=== PATIENT | female | born 1945 | race Hispanic/Latino ===

== ENCOUNTER 2017-07-15 02:46 | Inpatient (IN) | payer MEDICARE ==
[2017-07-15] MEDS ORDERED: ATROVENT IH ONE (03:30)
[2017-07-15] MEDS ORDERED: DECADRON 20 MG in NACL 0.9% 50 ML IV ONE (03:30)
[2017-07-15] MEDS ORDERED: XOPENEX IH ONE (03:30)
--- NOTE | 2017-07-15 03:35 | XRay Report ---
FINAL REPORT EXAM: XR CHEST ROUTINE 2V HISTORY: Shortness of breath COMPARISON: None available. FINDINGS:: Frontal and lateral views of the chest obtained. Mild cardiac enlargement. Prominence of the interstitium concerning for edema. No gross effusion or pneumothorax. Bony structures are grossly intact. IMPRESSION:: Findings concerning for mild pulmonary edema.
[2017-07-15] MEDS ORDERED: LASIX IV ONE (03:58)
--- NOTE | 2017-07-15 03:58 | Emergency Department Report ---
ED Shortness of Breath HPI - General Chief Complaint: Dyspnea/Respdistress Stated Complaint: PIERO Time Seen by Provider: 07/15/17 03:29 Source: patient, EMS Mode of arrival: Stretcher Limitations: No Limitations - History of Present Illness Initial Comments: 71 YO FEMALE WITH C/O SOB THAT BEGAN SUDDENLY WHILE AT HOME. PT HAS H/O CHF, HTN, AND SMOKER 1/2 PPD FOR MOST OF HER LIFE. EMS WAS CALLED TO [facility] HOME AND FOUND OXYGEN SATURATION OF 87 % ON RA, SHE WAS GIVEN A BREATHING TREATMENT AND SATURATION ELEVATED TO MID NINETIES. PT DENIES H/O COPD/EMPHYSEMA BUT THE ENTIRE ROOM SMELL OF CIGARETTE SMOKE Complaint: shortness of breath -: Sudden Severity: severe Improves With: bronchodilators, upright position Worsens With: nothing Known History Of: congestive heart failure Context: other (CIGARETTE SMOKE) Treatments Prior to Arrival: oxygen, bronchodilator - Related Data Home Oxygen Therapy: No Allergies Allergy/AdvReac Type Severity Reaction Status Date / Time No Known Allergies Allergy Unverified 07/15/17 03:10 ED Review of Systems ROS: Stated complaint: PIERO Other details as noted in HPI Constitutional: denies: chills, fever Eyes: denies: eye pain, eye discharge, vision change ENT: denies: ear pain, throat pain Respiratory: cough, shortness of breath, SOB at rest. denies: wheezing Cardiovascular: denies: chest pain, palpitations Endocrine: no symptoms reported Gastrointestinal: denies: abdominal pain, nausea, diarrhea Genitourinary: denies: urgency, dysuria, discharge Musculoskeletal: denies: back pain, joint swelling, arthralgia Skin: denies: rash, lesions Neurological: denies: headache, weakness, paresthesias Psychiatric: denies: anxiety, depression Hematological/Lymphatic: denies: easy bleeding, easy bruising ED Past Medical Hx - Past Medical History Hx Hypertension: Yes Hx Heart Attack/AMI: Yes Additional medical history: pneumonia - Surgical History Additional Surgical History: breast surgery - Social History Smoking Status: Heavy Tobacco Smoker Substance Use Type: None ED Physical Exam - General Limitations: No Limitations General appearance: alert, in distress - Head Head exam: Present: atraumatic, normocephalic - Eye Eye exam: Present: normal appearance, EOMI - ENT ENT exam: Present: mucous membranes moist - Neck Neck exam: Present: normal inspection, full ROM - Respiratory Respiratory exam: Present: normal lung sounds bilaterally, respiratory distress , decreased breath sounds - Cardiovascular Cardiovascular Exam: Present: normal rhythm, tachycardia (115). Absent: systolic murmur, diastolic murmur, rubs, gallop - GI/Abdominal GI/Abdominal exam: Present: soft, normal bowel sounds - Rectal Rectal exam: Present: deferred - Extremities Exam Extremities exam: Present: normal inspection, full ROM. Absent: pedal edema - Back Exam Back exam: Present: normal inspection, full ROM - Neurological Exam Neurological exam: Present: alert, oriented X3, CN II-XII intact - Psychiatric Psychiatric exam: Present: normal affect, normal mood - Skin Skin exam: Present: warm, dry, intact, normal color. Absent: rash ED Course Vital Signs 07/15/17 03:03 Temperature 97.7 F Pulse Rate 103 H Respiratory 24 Rate Blood Pressure 198/108 O2 Sat by Pulse 96 Oximetry ED Medical Decision Making - Lab Data Result diagrams: 07/15/17 03:40 07/15/17 03:40 - EKG Data -: EKG Interpreted by Ca EKG shows normal: sinus rhythm Rate: tachycardia - EKG Data Interpretation: other (LBBB,) - Radiology Data Radiology results: report reviewed (CXR; PULMONARY EDEMA) Critical Care Time: Yes Critical care time in (mins) excluding proc time.: 60 Critical care attestation.: If time is entered above; I have spent that time in minutes in the direct care of this critically ill patient, excluding procedure time. SERGIO Critical Care Time: 60 MINUTES ED Disposition Clinical Impression: CHF (congestive heart failure) Qualifiers: Congestive heart failure type: unspecified congestive heart failure type Congestive heart failure chronicity: acute Qualified Code(s): I50.9 - Heart failure, unspecified COPD (chronic obstructive pulmonary disease) Qualifiers: COPD type: unspecified COPD Qualified Code(s): J44.9 - Chronic obstructive pulmonary disease, unspecified Disposition: DC-09 OP ADMIT IP TO THIS HOSP Is pt being admited?: Yes Condition: Stable Time of Disposition: 05:18 (CASE REVIEWED WITH DR WHITTAKER WHO WILL ADMIT TH EPT)
[2017-07-15 04:17] LABS: Basophils % (Auto) 0.2 % (0.0-1.8); Eosinophils % (Auto) 0.1 % (0.0-4.3); Hemoglobin 14.6 gm/dl (10.1-14.3); Mean Corpuscular HGB Conc 35 % (30-34); Mean Corpuscular Hemoglobin 32 pg (28-32); Mean Corpuscular Volume 91 fl (79-97); Red Blood Count 4.62 M/mm3 (3.65-5.03); Red Cell Distribution Width 13.4 % (13.2-15.2); White Blood Count 7.5 K/mm3 (4.5-11.0)
[2017-07-15 04:20] LABS: Creatine Kinase MB 5.9 ng/mL (0.0-4.0)
[2017-07-15 04:21] LABS: Alanine Aminotransferase 23 units/L (7-56); Albumin 4.2 g/dL (3.9-5); Alkaline Phosphatase 73 units/L (35-129); Creatine Kinase 107 units/L (30-135)
[2017-07-15 04:26] LABS: Bilirubin,Direct < 0.2 mg/dL (0-0.2)
[2017-07-15 04:36] LABS: Anion Gap 21 mmol/L; BUN/Creatinine Ratio 28; Blood Urea Nitrogen 22 mg/dL (7-17); Carbon Dioxide 26 mmol/L (22-30); Chloride 99.3 mmol/L (98-107); Glucose 144 mg/dL (65-100); Sodium 142 mmol/L (137-145)
[2017-07-15 04:38] LABS: Platelet Count 123 K/mm3 (140-440)
[2017-07-15 04:48] LABS: Albumin/Globulin Ratio 1.6 %; Total Protein 6.9 g/dL (6.3-8.2)
[2017-07-15] MEDS ORDERED: PROAIR IH PRN (09:42)
--- NOTE | 2017-07-15 09:43 | History and Physical Report ---
<PB TEE - Last Filed: 07/15/17 14:18> History of Present Illness Date of examination: 07/15/17 Date of admission: 07/15/17 04:26 Chief complaint: Shortness of breath History of present illness: Patient is a 71 years old female with past medical history of hypertension, COPD and heart attack who presents to emergency department for chief complaint of shortness of breath. Until yesterday patient was at her normal baseline state of health. Patient developed difficulty of breathing yesterday and she has had progressive worsening of shortness of breath. Yesterday while she was at home walking to her bedroom, shortly thereafter, she felt like she could not catch her breath and got worried so called 911 and brought her to the Emergency Department. She is not on oxygen at home. Patient denies she has had no fevers, chills, or night sweats. No hx of recurrent pneumonia. He has no sick contact, TB exposure. Patient currently smoke half a pack a day. Past History Past Medical History: COPD, hypertension Past Surgical History: Other (breast surgery) Social history: smoking. denies: alcohol abuse Family history: hypertension Medications and Allergies Allergies Allergy/AdvReac Type Severity Reaction Status Date / Time No Known Allergies Allergy Unverified 07/15/17 03:10 Home Medications Medication Instructions Recorded Confirmed Last Taken Type Carvedilol [Coreg] 6.25 mg PO QDAY 07/15/17 07/15/17 Unknown History Citalopram [celeXA] 20 mg PO QDAY 07/15/17 07/15/17 Unknown History Digoxin [Lanoxin] 0.25 mg PO DAILY 07/15/17 07/15/17 Unknown History Lovastatin [Altoprev] 20 mg PO DAILY 07/15/17 07/15/17 Unknown History Spironolactone [Aldactone] 25 mg PO QDAY 07/15/17 07/15/17 Unknown History Active Meds: Active Medications Albuterol (Proair) 2 puff IH Q4HRT PRN PRN Reason: Shortness Of Breath Albuterol/Ipratropium (Duoneb *Not For Prn Use*) 1 ampul IH Q6HRT ANG[facility]LICA Furosemide (Lasix) 40 mg IV BID ANGÉLICA Levofloxacin/Dextrose (Levaquin 750mg/150ml) 750 mg in 150 mls @ 100 mls/hr IV Q24HR [facility] PRN Reason: Protocol Methylprednisolone Sodium Succinate (Solu-Medrol) 60 mg IV Q8HR ANGÉLICA Review of Systems Constitutional: no weight gain, no fever, no chills Ears, nose, mouth and throat: nasal congestion, no nose pain, no nasal discharge Breasts: no swelling, no mass Cardiovascular: lightheadedness, shortness of breath, dyspnea on exertion, paroxysmal nocturnal dyspnea, no chest pain, no edema, no syncope Respiratory: cough, shortness of breath, dyspnea on exertion Gastrointestinal: no diarrhea, no constipation, no change in bowel habits Genitourinary Female: no dysmenorrhea, no flank pain Rectal: no incontinence, no bleeding Musculoskeletal: no arm numbness/tingling, no low back pain, no shooting leg pain Integumentary: no sores, no wounds, no jaundice Neurological: no weakness, no parathesias, no numbness Psychiatric: no change in sleep habits, no sleep disturbances, no insomnia, no hypersomnia Endocrine: no heat intolerance, no polyphagia, no excessive thirst Hematologic/Lymphatic: no easy bruising, no easy bleeding Allergic/Immunologic: no urticaria, no allergic rhinitis Exam - Constitutional Vitals: Temp Pulse Resp BP Pulse Ox 98.1 F 99 H 18 179/94 98 07/15/17 06:06 07/15/17 06:06 07/15/17 06:06 07/15/17 06:06 07/15/17 07:41 General appearance: Present: no acute distress - EENT Eyes: Present: PERRL ENT: hearing intact - Neck Neck: Present: supple - Respiratory Respiratory effort: normal Respiratory: bilateral: rales, wheezing - Cardiovascular Rhythm: regular Heart Sounds: Present: S1 & S2 - Abdominal General gastrointestinal: Present: soft, non-tender - Integumentary Integumentary: Present: clear, warm, dry - Musculoskeletal Musculoskeletal: strength equal bilaterally - Psychiatric Psychiatric: appropriate mood/affect - Neurologic Neurologic: CNII-XII intact - Allied Health Allied health notes reviewed: nursing Results - Labs CBC & Chem 7: 07/15/17 03:40 07/15/17 03:40 Labs: Laboratory Last Values WBC 7.5 K/mm3 (4.5-11.0) 07/15/17 03:40 RBC 4.62 M/mm3 (3.65-5.03) 07/15/17 03:40 Hgb 14.6 gm/dl (10.1-14.3) H 07/15/17 03:40 Hct 42.0 % (30.3-42.9) 07/15/17 03:40 MCV 91 fl (79-97) 07/15/17 03:40 MCH 32 pg (28-32) 07/15/17 03:40 MCHC 35 % (30-34) H 07/15/17 03:40 RDW 13.4 % (13.2-15.2) 07/15/17 03:40 Plt Count 123 K/mm3 (140-440) L 07/15/17 03:40 Lymph % (Auto) 18.3 % (13.4-35.0) 07/15/17 03:40 Toombs % (Auto) 4.9 % (0.0-7.3) 07/15/17 03:40 Eos % (Auto) 0.1 % (0.0-4.3) 07/15/17 03:40 Baso % (Auto) 0.2 % (0.0-1.8) 07/15/17 03:40 Lymph # 1.4 K/mm3 (1.2-5.4) 07/15/17 03:40 Toombs # 0.4 K/mm3 (0.0-0.8) 07/15/17 03:40 Eos # 0.0 K/mm3 (0.0-0.4) 07/15/17 03:40 Baso # 0.0 K/mm3 (0.0-0.1) 07/15/17 03:40 Seg Neutrophils % 76.5 % (40.0-70.0) H 07/15/17 03:40 Seg Neutrophils # 5.7 K/mm3 (1.8-7.7) 07/15/17 03:40 D-Dimer 243.73 ng/mlDDU (0-234) H 07/15/17 03:40 Sodium 142 mmol/L (137-145) 07/15/17 03:40 Potassium 4.0 mmol/L (3.6-5.0) 07/15/17 03:40 Chloride 99.3 mmol/L (98-107) 07/15/17 03:40 Carbon Dioxide 26 mmol/L (22-30) 07/15/17 03:40 Anion Gap 21 mmol/L 07/15/17 03:40 BUN 22 mg/dL (7-17) H 07/15/17 03:40 Creatinine 0.8 mg/dL (0.7-1.2) 07/15/17 03:40 Estimated GFR > 60 ml/min 07/15/17 03:40 BUN/Creatinine Ratio 28 % 07/15/17 03:40 Glucose 144 mg/dL (65-100) H 07/15/17 03:40 Calcium 9.0 mg/dL (8.4-10.2) 07/15/17 03:40 Total Bilirubin 0.40 mg/dL (0.1-1.2) 07/15/17 03:40 Direct Bilirubin < 0.2 mg/dL (0-0.2) 07/15/17 03:40 AST 23 units/L (5-40) 07/15/17 03:40 ALT 23 units/L (7-56) 07/15/17 03:40 Alkaline Phosphatase 73 units/L (35-129) 07/15/17 03:40 Total Creatine Kinase 107 units/L (30-135) 07/15/17 03:40 CK-MB (CK-2) 5.9 ng/mL (0.0-4.0) H 07/15/17 03:40 CK-MB (CK-2) Rel Index 5.5 (0-4) H 07/15/17 03:40 Troponin T 0.018 ng/mL (0.00-0.029) 07/15/17 03:40 NT-Pro-B Natriuret Pep 03622 pg/mL (0-900) H 07/15/17 03:40 Total Protein 6.9 g/dL (6.3-8.2) 07/15/17 03:40 Albumin 4.2 g/dL (3.9-5) 07/15/17 03:40 Albumin/Globulin Ratio 1.6 % 07/15/17 03:40 - Imaging and Cardiology Chest x-ray: image reviewed (mild pulmonary edema) Assessment and Plan Assessment and plan: Patient is a 71 years old female with past medical history of hypertension, COPD and heart attack who presents to emergency department for chief complaint of shortness of breath. Acute respiratory failure with hypoxia Patient oxygen saturation improved with 2LNC; currently SPO2 98%. No acute respiratory distress noted. Aggressive Nebulizers/Inhalers ABG when necessary Oxygen supplement Supportive care Acute on chronic Congestive heart failure/pulmonary edema Etiology most likely diastolic Echocardiogram ordered CTA showed right pleural effusion Started on Diuresis, beta blockers and ACEI/ARB Strict I&O's and daily weights Low-sodium/cardiac diet/fluid restriction Closely monitor electrolytes Cardiology evaluation Acute COPD exacerbation Continue on Duoneb every 6 hours Started IV steroid Solumedrol Initiated empiric IV Rocephin and azithromycin Oxygen as necessary Hypertensive urgency Continue home antihypertensive medications Closely monitor blood pressure Tobacco abuse Smoking cessation counseling done. Patient strongly advised to quit. DVT prophylaxis Heparin Advance Directives: Yes VTE prophylaxis?: Chemical Contraindication Mechanical VTE Prophylaxis: Contraindicated Plan of care discussed with patient/family: Yes <SEVERINO PORTILLO - Last Filed: 07/15/17 16:27> History of Present Illness Date of admission: 07/15/17 04:26 Medications and Allergies Active Meds: Active Medications Albuterol (Proventil) 2.5 mg IH Q4HRT PRN PRN Reason: Shortness Of Breath Albuterol/Ipratropium (Duoneb *Not For Prn Use*) 1 ampul IH Q6HRT [facility] Last Admin: 07/15/17 13:42 Dose: 1 ampul Amoxicillin/Clavulanate Potassium (Augmentin 875 Mg) 1 each PO Q12HR [facility] Arformoterol Tartrate (Brovana Nebu) 15 mcg IH Q12HRT [facility] Budesonide (Pulmicort) 0.25 mg IH Q12HRT [facility] Diltiazem HCl (Cardizem) 60 mg PO Q6HR [facility] Last Admin: 07/15/17 14:55 Dose: 60 mg Furosemide (Lasix) 20 mg IV BID [facility] Last Admin: 07/15/17 15:03 Dose: 20 mg Lisinopril (Zestril) 40 mg PO QDAY [facility] Last Admin: 07/15/17 14:56 Dose: 40 mg Methylprednisolone Sodium Succinate (Solu-Medrol) 60 mg IV Q8H [facility] Last Admin: 07/15/17 14:53 Dose: 60 mg Exam - Physical Exam Narrative exam: VITAL SIGNS: Reviewed. GENERAL: The patient appeared chronically ill,. Vital signs as documented. HEAD: No signs of head trauma. Marked temporal wasting, cachexia EYES: Pupils are equal. Extraocular motions intact. EARS: Hearing grossly intact. MOUTH: Oropharynx is normal. NECK: No adenopathy, no JVD. CHEST: Chest with diminished breath sounds bilaterally. No wheezes, rales, or rhonchi. CARDIAC: Regular rate and rhythm. S1 and S2, without murmurs, gallops, or rubs. VASCULAR: No Edema. Peripheral pulses normal and equal in all extremities. ABDOMEN: Soft, without detectable tenderness. No sign of distention. No rebound or guarding, and no masses palpated. Bowel Sounds normal. MUSCULOSKELETAL: Good range of motion of all major joints. Extremities without clubbing, cyanosis or edema. NEUROLOGIC EXAM: Alert and oriented x 3. No focal sensory or strength deficits. Speech normal. Follows commands. PSYCHIATRIC: Mood normal. SKIN: No rash or lesions. - Constitutional Vitals: Temp Pulse Resp BP Pulse Ox 98.0 F 102 H 20 160/94 94 07/15/17 09:44 07/15/17 14:56 07/15/17 14:07 07/15/17 14:56 07/15/17 09:44 Results - Labs CBC & Chem 7: 07/15/17 03:40 07/15/17 03:40 Labs: Laboratory Last Values WBC 7.5 K/mm3 (4.5-11.0) 07/15/17 03:40 RBC 4.62 M/mm3 (3.65-5.03) 07/15/17 03:40 Hgb 14.6 gm/dl (10.1-14.3) H 07/15/17 03:40 Hct 42.0 % (30.3-42.9) 07/15/17 03:40 MCV 91 fl (79-97) 07/15/17 03:40 MCH 32 pg (28-32) 07/15/17 03:40 MCHC 35 % (30-34) H 07/15/17 03:40 RDW 13.4 % (13.2-15.2) 07/15/17 03:40 Plt Count 123 K/mm3 (140-440) L 07/15/17 03:40 Lymph % (Auto) 18.3 % (13.4-35.0) 07/15/17 03:40 Toombs % (Auto) 4.9 % (0.0-7.3) 07/15/17 03:40 Eos % (Auto) 0.1 % (0.0-4.3) 07/15/17 03:40 Baso % (Auto) 0.2 % (0.0-1.8) 07/15/17 03:40 Lymph # 1.4 K/mm3 (1.2-5.4) 07/15/17 03:40 Toombs # 0.4 K/mm3 (0.0-0.8) 07/15/17 03:40 Eos # 0.0 K/mm3 (0.0-0.4) 07/15/17 03:40 Baso # 0.0 K/mm3 (0.0-0.1) 07/15/17 03:40 Seg Neutrophils % 76.5 % (40.0-70.0) H 07/15/17 03:40 Seg Neutrophils # 5.7 K/mm3 (1.8-7.7) 07/15/17 03:40 D-Dimer 243.73 ng/mlDDU (0-234) H 07/15/17 03:40 Sodium 142 mmol/L (137-145) 07/15/17 03:40 Potassium 4.0 mmol/L (3.6-5.0) 07/15/17 03:40 Chloride 99.3 mmol/L (98-107) 07/15/17 03:40 Carbon Dioxide 26 mmol/L (22-30) 07/15/17 03:40 Anion Gap 21 mmol/L 07/15/17 03:40 BUN 22 mg/dL (7-17) H 07/15/17 03:40 Creatinine 0.8 mg/dL (0.7-1.2) 07/15/17 03:40 Estimated GFR > 60 ml/min 07/15/17 03:40 BUN/Creatinine Ratio 28 % 07/15/17 03:40 Glucose 144 mg/dL (65-100) H 07/15/17 03:40 Calcium 9.0 mg/dL (8.4-10.2) 07/15/17 03:40 Total Bilirubin 0.40 mg/dL (0.1-1.2) 07/15/17 03:40 Direct Bilirubin < 0.2 mg/dL (0-0.2) 07/15/17 03:40 AST 23 units/L (5-40) 07/15/17 03:40 ALT 23 units/L (7-56) 07/15/17 03:40 Alkaline Phosphatase 73 units/L (35-129) 07/15/17 03:40 Total Creatine Kinase 107 units/L (30-135) 07/15/17 03:40 CK-MB (CK-2) 5.9 ng/mL (0.0-4.0) H 07/15/17 03:40 CK-MB (CK-2) Rel Index 5.5 (0-4) H 07/15/17 03:40 Troponin T 0.018 ng/mL (0.00-0.029) 07/15/17 03:40 NT-Pro-B Natriuret Pep 08875 pg/mL (0-900) H 07/15/17 03:40 Total Protein 6.9 g/dL (6.3-8.2) 07/15/17 03:40 Albumin 4.2 g/dL (3.9-5) 07/15/17 03:40 Albumin/Globulin Ratio 1.6 % 07/15/17 03:40 - Imaging and Cardiology Chest x-ray: image reviewed Assessment and Plan Assessment and plan: I saw and evaluated the patient. I agree with the findings and the plan of care as documented in the Nurse Practitioner's~note, with the following corrections and additions. Cachexia with anorexia BMI of 19. Sinus tachycardia Discussed with patient extensively patient has 1-1/2 pack day smoking history for almost her entire life. She is at this point considering quitting but has not committed to date. She reports improvement in her orthopnea. She does follow with Dr. joao Salgado. We'll discontinue IV Rocephin and azithromycin on place patient on Augmentin. We'll taper steroids as needed in the a.m. We'll restart home medication considering sinus tachycardia. Anticipate improvement in symptomatology. Cardiology consult appreciated.
[2017-07-15] MEDS ORDERED: LEVAQUIN 750MG/150ML 750 MG/150 ML BAG IV SCH ×2 (10:00→13:00)
[2017-07-15] MEDS ORDERED: APRESOLINE IV PRN (10:49)
[2017-07-15] MEDS ORDERED: APRESOLINE ONE (10:58)
[2017-07-15] MEDS ORDERED: APRESOLINE IV ONE (11:10)
--- NOTE | 2017-07-15 11:21 | Cat Scan Report ---
CTA CHEST: HISTORY: Elevated d-dimer. COMPARISON: none. TECHNIQUE: Helical CT in 1.25mm intervals following IV contrast. Pulmonary embolus protocol. Sagittal and coronal reformatted images. Rotational MIP images. FINDINGS: Contrast bolus is satisfactory. No pulmonary embolus is identified. Thyroid gland: Normal. Tracheobronchial tree: Normal. Esophagus: Normal. Heart: There is mild to moderate cardiomegaly. Pericardium: Normal. Mediastinum: Normal. Aortic calcifications are noted. Lung Fleming: Minor linear scarring is noted in the lateral right lower lobe. The remainder the lungs are clear. Trace right pleural effusion. Pleural Spaces: Normal. Musculoskeletal: Osteopenia and degenerative changes. No evidence for fracture or suspicious bony lesion. IMPRESSION: No evidence for pulmonary embolus. Cardiomegaly and trace right pleural effusion.
[2017-07-15] MEDS ORDERED: PROVENTIL IH PRN (12:15)
--- NOTE | 2017-07-15 12:25 | Consultation ---
History of Present Illness Consult date: 07/15/17 Requesting physician: SEVERINO PORTILLO Consult reason: congestive heart failure History of present illness: The patient is a 71 years old female with past medical history significant for hypertension, COPD and tobacco use. She is previously unknown to our practice. She presented with c/o SOB since yesterday. Until yesterday patient states that she was in her normal baseline state of health. Patient developed difficulty breathing yesterday and she has had progressive worsening of shortness of breath. She states she was also experiencing chest pressure and a smothering sensation when lying flat. She denies any chest pain, palpitations, n/v, diaphoresis, dizziness or syncope. She denies any prior cardiac issues or prior cardiac evaluation. BP on admission was noted to be 198/108. DDimer was noted to be elevated and thus pt underwent chest CTA which was negative for PE, showed trace right pleural effusion. Pro-BNP [id number]. Admisison EKG demonstrates SR with LBBB. Past History Past Medical History: COPD, hypertension Past Surgical History: Other (breast surgery) Social history: smoking. denies: alcohol abuse Family history: hypertension Medications and Allergies Allergies Allergy/AdvReac Type Severity Reaction Status Date / Time No Known Allergies Allergy Unverified 07/15/17 03:10 Active Meds: Active Medications Albuterol (Proventil) 2.5 mg IH Q4HRT PRN PRN Reason: Shortness Of Breath Albuterol/Ipratropium (Duoneb *Not For Prn Use*) 1 ampul IH Q6HRT ANGÉLICA Arformoterol Tartrate (Brovana Nebu) 15 mcg IH Q12HRT ANGÉLICA Budesonide (Pulmicort) 0.25 mg IH Q12HRT ANGÉLICA Furosemide (Lasix) 40 mg IV BID ANGÉLICA Levofloxacin/Dextrose (Levaquin 750mg/150ml) 750 mg in 150 mls @ 100 mls/hr IV Q48H ANGÉLICA PRN Reason: Protocol Methylprednisolone Sodium Succinate (Solu-Medrol) 60 mg IV Q8H ANGÉLICA Review of Systems Constitutional: no weight loss, no weight gain, no fever, no chills, no sweats Ears, nose, mouth and throat: no ear pain, no nose pain, no sinus pressure, no sinus pain Cardiovascular: orthopnea, shortness of breath, dyspnea on exertion, high blood pressure, no chest pain, no palpitations, no rapid/irregular heart beat, no edema, no syncope, no lightheadedness, no leg edema Respiratory: shortness of breath, dyspnea on exertion, no cough, no congestion, no wheezing, no pain on inspiration Gastrointestinal: no abdominal pain, no nausea, no vomiting, no diarrhea, no constipation, no change in bowel habits Genitourinary Female: no pelvic pain, no flank pain, no dysuria, no urinary frequency, no urgency Musculoskeletal: no neck stiffness, no neck pain, no shooting arm pain, no arm numbness/tingling, no low back pain, no shooting leg pain, no leg numbness/ tingling, no redness of joints Integumentary: no rash, no pruritis, no redness, no sores, no wounds Neurological: no head injury, no paralysis, no weakness, no parathesias, no numbness, no tingling, no seizures, no syncope Psychiatric: no anxiety Endocrine: no cold intolerance, no heat intolerance Hematologic/Lymphatic: no easy bruising, no easy bleeding, no lymphadenopathy Allergic/Immunologic: no urticaria, no wheezing, no persistent infections Physical Examination Vital Signs Temp Pulse Resp BP Pulse Ox 97.7 F 103 H 24 198/108 96 07/15/17 03:03 07/15/17 03:03 07/15/17 03:03 07/15/17 03:03 07/15/17 03:03 General appearance: no acute distress HEENT: Positive: PERRL, Normocephaly, Mucus Membranes Moist Neck: Positive: neck supple, trachea midline Cardiac: Positive: Reg Rate and Rhythm, S1/S2, Systolic Murmur Lungs: Positive: clear to auscultation Neuro: Positive: Grossly Intact, Cranial Nerve 2-12 Intact Abdomen: Positive: Soft. Negative: Tender Skin: Positive: Clear. Negative: Rash Musculoskeletal: No Fluid Collection, No Pain, Normal Range of Motion Results 07/15/17 03:40 07/15/17 03:40 Cardiac Enzymes 07/15/17 Range/Units 03:40 AST 23 (5-40) units/L CK-MB (CK-2) 5.9 H (0.0-4.0) ng/mL CBC 07/15/17 Range/Units 03:40 WBC 7.5 (4.5-11.0) K/mm3 RBC 4.62 (3.65-5.03) M/mm3 Hgb 14.6 H (10.1-14.3) gm/dl Hct 42.0 (30.3-42.9) % Plt Count 123 L (140-440) K/mm3 Lymph # 1.4 (1.2-5.4) K/mm3 [place] # 0.4 (0.0-0.8) K/mm3 Eos # 0.0 (0.0-0.4) K/mm3 Baso # 0.0 (0.0-0.1) K/mm3 Comprehensive Metabolic Panel 07/15/17 07/15/17 Range/Units 03:40 03:40 Sodium 142 (137-145) mmol/L Potassium 4.0 (3.6-5.0) mmol/L Chloride 99.3 (98-107) mmol/L Carbon Dioxide 26 (22-30) mmol/L BUN 22 H (7-17) mg/dL Creatinine 0.8 (0.7-1.2) mg/dL Glucose 144 H (65-100) mg/dL Calcium 9.0 (8.4-10.2) mg/dL Direct Bilirubin < 0.2 (0-0.2) mg/dL AST 23 (5-40) units/L ALT 23 (7-56) units/L Alkaline Phosphatase 73 (35-129) units/L Total Protein 6.9 (6.3-8.2) g/dL Albumin 4.2 (3.9-5) g/dL - Imaging and Cardiology Echo: pending EKG: report reviewed, image reviewed EKG interpretations - Telemetry EKG Rhythm: Sinus Rhythm - EKG Sinus rhythms and dysrhythmias: sinus rhythm AV and intraventricular conduction: left bundle branch block Assessment and Plan Pt's accelerated HTN could be contributing to acutely decompensated heart failure. Optimize anti-hypertensive regimen - initiate cardizem and lisinopril. Cont diuresis with IV lasix, 20mg BID. Obtain echo. Plan for pharmacologic stress test in AM. The patient has been seen in conjunction with Dr. Moss who agrees with the assessment and plan of care. - Patient Problems (1) Acute heart failure Current Visit: Yes Status: Acute (2) Accelerated hypertension Current Visit: Yes Status: Acute (3) Left bundle branch block Current Visit: Yes Status: Acute (4) COPD (chronic obstructive pulmonary disease) Current Visit: Yes Status: Chronic Qualifiers: COPD type: unspecified COPD Qualified Code(s): J44.9 - Chronic obstructive pulmonary disease, unspecified
[2017-07-15] MEDS ORDERED: LASIX IV SCH (13:00)
[2017-07-15] MEDS: DUONEB *Not for PRN Use IH SCH ×2 (13:42→19:18)
[2017-07-15] MEDS: CARDIZEM PO SCH ×2 (14:55→21:59)
[2017-07-15] MEDS: ZESTRIL PO SCH (14:56)
[2017-07-15] MEDS: LASIX IV SCH ×2 (15:03→21:58)
[2017-07-15] MEDS: BROVANA NEBU IH SCH (19:17)
[2017-07-15] MEDS: PULMICORT IH SCH (19:17)
[2017-07-15] MEDS: AUGMENTIN 875 MG PO SCH (21:59)
[2017-07-16] MEDS: CARDIZEM PO SCH ×4 (00:50→23:13)
[2017-07-16] MEDS: DUONEB *Not for PRN Use IH SCH ×4 (01:30→20:26)
[2017-07-16 06:16] LABS: Calcium 8.8 mg/dL (8.4-10.2); Potassium 3.9 mmol/L (3.6-5.0)
[2017-07-16] MEDS ORDERED: LEXISCAN IV ONE ×2 (08:11→08:15)
[2017-07-16] MEDS: PULMICORT IH SCH ×2 (09:33→20:26)
[2017-07-16] MEDS: BROVANA NEBU IH SCH ×2 (09:34→20:26)
[2017-07-16] MEDS ORDERED: ALDACTONE PO SCH (10:00)
[2017-07-16] MEDS ORDERED: LANOXIN PO SCH (10:00)
[2017-07-16] MEDS ORDERED: CARDIZEM PO SCH (10:00)
--- NOTE | 2017-07-16 10:23 | Progress Note ---
Assessment and Plan Assessment and plan: Assessment and Plan Assessment and plan: Patient is a 71 years old female with past medical history of hypertension, COPD and heart attack who presents to emergency department for chief complaint of shortness of breath. Acute respiratory failure with hypoxia Patient oxygen saturation improved with 2LNC; currently SPO2 98%. No acute respiratory distress noted. Aggressive Nebulizers/Inhalers ABG when necessary Oxygen supplement Supportive care Acute on chronic Congestive heart failure/pulmonary edema Etiology most likely diastolic Echocardiogram ordered CTA showed right pleural effusion Started on Diuresis, beta blockers and ACEI/ARB Strict I&O's and daily weights Low-sodium/cardiac diet/fluid restriction Closely monitor electrolytes Cardiology evaluation Acute COPD exacerbation Continue on Duoneb every 6 hours On IV steroid Solumedrol Initiated empiric IV Rocephin and azithromycin Oxygen as necessary Hypertensive urgency Continue home antihypertensive medications Closely monitor blood pressure Tobacco abuse Smoking cessation counseling done. Patient strongly advised to quit. DVT prophylaxis Heparin History Interval history: Sob better Hospitalist Physical - Constitutional Vitals: Temp Pulse Resp BP Pulse Ox 98.0 F 97 H 20 85/51 95 07/16/17 04:16 07/16/17 09:45 07/16/17 09:45 07/16/17 04:16 07/16/17 09:34 General appearance: Present: no acute distress - EENT Eyes: Present: PERRL, EOM intact ENT: hearing intact - Neck Neck: Present: supple, normal ROM - Respiratory Respiratory: bilateral: rhonchi, wheezing - Cardiovascular Heart rate: 90 Rhythm: regular - Extremities Extremities: no ischemia, pulses intact Peripheral Pulses: within normal limits - Abdominal General gastrointestinal: soft, non-tender, non-distended - Integumentary Integumentary: Present: clear, warm - Psychiatric Psychiatric: appropriate mood/affect, intact judgment & insight, memory intact, cooperative - Neurologic Neurologic: CNII-XII intact, gait normal - Allied Health Allied health notes reviewed: nursing, case management Results - Labs CBC & Chem 7: 07/15/17 03:40 07/17/17 04:17 Labs: Laboratory Last Values WBC 7.5 K/mm3 (4.5-11.0) 07/15/17 03:40 RBC 4.62 M/mm3 (3.65-5.03) 07/15/17 03:40 Hgb 14.6 gm/dl (10.1-14.3) H 07/15/17 03:40 Hct 42.0 % (30.3-42.9) 07/15/17 03:40 MCV 91 fl (79-97) 07/15/17 03:40 MCH 32 pg (28-32) 07/15/17 03:40 MCHC 35 % (30-34) H 07/15/17 03:40 RDW 13.4 % (13.2-15.2) 07/15/17 03:40 Plt Count 123 K/mm3 (140-440) L 07/15/17 03:40 Lymph % (Auto) 18.3 % (13.4-35.0) 07/15/17 03:40 [place] % (Auto) 4.9 % (0.0-7.3) 07/15/17 03:40 Eos % (Auto) 0.1 % (0.0-4.3) 07/15/17 03:40 Baso % (Auto) 0.2 % (0.0-1.8) 07/15/17 03:40 Lymph # 1.4 K/mm3 (1.2-5.4) 07/15/17 03:40 [place] # 0.4 K/mm3 (0.0-0.8) 07/15/17 03:40 Eos # 0.0 K/mm3 (0.0-0.4) 07/15/17 03:40 Baso # 0.0 K/mm3 (0.0-0.1) 07/15/17 03:40 Seg Neutrophils % 76.5 % (40.0-70.0) H 07/15/17 03:40 Seg Neutrophils # 5.7 K/mm3 (1.8-7.7) 07/15/17 03:40 D-Dimer 243.73 ng/mlDDU (0-234) H 07/15/17 03:40 Sodium 143 mmol/L (137-145) 07/16/17 05:40 Potassium 3.9 mmol/L (3.6-5.0) 07/16/17 05:40 Chloride 96.0 mmol/L (98-107) L 07/16/17 05:40 Carbon Dioxide 27 mmol/L (22-30) 07/16/17 05:40 Anion Gap 24 mmol/L 07/16/17 05:40 BUN 36 mg/dL (7-17) H 07/16/17 05:40 Creatinine 1.3 mg/dL (0.7-1.2) H D 07/16/17 05:40 Estimated GFR 40 ml/min 07/16/17 05:40 BUN/Creatinine Ratio 28 % 07/16/17 05:40 Glucose 148 mg/dL (65-100) H 07/16/17 05:40 Calcium 8.8 mg/dL (8.4-10.2) 07/16/17 05:40 Total Bilirubin 0.40 mg/dL (0.1-1.2) 07/15/17 03:40 Direct Bilirubin < 0.2 mg/dL (0-0.2) 07/15/17 03:40 AST 23 units/L (5-40) 07/15/17 03:40 ALT 23 units/L (7-56) 07/15/17 03:40 Alkaline Phosphatase 73 units/L (35-129) 07/15/17 03:40 Total Creatine Kinase 107 units/L (30-135) 07/15/17 03:40 CK-MB (CK-2) 5.9 ng/mL (0.0-4.0) H 07/15/17 03:40 CK-MB (CK-2) Rel Index 5.5 (0-4) H 07/15/17 03:40 Troponin T 0.018 ng/mL (0.00-0.029) 07/15/17 03:40 NT-Pro-B Natriuret Pep 68198 pg/mL (0-900) H 07/15/17 03:40 Total Protein 6.9 g/dL (6.3-8.2) 07/15/17 03:40 Albumin 4.2 g/dL (3.9-5) 07/15/17 03:40 Albumin/Globulin Ratio 1.6 % 07/15/17 03:40
[2017-07-16] MEDS: COREG PO SCH (12:37)
[2017-07-16] MEDS: ZESTRIL PO SCH (12:38)
[2017-07-16] MEDS: celeXA PO SCH (12:38)
[2017-07-16] MEDS: AUGMENTIN 875 MG PO SCH ×2 (12:38→23:13)
--- NOTE | 2017-07-16 14:32 | Progress Note ---
Assessment and Plan Hold diuretics for now due to increased BUN and creatinine levels. Discontinue digoxin. Await echocardiogram. She will benefit from coronary angiography on Tuesday morning due to abnormal stress test. - Patient Problems (1) Acute heart failure Current Visit: Yes Status: Acute (2) Chest pain Current Visit: Yes Status: Acute (3) Abnormal stress test Current Visit: Yes Status: Acute (4) Accelerated hypertension Current Visit: Yes Status: Acute (5) Left bundle branch block Current Visit: Yes Status: Acute (6) COPD (chronic obstructive pulmonary disease) Current Visit: Yes Status: Chronic Qualifiers: COPD type: unspecified COPD Qualified Code(s): J44.9 - Chronic obstructive pulmonary disease, unspecified Subjective Date of service: 07/16/17 Principal diagnosis: Acute HF, Accelerated HTN, Chest Pain, LBBB, COPD Interval history: She is less short of breath. She underwent pharmacologic stress test with nuclear imaging this morning which was positive for ischemia. Objective Vital Signs Temp Pulse Pulse Resp Resp BP Pulse Ox 07/16/17 12:57 88 07/16/17 10:22 95 07/16/17 09:45 97 H 20 07/16/17 09:34 95 H 20 95 07/16/17 08:42 92 H 140/63 07/16/17 08:41 89 149/61 07/16/17 08:40 97 H 151/76 07/16/17 08:39 92 H 152/69 07/16/17 08:38 105 H 148/67 07/16/17 08:37 101 H 139/71 07/16/17 08:03 67 141/61 07/16/17 04:16 98.0 F 84 18 85/51 99 07/16/17 00:50 52 L 131/60 07/16/17 00:22 98.3 F 85 18 131/60 98 07/15/17 19:55 98.1 F 74 18 111/94 83 L 07/15/17 19:27 74 18 07/15/17 19:17 68 18 98 07/15/17 16:00 98.8 F 85 20 125/80 99 07/15/17 15:54 97.6 F 91 H 18 107/43 93 07/15/17 14:56 102 H 160/94 07/15/17 14:55 102 H 160/94 07/15/17 14:07 98 H 20 - Physical Examination General: No Apparent Distress HEENT: Positive: PERRL, Normocephaly, Mucus Membranes Moist Neck: Positive: neck supple, trachea midline Cardiac: Positive: Reg Rate and Rhythm, S1/S2 Lungs: Positive: Rhonchi Neuro: Positive: Grossly Intact, Cranial Nerve 2-12 Intact Abdomen: Positive: Soft, Active Bowel Sounds. Negative: Tender Skin: Positive: Clear. Negative: Rash Musculoskeletal: Normal Range of Motion Extremities: Absent: edema - Labs and Meds Comprehensive Metabolic Panel 07/16/17 Range/Units 05:40 Sodium 143 (137-145) mmol/L Potassium 3.9 (3.6-5.0) mmol/L Chloride 96.0 L (98-107) mmol/L Carbon Dioxide 27 (22-30) mmol/L BUN 36 H (7-17) mg/dL Creatinine 1.3 H D (0.7-1.2) mg/dL Glucose 148 H (65-100) mg/dL Calcium 8.8 (8.4-10.2) mg/dL - Imaging and Cardiology EKG: report reviewed, image reviewed Echo: pending - EKG Sinus rhythms and dysrhythmias: sinus rhythm AV and intraventricular conduction: left bundle branch block
--- NOTE | 2017-07-16 21:33 | Treadmill Report ---
REASON FOR STUDY: Acute heart failure and left bundle-branch block. STRESS TEST PROTOCOL: The patient received 0.4 mg of Lexiscan intravenously over 10 seconds. Technetium-99m tetrofosmin was subsequently injected. Baseline EKG, normal sinus rhythm with left bundle-branch block, septal myocardial infarction of undetermined age. Lexiscan EKG, no significant change from baseline. No chest pain. No arrhythmias. IMPRESSION: Nondiagnostic due to baseline EKG abnormalities. Nuclear imaging report to follow. JOB# [id number] AGO/NTS
[2017-07-17] MEDS: DUONEB *Not for PRN Use IH SCH ×5 (03:10→20:33)
[2017-07-17] MEDS: CARDIZEM PO SCH ×2 (03:27→13:36)
[2017-07-17 05:57] LABS: Calcium 8.7 mg/dL (8.4-10.2); Chloride 97.7 mmol/L (98-107); Potassium 3.4 mmol/L (3.6-5.0)
--- NOTE | 2017-07-17 07:46 | Treadmill Report ---
THALLIUM REPORT REASON FOR STUDY: Chest pain. IMAGING PROTOCOL: The patient received 10 mCi of technetium-99m Tetrofosmin for rest imaging, and 28 mCi of technetium-99m Tetrofosmin for stress imaging. Imaging for all procedures was completed 30-90 minutes following the initial injection of Technetium 99m Tetrofosmin. SPECT imaging in the 180 degree arc was performed in the right anterior oblique projection. Computerized reconstruction of the images was performed for analysis. NUCLEAR IMAGING RESULTS: Technically limited study due to soft tissue attenuation artifact. Normal left ventricular cavity size with no change from stress to rest. Distribution of radionuclide within the left ventricle revealed a medium size area of photo induction involving the inferior wall. The degree of photo induction is moderate. Rest imaging showed almost complete improvement in this defect. There is also a small area of photo induction involving the inferoapical region. The degree of photo induction is moderate. Rest imaging showed partial improvement in this defect. In addition, there is a small area of photo induction involving the anteroseptal wall. The degree of photo induction is moderate. Rest imaging showed partial improvement in this defect. Gated SPECT imaging revealed moderate global left ventricular systolic dysfunction with severe septal and moderate inferior hypokinesis. The calculated left ventricular ejection fraction is 39%. IMPRESSION: Technically limited study. Medium sized reversible inferior wall defect. Small, partially reversible inferoapical defect. Small, partially reversible anteroseptal defect. Moderate global left ventricular systolic dysfunction with severe septal and moderate inferior hypokinesis. EF 39%. These findings suggest a small area of prior infarction with moderate residual ischemia in the right coronary artery territory. In addition, there is suggestion of a small area of prior infarction with mild residual ischemia in the left anterior descending coronary artery territory. JOB# [id number] [facility]/NTS
[2017-07-17] MEDS: BROVANA NEBU IH SCH ×2 (08:02→20:34)
[2017-07-17] MEDS: PULMICORT IH SCH ×2 (08:03→20:34)
[2017-07-17] MEDS ORDERED: K-DUR PO ONE (09:08)
[2017-07-17] MEDS ORDERED: NACL 0.9% 500 ML 500 ML IV SCH ×2 (10:00→15:00)
[2017-07-17] MEDS: AUGMENTIN 875 MG PO SCH ×2 (10:28→22:00)
[2017-07-17] MEDS: celeXA PO SCH (10:28)
[2017-07-17] MEDS: ZESTRIL PO SCH ×2 (10:40→15:53)
[2017-07-17] MEDS: COREG PO SCH (10:40)
--- NOTE | 2017-07-17 11:00 | Progress Note ---
Assessment and Plan Patient is a 71 years old female with past medical history of hypertension, COPD and heart attack who presents to emergency department for chief complaint of shortness of breath. - Acute respiratory failure with hypoxia Patient oxygen saturation improved with 2LNC; currently SPO2 98%. No acute respiratory distress noted. Aggressive Nebulizers/Inhalers ABG when necessary Oxygen supplement - Acute on chronic systolic heart failure/pulmonary edema Echocardiogram showed sytolic dysfunction with EF of 40-54% Holding diuretic per Cardiology b/c woarsening renal function. cosntinue with, beta blockers and ACEI/ARB Strict I&O's and daily weights Low-sodium/cardiac diet/fluid restriction Cardiology Following. For coronary andgio in am. - Acute COPD exacerbation Continue on Duoneb every 6 hours taper IV steroid Solumedrol Initiated empiric IV Rocephin and azithromycin Oxygen as necessary - Hyperlgycemia: may be steriod induced check A1c. SSI - Hypokalemia Supplement K - Hypertensive urgency Continue home antihypertensive medications Closely monitor blood pressure - Tobacco abuse Smoking cessation counseling done. Patient strongly advised to quit. - DVT prophylaxis Heparin Subjective Date of service: 07/17/17 Principal diagnosis: Acute HF, Accelerated HTN, Chest Pain, LBBB, COPD Interval history: Still having Shortness of breath on slight exertion Objective - Constitutional Vitals: Vital Signs - 12hr 07/17/17 07/17/17 07/17/17 00:00 03:41 08:00 Temperature 97.8 F 98.6 F Pulse Rate 78 66 Pulse Rate [ 70 Anterior Bilateral Throughout] Respiratory 18 15 Rate Respiratory 16 Rate [Anterior Bilateral Throughout] Blood Pressure 89/38 Blood Pressure 73/42 [Left] O2 Sat by Pulse 98 92 Oximetry 07/17/17 07/17/17 07/17/17 08:04 08:10 08:17 Temperature Pulse Rate Pulse Rate [ 72 Anterior Bilateral Throughout] Respiratory Rate Respiratory 16 Rate [Anterior Bilateral Throughout] Blood Pressure Blood Pressure [Left] O2 Sat by Pulse 96 96 Oximetry 07/17/17 10:40 Temperature Pulse Rate 61 Pulse Rate [ Anterior Bilateral Throughout] Respiratory Rate Respiratory Rate [Anterior Bilateral Throughout] Blood Pressure 109/53 Blood Pressure [Left] O2 Sat by Pulse Oximetry General appearance: Present: no acute distress, well-nourished - EENT Eyes: PERRL, EOM intact - Neck Neck: supple, normal ROM - Respiratory Respiratory effort: normal Respiratory: bilateral: CTA - Cardiovascular Rhythm: regular Heart Sounds: Present: S1 & S2. Absent: gallop, rub Extremities: pulses intact, No edema, normal color, Full ROM - Gastrointestinal General gastrointestinal: Present: soft, non-tender, non-distended, normal bowel sounds - Integumentary Integumentary: clear, warm, dry - Musculoskeletal Musculoskeletal: 1, strength equal bilaterally - Neurologic Neurologic: moves all extremities - Psychiatric Psychiatric: memory intact, appropriate mood/affect, intact judgment & insight - Labs CBC & Chem 7: 07/15/17 03:40 07/17/17 04:17 Labs: Abnormal lab results 07/17/17 Range/Units 04:17 Potassium 3.4 L (3.6-5.0) mmol/L Chloride 97.7 L (98-107) mmol/L BUN 45 H (7-17) mg/dL Glucose 145 H (65-100) mg/dL
[2017-07-17] MEDS ORDERED: KCL 20MEQ/100ML 20 MEQ/100 ML BAG IV ONE (11:04)
--- NOTE | 2017-07-17 13:56 | Progress Note ---
Assessment and Plan Administer intravenous normal saline. I have reduced doses of her cardiac medications with hold parameters. Schedule coronary angiography and obtain BMP in a.m. - Patient Problems (1) Acute systolic heart failure Current Visit: Yes Status: Resolved (2) Chest pain Current Visit: Yes Status: Acute (3) Abnormal stress test Current Visit: Yes Status: Acute (4) Accelerated hypertension Current Visit: Yes Status: Acute (5) Left bundle branch block Current Visit: Yes Status: Acute (6) COPD (chronic obstructive pulmonary disease) Current Visit: Yes Status: Chronic Qualifiers: COPD type: unspecified COPD Qualified Code(s): J44.9 - Chronic obstructive pulmonary disease, unspecified Subjective Date of service: 07/17/17 Principal diagnosis: Acute HF, Accelerated HTN, Chest Pain, LBBB, COPD Interval history: She feels better. We have discussed her abnormal stress test and the need for coronary angiography. She has agreed to proceed in the a.m. Meanwhile, her BP appears to have decreased during the night and this morning. Objective Vital Signs Temp Pulse Pulse Resp Resp BP BP 07/17/17 10:40 61 109/53 07/17/17 08:17 07/17/17 08:10 72 16 07/17/17 08:04 07/17/17 08:00 70 16 07/17/17 03:41 98.6 F 66 15 89/38 07/17/17 00:00 97.8 F 78 18 73/42 07/16/17 20:40 61 20 07/16/17 20:29 07/16/17 20:28 56 L 20 07/16/17 19:21 97.9 F 60 18 90/53 07/16/17 18:06 97.4 F L 73 18 92/55 07/16/17 15:31 88 Pulse Ox 07/17/17 10:40 07/17/17 08:17 96 07/17/17 08:10 07/17/17 08:04 96 07/17/17 08:00 07/17/17 03:41 92 07/17/17 00:00 98 07/16/17 20:40 07/16/17 20:29 98 07/16/17 20:28 07/16/17 19:21 94 07/16/17 18:06 96 07/16/17 15:31 - Physical Examination General: No Apparent Distress HEENT: Positive: PERRL, Normocephaly, Mucus Membranes Moist Neck: Positive: neck supple, trachea midline Cardiac: Positive: Reg Rate and Rhythm, S1/S2 Lungs: Positive: clear to auscultation Neuro: Positive: Grossly Intact Abdomen: Positive: Soft, Active Bowel Sounds. Negative: Tender Skin: Positive: Clear. Negative: Rash Musculoskeletal: Normal Range of Motion Extremities: Absent: edema - Labs and Meds Comprehensive Metabolic Panel 07/17/17 Range/Units 04:17 Sodium 143 (137-145) mmol/L Potassium 3.4 L (3.6-5.0) mmol/L Chloride 97.7 L (98-107) mmol/L Carbon Dioxide 27 (22-30) mmol/L BUN 45 H (7-17) mg/dL Creatinine 1.1 (0.7-1.2) mg/dL Glucose 145 H (65-100) mg/dL Calcium 8.7 (8.4-10.2) mg/dL - Imaging and Cardiology EKG: image reviewed Echo: image reviewed - EKG Sinus rhythms and dysrhythmias: sinus rhythm AV and intraventricular conduction: left bundle branch block
[2017-07-17] MEDS ORDERED: ZESTRIL PO SCH (13:58)
[2017-07-18] MEDS ORDERED: NACL 0.9% 500 ML 500 ML IV SCH
[2017-07-18] MEDS: DUONEB *Not for PRN Use IH SCH ×3 (02:30→13:42)
[2017-07-18 06:06] LABS: Hematocrit 40.3 % (30.3-42.9); Hemoglobin 13.4 gm/dl (10.1-14.3); Mean Corpuscular HGB Conc 33 % (30-34); Mean Corpuscular Hemoglobin 31 pg (28-32); Mean Corpuscular Volume 92 fl (79-97); Platelet Count 121 K/mm3 (140-440); Red Blood Count 4.41 M/mm3 (3.65-5.03); White Blood Count 9.3 K/mm3 (4.5-11.0)
[2017-07-18 06:17] LABS: INR 1.05 (0.87-1.13)
[2017-07-18 06:18] LABS: Partial Thromboplastin Time 23.5 Sec. (24.2-36.6)
[2017-07-18 06:26] LABS: Alanine Aminotransferase 17 units/L (7-56); Albumin 3.9 g/dL (3.9-5); Albumin/Globulin Ratio 1.6 %; Alkaline Phosphatase 54 units/L (35-129); Anion Gap 19 mmol/L; BUN/Creatinine Ratio 37; Blood Urea Nitrogen 33 mg/dL (7-17); Calcium 8.7 mg/dL (8.4-10.2); Carbon Dioxide 26 mmol/L (22-30); Chloride 103.2 mmol/L (98-107); Glucose 130 mg/dL (65-100); Sodium 144 mmol/L (137-145); Total Protein 6.3 g/dL (6.3-8.2)
[2017-07-18] MEDS: BROVANA NEBU IH SCH (08:46)
[2017-07-18] MEDS: PULMICORT IH SCH (08:47)
[2017-07-18] MEDS ORDERED: XYLOCAINE 2% INFILTRATI ONE (10:29)
[2017-07-18] MEDS ORDERED: HEPARIN/NS 5000 UNIT/500ML(CATH LAB) 1,000 ML IR ONE (10:29)
[2017-07-18] MEDS ORDERED: HEPARIN 10,000 UNITS/10 ML ONE (10:29)
[2017-07-18] MEDS ORDERED: CALAN ONE (10:29)
[2017-07-18] MEDS ORDERED: ECOTRIN PO ONE (10:30)
[2017-07-18] MEDS ORDERED: NITROGLYCERIN SYRINGE 3 ML ONE (10:30)
[2017-07-18] MEDS: SUBLIMAZE ONE ×3 (11:08→11:13)
[2017-07-18] MEDS: VERSED ONE ×3 (11:08→11:13)
--- NOTE | 2017-07-18 11:51 | Discharge Summary ---
Providers - Providers Date of Admission: 07/15/17 04:26 Date of discharge: 07/18/17 Attending physician: NA LAURENT 07/15/17 10:34 Consult to Physician [CONS] Routine Consulting Provider: JABARI CATES Reason For Exam: chf Place consult to:: [facility] Notified:: y Comment:: added to list Primary care physician: APPLICATIONS SCIENTIST Hospitalization Reason for admission: ACute respiratory failure Condition: Stable Pertinent studies: CXR, ECHO. Stress thallium, Procedures: Cardiac cath Hospital course: Pt is a 71 y/o lady who has a historyof COPD, Mi and current smoke presented wti the Ed on account of worsening shortness of breath. Had no fever. Was hy poxic. CXT showed pulm edema. Was commenced on bronchodilator in anibal Ed and iv antibiotic as well as solumedrol. Admitted to the floor. CTA of the chest showed no PE. Had chest pian for which Stress thallium test was done. Report was inconclusive. Cardiac carth was done. Cardiomyopathy with irregularity fo the caronary arteries identified. EF was 40-45%. Shortness of breath improved as well as chest pain. Counselled again on tobacco cessation. Discharged home on weaning steroid regimen. advised to f/u [facility] PCP in 3-5 days. Disposition: TO HOME OR SELFCARE Core Measure Documentation - Palliative Care Palliative Care/ Comfort Measures: Not Applicable - Core Measures Any of the following diagnoses?: heart failure - Heart Failure Discharge Requirements JUAN/ARB for LVSD if EF <40%: Yes Beta frederick at discharge: Yes Exam - Constitutional Vitals: Temp Pulse Resp BP Pulse Ox 97.8 F 88 16 159/91 96 07/18/17 08:51 07/18/17 08:54 07/18/17 08:54 07/18/17 08:51 07/18/17 08:53 General appearance: Present: no acute distress, well-nourished - EENT Eyes: Present: PERRL ENT: hearing intact, clear oral mucosa - Neck Neck: Present: supple, normal ROM - Respiratory Respiratory effort: normal Respiratory: bilateral: CTA - Cardiovascular Heart Sounds: Present: S1 & S2. Absent: rub, click - Extremities Extremities: pulses symmetrical, No edema Peripheral Pulses: within normal limits - Abdominal General gastrointestinal: Present: soft, non-tender, non-distended, normal bowel sounds Female genitourinary: Present: normal - Integumentary Integumentary: Present: clear, warm, dry - Musculoskeletal Musculoskeletal: gait normal, strength equal bilaterally - Psychiatric Psychiatric: appropriate mood/affect, intact judgment & insight - Neurologic Neurologic: CNII-XII intact, moves all extremities Plan Activity: advance as tolerated Diet: low fat, low cholesterol, low salt Special Instructions: record daily weights, record daily BP diary Follow up with: PRIMARY CARE, [Primary Care Provider] - 3-5 Days Forms: [facility] D/C Instructions Prescriptions: Carvedilol [Coreg] 6.25 mg PO QDAY #60 tablet Citalopram [Celexa] 20 mg PO QDAY #30 tablet Digoxin [Lanoxin] 0.25 mg PO DAILY #30 tablet Ipratropium/Albuterol Sulfate [DUONEB *Not for PRN Use*] 1 ampul IH Q6HRT 30 Days ampul.neb Lisinopril [Zestril TAB] 10 mg PO QDAY #30 tablet Lovastatin [Altoprev] 20 mg PO QPM #30 tab.er.24h Prednisone 10 mg PO BID #40 tablet Spironolactone [Aldactone] 25 mg PO QDAY #30 tablet
--- NOTE | 2017-07-18 11:55 | Progress Note ---
Assessment and Plan s/p [facility] this AM which revealed patent coronaries, EF 40-45%. Currently stable cardiac status. Cont present cardiac regimen. Pt may discharge home this afternoon following completion of post-cath order set. Follow up in our [place] office with Dr. Moss on 07/22/2017 @ 3:30PM. The patient has been seen in conjunction with Dr. Roblse who agrees with the assessment and plan of care. - Patient Problems (1) Acute systolic heart failure Current Visit: Yes Status: Resolved (2) Chest pain Current Visit: Yes Status: Resolved (3) Abnormal stress test Current Visit: Yes Status: Acute (4) Accelerated hypertension Current Visit: Yes Status: Acute (5) Left bundle branch block Current Visit: Yes Status: Acute (6) COPD (chronic obstructive pulmonary disease) Current Visit: Yes Status: Chronic Qualifiers: COPD type: unspecified COPD Qualified Code(s): J44.9 - Chronic obstructive pulmonary disease, unspecified Subjective Date of service: 07/18/17 Principal diagnosis: Acute HF, Accelerated HTN, Chest Pain, LBBB, COPD Interval history: pt for [facility] today, no current complaints. Objective Last Vital Signs Temp 97.8 F 07/18/17 08:51 Pulse 75 07/18/17 11:51 Resp 16 07/18/17 08:54 BP 159/91 07/18/17 08:51 Pulse Ox 96 07/18/17 08:53 - Physical Examination General: No Apparent Distress HEENT: Positive: PERRL, Normocephaly, Mucus Membranes Moist Neck: Positive: neck supple, trachea midline Cardiac: Positive: Reg Rate and Rhythm, S1/S2 Lungs: Positive: Decreased Breath Sounds Neuro: Positive: Grossly Intact Abdomen: Positive: Soft, Active Bowel Sounds. Negative: Tender Skin: Positive: Clear. Negative: Rash Musculoskeletal: Normal Range of Motion Extremities: Absent: edema - Labs and Meds Cardiac Enzymes 07/18/17 Range/Units 04:36 AST 15 (5-40) units/L Coagulation 07/18/17 Range/Units 04:36 PT 14.2 (12.2-14.9) Sec. INR 1.05 (0.87-1.13) APTT 23.5 L (24.2-36.6) Sec. CBC 07/18/17 Range/Units 04:36 WBC 9.3 (4.5-11.0) K/mm3 RBC 4.41 (3.65-5.03) M/mm3 Hgb 13.4 (10.1-14.3) gm/dl Hct 40.3 (30.3-42.9) % Plt Count 121 L (140-440) K/mm3 Comprehensive Metabolic Panel 07/18/17 Range/Units 04:36 Sodium 144 (137-145) mmol/L Potassium 4.0 (3.6-5.0) mmol/L Chloride 103.2 (98-107) mmol/L Carbon Dioxide 26 (22-30) mmol/L BUN 33 H (7-17) mg/dL Creatinine 0.9 (0.7-1.2) mg/dL Glucose 130 H (65-100) mg/dL Calcium 8.7 (8.4-10.2) mg/dL AST 15 (5-40) units/L ALT 17 (7-56) units/L Alkaline Phosphatase 54 (35-129) units/L Total Protein 6.3 (6.3-8.2) g/dL Albumin 3.9 (3.9-5) g/dL - Imaging and Cardiology EKG: image reviewed Echo: image reviewed - EKG Sinus rhythms and dysrhythmias: sinus rhythm AV and intraventricular conduction: left bundle branch block
--- NOTE | 2017-07-18 12:09 | Cardiac Catherization Report ---
CARDIAC CATHETERIZATION REPORT INDICATION FOR PROCEDURE: The patient is a 71-year-old female with history of hypertension, chronic obstructive pulmonary disease, smoking, congestive heart failure presently admitted with shortness of breath. She was noted to have abnormal nuclear imaging. Hence, she was scheduled for cardiac catheterization for definitive diagnosis and treatment. The patient is aware of the procedure, potential complications, and alternatives of therapy available. DESCRIPTION OF PROCEDURE: The patient was brought to the catheterization laboratory in a fasting condition. The right wrist area and forearm were thoroughly cleansed with Betadine solution and sterile drapes were applied. Local anesthesia was achieved using 2% Xylocaine. Right radial artery puncture was made using 21-gauge arterial puncture needle. Subsequently, a 5-Belarusian slender sheath was introduced. The patient received 3000 units of intravenous heparin and 5 mg of intra-arterial verapamil. Using 5-Belarusian multipurpose catheter, angiograms of the left coronary artery were obtained in multiple views followed by angiograms of the right coronary artery and left ventriculogram was done in MYRICK projection using hand injection. At the end of the procedure, catheter and sheath were removed. Good hemostasis was achieved. The following findings were noted: HEMODYNAMICS: 1. Opening aortic pressure 175/64, left ventricular pressure 191/26. No gradient across the aortic valve. Estimated ejection fraction of 40-45%, 2. Left ventriculogram done in MYRICK projection using hand injection showed mildly dilated left ventricle with [id number] diffuse hypokinesis with ejection fraction of 40-45%. 3. Right coronary artery, a nondominant vessel, arises normally from right coronary cusp, angiographically smooth and normal. 4. Left coronary artery arises normally from left coronary cusp. Left main is very short, immediately dividing into LAD, ramus, and circumflex branches. 5. Circumflex artery is dominant vessel and shows very mild smooth irregularities in the mid part. LAD curves around the apex. LAD and its branches are angiographically smooth and normal. Medium sized ramus without significant disease. FINAL IMPRESSION: 1. Mildly dilated left ventricle with diffuse hypokinesis, ejection fraction of 40-45%. Mitral regurgitation could not be evaluated because of limited amount of dye injected. 2. Minimal coronary irregularities noted with left system being dominant. At this time, the patient's problem appears to be dilated cardiomyopathy. We will continue with risk factor modification and medical therapy. Procedure was uncomplicated. Findings were explained to the patient and she understands. JOB# [id number] MICHELLE/NTS
[2017-07-18] MEDS: celeXA PO SCH (12:26)
[2017-07-18] MEDS: ZESTRIL PO SCH (12:26)
[2017-07-18] MEDS: COREG PO SCH (12:26)
[2017-07-18] MEDS: AUGMENTIN 875 MG PO SCH (12:26)
[2017-07-18 16:47] VITALS: BP 84/59
== END 2017-07-18 18:19 | disposition home or self-care (01) | DRG 286 ==
LOC: ED 02:46 → 4A 04:26
PROVIDERS: ADMIT Internal Medicine; ATTEND Family Medicine
PROC: 4A023N7 Measurement of Cardiac Sampling and Pressure, Left Heart, Percutaneous Approach (ICD-10-PCS; principal; 2017-07-15)
PROC: B2111ZZ Fluoroscopy of Multiple Coronary Arteries using Low Osmolar Contrast (ICD-10-PCS; 2017-07-15)
PROC: B2151ZZ Fluoroscopy of Left Heart using Low Osmolar Contrast (ICD-10-PCS; 2017-07-15)
DX: I11.0 Hypertensive heart disease with heart failure (principal); J96.01 Acute respiratory failure with hypoxia; J44.1 Chronic obstructive pulmonary disease with (acute) exacerbation; I50.23 Acute on chronic systolic (congestive) heart failure; I42.0 Dilated cardiomyopathy; R73.9 Hyperglycemia, unspecified; E87.6 Hypokalemia; I16.0 Hypertensive urgency; I44.7 Left bundle-branch block, unspecified; F17.210 Nicotine dependence, cigarettes, uncomplicated; I25.2 Old myocardial infarction; Z82.49 Family history of ischemic heart disease and other diseases of the circulatory system; Z71.6 Tobacco abuse counseling
CPT/HCPCS: 36415; 71020; 71275; 78452; 80048; 80053; 80074; 82550; 82553; 82962; 83036; 83735; 83880; 84484; 85025; 85027; 85379; 85610; 85730; 93005; 93010; 93017; 93306; 93458; 93970; 94640; 94760; 96365; 96375; 99406; A9502; C1894; J0360; J1100; J1644; J1940; J1956; J2250; J2785; J2920; J2930; J3010; J7040; Q9967

== ENCOUNTER 2017-08-06 03:45 | Inpatient (IN) | payer MEDICARE ==
[2017-08-06] MEDS ORDERED: CARDIZEM/D5W 100MG/100ML 100 MG/100 ML BAG IV ONE ×2 (04:06→04:09)
[2017-08-06] MEDS ORDERED: CARDIZEM ONE (04:07)
[2017-08-06] MEDS ORDERED: CARDIZEM IV ONE ×2 (04:08→04:11)
[2017-08-06] MEDS ORDERED: NITRO-BID 2% TP ONE (04:10)
[2017-08-06] MEDS ORDERED: CARDIZEM/D5W 100MG/100ML 100 MG/100 ML BAG IV SCH (05:00)
[2017-08-06 05:21] LABS: Basophils % (Auto) 0.1 % (0.0-1.8); Eosinophils % (Auto) 0.2 % (0.0-4.3); Hematocrit 37.7 % (30.3-42.9); Hemoglobin 12.7 gm/dl (10.1-14.3); Lymphocytes # (Auto) 1.2 K/mm3 (1.2-5.4); Lymphocytes % (Auto) 13.6 % (13.4-35.0); Mean Corpuscular HGB Conc 34 % (30-34); Mean Corpuscular Hemoglobin 31 pg (28-32); Mean Corpuscular Volume 92 fl (79-97); Monocytes # (Auto) 0.8 K/mm3 (0.0-0.8); Monocytes % (Auto) 9.8 % (0.0-7.3); Platelet Count 168 K/mm3 (140-440); Red Blood Count 4.08 M/mm3 (3.65-5.03); Red Cell Distribution Width 13.9 % (13.2-15.2)
[2017-08-06 05:57] LABS: Albumin 3.6 g/dL (3.9-5); Calcium 8.5 mg/dL (8.4-10.2)
--- NOTE | 2017-08-06 05:58 | XRay Report ---
FINAL REPORT EXAM: XR CHEST 1V AP HISTORY: SHORT OF BREATH TECHNIQUE: AP portable view(s) of the chest obtained. PRIORS: 07/15/2017 FINDINGS: No mediastinal shift. Cardiac silhouette is not enlarged. Right middle lobe and lingular opacity silhouettes the right and left heart border, respectively. No definite effusion or pneumothorax. Mild hyperaeration of the lungs and flattening of the hemidiaphragms. No acute skeletal finding. IMPRESSION: Right middle lobe and lingular airspace disease is superimposed on sequela of COPD. No pneumothorax or definite effusion. PA and lateral chest radiographic follow-up to resolution is suggested.
[2017-08-06] MEDS ORDERED: NITRO-BID 2% TP SCH (06:00)
--- NOTE | 2017-08-06 06:22 | Emergency Department Report ---
ED Shortness of Breath HPI - General Chief Complaint: Dyspnea/Respdistress Stated Complaint: PIERO Time Seen by Provider: 08/06/17 04:04 Source: patient Mode of arrival: Ambulatory Limitations: No Limitations - History of Present Illness Initial Comments: 71 YO FEMALE C/O ACUTE DYSPNEA AND IN RESPIRATORY DISTRESS SHE HAS BEEN SHORT OF BREATH FOR ONE WEEK. SHE HAS A H/O CHF, A-FIB,COPD , [place],HTN,PNEUMONIA, BREAST SURGERY, CONTINUES TO SMOKE. BROUGHT IN BY EMS I AFIB WITH RVR HR 124 . MD Complaint: shortness of breath -: Gradual, week(s) (1) Pain Scale: 4 Quality: aching Consistency: constant Improves With: nothing Known History Of: COPD, congestive heart failure Context: other (SEE ABOVE, SMOKER) Associated Symptoms: chest pain Treatments Prior to Arrival: oxygen - Related Data Previous Rx's Medication Instructions Recorded Last Taken Type Carvedilol [Coreg] 6.25 mg PO QDAY #60 tablet 07/18/17 Unknown Rx Citalopram [Celexa] 20 mg PO QDAY #30 tablet 07/18/17 Unknown Rx Digoxin [Lanoxin] 0.25 mg PO DAILY #30 tablet 07/18/17 Unknown Rx Ipratropium/Albuterol Sulfate 1 ampul IH Q6HRT 30 Days ampul.neb 07/18/17 Unknown Rx [DUONEB *Not for PRN Use*] Lisinopril [Zestril TAB] 10 mg PO QDAY #30 tablet 07/18/17 Unknown Rx Lovastatin [Altoprev] 20 mg PO QPM #30 tab.er.24h 07/18/17 Unknown Rx Prednisone 10 mg PO BID #40 tablet 07/18/17 Unknown Rx Spironolactone [Aldactone] 25 mg PO QDAY #30 tablet 07/18/17 Unknown Rx Allergies Allergy/AdvReac Type Severity Reaction Status Date / Time No Known Allergies Allergy Verified 08/06/17 04:08 ED Review of Systems ROS: Stated complaint: PIERO Other details as noted in HPI Constitutional: denies: chills, fever Eyes: denies: eye pain, eye discharge, vision change ENT: denies: ear pain, throat pain Respiratory: denies: cough, shortness of breath, wheezing Cardiovascular: chest pain. denies: palpitations Endocrine: no symptoms reported Gastrointestinal: denies: abdominal pain, nausea, diarrhea Genitourinary: denies: urgency, dysuria, discharge Musculoskeletal: denies: back pain, joint swelling, arthralgia Skin: denies: rash, lesions Neurological: denies: headache, weakness, paresthesias Psychiatric: denies: anxiety, depression Hematological/Lymphatic: denies: easy bleeding, easy bruising ED Past Medical Hx - Past Medical History Hx Hypertension: Yes Hx Heart Attack/AMI: Yes Hx Congestive Heart Failure: Yes Additional medical history: pneumonia - Surgical History Additional Surgical History: breast surgery - Social History Smoking Status: Former Smoker - Medications Home Medications: Home Medications Medication Instructions Recorded Confirmed Last Taken Type Carvedilol [Coreg] 6.25 mg PO QDAY #60 tablet 07/18/17 Unknown Rx Citalopram [Celexa] 20 mg PO QDAY #30 tablet 07/18/17 Unknown Rx Digoxin [Lanoxin] 0.25 mg PO DAILY #30 tablet 07/18/17 Unknown Rx Ipratropium/Albuterol Sulfate 1 ampul IH Q6HRT 30 Days ampul.neb 07/18/17 Unknown Rx [DUONEB *Not for PRN Use*] Lisinopril [Zestril TAB] 10 mg PO QDAY #30 tablet 07/18/17 Unknown Rx Lovastatin [Altoprev] 20 mg PO QPM #30 tab.er.24h 07/18/17 Unknown Rx Prednisone 10 mg PO BID #40 tablet 07/18/17 Unknown Rx Spironolactone [Aldactone] 25 mg PO QDAY #30 tablet 07/18/17 Unknown Rx ED Physical Exam - General Limitations: No Limitations General appearance: alert, in no apparent distress - Head Head exam: Present: atraumatic, normocephalic - Eye Eye exam: Present: normal appearance, EOMI - ENT ENT exam: Present: mucous membranes moist - Neck Neck exam: Present: normal inspection, full ROM - Respiratory Respiratory exam: Present: normal lung sounds bilaterally. Absent: respiratory distress, wheezes, rales - Cardiovascular Cardiovascular Exam: Present: tachycardia, irregular rhythm. Absent: systolic murmur, diastolic murmur, rubs, gallop - GI/Abdominal GI/Abdominal exam: Present: soft, normal bowel sounds. Absent: distended, tenderness, guarding - Rectal Rectal exam: Present: deferred - Extremities Exam Extremities exam: Present: normal inspection, full ROM - Back Exam Back exam: Present: normal inspection, full ROM - Neurological Exam Neurological exam: Present: alert, oriented X3, CN II-XII intact - Psychiatric Psychiatric exam: Present: normal affect, normal mood - Skin Skin exam: Present: warm, dry, intact, normal color. Absent: rash ED Course Vital Signs 08/06/17 08/06/17 08/06/17 01:28 01:30 01:45 Temperature Pulse Rate 95 H 96 H 94 H Respiratory 15 15 15 Rate Blood Pressure 114/78 O2 Sat by Pulse 98 98 100 Oximetry 08/06/17 08/06/17 08/06/17 03:50 04:01 04:04 Temperature 99.0 F Pulse Rate 122 H 124 H Respiratory 27 H 30 H Rate Blood Pressure 114/78 133/88 86/62 O2 Sat by Pulse 91 98 96 Oximetry 08/06/17 08/06/17 08/06/17 04:18 04:25 04:31 Temperature Pulse Rate 91 H 99 H 94 H Respiratory 33 H 24 28 H Rate Blood Pressure 72/49 72/49 O2 Sat by Pulse 97 99 100 Oximetry 08/06/17 08/06/17 08/06/17 04:45 05:01 05:15 Temperature Pulse Rate 95 H 96 H 99 H Respiratory 32 H 25 H 24 Rate Blood Pressure 101/75 123/90 123/90 O2 Sat by Pulse 97 99 97 Oximetry 08/06/17 08/06/17 08/06/17 05:31 05:45 06:00 Temperature Pulse Rate 100 H 103 H Respiratory 25 H 25 H Rate Blood Pressure 123/68 123/68 149/101 O2 Sat by Pulse 98 98 99 Oximetry 08/06/17 08/06/17 08/06/17 06:15 06:30 06:45 Temperature Pulse Rate 101 H 95 H 85 Respiratory 21 13 26 H Rate Blood Pressure 149/101 137/81 137/81 O2 Sat by Pulse 99 98 98 Oximetry 08/06/17 07:02 Temperature Pulse Rate Respiratory 30 H Rate Blood Pressure O2 Sat by Pulse 97 Oximetry - Reevaluation(s) Reevaluation #1: 08/06/17 06:34 PT IS STILL ON CARDIZEM DRIP AND HEART RATE IS 99, SHE IS ALSO STILLON BIPAP AND DOING WELL. SHE IS NO LONGER HYPOTENSIVE ED Medical Decision Making - Lab Data Result diagrams: 08/06/17 Unknown 08/06/17 Unknown - EKG Data -: EKG Interpreted by Me - EKG Data Interpretation: LVH (WITH STRAIN , HR 124, IRREGULAR RHYTHM, A. FIB WITH RVR) - Radiology Data Radiology results: report reviewed, image reviewed (CXR: RIGHT MIDDLE AND LEFT LINGULA OPACIFICATION) Critical Care Time: Yes Critical care time in (mins) excluding proc time.: 60 Critical care attestation.: If time is entered above; I have spent that time in minutes in the direct care of this critically ill patient, excluding procedure time. SARTHAK-ALEX Critical Care Time: 60MIN ED Disposition Clinical Impression: Atrial fibrillation with RVR, Acute dyspnea CHF (congestive heart failure) Qualifiers: Congestive heart failure type: unspecified congestive heart failure type Congestive heart failure chronicity: acute Qualified Code(s): I50.9 - Heart failure, unspecified Pneumonia Qualifiers: Aspiration pneumonia type: unspecified Laterality: bilateral Lung location: unspecified part of lung Disposition: DC-09 OP ADMIT IP TO THIS HOSP Is pt being admited?: Yes Does the pt Need Aspirin: No Condition: Stable Instructions: Bacterial Pneumonia (ED) Referrals: HAILEY BUENROSTRO MD [Primary Care Provider] - 3-5 Days Time of Disposition: 06:26 (DR ROHINI BARNETT AND SHE WILL HAVE THE 7AM HOSPITALIST ADMIT THE PT.)
[2017-08-06] MEDS ORDERED: ZITHROMAX 500 MG in NACL 0.9% 250ML 250 ML IV ONE (06:31)
[2017-08-06] MEDS ORDERED: TYLENOL PO ONE (06:33)
[2017-08-06] MEDS ORDERED: ROCEPHIN 1,000 MG in NACL 0.9% 50 ML IV NR (07:00)
[2017-08-06] MEDS ORDERED: ROCEPHIN 1 GM in NACL 0.9% 20 ML IV ONE (08:00)
--- NOTE | 2017-08-06 09:38 | History and Physical Report ---
History of Present Illness Date of examination: 08/06/17 Date of admission: 08/06/17 Chief complaint: sob History of present illness: This is a 71-year-old female with past medical history of atrial fibrillation, COPD, CHF, [place], hypertension and breast surgery who presents with complaints of progressively worsening dyspnea for 1 week. Upon arrival to the emergency room , patient was noted to have atrial fibrillation with RVR. Patient was recently admitted here earlier this month with diagnosis of acute respiratory failure secondary to acute on chronic CHF and COPD exacerbation. During that hospitalization, patient was noted to have a CTA that showed no PE and a stress thallium that was reportedly inconclusive. Therefore, patient underwent cardiac catheterization which revealed Cardiomyopathy with irregularity to the caronary arteries identified. EF was 40-45%. Patient denies any chest pain. No nausea or vomiting. Patient reports a cough with no sputum production. No headache or visual disturbances. No fever or chills. Patient is currently on BiPAP. Past History Past Medical History: atrial fib, COPD, heart failure, hypertension Past Surgical History: No surgical history Social history: smoking Family history: no significant family history Medications and Allergies Allergies Allergy/AdvReac Type Severity Reaction Status Date / Time No Known Allergies Allergy Verified 08/06/17 04:08 Home Medications Medication Instructions Recorded Confirmed Last Taken Type Carvedilol [Coreg] 6.25 mg PO QDAY #60 tablet 07/18/17 Unknown Rx Citalopram [Celexa] 20 mg PO QDAY #30 tablet 07/18/17 Unknown Rx Digoxin [Lanoxin] 0.25 mg PO DAILY #30 tablet 07/18/17 Unknown Rx Ipratropium/Albuterol Sulfate 1 ampul IH Q6HRT 30 Days ampul.neb 07/18/17 Unknown Rx [DUONEB *Not for PRN Use*] Lisinopril [Zestril TAB] 10 mg PO QDAY #30 tablet 07/18/17 Unknown Rx Lovastatin [Altoprev] 20 mg PO QPM #30 tab.er.24h 07/18/17 Unknown Rx Prednisone 10 mg PO BID #40 tablet 07/18/17 Unknown Rx Spironolactone [Aldactone] 25 mg PO QDAY #30 tablet 07/18/17 Unknown Rx Active Meds: Active Medications Diltiazem HCl (Cardizem/D5w 100mg/100ml) 100 mg in 100 mls @ 5 mls/hr IV TITR ONE; 5 MG/HR PRN Reason: Protocol Stop: 08/07/17 00:08 Last Admin: 08/06/17 04:20 Dose: 5 mg/hr, 5 mls/hr Review of Systems All systems: negative Exam - Constitutional Vitals: Temp Pulse Resp BP Pulse Ox 99.0 F 94 H 27 H 108/70 98 08/06/17 04:04 08/06/17 07:15 08/06/17 07:15 08/06/17 07:15 08/06/17 07:15 General appearance: Present: no acute distress, well-nourished, other (on BiPAP) - EENT Eyes: Present: PERRL ENT: hearing intact, clear oral mucosa - Neck Neck: Present: supple, normal ROM - Respiratory Respiratory effort: normal Respiratory: bilateral: diminished, rales, rhonchi - Cardiovascular Heart Sounds: Present: S1 & S2. Absent: rub, click - Extremities Extremities: pulses symmetrical, No edema Peripheral Pulses: within normal limits - Abdominal General gastrointestinal: Present: soft, non-tender, non-distended, normal bowel sounds Female genitourinary: Present: normal - Integumentary Integumentary: Present: clear, warm, dry - Musculoskeletal Musculoskeletal: gait normal, strength equal bilaterally - Psychiatric Psychiatric: appropriate mood/affect, intact judgment & insight - Neurologic Neurologic: CNII-XII intact, moves all extremities Results - Labs CBC & Chem 7: 08/06/17 Unknown 08/06/17 Unknown Labs: Laboratory Last Values WBC 8.6 K/mm3 (4.5-11.0) 08/06/17 Unknown RBC 4.08 M/mm3 (3.65-5.03) 08/06/17 Unknown Hgb 12.7 gm/dl (10.1-14.3) 08/06/17 Unknown Hct 37.7 % (30.3-42.9) 08/06/17 Unknown MCV 92 fl (79-97) 08/06/17 Unknown MCH 31 pg (28-32) 08/06/17 Unknown MCHC 34 % (30-34) 08/06/17 Unknown RDW 13.9 % (13.2-15.2) 08/06/17 Unknown Plt Count 168 K/mm3 (140-440) 08/06/17 Unknown Lymph % (Auto) 13.6 % (13.4-35.0) 08/06/17 Unknown Cuming % (Auto) 9.8 % (0.0-7.3) H 08/06/17 Unknown Eos % (Auto) 0.2 % (0.0-4.3) 08/06/17 Unknown Baso % (Auto) 0.1 % (0.0-1.8) 08/06/17 Unknown Lymph # 1.2 K/mm3 (1.2-5.4) 08/06/17 Unknown Cuming # 0.8 K/mm3 (0.0-0.8) 08/06/17 Unknown Eos # 0.0 K/mm3 (0.0-0.4) 08/06/17 Unknown Baso # 0.0 K/mm3 (0.0-0.1) 08/06/17 Unknown Seg Neutrophils % 76.3 % (40.0-70.0) H 08/06/17 Unknown Seg Neutrophils # 6.5 K/mm3 (1.8-7.7) 08/06/17 Unknown Sodium 139 mmol/L (137-145) 08/06/17 Unknown Potassium 4.8 mmol/L (3.6-5.0) 08/06/17 Unknown Chloride 99.6 mmol/L (98-107) 08/06/17 Unknown Carbon Dioxide 23 mmol/L (22-30) 08/06/17 Unknown Anion Gap 21 mmol/L 08/06/17 Unknown BUN 22 mg/dL (7-17) H 08/06/17 Unknown Creatinine 1.0 mg/dL (0.7-1.2) 08/06/17 Unknown Estimated GFR 55 ml/min 08/06/17 Unknown BUN/Creatinine Ratio 22 % 08/06/17 Unknown Glucose 146 mg/dL (65-100) H 08/06/17 Unknown Lactic Acid 1.00 mmol/L (0.7-2.0) 08/06/17 06:48 Calcium 8.5 mg/dL (8.4-10.2) 08/06/17 Unknown Total Bilirubin 0.70 mg/dL (0.1-1.2) 08/06/17 Unknown AST 25 units/L (5-40) 08/06/17 Unknown ALT 34 units/L (7-56) 08/06/17 Unknown Alkaline Phosphatase 110 units/L (35-129) 08/06/17 Unknown Total Creatine Kinase 82 units/L (30-135) 08/06/17 Unknown CK-MB (CK-2) 5.0 ng/mL (0.0-4.0) H 08/06/17 Unknown CK-MB (CK-2) Rel Index 6.0 (0-4) H 08/06/17 Unknown Troponin T 0.024 ng/mL (0.00-0.029) 08/06/17 Unknown NT-Pro-B Natriuret Pep 55198 pg/mL (0-900) H 08/06/17 Unknown Total Protein 6.3 g/dL (6.3-8.2) 08/06/17 Unknown Albumin 3.6 g/dL (3.9-5) L 08/06/17 Unknown Albumin/Globulin Ratio 1.3 % 08/06/17 Unknown Plasma/Serum Alcohol < 0.01 gm% (0-0.07) 08/06/17 Unknown Assessment and Plan Assessment and plan: Acute respiratory failure with hypoxia Continue BiPAP for now. Wean as tolerated. Aggressive Nebulizers/Inhalers ABG when necessary Oxygen supplement Supportive care Acute on chronic combined systolic and diastolic heart failure Recent echocardiogram revealed EF of 40-45% with mild hypokinesis. Continue Diuresis, beta blockers and ACEI/ARB Strict I&O's and daily weights Low-sodium/cardiac diet/fluid restriction Closely monitor electrolytes Cardiology consultation Acute COPD exacerbation Continue on Duoneb every 6 hours Started IV steroid Solumedrol Initiated empiric IV Rocephin and azithromycin Oxygen as necessary A. fib with RVR. Continue Cardizem drip. Transition to by mouth Cardizem. Check TSH. Hypertension Continue home antihypertensive medications Closely monitor blood pressure Tobacco abuse Smoking cessation counseling done. Patient strongly advised to quit. DVT prophylaxis Lovenox
[2017-08-06] MEDS ORDERED: ALUM-MAG HYDROX-SIMETH 200-200-20MG/5ML PO PRN (09:45)
[2017-08-06] MEDS ORDERED: MILK OF MAGNESIA PO PRN (09:45)
[2017-08-06] MEDS ORDERED: ALDACTONE PO SCH (10:00)
[2017-08-06] MEDS ORDERED: DULCOLAX PR PRN (10:00)
[2017-08-06] MEDS: ZESTRIL PO SCH (10:51)
[2017-08-06] MEDS: LOVENOX SUB-Q SCH (11:00)
[2017-08-06] MEDS: celeXA PO SCH (11:02)
[2017-08-06] MEDS: COREG PO SCH (11:02)
[2017-08-06] MEDS: LASIX IV SCH (11:03)
[2017-08-06 11:19] LABS: Bacteria,Urine 2+ /HPF (Negative); Bilirubin,Urine NEG (Negative); Blood,Urine LG (Negative); Color,Urine Yellow (Yellow); Hyaline Casts,Urine 1 /LPF; Mucus,Urine FEW /HPF; Nitrite,Urine NEG (Negative)
[2017-08-06 11:21] LABS: Amphetamine Screen,Urine PRESUMPTIVE NEGATIVE; Benzodiazepines Screen,Urine PRESUMPTIVE NEGATIVE; Cocaine Screen,Urine PRESUMPTIVE NEGATIVE; Methadone Screen,Urine PRESUMPTIVE NEGATIVE; Opiate Screen,Urine PRESUMPTIVE NEGATIVE
[2017-08-06 11:36] LABS: Cannabinoid Screen,Urine PRESUMPTIVE POSITIVE
[2017-08-06] MEDS: DUONEB *Not for PRN Use IH SCH ×2 (14:16→20:00)
--- NOTE | 2017-08-06 16:16 | Event Note ---
Date: 08/06/17 Cardiology consult dictated #1 atrial fibrillation with rapid ventricular response on Cardizem intravenously. #2 history of congestive heart failure systolic Patient has been having difficulty in breathing for about a week and currently admitted with atrial fibrillation with rapid ventricular response. Recently she underwent cardiac catheterization which showed normal coronary anatomy with ejection fraction of 40-45%. Patient will need anticoagulation and rate control. Patient will be monitored closely with you. We may need to use digoxin in view of her low blood pressure to control the rate. Thank you for me to participate in the care of this pleasant lad Dr. Benjamin
--- NOTE | 2017-08-06 16:20 | Consultation ---
History of Present Illness Consult date: 08/06/17 Requesting physician: ARLEN VEGA Reason for consult: other (Atrial Fibrillation with RVR; Shortness of Breath) History of present illness: PULMONARY/CCM CONSULT NOTE (Full dictation # [id number]) Please see dictated notes for full details Past History Past Medical History: atrial fib, COPD, heart failure, hypertension Past Surgical History: No surgical history Social history: smoking Family history: no significant family history Medications and Allergies Allergies Allergy/AdvReac Type Severity Reaction Status Date / Time No Known Allergies Allergy Verified 08/06/17 04:08 Home Medications Medication Instructions Recorded Confirmed Last Taken Type Carvedilol [Coreg] 6.25 mg PO QDAY #60 tablet 07/18/17 Unknown Rx Citalopram [Celexa] 20 mg PO QDAY #30 tablet 07/18/17 Unknown Rx Digoxin [Lanoxin] 0.25 mg PO DAILY #30 tablet 07/18/17 Unknown Rx Ipratropium/Albuterol Sulfate 1 ampul IH Q6HRT 30 Days ampul.neb 07/18/17 Unknown Rx [DUONEB *Not for PRN Use*] Lisinopril [Zestril TAB] 10 mg PO QDAY #30 tablet 07/18/17 Unknown Rx Lovastatin [Altoprev] 20 mg PO QPM #30 tab.er.24h 07/18/17 Unknown Rx Prednisone 10 mg PO BID #40 tablet 07/18/17 Unknown Rx Spironolactone [Aldactone] 25 mg PO QDAY #30 tablet 07/18/17 Unknown Rx Active Meds: Active Medications Al Hydrox/Mg Hydrox/Simethicone (Alum-Mag Hydrox-Simeth [id number]/5ml) 30 ml PO Q4H PRN PRN Reason: Indigestion Albuterol/Ipratropium (Duoneb *Not For Prn Use*) 1 ampul IH Q6HRT [facility] Last Admin: 08/06/17 14:16 Dose: 1 ampul Bisacodyl (Dulcolax) 10 mg ND QDAY PRN PRN Reason: constipation unrelieved by MOM Carvedilol (Coreg) 6.25 mg PO QDAY [facility] Last Admin: 08/06/17 11:02 Dose: 6.25 mg Citalopram Hydrobromide (Celexa) 20 mg PO QDAY [facility] Last Admin: 08/06/17 11:02 Dose: 20 mg Enoxaparin Sodium (Lovenox) 40 mg SUB-Q QDAY [facility] Last Admin: 08/06/17 11:00 Dose: 40 mg Furosemide (Lasix) 40 mg IV QDAY [facility] Last Admin: 08/06/17 11:03 Dose: 40 mg Diltiazem HCl (Cardizem/D5w 100mg/100ml) 100 mg in 100 mls @ 5 mls/hr IV TITR ONE; 5 MG/HR PRN Reason: Protocol Stop: 08/07/17 00:08 Last Titration: 08/06/17 11:02 Dose: 3.5 mg/hr, 3.5 mls/hr Azithromycin 500 mg/ Sodium (Chloride) 250 mls @ 250 mls/hr IV Q24HR [facility] Ceftriaxone Sodium 1 gm/ (Sodium Chloride) 20 mls @ 20 mls/10 min IV Q24HR [facility] PRN Reason: Protocol Lisinopril (Zestril) 10 mg PO QDAY [facility] Last Admin: 08/06/17 10:51 Dose: 10 mg Magnesium Hydroxide (Milk Of Magnesia) 30 ml PO Q4H PRN PRN Reason: Constipation Methylprednisolone Sodium Succinate (Solu-Medrol) 40 mg IV Q8H [facility] Last Admin: 08/06/17 10:46 Dose: 40 mg Miscellaneous Medication (Lovastatin [Altoprev]) 20 mg PO QPM [facility] Physical Examination Vital signs: Vital Signs Pulse Resp Pulse Ox 95 H 15 98 08/06/17 01:28 08/06/17 01:28 08/06/17 01:28 Results - Laboratory Findings CBC and BMP: 08/07/17 05:03 08/07/17 05:03 Abnormal lab findings: Abnormal Labs 08/06/17 08/06/17 08/06/17 10:13 Unknown Unknown [place] % (Auto) 9.8 H Seg Neutrophils % 76.3 H BUN 22 H Glucose 146 H CK-MB (CK-2) 5.0 H CK-MB (CK-2) Rel Index 6.0 H NT-Pro-B Natriuret Pep Albumin 3.6 L Urine WBC (Auto) 14.0 H 08/06/17 Unknown [place] % (Auto) Seg Neutrophils % BUN Glucose CK-MB (CK-2) CK-MB (CK-2) Rel Index NT-Pro-B Natriuret Pep 46217 H Albumin Urine WBC (Auto)
[2017-08-06] MEDS ORDERED: NON-FORMULARY (Lovastatin [Altoprev] 20 MG) PO SCH (18:00)
[2017-08-06] MEDS ORDERED: CARDIZEM PO ONE (23:15)
[2017-08-07] MEDS: DUONEB *Not for PRN Use IH SCH ×4 (01:11→20:53)
[2017-08-07 06:15] LABS: Basophils % (Auto) 0.2 % (0.0-1.8); Hematocrit 33.7 % (30.3-42.9); Hemoglobin 11.5 gm/dl (10.1-14.3); Lymphocytes # (Auto) 0.4 K/mm3 (1.2-5.4); Lymphocytes % (Auto) 11.9 % (13.4-35.0); Mean Corpuscular HGB Conc 34 % (30-34); Mean Corpuscular Hemoglobin 31 pg (28-32); Mean Corpuscular Volume 91 fl (79-97); Monocytes # (Auto) 0.1 K/mm3 (0.0-0.8); Monocytes % (Auto) 3.3 % (0.0-7.3); Platelet Count 164 K/mm3 (140-440); Red Blood Count 3.71 M/mm3 (3.65-5.03); Red Cell Distribution Width 14.2 % (13.2-15.2)
[2017-08-07 06:22] LABS: BUN/Creatinine Ratio 24; Blood Urea Nitrogen 22 mg/dL (7-17); Calcium 8.1 mg/dL (8.4-10.2); Hemolysis Index 3
--- NOTE | 2017-08-07 09:56 | Progress Note ---
Assessment and Plan Assessment and plan: Acute respiratory failure with hypoxia Continue BiPAP as needed Aggressive Nebulizers/Inhalers ABG when necessary Oxygen supplement Supportive care Acute on chronic combined systolic and diastolic heart failure Recent echocardiogram revealed EF of 40-45% with mild hypokinesis. Continue Diuresis, beta blockers and ACEI/ARB Strict I&O's and daily weights Low-sodium/cardiac diet/fluid restriction Closely monitor electrolytes Cardiology following Acute COPD exacerbation Continue on Duoneb every 6 hours Started IV steroid Solumedrol Initiated empiric IV Rocephin and azithromycin Oxygen as necessary A. fib with RVR. Continue Cardizem drip. Transition to by mouth Cardizem per Cardiology. Check TSH. Hypertension Continue home antihypertensive medications Closely monitor blood pressure Tobacco abuse Smoking cessation counseling done. Patient strongly advised to quit. DVT prophylaxis Lovenox History Interval history: No new issues overnight. Hospitalist Physical - Constitutional Vitals: Temp Pulse Resp BP Pulse Ox 98.3 F 91 H 18 95/63 98 08/07/17 04:33 08/07/17 04:33 08/07/17 04:33 08/07/17 04:33 08/07/17 04:33 General appearance: Present: no acute distress, well-nourished, other (on BiPAP) - EENT Eyes: Present: PERRL, EOM intact ENT: hearing intact, clear oral mucosa, dentition normal - Neck Neck: Present: supple, normal ROM - Respiratory Respiratory effort: normal Respiratory: bilateral: CTA - Cardiovascular Rhythm: regular Heart Sounds: Present: S1 & S2. Absent: gallop, rub - Extremities Extremities: no ischemia, No edema, Full ROM - Abdominal General gastrointestinal: soft, non-tender, non-distended, normal bowel sounds - Integumentary Integumentary: Present: clear, warm, dry - Neurologic Neurologic: CNII-XII intact, moves all extremities Results - Labs CBC & Chem 7: 08/07/17 05:03 08/07/17 05:03 Labs: Laboratory Last Values WBC 3.7 K/mm3 (4.5-11.0) L 08/07/17 05:03 RBC 3.71 M/mm3 (3.65-5.03) 08/07/17 05:03 Hgb 11.5 gm/dl (10.1-14.3) 08/07/17 05:03 Hct 33.7 % (30.3-42.9) 08/07/17 05:03 MCV 91 fl (79-97) 08/07/17 05:03 MCH 31 pg (28-32) 08/07/17 05:03 MCHC 34 % (30-34) 08/07/17 05:03 RDW 14.2 % (13.2-15.2) 08/07/17 05:03 Plt Count 164 K/mm3 (140-440) 08/07/17 05:03 Lymph % (Auto) 11.9 % (13.4-35.0) L 08/07/17 05:03 [place] % (Auto) 3.3 % (0.0-7.3) 08/07/17 05:03 Eos % (Auto) 0.0 % (0.0-4.3) 08/07/17 05:03 Baso % (Auto) 0.2 % (0.0-1.8) 08/07/17 05:03 Lymph # 0.4 K/mm3 (1.2-5.4) L 08/07/17 05:03 [place] # 0.1 K/mm3 (0.0-0.8) 08/07/17 05:03 Eos # 0.0 K/mm3 (0.0-0.4) 08/07/17 05:03 Baso # 0.0 K/mm3 (0.0-0.1) 08/07/17 05:03 Seg Neutrophils % 84.6 % (40.0-70.0) H 08/07/17 05:03 Seg Neutrophils # 3.1 K/mm3 (1.8-7.7) 08/07/17 05:03 D-Dimer 324.50 ng/mlDDU (0-234) H 08/06/17 16:44 Sodium 140 mmol/L (137-145) 08/07/17 05:03 Potassium 3.5 mmol/L (3.6-5.0) L D 08/07/17 05:03 Chloride 99.4 mmol/L (98-107) 08/07/17 05:03 Carbon Dioxide 27 mmol/L (22-30) 08/07/17 05:03 Anion Gap 17 mmol/L 08/07/17 05:03 BUN 22 mg/dL (7-17) H 08/07/17 05:03 Creatinine 0.9 mg/dL (0.7-1.2) 08/07/17 05:03 Estimated GFR > 60 ml/min 08/07/17 05:03 BUN/Creatinine Ratio 24 % 08/07/17 05:03 Glucose 203 mg/dL (65-100) H 08/07/17 05:03 Lactic Acid 1.00 mmol/L (0.7-2.0) 08/06/17 06:48 Calcium 8.1 mg/dL (8.4-10.2) L 08/07/17 05:03 Total Bilirubin 0.70 mg/dL (0.1-1.2) 08/06/17 Unknown AST 25 units/L (5-40) 08/06/17 Unknown ALT 34 units/L (7-56) 08/06/17 Unknown Alkaline Phosphatase 110 units/L (35-129) 08/06/17 Unknown Total Creatine Kinase 82 units/L (30-135) 08/06/17 Unknown CK-MB (CK-2) 5.0 ng/mL (0.0-4.0) H 08/06/17 Unknown CK-MB (CK-2) Rel Index 6.0 (0-4) H 08/06/17 Unknown Troponin T 0.024 ng/mL (0.00-0.029) 08/06/17 Unknown NT-Pro-B Natriuret Pep 26482 pg/mL (0-900) H 08/06/17 Unknown Total Protein 6.3 g/dL (6.3-8.2) 08/06/17 Unknown Albumin 3.6 g/dL (3.9-5) L 08/06/17 Unknown Albumin/Globulin Ratio 1.3 % 08/06/17 Unknown Urine Color Yellow (Yellow) 08/06/17 10:13 Urine Turbidity Cloudy (Clear) 08/06/17 10:13 Urine pH 5.0 (5.0-7.0) 08/06/17 10:13 Ur Specific [place] 1.020 (1.003-1.030) 08/06/17 10:13 Urine Protein 30 mg/dl mg/dL (Negative) 08/06/17 10:13 Urine Glucose (UA) Neg mg/dL (Negative) 08/06/17 10:13 Urine Ketones Neg mg/dL (Negative) 08/06/17 10:13 Urine Blood Lg (Negative) 08/06/17 10:13 Urine Nitrite Neg (Negative) 08/06/17 10:13 Urine Bilirubin Neg (Negative) 08/06/17 10:13 Urine Urobilinogen 4.0 mg/dL (<2.0) 08/06/17 10:13 Ur Leukocyte Esterase Tr (Negative) 08/06/17 10:13 Urine WBC (Auto) 14.0 /HPF (0.0-6.0) H 08/06/17 10:13 Urine RBC (Auto) 11.0 /HPF (0.0-6.0) 08/06/17 10:13 U Epithel Cells (Auto) 3.0 /HPF (0-13.0) 08/06/17 10:13 Urine Bacteria (Auto) 2+ /HPF (Negative) 08/06/17 10:13 Hyaline Casts 1 /LPF 08/06/17 10:13 Urine Mucus Few /HPF 08/06/17 10:13 Urine Opiates Screen Presumptive negative 08/06/17 10:13 Urine Methadone Screen Presumptive negative 08/06/17 10:13 Ur Barbiturates Screen Presumptive negative 08/06/17 10:13 Ur Phencyclidine Scrn Presumptive negative 08/06/17 10:13 Ur Amphetamines Screen Presumptive negative 08/06/17 10:13 U Benzodiazepines Scrn Presumptive negative 08/06/17 10:13 Urine Cocaine Screen Presumptive negative 08/06/17 10:13 U Marijuana (THC) Screen Presumptive positive 08/06/17 10:13 Drugs of Abuse Note Disclamer 08/06/17 10:13 Plasma/Serum Alcohol < 0.01 gm% (0-0.07) 08/06/17 Unknown
[2017-08-07] MEDS: celeXA PO SCH (10:50)
[2017-08-07] MEDS: ZESTRIL PO SCH (10:51)
[2017-08-07] MEDS: LOVENOX SUB-Q SCH (10:51)
[2017-08-07] MEDS: LASIX IV SCH (10:51)
[2017-08-07] MEDS: COREG PO SCH (10:52)
[2017-08-07] MEDS: ZITHROMAX 500 MG in NACL 0.9% 250ML 250 ML IV SCH (11:00)
[2017-08-07] MEDS: cefTRIAXone 1 GM in NACL 0.9% 20 ML IV SCH (11:01)
--- NOTE | 2017-08-07 14:01 | Progress Note ---
Assessment and Plan Patient is admitted with new onset atrial fibrillation with rapid ventricular response and difficulty in breathing. She had cardiac workup done recently and no significant ischemic heart disease is noted left ventricular dysfunction is present. Today the rate is well controlled. She is alert and in atrial fibrillation. Advised about the need for anticoagulation. Patient is started on elliquis will stop Lovenox tomorrow. Patient continues to improve. - Patient Problems (1) Atrial fibrillation with RVR Current Visit: Yes Status: Acute (2) CHF (congestive heart failure) Current Visit: Yes Status: Acute Qualifiers: Congestive heart failure type: unspecified congestive heart failure type Congestive heart failure chronicity: acute Qualified Code(s): I50.9 - Heart failure, unspecified (3) Left bundle branch block Current Visit: No Status: Acute Subjective Date of service: 08/07/17 Interval history: Patient feels much better today. No significant chest pain. Objective Vital Signs Temp Pulse Pulse Resp Resp BP BP 08/07/17 11:24 08/07/17 11:15 98 H 20 08/07/17 10:52 87 123/48 08/07/17 10:50 96 H 18 08/07/17 07:35 97.9 F 94 H 18 123/48 08/07/17 04:33 98.3 F 91 H 18 95/63 08/06/17 23:03 91 H 161/134 08/06/17 23:00 91 H 08/06/17 22:48 98.2 F 91 H 18 161/134 08/06/17 22:21 95 H 26 H 139/118 08/06/17 22:11 106 H 26 H 139/118 08/06/17 22:01 112 H 27 H 139/118 08/06/17 21:51 105 H 29 H 139/118 08/06/17 21:41 129 H 21 139/118 08/06/17 21:31 102 H 21 139/118 08/06/17 21:21 106 H 27 H 99/69 08/06/17 21:11 132 H 22 99/69 08/06/17 21:01 104 H 24 99/69 08/06/17 21:00 20 08/06/17 20:51 126 H 14 99/69 08/06/17 20:41 107 H 16 99/69 08/06/17 20:31 100 H 14 99/69 08/06/17 20:21 99 H 19 78/52 08/06/17 20:11 93 H 22 78/52 08/06/17 20:07 107 H 19 08/06/17 20:03 89 17 08/06/17 20:01 94 H 19 78/52 08/06/17 19:51 99 H 22 100/70 08/06/17 19:41 91 H 22 100/70 08/06/17 19:31 88 19 100/70 08/06/17 19:21 104 H 19 105/60 08/06/17 19:11 93 H 26 H 105/60 08/06/17 19:01 108 H 22 105/60 08/06/17 18:51 98 H 28 H 105/60 08/06/17 18:41 110 H 17 105/60 08/06/17 18:31 99 H 17 102/52 08/06/17 18:21 107 H 21 102/52 08/06/17 18:11 97 H 28 H 102/52 08/06/17 18:01 105 H 17 102/52 08/06/17 17:45 107 H 22 98/38 08/06/17 17:31 105 H 29 H 98/38 08/06/17 17:15 99 H 23 98/38 08/06/17 17:01 105 H 26 H 98/38 08/06/17 16:45 106 H 29 H 118/80 08/06/17 16:30 98 H 27 H 118/80 08/06/17 16:15 98 H 17 113/78 08/06/17 16:00 92 H 18 113/78 08/06/17 15:45 106 H 20 112/65 08/06/17 15:30 94 H 19 112/65 08/06/17 15:15 94 H 20 110/82 08/06/17 15:01 91 H 19 110/82 08/06/17 14:45 88 21 59/37 08/06/17 14:40 95 H 18 08/06/17 14:30 101 H 28 H 59/37 08/06/17 14:18 94 H 18 08/06/17 14:15 91 H 28 H 76/39 08/06/17 14:01 93 H 19 91/62 Pulse Ox 08/07/17 11:24 96 08/07/17 11:15 08/07/17 10:52 08/07/17 10:50 08/07/17 07:35 96 08/07/17 04:33 98 08/06/17 23:03 08/06/17 23:00 08/06/17 22:48 96 08/06/17 22:21 96 08/06/17 22:11 96 08/06/17 22:01 89 08/06/17 21:51 98 08/06/17 21:41 97 08/06/17 21:31 84 08/06/17 21:21 96 08/06/17 21:11 96 08/06/17 21:01 96 08/06/17 21:00 08/06/17 20:51 96 08/06/17 20:41 95 08/06/17 20:31 95 08/06/17 20:21 95 08/06/17 20:11 97 08/06/17 20:07 08/06/17 20:03 95 08/06/17 20:01 95 08/06/17 19:51 97 08/06/17 19:41 97 08/06/17 19:31 95 08/06/17 19:21 96 08/06/17 19:11 96 08/06/17 19:01 97 08/06/17 18:51 95 08/06/17 18:41 95 08/06/17 18:31 86 08/06/17 18:21 97 08/06/17 18:11 95 08/06/17 18:01 93 08/06/17 17:45 95 08/06/17 17:31 96 08/06/17 17:15 93 08/06/17 17:01 94 08/06/17 16:45 93 08/06/17 16:30 97 08/06/17 16:15 95 08/06/17 16:00 97 08/06/17 15:45 97 08/06/17 15:30 97 08/06/17 15:15 97 08/06/17 15:01 100 08/06/17 14:45 97 08/06/17 14:40 08/06/17 14:30 98 08/06/17 14:18 08/06/17 14:15 97 08/06/17 14:01 96 - Physical Examination General: Appears Well HEENT: Positive: PERRL Neck: Positive: neck supple Cardiac: Positive: irregularly irregular Lungs: Positive: clear to auscultation Abdomen: Positive: Soft Skin: Positive: Clear Extremities: Present: normal - Labs and Meds CBC 08/07/17 Range/Units 05:03 WBC 3.7 L (4.5-11.0) K/mm3 RBC 3.71 (3.65-5.03) M/mm3 Hgb 11.5 (10.1-14.3) gm/dl Hct 33.7 (30.3-42.9) % Plt Count 164 (140-440) K/mm3 Lymph # 0.4 L (1.2-5.4) K/mm3 [place] # 0.1 (0.0-0.8) K/mm3 Eos # 0.0 (0.0-0.4) K/mm3 Baso # 0.0 (0.0-0.1) K/mm3 Comprehensive Metabolic Panel 08/07/17 Range/Units 05:03 Sodium 140 (137-145) mmol/L Potassium 3.5 L D (3.6-5.0) mmol/L Chloride 99.4 (98-107) mmol/L Carbon Dioxide 27 (22-30) mmol/L BUN 22 H (7-17) mg/dL Creatinine 0.9 (0.7-1.2) mg/dL Glucose 203 H (65-100) mg/dL Calcium 8.1 L (8.4-10.2) mg/dL
[2017-08-07] MEDS: ELIQUIS PO SCH (21:50)
[2017-08-07] MEDS ORDERED: CARDIZEM PO ONE (22:00)
[2017-08-08] MEDS: DUONEB *Not for PRN Use IH SCH ×3 (02:06→13:26)
[2017-08-08] MEDS: celeXA PO SCH (09:51)
[2017-08-08] MEDS: LASIX IV SCH (09:51)
[2017-08-08] MEDS: ZESTRIL PO SCH (09:51)
[2017-08-08] MEDS: ELIQUIS PO SCH (09:51)
[2017-08-08] MEDS: COREG PO SCH (09:51)
[2017-08-08] MEDS: cefTRIAXone 1 GM in NACL 0.9% 20 ML IV SCH (10:30)
--- NOTE | 2017-08-08 10:57 | Discharge Summary ---
Providers - Providers Date of Admission: 08/06/17 09:45 Date of discharge: 08/08/17 Attending physician: HAILEY WHITTAKER 08/06/17 09:45 Consult to Physician [CONS] Routine Consulting Provider: STAN HUTCHISON Reason For Exam: chf Place consult to:: CARDIOLOGY Notified:: Y If yes, spoke with:: Rory/Monie REDDY Time called:: 09:50 08/06/17 09:49 Consult to Physician [CONS] Routine Consulting Provider: DAKOTAH PAVON Reason For Exam: critical care Place consult to:: CC [employer] Notified:: Y If yes, spoke with:: A/Monie MARTI Time called:: 09:55 Primary care physician: HAILEY BUENROSTRO Hospitalization Condition: Stable Disposition: DC-30 STILL A PATIENT Exam - Constitutional Vitals: Temp Pulse Resp BP Pulse Ox 97.8 F 87 20 125/86 95 08/08/17 08:01 08/08/17 08:16 08/08/17 08:16 08/08/17 08:01 08/08/17 10:00 Plan Activity: advance as tolerated Diet: low fat, low cholesterol, low salt Additional Instructions: 1.Follow up with PCP in 1 week. 2.Follow up with [facility] in 1 week Follow up with: HAILEY BUENROSTRO MD [Primary Care Provider] - 3-5 Days Prescriptions: Apixaban [Eliquis] 5 mg PO Q12HR #60 tablet Furosemide [Lasix] 20 mg PO QDAY #10 tablet Prednisone [predniSONE 5 mg (6-Day Pack, 21 Tabs)] 5 mg PO .TAPER #1 tab.ds.pk
[2017-08-08] MEDS: ZITHROMAX 500 MG in NACL 0.9% 250ML 250 ML IV SCH (11:00)
--- NOTE | 2017-08-08 11:29 | Progress Note ---
Assessment and Plan Patient is admitted with new onset atrial fibrillation with rapid ventricular response and difficulty in breathing. She had cardiac workup done recently and no significant ischemic heart disease is noted left ventricular dysfunction is present. Today the rate is well controlled. She is alert and in atrial fibrillation. Currently the rate is controlled except immediately after the respiratory treatments. She is on anticoagulates. Discussed with Dr. Rogers. and agree with discharge plans. Patient will be followed in the office in one week. - Patient Problems (1) Atrial fibrillation with RVR Current Visit: Yes Status: Acute (2) CHF (congestive heart failure) Current Visit: Yes Status: Acute Qualifiers: Congestive heart failure type: unspecified congestive heart failure type Congestive heart failure chronicity: acute Qualified Code(s): I50.9 - Heart failure, unspecified (3) Left bundle branch block Current Visit: No Status: Acute Subjective Date of service: 08/08/17 Interval history: Patient is doing well today. Rhythm is atrial fibrillation rate is well controlled. She is on anticoagulations. Objective Vital Signs Temp Pulse Pulse Resp Resp BP Pulse Ox 08/08/17 10:00 95 08/08/17 08:16 87 20 08/08/17 08:06 105 H 20 08/08/17 08:01 97.8 F 112 H 18 125/86 96 08/08/17 04:36 98.0 F 105 H 18 97/58 98 08/07/17 23:36 98.3 F 87 18 94/62 98 08/07/17 21:59 96 08/07/17 20:58 98 H 20 08/07/17 20:48 103 H 20 08/07/17 20:00 99 H 08/07/17 19:43 97.9 F 73 18 90/63 97 08/07/17 17:28 66 18 08/07/17 17:16 51 L 18 08/07/17 17:01 107 H 115/80 98 - Physical Examination General: Appears Well HEENT: Positive: PERRL Neck: Positive: neck supple Cardiac: Positive: irregularly irregular Lungs: Positive: clear to auscultation Abdomen: Positive: Soft Skin: Positive: Clear Extremities: Present: normal
--- NOTE | 2017-08-08 12:43 | Consultation ---
CARDIOLOGY EVALUATION HISTORY OF PRESENT ILLNESS: The patient is a 71-year-old female seen for cardiac evaluation because of increasing difficulty in breathing and atrial fibrillation with rapid ventricular response. The patient's has been bothered by difficulty in breathing, which has been progressively getting worse within the last 1 week. The patient denies any chest pain. She also has noticed palpitation. When the patient came to the Emergency Room, she was noted to be in atrial fibrillation with rapid ventricular response. The patient is started on intravenous Cardizem drip, with that the rate has improved and the patient is feeling some better. The patient is known to have congestive heart failure diagnosed about 15 years ago. She is known to have had chest pain and previously abnormal stress test. She is also known to have chronic obstructive pulmonary disease as she used to be a chronic smoker. Until recently, she has been smoking about half a pack daily. She is also known to have had significant hypertension. The patient was admitted earlier in July. The patient underwent cardiac catheterization done on 07/18/2017. which showed an ejection fraction of 40% to 45% and no significant obstructive coronary disease was noted. During that evaluation, the patient appeared to be in sinus rhythm and I do not see any documentation of prior atrial fibrillation. The patient did have left bundle branch block in the past also. REVIEW OF SYSTEMS: HEAD, EYES, EARS, NOSE AND THROAT: No symptoms. ENDOCRINE: No diabetes. No history of thyroid problems. GASTROINTESTINAL: No abdominal pain, nausea, vomiting. Bowel habits have been regular. GENITOURINARY: No symptoms. CENTRAL NERVOUS SYSTEM: No history of cerebrovascular accident or convulsive disorder. PERSONAL HISTORY: The patient is nonalcoholic, but does smoke half pack a day and she apparently stopped very recently. PHYSICAL EXAMINATION: GENERAL: Elderly female, well built and nourished, in no acute distress. VITAL SIGNS: Blood pressure 100/60. NECK: Supple. No thyromegaly. Both carotids are palpable and equal. No bruits are noted. CHEST: Symmetrical. LUNGS: Essentially clear. Few scattered rhonchi present. HEART: S1 and S2 are heard well. Rhythm is noted to be irregular. ABDOMEN: Soft, nontender. No hepatosplenomegaly. EXTREMITIES: No calf tenderness. LABORATORY DATA: EKG showed atrial fibrillation with rapid ventricular response, left bundle branch block with associated ST-T changes was noted. Currently, rhythm strips show improved heart rate, close to 100 beats per minute. LABORATORY DATA: Routine labs are pending. IMPRESSION: 1. Atrial fibrillation with rapid ventricular response, new onset. 2. History of hypertension. 3. History of congestive heart failure. Recent cardiac catheterization on 07/18/2017 showed normal coronary anatomy with ejection fraction of 40% to 45%. The patient is seen for cardiac evaluation. At present, she is on intravenous Cardizem drip. Blood pressure is somewhat low, she is tolerating the same for now and her heart rate is stable. If need be, we may have to use intravenous digoxin to improve the cardiac rate. The patient will probably need an anticoagulant for stroke protection. The patient will be followed closely along with you. The patient is strongly advised against smoking any further. Thank you for allowing me to participate in the care of this pleasant lady. JOB# [id number] M/[id number]
[2017-08-08 12:52] VITALS: BP 106/62
--- NOTE | 2017-08-08 14:44 | Consultation ---
PULMONARY CRITICAL CARE EVALUATION CONSULTING PHYSICIAN: Dr. Alfred Munoz. REASON FOR CONSULTATION: Need for ICU admission, atrial fibrillation with a rapid ventricular response, hypoxemic respiratory failure. CHIEF COMPLAINT AND HISTORY OF PRESENT ILLNESS: The patient is a 71-year-old female with past medical history indeed significant for a diagnosis of atrial fibrillation, but also chronic obstructive lung disease, who came into the Emergency Room complaining of worsening dyspnea and dyspnea on exertion. She denied any palpitations. She denied any chest pain. She denied any cough or expectoration. She had been recently discharged from the hospital for COPD exacerbation and told me that she really was not using her inhalers because she did not think the nebulizers work as much as the inhaler, so she was using her liquid medications she states. In the ER, she was found to be in significant atrial fibrillation with a rapid ventricular response and also to be hypoxemic. We are asked to assist in her management. When I stopped by to see her, she was resting in the bed, feeling a little bit better. Her pulse was still occasionally going into the 100s. However, she was coming down on her Cardizem drip. The drip was down to 5 mg per hour. With regards to tobacco use or abuse, she has a 20+ packed year tobacco smoking history and continues to smoke and is not interested in quitting at this time. She denied any new onset leg pain or swelling either unilaterally or bilaterally, any gross or streaky hemoptysis or any suggestion of venous thromboembolic disease and denied any rhinorrhea, sore throat, any suggestion of upper respiratory tract infection. No fevers, no chills. PAST MEDICAL HISTORY: Atrial fibrillation, COPD, congestive heart failure, ejection of fraction 40-45%, hypertension, adult failure to thrive, tobacco use disorder. PAST SURGICAL HISTORY: Denied. MEDICATIONS: She was on at that time were reviewed. Pertinent medications included the following: She was on DuoNeb treatments nebulized q.6 hours. She was on Coreg 6.25 mg p.o. daily. She was on Celexa 20 mg p.o. daily, Lovenox 40 mg subQ daily, lisinopril 10 mg p.o. daily, and Solu-Medrol 40 mg IV q.8 hours. ALLERGIES: No known drug allergies. DIET: Thin lady, denied any acute weight loss or gain in the preceding few weeks to months. FAMILY AND SOCIAL HISTORY: Lives in the community. I believe her grandchild is in the room. She has a 20+ packed year tobacco smoking history. Denies alcohol or illicit drug use or abuse. Family history otherwise noncontributory. REVIEW OF SYSTEMS: She denied any loss of consciousness. She denied any new onset of seizures. She denied any new onset focal weakness. No gross hemoptysis, no gross hematochezia, no melena, no hematemesis. Complete 13 systems review of systems is obtained. Pertinent positives and/or negatives as in body of the history above. Otherwise, they are noncontributory. PHYSICAL EXAMINATION: VITAL SIGNS: At presentation in the Emergency Room, review of the vital signs shows that she was with a low-grade fever at 99.0 Fahrenheit with a pulse of 124, respiratory rate of 30, blood pressure 86/62, oxygen sats were 96%, inspired oxygen concentration was not recorded. At the time I saw her, she was on 3 liters nasal cannula. GENERAL: She is a thin looking elderly lady, who looks her stated age, talking to me in slightly interrupted sentences, in [id number] respiratory distress. HEAD, EYES, EARS, NOSE, AND THROAT: She is normocephalic and atraumatic. She is anicteric. No conjunctival erythema. Oropharynx is a Mallampati 2 oropharynx. Oropharynx is moist grossly. NECK: No jugular venous distention, no thyromegaly. Grossly no palpable lymph nodes in the supraclavicular or submandibular lymph node chains. LUNGS: Auscultation on both lung jimenez significant for diminished bilateral breath sounds, bilateral basilar predominant rhonchi, no wheezing. CARDIOVASCULAR: Heart sounds 1 and 2 are heard. Irregular rate and rhythm at the time of my evaluation without any significant rubs or murmurs. ABDOMEN: Soft, flat. Bowel sounds are positive, nontender, no palpable hepatosplenomegaly. EXTREMITIES: Without overt digital clubbing, cyanosis, no pedal edema. Dorsalis pedis pulses are palpable bilaterally. NEUROLOGIC: The pupils were equal, round, and reactive to light. Extraocular muscle movements were intact. She moved all 4 extremities spontaneously. No fasciculations. No spasticity. The skin was of poor turgor without overt tenting. No rash. No cellulitis. Some bruising at the points of blood draws. PSYCHIATRIC: Her mood was normal, affect was appropriate. LABORATORY DATA: From my review are as follows: Admission white cell count 8600, hemoglobin 12.7, hematocrit 37.7, platelet count 168. D-dimer was slightly elevated at 324. Serum sodium 139, potassium 4.8, chloride 100, bicarbonate 23, BUN 22, creatinine 1.0, glucose 146. Cardiac enzymes essentially within normal limits. BNP was elevated at 35,000. Urinalysis: Trace leukocyte esterase, 14 white cells per high powered field. Urine drug screen was presumptively positive for marijuana. Alcohol level was nondetectable. Rapid influenza screen for types A and B were negative. Blood cultures: No growth to date at the time I saw her. Radiographic studies have been reviewed. A chest x-ray was done. I have reviewed the chest x-ray, which essentially shows gross cardiomegaly, possible small pleural effusion on the left with blunting of the costophrenic angle, increased interstitial markings have both the chronic as well as an acute pulmonary edema parts in. No gross pneumothorax. No gross bony fracture. There is evidence of hyperinflation with flattening of both hemidiaphragms. I cannot rule out a right middle lobe and/or lingular infiltrate. DISCUSSION AND ASSESSMENT: I should first of all say that the chest x-ray was bothersome. I did take a look at the CT scan, however, from a recent admission on 07/15/2017 and there does not appear to be any significant occult lesions or adenopathy. Perhaps the rotation of the x-ray obscured the imaging and made it look more odious. ASSESSMENT: 1. Acute hypoxemic respiratory failure, questionably on chronic. 2. Acute chronic obstructive pulmonary disease exacerbation. 3. Atrial fibrillation with a rapid ventricular response. 4. Hypertension. 5. Tobacco use disorder. 6. Possible urinary tract infection. PLAN: Continue Cardizem drip and wean off as ordered per the registered nurse cardiac. Other rate control medications including metoprolol can be included. I do note that the plan by the registered nurse cardiac is to consider digoxin for rate control in light of her low blood pressures. Bronchodilators should continue as ordered. Aspiration precaution should continue. Oxygen will be titrated to keep sats greater than or equal to about 90%. We will continue systemic steroids, but taper quickly. In light of the tachycardia, I will go ahead and begin long-acting bronchodilators, Brovana and make the DuoNeb p.r.n. I will begin inhaled steroids while tapering the systemic steroids. Tobacco cessation has been strongly counseled. She will be placed on GI prophylaxis, especially with the plan for full anticoagulation. She is on DVT prophylaxis. Flu and pneumonia vaccination will be per protocol. Thank you very much for the consult. We will follow along. If we cannot get her off the Cardizem drip in the Emergency Room, she will be welcome for admission to the Intensive Care Unit. We will follow along and make further recommendations as picture progresses/becomes clearer. JOB# [id number] LYNDA/NANNETTE
--- NOTE | 2017-08-08 15:12 | Progress Note ---
Assessment and Plan Patient alert, awake. Resting on nasal canula. O2 saturation 95% on 3 litres O2. Patient has elevated D dimer, Obtaining Angio CT of chest. - Patient Problems (1) Pneumonia Current Visit: Yes Status: Acute Qualifiers: Aspiration pneumonia type: unspecified Laterality: bilateral Lung location: unspecified part of lung Plan to address problem: Continue Ceftrioxone and Zithromax. (2) COPD (chronic obstructive pulmonary disease) Current Visit: No Status: Chronic Qualifiers: COPD type: unspecified COPD Qualified Code(s): J44.9 - Chronic obstructive pulmonary disease, unspecified Plan to address problem: O2 2 litres via nasal canula. Albuterol/atrovent aerosol treatments q 6 hours Continue I/V solumedral (3) Atrial fibrillation with RVR Current Visit: Yes Status: Acute Plan to address problem: Patient is on Apixaban. (4) CHF (congestive heart failure) Current Visit: Yes Status: Acute Qualifiers: Congestive heart failure type: unspecified congestive heart failure type Congestive heart failure chronicity: acute Qualified Code(s): I50.9 - Heart failure, unspecified Plan to address problem: Management as per cardiology. (5) Accelerated hypertension Current Visit: No Status: Acute Plan to address problem: Management as per primary care. Subjective Date of service: 08/08/17 Interval history: Patient alert, awake. Resting on nasal canula. O2 saturation 95% on 3 litres O2. Patient has elevated D dimer, Obtaining Angio CT of chest. Objective Vital Signs - 12hr 08/08/17 08/08/17 08/08/17 04:36 08:01 08:06 Temperature 98.0 F 97.8 F Pulse Rate 105 H 112 H Pulse Rate [ 105 H Posterior Bilateral Throughout] Respiratory 18 18 Rate Respiratory 20 Rate [Posterior Bilateral Throughout] Blood Pressure 97/58 125/86 O2 Sat by Pulse 98 96 Oximetry 08/08/17 08/08/17 08/08/17 08:16 10:00 11:58 Temperature 97.6 F Pulse Rate 74 Pulse Rate [ 87 Posterior Bilateral Throughout] Respiratory 20 Rate Respiratory 20 Rate [Posterior Bilateral Throughout] Blood Pressure 106/62 O2 Sat by Pulse 95 93 Oximetry 08/08/17 08/08/17 13:26 13:36 Temperature Pulse Rate Pulse Rate [ 95 H 98 H Posterior Bilateral Throughout] Respiratory Rate Respiratory 20 20 Rate [Posterior Bilateral Throughout] Blood Pressure O2 Sat by Pulse Oximetry Constitutional: no acute distress, alert ENT: oropharynx moist Neck: supple, no lymphadenopathy Ascultation: Bilateral: diminished breath sounds (Prolonged expiratory phase.) Cardiovascular: regular rate and rhythm Gastrointestinal: normoactive bowel sounds Integumentary: normal, rash Extremities: no cyanosis, no edema Neurologic: normal mental status, non-focal exam, pupils equal and round, CN II- XII normal Psychiatric: mood appropriate CBC and BMP: 08/07/17 05:03 08/07/17 05:03 ABG, PT/INR, D-dimer: PT/INR, D-dimer D-Dimer 324.50 ng/mlDDU (0-234) H 08/06/17 16:44 Abnormal lab findings: Abnormal Labs 08/06/17 08/06/17 08/06/17 10:13 16:44 Unknown WBC Lymph % (Auto) [place] % (Auto) 9.8 H Lymph # Seg Neutrophils % 76.3 H D-Dimer 324.50 H Potassium BUN Glucose Calcium CK-MB (CK-2) CK-MB (CK-2) Rel Index NT-Pro-B Natriuret Pep Albumin Urine WBC (Auto) 14.0 H 08/06/17 08/06/17 08/07/17 Unknown Unknown 05:03 WBC 3.7 L Lymph % (Auto) 11.9 L [place] % (Auto) Lymph # 0.4 L Seg Neutrophils % 84.6 H D-Dimer Potassium BUN 22 H Glucose 146 H Calcium CK-MB (CK-2) 5.0 H CK-MB (CK-2) Rel Index 6.0 H NT-Pro-B Natriuret Pep 23623 H Albumin 3.6 L Urine WBC (Auto) 08/07/17 05:03 WBC Lymph % (Auto) [place] % (Auto) Lymph # Seg Neutrophils % D-Dimer Potassium 3.5 L D BUN 22 H Glucose 203 H Calcium 8.1 L CK-MB (CK-2) CK-MB (CK-2) Rel Index NT-Pro-B Natriuret Pep Albumin Urine WBC (Auto) Chest x-ray: report reviewed (Right middle lobe and lingular infiltrates.), image reviewed
== END 2017-08-08 16:28 | disposition home or self-care (01) | DRG 177 ==
LOC: ED 03:45 → CC1 09:45 → 4A 20:59
PROVIDERS: ADMIT Hospitalist; ATTEND Internal Medicine
PROC: 5A09357 Assistance with Respiratory Ventilation, Less than 24 Consecutive Hours, Continuous Positive Airway Pressure (ICD-10-PCS; principal; 2017-08-06)
DX: J69.0 Pneumonitis due to inhalation of food and vomit (principal); J96.01 Acute respiratory failure with hypoxia; I50.43 Acute on chronic combined systolic (congestive) and diastolic (congestive) heart failure; J44.1 Chronic obstructive pulmonary disease with (acute) exacerbation; I11.0 Hypertensive heart disease with heart failure; I48.91 Unspecified atrial fibrillation; I44.7 Left bundle-branch block, unspecified; F17.210 Nicotine dependence, cigarettes, uncomplicated; I25.2 Old myocardial infarction; Z71.6 Tobacco abuse counseling; Z79.899 Other long term (current) drug therapy
CPT/HCPCS: 36415; 71010; 80048; 80053; 80307; 80320; 81001; 82140; 82550; 82553; 83880; 84484; 85025; 85379; 87040; 87400; 93005; 93010; 94640; 94760; 96374; G0480; J0456; J0696; J1650; J1940; J2920; J7050

== ENCOUNTER 2017-12-25 18:17 | Inpatient (IN) | payer MEDICARE ==
[2017-12-25] MEDS ORDERED: DUONEB *Not for PRN Use IH ONE (19:11)
[2017-12-25] MEDS ORDERED: LASIX IV ONE (19:11)
[2017-12-25] MEDS ORDERED: BABY ASPIRIN PO ONE (19:12)
--- NOTE | 2017-12-25 19:13 | Emergency Department Report ---
HPI - General Chief Complaint: Dyspnea/Respdistress Time Seen by Provider: 12/25/17 18:45 - HPI HPI: The patient is a 72-year-old female with a history of congestive heart failure, COPD, and atrial-fibrillation, and whom presents for evaluation of dyspnea. The patient reports worsening dyspnea since awakening this morning, greater than 4 hours prior to my evaluation, constant since onset, severe, exacerbated with activity. The patient denies trauma to the chest, syncope, hemoptysis, unilateral leg swelling, recent immobilization. ED Past Medical Hx - Past Medical History Previous Medical History?: Yes Hx Hypertension: Yes Hx Heart Attack/AMI: Yes Hx Congestive Heart Failure: Yes (card cath ef 40-45%, minimal coronary irregularities) Hx COPD: Yes Additional medical history: pneumonia. Atrial fibrillation. Dilated cardiomyopathy - Surgical History Past Surgical History?: Yes Hx Breast Surgery: Yes Additional Surgical History: breast surgery - Social History Smoking Status: Current Every Day Smoker Substance Use Type: None - Medications Home Medications: Home Medications Medication Instructions Recorded Confirmed Last Taken Type ALBUTEROL NEB's [Proventil 0.083% 2.5 mg IH Q4HRT PRN #60 nebu 10/09/17 Unknown Rx NEBS] Apixaban [Eliquis] 5 mg PO Q12HR #60 tablet 10/09/17 Unknown Rx Azithromycin [Zithromax Z-CIRO] 250 mg PO DAILY #6 tablet 10/09/17 Unknown Rx Citalopram [Celexa] 20 mg PO QDAY #30 tablet 10/09/17 Unknown Rx Furosemide [Lasix TAB] 20 mg PO QDAY #10 tablet 10/09/17 Unknown Rx Ipratropium/Albuterol Sulfate 1 ampul IH Q6HR #60 ampul.neb 10/09/17 Unknown Rx [DUONEB *Not for PRN Use*] Lovastatin [Altoprev] 20 mg PO QPM #30 tab.er.24h 10/09/17 Unknown Rx Metoprolol [Lopressor TAB] 25 mg PO TID #90 tablet 10/09/17 Unknown Rx Nebulizer and Compressor [Portable 1 each MC QID #1 each 10/09/17 Unknown Rx Nebulizer System] Prednisone [predniSONE 5 mg (6-Day 5 mg PO .TAPER #1 tab.ds.pk 10/09/17 Unknown Rx Pack, 21 Tabs)] Spironolactone [Aldactone] 25 mg PO QDAY #30 tablet 10/09/17 Unknown Rx guaiFENesin [Cough Syrup] 100 mg PO Q4H PRN #1 bottle 10/09/17 Unknown Rx ED Review of Systems ROS: Stated complaint: PIERO Other details as noted in HPI Constitutional: denies: fever ENT: denies: throat or neck pain Respiratory: reports cough, shortness of breath Cardiovascular: denies: chest pain Endocrine: denies unexplained weight loss or gain Gastrointestinal: denies: abdominal pain, nausea Genitourinary: denies: dysuria Musculoskeletal: denies: leg swelling Skin: denies: rash Neurological: denies: headache Hematological/Lymphatic: denies: easy bleeding or easy bruising Psych: denies sadness or hopelessness Physical Exam - Physical Exam Vital Signs: Vital Signs 12/25/17 18:27 Temperature 98.1 F Pulse Rate 96 H Respiratory 34 H Rate O2 Sat by Pulse 94 Oximetry Physical Exam: General: well-nourished, well-developed, no acute distress Head: Normocephalic, atraumatic Eyes: normal sclera ENT: Mucous membranes are pale and dry Neck: trachea midline, neck supple, No neck stiffness, no cervical adenopathy Respiratory: Diminished breath sounds and wheezing present to bilateral lung jimenez, crackles present bibasilar lung jimenez Cardio: S1 and S2 present, no murmurs, rubs, gallops, capillary refill is delayed Abdomen: Normoactive bowel sounds, soft abdomen, no rigidity, no guarding or rebound tenderness Musc: No pitting edema Skin: No rash Neuro: no facial drooping, normal speech Psych: Normal affect ED Course Vital Signs 12/25/17 18:27 Temperature 98.1 F Pulse Rate 96 H Respiratory 34 H Rate O2 Sat by Pulse 94 Oximetry ED Medical Decision Making - Lab Data Result diagrams: 12/25/17 18:41 12/25/17 18:41 - Medical Decision Making The patient was seen and examined by myself. The patient is placed on a monitoring engineer and continuous pulse ox. On initial evaluation, the patient was found to be in mild respiratory distress. Evaluation orders were placed. The patient is given a breathing treatment for treatment of her COPD exacerbation and lashes for treatment of her CHF exacerbation. Lab results revealed elevated BNP of 30,000, and hypoxemia on ABG, pO2 57. Chest x-ray revealed cardiomegaly and bilateral prominent interstitial markings vs. pulmonary vascular congestion/acute chf. The on-call hospitalist service was contacted. They agreed to admit the patient for further treatment and close monitoring. The ED admit order was placed. The patient was admitted in guarded condition. Critical care attestation.: If time is entered above; I have spent that time in minutes in the direct care of this critically ill patient, excluding procedure time. ED Disposition Clinical Impression: Acute on chronic combined systolic (congestive) and diastolic (congestive) heart failure, Atrial fibrillation with RVR, COPD exacerbation Acute respiratory failure Qualifiers: Respiratory failure complication: hypoxia Qualified Code(s): J96.01 - Acute respiratory failure with hypoxia Disposition: DC-09 OP ADMIT IP TO THIS HOSP Is pt being admited?: Yes Does the pt Need Aspirin: Yes Condition: Serious Instructions: Chronic Obstructive Pulmonary Disease (ED) Referrals: PRIMARY CARE, [Primary Care Provider] - 3-5 Days Time of Disposition: 19:12
[2017-12-25 19:16] LABS: Basophils % (Auto) 0.1 % (0.0-1.8); Eosinophils % (Auto) 0.1 % (0.0-4.3); Hematocrit 40.6 % (30.3-42.9); Hemoglobin 13.5 gm/dl (10.1-14.3); Lymphocytes # (Auto) 1.7 K/mm3 (1.2-5.4); Mean Corpuscular HGB Conc 33 % (30-34); Mean Corpuscular Hemoglobin 29 pg (28-32); Mean Corpuscular Volume 88 fl (79-97); Monocytes # (Auto) 0.4 K/mm3 (0.0-0.8); Monocytes % (Auto) 5.5 % (0.0-7.3); Red Blood Count 4.62 M/mm3 (3.65-5.03)
[2017-12-25 19:19] LABS: Platelet Count 96 K/mm3 (140-440)
[2017-12-25 19:26] LABS: BUN/Creatinine Ratio 18; Blood Urea Nitrogen 16 mg/dL (7-17); Calcium 8.9 mg/dL (8.4-10.2); Hemolysis Index 5
[2017-12-25 19:28] LABS: INR 1.22 (0.87-1.13)
--- NOTE | 2017-12-25 19:51 | XRay Report ---
FINAL REPORT PROCEDURE: XR CHEST 1V AP TECHNIQUE: Chest radiograph anteroposterior view. CPT 48788 HISTORY: dyspnea COMPARISON: Prior chest x-ray 08/06/2017 FINDINGS: The heart remains enlarged. The pulmonary vasculature is mildly distended and slightly ill-defined. Interstitial markings mildly coarsened. Interstitial markings project of the periphery of the right lower lobe. This may represent fibrosis. I cannot exclude mild pulmonary edema. No focal infiltrates or masses are seen. No effusions are seen. No evidence of pneumothorax. IMPRESSION: Cardiomegaly. Prominent interstitial markings as described may represent fibrosis although I cannot exclude mild pulmonary edema/CHF. No focal infiltrates are seen..
[2017-12-25] MEDS ORDERED: TYLENOL PO PRN (22:30)
[2017-12-25] MEDS ORDERED: ZOFRAN IV PRN (22:30)
--- NOTE | 2017-12-25 22:32 | History and Physical Report ---
History of Present Illness Date of examination: 12/25/17 History of present illness: 72-year-old woman history of coronary artery disease, A. fib, COPD, hypertension comes emergency room with complaints of shortness of breath that started yesterday. Not really greater nebulized treatments at home. Also complaining of a nonproductive cough, admits to wheezing RReview of systems Constitutional: no weight loss, chills Ears, eyes, nose, mouth and throat: no nasal congestion, no nasal discharge, no sinus pressure, no vision change, no red eye. Neck: No neck pain or rigidity. Cardiovascular: no chest pain, palpitations Respiratory: + cough, shortness of breath Gastrointestinal: no abdominal pain, hematochezia Genitourinary : no dysuria, frequency , no hematuria Musculoskeletal: no joint swelling or muscle ache Integumentary: no rash, no pruritis Neurological: no parathesias, no numbness, no focal weakness Endocrine: no cold or heat intolerance, no polyuria or polydipsia Hematologic/Lymphatic: no easy bruising, no easy bleeding, no gland swelling Allergic/Immunologic: no urticaria, no angioedema. PAST MEDICAL HISTORY:coronary artery disease, A. fib, COPD, hypertension PAST SURGICAL HISTORY: None SOCIAL HISTORY: Denies alcohol, drugs, smoke 8 cigarettes a day FAMILY HISTORY: Hypertension Medications and Allergies Allergies Allergy/AdvReac Type Severity Reaction Status Date / Time No Known Allergies Allergy Verified 08/06/17 04:08 Home Medications Medication Instructions Recorded Confirmed Last Taken Type ALBUTEROL NEB's [Proventil 0.083% 2.5 mg IH Q4HRT PRN #60 nebu 10/09/17 Unknown Rx NEBS] Apixaban [Eliquis] 5 mg PO Q12HR #60 tablet 10/09/17 Unknown Rx Azithromycin [Zithromax Z-CIRO] 250 mg PO DAILY #6 tablet 10/09/17 Unknown Rx Citalopram [Celexa] 20 mg PO QDAY #30 tablet 10/09/17 Unknown Rx Furosemide [Lasix TAB] 20 mg PO QDAY #10 tablet 10/09/17 Unknown Rx Ipratropium/Albuterol Sulfate 1 ampul IH Q6HR #60 ampul.neb 10/09/17 Unknown Rx [DUONEB *Not for PRN Use*] Lovastatin [Altoprev] 20 mg PO QPM #30 tab.er.24h 10/09/17 Unknown Rx Metoprolol [Lopressor TAB] 25 mg PO TID #90 tablet 10/09/17 Unknown Rx Nebulizer and Compressor [Portable 1 each MC QID #1 each 10/09/17 Unknown Rx Nebulizer System] Prednisone [predniSONE 5 mg (6-Day 5 mg PO .TAPER #1 tab.ds.pk 10/09/17 Unknown Rx Pack, 21 Tabs)] Spironolactone [Aldactone] 25 mg PO QDAY #30 tablet 10/09/17 Unknown Rx guaiFENesin [Cough Syrup] 100 mg PO Q4H PRN #1 bottle 10/09/17 Unknown Rx Exam - Physical Exam Narrative exam: Gen. appearance: Patient lying in bed, no apparent distress HEENT: Normocephalic, atraumatic, pupils equally round and reactive to light, extraocular movement intact, and no sclericterus,. No JVD or thyromegaly or nodule,neck supple, no carotid bruit ,mucous membranes moist, no exudate or erythema Heart: S1, S2, regular rate and rhythm Lungs: Clear to auscultation bilaterally, breathing comfortable Abdomen: Positive bowel sounds, nontender, nondistended, no organomegaly Extremity: No edema, cyanosis, clubbing Skin: No rash, nodules, warm, dry Neuro: Oriented 3, cranial nerves II-12 intact, speech is fluent, motor and sensory intact - Constitutional Vitals: Temp Pulse Resp BP Pulse Ox 98.5 F 101 H 28 H 164/102 94 12/25/17 19:35 12/25/17 19:35 12/25/17 19:35 12/25/17 19:35 12/25/17 19:35 Results - Labs CBC & Chem 7: 12/25/17 18:41 12/25/17 18:41 Labs: Abnormal lab results 12/25/17 12/25/17 12/25/17 Range/Units 18:41 18:41 18:54 RDW 16.0 H (13.2-15.2) % Plt Count 96 L (140-440) K/mm3 Seg Neutrophils % 72.3 H (40.0-70.0) % PT (12.2-14.9) Sec. INR (0.87-1.13) POC ABG pH (7.35-7.45) POC ABG pCO2 (35-45) POC ABG pO2 (80-105) Sodium 135 L (137-145) mmol/L Potassium 3.5 L (3.6-5.0) mmol/L Glucose 111 H (65-100) mg/dL NT-Pro-B Natriuret Pep 49527 H (0-900) pg/mL 12/25/17 12/25/17 Range/Units 18:54 19:09 RDW (13.2-15.2) % Plt Count (140-440) K/mm3 Seg Neutrophils % (40.0-70.0) % PT 16.1 H (12.2-14.9) Sec. INR 1.22 H (0.87-1.13) POC ABG pH 7.485 H (7.35-7.45) POC ABG pCO2 30.7 L (35-45) POC ABG pO2 57 L (80-105) Sodium (137-145) mmol/L Potassium (3.6-5.0) mmol/L Glucose (65-100) mg/dL NT-Pro-B Natriuret Pep (0-900) pg/mL - Imaging and Cardiology EKG: image reviewed Chest x-ray: image reviewed Assessment and Plan Assessment COPD exacerbation A. fib Coronary artery disease Hypertension Thrombocytopenia Plan Admit medicine Start high-dose steroids, nebulizer treatments Check cardiac enzymes, continue appropriate outpatient medications DVT prophylaxis
[2017-12-26 02:09] LABS: Creatine Kinase MB 2.8 ng/mL (0.0-4.0)
[2017-12-26 05:30] LABS: Basophils % (Auto) 0.5 % (0.0-1.8); Eosinophils % (Auto) 0.1 % (0.0-4.3); Hematocrit 43.9 % (30.3-42.9); Hemoglobin 14.5 gm/dl (10.1-14.3); Lymphocytes # (Auto) 0.8 K/mm3 (1.2-5.4); Lymphocytes % (Auto) 23.4 % (13.4-35.0); Mean Corpuscular HGB Conc 33 % (30-34); Mean Corpuscular Hemoglobin 29 pg (28-32); Mean Corpuscular Volume 87 fl (79-97); Monocytes # (Auto) 0.1 K/mm3 (0.0-0.8); Monocytes % (Auto) 2.1 % (0.0-7.3); Red Blood Count 5.04 M/mm3 (3.65-5.03); Red Cell Distribution Width 15.7 % (13.2-15.2)
[2017-12-26 05:37] LABS: Platelet Count 93 K/mm3 (140-440)
[2017-12-26 05:54] LABS: Calcium 8.6 mg/dL (8.4-10.2)
[2017-12-26] MEDS: LOPRESSOR PO SCH ×3 (08:13→22:00)
[2017-12-26 08:27] LABS: Creatine Kinase MB 3.2 ng/mL (0.0-4.0)
[2017-12-26] MEDS: celeXA PO SCH (09:37)
[2017-12-26] MEDS: LASIX PO SCH (09:37)
[2017-12-26] MEDS: ELIQUIS PO SCH ×2 (09:37→21:59)
[2017-12-26] MEDS: SODIUM CHLORIDE FLUSH SYRINGE 10 ML IV SCH ×2 (09:37→22:00)
[2017-12-26] MEDS ORDERED: LOVENOX SUB-Q SCH (10:00)
[2017-12-26] MEDS: SODIUM CHLORIDE FLUSH SYRINGE 10 ML IV PRN ×2 (12:17→17:31)
--- NOTE | 2017-12-26 13:13 | Progress Note ---
<GUILHERME DALLAS - Last Filed: 12/26/17 15:36> Assessment and Plan Assessment and plan: 72-year-old woman history of coronary artery disease, A. fib, COPD, hypertension comes emergency room with complaints of shortness of breath that started one day prior to admission COPD exacerbation Improving, patient will continue high-dose steroids, nebulizer treatments Combined systolic and diastolic CHF Cont diuresis, beta blockers A. fib Rate controlled, on Eliquis Coronary artery disease Continue Statin therapy Hypertension BP controlled, continue current regimen Thrombocytopenia Chronic DVT prophylaxis Pt on Eliquis History Interval history: Patient seen and examined. Feeling better today. Labs and nursing notes reviewed. Hospitalist Physical - Physical exam Narrative exam: General appearance: Present: no acute distress, well-nourished - EENT Eyes: Present: PERRL, EOM intact ENT: hearing intact, clear oral mucosa - Neck Present: supple, normal ROM - Respiratory Respiratory effort: normal Respiratory: bilateral: CTA - Cardiovascular Rhythm: regular Heart Sounds: Present: S1 & S2 - Extremities Extremities: no ischemia, No edema - Abdominal General gastrointestinal: soft, non-tender, non-distended - Integumentary Integumentary: Present: clear, warm, dry - Psychiatric Psychiatric: appropriate mood/affect, intact judgment & insight, cooperative - Neurologic Neurologic: CNII-XII intact, moves all extremities - Constitutional Vitals: Temp Pulse Resp BP Pulse Ox 98.0 F 67 20 121/88 98 12/26/17 07:21 12/26/17 08:13 12/26/17 10:00 12/26/17 08:13 12/26/17 10:03 Results - Labs CBC & Chem 7: 12/26/17 05:09 12/26/17 05:09 Labs: Laboratory Last Values WBC 3.5 K/mm3 (4.5-11.0) L 12/26/17 05:09 RBC 5.04 M/mm3 (3.65-5.03) H 12/26/17 05:09 Hgb 14.5 gm/dl (10.1-14.3) H 12/26/17 05:09 Hct 43.9 % (30.3-42.9) H 12/26/17 05:09 MCV 87 fl (79-97) 12/26/17 05:09 MCH 29 pg (28-32) 12/26/17 05:09 MCHC 33 % (30-34) 12/26/17 05:09 RDW 15.7 % (13.2-15.2) H 12/26/17 05:09 Plt Count 93 K/mm3 (140-440) L 12/26/17 05:09 Lymph % (Auto) 23.4 % (13.4-35.0) 12/26/17 05:09 [place] % (Auto) 2.1 % (0.0-7.3) 12/26/17 05:09 Eos % (Auto) 0.1 % (0.0-4.3) 12/26/17 05:09 Baso % (Auto) 0.5 % (0.0-1.8) 12/26/17 05:09 Lymph # 0.8 K/mm3 (1.2-5.4) L 12/26/17 05:09 [place] # 0.1 K/mm3 (0.0-0.8) 12/26/17 05:09 Eos # 0.0 K/mm3 (0.0-0.4) 12/26/17 05:09 Baso # 0.0 K/mm3 (0.0-0.1) 12/26/17 05:09 Seg Neutrophils % 73.9 % (40.0-70.0) H 12/26/17 05:09 Seg Neutrophils # 2.6 K/mm3 (1.8-7.7) 12/26/17 05:09 PT 16.1 Sec. (12.2-14.9) H 12/25/17 18:54 INR 1.22 (0.87-1.13) H 12/25/17 18:54 APTT 30.0 Sec. (24.2-36.6) 12/25/17 18:54 POC ABG pH 7.485 (7.35-7.45) H 12/25/17 19:09 POC ABG pCO2 30.7 (35-45) L 12/25/17 19:09 POC ABG pO2 57 (80-105) L 12/25/17 19:09 POC ABG HCO3 23.1 12/25/17 19:09 POC ABG Total CO2 24 12/25/17 19:09 POC ABG O2 Sat 92 12/25/17 19:09 POC ABG Base Excess 0 12/25/17 19:09 FiO2 36 % 12/25/17 19:09 Sodium 140 mmol/L (137-145) 12/26/17 05:09 Potassium 3.6 mmol/L (3.6-5.0) 12/26/17 05:09 Chloride 99.2 mmol/L (98-107) 12/26/17 05:09 Carbon Dioxide 22 mmol/L (22-30) 12/26/17 05:09 Anion Gap 22 mmol/L 12/26/17 05:09 BUN 22 mg/dL (7-17) H 12/26/17 05:09 Creatinine 1.1 mg/dL (0.7-1.2) 12/26/17 05:09 Estimated GFR 49 ml/min 12/26/17 05:09 BUN/Creatinine Ratio 20 % 12/26/17 05:09 Glucose 190 mg/dL (65-100) H 12/26/17 05:09 Lactic Acid 1.10 mmol/L (0.7-2.0) 12/25/17 19:04 Calcium 8.6 mg/dL (8.4-10.2) 12/26/17 05:09 Total Creatine Kinase 63 units/L (30-135) 12/26/17 05:09 CK-MB (CK-2) 3.2 ng/mL (0.0-4.0) 12/26/17 05:09 CK-MB (CK-2) Rel Index 5.0 (0-4) H 12/26/17 05:09 Troponin T < 0.010 ng/mL (0.00-0.029) 12/26/17 05:09 NT-Pro-B Natriuret Pep 49277 pg/mL (0-900) H 12/25/17 18:54 <AMANDO ARNDT - Last Filed: 12/26/17 18:46> History Interval history: I saw and evaluated the patient. I agree with the findings and the plan of care as documented in the Nurse Practitioner's~note, with the following corrections and additions. Hospitalist Physical - Constitutional Vitals: Temp Pulse Resp BP Pulse Ox 97.8 F 74 20 99/51 97 12/26/17 13:38 12/26/17 13:57 12/26/17 13:38 12/26/17 13:57 12/26/17 13:38 Results - Labs CBC & Chem 7: 12/26/17 05:09 12/26/17 05:09 Labs: Laboratory Last Values WBC 3.5 K/mm3 (4.5-11.0) L 12/26/17 05:09 RBC 5.04 M/mm3 (3.65-5.03) H 12/26/17 05:09 Hgb 14.5 gm/dl (10.1-14.3) H 12/26/17 05:09 Hct 43.9 % (30.3-42.9) H 12/26/17 05:09 MCV 87 fl (79-97) 12/26/17 05:09 MCH 29 pg (28-32) 12/26/17 05:09 MCHC 33 % (30-34) 12/26/17 05:09 RDW 15.7 % (13.2-15.2) H 12/26/17 05:09 Plt Count 93 K/mm3 (140-440) L 12/26/17 05:09 Lymph % (Auto) 23.4 % (13.4-35.0) 12/26/17 05:09 [place] % (Auto) 2.1 % (0.0-7.3) 12/26/17 05:09 Eos % (Auto) 0.1 % (0.0-4.3) 12/26/17 05:09 Baso % (Auto) 0.5 % (0.0-1.8) 12/26/17 05:09 Lymph # 0.8 K/mm3 (1.2-5.4) L 12/26/17 05:09 [place] # 0.1 K/mm3 (0.0-0.8) 12/26/17 05:09 Eos # 0.0 K/mm3 (0.0-0.4) 12/26/17 05:09 Baso # 0.0 K/mm3 (0.0-0.1) 12/26/17 05:09 Seg Neutrophils % 73.9 % (40.0-70.0) H 12/26/17 05:09 Seg Neutrophils # 2.6 K/mm3 (1.8-7.7) 12/26/17 05:09 PT 16.1 Sec. (12.2-14.9) H 12/25/17 18:54 INR 1.22 (0.87-1.13) H 12/25/17 18:54 APTT 30.0 Sec. (24.2-36.6) 12/25/17 18:54 POC ABG pH 7.485 (7.35-7.45) H 12/25/17 19:09 POC ABG pCO2 30.7 (35-45) L 12/25/17 19:09 POC ABG pO2 57 (80-105) L 12/25/17 19:09 POC ABG HCO3 23.1 12/25/17 19:09 POC ABG Total CO2 24 12/25/17 19:09 POC ABG O2 Sat 92 12/25/17 19:09 POC ABG Base Excess 0 12/25/17 19:09 FiO2 36 % 12/25/17 19:09 Sodium 140 mmol/L (137-145) 12/26/17 05:09 Potassium 3.6 mmol/L (3.6-5.0) 12/26/17 05:09 Chloride 99.2 mmol/L (98-107) 12/26/17 05:09 Carbon Dioxide 22 mmol/L (22-30) 12/26/17 05:09 Anion Gap 22 mmol/L 12/26/17 05:09 BUN 22 mg/dL (7-17) H 12/26/17 05:09 Creatinine 1.1 mg/dL (0.7-1.2) 12/26/17 05:09 Estimated GFR 49 ml/min 12/26/17 05:09 BUN/Creatinine Ratio 20 % 12/26/17 05:09 Glucose 190 mg/dL (65-100) H 12/26/17 05:09 Lactic Acid 1.10 mmol/L (0.7-2.0) 12/25/17 19:04 Calcium 8.6 mg/dL (8.4-10.2) 12/26/17 05:09 Total Creatine Kinase 63 units/L (30-135) 12/26/17 05:09 CK-MB (CK-2) 3.2 ng/mL (0.0-4.0) 12/26/17 05:09 CK-MB (CK-2) Rel Index 5.0 (0-4) H 12/26/17 05:09 Troponin T < 0.010 ng/mL (0.00-0.029) 12/26/17 05:09 NT-Pro-B Natriuret Pep 64175 pg/mL (0-900) H 12/25/17 18:54
[2017-12-26] MEDS ORDERED: PRAVACHOL PO SCH (22:00)
--- NOTE | 2017-12-27 08:48 | Progress Note ---
Hospitalist Physical - Constitutional Vitals: Temp Pulse Resp BP Pulse Ox 97.6 F 65 18 101/67 97 12/26/17 20:50 12/26/17 22:00 12/26/17 22:00 12/26/17 22:00 12/26/17 22:00 Results - Labs CBC & Chem 7: 12/26/17 05:09 12/26/17 05:09 Labs: Laboratory Last Values WBC 3.5 K/mm3 (4.5-11.0) L 12/26/17 05:09 RBC 5.04 M/mm3 (3.65-5.03) H 12/26/17 05:09 Hgb 14.5 gm/dl (10.1-14.3) H 12/26/17 05:09 Hct 43.9 % (30.3-42.9) H 12/26/17 05:09 MCV 87 fl (79-97) 12/26/17 05:09 MCH 29 pg (28-32) 12/26/17 05:09 MCHC 33 % (30-34) 12/26/17 05:09 RDW 15.7 % (13.2-15.2) H 12/26/17 05:09 Plt Count 93 K/mm3 (140-440) L 12/26/17 05:09 Lymph % (Auto) 23.4 % (13.4-35.0) 12/26/17 05:09 [place] % (Auto) 2.1 % (0.0-7.3) 12/26/17 05:09 Eos % (Auto) 0.1 % (0.0-4.3) 12/26/17 05:09 Baso % (Auto) 0.5 % (0.0-1.8) 12/26/17 05:09 Lymph # 0.8 K/mm3 (1.2-5.4) L 12/26/17 05:09 [place] # 0.1 K/mm3 (0.0-0.8) 12/26/17 05:09 Eos # 0.0 K/mm3 (0.0-0.4) 12/26/17 05:09 Baso # 0.0 K/mm3 (0.0-0.1) 12/26/17 05:09 Seg Neutrophils % 73.9 % (40.0-70.0) H 12/26/17 05:09 Seg Neutrophils # 2.6 K/mm3 (1.8-7.7) 12/26/17 05:09 PT 16.1 Sec. (12.2-14.9) H 12/25/17 18:54 INR 1.22 (0.87-1.13) H 12/25/17 18:54 APTT 30.0 Sec. (24.2-36.6) 12/25/17 18:54 POC ABG pH 7.485 (7.35-7.45) H 12/25/17 19:09 POC ABG pCO2 30.7 (35-45) L 12/25/17 19:09 POC ABG pO2 57 (80-105) L 12/25/17 19:09 POC ABG HCO3 23.1 12/25/17 19:09 POC ABG Total CO2 24 12/25/17 19:09 POC ABG O2 Sat 92 12/25/17 19:09 POC ABG Base Excess 0 12/25/17 19:09 FiO2 36 % 12/25/17 19:09 Sodium 140 mmol/L (137-145) 12/26/17 05:09 Potassium 3.6 mmol/L (3.6-5.0) 12/26/17 05:09 Chloride 99.2 mmol/L (98-107) 12/26/17 05:09 Carbon Dioxide 22 mmol/L (22-30) 12/26/17 05:09 Anion Gap 22 mmol/L 12/26/17 05:09 BUN 22 mg/dL (7-17) H 12/26/17 05:09 Creatinine 1.1 mg/dL (0.7-1.2) 12/26/17 05:09 Estimated GFR 49 ml/min 12/26/17 05:09 BUN/Creatinine Ratio 20 % 12/26/17 05:09 Glucose 190 mg/dL (65-100) H 12/26/17 05:09 Lactic Acid 1.10 mmol/L (0.7-2.0) 12/25/17 19:04 Calcium 8.6 mg/dL (8.4-10.2) 12/26/17 05:09 Total Creatine Kinase 63 units/L (30-135) 12/26/17 05:09 CK-MB (CK-2) 3.2 ng/mL (0.0-4.0) 12/26/17 05:09 CK-MB (CK-2) Rel Index 5.0 (0-4) H 12/26/17 05:09 Troponin T < 0.010 ng/mL (0.00-0.029) 12/26/17 05:09 NT-Pro-B Natriuret Pep 89628 pg/mL (0-900) H 12/25/17 18:54
[2017-12-27] MEDS: LOPRESSOR PO SCH (09:03)
[2017-12-27] MEDS: SODIUM CHLORIDE FLUSH SYRINGE 10 ML IV SCH (09:52)
[2017-12-27] MEDS: celeXA PO SCH (09:52)
[2017-12-27] MEDS: LASIX PO SCH (09:52)
[2017-12-27] MEDS: ELIQUIS PO SCH (09:52)
[2017-12-27 13:47] VITALS: BP 97/68
--- NOTE | 2017-12-27 14:05 | Discharge Summary ---
Providers - Providers Date of Admission: 12/25/17 22:30 Date of discharge: 12/27/17 Attending physician: AMANDO ARNDT Primary care physician: PRODUCT DELIVERY SPECIALIST Hospitalization Condition: Serious Disposition: DC-01 TO HOME OR SELFCARE Time spent for discharge: 31 min Core Measure Documentation - Palliative Care Palliative Care/ Comfort Measures: Not Applicable - Core Measures Any of the following diagnoses?: none Exam - Constitutional Vitals: Temp Pulse Resp BP Pulse Ox 98.0 F 75 20 97/68 96 12/27/17 13:13 12/27/17 13:14 12/27/17 13:13 12/27/17 13:14 12/27/17 13:22 General appearance: Present: no acute distress, well-nourished, cachectic - EENT Eyes: Present: PERRL, EOM intact - Neck Neck: Present: supple, normal ROM - Respiratory Respiratory effort: normal Respiratory: bilateral: diminished, negative: rales, rhonchi, wheezing - Cardiovascular Rhythm: regular Heart Sounds: Present: S1 & S2 - Extremities Extremities: no ischemia, No edema - Abdominal General gastrointestinal: Present: soft, non-tender, non-distended, normal bowel sounds - Integumentary Integumentary: Present: clear, warm - Musculoskeletal Musculoskeletal: strength equal bilaterally, generalized weakness - Psychiatric Psychiatric: appropriate mood/affect, cooperative - Neurologic Neurologic: CNII-XII intact, moves all extremities Plan Activity: advance as tolerated, fall precautions Diet: low salt Additional Instructions: Fall precautions. If you have chest pain or shortness of breath, contact M.D. or go to emergency room Follow up with: PRIMARY CARE, [Primary Care Provider] - 3-5 Days Prescriptions: guaiFENesin [Cough Syrup] 100 mg PO Q4H PRN #1 bottle PRN Reason: Cough Levofloxacin [Levaquin] 250 mg PO QDAY #5 tablet Prednisone [predniSONE 5 mg (6-Day Pack, 21 Tabs)] 5 mg PO .TAPER #1 tab.ds.pk
== END 2017-12-27 17:19 | disposition home or self-care (01) | DRG 291 ==
LOC: ED 18:17 → 2B-ACE 22:30
PROVIDERS: ADMIT Internal Medicine; ATTEND Internal Medicine
PROC: 4A033R1 Measurement of Arterial Saturation, Peripheral, Percutaneous Approach (ICD-10-PCS; principal; 2017-12-25)
DX: I11.0 Hypertensive heart disease with heart failure (principal); J96.01 Acute respiratory failure with hypoxia; J44.1 Chronic obstructive pulmonary disease with (acute) exacerbation; I50.43 Acute on chronic combined systolic (congestive) and diastolic (congestive) heart failure; F17.210 Nicotine dependence, cigarettes, uncomplicated; D69.6 Thrombocytopenia, unspecified; I25.10 Atherosclerotic heart disease of native coronary artery without angina pectoris; I48.91 Unspecified atrial fibrillation; I25.2 Old myocardial infarction; Z82.49 Family history of ischemic heart disease and other diseases of the circulatory system
CPT/HCPCS: 36415; 71045; 80048; 82140; 82550; 82553; 82803; 83880; 84484; 85025; 85610; 85730; 87040; 93005; 93010; 94760; 96374; 96375; A9270-GY; J1940; J2930

== ENCOUNTER 2018-01-28 13:28 | Inpatient (IN) | payer MEDICARE ==
--- NOTE | 2018-01-28 14:27 | XRay Report ---
FINAL REPORT PROCEDURE: XR CHEST 1V AP TECHNIQUE: Chest radiograph anteroposterior view. CPT 23330 HISTORY: SOB COMPARISON: 12/26/2017 FINDINGS: Heart: Prominent cardiac silhouette Mediastinum/Vessels: Normal. Lungs/Pleural space: No infiltrate, effusion, or pneumothorax. Bony thorax: No acute osseous abnormality. Life support devices: None. IMPRESSION: Stable prominent cardiac silhouette.
[2018-01-28 14:33] LABS: Basophils % (Auto) 0.3 % (0.0-1.8); Eosinophils % (Auto) 0.2 % (0.0-4.3); Hematocrit 40.3 % (30.3-42.9); Hemoglobin 13.4 gm/dl (10.1-14.3); Lymphocytes # (Auto) 1.6 K/mm3 (1.2-5.4); Lymphocytes % (Auto) 28.8 % (13.4-35.0); Mean Corpuscular HGB Conc 33 % (30-34); Mean Corpuscular Hemoglobin 30 pg (28-32); Mean Corpuscular Volume 91 fl (79-97); Monocytes # (Auto) 0.3 K/mm3 (0.0-0.8); Platelet Count 147 K/mm3 (140-440); Red Blood Count 4.45 M/mm3 (3.65-5.03); Red Cell Distribution Width 16.8 % (13.2-15.2)
[2018-01-28] MEDS ORDERED: DUONEB *Not for PRN Use IH ONE (14:39)
[2018-01-28] MEDS ORDERED: CARDIZEM IV ONE (14:41)
--- NOTE | 2018-01-28 14:46 | Emergency Department Report ---
HPI - General Chief Complaint: Dyspnea/Respdistress Time Seen by Provider: 01/28/18 13:49 - HPI HPI: The patient is 72-year-old female with a significant history of atrial fibrillation, CHF, COPD, who presents for evaluation of dyspnea. The patient reports constant and severe dyspnea since last night, greater than 12 hours prior to my evaluation, progressive, severe since this morning, exacerbated with physical activity or exertion. She admits to a nonproductive cough and some mild bilateral lower leg swelling. The patient denies fever, trauma to the chest, chest pain, syncope, hemoptysis, unilateral leg swelling, recent immobilization. ED Past Medical Hx - Past Medical History Previous Medical History?: Yes Hx Hypertension: Yes Hx Heart Attack/AMI: Yes Hx Congestive Heart Failure: Yes (card cath ef 40-45%, minimal coronary irregularities) Hx COPD: Yes Additional medical history: pneumonia. Atrial fibrillation. Dilated cardiomyopathy - Surgical History Past Surgical History?: Yes Hx Breast Surgery: Yes Additional Surgical History: breast surgery - Social History Smoking Status: Current Every Day Smoker Substance Use Type: None - Medications Home Medications: Home Medications Medication Instructions Recorded Confirmed Last Taken Type ALBUTEROL NEB's [Proventil 0.083% 2.5 mg IH Q4HRT PRN #60 nebu 10/09/17 Unknown Rx NEBS] Apixaban [Eliquis] 5 mg PO Q12HR #60 tablet 10/09/17 12/27/17 Unknown Rx Citalopram [Celexa] 20 mg PO QDAY #30 tablet 10/09/17 12/27/17 Unknown Rx Furosemide [Lasix TAB] 20 mg PO QDAY #10 tablet 10/09/17 12/27/17 Unknown Rx Ipratropium/Albuterol Sulfate 1 ampul IH Q6HR #60 ampul.neb 10/09/17 12/27/17 Unknown Rx [DUONEB *Not for PRN Use*] Lovastatin [Altoprev] 20 mg PO QPM #30 tab.er.24h 10/09/17 12/27/17 Unknown Rx Metoprolol [Lopressor TAB] 25 mg PO TID #90 tablet 10/09/17 12/27/17 Unknown Rx Nebulizer and Compressor [Portable 1 each MC QID #1 each 10/09/17 12/27/17 Unknown Rx Nebulizer System] Spironolactone [Aldactone] 25 mg PO QDAY #30 tablet 10/09/17 12/27/17 Unknown Rx Levofloxacin [Levaquin] 250 mg PO QDAY #5 tablet 12/27/17 Unknown Rx Prednisone [predniSONE 5 mg (6-Day 5 mg PO .TAPER #1 tab.ds.pk 12/27/17 Unknown Rx Pack, 21 Tabs)] guaiFENesin [Cough Syrup] 100 mg PO Q4H PRN #1 bottle 12/27/17 Unknown Rx ED Review of Systems ROS: Stated complaint: DIFFICULTY BREATHING Other details as noted in HPI Constitutional: denies: fever ENT: denies: throat or neck pain Respiratory: reports: cough, shortness of breath Cardiovascular: denies: chest pain Endocrine: denies unexplained weight loss or gain Gastrointestinal: denies: abdominal pain, nausea Genitourinary: denies: dysuria Musculoskeletal: denies: leg swelling Skin: denies: rash Neurological: denies: headache Hematological/Lymphatic: denies: easy bleeding or easy bruising Psych: denies sadness or hopelessness Physical Exam - Physical Exam Vital Signs: Vital Signs 01/28/18 13:36 Temperature 97.7 F Pulse Rate 110 H Respiratory 30 H Rate Blood Pressure 182/102 O2 Sat by Pulse 96 Oximetry Physical Exam: General: well-nourished, well-developed, no acute distress Head: Normocephalic, atraumatic Eyes: normal sclera ENT: Mucous membranes are pink and moist Neck: trachea midline, neck supple, No neck stiffness, no cervical adenopathy Respiratory: Diminished breath sounds in wheezing present throughout lung jimenez bilaterally, rales present to bi-basilar lung jimenez Cardio: S1 and S2 present, no murmurs, rubs, gallops, capillary refill is brisk Abdomen: Normoactive bowel sounds, soft abdomen, no rigidity, no guarding or rebound tenderness Chest WALL/Back: No tenderness to palpation of the chest wall, no CVA tenderness with percussion Musc: No pitting edema Skin: No rash Neuro: no facial drooping, normal speech Psych: Normal affect ED Course Vital Signs 01/28/18 13:36 Temperature 97.7 F Pulse Rate 110 H Respiratory 30 H Rate Blood Pressure 182/102 O2 Sat by Pulse 96 Oximetry ED Medical Decision Making - Lab Data Result diagrams: 01/28/18 14:05 - Medical Decision Making The patient was seen and examined by myself. The patient is placed on a monitor worker and continuous pulse ox. On initial evaluation, the patient was found to be in no distress, although with significant tachycardia and tachypnea. EKG was obtained and revealed irregularly irregular narrow QRS complex tachycardia, consistent with acutea-fib with RVR. The patient is given IV Cardizem and started on IV Cardizem infusion. The patient is given a DuoNeb breathing treatment and I decided Medrol for treatment of her COPD exacerbation. She is also given IV Lasix. Multiple bedside reassessments performed to assess patient responsiveness to infusion antiarrhythmic. Labs and imaging are obtained. Chest x-ray is negative for emergency disease process. Lab results revealed elevated BNP, and otherwise are grossly unrevealing. The on -call hospitalist service was contacted. They agreed to admit the patient for further treatment and close monitoring. The ED admit order was placed. The patient was admitted in guarded condition. Critical Care Time: Yes Critical care time in (mins) excluding proc time.: 35 Critical care attestation.: Due to the critical nature of this patients presentation, which necessitated multiple bedside assessments, manipulation and supportive measures to prevent further life threatening deterioration, I would like to bill for a total of 35 minutes of critical care time. This was exclusive of any separately billable procedures. Critical Care Time: 35 minutes ED Disposition Clinical Impression: Atrial fibrillation with RVR, Acute exacerbation of chronic obstructive pulmonary disease (COPD), Hypertensive urgency Disposition: DC-09 OP ADMIT IP TO THIS HOSP Is pt being admited?: Yes Does the pt Need Aspirin: Yes Condition: Critical Instructions: Chronic Obstructive Pulmonary Disease (ED) Time of Disposition: 14:42
[2018-01-28] MEDS ORDERED: BABY ASPIRIN PO ONE (14:51)
[2018-01-28 14:56] LABS: Calcium 9.3 mg/dL (8.4-10.2)
[2018-01-28] MEDS ORDERED: CARDIZEM/D5W 100MG/100ML 100 MG/100 ML BAG IV SCH (15:00)
[2018-01-28 15:24] LABS: INR 1.02 (0.87-1.13)
[2018-01-28 15:25] LABS: Partial Thromboplastin Time 27.8 Sec. (24.2-36.6)
[2018-01-28] MEDS ORDERED: MORPHINE IV PRN (19:34)
[2018-01-28] MEDS ORDERED: AMBIEN PO PRN (19:34)
[2018-01-28] MEDS ORDERED: SODIUM CHLORIDE FLUSH SYRINGE 10 ML IV PRN (19:34)
[2018-01-28] MEDS ORDERED: ZOFRAN IV PRN (19:34)
[2018-01-28] MEDS ORDERED: PERCOCET 5/325 PO PRN (19:34)
[2018-01-28] MEDS ORDERED: TYLENOL PO PRN (19:34)
--- NOTE | 2018-01-28 19:34 | History and Physical Report ---
History of Present Illness Date of examination: 01/28/18 Date of admission: 01/28/18 17:24 Chief complaint: SoB and Palpitations for one day History of present illness: LOWER BRULE The patient is 72-year-old female with a significant history of atrial fibrillation, CHF, COPD, who presents for evaluation of dyspnea. The patient reports constant and severe dyspnea since last night, greater than 12 hours prior to my evaluation, progressive, severe since this morning, exacerbated with physical activity or exertion. She admits to a nonproductive cough and some mild bilateral lower leg swelling. The patient denies fever, trauma to the chest, chest pain, syncope, hemoptysis, unilateral leg swelling, recent immobilization. Also orthopnea present. Past Medical History Previous Medical History?: Yes Hx Hypertension: Yes Hx Heart Attack/AMI: Yes Hx Congestive Heart Failure: Yes (card cath ef 40-45%, minimal coronary irregularities) Hx COPD: Yes Additional medical history: pneumonia. Atrial fibrillation. Dilated cardiomyopathy Surgical History Past Surgical History?: Yes Hx Breast Surgery: Yes Additional Surgical History: breast surgery Social History Smoking Status: Current Every Day Smoker Substance Use Type: None Medications Home Medications: Home Medications Medication Instructions Recorded Confirmed Last Taken Type ALBUTEROL NEB's [Proventil 0.083% 2.5 mg IH Q4HRT PRN #60 nebu 10/09/17 Unknown Rx NEBS] Apixaban [Eliquis] 5 mg PO Q12HR #60 tablet 10/09/17 12/27/17 Unknown Rx Citalopram [Celexa] 20 mg PO QDAY #30 tablet 10/09/17 12/27/17 Unknown Rx Furosemide [Lasix TAB] 20 mg PO QDAY #10 tablet 10/09/17 12/27/17 Unknown Rx Ipratropium/Albuterol Sulfate 1 ampul IH Q6HR #60 ampul.neb 10/09/17 12/27/17 Unknown Rx [DUONEB *Not for PRN Use*] Lovastatin [Altoprev] 20 mg PO QPM #30 tab.er.24h 10/09/17 12/27/17 Unknown Rx Metoprolol [Lopressor TAB] 25 mg PO TID #90 tablet 10/09/17 12/27/17 Unknown Rx Nebulizer and Compressor [Portable 1 each MC QID #1 each 10/09/17 12/27/17 Unknown Rx Nebulizer System] Spironolactone [Aldactone] 25 mg PO QDAY #30 tablet 10/09/17 12/27/17 Unknown Rx Levofloxacin [Levaquin] 250 mg PO QDAY #5 tablet 12/27/17 Unknown Rx Prednisone [predniSONE 5 mg (6-Day 5 mg PO .TAPER #1 tab.ds.pk 12/27/17 Unknown Rx Pack, 21 Tabs)] guaiFENesin [Cough Syrup] 100 mg PO Q4H PRN #1 bottle 12/27/17 Unknown Rx Review of Systems ROS: Stated complaint: DIFFICULTY BREATHING Other details as noted in HPI Constitutional: denies: fever ENT: denies: throat or neck pain Respiratory: reports: cough, shortness of breath Cardiovascular: denies: chest pain Endocrine: denies unexplained weight loss or gain Gastrointestinal: denies: abdominal pain, nausea Genitourinary: denies: dysuria Musculoskeletal: denies: leg swelling Skin: denies: rash Neurological: denies: headache Hematological/Lymphatic: denies: easy bleeding or easy bruising Psych: denies sadness or hopelessness 14 point ROS done-Otherwise negative Medications and Allergies Allergies Allergy/AdvReac Type Severity Reaction Status Date / Time No Known Allergies Allergy Verified 08/06/17 04:08 Home Medications Medication Instructions Recorded Confirmed Last Taken Type ALBUTEROL NEB's [Proventil 0.083% 2.5 mg IH Q4HRT PRN #60 nebu 10/09/17 Unknown Rx NEBS] Apixaban [Eliquis] 5 mg PO Q12HR #60 tablet 10/09/17 01/28/18 Unknown Rx Citalopram [Celexa] 20 mg PO QDAY #30 tablet 10/09/17 01/28/18 Unknown Rx Furosemide [Lasix TAB] 20 mg PO QDAY #10 tablet 10/09/17 01/28/18 Unknown Rx Ipratropium/Albuterol Sulfate 1 ampul IH Q6HR #60 ampul.neb 10/09/17 01/28/18 Unknown Rx [DUONEB *Not for PRN Use*] Lovastatin [Altoprev] 20 mg PO QPM #30 tab.er.24h 10/09/17 01/28/18 Unknown Rx Metoprolol [Lopressor TAB] 25 mg PO TID #90 tablet 10/09/17 01/28/18 Unknown Rx Nebulizer and Compressor [Portable 1 each MC QID #1 each 10/09/17 01/28/18 Unknown Rx Nebulizer System] Digoxin [Lanoxin] 0.25 mg PO DAILY 01/28/18 01/28/18 Unknown History Exam - Constitutional Vitals: Temp Pulse Resp BP Pulse Ox 97.7 F 88 31 H 151/94 97 01/28/18 13:36 01/28/18 19:15 01/28/18 19:15 01/28/18 19:15 01/28/18 19:15 General appearance: Present: no acute distress, well-nourished - EENT Eyes: Present: PERRL ENT: hearing intact, clear oral mucosa - Neck Neck: Present: supple, normal ROM - Respiratory Respiratory effort: normal Respiratory: bilateral: CTA - Cardiovascular Heart rate: 110 Rhythm: irregularly irregular Heart Sounds: Present: S1 & S2. Absent: rub, click - Extremities Extremities: no ischemia, pulses intact, pulses symmetrical, No edema Extremity abnormal: other (Pedal edema present) Peripheral Pulses: within normal limits - Abdominal General gastrointestinal: Present: soft, non-tender, non-distended, normal bowel sounds Female genitourinary: Present: normal - Rectal Rectal Exam: deferred - Integumentary Integumentary: Present: clear, warm, dry - Musculoskeletal Musculoskeletal: gait normal, strength equal bilaterally - Psychiatric Psychiatric: appropriate mood/affect, intact judgment & insight - Neurologic Neurologic: CNII-XII intact, moves all extremities - Allied Health Allied health notes reviewed: nursing, case management Results - Labs CBC & Chem 7: 01/29/18 04:58 01/29/18 04:58 Labs: Laboratory Last Values WBC 5.5 K/mm3 (4.5-11.0) 01/28/18 14:05 RBC 4.45 M/mm3 (3.65-5.03) 01/28/18 14:05 Hgb 13.4 gm/dl (10.1-14.3) 01/28/18 14:05 Hct 40.3 % (30.3-42.9) 01/28/18 14:05 MCV 91 fl (79-97) 01/28/18 14:05 MCH 30 pg (28-32) 01/28/18 14:05 MCHC 33 % (30-34) 01/28/18 14:05 RDW 16.8 % (13.2-15.2) H 01/28/18 14:05 Plt Count 147 K/mm3 (140-440) 01/28/18 14:05 Lymph % (Auto) 28.8 % (13.4-35.0) 01/28/18 14:05 Delta % (Auto) 6.0 % (0.0-7.3) 01/28/18 14:05 Eos % (Auto) 0.2 % (0.0-4.3) 01/28/18 14:05 Baso % (Auto) 0.3 % (0.0-1.8) 01/28/18 14:05 Lymph # 1.6 K/mm3 (1.2-5.4) 01/28/18 14:05 Delta # 0.3 K/mm3 (0.0-0.8) 01/28/18 14:05 Eos # 0.0 K/mm3 (0.0-0.4) 01/28/18 14:05 Baso # 0.0 K/mm3 (0.0-0.1) 01/28/18 14:05 Seg Neutrophils % 64.7 % (40.0-70.0) 01/28/18 14:05 Seg Neutrophils # 3.6 K/mm3 (1.8-7.7) 01/28/18 14:05 PT 13.9 Sec. (12.2-14.9) 01/28/18 15:06 INR 1.02 (0.87-1.13) 01/28/18 15:06 APTT 27.8 Sec. (24.2-36.6) 01/28/18 15:06 POC ABG pH 7.483 (7.35-7.45) H 01/28/18 15:43 POC ABG pCO2 30.5 (35-45) L 01/28/18 15:43 POC ABG pO2 50 (80-105) L 01/28/18 15:43 POC ABG HCO3 22.8 01/28/18 15:43 POC ABG Total CO2 24 01/28/18 15:43 POC ABG O2 Sat 88 01/28/18 15:43 POC ABG Base Excess -1 01/28/18 15:43 FiO2 28 % 01/28/18 15:43 Sodium 142 mmol/L (137-145) 01/28/18 14:05 Potassium 4.7 mmol/L (3.6-5.0) 01/28/18 14:05 Chloride 102.9 mmol/L (98-107) 01/28/18 14:05 Carbon Dioxide 25 mmol/L (22-30) 01/28/18 14:05 Anion Gap 19 mmol/L 01/28/18 14:05 BUN 18 mg/dL (7-17) H 01/28/18 14:05 Creatinine 1.0 mg/dL (0.7-1.2) 01/28/18 14:05 Estimated GFR 55 ml/min 01/28/18 14:05 BUN/Creatinine Ratio 18 % 01/28/18 14:05 Glucose 112 mg/dL (65-100) H 01/28/18 14:05 Calcium 9.3 mg/dL (8.4-10.2) 01/28/18 14:05 Troponin T < 0.010 ng/mL (0.00-0.029) 01/28/18 15:06 NT-Pro-B Natriuret Pep 08071 pg/mL (0-900) H 01/28/18 15:06 - Imaging and Cardiology EKG: report reviewed (A fib with rvr) Chest x-ray: report reviewed Imaging and Cardiology: EKG --- irregularly irregular narrow QRS complex tachycardia, consistent with acute a-fib with RVR. CXR-- NAF Assessment and Plan Advance Directives: Yes (Full code) VTE prophylaxis?: Chemical Plan of care discussed with patient/family: Yes - Patient Problems (1) Acute respiratory failure Current Visit: Yes Status: Acute Qualifiers: Respiratory failure complication: hypoxia Qualified Code(s): J96.01 - Acute respiratory failure with hypoxia Plan to address problem: ABG consistent with Hypoxia sec to Chf and COPD Treat CHF and COpd (2) Atrial fibrillation with RVR Current Visit: Yes Status: Acute Plan to address problem: Patient on Cardizem drip To be transitioned to PO Cardizem. Patient on Digoxin and Metoprool Patient on Eliquis (3) Acute on chronic systolic CHF (congestive heart failure) Current Visit: No Status: Acute Plan to address problem: IV Lasix for now Check ECHO for EF and Valve function ON Digoxin (4) COPD (chronic obstructive pulmonary disease) Current Visit: No Status: Chronic Qualifiers: COPD type: unspecified COPD Qualified Code(s): J44.9 - Chronic obstructive pulmonary disease, unspecified Plan to address problem: Cont Duonebs (5) HTN (hypertension) Current Visit: Yes Status: Chronic Qualifiers: Hypertension type: essential hypertension Qualified Code(s): I10 - Essential (primary) hypertension Plan to address problem: Cont antihypertensives (6) DVT prophylaxis Current Visit: Yes Status: Acute Plan to address problem: On Eliquis
[2018-01-28] MEDS ORDERED: PROVENTIL IH PRN (19:36)
[2018-01-28] MEDS: LOPRESSOR PO SCH (21:45)
[2018-01-28] MEDS: LASIX PO SCH (21:45)
[2018-01-28] MEDS: celeXA PO SCH (21:45)
[2018-01-28] MEDS: LANOXIN PO SCH (21:45)
[2018-01-28] MEDS ORDERED: [UNRECOGNIZED DRUG - OTHER] MC SCH (22:00)
[2018-01-28] MEDS: DUONEB *Not for PRN Use IH SCH (22:04)
[2018-01-28] MEDS: SODIUM CHLORIDE FLUSH SYRINGE 10 ML IV SCH (22:28)
[2018-01-28] MEDS: PEPCID PO SCH (22:28)
[2018-01-28] MEDS: ELIQUIS PO SCH (22:28)
[2018-01-29] MEDS: DUONEB *Not for PRN Use IH SCH ×6 (03:55→21:53)
[2018-01-29 05:16] LABS: Basophils % (Auto) 0.5 % (0.0-1.8); Eosinophils % (Auto) 0.1 % (0.0-4.3); Hematocrit 36.7 % (30.3-42.9); Hemoglobin 12.3 gm/dl (10.1-14.3); Lymphocytes # (Auto) 0.6 K/mm3 (1.2-5.4); Lymphocytes % (Auto) 24.7 % (13.4-35.0); Mean Corpuscular HGB Conc 34 % (30-34); Mean Corpuscular Hemoglobin 30 pg (28-32); Mean Corpuscular Volume 90 fl (79-97); Monocytes # (Auto) 0.1 K/mm3 (0.0-0.8); Monocytes % (Auto) 3.5 % (0.0-7.3); Platelet Count 114 K/mm3 (140-440); Red Blood Count 4.08 M/mm3 (3.65-5.03); Red Cell Distribution Width 16.1 % (13.2-15.2)
[2018-01-29 05:26] LABS: Albumin 3.8 g/dL (3.9-5); Calcium 8.4 mg/dL (8.4-10.2)
[2018-01-29] MEDS ORDERED: LASIX IV SCH (07:49)
--- NOTE | 2018-01-29 09:32 | Event Note ---
Date: 01/29/18 This patient's a regular patient of Dr. Robles [facility], please refer to his service for further cardiac consultation and continued care.
[2018-01-29] MEDS: LASIX PO SCH (09:36)
[2018-01-29] MEDS: celeXA PO SCH (09:36)
[2018-01-29] MEDS: PEPCID PO SCH ×2 (09:36→22:34)
[2018-01-29] MEDS: ELIQUIS PO SCH ×2 (09:37→22:34)
[2018-01-29] MEDS: LANOXIN PO SCH (09:37)
[2018-01-29] MEDS: K-DUR PO SCH ×2 (09:37→22:35)
[2018-01-29] MEDS: CARDIZEM PO SCH ×3 (09:38→17:55)
[2018-01-29] MEDS: LOPRESSOR PO SCH (09:39)
[2018-01-29] MEDS: SODIUM CHLORIDE FLUSH SYRINGE 10 ML IV SCH ×2 (09:41→22:34)
--- NOTE | 2018-01-29 11:00 | Consultation ---
History of Present Illness Consult date: 01/29/18 Requesting physician: VU ZARAGOZA Consult reason: shortness of breath History of present illness: The patient is a 71 years old female with past medical history significant for atrial fibrillation (diagnosed 07/2017), NICMP, heart failure, LBBB, hypertension, COPD and tobacco use. pt has sob with exertion and has afib. She has been seen by our practice on prior admissions but has not been compliant with OP follow up. She presented with c/o progressively worsening palpitations, SOB past 4 weeks.pt is poor historian, pt elevated bnp and dig. pt states not feeling well , no fever but cough, and is being treated for copd exaberation and chf. and possible gram negative pna. She denies chest pain, n/v, diaphoresis, dizziness or syncope. She reports compliance with her home medications, including digoxin and Eliquis. [facility] 07/18/2017 showed minimal coronary irregularities, mildly dilated LV with diffuse hypokinesis, EF 40-45%. Echo done 07/15/2017 showed EF 40-45%, trace MR, trace TR, pseudonormalization. Past History Past Medical History: CAD, COPD, hypertension, hyperlipidemia, stroke Past Surgical History: denies: No surgical history Social history: smoking. denies: alcohol abuse Family history: denies: no significant family history Medications and Allergies Allergies Allergy/AdvReac Type Severity Reaction Status Date / Time No Known Allergies Allergy Verified 08/06/17 04:08 Home Medications Medication Instructions Recorded Confirmed Last Taken Type ALBUTEROL NEB's [Proventil 0.083% 2.5 mg IH Q4HRT PRN #60 nebu 10/09/17 Unknown Rx NEBS] Apixaban [Eliquis] 5 mg PO Q12HR #60 tablet 10/09/17 01/28/18 Unknown Rx Citalopram [Celexa] 20 mg PO QDAY #30 tablet 10/09/17 01/28/18 Unknown Rx Furosemide [Lasix TAB] 20 mg PO QDAY #10 tablet 10/09/17 01/28/18 Unknown Rx Ipratropium/Albuterol Sulfate 1 ampul IH Q6HR #60 ampul.neb 10/09/17 01/28/18 Unknown Rx [DUONEB *Not for PRN Use*] Lovastatin [Altoprev] 20 mg PO QPM #30 tab.er.24h 10/09/17 01/28/18 Unknown Rx Metoprolol [Lopressor TAB] 25 mg PO TID #90 tablet 10/09/17 01/28/18 Unknown Rx Nebulizer and Compressor [Portable 1 each MC QID #1 each 10/09/17 01/28/18 Unknown Rx Nebulizer System] Digoxin [Lanoxin] 0.25 mg PO DAILY 01/28/18 01/28/18 Unknown History Active Meds: Active Medications Acetaminophen (Tylenol) 650 mg PO Q4H PRN PRN Reason: Pain MILD(1-3)/Fever >100.5/VAZQUEZ Albuterol (Proventil) 2.5 mg IH Q4HRT PRN PRN Reason: Shortness Of Breath Albuterol/Ipratropium (Duoneb *Not For Prn Use*) 1 ampul IH Q6HR [facility] Last Admin: 01/29/18 07:51 Dose: 1 ampul Apixaban (Eliquis) 5 mg PO Q12HR [facility]; Protocol Last Admin: 01/29/18 09:37 Dose: 5 mg Citalopram Hydrobromide (Celexa) 20 mg PO QDAY [facility] Last Admin: 01/29/18 09:36 Dose: 20 mg Digoxin (Lanoxin) 0.25 mg PO DAILY [facility] Last Admin: 01/29/18 09:37 Dose: 0.25 mg Diltiazem HCl (Cardizem) 30 mg PO Q6HR [facility] Last Admin: 01/29/18 09:38 Dose: Not Given Famotidine (Pepcid) 20 mg PO BID [facility] Last Admin: 01/29/18 09:36 Dose: 20 mg Furosemide (Lasix) 20 mg PO QDAY [facility] Last Admin: 01/29/18 09:36 Dose: 20 mg Morphine Sulfate (Morphine) 2 mg IV Q4H PRN PRN Reason: Pain, Moderate (4-6) Ondansetron HCl (Zofran) 4 mg IV Q8H PRN PRN Reason: Nausea And Vomiting Oxycodone/Acetaminophen (Percocet 5/325) 1 tab PO Q6H PRN PRN Reason: Pain, Moderate (4-6) Potassium Chloride (K-Dur) 20 meq PO Q12H [facility] Last Admin: 01/29/18 09:37 Dose: 20 meq Pravastatin Sodium (Pravachol) 20 mg PO QPM [facility] Sodium Chloride (Sodium Chloride Flush Syringe 10 Ml) 10 ml IV BID [facility] Last Admin: 01/29/18 09:41 Dose: 10 ml Sodium Chloride (Sodium Chloride Flush Syringe 10 Ml) 10 ml IV PRN PRN PRN Reason: LINE FLUSH Zolpidem Tartrate (Ambien) 5 mg PO QHS PRN PRN Reason: Insomnia Review of Systems All systems: negative (hpi) Physical Examination Vital Signs Temp Pulse Resp BP Pulse Ox 97.7 F 110 H 30 H 182/102 96 01/28/18 13:36 01/28/18 13:36 01/28/18 13:36 01/28/18 13:36 01/28/18 13:36 General appearance: no acute distress, cachectic HEENT: Positive: PERRL, EOMI Neck: Positive: neck supple, trachea midline Cardiac: Positive: Reg Rate and Rhythm Lungs: Positive: clear to auscultation Neuro: Positive: Grossly Intact Abdomen: Positive: Soft Female genitourinary: normal Extremities: Present: normal. Absent: edema Results 01/29/18 04:58 01/29/18 04:58 Cardiac Enzymes 01/29/18 Range/Units 04:58 AST 21 (5-40) units/L Coagulation 01/28/18 Range/Units 15:06 PT 13.9 (12.2-14.9) Sec. INR 1.02 (0.87-1.13) APTT 27.8 (24.2-36.6) Sec. CBC 01/28/18 01/29/18 Range/Units 14:05 04:58 WBC 5.5 2.6 L (4.5-11.0) K/mm3 RBC 4.45 4.08 (3.65-5.03) M/mm3 Hgb 13.4 12.3 (10.1-14.3) gm/dl Hct 40.3 36.7 (30.3-42.9) % Plt Count 147 114 L (140-440) K/mm3 Lymph # 1.6 0.6 L (1.2-5.4) K/mm3 [place] # 0.3 0.1 (0.0-0.8) K/mm3 Eos # 0.0 0.0 (0.0-0.4) K/mm3 Baso # 0.0 0.0 (0.0-0.1) K/mm3 Comprehensive Metabolic Panel 01/28/18 01/29/18 Range/Units 14:05 04:58 Sodium 142 140 (137-145) mmol/L Potassium 4.7 3.9 (3.6-5.0) mmol/L Chloride 102.9 101.4 (98-107) mmol/L Carbon Dioxide 25 25 (22-30) mmol/L BUN 18 H 23 H (7-17) mg/dL Creatinine 1.0 1.0 (0.7-1.2) mg/dL Glucose 112 H 192 H (65-100) mg/dL Calcium 9.3 8.4 (8.4-10.2) mg/dL AST 21 (5-40) units/L ALT 27 (7-56) units/L Alkaline Phosphatase 72 (35-129) units/L Total Protein 5.9 L (6.3-8.2) g/dL Albumin 3.8 L (3.9-5) g/dL - Imaging and Cardiology Echo: report reviewed (Echo done 07/15/2017 showed EF 40-45%, trace MR, trace TR , pseudonormalization. ) Cardiac cath: other ([facility] 07/18/2017 showed minimal coronary irregularities, mildly dilated LV with diffuse hypokinesis, EF 40-45%. ) EKG interpretations - Telemetry EKG Rhythm: Atrial Fibrillation (afib lbbb) Assessment and Plan acute respiratory failure acute copd exacerbation afib lbbb malnutrition hypocouguable acute on chronic systolic heart failure rec: cont elquis and cont cardizem 30mg q6 and dig and check echo
--- NOTE | 2018-01-29 11:44 | Progress Note ---
Assessment and Plan (1) Acute respiratory failure Current Visit: Yes Status: Acute Qualifiers: Respiratory failure complication: hypoxia Qualified Code(s): J96.01 - Acute respiratory failure with hypoxia Plan to address problem: ABG consistent with Hypoxia sec to Chf and COPD Treat CHF and COpd (2) Atrial fibrillation with RVR Current Visit: Yes Status: Acute Plan to address problem: Patient on Cardizem drip To be transitioned to PO Cardizem. Patient on Digoxin and Metoprool Patient on Eliquis (3) Acute on chronic systolic CHF (congestive heart failure) Current Visit: No Status: Acute Plan to address problem: IV Lasix for now Check ECHO for EF and Valve function ON Digoxin (4) COPD (chronic obstructive pulmonary disease) Current Visit: No Status: Chronic Qualifiers: COPD type: unspecified COPD Qualified Code(s): J44.9 - Chronic obstructive pulmonary disease, unspecified Plan to address problem: Cont Duonebs (5) HTN (hypertension) Current Visit: Yes Status: Chronic Qualifiers: Hypertension type: essential hypertension Qualified Code(s): I10 - Essential (primary) hypertension Plan to address problem: Cont antihypertensives (6) DVT prophylaxis Current Visit: Yes Status: Acute Plan to address problem: On Eliquis Subjective Date of service: 01/29/18 Principal diagnosis: Acute on chronic systolic heart failure, COPD, Acute respiratory failure Interval history: still having shortness of breath Objective - Exam Narrative Exam: Constitutional: Well-nourished well-developed. In no distress Head: Normocephalic atraumatic Eyes: Pupils are equal round and reactive to light Nose: No enlarged turbinates, no septal deviation. Mouth: Moist mucous membranes. Neck: Supple no thyromegaly. No bruit. No JVD Heart: Regular rate and rhythm, S1-S2 abnormal. No rubs murmurs or gallop Lungs: Decreased auscultation bilaterally no rales or rhonchi Abdomen: Soft, nontender. Bowel sound are present. Extremities: No edema no cyanosis and no clubbing. Neuro: Alert oriented Oriented x3. No focal sensory or motor deficit. Skin: No rashes no hyperemic spots Psychiatry: Euthymic. Calm. - Constitutional Vitals: Vital Signs - 12hr 01/28/18 01/29/18 01/29/18 23:56 00:43 03:50 Temperature 97.4 F L Pulse Rate 64 78 Pulse Rate [ 67 Anterior Bilateral Throughout] Respiratory 18 Rate Respiratory 14 Rate [Anterior Bilateral Throughout] Blood Pressure 140/68 Blood Pressure 140/68 [Left] O2 Sat by Pulse 98 96 Oximetry 01/29/18 01/29/18 01/29/18 03:58 05:41 07:52 Temperature 98.2 F Pulse Rate 61 Pulse Rate [ 70 82 Anterior Bilateral Throughout] Respiratory 18 Rate Respiratory 16 18 Rate [Anterior Bilateral Throughout] Blood Pressure Blood Pressure 117/66 [Left] O2 Sat by Pulse 99 98 Oximetry 01/29/18 01/29/18 01/29/18 08:38 09:00 09:37 Temperature 98.0 F Pulse Rate 72 74 75 Pulse Rate [ Anterior Bilateral Throughout] Respiratory 18 18 Rate Respiratory Rate [Anterior Bilateral Throughout] Blood Pressure 102/73 102/73 Blood Pressure 102/73 [Left] O2 Sat by Pulse 96 97 Oximetry 01/29/18 01/29/18 09:38 09:39 Temperature Pulse Rate 75 75 Pulse Rate [ Anterior Bilateral Throughout] Respiratory Rate Respiratory Rate [Anterior Bilateral Throughout] Blood Pressure 102/73 102/73 Blood Pressure [Left] O2 Sat by Pulse Oximetry - Labs CBC & Chem 7: 01/29/18 04:58 01/29/18 04:58 Labs: Abnormal lab results 01/28/18 01/28/18 01/28/18 Range/Units 14:05 14:05 15:06 WBC (4.5-11.0) K/mm3 RDW 16.8 H (13.2-15.2) % Plt Count (140-440) K/mm3 Lymph # (1.2-5.4) K/mm3 Seg Neutrophils % (40.0-70.0) % POC ABG pH (7.35-7.45) POC ABG pCO2 (35-45) POC ABG pO2 (80-105) BUN 18 H (7-17) mg/dL Glucose 112 H (65-100) mg/dL NT-Pro-B Natriuret Pep 18854 H (0-900) pg/mL Total Protein (6.3-8.2) g/dL Albumin (3.9-5) g/dL 01/28/18 01/29/18 01/29/18 Range/Units 15:43 04:58 04:58 WBC 2.6 L (4.5-11.0) K/mm3 RDW 16.1 H (13.2-15.2) % Plt Count 114 L (140-440) K/mm3 Lymph # 0.6 L (1.2-5.4) K/mm3 Seg Neutrophils % 71.2 H (40.0-70.0) % POC ABG pH 7.483 H (7.35-7.45) POC ABG pCO2 30.5 L (35-45) POC ABG pO2 50 L (80-105) BUN 23 H (7-17) mg/dL Glucose 192 H (65-100) mg/dL NT-Pro-B Natriuret Pep (0-900) pg/mL Total Protein 5.9 L (6.3-8.2) g/dL Albumin 3.8 L (3.9-5) g/dL
[2018-01-29] MEDS ORDERED: NON-FORMULARY (Lovastatin [Altoprev] 20 MG) PO SCH (18:00)
[2018-01-29] MEDS: PRAVACHOL PO SCH (18:01)
[2018-01-30] MEDS: CARDIZEM PO SCH ×2 (01:27→06:32)
[2018-01-30] MEDS: DUONEB *Not for PRN Use IH SCH ×4 (03:14→19:23)
[2018-01-30 05:43] LABS: Basophils % (Auto) 0.2 % (0.0-1.8); Eosinophils % (Auto) 0.1 % (0.0-4.3); Hematocrit 35.5 % (30.3-42.9); Hemoglobin 12.1 gm/dl (10.1-14.3); Lymphocytes # (Auto) 1.7 K/mm3 (1.2-5.4); Lymphocytes % (Auto) 24.1 % (13.4-35.0); Mean Corpuscular HGB Conc 34 % (30-34); Mean Corpuscular Hemoglobin 30 pg (28-32); Mean Corpuscular Volume 89 fl (79-97); Monocytes # (Auto) 0.6 K/mm3 (0.0-0.8); Monocytes % (Auto) 8.9 % (0.0-7.3); Platelet Count 114 K/mm3 (140-440); Red Blood Count 4.01 M/mm3 (3.65-5.03); Red Cell Distribution Width 16.3 % (13.2-15.2)
[2018-01-30 06:51] LABS: Albumin 3.5 g/dL (3.9-5); Calcium 8.8 mg/dL (8.4-10.2)
[2018-01-30] MEDS: PEPCID PO SCH ×2 (09:48→21:02)
[2018-01-30] MEDS: ELIQUIS PO SCH ×2 (09:48→21:02)
[2018-01-30] MEDS: LASIX PO SCH (09:48)
[2018-01-30] MEDS: celeXA PO SCH (09:48)
[2018-01-30] MEDS: K-DUR PO SCH (09:49)
[2018-01-30] MEDS: SODIUM CHLORIDE FLUSH SYRINGE 10 ML IV SCH ×2 (09:49→21:02)
[2018-01-30] MEDS: LANOXIN PO SCH (09:49)
--- NOTE | 2018-01-30 10:16 | Progress Note ---
Assessment and Plan Assessment: Acute respiratory failure Acute copd exacerbation Chronic atrial fibrillation Left bundle branch block Malnutrition Acute on chronic systolic heart failure H/o CVA Plan: Change cardizem to cardizem CD 120mg daily. Check bilateral LE arterial Dopplers. Will f/u echo results. The patient has been seen in conjunction with Dr. Campos who agrees with the assessment and plan of care. Subjective Date of service: 01/30/18 Principal diagnosis: Acute on chronic systolic heart failure, COPD, Acute respiratory failure Interval history: The patient is resting in bed. No new complaints. Feels better today. Atrial fibrillation with HR 70s on the monitor. Objective Last Vital Signs Temp 98.0 F 01/30/18 07:38 Pulse 74 01/30/18 09:49 Resp 20 01/30/18 09:35 BP 120/71 01/30/18 09:49 Pulse Ox 96 01/30/18 09:31 - Physical Examination General: No Apparent Distress HEENT: Positive: PERRL, EOMI Neck: Positive: neck supple, trachea midline Cardiac: Positive: irregularly irregular, S1/S2 Lungs: Positive: clear to auscultation Neuro: Positive: Grossly Intact Abdomen: Positive: Soft Skin: Positive: Clear. Negative: Rash Extremities: Present: normal, Other (bilateral femoral bruits). Absent: edema - Labs and Meds Cardiac Enzymes 01/30/18 Range/Units 05:25 AST 30 (5-40) units/L CBC 01/30/18 Range/Units 05:25 WBC 7.2 (4.5-11.0) K/mm3 RBC 4.01 (3.65-5.03) M/mm3 Hgb 12.1 (10.1-14.3) gm/dl Hct 35.5 (30.3-42.9) % Plt Count 114 L (140-440) K/mm3 Lymph # 1.7 (1.2-5.4) K/mm3 [place] # 0.6 (0.0-0.8) K/mm3 Eos # 0.0 (0.0-0.4) K/mm3 Baso # 0.0 (0.0-0.1) K/mm3 Comprehensive Metabolic Panel 01/30/18 Range/Units 05:25 Sodium 146 H (137-145) mmol/L Potassium 4.9 D (3.6-5.0) mmol/L Chloride 105.1 (98-107) mmol/L Carbon Dioxide 23 (22-30) mmol/L BUN 27 H (7-17) mg/dL Creatinine 1.1 (0.7-1.2) mg/dL Glucose 89 (65-100) mg/dL Calcium 8.8 (8.4-10.2) mg/dL AST 30 (5-40) units/L ALT 26 (7-56) units/L Alkaline Phosphatase 73 (35-129) units/L Total Protein 6.1 L (6.3-8.2) g/dL Albumin 3.5 L (3.9-5) g/dL - Imaging and Cardiology EKG: report reviewed (A fib with rvr) Echo: report reviewed (Echo done 07/15/2017 showed EF 40-45%, trace MR, trace TR , pseudonormalization. ) Cardiac cath: other ([facility] 07/18/2017 showed minimal coronary irregularities, mildly dilated LV with diffuse hypokinesis, EF 40-45%. ) - Telemetry EKG Rhythm: Atrial Fibrillation
[2018-01-30] MEDS ORDERED: CARDIZEM CD PO SCH (12:00)
--- NOTE | 2018-01-30 16:50 | Progress Note ---
Assessment and Plan Assessment and plan: (1) Acute respiratory failure Current Visit: Yes Status: Acute Qualifiers: Respiratory failure complication: hypoxia Qualified Code(s): J96.01 - Acute respiratory failure with hypoxia Plan to address problem: ABG consistent with Hypoxia sec to Chf and COPD Treat CHF and COpd Discussed with cardiology, await Echo (2) Atrial fibrillation with RVR Current Visit: Yes Status: Acute Plan to address problem: Patient on Cardizem drip To be transitioned to PO Cardizem. Patient on Digoxin and Metoprool Patient on Eliquis (3) Acute on chronic systolic CHF (congestive heart failure) Current Visit: No Status: Acute Plan to address problem: IV Lasix for now Check ECHO for EF and Valve function ON Digoxin (4) COPD (chronic obstructive pulmonary disease) Cont Duonebs (5) HTN (hypertension) * Cont antihypertensives (6) TOBACCO DEPENDANCE * 15 mins discussion about tobacco cessation. still not inclined o quit but will think about it. (7)DVT prophylaxis Current Visit: Yes Status: Acute Plan to address problem: On Eliquis Plan discussed with patient anticipate discharge in am History Interval history: Patient seen and examined in no acute distress. Hospitalist Physical - Physical exam Narrative exam: VITAL SIGNS: Reviewed. GENERAL: The patient appeared well nourished and normally developed. Vital signs as documented. HEAD: No signs of head trauma. EYES: Pupils are equal. Extraocular motions intact. EARS: Hearing grossly intact. MOUTH: Oropharynx is normal. NECK: No adenopathy, no JVD. CHEST: Chest with crackles breath sounds bilaterally. No wheezes, rales, or rhonchi. CARDIAC: Regular rate and rhythm. S1 and S2, without murmurs, gallops, or rubs. VASCULAR: No Edema. Peripheral pulses normal and equal in all extremities. ABDOMEN: Soft, without detectable tenderness. No sign of distention. No rebound or guarding, and no masses palpated. Bowel Sounds normal. MUSCULOSKELETAL: Good range of motion of all major joints. Extremities without clubbing, cyanosis or edema. NEUROLOGIC EXAM: Alert and oriented x 3. No focal sensory or strength deficits. Speech normal. Follows commands. PSYCHIATRIC: Mood normal. SKIN: No rash or lesions. - Constitutional Vitals: Temp Pulse Resp BP Pulse Ox 97.9 F 74 18 108/59 94 01/30/18 15:49 01/30/18 15:49 01/30/18 15:49 01/30/18 15:49 01/30/18 15:49 General appearance: Present: no acute distress, cachectic Results - Labs CBC & Chem 7: 01/30/18 05:25 01/30/18 05:25 Labs: Laboratory Last Values WBC 7.2 K/mm3 (4.5-11.0) 01/30/18 05:25 RBC 4.01 M/mm3 (3.65-5.03) 01/30/18 05:25 Hgb 12.1 gm/dl (10.1-14.3) 01/30/18 05:25 Hct 35.5 % (30.3-42.9) 01/30/18 05:25 MCV 89 fl (79-97) 01/30/18 05:25 MCH 30 pg (28-32) 01/30/18 05:25 MCHC 34 % (30-34) 01/30/18 05:25 RDW 16.3 % (13.2-15.2) H 01/30/18 05:25 Plt Count 114 K/mm3 (140-440) L 01/30/18 05:25 Lymph % (Auto) 24.1 % (13.4-35.0) 01/30/18 05:25 [place] % (Auto) 8.9 % (0.0-7.3) H 01/30/18 05:25 Eos % (Auto) 0.1 % (0.0-4.3) 01/30/18 05:25 Baso % (Auto) 0.2 % (0.0-1.8) 01/30/18 05:25 Lymph # 1.7 K/mm3 (1.2-5.4) 01/30/18 05:25 [place] # 0.6 K/mm3 (0.0-0.8) 01/30/18 05:25 Eos # 0.0 K/mm3 (0.0-0.4) 01/30/18 05:25 Baso # 0.0 K/mm3 (0.0-0.1) 01/30/18 05:25 Seg Neutrophils % 66.7 % (40.0-70.0) 01/30/18 05:25 Seg Neutrophils # 4.8 K/mm3 (1.8-7.7) 01/30/18 05:25 PT 13.9 Sec. (12.2-14.9) 01/28/18 15:06 INR 1.02 (0.87-1.13) 01/28/18 15:06 APTT 27.8 Sec. (24.2-36.6) 01/28/18 15:06 POC ABG pH 7.483 (7.35-7.45) H 01/28/18 15:43 POC ABG pCO2 30.5 (35-45) L 01/28/18 15:43 POC ABG pO2 50 (80-105) L 01/28/18 15:43 POC ABG HCO3 22.8 01/28/18 15:43 POC ABG Total CO2 24 01/28/18 15:43 POC ABG O2 Sat 88 01/28/18 15:43 POC ABG Base Excess -1 01/28/18 15:43 FiO2 28 % 01/28/18 15:43 Sodium 146 mmol/L (137-145) H 01/30/18 05:25 Potassium 4.9 mmol/L (3.6-5.0) D 01/30/18 05:25 Chloride 105.1 mmol/L (98-107) 01/30/18 05:25 Carbon Dioxide 23 mmol/L (22-30) 01/30/18 05:25 Anion Gap 23 mmol/L 01/30/18 05:25 BUN 27 mg/dL (7-17) H 01/30/18 05:25 Creatinine 1.1 mg/dL (0.7-1.2) 01/30/18 05:25 Estimated GFR 49 ml/min 01/30/18 05:25 BUN/Creatinine Ratio 25 % 01/30/18 05:25 Glucose 89 mg/dL (65-100) 01/30/18 05:25 Hemoglobin A1c 6.0 % (4-6) 01/28/18 19:46 Calcium 8.8 mg/dL (8.4-10.2) 01/30/18 05:25 Total Bilirubin 0.40 mg/dL (0.1-1.2) 01/30/18 05:25 AST 30 units/L (5-40) 01/30/18 05:25 ALT 26 units/L (7-56) 01/30/18 05:25 Alkaline Phosphatase 73 units/L (35-129) 01/30/18 05:25 Troponin T < 0.010 ng/mL (0.00-0.029) 01/28/18 15:06 NT-Pro-B Natriuret Pep 60097 pg/mL (0-900) H 01/28/18 15:06 Total Protein 6.1 g/dL (6.3-8.2) L 01/30/18 05:25 Albumin 3.5 g/dL (3.9-5) L 01/30/18 05:25 Albumin/Globulin Ratio 1.3 % 01/30/18 05:25
[2018-01-30] MEDS: PRAVACHOL PO SCH (17:50)
[2018-01-31] MEDS: DUONEB *Not for PRN Use IH SCH ×3 (02:23→13:40)
[2018-01-31 05:53] LABS: Basophils % (Auto) 0.2 % (0.0-1.8); Eosinophils % (Auto) 0.2 % (0.0-4.3); Lymphocytes % (Auto) 35.6 % (13.4-35.0); Mean Corpuscular HGB Conc 34 % (30-34); Mean Corpuscular Hemoglobin 31 pg (28-32); Mean Corpuscular Volume 90 fl (79-97); Monocytes # (Auto) 0.5 K/mm3 (0.0-0.8); Monocytes % (Auto) 9.6 % (0.0-7.3); Platelet Count 128 K/mm3 (140-440); Red Cell Distribution Width 16.3 % (13.2-15.2)
[2018-01-31 06:34] LABS: Calcium 9.4 mg/dL (8.4-10.2)
[2018-01-31 06:41] LABS: Hematocrit 39.9 % (30.3-42.9)
--- NOTE | 2018-01-31 10:11 | Progress Note ---
Assessment and Plan Assessment: Acute respiratory failure Acute copd exacerbation Chronic atrial fibrillation Left bundle branch block Malnutrition Acute on chronic systolic heart failure H/o CVA Plan: Echo showed moderate LVH, EF 20-25%, mild-moderate MR, mild-moderate TR. Given these findings, will d/c diltiazem and initiate metoprolol succinate 25mg daily and losartan 25mg daily. If HR and BP remain stable this afternoon, patient may be discharged from a cardiac standpoint. Follow up appointment with Dr. Cruz in the [place] office on Tuesday, at 1:00pm. The patient has been seen in conjunction with Dr. Campos who agrees with the assessment and plan of care. Subjective Date of service: 01/31/18 Principal diagnosis: Acute on chronic systolic heart failure, COPD, Acute respiratory failure Interval history: The patient is resting comfortably in bed. No new complaints. Atrial fibrillation with HR 70s-80s on the monitor. Objective Last Vital Signs Temp 98.4 F 01/31/18 08:09 Pulse 84 01/31/18 08:36 Resp 17 01/31/18 08:49 BP 120/85 01/31/18 08:09 Pulse Ox 95 01/31/18 08:30 - Physical Examination General: No Apparent Distress HEENT: Positive: PERRL, EOMI Neck: Positive: neck supple, trachea midline Cardiac: Positive: irregularly irregular, S1/S2 Lungs: Positive: clear to auscultation Neuro: Positive: Grossly Intact Abdomen: Positive: Soft Skin: Positive: Clear. Negative: Rash Extremities: Present: normal, Other (bilateral femoral bruits). Absent: edema - Labs and Meds Cardiac Enzymes 01/31/18 Range/Units 05:03 AST 14 (5-40) units/L CBC 01/31/18 Range/Units 05:03 WBC 5.5 (4.5-11.0) K/mm3 RBC 4.60 (3.65-5.03) M/mm3 Hgb 14.0 (10.1-14.3) gm/dl Hct 39.9 (30.3-42.9) % Plt Count 128 L (140-440) K/mm3 Lymph # 2.0 (1.2-5.4) K/mm3 [place] # 0.5 (0.0-0.8) K/mm3 Eos # 0.0 (0.0-0.4) K/mm3 Baso # 0.0 (0.0-0.1) K/mm3 Comprehensive Metabolic Panel 01/31/18 Range/Units 05:03 Sodium 146 H (137-145) mmol/L Potassium 4.0 (3.6-5.0) mmol/L Chloride 98.4 (98-107) mmol/L Carbon Dioxide 32 H D (22-30) mmol/L BUN 27 H (7-17) mg/dL Creatinine 1.2 (0.7-1.2) mg/dL Glucose 84 (65-100) mg/dL Calcium 9.4 (8.4-10.2) mg/dL AST 14 (5-40) units/L ALT 22 (7-56) units/L Alkaline Phosphatase 77 (35-129) units/L Total Protein 7.0 (6.3-8.2) g/dL Albumin 4.0 (3.9-5) g/dL - Imaging and Cardiology EKG: report reviewed (A fib with rvr) Echo: report reviewed (01/2018: moderate LVH, EF 20-25%, mild-moderate MR, mild- moderate TR) Cardiac cath: other ([facility] 07/18/2017 showed minimal coronary irregularities, mildly dilated LV with diffuse hypokinesis, EF 40-45%. ) - Telemetry EKG Rhythm: Atrial Fibrillation
[2018-01-31] MEDS: ELIQUIS PO SCH (10:18)
[2018-01-31] MEDS: LASIX PO SCH (10:18)
[2018-01-31] MEDS: LANOXIN PO SCH (10:18)
[2018-01-31] MEDS: celeXA PO SCH (10:18)
[2018-01-31] MEDS: PEPCID PO SCH (10:18)
[2018-01-31] MEDS: SODIUM CHLORIDE FLUSH SYRINGE 10 ML IV SCH (10:20)
[2018-01-31] MEDS ORDERED: TOPROL XL PO SCH (11:00)
[2018-01-31] MEDS ORDERED: COZAAR PO SCH (11:00)
[2018-01-31] MEDS ORDERED: ROBITUSSIN AC PO PRN (11:49)
--- NOTE | 2018-01-31 12:52 | Discharge Summary ---
Providers - Providers Date of Admission: 01/28/18 17:24 Attending physician: SEVERINO PORTILLO MD 01/29/18 09:41 Consult to Cardiology [CONS] Routine Consulting Provider: RIDDHI JIMENEZ Reason For Exam: A Fib with RVR Primary care physician: [employer] Hospitalization Condition: Stable Hospital course: (1) Acute respiratory failure Current Visit: Yes Status: Acute Qualifiers: Respiratory failure complication: hypoxia Qualified Code(s): J96.01 - Acute respiratory failure with hypoxia Plan to address problem: ABG consistent with Hypoxia sec to Chf and COPD Treat CHF and COpd Discussed with cardiology, await Echo (2) Atrial fibrillation with RVR Current Visit: Yes Status: Acute Plan to address problem: Patient on Cardizem drip To be transitioned to PO Cardizem. Patient on Digoxin and Metoprool Patient on Eliquis (3) Acute on chronic systolic CHF (congestive heart failure) Current Visit: No Status: Acute Plan to address problem: IV Lasix for now Check ECHO for EF and Valve function ON Digoxin (4) COPD (chronic obstructive pulmonary disease) Cont Duonebs (5) HTN (hypertension) * Cont antihypertensives (6) TOBACCO DEPENDANCE * 15 mins discussion about tobacco cessation. still not inclined o quit but will think about it. (7)DVT prophylaxis Current Visit: Yes Status: Acute Plan to address problem: On Eliquis Disposition: DC/[place]-06 HOME UNDER HOME HLTH Time spent for discharge: 35 mins Exam - Physical Exam Narrative exam: VITAL SIGNS: Reviewed. GENERAL: The patient appeared well nourished and normally developed. Vital signs as documented. HEAD: No signs of head trauma. EYES: Pupils are equal. Extraocular motions intact. EARS: Hearing grossly intact. MOUTH: Oropharynx is normal. NECK: No adenopathy, no JVD. CHEST: Chest with crackles breath sounds bilaterally. No wheezes, rales, or rhonchi. CARDIAC: Regular rate and rhythm. S1 and S2, without murmurs, gallops, or rubs. VASCULAR: No Edema. Peripheral pulses normal and equal in all extremities. ABDOMEN: Soft, without detectable tenderness. No sign of distention. No rebound or guarding, and no masses palpated. Bowel Sounds normal. MUSCULOSKELETAL: Good range of motion of all major joints. Extremities without clubbing, cyanosis or edema. NEUROLOGIC EXAM: Alert and oriented x 3. No focal sensory or strength deficits. Speech normal. Follows commands. PSYCHIATRIC: Mood normal. SKIN: No rash or lesions. - Constitutional Vitals: Temp Pulse Resp BP Pulse Ox 97.9 F 77 18 107/72 96 01/31/18 11:55 01/31/18 11:55 01/31/18 11:55 01/31/18 11:55 01/31/18 11:55 Plan Activity: advance as tolerated, fall precautions Diet: low cholesterol, low salt Special Instructions: record daily BP diary Follow up with: VALE MCCLENDON MD [Primary Care Provider] - 7 Days JOHAN ALVAREZ MD [Staff Physician] - 7 Days Prescriptions: Famotidine [Pepcid] 20 mg PO BID #30 tablet Losartan [Cozaar] 25 mg PO QDAY #30 tablet Metoprolol Xl [Metoprolol SUCCINATE ER TAB] 50 mg PO QDAY #30 tablet
[2018-01-31 13:09] VITALS: BP 101/68
--- NOTE | 2018-02-01 13:59 | Vascular Lab Report ---
LOWER EXTREMITY ARTERIAL DUPLEX: REASON FOR EXAM: Peripheral arterial disease. COMMENTS ON THE RIGHT: Monophasic waveforms are seen proximally. Monophasic waveforms are seen distally. A large amount of eccentric plaque is seen particularly in the proximal arteries. Flow velocities are markedly elevated consistent with distal iliac and common femoral artery occlusive disease. Findings are consistent with abnormal perfusion. Findings are not consistent with the ability to heal distal wounds. COMMENTS ON THE LEFT: Biphasic waveforms are seen proximally. Monophasic waveforms are seen distally. Findings are consistent with severe common femoral artery stenosis. A significant amount of scattered plaque is seen throughout. Findings are consistent with abnormal perfusion. Findings are not consistent with the ability to heal distal wounds. IMPRESSION: Heavily calcified plaque in the distal external iliac and common femoral arteries bilaterally causing significant arterial occlusive disease. Recommend further evaluation including angiography as clinically appropriate.
== END 2018-01-31 16:50 | disposition home or self-care (01) | DRG 291 ==
LOC: ED 13:28 → 4A 17:24
PROVIDERS: ADMIT Internal Medicine; ATTEND Internal Medicine
PROC: 4A033R1 Measurement of Arterial Saturation, Peripheral, Percutaneous Approach (ICD-10-PCS; principal; 2018-01-28)
DX: I11.0 Hypertensive heart disease with heart failure (principal); J96.01 Acute respiratory failure with hypoxia; J44.1 Chronic obstructive pulmonary disease with (acute) exacerbation; Z68.1 Body mass index [BMI] 19.9 or less, adult; E46 Unspecified protein-calorie malnutrition; D68.59 Other primary thrombophilia; I50.23 Acute on chronic systolic (congestive) heart failure; I42.8 Other cardiomyopathies; I48.2 Chronic atrial fibrillation; I44.7 Left bundle-branch block, unspecified; I25.10 Atherosclerotic heart disease of native coronary artery without angina pectoris; F17.200 Nicotine dependence, unspecified, uncomplicated; Z71.6 Tobacco abuse counseling; Z86.73 Personal history of transient ischemic attack (TIA), and cerebral infarction without residual deficits; Z79.899 Other long term (current) drug therapy; I25.2 Old myocardial infarction; Z87.01 Personal history of pneumonia (recurrent)
CPT/HCPCS: 36415; 71045; 80048; 80053; 80162; 82803; 83036; 83735; 83880; 84484; 85025; 85610; 85730; 93005; 93010; 93306; 93925; 94640; 94760; 96365; 96366; 99406; A9270-GY; J2930

== ENCOUNTER 2018-04-09 15:16 | Inpatient (IN) | payer MEDICARE ==
[2018-04-09 16:00] LABS: Hematocrit 42.4 % (30.3-42.9); Hemoglobin 14.5 gm/dl (10.1-14.3); Mean Corpuscular HGB Conc 34 % (30-34); Mean Corpuscular Hemoglobin 31 pg (28-32); Mean Corpuscular Volume 90 fl (79-97); Platelet Count 109 K/mm3 (140-440); Red Blood Count 4.69 M/mm3 (3.65-5.03); Red Cell Distribution Width 14.8 % (13.2-15.2)
[2018-04-09 16:04] LABS: INR 1.36 (0.87-1.13); Partial Thromboplastin Time 28.9 Sec. (24.2-36.6)
[2018-04-09 16:10] LABS: Albumin 4.7 g/dL (3.9-5); Bilirubin,Direct 0.3 mg/dL (0-0.2); Calcium 9.6 mg/dL (8.4-10.2)
--- NOTE | 2018-04-09 16:42 | Cat Scan Report ---
FINAL REPORT PROCEDURE: CT HEAD/BRAIN WO CON TECHNIQUE: Computerized tomography of the head was performed without contrast material. HISTORY: head pain/HTN COMPARISON: No prior studies are available for comparison. FINDINGS: There is chronic appearing infarct in the left basal ganglia. No CT evidence of intracranial mass, hemorrhage, acute territorial infarction, or hydrocephalus. There are mild involutional changes. There is bilateral white matter low attenuation, compatible with chronic microvascular ischemic changes. No acute fracture is seen. Visualized paranasal sinuses and mastoids are aerated. IMPRESSION: Chronic ischemic changes
[2018-04-09 16:54] LABS: Total Cells Counted 100
[2018-04-09] MEDS ORDERED: CORDARONE IV ONE (16:57)
[2018-04-09 16:59] LABS: Anisocytosis 1+; Band Neutrophils # (Manual) 0.1 K/mm3; Basophils % (Manual) 0 % (0.0-1.8); Eosinophils % (Manual) 0 % (0.0-4.3); Platelet Estimate Consistent w Auto
[2018-04-09] MEDS ORDERED: TYLENOL #3 PO ONE (16:59)
[2018-04-09] MEDS ORDERED: CORDARONE 900 MG in D5W 482 ML IV SCH (17:00)
[2018-04-09] MEDS ORDERED: BABY ASPIRIN PO ONE (17:02)
--- NOTE | 2018-04-09 17:02 | Emergency Department Report ---
HPI - General Chief Complaint: Nausea/Vomiting/Diarrhea Time Seen by Provider: 04/09/18 16:24 - HPI HPI: The patient is a 72-year-old female with a history of atrial fibrillation, COPD , CHF, who presents for evaluation of headache, dyspnea, chest pain, nausea or vomiting. The patient states that since awakening this morning, approx 6-8 hours ago, she has experienced a moderate severity aching frontal headache, nausea, one episode of vomiting, worsened dyspnea from her baseline, and a pounding in quality chest discomfort, moderate severity. ED Past Medical Hx - Past Medical History Previous Medical History?: Yes Hx Hypertension: Yes Hx Heart Attack/AMI: Yes Hx Congestive Heart Failure: Yes (card cath ef 40-45%, minimal coronary irregularities) Hx COPD: Yes Additional medical history: pneumonia. Atrial fibrillation. Dilated cardiomyopathy - Surgical History Past Surgical History?: Yes Hx Breast Surgery: Yes Additional Surgical History: breast surgery - Social History Smoking Status: Current Every Day Smoker Substance Use Type: None - Medications Home Medications: Home Medications Medication Instructions Recorded Confirmed Last Taken Type ALBUTEROL NEB's [Proventil 0.083% 2.5 mg IH Q4HRT PRN #60 nebu 10/09/17 Unknown Rx NEBS] Apixaban [Eliquis] 5 mg PO Q12HR #60 tablet 10/09/17 01/28/18 Unknown Rx Citalopram [Celexa] 20 mg PO QDAY #30 tablet 10/09/17 01/28/18 Unknown Rx Furosemide [Lasix TAB] 20 mg PO QDAY #10 tablet 10/09/17 01/28/18 Unknown Rx Ipratropium/Albuterol Sulfate 1 ampul IH Q6HR #60 ampul.neb 10/09/17 01/28/18 Unknown Rx [DUONEB *Not for PRN Use*] Lovastatin [Altoprev] 20 mg PO QPM #30 tab.er.24h 10/09/17 01/28/18 Unknown Rx Nebulizer and Compressor [Portable 1 each MC QID #1 each 10/09/17 01/28/18 Unknown Rx Nebulizer System] Digoxin [Lanoxin] 0.25 mg PO DAILY 01/28/18 01/28/18 Unknown History Famotidine [Pepcid] 20 mg PO BID #30 tablet 01/31/18 Unknown Rx Losartan [Cozaar] 25 mg PO QDAY #30 tablet 01/31/18 Unknown Rx Metoprolol Xl [Metoprolol 50 mg PO QDAY #30 tablet 01/31/18 Unknown Rx SUCCINATE ER TAB] ED Review of Systems ROS: Stated complaint: VOMITTING Other details as noted in HPI Constitutional: denies: fever ENT: denies: throat or neck pain Respiratory: denies: cough reports shortness of breath Cardiovascular: reportys: chest pain Endocrine: denies unexplained weight loss or gain Gastrointestinal: denies: abdominal pain reports nausea and vomiting Genitourinary: denies: dysuria Musculoskeletal: denies: leg swelling Skin: denies: rash Neurological: reports: headache Hematological/Lymphatic: denies: easy bleeding or easy bruising Psych: denies sadness or hopelessness Physical Exam - Physical Exam Vital Signs: Vital Signs 04/09/18 04/09/18 04/09/18 15:51 16:50 16:52 Temperature 98.3 F Pulse Rate 90 110 H Respiratory 24 31 H 31 H Rate Blood Pressure 122/79 134/90 [Left] O2 Sat by Pulse 100 95 Oximetry Physical Exam: General: well-nourished, well-developed, no acute distress Head: Normocephalic, atraumatic Eyes: normal sclera ENT: Mucous membranes are pink and moist Neck: trachea midline, neck supple, No neck stiffness, no cervical adenopathy Respiratory: Diminished breath sounds and crackles present to bilateral basilar lung jimenez mild costal retractions present Cardio: S1 and S2 present, no murmurs, rubs, gallops, capillary refill is brisk Abdomen: Normoactive bowel sounds, soft abdomen, no tenderness Chest WALL/Back: No tenderness to palpation of the chest wall, no CVA tenderness with percussion Musc: No pitting edema Skin: No rash Neuro: no facial drooping, normal speech Psych: Normal affect ED Course Vital Signs 04/09/18 04/09/18 04/09/18 15:51 16:50 16:52 Temperature 98.3 F Pulse Rate 90 110 H Respiratory 24 31 H 31 H Rate Blood Pressure 122/79 134/90 [Left] O2 Sat by Pulse 100 95 Oximetry ED Medical Decision Making - Lab Data Result diagrams: 04/09/18 15:44 04/09/18 15:44 - Medical Decision Making The patient was seen and examined by myself. The patient is placed on a equipment monitor phototypesetting and continuous pulse ox. On initial evaluation, the patient was found to be in no distress. Evaluation orders were placed. EKG is obtained exhibits irregularly irregular without p waves, consistent withafib with rvr. The patient is given an amiodarone bolus and started on an amiodarone drip. Labs reveal severely elevated BNP. CT scan of the head was negative. Labs reveal severely elevated BNP. PAtient admitted to the hospitalist service via Dr. Goss. Critical Care Time: Yes Critical care time in (mins) excluding proc time.: 35 Critical care attestation.: If time is entered above; I have spent that time in minutes in the direct care of this critically ill patient, excluding procedure time. Critical Care Time: 35 min ED Disposition Clinical Impression: Atrial fibrillation with RVR, Acute on chronic combined systolic (congestive) and diastolic (congestive) heart failure, Acute chest pain Acute headache Qualifiers: Headache type: tension-type Intractability: not intractable Qualified Code(s): G44.209 - Tension-type headache, unspecified, not intractable Disposition: DC-09 OP ADMIT IP TO THIS HOSP Is pt being admited?: Yes Does the pt Need Aspirin: Yes Condition: Critical Time of Disposition: 17:02
--- NOTE | 2018-04-09 17:17 | XRay Report ---
FINAL REPORT PROCEDURE: XR CHEST 1V AP TECHNIQUE: Chest radiograph anteroposterior view. CPT 65234 HISTORY: chest pain COMPARISON: 01/28/2018 FINDINGS: Heart: Prominent cardiac silhouette Mediastinum/Vessels: Normal. Lungs/Pleural space: No infiltrate, effusion, or pneumothorax. Bony thorax: No acute osseous abnormality. Life support devices: None. IMPRESSION: Prominent but stable cardiac silhouette.
[2018-04-09] MEDS ORDERED: LASIX IV ONE (17:32)
[2018-04-09] MEDS ORDERED: LASIX ONE (18:29)
[2018-04-09 19:57] LABS: Bilirubin,Urine NEG (Negative); Blood,Urine MOD (Negative); Color,Urine Yellow (Yellow); Mucus,Urine FEW /HPF; Urobilinogen,Urine < 2.0 mg/dL (<2.0)
[2018-04-09] MEDS: DUONEB *Not for PRN Use IH SCH (21:10)
--- NOTE | 2018-04-09 21:44 | History and Physical Report ---
History of Present Illness Date of examination: 04/09/18 Date of admission: 04/09/18 17:33 Chief complaint: CC Increasing SOBsince AM Vomiting 1 episode History of present illness: KWIG[place]ING[place]: The patient is a 72-year-old female with a history of atrial fibrillation, COPD , CHF, who presents for evaluation of headache, dyspnea, chest pain, nausea and vomiting. The patient states that since awakening this morning, approx 6-8 hours ago, she has experienced a moderate severity aching frontal headache, nausea, one episode of vomiting, worsened dyspnea from her baseline, and a pounding in quality chest discomfort, moderate severity. Also severe Orthopnea and wheezing present.No fever or chills Past Medical History Previous Medical History?: Yes Hx Hypertension: Yes Hx Heart Attack/AMI: Yes Hx Congestive Heart Failure: Yes (card cath ef 40-45%, minimal coronary irregularities) Hx COPD: Yes Additional medical history: pneumonia. Atrial fibrillation. Dilated cardiomyopathy Surgical History Past Surgical History?: Yes Hx Breast Surgery: Yes Additional Surgical History: breast surgery Social History Smoking Status: Current Every Day Smoker Substance Use Type: None Medications Home Medications: Home Medications Medication Instructions Recorded Confirmed Last Taken Type ALBUTEROL NEB's [Proventil 0.083% 2.5 mg IH Q4HRT PRN #60 nebu 10/09/17 Unknown Rx NEBS] Apixaban [Eliquis] 5 mg PO Q12HR #60 tablet 10/09/17 01/28/18 Unknown Rx Citalopram [Celexa] 20 mg PO QDAY #30 tablet 10/09/17 01/28/18 Unknown Rx Furosemide [Lasix TAB] 20 mg PO QDAY #10 tablet 10/09/17 01/28/18 Unknown Rx Ipratropium/Albuterol Sulfate 1 ampul IH Q6HR #60 ampul.neb 10/09/17 01/28/18 Unknown Rx [DUONEB *Not for PRN Use*] Lovastatin [Altoprev] 20 mg PO QPM #30 tab.er.24h 10/09/17 01/28/18 Unknown Rx Nebulizer and Compressor [Portable 1 each MC QID #1 each 10/09/17 01/28/18 Unknown Rx Nebulizer System] Digoxin [Lanoxin] 0.25 mg PO DAILY 01/28/18 01/28/18 Unknown History Famotidine [Pepcid] 20 mg PO BID #30 tablet 01/31/18 Unknown Rx Losartan [Cozaar] 25 mg PO QDAY #30 tablet 01/31/18 Unknown Rx Metoprolol Xl [Metoprolol 50 mg PO QDAY #30 tablet 01/31/18 Unknown Rx SUCCINATE ER TAB] Review of Systems ROS: Stated complaint: VOMITTING Other details as noted in HPI Constitutional: denies: fever ENT: denies: throat or neck pain Respiratory: denies: cough reports shortness of breath Cardiovascular: reportys: chest pain Endocrine: denies unexplained weight loss or gain Gastrointestinal: denies: abdominal pain reports nausea and vomiting Genitourinary: denies: dysuria Musculoskeletal: denies: leg swelling Skin: denies: rash Neurological: reports: headache Hematological/Lymphatic: denies: easy bleeding or easy bruising Psych: denies sadness or hopelessness Medications and Allergies Allergies Allergy/AdvReac Type Severity Reaction Status Date / Time No Known Allergies Allergy Verified 08/06/17 04:08 Home Medications Medication Instructions Recorded Confirmed Last Taken Type ALBUTEROL NEB's [Proventil 0.083% 2.5 mg IH Q4HRT PRN #60 nebu 10/09/17 Unknown Rx NEBS] Apixaban [Eliquis] 5 mg PO Q12HR #60 tablet 10/09/17 01/28/18 Unknown Rx Citalopram [Celexa] 20 mg PO QDAY #30 tablet 10/09/17 01/28/18 Unknown Rx Furosemide [Lasix TAB] 20 mg PO QDAY #10 tablet 10/09/17 01/28/18 Unknown Rx Ipratropium/Albuterol Sulfate 1 ampul IH Q6HR #60 ampul.neb 10/09/17 01/28/18 Unknown Rx [DUONEB *Not for PRN Use*] Lovastatin [Altoprev] 20 mg PO QPM #30 tab.er.24h 10/09/17 01/28/18 Unknown Rx Nebulizer and Compressor [Portable 1 each MC QID #1 each 10/09/17 01/28/18 Unknown Rx Nebulizer System] Digoxin [Lanoxin] 0.25 mg PO DAILY 01/28/18 01/28/18 Unknown History Famotidine [Pepcid] 20 mg PO BID #30 tablet 01/31/18 Unknown Rx Losartan [Cozaar] 25 mg PO QDAY #30 tablet 01/31/18 Unknown Rx Metoprolol Xl [Metoprolol 50 mg PO QDAY #30 tablet 01/31/18 Unknown Rx SUCCINATE ER TAB] Active Meds: Active Medications Albuterol/Ipratropium (Duoneb *Not For Prn Use*) 1 ampul IH QIDRT ANGÉLICA Furosemide (Lasix) 40 mg IV 0600,1800 ANGÉLICA Amiodarone HCl 900 mg/ (Dextrose) 500 mls @ 33.33 mls/hr IV DIRECT ANGÉLICA; Protocol Last Admin: 04/09/18 17:37 Dose: 1 mg/min, 33.33 mls/hr Potassium Chloride (K-Dur) 20 meq PO Q12H ANGÉLICA Exam - Constitutional Vitals: Temp Pulse Resp BP Pulse Ox 98.3 F 79 37 H 133/81 96 04/09/18 15:51 04/09/18 19:31 04/09/18 19:31 04/09/18 19:31 04/09/18 19:31 General appearance: Present: severe distress, well-nourished - EENT Eyes: Present: PERRL ENT: hearing intact, clear oral mucosa - Neck Neck: Present: supple, normal ROM - Respiratory Respiratory effort: normal Respiratory: bilateral: diminished, rales, rhonchi - Cardiovascular Heart rate: 90 Rhythm: irregularly irregular Heart Sounds: Present: S1 & S2. Absent: rub, click - Extremities Extremities: no ischemia, pulses intact, pulses symmetrical, No edema Peripheral Pulses: within normal limits - Abdominal General gastrointestinal: Present: soft, non-tender, non-distended, normal bowel sounds Female genitourinary: Present: normal - Integumentary Integumentary: Present: clear, warm, dry - Musculoskeletal Musculoskeletal: gait normal, strength equal bilaterally - Psychiatric Psychiatric: appropriate mood/affect, intact judgment & insight - Neurologic Neurologic: CNII-XII intact, moves all extremities - Allied Health Allied health notes reviewed: nursing, case management Results - Labs CBC & Chem 7: 04/09/18 15:44 04/09/18 15:44 Labs: Laboratory Last Values WBC 8.4 K/mm3 (4.5-11.0) 04/09/18 15:44 RBC 4.69 M/mm3 (3.65-5.03) 04/09/18 15:44 Hgb 14.5 gm/dl (10.1-14.3) H 04/09/18 15:44 Hct 42.4 % (30.3-42.9) 04/09/18 15:44 MCV 90 fl (79-97) 04/09/18 15:44 MCH 31 pg (28-32) 04/09/18 15:44 MCHC 34 % (30-34) 04/09/18 15:44 RDW 14.8 % (13.2-15.2) 04/09/18 15:44 Plt Count 109 K/mm3 (140-440) L 04/09/18 15:44 Baso % (Auto) Hardware Designer 04/09/18 15:44 Add Manual Diff Complete 04/09/18 15:44 Total Counted 100 04/09/18 15:44 Seg Neuts % (Manual) 85.0 % (40.0-70.0) H 04/09/18 15:44 Band Neutrophils % 1.0 % 04/09/18 15:44 Lymphocytes % (Manual) 11.0 % (13.4-35.0) L 04/09/18 15:44 Reactive Lymphs % (Man) 0 % 04/09/18 15:44 Monocytes % (Manual) 3.0 % (0.0-7.3) 04/09/18 15:44 Eosinophils % (Manual) 0 % (0.0-4.3) 04/09/18 15:44 Basophils % (Manual) 0 % (0.0-1.8) 04/09/18 15:44 Metamyelocytes % 0 % 04/09/18 15:44 Myelocytes % 0 % 04/09/18 15:44 Promyelocytes % 0 % 04/09/18 15:44 Blast Cells % 0 % 04/09/18 15:44 Nucleated RBC % Not Reportable 04/09/18 15:44 Seg Neutrophils # Man 7.1 K/mm3 (1.8-7.7) 04/09/18 15:44 Band Neutrophils # 0.1 K/mm3 04/09/18 15:44 Lymphocytes # (Manual) 0.9 K/mm3 (1.2-5.4) L 04/09/18 15:44 Abs React Lymphs (Man) 0.0 K/mm3 04/09/18 15:44 Monocytes # (Manual) 0.3 K/mm3 (0.0-0.8) 04/09/18 15:44 Eosinophils # (Manual) 0.0 K/mm3 (0.0-0.4) 04/09/18 15:44 Basophils # (Manual) 0.0 K/mm3 (0.0-0.1) 04/09/18 15:44 Metamyelocytes # 0.0 K/mm3 04/09/18 15:44 Myelocytes # 0.0 K/mm3 04/09/18 15:44 Promyelocytes # 0.0 K/mm3 04/09/18 15:44 Blast Cells # 0.0 K/mm3 04/09/18 15:44 WBC Morphology Not Reportable 04/09/18 15:44 Hypersegmented Neuts Not Reportable 04/09/18 15:44 Hyposegmented Neuts Not Reportable 04/09/18 15:44 Hypogranular Neuts Not Reportable 04/09/18 15:44 Smudge Cells Not Reportable 04/09/18 15:44 Toxic Granulation Not Reportable 04/09/18 15:44 Toxic Vacuolation Not Reportable 04/09/18 15:44 Dohle Bodies Not Reportable 04/09/18 15:44 Pelger-Huet Anomaly Not Reportable 04/09/18 15:44 Dori Rods Not Reportable 04/09/18 15:44 Platelet Estimate Consistent w auto 04/09/18 15:44 Clumped Platelets Not Reportable 04/09/18 15:44 Plt Clumps, EDTA Not Reportable 04/09/18 15:44 Large Platelets Not Reportable 04/09/18 15:44 Giant Platelets Not Reportable 04/09/18 15:44 Platelet Satelliting Not Reportable 04/09/18 15:44 Plt Morphology Comment Not Reportable 04/09/18 15:44 RBC Morphology Not Reportable 04/09/18 15:44 Dimorphic RBCs Not Reportable 04/09/18 15:44 Polychromasia Not Reportable 04/09/18 15:44 Hypochromasia Not Reportable 04/09/18 15:44 Poikilocytosis Not Reportable 04/09/18 15:44 Anisocytosis 1+ 04/09/18 15:44 Microcytosis Not Reportable 04/09/18 15:44 Macrocytosis Not Reportable 04/09/18 15:44 Spherocytes Not Reportable 04/09/18 15:44 Pappenheimer Bodies Not Reportable 04/09/18 15:44 Sickle Cells Not Reportable 04/09/18 15:44 Target Cells Not Reportable 04/09/18 15:44 Tear Drop Cells Not Reportable 04/09/18 15:44 Ovalocytes Not Reportable 04/09/18 15:44 Helmet Cells Not Reportable 04/09/18 15:44 [place] Bodies Not Reportable 04/09/18 15:44 [place] Rings Not Reportable 04/09/18 15:44 [place] Cells Not Reportable 04/09/18 15:44 Bite Cells Not Reportable 04/09/18 15:44 Crenated Cell Not Reportable 04/09/18 15:44 Elliptocytes Not Reportable 04/09/18 15:44 Acanthocytes (Spur) Not Reportable 04/09/18 15:44 Rouleaux Not Reportable 04/09/18 15:44 Hemoglobin C Crystals Not Reportable 04/09/18 15:44 Schistocytes Not Reportable 04/09/18 15:44 Malaria parasites Not Reportable 04/09/18 15:44 Sh[place]om Bodies Not Reportable 04/09/18 15:44 Hem Pathologist Commnt No 04/09/18 15:44 PT 17.3 Sec. (12.2-14.9) H 04/09/18 15:44 INR 1.36 (0.87-1.13) H 04/09/18 15:44 APTT 28.9 Sec. (24.2-36.6) 04/09/18 15:44 Sodium 140 mmol/L (137-145) 04/09/18 15:44 Potassium 3.7 mmol/L (3.6-5.0) 04/09/18 15:44 Chloride 103.3 mmol/L (98-107) 04/09/18 15:44 Carbon Dioxide 21 mmol/L (22-30) L 04/09/18 15:44 Anion Gap 19 mmol/L 04/09/18 15:44 BUN 21 mg/dL (7-17) H 04/09/18 15:44 Creatinine 1.0 mg/dL (0.7-1.2) 04/09/18 15:44 Estimated GFR 55 ml/min 04/09/18 15:44 BUN/Creatinine Ratio 21 % 04/09/18 15:44 Glucose 122 mg/dL (65-100) H 04/09/18 15:44 Calcium 9.6 mg/dL (8.4-10.2) 04/09/18 15:44 Total Bilirubin 1.10 mg/dL (0.1-1.2) 04/09/18 15:44 Direct Bilirubin 0.3 mg/dL (0-0.2) H 04/09/18 15:44 Indirect Bilirubin 0.8 mg/dL 04/09/18 15:44 AST 29 units/L (5-40) 04/09/18 15:44 ALT 35 units/L (7-56) 04/09/18 15:44 Alkaline Phosphatase 108 units/L (35-129) 04/09/18 15:44 NT-Pro-B Natriuret Pep 78859 pg/mL (0-900) H 04/09/18 15:44 Total Protein 7.0 g/dL (6.3-8.2) 04/09/18 15:44 Albumin 4.7 g/dL (3.9-5) 04/09/18 15:44 Albumin/Globulin Ratio 2.0 % 04/09/18 15:44 Urine Color Yellow (Yellow) 04/09/18 19:24 Urine Turbidity Clear (Clear) 04/09/18 19:24 Urine pH 5.0 (5.0-7.0) 04/09/18 19:24 Ur Specific [place] 1.012 (1.003-1.030) 04/09/18 19:24 Urine Protein 100 mg/dl mg/dL (Negative) 04/09/18 19:24 Urine Glucose (UA) Neg mg/dL (Negative) 04/09/18 19:24 Urine Ketones Neg mg/dL (Negative) 04/09/18 19:24 Urine Blood Mod (Negative) 04/09/18 19:24 Urine Nitrite Neg (Negative) 04/09/18 19:24 Urine Bilirubin Neg (Negative) 04/09/18 19:24 Urine Urobilinogen < 2.0 mg/dL (<2.0) 04/09/18 19:24 Ur Leukocyte Esterase Neg (Negative) 04/09/18 19:24 Urine WBC (Auto) 2.0 /HPF (0.0-6.0) 04/09/18 19:24 Urine RBC (Auto) 7.0 /HPF (0.0-6.0) 04/09/18 19:24 U Epithel Cells (Auto) 1.0 /HPF (0-13.0) 04/09/18 19:24 Urine Mucus Few /HPF 04/09/18 19:24 - Imaging and Cardiology CT scan - chest: report reviewed (Emphysematous changes.No infiltrate or vascular congestion) Assessment and Plan Advance Directives: Yes (Full code) - Patient Problems (1) Acute on chronic combined systolic (congestive) and diastolic (congestive) heart failure Current Visit: Yes Status: Acute Plan to address problem: IV Lasix initiated q12h ECHO ordered Cardiology consult ordered (2) Acute respiratory failure with hypoxia Current Visit: Yes Status: Acute Plan to address problem: Treat CHF and COPD Hypoxia should be better (3) COPD exacerbation Current Visit: Yes Status: Acute Plan to address problem: Duonebs Solumedrol and IV Levaquin (4) HTN (hypertension) Current Visit: Yes Status: Chronic Qualifiers: Hypertension type: essential hypertension Qualified Code(s): I10 - Essential (primary) hypertension Plan to address problem: Cont anti hypertensives (5) Atrial fibrillation with RVR Current Visit: Yes Status: Acute Plan to address problem: Diltiazem at low dose initiated (6) Anticoagulation adequate with anticoagulant therapy Current Visit: Yes Status: Chronic Plan to address problem: On Eliquis (7) GERD (gastroesophageal reflux disease) Current Visit: Yes Status: Chronic Qualifiers: Esophagitis presence: without esophagitis Qualified Code(s): K21.9 - Gastro -esophageal reflux disease without esophagitis Plan to address problem: Cont PPI's (8) HLD (hyperlipidemia) Current Visit: Yes Status: Chronic Qualifiers: Hyperlipidemia type: mixed hyperlipidemia Qualified Code(s): E78.2 - Mixed hyperlipidemia Plan to address problem: Cont Lovastatin (9) Depression Current Visit: Yes Status: Chronic Qualifiers: Depression Type: unspecified Qualified Code(s): F32.9 - Major depressive disorder, single episode, unspecified Plan to address problem: Cont Celexa (10) DVT prophylaxis Current Visit: Yes Status: Acute Plan to address problem: On ELiqujax No Levrickuin
[2018-04-09] MEDS ORDERED: ZOFRAN IV PRN (21:45)
[2018-04-09] MEDS ORDERED: AMBIEN PO PRN (21:45)
[2018-04-09] MEDS ORDERED: SODIUM CHLORIDE FLUSH SYRINGE 10 ML IV PRN (21:45)
[2018-04-09] MEDS ORDERED: PERCOCET 5/325 PO PRN (21:45)
[2018-04-09] MEDS ORDERED: MORPHINE IV PRN (21:45)
[2018-04-09] MEDS ORDERED: TYLENOL PO PRN (21:45)
[2018-04-09] MEDS ORDERED: PROVENTIL IH PRN (21:47)
[2018-04-09] MEDS ORDERED: LEVAQUIN 750MG/150ML 750 MG/150 ML BAG IV SCH (22:00)
[2018-04-09] MEDS ORDERED: PEPCID PO SCH ×2 (22:00)
[2018-04-09] MEDS: celeXA PO SCH (23:05)
[2018-04-09] MEDS: SODIUM CHLORIDE FLUSH SYRINGE 10 ML IV SCH (23:05)
[2018-04-09] MEDS: SOLU-Medrol IV SCH (23:05)
[2018-04-09] MEDS: COZAAR PO SCH (23:05)
[2018-04-09] MEDS: K-DUR PO SCH (23:05)
[2018-04-09] MEDS: ELIQUIS PO SCH (23:05)
[2018-04-09] MEDS: PEPCID PO SCH (23:05)
[2018-04-09] MEDS: LEVAQUIN 750MG/150ML 750 MG/150 ML BAG IV SCH (23:30)
[2018-04-10] MEDS ORDERED: DUONEB *Not for PRN Use IH SCH
[2018-04-10] MEDS: TOPROL XL PO SCH ×2 (00:26→11:50)
[2018-04-10] MEDS: LASIX IV SCH ×2 (05:46→20:32)
[2018-04-10] MEDS: SOLU-Medrol IV SCH ×2 (05:46→20:33)
[2018-04-10 06:10] LABS: Basophils % (Auto) 0.1 % (0.0-1.8); Hematocrit 43.2 % (30.3-42.9); Hemoglobin 14.3 gm/dl (10.1-14.3); Lymphocytes # (Auto) 0.6 K/mm3 (1.2-5.4); Lymphocytes % (Auto) 10.3 % (13.4-35.0); Mean Corpuscular HGB Conc 33 % (30-34); Mean Corpuscular Hemoglobin 30 pg (28-32); Mean Corpuscular Volume 91 fl (79-97); Monocytes # (Auto) 0.2 K/mm3 (0.0-0.8); Monocytes % (Auto) 3.5 % (0.0-7.3); Red Blood Count 4.74 M/mm3 (3.65-5.03); Red Cell Distribution Width 15.1 % (13.2-15.2)
[2018-04-10 06:12] LABS: Platelet Count 98 K/mm3 (140-440)
[2018-04-10 06:31] LABS: Albumin 4.2 g/dL (3.9-5); Calcium 8.9 mg/dL (8.4-10.2)
[2018-04-10] MEDS: DUONEB *Not for PRN Use IH SCH ×4 (07:11→19:43)
--- NOTE | 2018-04-10 10:24 | Consultation ---
History of Present Illness Consult date: 04/10/18 Requesting physician: VU ZARAGOZA Reason for consult: COPD History of present illness: PULMONARY / CCM CONSULT NOTE (Full dictation # [id number]) Please see dictated notes for full details Medications and Allergies Allergies Allergy/AdvReac Type Severity Reaction Status Date / Time No Known Allergies Allergy Verified 08/06/17 04:08 Home Medications Medication Instructions Recorded Confirmed Last Taken Type ALBUTEROL NEB's [Proventil 0.083% 2.5 mg IH Q4HRT PRN #60 nebu 10/09/17 Unknown Rx NEBS] Apixaban [Eliquis] 5 mg PO Q12HR #60 tablet 10/09/17 01/28/18 Unknown Rx Citalopram [Celexa] 20 mg PO QDAY #30 tablet 10/09/17 01/28/18 Unknown Rx Furosemide [Lasix TAB] 20 mg PO QDAY #10 tablet 10/09/17 01/28/18 Unknown Rx Ipratropium/Albuterol Sulfate 1 ampul IH Q6HR #60 ampul.neb 10/09/17 01/28/18 Unknown Rx [DUONEB *Not for PRN Use*] Lovastatin [Altoprev] 20 mg PO QPM #30 tab.er.24h 10/09/17 01/28/18 Unknown Rx Nebulizer and Compressor [Portable 1 each MC QID #1 each 10/09/17 01/28/18 Unknown Rx Nebulizer System] Digoxin [Lanoxin] 0.25 mg PO DAILY 01/28/18 01/28/18 Unknown History Famotidine [Pepcid] 20 mg PO BID #30 tablet 01/31/18 Unknown Rx Losartan [Cozaar] 25 mg PO QDAY #30 tablet 01/31/18 Unknown Rx Metoprolol Xl [Metoprolol 50 mg PO QDAY #30 tablet 01/31/18 Unknown Rx SUCCINATE ER TAB] Active Meds: Active Medications Acetaminophen (Tylenol) 650 mg PO Q4H PRN PRN Reason: Pain MILD(1-3)/Fever >100.5/VAZQUEZ Albuterol (Proventil) 2.5 mg IH Q4HRT PRN PRN Reason: Shortness Of Breath Albuterol/Ipratropium (Duoneb *Not For Prn Use*) 1 ampul IH QIDRT [facility] Last Admin: 04/10/18 07:11 Dose: 1 ampul Apixaban (Eliquis) 5 mg PO Q12HR [facility]; Protocol Last Admin: 04/09/18 23:05 Dose: 5 mg Citalopram Hydrobromide (Celexa) 20 mg PO QDAY [facility] Last Admin: 04/09/18 23:05 Dose: 20 mg Digoxin (Lanoxin) 0.25 mg PO DAILY@1700 ANGÉLICA Famotidine (Pepcid) 10 mg PO BID [facility] Last Admin: 04/09/18 23:05 Dose: 10 mg Furosemide (Lasix) 40 mg IV 0600,1800 [facility] Last Admin: 04/10/18 05:46 Dose: 40 mg Amiodarone HCl 900 mg/ (Dextrose) 500 mls @ 33.33 mls/hr IV DIRECT [facility]; Protocol Last Admin: 04/09/18 17:37 Dose: 1 mg/min, 33.33 mls/hr Levofloxacin/Dextrose (Levaquin 750mg/150ml) 750 mg in 150 mls @ 100 mls/hr IV Q48H [facility]; Protocol Last Admin: 04/09/18 23:30 Dose: 100 mls/hr Losartan Potassium (Cozaar) 25 mg PO QDAY [facility] Last Admin: 04/09/18 23:05 Dose: Not Given Methylprednisolone Sodium Succinate (Solu-Medrol) 60 mg IV Q8HR [facility] Last Admin: 04/10/18 05:46 Dose: 60 mg Metoprolol Succinate (Toprol Xl) 50 mg PO QDAY [facility] Last Admin: 04/10/18 00:26 Dose: Not Given Morphine Sulfate (Morphine) 2 mg IV Q4H PRN PRN Reason: Pain, Moderate (4-6) Nicotine (Habitrol) 21 mg TD QDAY [facility] Ondansetron HCl (Zofran) 4 mg IV Q8H PRN PRN Reason: Nausea And Vomiting Last Admin: 04/10/18 01:17 Dose: 4 mg Oxycodone/Acetaminophen (Percocet 5/325) 1 tab PO Q6H PRN PRN Reason: Pain, Moderate (4-6) Potassium Chloride (K-Dur) 20 meq PO Q12H [facility] Last Admin: 04/09/18 23:05 Dose: 20 meq Pravastatin Sodium (Pravachol) 20 mg PO QHS [facility] Sodium Chloride (Sodium Chloride Flush Syringe 10 Ml) 10 ml IV BID [facility] Last Admin: 04/09/18 23:05 Dose: 10 ml Sodium Chloride (Sodium Chloride Flush Syringe 10 Ml) 10 ml IV PRN PRN PRN Reason: LINE FLUSH Zolpidem Tartrate (Ambien) 5 mg PO QHS PRN PRN Reason: Insomnia Physical Examination Vital signs: Vital Signs Temp Pulse Resp BP Pulse Ox 98.3 F 90 24 122/79 100 04/09/18 15:51 04/09/18 15:51 04/09/18 15:51 04/09/18 15:51 04/09/18 15:51 Results - Laboratory Findings CBC and BMP: 04/10/18 05:13 04/10/18 05:13 PT/INR, D-dimer PT 17.3 Sec. (12.2-14.9) H 04/09/18 15:44 INR 1.36 (0.87-1.13) H 04/09/18 15:44 Abnormal lab findings: Abnormal Labs 04/09/18 04/09/18 04/09/18 15:44 15:44 15:44 Hgb 14.5 H Hct Plt Count 109 L Lymph % (Auto) Lymph # Seg Neutrophils % Seg Neuts % (Manual) 85.0 H Lymphocytes % (Manual) 11.0 L Lymphocytes # (Manual) 0.9 L PT 17.3 H INR 1.36 H Carbon Dioxide 21 L BUN 21 H Glucose 122 H Direct Bilirubin 0.3 H NT-Pro-B Natriuret Pep 18244 H 04/10/18 04/10/18 05:13 05:13 Hgb Hct 43.2 H Plt Count 98 L Lymph % (Auto) 10.3 L Lymph # 0.6 L Seg Neutrophils % 86.1 H Seg Neuts % (Manual) Lymphocytes % (Manual) Lymphocytes # (Manual) PT INR Carbon Dioxide BUN 22 H Glucose 153 H Direct Bilirubin NT-Pro-B Natriuret Pep
--- NOTE | 2018-04-10 11:44 | Progress Note ---
Subjective Date of service: 04/10/18 Interval history: CONSULT DICTATED Objective Vital Signs Temp Pulse Pulse Resp Resp BP BP 04/10/18 07:46 98.0 F 71 18 117/75 04/10/18 07:18 82 18 04/10/18 07:13 80 18 04/10/18 05:00 72 04/10/18 00:26 77 104/69 04/09/18 23:05 77 104/69 04/09/18 22:00 04/09/18 21:45 74 04/09/18 21:39 97.9 F 65 18 104/69 04/09/18 21:20 77 18 04/09/18 21:10 74 16 04/09/18 21:01 124 H 23 166/142 04/09/18 20:53 04/09/18 19:31 79 37 H 133/81 04/09/18 19:00 84 24 132/92 04/09/18 18:31 93 H 34 H 126/66 04/09/18 18:00 85 33 H 144/87 04/09/18 17:31 116 H 35 H 152/132 04/09/18 17:15 95 H 30 H 152/132 04/09/18 17:01 107 H 31 H 134/90 04/09/18 16:52 31 H 134/90 04/09/18 16:50 110 H 31 H 04/09/18 15:51 98.3 F 90 24 122/79 Pulse Ox 04/10/18 07:46 97 04/10/18 07:18 04/10/18 07:13 04/10/18 05:00 98 04/10/18 00:26 04/09/18 23:05 04/09/18 22:00 100 04/09/18 21:45 04/09/18 21:39 95 04/09/18 21:20 04/09/18 21:10 04/09/18 21:01 04/09/18 20:53 100 04/09/18 19:31 96 04/09/18 19:00 97 04/09/18 18:31 91 04/09/18 18:00 90 04/09/18 17:31 94 04/09/18 17:15 94 04/09/18 17:01 95 04/09/18 16:52 04/09/18 16:50 95 04/09/18 15:51 100 - Labs and Meds Cardiac Enzymes 04/09/18 04/10/18 Range/Units 15:44 05:13 AST 29 23 (5-40) units/L Coagulation 04/09/18 Range/Units 15:44 PT 17.3 H (12.2-14.9) Sec. INR 1.36 H (0.87-1.13) APTT 28.9 (24.2-36.6) Sec. CBC 04/09/18 04/10/18 Range/Units 15:44 05:13 WBC 8.4 6.0 (4.5-11.0) K/mm3 RBC 4.69 4.74 (3.65-5.03) M/mm3 Hgb 14.5 H 14.3 (10.1-14.3) gm/dl Hct 42.4 43.2 H (30.3-42.9) % Plt Count 109 L 98 L (140-440) K/mm3 Lymph # 0.6 L (1.2-5.4) K/mm3 [place] # 0.2 (0.0-0.8) K/mm3 Eos # 0.0 (0.0-0.4) K/mm3 Baso # 0.0 (0.0-0.1) K/mm3 Comprehensive Metabolic Panel 04/09/18 04/10/18 Range/Units 15:44 05:13 Sodium 140 141 (137-145) mmol/L Potassium 3.7 3.9 (3.6-5.0) mmol/L Chloride 103.3 99.5 (98-107) mmol/L Carbon Dioxide 21 L 22 (22-30) mmol/L BUN 21 H 22 H (7-17) mg/dL Creatinine 1.0 1.1 (0.7-1.2) mg/dL Glucose 122 H 153 H (65-100) mg/dL Calcium 9.6 8.9 (8.4-10.2) mg/dL Direct Bilirubin 0.3 H (0-0.2) mg/dL Indirect Bilirubin 0.8 mg/dL AST 29 23 (5-40) units/L ALT 35 29 (7-56) units/L Alkaline Phosphatase 108 99 (35-129) units/L Total Protein 7.0 7.1 (6.3-8.2) g/dL Albumin 4.7 4.2 (3.9-5) g/dL
[2018-04-10] MEDS: HABITROL TD SCH (11:51)
[2018-04-10] MEDS: ELIQUIS PO SCH ×2 (11:52→21:54)
[2018-04-10] MEDS: PEPCID PO SCH ×2 (11:52→21:54)
[2018-04-10] MEDS: celeXA PO SCH (11:52)
[2018-04-10] MEDS: COZAAR PO SCH (11:52)
[2018-04-10] MEDS: SODIUM CHLORIDE FLUSH SYRINGE 10 ML IV SCH ×2 (11:54→21:56)
[2018-04-10] MEDS: K-DUR PO SCH ×2 (11:58→21:55)
--- NOTE | 2018-04-10 12:11 | Progress Note ---
Assessment and Plan Assessment and plan: 72-year-old female patient with significant history of A. fib COPD congestive heart failure was admitted through emergency room with worsening shortness of breath nausea vomiting, Evaluated by cardiology medications were optimized, patient was also seen by pulmonary for acute exacerbation of COPD --Acute on chronic respiratory failure with hypoxia; Secondary to exacerbation of CHF as well as COPD exacerbation Continue oxygen titrate O2 sats to more than 90%. Pulmonary following --Acute exacerbation of COPD; oxygen nebulizers and IV steroids Antibiotics, pulmonary consulted --Acute on chronic systolic congestive heart failure; EF 40-45% Continue anti-failure medications, diuretics and beta blockers and monica inhibitors nitrates Input and output monitoring, low sodium diet --A. fib with rapid ventricular rate Continue Cardizem, closely monitor --Chronic anticoagulation with Eliquis --Dyslipidemia; stable on statin --Full CODE STATUS --DVT prophylaxis; patient on Eliquis Closely monitor the patient and adjust management as needed Disposition; follow cardiology and pulmonary recommendations Possible discharge in 1-2 days if stable History Interval history: Patient was admitted with worsening shortness of breath nausea vomiting and abdominal pain Feels slightly better today Denies nausea or vomiting, slight abdominal pain No new events reported Vital signs noted Hospitalist Physical - Constitutional Vitals: Temp Pulse Resp BP Pulse Ox 97.9 F 83 18 96/64 93 04/10/18 11:26 04/10/18 11:52 04/10/18 11:26 04/10/18 11:26 04/10/18 11:26 General appearance: Present: no acute distress, well-nourished - EENT Eyes: Present: PERRL, EOM intact - Neck Neck: Present: supple, normal ROM - Respiratory Respiratory effort: normal Respiratory: bilateral: diminished, negative: rales, rhonchi, wheezing - Cardiovascular Rhythm: regular Heart Sounds: Present: S1 & S2 - Extremities Extremities: no ischemia, No edema - Abdominal General gastrointestinal: soft, non-tender, non-distended, normal bowel sounds - Integumentary Integumentary: Present: clear, warm - Psychiatric Psychiatric: appropriate mood/affect, cooperative - Neurologic Neurologic: CNII-XII intact, moves all extremities Results - Labs CBC & Chem 7: 04/10/18 05:13 04/10/18 05:13 Labs: Laboratory Last Values WBC 6.0 K/mm3 (4.5-11.0) 04/10/18 05:13 RBC 4.74 M/mm3 (3.65-5.03) 04/10/18 05:13 Hgb 14.3 gm/dl (10.1-14.3) 04/10/18 05:13 Hct 43.2 % (30.3-42.9) H 04/10/18 05:13 MCV 91 fl (79-97) 04/10/18 05:13 MCH 30 pg (28-32) 04/10/18 05:13 MCHC 33 % (30-34) 04/10/18 05:13 RDW 15.1 % (13.2-15.2) 04/10/18 05:13 Plt Count 98 K/mm3 (140-440) L 04/10/18 05:13 Lymph % (Auto) 10.3 % (13.4-35.0) L 04/10/18 05:13 [place] % (Auto) 3.5 % (0.0-7.3) 04/10/18 05:13 Eos % (Auto) 0.0 % (0.0-4.3) 04/10/18 05:13 Baso % (Auto) 0.1 % (0.0-1.8) 04/10/18 05:13 Lymph # 0.6 K/mm3 (1.2-5.4) L 04/10/18 05:13 [place] # 0.2 K/mm3 (0.0-0.8) 04/10/18 05:13 Eos # 0.0 K/mm3 (0.0-0.4) 04/10/18 05:13 Baso # 0.0 K/mm3 (0.0-0.1) 04/10/18 05:13 Add Manual Diff Complete 04/09/18 15:44 Total Counted 100 04/09/18 15:44 Seg Neutrophils % 86.1 % (40.0-70.0) H 04/10/18 05:13 Seg Neuts % (Manual) 85.0 % (40.0-70.0) H 04/09/18 15:44 Band Neutrophils % 1.0 % 04/09/18 15:44 Lymphocytes % (Manual) 11.0 % (13.4-35.0) L 04/09/18 15:44 Reactive Lymphs % (Man) 0 % 04/09/18 15:44 Monocytes % (Manual) 3.0 % (0.0-7.3) 04/09/18 15:44 Eosinophils % (Manual) 0 % (0.0-4.3) 04/09/18 15:44 Basophils % (Manual) 0 % (0.0-1.8) 04/09/18 15:44 Metamyelocytes % 0 % 04/09/18 15:44 Myelocytes % 0 % 04/09/18 15:44 Promyelocytes % 0 % 04/09/18 15:44 Blast Cells % 0 % 04/09/18 15:44 Nucleated RBC % Not Reportable 04/09/18 15:44 Seg Neutrophils # 5.2 K/mm3 (1.8-7.7) 04/10/18 05:13 Seg Neutrophils # Man 7.1 K/mm3 (1.8-7.7) 04/09/18 15:44 Band Neutrophils # 0.1 K/mm3 04/09/18 15:44 Lymphocytes # (Manual) 0.9 K/mm3 (1.2-5.4) L 04/09/18 15:44 Abs React Lymphs (Man) 0.0 K/mm3 04/09/18 15:44 Monocytes # (Manual) 0.3 K/mm3 (0.0-0.8) 04/09/18 15:44 Eosinophils # (Manual) 0.0 K/mm3 (0.0-0.4) 04/09/18 15:44 Basophils # (Manual) 0.0 K/mm3 (0.0-0.1) 04/09/18 15:44 Metamyelocytes # 0.0 K/mm3 04/09/18 15:44 Myelocytes # 0.0 K/mm3 04/09/18 15:44 Promyelocytes # 0.0 K/mm3 04/09/18 15:44 Blast Cells # 0.0 K/mm3 04/09/18 15:44 WBC Morphology Not Reportable 04/09/18 15:44 Hypersegmented Neuts Not Reportable 04/09/18 15:44 Hyposegmented Neuts Not Reportable 04/09/18 15:44 Hypogranular Neuts Not Reportable 04/09/18 15:44 Smudge Cells Not Reportable 04/09/18 15:44 Toxic Granulation Not Reportable 04/09/18 15:44 Toxic Vacuolation Not Reportable 04/09/18 15:44 Dohle Bodies Not Reportable 04/09/18 15:44 Pelger-Huet Anomaly Not Reportable 04/09/18 15:44 Dori Rods Not Reportable 04/09/18 15:44 Platelet Estimate Consistent w auto 04/09/18 15:44 Clumped Platelets Not Reportable 04/09/18 15:44 Plt Clumps, EDTA Not Reportable 04/09/18 15:44 Large Platelets Not Reportable 04/09/18 15:44 Giant Platelets Not Reportable 04/09/18 15:44 Platelet Satelliting Not Reportable 04/09/18 15:44 Plt Morphology Comment Not Reportable 04/09/18 15:44 RBC Morphology Not Reportable 04/09/18 15:44 Dimorphic RBCs Not Reportable 04/09/18 15:44 Polychromasia Not Reportable 04/09/18 15:44 Hypochromasia Not Reportable 04/09/18 15:44 Poikilocytosis Not Reportable 04/09/18 15:44 Anisocytosis 1+ 04/09/18 15:44 Microcytosis Not Reportable 04/09/18 15:44 Macrocytosis Not Reportable 04/09/18 15:44 Spherocytes Not Reportable 04/09/18 15:44 Pappenheimer Bodies Not Reportable 04/09/18 15:44 Sickle Cells Not Reportable 04/09/18 15:44 Target Cells Not Reportable 04/09/18 15:44 Tear Drop Cells Not Reportable 04/09/18 15:44 Ovalocytes Not Reportable 04/09/18 15:44 Helmet Cells Not Reportable 04/09/18 15:44 [place] Bodies Not Reportable 04/09/18 15:44 [place] Rings Not Reportable 04/09/18 15:44 [place] Cells Not Reportable 04/09/18 15:44 Bite Cells Not Reportable 04/09/18 15:44 Crenated Cell Not Reportable 04/09/18 15:44 Elliptocytes Not Reportable 04/09/18 15:44 Acanthocytes (Spur) Not Reportable 04/09/18 15:44 Rouleaux Not Reportable 04/09/18 15:44 Hemoglobin C Crystals Not Reportable 04/09/18 15:44 Schistocytes Not Reportable 04/09/18 15:44 Malaria parasites Not Reportable 04/09/18 15:44 [place] Bodies Not Reportable 04/09/18 15:44 Hem Pathologist Commnt No 04/09/18 15:44 PT 17.3 Sec. (12.2-14.9) H 04/09/18 15:44 INR 1.36 (0.87-1.13) H 04/09/18 15:44 APTT 28.9 Sec. (24.2-36.6) 04/09/18 15:44 Sodium 141 mmol/L (137-145) 04/10/18 05:13 Potassium 3.9 mmol/L (3.6-5.0) 04/10/18 05:13 Chloride 99.5 mmol/L (98-107) 04/10/18 05:13 Carbon Dioxide 22 mmol/L (22-30) 04/10/18 05:13 Anion Gap 23 mmol/L 04/10/18 05:13 BUN 22 mg/dL (7-17) H 04/10/18 05:13 Creatinine 1.1 mg/dL (0.7-1.2) 04/10/18 05:13 Estimated GFR 49 ml/min 04/10/18 05:13 BUN/Creatinine Ratio 20 % 04/10/18 05:13 Glucose 153 mg/dL (65-100) H 04/10/18 05:13 Hemoglobin A1c 5.8 % (4-6) 04/09/18 21:49 Calcium 8.9 mg/dL (8.4-10.2) 04/10/18 05:13 Total Bilirubin 1.10 mg/dL (0.1-1.2) 04/10/18 05:13 Direct Bilirubin 0.3 mg/dL (0-0.2) H 04/09/18 15:44 Indirect Bilirubin 0.8 mg/dL 04/09/18 15:44 AST 23 units/L (5-40) 04/10/18 05:13 ALT 29 units/L (7-56) 04/10/18 05:13 Alkaline Phosphatase 99 units/L (35-129) 04/10/18 05:13 NT-Pro-B Natriuret Pep 19015 pg/mL (0-900) H 04/09/18 15:44 Total Protein 7.1 g/dL (6.3-8.2) 04/10/18 05:13 Albumin 4.2 g/dL (3.9-5) 04/10/18 05:13 Albumin/Globulin Ratio 1.4 % 04/10/18 05:13 Urine Color Yellow (Yellow) 04/09/18 19:24 Urine Turbidity Clear (Clear) 04/09/18 19:24 Urine pH 5.0 (5.0-7.0) 04/09/18 19:24 Ur Specific [place] 1.012 (1.003-1.030) 04/09/18 19:24 Urine Protein 100 mg/dl mg/dL (Negative) 04/09/18 19:24 Urine Glucose (UA) Neg mg/dL (Negative) 04/09/18 19:24 Urine Ketones Neg mg/dL (Negative) 04/09/18 19:24 Urine Blood Mod (Negative) 04/09/18 19:24 Urine Nitrite Neg (Negative) 04/09/18 19:24 Urine Bilirubin Neg (Negative) 04/09/18 19:24 Urine Urobilinogen < 2.0 mg/dL (<2.0) 04/09/18 19:24 Ur Leukocyte Esterase Neg (Negative) 04/09/18 19:24 Urine WBC (Auto) 2.0 /HPF (0.0-6.0) 04/09/18 19:24 Urine RBC (Auto) 7.0 /HPF (0.0-6.0) 04/09/18 19:24 U Epithel Cells (Auto) 1.0 /HPF (0-13.0) 04/09/18 19:24 Urine Mucus Few /HPF 04/09/18 19:24
--- NOTE | 2018-04-10 14:05 | Consultation ---
HISTORY OF PRESENT ILLNESS: The patient is a 72-year-old female who was admitted with shortness of breath, severe headache, and chest pain. The patient is a poor historian and does not see a multimedia engineer regularly, although the chart describes LV dysfunction and a previous catheterization showing minimal coronary artery disease and she also has atrial fibrillation. She is a smoker and she has COPD. She presented with a severe headache that has resolved, shortness of breath, chest pain, nausea and vomiting. She is minimally active and does not describe any angina or ankle edema. She does have leg pain. She states that the inhalers at home did not resolve her symptoms. She did not describe any infectious symptoms or sputum production. She did not describe any focal neurologic symptoms. She does not follow a diet. She does not check her own blood pressure. She has had no palpitations or dizziness. Although the ER record describes chest pain, she denies any chest pain at this time, but she is disoriented. SOCIAL HISTORY: Smoking: One half pack per day. Alcohol: No heavy use. OPERATIONS: Breast surgery. MEDICATIONS: See the nurse's list. ALLERGIES: None listed. FAMILY HISTORY: Noncontributory. REVIEW OF SYSTEMS: The chart describes heart catheterization with an EF of 40-45% and minimal coronary artery disease, the date of the catheterization is not listed. She has hypertension, hyperlipidemia, and reflux. She is known to Dr. Salgado in [place]. The headache is a new issue. She does not describe any other complaints or medical problems at this time. PHYSICAL EXAMINATION: GENERAL: Well-developed, slender, in no acute distress. Alert, cooperative, but disoriented. HEENT: Unremarkable. NECK: Reveals JVD. There are no bruits. Neck is supple, no masses. LUNGS: Diffuse decrease in breath sounds with a few scattered crackles. No rhonchi. HEART: Irregular rhythm. No rubs, murmurs, or gallops appreciable. ABDOMEN: Soft, nontender, no masses. EXTREMITIES: No cyanosis, clubbing, or edema. Peripheral pulses are intact, but diminished. NEUROLOGIC: Symmetrical. SKIN: Clear. DIAGNOSTIC DATA: EKG, pending. IMPRESSION: 1. Shortness of breath with jugular venous distension and elevated BNP suggesting acute heart failure, which is probably diastolic, improved. 2. Chronic obstructive pulmonary disease. 3. History of chest pain, minimal coronary artery disease was noted at a previous catheterization, chest pain has resolved. 4. Mild thrombocytopenia. 5. Nicotine dependence. 6. Hyperlipidemia. 7. Chronic atrial fibrillation, on appropriate therapy. 8. Symptoms suggestive of dementia. 9. History of reflux. 10. History of stroke 5 months ago. 11. Hyperlipidemia, controlled. 12. New onset of headaches, resolved since admission. 13. Symptoms suggestive of claudication. PLAN: Treat for congestive heart failure. Check previous cardiac workup. Discourage smoking. Conservative therapy given the patient's age and probable dementia. JOB# [id number] JDS/NTS
[2018-04-10] MEDS ORDERED: NON-FORMULARY (Lovastatin [Altoprev] 20 MG) PO SCH (18:00)
[2018-04-10] MEDS: BROVANA NEBU IH SCH (19:42)
[2018-04-10] MEDS: PULMICORT IH SCH (19:42)
--- NOTE | 2018-04-10 20:15 | Consultation ---
PULMONARY CRITICAL CARE CONSULT NOTE CONSULTING PHYSICIAN: Dr. Goss. This is in coverage for Dr. Vasquez. REASON FOR CONSULTATION: COPD exacerbation. CHIEF COMPLAINT AND HISTORY OF PRESENT ILLNESS: The patient is a 72-year-old female with past medical history significant amongst other things for a diagnosis of COPD as well as congestive heart failure who states she is only on what she describes as albuterol treatments in inhaler and nebulizer form and also has a 20+ pack year tobacco smoking history who came in complaining about 2 days of increasing shortness of breath, cough without significant expectoration. Denied hemoptysis. Complained of mild pleuritic component to the cough with right-sided chest pain. Denied fevers or chills. Denied any night sweats. Denied sick contacts. Denied any noncompliance with her medications. She came into the Emergency Room to be evaluated for these symptoms and was admitted with a diagnosis of COPD exacerbation. We are asked to assist with management. When I stopped by to see her, she was resting in bed, feels a little bit better. She was on supplemental oxygen. She denied being on any home oxygen. She denied any new lumps, bumps, or swellings on her body, in particular denied any new leg pain or swelling either unilaterally or bilaterally. Denied any recent long distance travel. She does not have a product delivery specialist that she sees in town. She continues to smoke about half a pack of cigarettes per day. She did admit to one episode of vomiting yesterday without overt aspiration. Again, she mentions she is compliant with her medications. That really is as much of the history of presentation as I have. She does admit to intermittent hospitalizations, but again states she does not have a product delivery specialist. The dyspnea on exertion is above her baseline and the chest pain was about 3-4/10. PAST MEDICAL HISTORY: Hypertension, history of coronary artery disease, history of congestive heart failure, ejection fraction 40-45%, history of COPD, history of atrial fibrillation, history of pneumonia in the past. PAST SURGICAL HISTORY: She has had breast surgery in the past. MEDICATIONS: She was on at the time I stopped by to see were reviewed. Pertinent medications included the following: DuoNeb treatments nebulized q.i.d. She was on IV amiodarone drip. She was on Eliquis 5 mg p.o. q.12h. scheduled, Celexa 20 mg p.o. daily, digoxin 0.25 mg p.o. daily, Pepcid 10 mg p.o. b.i.d., Lasix 40 mg IV b.i.d., Levaquin 750 mg IV q. 48 hours, Cozaar 25 mg p.o. daily, Solu-Medrol 60 mg IV every 8 hours, metoprolol 50 mg p.o. daily p.r.n., morphine 2 mg IV q.4 hours p.r.n. moderate pain. She is on 21 mg per day nicotine patch. She is on Zofran 4 mg IV q 8 hours p.r.n. nausea and vomiting, Pravachol 20 mg p.o. at bedtime, and p.r.n. Ambien. ALLERGIES: No known drug allergies. DIET: Thin lady. She has lost about 5 pounds at most in the past 3 months. Denies any loss of appetite. FAMILY AND SOCIAL HISTORY: Lives in the community, 20+ pack year tobacco smoking history. Denies alcohol or illicit drug use or abuse. Family history, otherwise noncontributory. REVIEW OF SYSTEMS: No loss of consciousness. No new onset seizures. No new onset focal weakness. No gross hematochezia or melena. No gross hematuria, no hematemesis, no hemoptysis. No polyuria or polydipsia, no heat or cold intolerance. Complete 13-system review of systems obtained. Pertinent positives and/or negatives as in body of history above, otherwise they are noncontributory. PHYSICAL EXAMINATION: VITAL SIGNS: On examination and since, she has been afebrile, admission temperature 98.3 degrees Fahrenheit with a pulse of 90, respiratory rate was as high as 31, blood pressure 122/79, oxygen sats were 95%, inspired oxygen concentration at that time was not recorded. At the time I saw her, she was on about 3 liters nasal cannula with 93% O2 sats. GENERAL: She is elderly looking female, thin, bordering on cachectic. Normocephalic, atraumatic, talking to me in mostly full sentences with mildly increased respiratory effort. HEAD, EYES, EARS, NOSE AND THROAT: She is anicteric. No conjunctival erythema. Oropharynx is moist, is a Mallampati #2. No thyromegaly, no jugular venous distention. Grossly, there are no palpable lymph nodes in the supraclavicular or submandibular lymph node chains. LUNGS: Auscultation of both lung jimenez significant mostly for diminished bilateral breath sounds, prolonged expiratory phase. Occasional rhonchi at the bases. No active wheezing. HEART: Heart sounds 1 and 2 are heard at the time of my evaluation, irregular in rate and rhythm. No rubs or murmurs. ABDOMEN: Soft, full, bowel sounds are positive, nontender. EXTREMITIES: Without overt digital clubbing or cyanosis. No pedal edema. Dorsalis pedis pulses are palpable bilaterally. NEUROLOGIC: Pupils are equal, round about 3-4 mm, reactive to light. Extraocular muscle movements were intact. She moved all 4 extremities spontaneously. SKIN: Poor turgor. It was dry without cellulitis or rash. LABORATORY AND DIAGNOSTIC DATA: On admission, white count 8400, hemoglobin 14.5, hematocrit 42.4, platelet count was 109. No band forms. INR was 1.36. Serum sodium was 140, potassium 3.7, chloride 103, bicarb 21, BUN 21, creatinine 1.0, glucose 122. Liver function tests essentially within normal limits. BNP was elevated at 1,128. Urinalysis was negative for nitrites and leukocyte esterase. She did have moderate blood. Bicarb is now within normal limits. No microbiology studies. Chest x-ray has been reviewed. I have also reviewed the radiologist's interpretation on the CT scan of the head. The CT of the head is read as chronic ischemic changes. The chest x-ray shows evidence of hyperinflation, however, no focal infiltrates. Borderline cardiomegaly, no gross pneumothorax. ASSESSMENT: 1. Acute hypoxemic respiratory failure. 2. Acute chronic obstructive pulmonary disease exacerbation. 3. Tobacco use disorder. 4. Acute congestive heart failure exacerbation. 5. History of coronary artery disease. 6. Hypertension. 7. Atrial fibrillation with rapid ventricular response at presentation. 8. Adult failure to thrive. PLAN: I have strongly counseled her against tobacco smoking. Encouraged abstinence, explained the benefits she will get from quitting tobacco even at this point. I spent about 10 minutes counseling her. In the meantime, we will continue current medications. We need to renally adjust her Levaquin by which I mean. She probably might be able to tolerate Levaquin at daily dosing. Sputum will be sent for Gram stain, cultures and sensitivities. We will continue systemic steroids, but taper to 40 mg IV q. 12 hours. I will in the meantime add inhaled long acting bronchodilators as well as corticosteroids. Continue anticoagulation for her atrial fibrillation. I will not pursue a venous thromboembolic disorder workup, especially with her being on chronic anticoagulation. She is appropriately on GI prophylaxis. Flu and pneumonia vaccinations seem to be up to date by her history and will be addressed per protocol. I will defer to Cardiology in terms of rate control. Thank you very much for the consult. We will follow along and make further recommendations as the picture progresses/becomes clearer. JOB# [id number] LYNDA/NANNETTE
[2018-04-10] MEDS: LANOXIN PO SCH (21:54)
[2018-04-10] MEDS: PRAVACHOL PO SCH (21:54)
[2018-04-11] MEDS: SOLU-Medrol IV SCH ×2 (04:45→21:53)
[2018-04-11 06:16] LABS: Basophils % (Auto) 0.1 % (0.0-1.8); Hematocrit 41.4 % (30.3-42.9); Lymphocytes # (Auto) 0.6 K/mm3 (1.2-5.4); Lymphocytes % (Auto) 5.3 % (13.4-35.0); Mean Corpuscular HGB Conc 34 % (30-34); Mean Corpuscular Hemoglobin 31 pg (28-32); Mean Corpuscular Volume 91 fl (79-97); Monocytes # (Auto) 0.8 K/mm3 (0.0-0.8); Monocytes % (Auto) 6.2 % (0.0-7.3); Red Blood Count 4.57 M/mm3 (3.65-5.03); Red Cell Distribution Width 15.2 % (13.2-15.2)
[2018-04-11] MEDS: LASIX IV SCH ×3 (06:16→09:33)
[2018-04-11 06:26] LABS: Platelet Count 95 K/mm3 (140-440)
[2018-04-11] MEDS: K-DUR PO SCH ×2 (09:09→21:52)
[2018-04-11] MEDS: celeXA PO SCH (09:11)
[2018-04-11] MEDS: DUONEB *Not for PRN Use IH SCH ×3 (09:12→16:14)
[2018-04-11] MEDS: COZAAR PO SCH (09:12)
[2018-04-11] MEDS: BROVANA NEBU IH SCH ×2 (09:13→21:21)
[2018-04-11] MEDS: ELIQUIS PO SCH ×2 (09:13→21:51)
[2018-04-11] MEDS: PULMICORT IH SCH ×2 (09:13→21:21)
--- NOTE | 2018-04-11 09:14 | Progress Note ---
Assessment and Plan Assessment and plan: 72-year-old female patient with significant history of A. fib COPD congestive heart failure was admitted through emergency room with worsening shortness of breath nausea vomiting, Evaluated by cardiology medications were optimized, patient was also seen by pulmonary for acute exacerbation of COPD --Acute on chronic respiratory failure with hypoxia; mild improvement of symptoms Secondary to exacerbation of CHF as well as COPD exacerbation Continue oxygen titrate O2 sats to more than 90%. Evaluate for home oxygen --Acute exacerbation of COPD; oxygen nebulizers and IV steroids Antibiotics, pulmonary consulted --Acute on chronic systolic congestive heart failure; EF 40-45% Continue anti-failure medications, diuretics and beta blockers and monica inhibitors nitrates Input and output monitoring, low sodium diet --A. fib with rapid ventricular rate Continue Cardizem, closely monitor --Chronic anticoagulation with Eliquis --Dyslipidemia; stable on statin --Ongoing tobacco use; counseling, nicotine patch as needed --Full CODE STATUS --DVT prophylaxis; patient on Eliquis Closely monitor the patient and adjust management as needed Evaluation for home oxygen Smoking cessation counseling Disposition; follow cardiology and pulmonary recommendations Possible discharge in 1-2 days if stable History Interval history: Patient seen and examined medical records reviewed Patient feels better shortness of breath significantly improved Denies chest pain, no new complaints Alert awake oriented 3, vital signs reviewed Hospitalist Physical - Constitutional Vitals: Temp Pulse Resp BP Pulse Ox 98.2 F 66 20 100/72 100 04/11/18 09:09 04/11/18 09:09 04/11/18 09:09 04/11/18 09:09 04/11/18 09:09 General appearance: Present: no acute distress, well-nourished - EENT Eyes: Present: PERRL, EOM intact - Neck Neck: Present: supple, normal ROM - Respiratory Respiratory effort: normal Respiratory: bilateral: diminished, rhonchi, negative: rales - Cardiovascular Rhythm: regular Heart Sounds: Present: S1 & S2 - Extremities Extremities: no ischemia, No edema - Abdominal General gastrointestinal: soft, non-tender, non-distended, normal bowel sounds - Integumentary Integumentary: Present: clear, warm - Psychiatric Psychiatric: appropriate mood/affect, cooperative - Neurologic Neurologic: CNII-XII intact, moves all extremities Results - Labs CBC & Chem 7: 04/11/18 04:55 04/11/18 04:55 Labs: Laboratory Last Values WBC 12.2 K/mm3 (4.5-11.0) H 04/11/18 04:55 RBC 4.57 M/mm3 (3.65-5.03) 04/11/18 04:55 Hgb 14.0 gm/dl (10.1-14.3) 04/11/18 04:55 Hct 41.4 % (30.3-42.9) 04/11/18 04:55 MCV 91 fl (79-97) 04/11/18 04:55 MCH 31 pg (28-32) 04/11/18 04:55 MCHC 34 % (30-34) 04/11/18 04:55 RDW 15.2 % (13.2-15.2) 04/11/18 04:55 Plt Count 95 K/mm3 (140-440) L 04/11/18 04:55 Lymph % (Auto) 5.3 % (13.4-35.0) L 04/11/18 04:55 [place] % (Auto) 6.2 % (0.0-7.3) 04/11/18 04:55 Eos % (Auto) 0.0 % (0.0-4.3) 04/11/18 04:55 Baso % (Auto) 0.1 % (0.0-1.8) 04/11/18 04:55 Lymph # 0.6 K/mm3 (1.2-5.4) L 04/11/18 04:55 [place] # 0.8 K/mm3 (0.0-0.8) 04/11/18 04:55 Eos # 0.0 K/mm3 (0.0-0.4) 04/11/18 04:55 Baso # 0.0 K/mm3 (0.0-0.1) 04/11/18 04:55 Add Manual Diff Complete 04/09/18 15:44 Total Counted 100 04/09/18 15:44 Seg Neutrophils % 88.4 % (40.0-70.0) H 04/11/18 04:55 Seg Neuts % (Manual) 85.0 % (40.0-70.0) H 04/09/18 15:44 Band Neutrophils % 1.0 % 04/09/18 15:44 Lymphocytes % (Manual) 11.0 % (13.4-35.0) L 04/09/18 15:44 Reactive Lymphs % (Man) 0 % 04/09/18 15:44 Monocytes % (Manual) 3.0 % (0.0-7.3) 04/09/18 15:44 Eosinophils % (Manual) 0 % (0.0-4.3) 04/09/18 15:44 Basophils % (Manual) 0 % (0.0-1.8) 04/09/18 15:44 Metamyelocytes % 0 % 04/09/18 15:44 Myelocytes % 0 % 04/09/18 15:44 Promyelocytes % 0 % 04/09/18 15:44 Blast Cells % 0 % 04/09/18 15:44 Nucleated RBC % Not Reportable 04/09/18 15:44 Seg Neutrophils # 10.8 K/mm3 (1.8-7.7) H 04/11/18 04:55 Seg Neutrophils # Man 7.1 K/mm3 (1.8-7.7) 04/09/18 15:44 Band Neutrophils # 0.1 K/mm3 04/09/18 15:44 Lymphocytes # (Manual) 0.9 K/mm3 (1.2-5.4) L 04/09/18 15:44 Abs React Lymphs (Man) 0.0 K/mm3 04/09/18 15:44 Monocytes # (Manual) 0.3 K/mm3 (0.0-0.8) 04/09/18 15:44 Eosinophils # (Manual) 0.0 K/mm3 (0.0-0.4) 04/09/18 15:44 Basophils # (Manual) 0.0 K/mm3 (0.0-0.1) 04/09/18 15:44 Metamyelocytes # 0.0 K/mm3 04/09/18 15:44 Myelocytes # 0.0 K/mm3 04/09/18 15:44 Promyelocytes # 0.0 K/mm3 04/09/18 15:44 Blast Cells # 0.0 K/mm3 04/09/18 15:44 WBC Morphology Not Reportable 04/09/18 15:44 Hypersegmented Neuts Not Reportable 04/09/18 15:44 Hyposegmented Neuts Not Reportable 04/09/18 15:44 Hypogranular Neuts Not Reportable 04/09/18 15:44 Smudge Cells Not Reportable 04/09/18 15:44 Toxic Granulation Not Reportable 04/09/18 15:44 Toxic Vacuolation Not Reportable 04/09/18 15:44 Dohle Bodies Not Reportable 04/09/18 15:44 Pelger-Huet Anomaly Not Reportable 04/09/18 15:44 Dori Rods Not Reportable 04/09/18 15:44 Platelet Estimate Consistent w auto 04/09/18 15:44 Clumped Platelets Not Reportable 04/09/18 15:44 Plt Clumps, EDTA Not Reportable 04/09/18 15:44 Large Platelets Not Reportable 04/09/18 15:44 Giant Platelets Not Reportable 04/09/18 15:44 Platelet Satelliting Not Reportable 04/09/18 15:44 Plt Morphology Comment Not Reportable 04/09/18 15:44 RBC Morphology Not Reportable 04/09/18 15:44 Dimorphic RBCs Not Reportable 04/09/18 15:44 Polychromasia Not Reportable 04/09/18 15:44 Hypochromasia Not Reportable 04/09/18 15:44 Poikilocytosis Not Reportable 04/09/18 15:44 Anisocytosis 1+ 04/09/18 15:44 Microcytosis Not Reportable 04/09/18 15:44 Macrocytosis Not Reportable 04/09/18 15:44 Spherocytes Not Reportable 04/09/18 15:44 Pappenheimer Bodies Not Reportable 04/09/18 15:44 Sickle Cells Not Reportable 04/09/18 15:44 Target Cells Not Reportable 04/09/18 15:44 Tear Drop Cells Not Reportable 04/09/18 15:44 Ovalocytes Not Reportable 04/09/18 15:44 Helmet Cells Not Reportable 04/09/18 15:44 [place] Bodies Not Reportable 04/09/18 15:44 [place] Rings Not Reportable 04/09/18 15:44 [place] Cells Not Reportable 04/09/18 15:44 Bite Cells Not Reportable 04/09/18 15:44 Crenated Cell Not Reportable 04/09/18 15:44 Elliptocytes Not Reportable 04/09/18 15:44 Acanthocytes (Spur) Not Reportable 04/09/18 15:44 Rouleaux Not Reportable 04/09/18 15:44 Hemoglobin C Crystals Not Reportable 04/09/18 15:44 Schistocytes Not Reportable 04/09/18 15:44 Malaria parasites Not Reportable 04/09/18 15:44 [place] Bodies Not Reportable 04/09/18 15:44 Hem Pathologist Commnt No 04/09/18 15:44 PT 17.3 Sec. (12.2-14.9) H 04/09/18 15:44 INR 1.36 (0.87-1.13) H 04/09/18 15:44 APTT 28.9 Sec. (24.2-36.6) 04/09/18 15:44 Sodium 142 mmol/L (137-145) 04/11/18 04:55 Potassium 4.7 mmol/L (3.6-5.0) D 04/11/18 04:55 Chloride 102.1 mmol/L (98-107) 04/11/18 04:55 Carbon Dioxide 26 mmol/L (22-30) 04/11/18 04:55 Anion Gap 19 mmol/L 04/11/18 04:55 BUN 46 mg/dL (7-17) H 04/11/18 04:55 Creatinine 1.4 mg/dL (0.7-1.2) H 04/11/18 04:55 Estimated GFR 37 ml/min 04/11/18 04:55 BUN/Creatinine Ratio 33 % 04/11/18 04:55 Glucose 117 mg/dL (65-100) H 04/11/18 04:55 Hemoglobin A1c 5.8 % (4-6) 04/09/18 21:49 Calcium 9.0 mg/dL (8.4-10.2) 04/11/18 04:55 Total Bilirubin 1.10 mg/dL (0.1-1.2) 04/10/18 05:13 Direct Bilirubin 0.3 mg/dL (0-0.2) H 04/09/18 15:44 Indirect Bilirubin 0.8 mg/dL 04/09/18 15:44 AST 23 units/L (5-40) 04/10/18 05:13 ALT 29 units/L (7-56) 04/10/18 05:13 Alkaline Phosphatase 99 units/L (35-129) 04/10/18 05:13 NT-Pro-B Natriuret Pep 50890 pg/mL (0-900) H 04/09/18 15:44 Total Protein 7.1 g/dL (6.3-8.2) 04/10/18 05:13 Albumin 4.2 g/dL (3.9-5) 04/10/18 05:13 Albumin/Globulin Ratio 1.4 % 04/10/18 05:13 Urine Color Yellow (Yellow) 04/09/18 19:24 Urine Turbidity Clear (Clear) 04/09/18 19:24 Urine pH 5.0 (5.0-7.0) 04/09/18 19:24 Ur Specific [place] 1.012 (1.003-1.030) 04/09/18 19:24 Urine Protein 100 mg/dl mg/dL (Negative) 04/09/18 19:24 Urine Glucose (UA) Neg mg/dL (Negative) 04/09/18 19:24 Urine Ketones Neg mg/dL (Negative) 04/09/18 19:24 Urine Blood Mod (Negative) 04/09/18 19:24 Urine Nitrite Neg (Negative) 04/09/18 19:24 Urine Bilirubin Neg (Negative) 04/09/18 19:24 Urine Urobilinogen < 2.0 mg/dL (<2.0) 04/09/18 19:24 Ur Leukocyte Esterase Neg (Negative) 04/09/18 19:24 Urine WBC (Auto) 2.0 /HPF (0.0-6.0) 04/09/18 19:24 Urine RBC (Auto) 7.0 /HPF (0.0-6.0) 04/09/18 19:24 U Epithel Cells (Auto) 1.0 /HPF (0-13.0) 04/09/18 19:24 Urine Mucus Few /HPF 04/09/18 19:24
[2018-04-11] MEDS: HABITROL TD SCH (09:20)
[2018-04-11] MEDS: SODIUM CHLORIDE FLUSH SYRINGE 10 ML IV SCH ×2 (09:21→21:55)
[2018-04-11] MEDS: PEPCID PO SCH ×2 (09:21→21:54)
[2018-04-11] MEDS: TOPROL XL PO SCH (09:21)
--- NOTE | 2018-04-11 13:20 | Progress Note ---
Assessment and Plan - Patient Problems (1) Nonischemic dilated cardiomyopathy Current Visit: Yes Status: Acute Plan to address problem: Patient is comfortable in no acute distress. She has a history of a nonischemic cardiomyopathy, cardiac catheterization 8 months ago demonstrated the absence of coronary disease. An echocardiogram 2 months ago reported left ventricular ejection fraction 20-25%. She is on oral anticoagulation for paroxysmal atrial fibrillation. She was admitted at this time with complaints of headache, single episode of vomiting, and elevated blood pressure with a systolic of 185. There were no symptoms suggestive of heart failure or fluid overload. The chest x-ray showed a massive cardiomegaly, but otherwise clear lungs. Continue medical therapy for nonischemic cardiomyopathy, and oral anticoagulation for paroxysmal atrial fibrillation. Subjective Date of service: 04/11/18 Interval history: Patient is comfortable in no acute distress. She has a history of a nonischemic cardiomyopathy, cardiac catheterization 8 months ago demonstrated the absence of coronary disease. An echocardiogram 2 months ago reported left ventricular ejection fraction 20-25%. She is on oral anticoagulation for paroxysmal atrial fibrillation. She was admitted at this time with complaints of headache, single episode of vomiting, and elevated blood pressure with a systolic of 185. There were no symptoms suggestive of heart failure or fluid overload. The chest x-ray showed a massive cardiomegaly, but otherwise clear lungs. Objective Vital Signs Temp Pulse Pulse Pulse Pulse Resp Resp 04/11/18 11:45 97.9 F 82 04/11/18 10:00 04/11/18 09:24 04/11/18 09:21 04/11/18 09:18 04/11/18 09:14 73 75 04/11/18 09:12 04/11/18 09:09 98.2 F 66 04/11/18 07:56 98.2 F 64 04/11/18 05:00 77 04/11/18 04:33 98.3 F 20 04/10/18 23:50 98.3 F 46 L 04/10/18 21:54 89 04/10/18 21:18 04/10/18 21:00 88 04/10/18 19:57 66 04/10/18 19:44 04/10/18 19:42 64 04/10/18 19:28 98.1 F 79 04/10/18 15:35 98.3 F 86 18 04/10/18 13:26 88 18 04/10/18 13:18 85 18 Resp BP BP Pulse Ox 04/11/18 11:45 97/71 97 04/11/18 10:00 04/11/18 09:24 04/11/18 09:21 100/72 04/11/18 09:18 96 04/11/18 09:14 18 04/11/18 09:12 100/72 04/11/18 09:09 100/72 100 04/11/18 07:56 100/72 100 04/11/18 05:00 04/11/18 04:33 97/56 04/10/18 23:50 90/54 96 04/10/18 21:54 94/59 04/10/18 21:18 100 04/10/18 21:00 04/10/18 19:57 04/10/18 19:44 98 04/10/18 19:42 04/10/18 19:28 88/51 97 04/10/18 15:35 98/68 98 04/10/18 13:26 04/10/18 13:18 - Physical Examination General: Appears Well, No Apparent Distress HEENT: Positive: PERRL Cardiac: Positive: Reg Rate and Rhythm Lungs: Positive: Decreased Breath Sounds Neuro: Positive: Grossly Intact Abdomen: Positive: Soft Skin: Positive: Clear Extremities: Absent: edema - Labs and Meds CBC 04/11/18 Range/Units 04:55 WBC 12.2 H (4.5-11.0) K/mm3 RBC 4.57 (3.65-5.03) M/mm3 Hgb 14.0 (10.1-14.3) gm/dl Hct 41.4 (30.3-42.9) % Plt Count 95 L (140-440) K/mm3 Lymph # 0.6 L (1.2-5.4) K/mm3 [place] # 0.8 (0.0-0.8) K/mm3 Eos # 0.0 (0.0-0.4) K/mm3 Baso # 0.0 (0.0-0.1) K/mm3 Comprehensive Metabolic Panel 04/11/18 Range/Units 04:55 Sodium 142 (137-145) mmol/L Potassium 4.7 D (3.6-5.0) mmol/L Chloride 102.1 (98-107) mmol/L Carbon Dioxide 26 (22-30) mmol/L BUN 46 H (7-17) mg/dL Creatinine 1.4 H (0.7-1.2) mg/dL Glucose 117 H (65-100) mg/dL Calcium 9.0 (8.4-10.2) mg/dL
--- NOTE | 2018-04-11 17:29 | Progress Note ---
Assessment and Plan -Acute on chronic respiratory failure with hypoxia; -AE-COPD -Acute on chronic systolic congestive heart failure; EF 40-45% -A. fib with rapid ventricular rate -Chronic anticoagulation with Eliquis -Dyslipidemia Protein calorie malnutrition -Bronchodilators -Supplemental oxygen to keep O2 sats>88% -Antibiotics -VTE prophylaxis--anticoagulation on Eliquis -Nicotine withdrawal precautions -Smoking cessation counselling -Steroids -Accucheck with glycemic control -Home oxygen evaluation prior to discharge -Nutritional support and supportive care CODE STATUS Subjective Date of service: 04/11/18 Interval history: Patient is seen today for: Acute hypoxic respiratory failure, AE-COPD, Tobacco abuse disorder/nicotine dependence Seen and examined at bedside; 24hour events reviewed; nursing and respiratory care staff consulted; no adverse overnight events reported to me Much improved. Denies any chest pain, no shortness of breath, No nausea, no vomiting, no fevers. Objective - Exam Narrative Exam: General appearance: Present: no acute distress, chronically ill looking - EENT Eyes: Present: PERRL, EOM intact - Neck Neck: Present: supple, normal ROM - Respiratory Respiratory effort: normal Respiratory: bilateral: diminished, long expiratory phase - Cardiovascular Rhythm: regular Heart Sounds: Present: S1 & S2, no murmurs, no gallops - Extremities Extremities: no ischemia, No edema - Abdominal General gastrointestinal: soft, non-tender, non-distended, normal bowel sounds No hepatosplenomegaly - Integumentary Integumentary: Present: clear, warm - Psychiatric Psychiatric: appropriate mood/affect, cooperative - Neurologic Neurologic: CNII-XII intact, moves all extremities Vital Signs - 12hr 04/11/18 04/11/18 04/11/18 07:56 09:09 09:12 Temperature 98.2 F 98.2 F Pulse Rate 64 66 88 Pulse Rate [ Anterior Bilateral Throughout] Pulse Rate [ Bilateral] Pulse Rate [ Right Radial] Respiratory 18 20 Rate Respiratory Rate [Anterior Bilateral Throughout] Respiratory Rate [Bilateral ] Blood Pressure 100/72 100/72 Blood Pressure 100/72 [Left] O2 Sat by Pulse 100 100 Oximetry 04/11/18 04/11/18 04/11/18 09:14 09:18 09:21 Temperature Pulse Rate 88 Pulse Rate [ 73 Anterior Bilateral Throughout] Pulse Rate [ 75 Bilateral] Pulse Rate [ Right Radial] Respiratory Rate Respiratory 18 Rate [Anterior Bilateral Throughout] Respiratory 18 Rate [Bilateral ] Blood Pressure 100/72 Blood Pressure [Left] O2 Sat by Pulse 96 Oximetry 04/11/18 04/11/18 04/11/18 09:24 10:00 11:45 Temperature 97.9 F Pulse Rate 88 82 Pulse Rate [ Anterior Bilateral Throughout] Pulse Rate [ Bilateral] Pulse Rate [ 88 Right Radial] Respiratory 18 Rate Respiratory Rate [Anterior Bilateral Throughout] Respiratory Rate [Bilateral ] Blood Pressure 97/71 Blood Pressure [Left] O2 Sat by Pulse 97 Oximetry 04/11/18 04/11/18 14:42 16:47 Temperature 97.9 F Pulse Rate 78 Pulse Rate [ 80 Anterior Bilateral Throughout] Pulse Rate [ 80 Bilateral] Pulse Rate [ Right Radial] Respiratory 18 Rate Respiratory 18 Rate [Anterior Bilateral Throughout] Respiratory 18 Rate [Bilateral ] Blood Pressure 110/65 Blood Pressure [Left] O2 Sat by Pulse 97 Oximetry CBC and BMP: 04/12/18 04:46 04/12/18 04:46 ABG, PT/INR, D-dimer: PT/INR, D-dimer PT 17.3 Sec. (12.2-14.9) H 04/09/18 15:44 INR 1.36 (0.87-1.13) H 04/09/18 15:44 Abnormal lab findings: Abnormal Labs 04/09/18 04/09/18 04/09/18 15:44 15:44 15:44 WBC Hgb 14.5 H Hct Plt Count 109 L Lymph % (Auto) Lymph # Seg Neutrophils % Seg Neuts % (Manual) 85.0 H Lymphocytes % (Manual) 11.0 L Seg Neutrophils # Lymphocytes # (Manual) 0.9 L PT 17.3 H INR 1.36 H Carbon Dioxide 21 L BUN 21 H Creatinine Glucose 122 H Direct Bilirubin 0.3 H NT-Pro-B Natriuret Pep 13511 H 04/10/18 04/10/18 04/11/18 05:13 05:13 04:55 WBC 12.2 H Hgb Hct 43.2 H Plt Count 98 L 95 L Lymph % (Auto) 10.3 L 5.3 L Lymph # 0.6 L 0.6 L Seg Neutrophils % 86.1 H 88.4 H Seg Neuts % (Manual) Lymphocytes % (Manual) Seg Neutrophils # 10.8 H Lymphocytes # (Manual) PT INR Carbon Dioxide BUN 22 H Creatinine Glucose 153 H Direct Bilirubin NT-Pro-B Natriuret Pep 04/11/18 04:55 WBC Hgb Hct Plt Count Lymph % (Auto) Lymph # Seg Neutrophils % Seg Neuts % (Manual) Lymphocytes % (Manual) Seg Neutrophils # Lymphocytes # (Manual) PT INR Carbon Dioxide BUN 46 H Creatinine 1.4 H Glucose 117 H Direct Bilirubin NT-Pro-B Natriuret Pep
[2018-04-11] MEDS: PRAVACHOL PO SCH (21:51)
[2018-04-11] MEDS: LANOXIN PO SCH (21:52)
[2018-04-11] MEDS: LEVAQUIN 750MG/150ML 750 MG/150 ML BAG IV SCH (21:54)
[2018-04-12 06:06] LABS: Calcium 8.9 mg/dL (8.4-10.2)
[2018-04-12 06:07] LABS: Hematocrit 41.4 % (30.3-42.9); Hemoglobin 13.8 gm/dl (10.1-14.3); Mean Corpuscular HGB Conc 33 % (30-34); Mean Corpuscular Hemoglobin 31 pg (28-32); Mean Corpuscular Volume 92 fl (79-97); Platelet Count 118 K/mm3 (140-440); Red Cell Distribution Width 15.3 % (13.2-15.2)
[2018-04-12] MEDS: SOLU-Medrol IV SCH ×2 (06:33→16:32)
[2018-04-12 08:14] LABS: Basophils % (Manual) 0 % (0.0-1.8); Eosinophils % (Manual) 0 % (0.0-4.3); Total Cells Counted 100
[2018-04-12 08:15] LABS: Anisocytosis Few; Ovalocytes Rare; Platelet Estimate Consistent w Auto
[2018-04-12] MEDS: BROVANA NEBU IH SCH (08:52)
[2018-04-12] MEDS: PULMICORT IH SCH (08:52)
[2018-04-12] MEDS: COZAAR PO SCH (10:45)
[2018-04-12] MEDS: celeXA PO SCH (10:45)
[2018-04-12] MEDS: TOPROL XL PO SCH (10:47)
[2018-04-12] MEDS: HABITROL TD SCH (10:47)
[2018-04-12] MEDS: ELIQUIS PO SCH (10:47)
[2018-04-12] MEDS: LASIX IV SCH (10:48)
[2018-04-12] MEDS: SODIUM CHLORIDE FLUSH SYRINGE 10 ML IV SCH (10:49)
[2018-04-12] MEDS: K-DUR PO SCH (10:52)
--- NOTE | 2018-04-12 11:06 | Progress Note ---
Assessment and Plan Assessment: Acute respiratory failure - improving Acute copd exacerbation - improving Chronic systolic heart failure NICMP Accelerated HTN - improving Chronic atrial fibrillation - anticoagulated with Eliquis Left bundle branch block Malnutrition Tobacco use - cessation encouraged H/o CVA Plan: Currently stable cardiac status. Pt may discharge home from cardiology standpoint. Cont home cardiac regimen. Recommend follow up in our office with Dr. Cruz within 1-2 weeks of hospital discharge ([phone]). The patient has been seen in conjunction with Dr. EMERALD Benjamin who agrees with the assessment and plan of care. Subjective Date of service: 04/12/18 Principal diagnosis: COPD exacerbation Interval history: Pt lying flat comfortably in bed, no current complaints. tele reviewed - pt in AFib with CVR. Objective Last Vital Signs Temp 97.9 F 04/12/18 07:31 Pulse 88 04/12/18 10:47 Resp 18 04/12/18 09:07 BP 102/70 04/12/18 10:47 Pulse Ox 97 04/12/18 08:55 - Physical Examination General: Appears Well, No Apparent Distress HEENT: Positive: PERRL Cardiac: Positive: irregularly irregular, S1/S2 Lungs: Positive: Decreased Breath Sounds Neuro: Positive: Grossly Intact Abdomen: Positive: Soft Skin: Positive: Clear Extremities: Absent: edema - Labs and Meds CBC 04/12/18 Range/Units 04:46 WBC 11.4 H (4.5-11.0) K/mm3 RBC 4.50 (3.65-5.03) M/mm3 Hgb 13.8 (10.1-14.3) gm/dl Hct 41.4 (30.3-42.9) % Plt Count 118 L (140-440) K/mm3 Comprehensive Metabolic Panel 04/12/18 Range/Units 04:46 Sodium 140 (137-145) mmol/L Potassium 4.8 (3.6-5.0) mmol/L Chloride 100.4 (98-107) mmol/L Carbon Dioxide 23 (22-30) mmol/L BUN 49 H (7-17) mg/dL Creatinine 1.3 H (0.7-1.2) mg/dL Glucose 113 H (65-100) mg/dL Calcium 8.9 (8.4-10.2) mg/dL - Imaging and Cardiology Echo: report reviewed (01/2018: LVH, EF 20-25%, mild-moderate MR, mild-moderate TR.) Cardiac cath: report reviewed (07/18/2017 showed minimal coronary irregularities , mildly dilated LV with diffuse hypokinesis, EF 40-45%. ) - Telemetry EKG Rhythm: Atrial Fibrillation
--- NOTE | 2018-04-12 13:43 | Discharge Summary ---
Providers - Providers Date of Admission: 04/09/18 17:33 Date of discharge: 04/12/18 Attending physician: AMANDO ARNDT 04/09/18 21:45 Consult to Physician [CONS] Routine Comment: Consulting Provider: VICKIE RODARTE Physician Instructions: Reason For Exam: COPD exacerbation Primary care physician: [employer] Hospitalization Reason for admission: worsening shortness of breath/acute on chronic respiratory failure Condition: Stable Pertinent studies: CT head; no acute abnormality CXR: Prominant cardiac silhouette Hospital course: 72-year-old female patient with significant history of A. fib COPD congestive heart failure was admitted through emergency room with worsening shortness of breath nausea vomiting, Evaluated by cardiology medications were optimized, patient was also seen by pulmonary for acute exacerbation of COPD --Acute on chronic respiratory failure with hypoxia; significant improvement not a candidate for home oxygen, room air O2 sat 95% --Acute exacerbation of COPD; improved on nebulizers and steroids antibiotics --Acute on chronic systolic congestive heart failure; EF 40-45% Received anti-failure medications, stable --A. fib with rapid ventricular rate; rate controlled --Chronic anticoagulation with Eliquis --Dyslipidemia; stable on statin --Ongoing tobacco use; counseling, nicotine patch as needed Hemodynamically and clinically stable for discharge Disposition: DC-01 TO HOME OR SELFCARE Time spent for discharge: 32min Core Measure Documentation - Palliative Care Palliative Care/ Comfort Measures: Not Applicable - Core Measures Any of the following diagnoses?: none Exam - Constitutional Vitals: Temp Pulse Resp BP Pulse Ox 97.9 F 83 18 121/74 97 04/12/18 11:29 04/12/18 11:29 04/12/18 11:29 04/12/18 11:29 04/12/18 11:29 General appearance: Present: no acute distress, well-nourished - EENT Eyes: Present: PERRL, EOM intact - Neck Neck: Present: supple, normal ROM - Respiratory Respiratory effort: normal Respiratory: negative: rales, rhonchi, wheezing - Cardiovascular Rhythm: regular Heart Sounds: Present: S1 & S2 - Extremities Extremities: no ischemia, No edema - Abdominal General gastrointestinal: Present: soft, non-tender, non-distended, normal bowel sounds - Integumentary Integumentary: Present: clear, warm - Musculoskeletal Musculoskeletal: strength equal bilaterally - Psychiatric Psychiatric: appropriate mood/affect, cooperative - Neurologic Neurologic: CNII-XII intact, moves all extremities Plan Activity: no restrictions, fall precautions Diet: other (cardiac diet) Follow up with: PRIMARY CARE, [Primary Care Provider] - 3-5 Days VICKIE RODARTE MD [Staff Physician] - 7 Days Prescriptions: levoFLOXacin [Levaquin TAB] 750 mg PO Q48H #4 tablet Nicotine [Habitrol] 21 mg TD QDAY #30 patch Prednisone [predniSONE 10 mg (6-Day Pack, 21 Tabs)] 10 mg PO .TAPER #1 tab.ds.pk
--- NOTE | 2018-04-12 15:00 | Progress Note ---
Assessment and Plan -Acute on chronic respiratory failure with hypoxia -AE-COPD -Acute on chronic systolic congestive heart failure; EF 40-45% -A. fib with rapid ventricular rate -Chronic anticoagulation with Eliquis -Dyslipidemia -Protein calorie malnutrition Continue supplemental oxygen, wean for O2 sats>88% -Bronchodilators -Convert IV steroids to oral -VTE prophylaxis -Complete 5 day course of antibiotics for AE-COPD -Smoking cessation counselling done at the bedside -Nicotine withdrawal precautions -Outpatient pulmonary follow up on discharge-needs PFTs to further characterize chronic lung disease -LABA/LAMA on discharge CODE STATUS:FULL CODE Subjective Date of service: 04/12/18 Principal diagnosis: COPD exacerbation Interval history: Patient is seen today for: acute hypoxic respiratroy failure, AE-COPD, tobacco abuse disorder, protein calorie malnutrition Seen and examined at bedside; 24hour events reviewed; nursing and respiratory care staff consulted; no adverse overnight events reported to me Shortness of breath improved, no chest pain. No hemoptysis, no nausea or vomiting, no diarrhea Objective - Exam Narrative Exam: General appearance: Present: no acute distress, chronically ill looking - EENT Eyes: Present: PERRL, EOM intact - Neck Neck: Present: supple, normal ROM - Respiratory Respiratory effort: normal Respiratory: bilateral: diminished, long expiratory phase - Cardiovascular Rhythm: regular Heart Sounds: Present: S1 & S2, no murmurs, no gallops - Extremities Extremities: no ischemia, No edema - Abdominal General gastrointestinal: soft, non-tender, non-distended, normal bowel sounds No hepatosplenomegaly - Integumentary Integumentary: Present: clear, warm - Psychiatric Psychiatric: appropriate mood/affect, cooperative - Neurologic Neurologic: CNII-XII intact, moves all extremities Vital Signs - 12hr 04/12/18 04/12/18 04/12/18 05:55 07:31 08:55 Temperature 98.6 F 97.9 F Pulse Rate 86 58 L Pulse Rate [ 82 Bilateral] Respiratory 20 18 Rate Respiratory 18 Rate [Bilateral ] Blood Pressure 118/73 102/70 O2 Sat by Pulse 96 98 97 Oximetry 04/12/18 04/12/18 04/12/18 09:07 10:45 10:47 Temperature Pulse Rate 88 88 Pulse Rate [ 71 Bilateral] Respiratory Rate Respiratory 18 Rate [Bilateral ] Blood Pressure 102/70 102/70 O2 Sat by Pulse Oximetry 04/12/18 11:29 Temperature 97.9 F Pulse Rate 83 Pulse Rate [ Bilateral] Respiratory 18 Rate Respiratory Rate [Bilateral ] Blood Pressure 121/74 O2 Sat by Pulse 97 Oximetry CBC and BMP: 04/12/18 04:46 04/12/18 04:46 ABG, PT/INR, D-dimer: PT/INR, D-dimer PT 17.3 Sec. (12.2-14.9) H 04/09/18 15:44 INR 1.36 (0.87-1.13) H 04/09/18 15:44 Abnormal lab findings: Abnormal Labs 04/09/18 04/09/18 04/09/18 15:44 15:44 15:44 WBC Hgb 14.5 H Hct RDW Plt Count 109 L Lymph % (Auto) Lymph # Seg Neutrophils % Seg Neuts % (Manual) 85.0 H Lymphocytes % (Manual) 11.0 L Seg Neutrophils # Seg Neutrophils # Man Lymphocytes # (Manual) 0.9 L PT 17.3 H INR 1.36 H Carbon Dioxide 21 L BUN 21 H Creatinine Glucose 122 H Direct Bilirubin 0.3 H NT-Pro-B Natriuret Pep 59734 H 04/10/18 04/10/18 04/11/18 05:13 05:13 04:55 WBC 12.2 H Hgb Hct 43.2 H RDW Plt Count 98 L 95 L Lymph % (Auto) 10.3 L 5.3 L Lymph # 0.6 L 0.6 L Seg Neutrophils % 86.1 H 88.4 H Seg Neuts % (Manual) Lymphocytes % (Manual) Seg Neutrophils # 10.8 H Seg Neutrophils # Man Lymphocytes # (Manual) PT INR Carbon Dioxide BUN 22 H Creatinine Glucose 153 H Direct Bilirubin NT-Pro-B Natriuret Pep 04/11/18 04/12/18 04/12/18 04:55 04:46 04:46 WBC 11.4 H Hgb Hct RDW 15.3 H Plt Count 118 L Lymph % (Auto) Lymph # Seg Neutrophils % Seg Neuts % (Manual) 95.0 H Lymphocytes % (Manual) 4.0 L Seg Neutrophils # Seg Neutrophils # Man 10.8 H Lymphocytes # (Manual) 0.5 L PT INR Carbon Dioxide BUN 46 H 49 H Creatinine 1.4 H 1.3 H Glucose 117 H 113 H Direct Bilirubin NT-Pro-B Natriuret Pep
[2018-04-12] MEDS: PEPCID PO SCH (16:32)
[2018-04-12] MEDS: LANOXIN PO SCH (16:38)
[2018-04-12 16:44] VITALS: BP 109/79
[2018-04-13] MEDS ORDERED: LEVAQUIN PO SCH (22:00)
== END 2018-04-12 17:56 | disposition home or self-care (01) | DRG 291 ==
LOC: ED 15:16 → 4A 17:33
PROVIDERS: ADMIT Internal Medicine; ATTEND Internal Medicine
DX: I11.0 Hypertensive heart disease with heart failure (principal); J96.21 Acute and chronic respiratory failure with hypoxia; J44.1 Chronic obstructive pulmonary disease with (acute) exacerbation; E46 Unspecified protein-calorie malnutrition; Z68.1 Body mass index [BMI] 19.9 or less, adult; E78.2 Mixed hyperlipidemia; K21.9 Gastro-esophageal reflux disease without esophagitis; F32.9 Major depressive disorder, single episode, unspecified; D69.6 Thrombocytopenia, unspecified; I25.10 Atherosclerotic heart disease of native coronary artery without angina pectoris; I48.2 Chronic atrial fibrillation; R62.7 Adult failure to thrive; G44.209 Tension-type headache, unspecified, not intractable; I44.7 Left bundle-branch block, unspecified; I50.23 Acute on chronic systolic (congestive) heart failure; I42.0 Dilated cardiomyopathy; F17.210 Nicotine dependence, cigarettes, uncomplicated; Z71.6 Tobacco abuse counseling; I25.2 Old myocardial infarction; Z87.01 Personal history of pneumonia (recurrent); Z79.01 Long term (current) use of anticoagulants; Z79.51 Long term (current) use of inhaled steroids; Z79.899 Other long term (current) drug therapy; Z86.73 Personal history of transient ischemic attack (TIA), and cerebral infarction without residual deficits
CPT/HCPCS: 36415; 70450; 71045; 80048; 80053; 80074; 81001; 83036; 83735; 83880; 85007; 85025; 85610; 85730; 94640; 94760; 99406; A9270-GY; J0282; J1940; J1956; J2405; J2930; J7060

== ENCOUNTER 2018-10-19 14:09 | Inpatient (IN) | payer MEDICARE ==
--- NOTE | 2018-10-19 14:35 | Emergency Department Report ---
Chief Complaint: Dyspnea/Respdistress Stated Complaint: LOW BP/WEAKNESS Time Seen by Provider: 10/19/18 14:30 - HPI History of Present Illness: pt c/o generalized weakness no appetite chronic cough no dizziness, no CP, no VAZQUEZ Pt was at her PCP, BP 78/56 at her PCP sent to ED hx IA, Afib, EF 15-20%, COPD, smoker - Exam Vital Signs: Vital Signs 10/19/18 14:26 Temperature 97.7 F Pulse Rate 90 Respiratory 20 Rate Blood Pressure 86/50 [Left] O2 Sat by Pulse 97 Oximetry MSE screening note: Focused history and physical exam performed. Due to findings the following was ordered: labs, UA, CXR ED Disposition for MSE Condition: Stable Referrals: JAMAL KELLER MD [Primary Care Provider] - 3-5 Days
[2018-10-19 15:38] LABS: INR 1.07 (0.87-1.13)
[2018-10-19] MEDS ORDERED: NACL 0.9% 500 ML 500 ML ONE (15:38)
[2018-10-19 15:39] LABS: Partial Thromboplastin Time 20.4 Sec. (24.2-36.6)
[2018-10-19 15:42] LABS: Basophils % (Auto) 0.3 % (0.0-1.8); Eosinophils % (Auto) 0.2 % (0.0-4.3); Hematocrit 44.9 % (30.3-42.9); Hemoglobin 15.3 gm/dl (10.1-14.3); Lymphocytes # (Auto) 1.6 K/mm3 (1.2-5.4); Lymphocytes % (Auto) 37.9 % (13.4-35.0); Mean Corpuscular HGB Conc 34 % (30-34); Mean Corpuscular Volume 90 fl (79-97); Monocytes # (Auto) 0.3 K/mm3 (0.0-0.8); Monocytes % (Auto) 8.1 % (0.0-7.3); Platelet Count 107 K/mm3 (140-440); Red Blood Count 4.99 M/mm3 (3.65-5.03); Red Cell Distribution Width 14.5 % (13.2-15.2)
[2018-10-19 15:47] LABS: Alanine Aminotransferase 14 units/L (7-56); Albumin 4.2 g/dL (3.9-5); BUN/Creatinine Ratio 35; Blood Urea Nitrogen 45 mg/dL (7-17); Hemolysis Index 22
[2018-10-19] MEDS ORDERED: NACL 0.9% 500 ML 500 ML IV ONE (15:47)
[2018-10-19] MEDS ORDERED: NACL 0.9% 1000 ML IV ONE (16:31)
--- NOTE | 2018-10-19 16:31 | Emergency Department Report ---
ED General Adult HPI - General Chief complaint: Dyspnea/Respdistress Stated complaint: LOW BP/WEAKNESS Time Seen by Provider: 10/19/18 14:30 Source: patient Mode of arrival: Wheelchair Limitations: No Limitations - History of Present Illness Initial comments: Mrs. Jacobo is a 72 yo female with hx of COPD, systolic CHF EF 20-30%, HTN, PR, CVA, tobacco abuse, atrial fibrillation who presents with hypotension, poor appetite, generalized weakness and diarrhea. She presents from Dr. Elaina Salgado office with hypotension via EMS. In PCP's office, BY /56. Patient stated that digoxin medication was stopped 3 months ago. She denies chest, head or abdominal pain. Has had chronic cough. Is not oxygen dependent. According to EMR, several hospitalizaions for shortness of breath. Patient lives with daughter and grandchildren. Smokes 4-5 cigarettes per day. Originally from [place]. -: Gradual, week(s) (3) Severity scale (0 -10): 5 Improves with: none Worsens with: none Associated Symptoms: cough, malaise, weakness, other (diarrhea) - Related Data Home Medications Medication Instructions Recorded Confirmed Last Taken Rosuvastatin Calcium [Crestor] 20 mg PO DAILY 10/20/18 10/20/18 Unknown Previous Rx's Medication Instructions Recorded Last Taken Type ALBUTEROL NEB's [Proventil 0.083% 2.5 mg IH Q4HRT PRN #60 nebu 10/09/17 Unknown Rx NEBS] Apixaban [Eliquis] 5 mg PO Q12HR #60 tablet 10/09/17 Unknown Rx Citalopram [Celexa] 20 mg PO QDAY #30 tablet 10/09/17 Unknown Rx Furosemide [Lasix TAB] 20 mg PO QDAY #10 tablet 10/09/17 Unknown Rx Ipratropium/Albuterol Sulfate 1 ampul IH Q6HR #60 ampul.neb 10/09/17 Unknown Rx [DUONEB *Not for PRN Use*] Nebulizer and Compressor [Portable 1 each MC QID #1 each 10/09/17 Unknown Rx Nebulizer System] Nicotine [Habitrol] 21 mg TD QDAY #30 patch 04/12/18 Unknown Rx Allergies Allergy/AdvReac Type Severity Reaction Status Date / Time No Known Allergies Allergy Verified 10/19/18 14:21 ED Review of Systems ROS: Stated complaint: LOW BP/WEAKNESS Other details as noted in HPI Comment: All other systems reviewed and negative Constitutional: malaise Cardiovascular: denies: chest pain Gastrointestinal: denies: abdominal pain ED Past Medical Hx - Past Medical History Previous Medical History?: Yes Hx Hypertension: Yes Hx Heart Attack/AMI: Yes Hx Congestive Heart Failure: Yes (card cath ef 40-45%, minimal coronary irregularities) Hx Diabetes: No Hx COPD: Yes Additional medical history: pneumonia. Atrial fibrillation. Dilated cardiomyopathy - Surgical History Past Surgical History?: Yes Hx Breast Surgery: Yes Additional Surgical History: breast surgery - Social History Smoking Status: Current Every Day Smoker Substance Use Type: None - Medications Home Medications: Home Medications Medication Instructions Recorded Confirmed Last Taken Type ALBUTEROL NEB's [Proventil 0.083% 2.5 mg IH Q4HRT PRN #60 nebu 10/09/17 10/20/18 Unknown Rx NEBS] Apixaban [Eliquis] 5 mg PO Q12HR #60 tablet 10/09/17 10/20/18 Unknown Rx Citalopram [Celexa] 20 mg PO QDAY #30 tablet 10/09/17 10/20/18 Unknown Rx Furosemide [Lasix TAB] 20 mg PO QDAY #10 tablet 10/09/17 10/20/18 Unknown Rx Ipratropium/Albuterol Sulfate 1 ampul IH Q6HR #60 ampul.neb 10/09/17 10/20/18 Unknown Rx [DUONEB *Not for PRN Use*] Nebulizer and Compressor [Portable 1 each QID #1 each 10/09/17 10/20/18 Unknown Rx Nebulizer System] Nicotine [Habitrol] 21 mg TD QDAY #30 patch 04/12/18 10/20/18 Unknown Rx Rosuvastatin Calcium [Crestor] 20 mg PO DAILY 10/20/18 10/20/18 Unknown History ED Physical Exam - General Limitations: No Limitations General appearance: alert, in no apparent distress, other (frail, elderly, alert, answers questions) - Head Head exam: Present: atraumatic, normocephalic - Eye Eye exam: Present: normal appearance - ENT ENT exam: Present: mucous membranes dry - Neck Neck exam: Present: normal inspection, full ROM - Respiratory Respiratory exam: Present: wheezes, rales. Absent: respiratory distress, rhonchi, chest wall tenderness, accessory muscle use - Cardiovascular Cardiovascular Exam: Present: regular rate, normal rhythm, irregular rhythm, normal heart sounds. Absent: systolic murmur, diastolic murmur, rubs, gallop - GI/Abdominal GI/Abdominal exam: Present: soft, normal bowel sounds. Absent: distended, tenderness, guarding, rebound - Extremities Exam Extremities exam: Present: normal inspection - Back Exam Back exam: Present: normal inspection - Neurological Exam Neurological exam: Present: alert, oriented X3 - Psychiatric Psychiatric exam: Present: normal affect, normal mood - Skin Skin exam: Present: warm, dry, intact, normal color. Absent: rash ED Course Vital Signs 10/19/18 10/19/18 10/19/18 14:26 15:31 15:45 Temperature 97.7 F Pulse Rate 90 91 H 81 Respiratory 20 22 21 Rate Blood Pressure 84/57 Blood Pressure 86/50 [Left] O2 Sat by Pulse 97 Oximetry 10/19/18 10/19/18 10/19/18 16:00 16:15 17:00 Temperature Pulse Rate 87 80 80 Respiratory 21 18 18 Rate Blood Pressure 87/63 82/63 98/57 Blood Pressure [Left] O2 Sat by Pulse 98 92 91 Oximetry 10/19/18 10/19/18 10/19/18 17:30 17:45 18:00 Temperature Pulse Rate 72 98 H 81 Respiratory 14 21 18 Rate Blood Pressure 76/58 97/60 119/66 Blood Pressure [Left] O2 Sat by Pulse 99 Oximetry 10/19/18 10/19/18 10/19/18 18:15 18:30 18:45 Temperature Pulse Rate 76 81 81 Respiratory 20 18 25 H Rate Blood Pressure 118/58 122/59 118/58 Blood Pressure [Left] O2 Sat by Pulse 94 Oximetry 10/19/18 10/19/18 10/19/18 19:17 19:41 19:45 Temperature Pulse Rate Respiratory Rate Blood Pressure 87/65 76/33 76/33 Blood Pressure [Left] O2 Sat by Pulse 84 96 96 Oximetry 10/19/18 10/19/18 10/19/18 20:00 20:15 20:31 Temperature Pulse Rate Respiratory Rate Blood Pressure 85/63 85/63 85/63 Blood Pressure [Left] O2 Sat by Pulse 95 98 94 Oximetry 10/19/18 10/19/18 10/19/18 20:45 21:00 21:15 Temperature Pulse Rate Respiratory Rate Blood Pressure 85/63 97/61 97/61 Blood Pressure [Left] O2 Sat by Pulse 96 96 96 Oximetry 10/19/18 10/19/18 10/19/18 21:31 21:45 22:00 Temperature Pulse Rate Respiratory Rate Blood Pressure 97/61 97/61 101/72 Blood Pressure [Left] O2 Sat by Pulse 96 96 97 Oximetry 10/19/18 10/19/18 10/19/18 22:15 22:31 22:45 Temperature Pulse Rate Respiratory Rate Blood Pressure 101/72 101/72 101/72 Blood Pressure [Left] O2 Sat by Pulse 96 97 95 Oximetry 10/19/18 10/19/18 10/19/18 23:00 23:15 23:21 Temperature Pulse Rate Respiratory Rate Blood Pressure 93/68 93/68 93/68 Blood Pressure [Left] O2 Sat by Pulse 97 97 97 Oximetry 10/19/18 23:30 Temperature Pulse Rate Respiratory Rate Blood Pressure 93/68 Blood Pressure [Left] O2 Sat by Pulse 94 Oximetry ED Medical Decision Making - Lab Data Result diagrams: 10/19/18 15:07 10/21/18 15:07 Laboratory Tests 10/19/18 10/19/18 10/19/18 15:02 15:02 15:02 WBC RBC Hgb Hct MCV MCH MCHC RDW Plt Count Lymph % (Auto) Sac % (Auto) Eos % (Auto) Baso % (Auto) Lymph # Sac # Eos # Baso # Seg Neutrophils % Seg Neutrophils # PT 14.6 INR 1.07 APTT 20.4 L Sodium 137 Potassium 3.9 Chloride 104.8 Carbon Dioxide 18 L Anion Gap 18 BUN 45 H Creatinine 1.3 H Estimated GFR 40 BUN/Creatinine Ratio 35 Glucose 85 Calcium 9.0 Phosphorus 4.30 Magnesium 2.10 Total Bilirubin 0.40 AST 22 ALT 14 Alkaline Phosphatase 63 Troponin T < 0.010 Total Protein 7.3 Albumin 4.2 Albumin/Globulin Ratio 1.4 10/19/18 15:07 WBC 4.2 L RBC 4.99 Hgb 15.3 H Hct 44.9 H MCV 90 MCH 31 MCHC 34 RDW 14.5 Plt Count 107 L Lymph % (Auto) 37.9 H Sac % (Auto) 8.1 H Eos % (Auto) 0.2 Baso % (Auto) 0.3 Lymph # 1.6 Sac # 0.3 Eos # 0.0 Baso # 0.0 Seg Neutrophils % 53.5 Seg Neutrophils # 2.3 PT INR APTT Sodium Potassium Chloride Carbon Dioxide Anion Gap BUN Creatinine Estimated GFR BUN/Creatinine Ratio Glucose Calcium Phosphorus Magnesium Total Bilirubin AST ALT Alkaline Phosphatase Troponin T Total Protein Albumin Albumin/Globulin Ratio - EKG Data 10/19/18 17:42 EKG 1731 atrial fibrillation ventricular reat 75 bpm normal axis no significant ST elevation +LBBB nonspecific T wave pattern - Radiology Data Radiology results: report reviewed, image reviewed interpreted by me: CXR PA/lateral: hyperinflated lungs, no infiltrate, no pulmonary edema - Medical Decision Making Mrs. Jacobo presents with generalized weakness, diarrhea, poor appetite for 3 weeks. Persistent hypotension attributed to hypovolemia, dehydration with antihypertensive use. Will need continued hydration. Did receive antibiotics and full sepsis protocol. However with normal white blood cell count and normal lactic acid level, I do not suspect bacteremia. CT chest abdomen pelvis did not reveal signs of infectious or inflammatory process. Critical Care Time: Yes Critical care attestation.: If time is entered above; I have spent that time in minutes in the direct care of this critically ill patient, excluding procedure time. 40 minutes of critical care time excluding procedures were used in the care of the patient. Patient required multiple assessments and interventions. I reviewed the electronic medical record. I spoke with consultants involved in the care of the patient. I was concerned for septic shock. Also concern for hypovolemia. ED Disposition Clinical Impression: Acute on chronic systolic CHF (congestive heart failure), COPD exacerbation Disposition: OP ADMIT IP TO THIS HOSP Is pt being admited?: Yes Does the pt Need Aspirin: No Condition: Stable
[2018-10-19] MEDS ORDERED: ZITHROMAX 500 MG in NACL 0.9% 250ML 250 ML IV SCH (17:00)
[2018-10-19] MEDS: ROCEPHIN/NS 2 GM/100 ML 2 GM/100 ML BAG IV SCH (17:46)
[2018-10-19] MEDS ORDERED: NACL 0.9% 1000 ML 1,000 ML IV ONE (19:59)
--- NOTE | 2018-10-19 20:14 | XRay Report ---
PROCEDURE: XR CHEST ROUTINE 2V HISTORY: hx copd, cough FINDINGS: Frontal and lateral views the chest were acquired and compared to the prior examination of April 09, 2018. There is cardiomegaly. There is no evidence of congestive heart failure. The lungs are hyperinflated, similar to the prior exam, but appear clear. IMPRESSION: Cardiomegaly Stable COPD This document is electronically signed by Usman Reardon MD., October 19 2018 08:12:32 PM ET
--- NOTE | 2018-10-19 21:15 | Cat Scan Report ---
PROCEDURE: CT ABDOMEN PELVIS W CON TECHNIQUE: Computerized axial tomography of the abdomen and pelvis was performed after the IV inject ion of iodinated nonionic contrast. CT DOSE LENGTH PRODUCT: mGycm HISTORY: diarrhea COMPARISONS: None . FINDINGS: Moderate degree cardiomegaly is noted. Liver and spleen, pancreas and right adrenal glands are within normal limits. Left adrenal demonstrates isoenhancing nodules involving the medial and lateral limbs measuring 0.6 and 0.9 cm respectively. Bilateral kidneys demonstrate cortical thinning without hydro nephrosis. Left kidney is contracted measuring 7.3 cm x 3.5 cm. Right kidney measures 9 x 3.7 cm. Uri nary bladder is well-distended with normal outlines. Aorta is of normal caliber. There is no free flu id or free air. Gallbladder is unremarkable. Small bowel loops are within normal limits. Appendix is normal. Multiple fluid-filled nondistended loops of small bowel and colon are identified. A hypoenhan cing mass lesion is noted involving the uterus measuring 5.5 x 4.3 cm. Mild degree spondylolisthesis is noted at L5-S1. Vertebral height is normal. IMPRESSION: Multiple fluid filled nondistended loops of small and large bowel are consistent with ent erocolitis. A mass lesion is noted in the uterus measuring 5.5 x 4.3 cm with irregular outlines. This most likely represents a fibroid. Ultrasound evaluation is recommended to differentiate it from other etiologies . Moderate degree cardiomegaly Left adrenal nodules. These can be further evaluated using pre and postcontrast MRI. Small left kidney most likely representing atrophy secondary to renal arterial stenosis. This document is electronically signed by Adrian Reddy MD., October 19 2018 09:13:30 PM ET
--- NOTE | 2018-10-19 21:46 | Cat Scan Report ---
PROCEDURE: CT CHEST W CON TECHNIQUE: Computerized axial tomography of the chest was performed during the IV injection of iodin ated nonionic contrast. CT DOSE LENGTH PRODUCT: mGycm HISTORY: diarrhea COMPARISONS: None . FINDINGS: A cluster Nodular infiltrates are noted in the medial aspect of left upper lobe. Additional 3 to 4 mm subpleura l nodules are noted in the right upper and middle lobes. Bilateral pleural spaces are clear. There ar e no hilar mass lesions. No lymphadenopathy is noted. Thyroid is unremarkable. Aorta is of normal sanford iber without evidence of dissection or aneurysm formation. High-grade stenosis versus occlusion is no gordy involving the origin of left subclavian artery. There is moderate cardiomegaly. Mild degree wedge compression deformity is noted involving T6 vertebral body. IMPRESSION: Nodular infiltrates left upper lobe suspicious for early pneumonia. Nonspecific subpleural nodules of 3 to 4 mm size in the right upper and middle lobes. A 3-6 month fol low-up study is recommended. Mild degree wedge compression deformity of T6 vertebral body. The age of this fracture is not known. 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
[2018-10-19] MEDS ORDERED: ZOFRAN IV PRN (21:50)
[2018-10-19] MEDS ORDERED: TYLENOL PO PRN (21:52)
[2018-10-19] MEDS ORDERED: NACL 0.9% 1000 ML 1,000 ML ONE (23:27)
[2018-10-19] MEDS ORDERED: FLAGYL 500 MG/100 ML 500 MG/100 ML BAG IV ONE (23:27)
[2018-10-19] MEDS: FLAGYL 500 MG/100 ML 500 MG/100 ML BAG IV SCH (23:45)
[2018-10-20] MEDS: NACL 0.9% 1000 ML 1,000 ML IV SCH ×2 (00:18→22:38)
[2018-10-20] MEDS: HEPARIN SUB-Q SCH ×2 (00:19→11:34)
[2018-10-20] MEDS: FLAGYL 500 MG/100 ML 500 MG/100 ML BAG IV SCH ×3 (05:09→22:12)
[2018-10-20] MEDS ORDERED: K-DUR PO ONE (05:17)
[2018-10-20] MEDS ORDERED: KCL 10MEQ/100ML 10 MEQ/100 ML BAG IV SCH (06:00)
[2018-10-20] MEDS: LANOXIN IV SCH ×3 (06:45→18:02)
--- NOTE | 2018-10-20 08:07 | History and Physical Report ---
CHIEF COMPLAINT: Generalized weakness. Other complaint includes low blood pressure. HISTORY OF PRESENT ILLNESS: The patient is a 72-year-old female, who was brought in because of generalized weakness and also diarrhea. The patient also complained of poor appetite and was found to have low blood pressure. There was no history of chest pain, no history of fever or chills. No history of nausea or vomiting. Also, the patient denies history of cough but has shortness of breath. PAST MEDICAL HISTORY: Pertinent for hypertension, coronary artery disease, status post myocardial infarction, congestive heart failure with ejection fraction of 40%-45%. The patient also has past medical history of COPD, pneumonia, atrial fibrillation, and dilated cardiomyopathy. PAST SURGICAL HISTORY: Pertinent for breast surgery. FAMILY HISTORY: Noncontributory. SOCIAL HISTORY: The patient is everyday cigarette smoker, does not drink alcohol, and does not use illicit drugs. MEDICATIONS: The patient's home medications include albuterol nebulizer 2.5 mg every 4 hours as needed for shortness of breath, apixaban 5 mg by mouth every 12 hours, citalopram 20 mg by mouth daily, furosemide 20 mg by mouth daily, lovastatin 20 mg by mouth every evening, digoxin 0.25 mg by mouth daily, Cozaar or losartan 20 mg by mouth daily, metoprolol succinate extended release 50 mg by mouth daily, nicotine patch 21 mg transdermally daily. The patient is also on Levaquin, which was already finished and prednisone Dosepak, which is already finished. ALLERGIES: There are no known drug allergies. REVIEW OF SYSTEMS: CONSTITUTIONAL: There is no fever, no chills, no diaphoresis. HEENT: There is no headache or sore throat. CARDIOVASCULAR SYSTEM: There is no chest pain or orthopnea. RESPIRATORY SYSTEM: There is shortness of breath but no cough. GASTROINTESTINAL SYSTEM: There is no nausea, no vomiting, no abdominal pain but the patient has diarrhea and poor appetite. NEUROLOGICAL SYSTEM: There is generalized weakness but no numbness and no altered mental status. MUSCULOSKELETAL SYSTEM: There is no joint pain or swelling. DERMATOLOGICAL SYSTEM: There is no skin rash or itching. GENITOURINARY SYSTEM: There is no dysuria, hematuria or flank pain. Rest of the system review is normal. PHYSICAL EXAMINATION: GENERAL: At the time of exam, the patient was found to alert, oriented x 3, weak looking but not in acute distress. VITAL SIGNS: At the initial time of presentation show temperature of 97.7 degrees Fahrenheit, pulse of 90, respirations 20, blood pressure 86/50, and O2 sat of 97% on room air. HEENT: Showed pupils to be equal, round, and reactive to light and accommodating. Extraocular muscles are intact. NECK: Supple with no JVD or carotid bruit. CARDIOVASCULAR SYSTEM: Showed normal first and second heart sounds with no gallops or murmurs. RESPIRATORY SYSTEM: Showed good air entry on both sides of the lung with no abnormal breath sounds. GASTROINTESTINAL SYSTEM: Showed abdomen to be full, soft, nontender with no organomegaly or rigidity. NEUROLOGICAL SYSTEM: Showed no focal deficits. MUSCULOSKELETAL SYSTEM: Showed no joint swelling or tenderness. DERMATOLOGICAL SYSTEM: Showed no skin rash. GENITOURINARY SYSTEM: Showing no costovertebral angle tenderness. PERTINENT LABORATORY AND IMAGING STUDIES: The patient had chest was done and chest x-ray shows cardiomegaly with stable COPD findings. The patient had a CT of the abdomen and pelvis done that shows multiple fluid filled, nondistended loops of small and large bowel, which the radiologist say is consistent with enterocolitis. There is finding of mass lesion in the uterus measuring about 5.5 x 4.3 with irregular outline, which Radiology says most likely represents a fibroid and said that the ultrasound evaluation is recommended to differentiate if some other etiology. There is finding of moderate degree of cardiomegaly and also finding of left adrenal nodules. The radiologist said that further evaluation using pre and post contrast MRI will probably be needed for diagnosis. There is finding of a small left kidney, most likely representing atrophy secondary to renal artery stenosis. LABORATORY RESULTS: The patient has CBC done with low white count of 4.2, elevated hemoglobin of 15.3 and elevated hematocrit of 44.9 with normal MCV. Coagulation studies were unremarkable. Chemistry shows low CO2 of 18, high BUN of 45 with slightly elevated creatinine of 1.3. The patient's brain natriuretic peptide level is high with a value of 2552, and the patient's digoxin level is low with a value of 0.3. DIAGNOSES: 1. Enterocolitis. 2. Hypotension. 3. Dehydration. PLAN OF CARE: 1. The patient will be admitted to telemetry. 2. The patient will be on IV ceftriaxone 1 gram daily for treatment of enterocolitis and also IV Flagyl 500 mg every 8 hours. 3. The patient will be on IV normal saline running at 75 mL an hour since the blood pressure has normalized. 4. The patient will be on p.r.n. medications like Tylenol 650 mg by mouth every 4 hours for fever and headache and IV Zofran 4 mg every 8 hours for nausea and vomiting. 5. The patient will be on heparin 5000 units subcutaneously q.12 hours for DVT prophylaxis and will have potassium replacement by mouth at the dose of 40 mEq x 1 dose and also the patient will have IV potassium chloride , 20 mEq in 200 mL of normal saline given over 2 hours. 6. The patient's home medications will be started after reconciliation. JOB# [id number] [facility]NANNETTE PE[facility]
[2018-10-20] MEDS: ROCEPHIN/NS 2 GM/100 ML 2 GM/100 ML BAG IV SCH (11:34)
--- NOTE | 2018-10-20 18:16 | Progress Note ---
Assessment and Plan Assessment and plan: Diarrhea secondary to enterocolitis - Patient is on IV antibiotics -CT showed enterocolitis Hypotension - Due to the above - Hold antihypertensives - IV fluids Generalized weakness - We'll get better with IV resuscitation Malnutrition - Nutrition consult A. fib - Recommend controlled, will continue eliquis Depression - Continue sertraline COPD - Stable - Continue on albuterol Disposition - Continue inpatient care History Interval history: Patient was seen and evaluated this morning, patient is complaining generalized weakness, had an episode of diarrhea this morning. Hospitalist Physical - Physical exam Narrative exam: Not in cardiopulmonary distress. The patient is emaciated. Vital signs as documented. Head exam is unremarkable. No scleral icterus . Neck is without jugular venous distension, thyromegaly, or carotid bruits. Lungs are clear to auscultation. Cardiac exam reveals regular rate and Rhythm. Abdominal exam reveals normal bowel sounds. Extremities are nonedematous and both femoral and pedal pulses are normal. 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 No focal weakness. - Constitutional Vitals: Temp Pulse Resp BP Pulse Ox 97.9 F 74 18 91/62 97 10/20/18 15:53 10/20/18 15:53 10/20/18 15:53 10/20/18 15:53 10/20/18 15:53 Results - Labs CBC & Chem 7: 10/19/18 15:07 10/19/18 15:02 Labs: Laboratory Last Values WBC 4.2 K/mm3 (4.5-11.0) L 10/19/18 15:07 RBC 4.99 M/mm3 (3.65-5.03) 10/19/18 15:07 Hgb 15.3 gm/dl (10.1-14.3) H 10/19/18 15:07 Hct 44.9 % (30.3-42.9) H 10/19/18 15:07 MCV 90 fl (79-97) 10/19/18 15:07 MCH 31 pg (28-32) 10/19/18 15:07 MCHC 34 % (30-34) 10/19/18 15:07 RDW 14.5 % (13.2-15.2) 10/19/18 15:07 Plt Count 107 K/mm3 (140-440) L 10/19/18 15:07 Lymph % (Auto) 37.9 % (13.4-35.0) H 10/19/18 15:07 [place] % (Auto) 8.1 % (0.0-7.3) H 10/19/18 15:07 Eos % (Auto) 0.2 % (0.0-4.3) 10/19/18 15:07 Baso % (Auto) 0.3 % (0.0-1.8) 10/19/18 15:07 Lymph # 1.6 K/mm3 (1.2-5.4) 10/19/18 15:07 [place] # 0.3 K/mm3 (0.0-0.8) 10/19/18 15:07 Eos # 0.0 K/mm3 (0.0-0.4) 10/19/18 15:07 Baso # 0.0 K/mm3 (0.0-0.1) 10/19/18 15:07 Seg Neutrophils % 53.5 % (40.0-70.0) 10/19/18 15:07 Seg Neutrophils # 2.3 K/mm3 (1.8-7.7) 10/19/18 15:07 PT 14.6 Sec. (12.2-14.9) 10/19/18 15:02 INR 1.07 (0.87-1.13) 10/19/18 15:02 APTT 20.4 Sec. (24.2-36.6) L 10/19/18 15:02 Sodium 137 mmol/L (137-145) 10/19/18 15:02 Potassium 3.9 mmol/L (3.6-5.0) 10/19/18 15:02 Chloride 104.8 mmol/L (98-107) 10/19/18 15:02 Carbon Dioxide 18 mmol/L (22-30) L 10/19/18 15:02 Anion Gap 18 mmol/L 10/19/18 15:02 BUN 45 mg/dL (7-17) H 10/19/18 15:02 Creatinine 1.3 mg/dL (0.7-1.2) H 10/19/18 15:02 Estimated GFR 40 ml/min 10/19/18 15:02 BUN/Creatinine Ratio 35 % 10/19/18 15:02 Glucose 85 mg/dL (65-100) 10/19/18 15:02 Lactic Acid 0.70 mmol/L (0.7-2.0) 10/19/18 16:49 Calcium 9.0 mg/dL (8.4-10.2) 10/19/18 15:02 Phosphorus 4.30 mg/dL (2.5-4.5) 10/19/18 15:02 Magnesium 2.10 mg/dL (1.7-2.3) 10/19/18 15:02 Total Bilirubin 0.40 mg/dL (0.1-1.2) 10/19/18 15:02 AST 22 units/L (5-40) 10/19/18 15:02 ALT 14 units/L (7-56) 10/19/18 15:02 Alkaline Phosphatase 63 units/L (35-129) 10/19/18 15:02 Troponin T < 0.010 ng/mL (0.00-0.029) 10/19/18 15:02 NT-Pro-B Natriuret Pep 2552 pg/mL (0-900) H 10/19/18 20:15 Total Protein 7.3 g/dL (6.3-8.2) 10/19/18 15:02 Albumin 4.2 g/dL (3.9-5) 10/19/18 15:02 Albumin/Globulin Ratio 1.4 % 10/19/18 15:02 Digoxin 0.3 ng/mL (0.9-2.0) L 10/19/18 20:15 Nutrition/Malnutrition Assess - Dietary Evaluation Nutrition/Malnutrition Findings: Nutrition Notes Start: 10/20/18 11:03 Freq: Status: Active Protocol: Document 10/20/18 11:03 TW (Rec: 10/20/18 11:13 TW [email or web address]) Co-Sign 10/20/18 11:03 LP Nutrition Notes Need for Assessment generated from: official court interpreter Initial or Follow up Assessment Current Diagnosis COPD,Hypertension,Heart Failure,Hyperlipidemia Other Pertinent Diagnosis GERD, depression, DVT, pneumonia Current Diet Low Sodium Diet Labs/Tests BUN: 45 Cr: 1.3 Pertinent Medications Reviewed. Height 5 ft 3 in Weight 45.8 kg [place] Body Weight (kg) 52.27 BMI 17.9 Intake Prior to Admission Poor Weight Status Underweight Subjective/Other Information RN screen for MST score. 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 Pt denied wt loss, N/V/D and chewing/ swallowing difficulty. Pt would like to try a supplement . Burn Absent Trauma Absent #1 Nutrition Diagnosis Inadequate oral intake Etiology Depression As Evidenced by Signs and Symptoms Eating less than half of meals and meeting less than 75% of kcal and protein needs Is patient on ventilator? No Is Patient Ambulatory and/or Out of Bed Yes REE-([facility]-ambulatory/OOB) [ 1218.269 NUTR.MSJOOB] Kcal/Kg value to use for calculation 32 Approximate Energy Requirements Using 1466 kcal/Kg Calculation Used for Recommendations Kcal/kg Additional Notes Protein needs: (1.0- 1.2 g/kg) (46-55 g/day) Fluid needs: 1ml/kcal Nutrition Intervention Change Diet Order: Continue current Add Supplement/Snack (indicate name/kcal Ensure Enlive daily /protein ) Provides kCal: 350 Provides Protein (gm) 20 Goal #1 Meet at least 75% of kcal and protein needs by PO and ONS intakes Goal #2 ONS tolerance Anticipated Discharge Needs: Low Sodium Diet Follow-Up By: 10/24/18 Additional Comments F/U for PO and ONS intakes
[2018-10-20] MEDS ORDERED: PROVENTIL IH PRN (19:19)
[2018-10-20] MEDS: celeXA PO SCH (22:11)
[2018-10-20] MEDS: ELIQUIS PO SCH (22:12)
[2018-10-21] MEDS: LANOXIN IV SCH (01:01)
[2018-10-21] MEDS: FLAGYL 500 MG/100 ML 500 MG/100 ML BAG IV SCH ×3 (05:47→22:25)
[2018-10-21] MEDS: celeXA PO SCH (11:15)
[2018-10-21] MEDS: HABITROL TD SCH (11:15)
[2018-10-21] MEDS: ELIQUIS PO SCH ×2 (11:15→22:21)
[2018-10-21] MEDS: ROCEPHIN/NS 2 GM/100 ML 2 GM/100 ML BAG IV SCH (11:15)
--- NOTE | 2018-10-21 14:43 | Progress Note ---
Assessment and Plan Assessment and plan: Diarrhea secondary to enterocolitis - Patient is on IV antibiotics -CT showed enterocolitis Hypotension - Due to the above - Hold antihypertensives - IV fluids Generalized weakness - We'll get better with IV resuscitation Malnutrition - Nutrition consult A. fib - Recommend controlled, will continue eliquis Depression - Continue sertraline COPD - Stable - Continue on albuterol Disposition - Continue inpatient care, patient is still c/o generalized weakness and continue to have diarrhea. History Interval history: Patient was seen and evaluated this morning, patient was complaining generalized weakness, had an episode of diarrhea this morning. Hospitalist Physical - Physical exam Narrative exam: Not in cardiopulmonary distress. The patient is emaciated. Vital signs as documented. Head exam is unremarkable. No scleral icterus . Neck is without jugular venous distension, thyromegaly, or carotid bruits. Lungs are clear to auscultation. Cardiac exam reveals regular rate and Rhythm. Abdominal exam reveals normal bowel sounds. Extremities are nonedematous and both femoral and pedal pulses are normal. 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 No focal weakness. - Constitutional Vitals: Temp Pulse Resp BP Pulse Ox 97.6 F 78 16 123/76 96 10/21/18 08:58 10/21/18 08:58 10/21/18 08:58 10/21/18 08:58 10/21/18 08:58 Results - Labs CBC & Chem 7: 10/19/18 15:07 10/19/18 15:02 Labs: Laboratory Last Values WBC 4.2 K/mm3 (4.5-11.0) L 10/19/18 15:07 RBC 4.99 M/mm3 (3.65-5.03) 10/19/18 15:07 Hgb 15.3 gm/dl (10.1-14.3) H 10/19/18 15:07 Hct 44.9 % (30.3-42.9) H 10/19/18 15:07 MCV 90 fl (79-97) 10/19/18 15:07 MCH 31 pg (28-32) 10/19/18 15:07 MCHC 34 % (30-34) 10/19/18 15:07 RDW 14.5 % (13.2-15.2) 10/19/18 15:07 Plt Count 107 K/mm3 (140-440) L 10/19/18 15:07 Lymph % (Auto) 37.9 % (13.4-35.0) H 10/19/18 15:07 [place] % (Auto) 8.1 % (0.0-7.3) H 10/19/18 15:07 Eos % (Auto) 0.2 % (0.0-4.3) 10/19/18 15:07 Baso % (Auto) 0.3 % (0.0-1.8) 10/19/18 15:07 Lymph # 1.6 K/mm3 (1.2-5.4) 10/19/18 15:07 [place] # 0.3 K/mm3 (0.0-0.8) 10/19/18 15:07 Eos # 0.0 K/mm3 (0.0-0.4) 10/19/18 15:07 Baso # 0.0 K/mm3 (0.0-0.1) 10/19/18 15:07 Seg Neutrophils % 53.5 % (40.0-70.0) 10/19/18 15:07 Seg Neutrophils # 2.3 K/mm3 (1.8-7.7) 10/19/18 15:07 PT 14.6 Sec. (12.2-14.9) 10/19/18 15:02 INR 1.07 (0.87-1.13) 10/19/18 15:02 APTT 20.4 Sec. (24.2-36.6) L 10/19/18 15:02 Sodium 137 mmol/L (137-145) 10/19/18 15:02 Potassium 3.9 mmol/L (3.6-5.0) 10/19/18 15:02 Chloride 104.8 mmol/L (98-107) 10/19/18 15:02 Carbon Dioxide 18 mmol/L (22-30) L 10/19/18 15:02 Anion Gap 18 mmol/L 10/19/18 15:02 BUN 45 mg/dL (7-17) H 10/19/18 15:02 Creatinine 1.3 mg/dL (0.7-1.2) H 10/19/18 15:02 Estimated GFR 40 ml/min 10/19/18 15:02 BUN/Creatinine Ratio 35 % 10/19/18 15:02 Glucose 85 mg/dL (65-100) 10/19/18 15:02 Lactic Acid 0.70 mmol/L (0.7-2.0) 10/19/18 16:49 Calcium 9.0 mg/dL (8.4-10.2) 10/19/18 15:02 Phosphorus 4.30 mg/dL (2.5-4.5) 10/19/18 15:02 Magnesium 2.10 mg/dL (1.7-2.3) 10/19/18 15:02 Total Bilirubin 0.40 mg/dL (0.1-1.2) 10/19/18 15:02 AST 22 units/L (5-40) 10/19/18 15:02 ALT 14 units/L (7-56) 10/19/18 15:02 Alkaline Phosphatase 63 units/L (35-129) 10/19/18 15:02 Troponin T < 0.010 ng/mL (0.00-0.029) 10/19/18 15:02 NT-Pro-B Natriuret Pep 2552 pg/mL (0-900) H 10/19/18 20:15 Total Protein 7.3 g/dL (6.3-8.2) 10/19/18 15:02 Albumin 4.2 g/dL (3.9-5) 10/19/18 15:02 Albumin/Globulin Ratio 1.4 % 10/19/18 15:02 Digoxin 0.3 ng/mL (0.9-2.0) L 10/19/18 20:15 Nutrition/Malnutrition Assess - Dietary Evaluation Nutrition/Malnutrition Findings: Nutrition Notes Start: 10/20/18 11:03 Freq: Status: Active Protocol: Document 10/20/18 11:03 TW (Rec: 10/20/18 11:13 TW [email or web address]) Co-Sign 10/20/18 11:03 LP Nutrition Notes Need for Assessment generated from: clam sorter Initial or Follow up Assessment Current Diagnosis COPD,Hypertension,Heart Failure,Hyperlipidemia Other Pertinent Diagnosis GERD, depression, DVT, pneumonia Current Diet Low Sodium Diet Labs/Tests BUN: 45 Cr: 1.3 Pertinent Medications Reviewed. Height 5 ft 3 in Weight 45.8 kg [place] Body Weight (kg) 52.27 BMI 17.9 Intake Prior to Admission Poor Weight Status Underweight Subjective/Other Information RN screen for MST score. 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 Pt denied wt loss, N/V/D and chewing/ swallowing difficulty. Pt would like to try a supplement . Burn Absent Trauma Absent #1 Nutrition Diagnosis Inadequate oral intake Etiology Depression As Evidenced by Signs and Symptoms Eating less than half of meals and meeting less than 75% of kcal and protein needs Is patient on ventilator? No Is Patient Ambulatory and/or Out of Bed Yes REE-([facility]-ambulatory/OOB) [ 1218.269 NUTR.MSJOOB] Kcal/Kg value to use for calculation 32 Approximate Energy Requirements Using 1466 kcal/Kg Calculation Used for Recommendations Kcal/kg Additional Notes Protein needs: (1.0- 1.2 g/kg) (46-55 g/day) Fluid needs: 1ml/kcal Nutrition Intervention Change Diet Order: Continue current Add Supplement/Snack (indicate name/kcal Ensure Enlive daily /protein ) Provides kCal: 350 Provides Protein (gm) 20 Goal #1 Meet at least 75% of kcal and protein needs by PO and ONS intakes Goal #2 ONS tolerance Anticipated Discharge Needs: Low Sodium Diet Follow-Up By: 10/24/18 Additional Comments F/U for PO and ONS intakes
[2018-10-21] MEDS ORDERED: IMODIUM A-D PO PRN (14:44)
[2018-10-21 16:13] LABS: Calcium 7.8 mg/dL (8.4-10.2)
[2018-10-22] MEDS: FLAGYL 500 MG/100 ML 500 MG/100 ML BAG IV SCH ×3 (05:22→21:40)
[2018-10-22 08:31] LABS: Basophils % (Auto) 0.4 % (0.0-1.8); Eosinophils % (Auto) 0.4 % (0.0-4.3); Hematocrit 40.4 % (30.3-42.9); Hemoglobin 13.9 gm/dl (10.1-14.3); Lymphocytes # (Auto) 1.3 K/mm3 (1.2-5.4); Lymphocytes % (Auto) 35.5 % (13.4-35.0); Mean Corpuscular HGB Conc 34 % (30-34); Mean Corpuscular Volume 91 fl (79-97); Monocytes # (Auto) 0.4 K/mm3 (0.0-0.8); Monocytes % (Auto) 11.4 % (0.0-7.3); Red Blood Count 4.46 M/mm3 (3.65-5.03); Red Cell Distribution Width 14.5 % (13.2-15.2)
[2018-10-22 08:40] LABS: Platelet Count 94 K/mm3 (140-440)
[2018-10-22 08:48] LABS: BUN/Creatinine Ratio 16; Blood Urea Nitrogen 14 mg/dL (7-17); Calcium 8.1 mg/dL (8.4-10.2); Hemolysis Index 67
[2018-10-22] MEDS: HABITROL TD SCH (09:54)
[2018-10-22] MEDS: ROCEPHIN/NS 2 GM/100 ML 2 GM/100 ML BAG IV SCH (09:54)
[2018-10-22] MEDS: ELIQUIS PO SCH (09:55)
[2018-10-22] MEDS: celeXA PO SCH (09:55)
--- NOTE | 2018-10-22 09:55 | Progress Note ---
Assessment and Plan Assessment and plan: Diarrhea secondary to enterocolitis -Improving -Patient is on IV antibiotics -CT showed enterocolitis Hypotension - Due to volume depletion - Resolved Hypokalemia -On repletion, will monitor level Generalized weakness - Improved - PT consulted. Malnutrition - Filterer consulted BUTCH, likely prerenal azotemia -resolved Metabolic acidosis -Resolved elevated BNP -Echo ordered Uterine mass -Probably fibroid -Ultrasound recommended for further evaluation Chronic A. fib - HR controlled, - We will hold her home eliquis due to thrombocytopenia Depression, stable - Continue sertraline COPD - Stable - Continue PRN albuterol Tobacco abuse -On nicotine patch -Cessation recommended Thrombocytopenia -No evidence of active bleeding, will monitor level -home eliquis on hold Disposition: For possible discharge in 1-2 days if clinically stable History Interval history: Patient reports feeling better. She denies nausea, vomiting or diarrhea. Hospitalist Physical - Constitutional Vitals: Temp Pulse Resp BP Pulse Ox 98.1 F 73 18 114/66 99 10/22/18 03:53 10/22/18 03:53 10/22/18 03:53 10/22/18 03:53 10/22/18 03:53 General appearance: Present: no acute distress - EENT Eyes: Present: PERRL, EOM intact ENT: hearing intact, clear oral mucosa - Neck Neck: Present: supple - Respiratory Respiratory effort: normal Respiratory: bilateral: CTA - Cardiovascular Rhythm: irregularly irregular Heart Sounds: Present: S1 & S2 - Extremities Extremities: No edema - Abdominal General gastrointestinal: soft, non-tender, non-distended, normal bowel sounds - Neurologic Neurologic: CNII-XII intact Results - Labs CBC & Chem 7: 10/22/18 07:47 10/22/18 07:47 Labs: Laboratory Last Values WBC 3.5 K/mm3 (4.5-11.0) L 10/22/18 07:47 RBC 4.46 M/mm3 (3.65-5.03) 10/22/18 07:47 Hgb 13.9 gm/dl (10.1-14.3) 10/22/18 07:47 Hct 40.4 % (30.3-42.9) 10/22/18 07:47 MCV 91 fl (79-97) 10/22/18 07:47 MCH 31 pg (28-32) 10/22/18 07:47 MCHC 34 % (30-34) 10/22/18 07:47 RDW 14.5 % (13.2-15.2) 10/22/18 07:47 Plt Count 94 K/mm3 (140-440) L 10/22/18 07:47 Lymph % (Auto) 35.5 % (13.4-35.0) H 10/22/18 07:47 [place] % (Auto) 11.4 % (0.0-7.3) H 10/22/18 07:47 Eos % (Auto) 0.4 % (0.0-4.3) 10/22/18 07:47 Baso % (Auto) 0.4 % (0.0-1.8) 10/22/18 07:47 Lymph # 1.3 K/mm3 (1.2-5.4) 10/22/18 07:47 [place] # 0.4 K/mm3 (0.0-0.8) 10/22/18 07:47 Eos # 0.0 K/mm3 (0.0-0.4) 10/22/18 07:47 Baso # 0.0 K/mm3 (0.0-0.1) 10/22/18 07:47 Seg Neutrophils % 52.3 % (40.0-70.0) 10/22/18 07:47 Seg Neutrophils # 1.9 K/mm3 (1.8-7.7) 10/22/18 07:47 PT 14.6 Sec. (12.2-14.9) 10/19/18 15:02 INR 1.07 (0.87-1.13) 10/19/18 15:02 APTT 20.4 Sec. (24.2-36.6) L 10/19/18 15:02 Sodium 141 mmol/L (137-145) 10/22/18 07:47 Potassium 3.4 mmol/L (3.6-5.0) L 10/22/18 07:47 Chloride 106.3 mmol/L (98-107) 10/22/18 07:47 Carbon Dioxide 22 mmol/L (22-30) 10/22/18 07:47 Anion Gap 16 mmol/L 10/22/18 07:47 BUN 14 mg/dL (7-17) 10/22/18 07:47 Creatinine 0.9 mg/dL (0.7-1.2) 10/22/18 07:47 Estimated GFR > 60 ml/min 10/22/18 07:47 BUN/Creatinine Ratio 16 % 10/22/18 07:47 Glucose 81 mg/dL (65-100) 10/22/18 07:47 Lactic Acid 0.70 mmol/L (0.7-2.0) 10/19/18 16:49 Calcium 8.1 mg/dL (8.4-10.2) L 10/22/18 07:47 Phosphorus 4.30 mg/dL (2.5-4.5) 10/19/18 15:02 Magnesium 2.10 mg/dL (1.7-2.3) 10/19/18 15:02 Total Bilirubin 0.40 mg/dL (0.1-1.2) 10/19/18 15:02 AST 22 units/L (5-40) 10/19/18 15:02 ALT 14 units/L (7-56) 10/19/18 15:02 Alkaline Phosphatase 63 units/L (35-129) 10/19/18 15:02 Troponin T < 0.010 ng/mL (0.00-0.029) 10/19/18 15:02 NT-Pro-B Natriuret Pep 2552 pg/mL (0-900) H 10/19/18 20:15 Total Protein 7.3 g/dL (6.3-8.2) 10/19/18 15:02 Albumin 4.2 g/dL (3.9-5) 10/19/18 15:02 Albumin/Globulin Ratio 1.4 % 10/19/18 15:02 Digoxin 0.3 ng/mL (0.9-2.0) L 10/19/18 20:15 Nutrition/Malnutrition Assess - Dietary Evaluation Nutrition/Malnutrition Findings: Nutrition Notes Start: 10/20/18 11:0 3 Freq: Status: Active Protocol: Document 10/21/18 14:50 RM (Rec: 10/21/18 14:58 RM [email or web address]) Nutrition Notes Initial or Follow up Reassessment Current Diagnosis COPD,Hypertension,Heart Failure,Hyperlipidemia Other Pertinent Diagnosis GERD, depression, DVT, pneumonia Current Diet Regular Labs/Tests Reviewed Pertinent Medications Reviewed. Height 5 ft 3 in Weight 44.1 kg Usual Body Weight 45.45 kg [place] Body Weight (kg) 52.27 BMI 17.2 Subjective/Other Information Consulted for malnutrition. 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 Stated her appetite continues to be poor and that she eats half of her meals here. Admitted to diarrhea after she eats. Stated UBW was 100 lbs 2-3 months ago. No temporal or oribital wasting. Percent of energy/protein needs met: 83%/95% Burn Absent Trauma Absent #1 Nutrition Diagnosis Inadequate oral intake Diagnosis Progress(for reassessment Continues documentation) Is patient on ventilator? No Is Patient Ambulatory and/or Out of Bed Yes REE-([facility]-ambulatory/OOB) [ 1196.169 NUTR.MSJOOB] Kcal/Kg value to use for calculation 32 Approximate Energy Requirements Using 1411 kcal/Kg Calculation Used for Recommendations Kcal/kg Additional Notes Protein needs: (1.0- 1.2 g/kg) (46-55 g/day) Fluid needs: 1ml/kcal Nutrition Intervention Change Diet Order: Cardiac Add Supplement/Snack (indicate name/kcal Was not added previously. Add /protein ) Ensure Enlive daily Provides kCal: 350 Provides Protein (gm) 20 Goal #1 Continue to meet at least 75% of kcal and protein needs by PO and ONS intakes Anticipated Discharge Needs: Cardiac diet Follow-Up By: 10/24/18 Additional Comments Follow for PO and ONS intakes
[2018-10-22] MEDS: K-DUR PO SCH (16:16)
[2018-10-23] MEDS: FLAGYL 500 MG/100 ML 500 MG/100 ML BAG IV SCH ×2 (06:05→14:15)
[2018-10-23 08:50] LABS: Hematocrit 41.4 % (30.3-42.9); Hemoglobin 14.3 gm/dl (10.1-14.3); Mean Corpuscular HGB Conc 35 % (30-34); Mean Corpuscular Volume 90 fl (79-97); Red Blood Count 4.62 M/mm3 (3.65-5.03); Red Cell Distribution Width 14.3 % (13.2-15.2)
[2018-10-23 08:54] LABS: Platelet Count 84 K/mm3 (140-440)
[2018-10-23 09:08] LABS: Calcium 8.3 mg/dL (8.4-10.2)
[2018-10-23] MEDS: DUONEB *Not for PRN Use IH SCH ×3 (10:27→20:33)
[2018-10-23] MEDS: HABITROL TD SCH (10:46)
[2018-10-23] MEDS: celeXA PO SCH (10:46)
[2018-10-23] MEDS: K-DUR PO SCH (10:46)
[2018-10-23] MEDS: ROCEPHIN/NS 2 GM/100 ML 2 GM/100 ML BAG IV SCH (10:47)
--- NOTE | 2018-10-23 14:28 | Progress Note ---
Assessment and Plan Assessment and plan: Diarrhea secondary to enterocolitis -Improving, patient is tolerating her oral diet -will change IV antibiotics to oral Hypotension - Due to volume depletion, resolved Hypokalemia -resolved Generalized weakness - Improved - PT consulted. 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 fib -HR controlled -her home eliquis on hold due to thrombocytopenia Depression, stable - Continue sertraline COPD - Stable - Continue neb tx Tobacco abuse -On nicotine patch -Cessation recommended Thrombocytopenia -No evidence of active bleeding, will monitor level -home eliquis on hold Disposition: For possible discharge in 1-2 days if clinically stable History Interval history: She reports nausea without vomiting today. Her diarrhea has resolved. Hospitalist Physical - Constitutional Vitals: Temp Pulse Resp BP Pulse Ox 97.9 F 78 20 125/89 96 10/23/18 07:42 10/23/18 10:37 10/23/18 10:37 10/23/18 07:42 10/23/18 07:42 General appearance: Present: no acute distress - EENT Eyes: Present: PERRL, EOM intact ENT: hearing intact, clear oral mucosa - Neck Neck: Present: supple - Respiratory Respiratory effort: normal Respiratory: bilateral: wheezing - Cardiovascular Rhythm: regular Heart Sounds: Present: S1 & S2 - Extremities Extremities: No edema - Abdominal General gastrointestinal: soft, non-tender, non-distended, normal bowel sounds - Neurologic Neurologic: CNII-XII intact Results - Labs CBC & Chem 7: 10/23/18 08:24 10/23/18 08:24 Labs: Laboratory Last Values WBC 3.6 K/mm3 (4.5-11.0) L 10/23/18 08:24 RBC 4.62 M/mm3 (3.65-5.03) 10/23/18 08:24 Hgb 14.3 gm/dl (10.1-14.3) 10/23/18 08:24 Hct 41.4 % (30.3-42.9) 10/23/18 08:24 MCV 90 fl (79-97) 10/23/18 08:24 MCH 31 pg (28-32) 10/23/18 08:24 MCHC 35 % (30-34) H 10/23/18 08:24 RDW 14.3 % (13.2-15.2) 10/23/18 08:24 Plt Count 84 K/mm3 (140-440) L 10/23/18 08:24 Lymph % (Auto) 35.5 % (13.4-35.0) H 10/22/18 07:47 [place] % (Auto) 11.4 % (0.0-7.3) H 10/22/18 07:47 Eos % (Auto) 0.4 % (0.0-4.3) 10/22/18 07:47 Baso % (Auto) 0.4 % (0.0-1.8) 10/22/18 07:47 Lymph # 1.3 K/mm3 (1.2-5.4) 10/22/18 07:47 [place] # 0.4 K/mm3 (0.0-0.8) 10/22/18 07:47 Eos # 0.0 K/mm3 (0.0-0.4) 10/22/18 07:47 Baso # 0.0 K/mm3 (0.0-0.1) 10/22/18 07:47 Seg Neutrophils % 52.3 % (40.0-70.0) 10/22/18 07:47 Seg Neutrophils # 1.9 K/mm3 (1.8-7.7) 10/22/18 07:47 PT 14.6 Sec. (12.2-14.9) 10/19/18 15:02 INR 1.07 (0.87-1.13) 10/19/18 15:02 APTT 20.4 Sec. (24.2-36.6) L 10/19/18 15:02 Sodium 143 mmol/L (137-145) 10/23/18 08:24 Potassium 4.1 mmol/L (3.6-5.0) D 10/23/18 08:24 Chloride 109.2 mmol/L (98-107) H 10/23/18 08:24 Carbon Dioxide 23 mmol/L (22-30) 10/23/18 08:24 Anion Gap 15 mmol/L 10/23/18 08:24 BUN 17 mg/dL (7-17) 10/23/18 08:24 Creatinine 1.0 mg/dL (0.7-1.2) 10/23/18 08:24 Estimated GFR 55 ml/min 10/23/18 08:24 BUN/Creatinine Ratio 17 % 10/23/18 08:24 Glucose 89 mg/dL (65-100) 10/23/18 08:24 Lactic Acid 0.70 mmol/L (0.7-2.0) 10/19/18 16:49 Calcium 8.3 mg/dL (8.4-10.2) L 10/23/18 08:24 Phosphorus 4.30 mg/dL (2.5-4.5) 10/19/18 15:02 Magnesium 1.70 mg/dL (1.7-2.3) 10/23/18 08:24 Total Bilirubin 0.40 mg/dL (0.1-1.2) 10/19/18 15:02 AST 22 units/L (5-40) 10/19/18 15:02 ALT 14 units/L (7-56) 10/19/18 15:02 Alkaline Phosphatase 63 units/L (35-129) 10/19/18 15:02 Troponin T < 0.010 ng/mL (0.00-0.029) 10/19/18 15:02 NT-Pro-B Natriuret Pep 2552 pg/mL (0-900) H 10/19/18 20:15 Total Protein 7.3 g/dL (6.3-8.2) 10/19/18 15:02 Albumin 4.2 g/dL (3.9-5) 10/19/18 15:02 Albumin/Globulin Ratio 1.4 % 10/19/18 15:02 Digoxin 0.3 ng/mL (0.9-2.0) L 10/19/18 20:15 Active Medications - Current Medications Current Medications: Generic Name Dose Route Start Last Admin Trade Name Freq PRN Reason Stop Dose Admin Acetaminophen 650 mg 10/19/18 21:52 10/20/18 22:37 Tylenol PO 650 mg Q4H PRN Administration Fever >101 Albuterol/Ipratropium 1 ampul 10/23/18 10:00 10/23/18 10:27 Duoneb *Not For Prn Use* IH 1 ampul Q6HRT ANGÉLICA Administration Citalopram Hydrobromide 20 mg 10/20/18 20:00 10/23/18 10:46 Celexa PO 20 mg QDAY ANGÉLICA Administration Levofloxacin 500 mg 10/24/18 10:00 Levaquin PO Q24HR ANGÉLICA Loperamide HCl 2 mg 10/21/18 14:44 10/21/18 22:21 Imodium A-D PO 2 mg Q2H PRN Administration Diarrhea Metronidazole 500 mg 10/23/18 22:00 Flagyl PO Q8HR ANGÉLICA Protocol Nicotine 21 mg 10/21/18 10:00 10/23/18 10:46 Habitrol TD 21 mg QDAY ANGÉLICA Administration Ondansetron HCl 4 mg 10/19/18 21:50 Zofran IV Q8H PRN Nausea And Vomiting Potassium Chloride 40 meq 10/22/18 10:00 10/23/18 10:46 K-Dur PO 10/24/18 09:59 40 meq QDAY ANGÉLICA Administration Nutrition/Malnutrition Assess - Dietary Evaluation Nutrition/Malnutrition Findings: Nutrition Notes Start: 10/20/18 11:03 Freq: Status: Active Protocol: Document 10/21/18 14:50 RM (Rec: 10/21/18 14:58 RM [email or web address]) Nutrition Notes Initial or Follow up Reassessment Current Diagnosis COPD,Hypertension,Heart Failure,Hyperlipidemia Other Pertinent Diagnosis GERD, depression, DVT, pneumonia Current Diet Regular Labs/Tests Reviewed Pertinent Medications Reviewed. Height 5 ft 3 in Weight 44.1 kg Usual Body Weight 45.45 kg [place] Body Weight (kg) 52.27 BMI 17.2 Subjective/Other Information Consulted for malnutrition. 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 Stated her appetite continues to be poor and that she eats half of her meals here. Admitted to diarrhea after she eats. Stated UBW was 100 lbs 2-3 months ago. No temporal or oribital wasting. Percent of energy/protein needs met: 83%/95% Burn Absent Trauma Absent #1 Nutrition Diagnosis Inadequate oral intake Diagnosis Progress(for reassessment Continues documentation) Is patient on ventilator? No Is Patient Ambulatory and/or Out of Bed Yes REE-([facility]-ambulatory/OOB) [ 5786.169 NUTR.[id number]] Kcal/Kg value to use for calculation 32 Approximate Energy Requirements Using 1411 kcal/Kg Calculation Used for Recommendations Kcal/kg Additional Notes Protein needs: (1.0- 1.2 g/kg) (46-55 g/day) Fluid needs: 1ml/kcal Nutrition Intervention Change Diet Order: Cardiac Add Supplement/Snack (indicate name/kcal Was not added previously. Add /protein ) Ensure Enlive daily Provides kCal: 350 Provides Protein (gm) 20 Goal #1 Continue to meet at least 75% of kcal and protein needs by PO and ONS intakes Anticipated Discharge Needs: Cardiac diet Follow-Up By: 10/24/18 Additional Comments Follow for PO and ONS intakes
--- NOTE | 2018-10-23 15:16 | Ultrasound Report ---
ULTRASOUND TRANSVAGINAL History: Uterine mass. Transvaginal ultrasound imaging. Comparison: CT abdomen and pelvis with contrast dated 10/19/18. Findings: The uterus is anteverted. The uterus measures 8.4 x 4.9 x 6.7 cm. There are appear to be 2 solid masses within the uterus. The largest mass measures 6.7 x 2.5 x 6.2 cm within the right lateral wall of the uterus. A second mass measuring 2.1 x 1.5 cm is identified in the left lateral wall. The ultrasound appearance of these masses are nonspecific. They most likely represent uterine fibroids. The endometrial stripe is not clearly identified. No necrotic endometrial mass is identified. The left ovary is within normal limits measuring 1.1 x 0.5 x 1.6 cm. The right ovary is not identified. There is minimal free fluid in the cul-de-sac. Impression: Abnormal uterus. At least 2 uterine masses are identified as outlined above. I suspect these represent uterine fibroids, however, I do not clearly see the endometrial stripe. The endometrium may be atrophic. This does not have the appearance of a necrotic endometrial mass. Consider short term followup or further evaluation with MR pelvis with contrast if needed.
[2018-10-23] MEDS: LEVAQUIN PO SCH (16:07)
[2018-10-23] MEDS: ZESTRIL PO SCH (16:07)
[2018-10-23] MEDS: COREG PO SCH (21:46)
[2018-10-23] MEDS: FLAGYL PO SCH (21:46)
[2018-10-24] MEDS: DUONEB *Not for PRN Use IH SCH ×4 (02:42→22:25)
[2018-10-24] MEDS: FLAGYL PO SCH ×3 (06:33→21:15)
[2018-10-24] MEDS: celeXA PO SCH (09:58)
[2018-10-24] MEDS: LEVAQUIN PO SCH (09:58)
[2018-10-24] MEDS: COREG PO SCH ×2 (09:58→21:15)
[2018-10-24] MEDS: ZESTRIL PO SCH (09:58)
[2018-10-24] MEDS: HABITROL TD SCH (09:58)
[2018-10-24 10:08] LABS: Hematocrit 35.3 % (30.3-42.9); Hemoglobin 12.1 gm/dl (10.1-14.3); Mean Corpuscular HGB Conc 34 % (30-34); Mean Corpuscular Volume 91 fl (79-97); Red Blood Count 3.88 M/mm3 (3.65-5.03); Red Cell Distribution Width 15.1 % (13.2-15.2)
[2018-10-24 10:14] LABS: Platelet Count 83 K/mm3 (140-440)
--- NOTE | 2018-10-24 11:51 | Progress Note ---
Assessment and Plan Assessment and plan: Diarrhea secondary to enterocolitis -Improving, patient is tolerating her oral diet -will change IV antibiotics to oral Hypotension - Due to volume depletion, resolved Hypokalemia -resolved Generalized weakness - Improved - PT consulted. Malnutrition - Apiarist consulted [facility], likely prerenal azotemia -resolved Metabolic acidosis -Resolved H/O combined systolic and diastolic HF -repeat echo showed EF of 20-25% with diastolic dysfunction -will start low dose Coreg and lisinopril Uterine mass -Probably fibroid -Transvaginal Ultrasound report pending Chronic A. fib -HR controlled -her home eliquis on hold due to thrombocytopenia Depression, stable - Continue sertraline COPD - Stable - Continue neb tx Tobacco abuse -On nicotine patch -Cessation recommended Thrombocytopenia -No evidence of active bleeding, will monitor level -home eliquis on hold Disposition: For possible discharge in 1-2 days if clinically stable Await PT evaluation for discharge destination. Patient may need SNF History Interval history: No new issues overnight. Hospitalist Physical - Constitutional Vitals: Temp Pulse Resp BP Pulse Ox 97.5 F L 114 H 18 100/61 93 10/24/18 11:38 10/24/18 11:38 10/24/18 11:38 10/24/18 11:38 10/24/18 11:38 General appearance: Present: no acute distress - EENT Eyes: Present: PERRL, EOM intact ENT: hearing intact, clear oral mucosa, dentition normal - Neck Neck: Present: supple, normal ROM - Respiratory Respiratory effort: normal Respiratory: bilateral: CTA - Cardiovascular Rhythm: regular Heart Sounds: Present: S1 & S2. Absent: gallop, rub - Extremities Extremities: no ischemia, No edema, Full ROM - Abdominal General gastrointestinal: soft, non-tender, non-distended, normal bowel sounds - Integumentary Integumentary: Present: clear, warm, dry - Neurologic Neurologic: CNII-XII intact, moves all extremities Results - Labs CBC & Chem 7: 10/24/18 09:48 10/23/18 08:24 Labs: Laboratory Last Values WBC 3.4 K/mm3 (4.5-11.0) L 10/24/18 09:48 RBC 3.88 M/mm3 (3.65-5.03) 10/24/18 09:48 Hgb 12.1 gm/dl (10.1-14.3) 10/24/18 09:48 Hct 35.3 % (30.3-42.9) D 10/24/18 09:48 MCV 91 fl (79-97) 10/24/18 09:48 MCH 31 pg (28-32) 10/24/18 09:48 MCHC 34 % (30-34) 10/24/18 09:48 RDW 15.1 % (13.2-15.2) 10/24/18 09:48 Plt Count 83 K/mm3 (140-440) L 10/24/18 09:48 Lymph % (Auto) 35.5 % (13.4-35.0) H 10/22/18 07:47 Cannon % (Auto) 11.4 % (0.0-7.3) H 10/22/18 07:47 Eos % (Auto) 0.4 % (0.0-4.3) 10/22/18 07:47 Baso % (Auto) 0.4 % (0.0-1.8) 10/22/18 07:47 Lymph # 1.3 K/mm3 (1.2-5.4) 10/22/18 07:47 Cannon # 0.4 K/mm3 (0.0-0.8) 10/22/18 07:47 Eos # 0.0 K/mm3 (0.0-0.4) 10/22/18 07:47 Baso # 0.0 K/mm3 (0.0-0.1) 10/22/18 07:47 Seg Neutrophils % 52.3 % (40.0-70.0) 10/22/18 07:47 Seg Neutrophils # 1.9 K/mm3 (1.8-7.7) 10/22/18 07:47 PT 14.6 Sec. (12.2-14.9) 10/19/18 15:02 INR 1.07 (0.87-1.13) 10/19/18 15:02 APTT 20.4 Sec. (24.2-36.6) L 10/19/18 15:02 Sodium 143 mmol/L (137-145) 10/23/18 08:24 Potassium 4.1 mmol/L (3.6-5.0) D 10/23/18 08:24 Chloride 109.2 mmol/L (98-107) H 10/23/18 08:24 Carbon Dioxide 23 mmol/L (22-30) 10/23/18 08:24 Anion Gap 15 mmol/L 10/23/18 08:24 BUN 17 mg/dL (7-17) 10/23/18 08:24 Creatinine 1.0 mg/dL (0.7-1.2) 10/23/18 08:24 Estimated GFR 55 ml/min 10/23/18 08:24 BUN/Creatinine Ratio 17 % 10/23/18 08:24 Glucose 89 mg/dL (65-100) 10/23/18 08:24 Lactic Acid 0.70 mmol/L (0.7-2.0) 10/19/18 16:49 Calcium 8.3 mg/dL (8.4-10.2) L 10/23/18 08:24 Phosphorus 4.30 mg/dL (2.5-4.5) 10/19/18 15:02 Magnesium 1.70 mg/dL (1.7-2.3) 10/23/18 08:24 Total Bilirubin 0.40 mg/dL (0.1-1.2) 10/19/18 15:02 AST 22 units/L (5-40) 10/19/18 15:02 ALT 14 units/L (7-56) 10/19/18 15:02 Alkaline Phosphatase 63 units/L (35-129) 10/19/18 15:02 Troponin T < 0.010 ng/mL (0.00-0.029) 10/19/18 15:02 NT-Pro-B Natriuret Pep 2552 pg/mL (0-900) H 10/19/18 20:15 Total Protein 7.3 g/dL (6.3-8.2) 10/19/18 15:02 Albumin 4.2 g/dL (3.9-5) 10/19/18 15:02 Albumin/Globulin Ratio 1.4 % 10/19/18 15:02 Digoxin 0.3 ng/mL (0.9-2.0) L 10/19/18 20:15 Active Medications - Current Medications Current Medications: Generic Name Dose Route Start Last Admin Trade Name Freq PRN Reason Stop Dose Admin Acetaminophen 650 mg 10/19/18 21:52 10/20/18 22:37 Tylenol PO 650 mg Q4H PRN Administration Fever >101 Albuterol/Ipratropium 1 ampul 10/23/18 10:00 10/24/18 10:00 Duoneb *Not For Prn Use* IH 1 ampul Q6HRT ANGÉLICA Administration Carvedilol 3.125 mg 10/23/18 22:00 10/24/18 09:58 Coreg PO 3.125 mg BID ANGÉLICA Administration Citalopram Hydrobromide 20 mg 10/20/18 20:00 10/24/18 09:58 Celexa PO 20 mg QDAY ANGÉLICA Administration Levofloxacin 500 mg 10/23/18 15:00 10/24/18 09:58 Levaquin PO 500 mg Q24HR ANGÉLICA Administration Lisinopril 5 mg 10/23/18 15:00 10/24/18 09:58 Zestril PO 5 mg QDAY ANGÉLICA Administration Loperamide HCl 2 mg 10/21/18 14:44 10/21/18 22:21 Imodium A-D PO 2 mg Q2H PRN Administration Diarrhea Metronidazole 500 mg 10/23/18 22:00 10/24/18 06:33 Flagyl PO 500 mg Q8HR ANGÉLICA Administration Protocol Nicotine 21 mg 10/21/18 10:00 10/24/18 09:58 Habitrol TD 21 mg QDAY ANGÉLICA Administration Ondansetron HCl 4 mg 10/19/18 21:50 Zofran IV Q8H PRN Nausea And Vomiting Nutrition/Malnutrition Assess - Dietary Evaluation Nutrition/Malnutrition Findings: Nutrition Notes Start: 10/20/18 11:03 Freq: Status: Active Protocol: Document 10/21/18 14:50 RM (Rec: 10/21/18 14:58 [id number]) Nutrition Notes Initial or Follow up Reassessment Current Diagnosis COPD,Hypertension,Heart Failure,Hyperlipidemia Other Pertinent Diagnosis GERD, depression, DVT, pneumonia Current Diet Regular Labs/Tests Reviewed Pertinent Medications Reviewed. Height 5 ft 3 in Weight 44.1 kg Usual Body Weight 45.45 kg [place] Body Weight (kg) 52.27 BMI 17.2 Subjective/Other Information Consulted for malnutrition. Pt stated that [employer] he appetite was poor and that she did not eat anything for 1-2 weeks. Stated her appetite continues to be poor and that she eats half of her meals here. Admitted to diarrhea after she eats. Stated UBW was 100 lbs 2-3 months ago. No temporal or oribital wasting. Percent of energy/protein needs met: 83%/95% Burn Absent Trauma Absent #1 Nutrition Diagnosis Inadequate oral intake Diagnosis Progress(for reassessment Continues documentation) Is patient on ventilator? No Is Patient Ambulatory and/or Out of Bed Yes REE-([place]-St. Jeor-ambulatory/OOB) [ 1196.169 NUTR.[id number]] Kcal/Kg value to use for calculation 32 Approximate Energy Requirements Using 1411 kcal/Kg Calculation Used for Recommendations Kcal/kg Additional Notes Protein needs: (1.0- 1.2 g/kg) (46-55 g/day) Fluid needs: 1ml/kcal Nutrition Intervention Change Diet Order: Cardiac Add Supplement/Snack (indicate name/kcal Was not added previously. Add /protein ) Ensure Enlive daily Provides kCal: 350 Provides Protein (gm) 20 Goal #1 Continue to meet at least 75% of kcal and protein needs by PO and ONS intakes Anticipated Discharge Needs: Cardiac diet Follow-Up By: 10/24/18 Additional Comments Follow for PO and ONS intakes
[2018-10-25] MEDS: DUONEB *Not for PRN Use IH SCH ×3 (03:04→13:29)
[2018-10-25] MEDS: FLAGYL PO SCH (06:14)
--- NOTE | 2018-10-25 07:35 | Discharge Summary ---
Providers - Providers Date of Admission: 10/20/18 13:57 Date of discharge: 10/25/18 Attending physician: ARLEN VEGA 10/20/18 19:28 Consult to Dietitian/Nutrition [CONS] Routine Physician Instructions: Reason For Exam: Reason for Consult: Malnutrition 10/22/18 17:00 Physical Therapy Evaluation and Treat [CONS] Routine Comment: Reason For Exam: generalized weakness 10/24/18 11:43 Physical Therapy Evaluation and Treat [CONS] Routine Comment: Reason For Exam: eval, reorder [facility] Reason for admission: diarrhea and weakness Condition: Stable Hospital course: Mrs. Jacobo is a 72 yo female with hx of COPD, chronic systolic CHF EF 20-30%, HTN, UT, CVA, tobacco abuse and atrial fibrillation who presented with hypotension, poor appetite, generalized weakness and diarrhea. She presented from Dr. Elaina Salgado office with hypotension via EMS. In PCP's office, Bp noted to be 78/56. She denied chest, head or abdominal pain. The patient underwent CT scan of the abdomen and pelvis which revealed enterocolitis. Patient received IV antibiotics with significant improvement. Diarrhea resolved. The hypotension was felt to be secondary to dehydration/vasomotor nephropathy from volume depletion due to diarrhea. Antihypertensives were held initially. Patient have further follow-up of her combined systolic and diastolic heart failure with repeat echocardiogram revealing EF of 20-25% with diastolic dysfunction. Low-dose Coreg and lisinopril were initiated. Blood pressure tolerated. Patient was evaluated by PT who recommended no rehabilitation or home needs. Therefore, patient was felt to have received maximal hospital benefit and will discharge home. Dedicated discharge time 32 minutes. Disposition: - TO HOME OR SELFCARE Time spent for discharge: 32 - Discharge Diagnoses (1) Enterocolitis Status: Acute (2) Diarrhea Status: Acute (3) Hypotension Status: Acute (4) Volume depletion Status: Acute (5) Vasomotor nephropathy Status: Acute (6) Chronic a-fib Status: Chronic (7) GERD (gastroesophageal reflux disease) Status: Chronic Qualifiers: Esophagitis presence: without esophagitis Qualified Code(s): K21.9 - Gastro-esophageal reflux disease without esophagitis (8) HLD (hyperlipidemia) Status: Chronic Qualifiers: Hyperlipidemia type: mixed hyperlipidemia Qualified Code(s): E78.2 - Mixed hyperlipidemia (9) HTN (hypertension) Status: Chronic Qualifiers: Hypertension type: essential hypertension Qualified Code(s): I10 - Essential (primary) hypertension Core Measure Documentation - Palliative Care Palliative Care/ Comfort Measures: Not Applicable - Core Measures Any of the following diagnoses?: none Exam - Constitutional Vitals: Temp Pulse Resp BP Pulse Ox 98.3 F 111 H 16 107/75 89 10/25/18 05:45 10/25/18 05:45 10/25/18 05:45 10/25/18 05:45 10/25/18 05:45 General appearance: Present: no acute distress, well-nourished - EENT Eyes: Present: PERRL ENT: hearing intact, clear oral mucosa - Neck Neck: Present: supple, normal ROM - Respiratory Respiratory effort: normal Respiratory: bilateral: CTA - Cardiovascular Heart Sounds: Present: S1 & S2. Absent: rub, click - Extremities Extremities: pulses symmetrical, No edema Peripheral Pulses: within normal limits - Abdominal General gastrointestinal: Present: soft, non-tender, non-distended, normal bowel sounds Female genitourinary: Present: normal - Integumentary Integumentary: Present: clear, warm, dry - Musculoskeletal Musculoskeletal: gait normal, strength equal bilaterally - Psychiatric Psychiatric: appropriate mood/affect, intact judgment & insight - Neurologic Neurologic: CNII-XII intact, moves all extremities Plan Activity: no restrictions Weight Bearing Status: Weight Bear as Tolerated Diet: regular Follow up with: MACARENA MOSSWILBRAHAM MD KENNY [Primary Care Provider] - 3-5 Days Prescriptions: Citalopram [Celexa] 20 mg PO QDAY #30 tablet Carvedilol [Coreg] 3.125 mg PO BID #60 tablet Rosuvastatin Calcium [Crestor] 20 mg PO DAILY #30 tablet Apixaban [Eliquis] 5 mg PO Q12HR #60 tablet metroNIDAZOLE [Flagyl TAB] 500 mg PO Q8HR #21 tablet Loperamide [Imodium A-D] 2 mg PO Q2H PRN #10 udc PRN Reason: Diarrhea Furosemide [Lasix TAB] 20 mg PO QDAY #10 tablet levoFLOXacin [Levaquin TAB] 500 mg PO Q24HR #7 tablet
[2018-10-25] MEDS: COREG PO SCH (10:01)
[2018-10-25] MEDS: HABITROL TD SCH (10:01)
[2018-10-25] MEDS: celeXA PO SCH (10:01)
[2018-10-25] MEDS: LEVAQUIN PO SCH (10:01)
[2018-10-25] MEDS: ZESTRIL PO SCH (10:01)
[2018-10-25 12:16] VITALS: BP 94/71
== END 2018-10-25 17:43 | disposition home or self-care (01) | DRG 682 ==
LOC: ED 14:09 → 4A 21:46 → OBSVTOIN 10-20 13:57
PROVIDERS: ADMIT Internal Medicine; ATTEND Hospitalist
DX: N17.0 Acute kidney failure with tubular necrosis (principal); I50.43 Acute on chronic combined systolic (congestive) and diastolic (congestive) heart failure; J44.1 Chronic obstructive pulmonary disease with (acute) exacerbation; I42.0 Dilated cardiomyopathy; E46 Unspecified protein-calorie malnutrition; Z68.1 Body mass index [BMI] 19.9 or less, adult; K52.9 Noninfective gastroenteritis and colitis, unspecified; I11.0 Hypertensive heart disease with heart failure; F32.9 Major depressive disorder, single episode, unspecified; I48.2 Chronic atrial fibrillation; D69.6 Thrombocytopenia, unspecified; E78.2 Mixed hyperlipidemia; E86.9 Volume depletion, unspecified; F17.210 Nicotine dependence, cigarettes, uncomplicated; E86.0 Dehydration; I95.9 Hypotension, unspecified; Z82.49 Family history of ischemic heart disease and other diseases of the circulatory system; I25.2 Old myocardial infarction; Z86.73 Personal history of transient ischemic attack (TIA), and cerebral infarction without residual deficits; Z79.51 Long term (current) use of inhaled steroids; Z79.899 Other long term (current) drug therapy; Z71.6 Tobacco abuse counseling
CPT/HCPCS: 36415; 71046; 71260; 74177; 76830; 80048; 80053; 80162; 82140; 83735; 83880; 84100; 84484; 85025; 85027; 85610; 85730; 87040; 93005; 93010; 93306; 94640; 96365; 96366; 99406; G0378; J0456; J0696; J1160; J1644; J3480; J7030; J7040; J7050; Q9967

== ENCOUNTER 2019-01-18 16:11 | Inpatient (IN) | payer MEDICARE ==
[2019-01-18] MEDS ORDERED: CARDIZEM IV ONE ×2 (16:44→17:09)
--- NOTE | 2019-01-18 16:55 | Emergency Department Report ---
ED Shortness of Breath HPI - General Chief Complaint: Dyspnea/Respdistress Stated Complaint: PIERO Time Seen by Provider: 01/18/19 16:39 Source: patient, EMS Mode of arrival: Wheelchair Limitations: No Limitations - History of Present Illness Initial Comments: CC: "I don't know. I just don't feel right." HPI: Mrs. Jacobo is a 73 yo female with hx of CHF, COPD, Atrial Fibrillation, Pneumonia, dyslipidemia, GERD, depression who presents with generalized malaise and dyspnea. Symptoms began this morning. She denies pain. She arrived per EMS. Her PCP is Dr. Elaina Salgado. She stated that her PCP took her off all her medications. Her last visit with her PCP was last week. I spoke with her daughter Marjan Ahn who does not believe that her PCP would take her off her medications. Patient lives with her grandson. MD Complaint: shortness of breath -: Gradual, This morning Severity: mild, moderate Consistency: constant Improves With: nothing Worsens With: nothing Known History Of: COPD, congestive heart failure, recurrent pnemonia, other (atrial fibrillation) Context: medication noncompliance Associated Symptoms: denies other symptoms - Related Data Previous Rx's Medication Instructions Recorded Last Taken Type ALBUTEROL NEB's [Proventil 0.083% 2.5 mg IH Q4HRT PRN #60 nebu 10/09/17 Unknown Rx NEBS] Ipratropium/Albuterol Sulfate 1 ampul IH Q6HR #60 ampul.neb 10/09/17 Unknown Rx [DUONEB *Not for PRN Use*] Nebulizer and Compressor [Portable 1 each QID #1 each 10/09/17 Unknown Rx Nebulizer System] Nicotine [Habitrol] 21 mg TD QDAY #30 patch 04/12/18 Unknown Rx Apixaban [Eliquis] 5 mg PO Q12HR #60 tablet 10/25/18 Unknown Rx Carvedilol [Coreg] 3.125 mg PO BID #60 tablet 10/25/18 Unknown Rx Citalopram [Celexa] 20 mg PO QDAY #30 tablet 10/25/18 Unknown Rx Furosemide [Lasix TAB] 20 mg PO QDAY #10 tablet 10/25/18 Unknown Rx Loperamide [Imodium A-D] 2 mg PO Q2H PRN #10 udc 10/25/18 Unknown Rx Rosuvastatin Calcium [Crestor] 20 mg PO DAILY #30 tablet 10/25/18 Unknown Rx levoFLOXacin [Levaquin TAB] 500 mg PO Q24HR #7 tablet 10/25/18 Unknown Rx metroNIDAZOLE [Flagyl TAB] 500 mg PO Q8HR #21 tablet 10/25/18 Unknown Rx Allergies Allergy/AdvReac Type Severity Reaction Status Date / Time No Known Allergies Allergy Verified 10/19/18 14:21 ED Review of Systems ROS: Stated complaint: PIERO Other details as noted in HPI Comment: All other systems reviewed and negative Constitutional: malaise Respiratory: shortness of breath Cardiovascular: denies: palpitations ED Past Medical Hx - Past Medical History Previous Medical History?: Yes Hx Hypertension: Yes Hx Heart Attack/AMI: Yes Hx Congestive Heart Failure: Yes (card cath ef 40-45%, minimal coronary irregularities) Hx Diabetes: No Hx COPD: Yes Additional medical history: pneumonia. Atrial fibrillation. Dilated cardiomyopathy - Surgical History Hx Breast Surgery: Yes Additional Surgical History: breast surgery - Social History Smoking Status: Current Every Day Smoker - Medications Home Medications: Home Medications Medication Instructions Recorded Confirmed Last Taken Type ALBUTEROL NEB's [Proventil 0.083% 2.5 mg IH Q4HRT PRN #60 nebu 10/09/17 10/20/18 Unknown Rx NEBS] Ipratropium/Albuterol Sulfate 1 ampul IH Q6HR #60 ampul.neb 10/09/17 10/20/18 Unknown Rx [DUONEB *Not for PRN Use*] Nebulizer and Compressor [Portable 1 each QID #1 each 10/09/17 10/20/18 Unknown Rx Nebulizer System] Nicotine [Habitrol] 21 mg TD QDAY #30 patch 04/12/18 10/20/18 Unknown Rx Apixaban [Eliquis] 5 mg PO Q12HR #60 tablet 10/25/18 Unknown Rx Carvedilol [Coreg] 3.125 mg PO BID #60 tablet 10/25/18 Unknown Rx Citalopram [Celexa] 20 mg PO QDAY #30 tablet 10/25/18 Unknown Rx Furosemide [Lasix TAB] 20 mg PO QDAY #10 tablet 10/25/18 Unknown Rx Loperamide [Imodium A-D] 2 mg PO Q2H PRN #10 udc 10/25/18 Unknown Rx Rosuvastatin Calcium [Crestor] 20 mg PO DAILY #30 tablet 10/25/18 Unknown Rx levoFLOXacin [Levaquin TAB] 500 mg PO Q24HR #7 tablet 10/25/18 Unknown Rx metroNIDAZOLE [Flagyl TAB] 500 mg PO Q8HR #21 tablet 10/25/18 Unknown Rx ED Physical Exam - General Limitations: No Limitations General appearance: alert, in no apparent distress, other (awake talkative slig htly anxious) - Head Head exam: Present: atraumatic, normocephalic - Eye Eye exam: Present: normal appearance - ENT ENT exam: Present: mucous membranes moist - Neck Neck exam: Present: normal inspection, full ROM - Respiratory Respiratory exam: Present: normal lung sounds bilaterally. Absent: respiratory distress, wheezes, rales, rhonchi, chest wall tenderness - Cardiovascular Cardiovascular Exam: Present: tachycardia, irregular rhythm. Absent: systolic murmur, diastolic murmur, rubs, gallop - GI/Abdominal GI/Abdominal exam: Present: soft, normal bowel sounds. Absent: distended, tenderness, guarding, rebound - Extremities Exam Extremities exam: Present: normal inspection - Back Exam Back exam: Present: normal inspection - Neurological Exam Neurological exam: Present: alert, oriented X3 - Psychiatric Psychiatric exam: Present: normal affect, anxious - Skin Skin exam: Present: warm, dry, intact, normal color. Absent: rash ED Course Vital Signs 01/18/19 01/18/19 16:19 17:02 Temperature 97.8 F Pulse Rate 56 L 165 H Respiratory 19 25 H Rate Blood Pressure 146/92 138/82 [Left] O2 Sat by Pulse 97 97 Oximetry ED Medical Decision Making - Lab Data Result diagrams: 01/18/19 Unknown 01/18/19 Unknown - EKG Data 01/18/19 17:23 EKG obtained 1717 Atrial fibrillation RVR rate 120 beats a minute normal axis prolonged QT interval nonspecific ST-T wave pattern - Radiology Data Radiology results: report reviewed According to radiology report, portable chest x-ray revealed stable cardiomegaly without acute process - Medical Decision Making Mrs. Jacobo is a 73 yo female who presents with dyspnea and atrial fibrillation RVR. She admits to medication noncompliance. She stated her PCP took her off her all her medications. Her daughter does not suspect that this is true. She has normal blood pressure. Awaiting diltiazem drip infusion. Diltiazem boluses decreased heart rate from 170s to 120. She will need anticoagulation. Metatarsal service in fair condition. Labs notable for greatly elevated BNP, elevated TSH, normal troponin, slightly elevated AST ALT Critical Care Time: Yes Critical care time in (mins) excluding proc time.: 40 Critical care attestation.: If time is entered above; I have spent that time in minutes in the direct care of this critically ill patient, excluding procedure time. 40 minutes of critical care time excluding procedures were used in the care of the patient. I spoke with family member by phone. Patient required multiple assessments and interventions. I reviewed the electronic medical record. I spoke with consultants involved in the care of the patient. ED Disposition Clinical Impression: Atrial fibrillation with RVR, Acute dyspnea, COPD (chronic obstructive pulmonary disease), CHF (congestive heart failure) Disposition: OP ADMIT IP TO THIS HOSP Is pt being admited?: Yes Does the pt Need Aspirin: No
[2019-01-18 17:14] LABS: Basophils # (Auto) 0.1 K/mm3 (0.0-0.1); Basophils % (Auto) 1.1 % (0.0-1.8); Eosinophils % (Auto) 0.1 % (0.0-4.3); Hematocrit 37.2 % (30.3-42.9); Hemoglobin 13.1 gm/dl (10.1-14.3); Lymphocytes # (Auto) 1.1 K/mm3 (1.2-5.4); Lymphocytes % (Auto) 22.3 % (13.4-35.0); Mean Corpuscular HGB Conc 35 % (30-34); Mean Corpuscular Volume 94 fl (79-97); Monocytes # (Auto) 0.5 K/mm3 (0.0-0.8); Monocytes % (Auto) 9.9 % (0.0-7.3); Platelet Count 107 K/mm3 (140-440); Red Blood Count 3.96 M/mm3 (3.65-5.03); Red Cell Distribution Width 13.9 % (13.2-15.2)
--- NOTE | 2019-01-18 17:20 | XRay Report ---
PROCEDURE: XR CHEST 1V AP TECHNIQUE: Chest radiograph single view. HISTORY: Dysrhythmia COMPARISONS: Chest x-ray October 19, 2018 . FINDINGS: Heart: Cardiomegaly, stable. Mediastinum/Vessels: Trachea midline. Atherosclerotic calcification in aorta. Lungs/Pleural space: No pneumothorax. No sizable effusion. No acute airspace disease. Stable hyperex pansion. Bony thorax: No acute osseous abnormality. Life support devices: None. IMPRESSION: No significant interval change. Stable cardiomegaly. No acute pulmonary disease. This document is electronically signed by Ralf Ascencio MD., January 18 2019 05:19:09 PM ET
[2019-01-18 17:37] LABS: Alanine Aminotransferase 60 units/L (7-56); BUN/Creatinine Ratio 18; Blood Urea Nitrogen 24 mg/dL (7-17); Calcium 9.3 mg/dL (8.4-10.2); Hemolysis Index 67
[2019-01-18] MEDS: CARDIZEM/D5W 100MG/100ML 100 MG/100 ML BAG IV SCH (19:20)
[2019-01-18] MEDS ORDERED: LOPRESSOR IV ONE (20:55)
[2019-01-18] MEDS ORDERED: TYLENOL PO PRN (21:21)
[2019-01-18] MEDS ORDERED: ZOFRAN IV PRN (21:21)
--- NOTE | 2019-01-18 21:24 | History and Physical Report ---
History of Present Illness Date of examination: 01/18/19 History of present illness: 73 -year-old woman with history of CHF, coronary artery disease, A. fib, depression, COPD, hypertension,comes to the emergency room with complaints of palpitations and shortness of breath 1 week, worse over the last few days. She was taken off her Lasix, Aldactone, Coreg and lisinopril 2 weeks ago secondary to hypotension. The emergency room she was found to be in A. fib with RVR, started on a Cardizem drip Review of systems Constitutional: no weight loss, chills, fever Ears, eyes, nose, mouth and throat: no nasal congestion, no nasal discharge, no sinus pressure, no vision change, no red eye. Neck: No neck pain or rigidity. Cardiovascular:+ palpitations, no chest pain Respiratory: no cough Gastrointestinal: no hematochezia, abdominal pain Genitourinary : no frequency , no hematuria Musculoskeletal: no joint swelling or muscle ache Integumentary: no rash, no pruritis Neurological: no parathesias, no focal weakness Endocrine: no cold or heat intolerance, no polyuria or polydipsia Hematologic/Lymphatic: no easy bruising, no easy bleeding, no gland swelling Allergic/Immunologic: no urticaria, no angioedema. PAST MEDICAL HISTORY:coronary artery disease, A. fib, COPD, hypertension, CHF, depression PAST SURGICAL HISTORY: cyst removed from breast SOCIAL HISTORY: Denies alcohol, drugs, smoke 10 cigarettes a day FAMILY HISTORY: Hypertension Medications and Allergies Allergies Allergy/AdvReac Type Severity Reaction Status Date / Time No Known Allergies Allergy Verified 10/19/18 14:21 Home Medications Medication Instructions Recorded Confirmed Last Taken Type Citalopram [Celexa] 20 mg PO QDAY #30 tablet 10/25/18 01/18/19 01/11/19 Rx Furosemide [Lasix TAB] 20 mg PO QDAY #10 tablet 10/25/18 01/18/19 01/11/19 Rx Rosuvastatin Calcium [Crestor] 20 mg PO DAILY #30 tablet 10/25/18 01/18/19 01/11/19 Rx Apixaban [Eliquis] 5 mg PO HS 01/18/19 01/18/19 01/11/19 History Carvedilol [Coreg] 6.25 mg PO DAILY 01/18/19 01/18/19 01/11/19 History Lisinopril [Zestril TAB] 10 mg PO DAILY 01/18/19 01/18/19 01/11/19 History Spironolactone [Aldactone] 25 mg PO DAILY 01/18/19 01/18/19 01/11/19 History Active Meds: Active Medications Acetaminophen (Tylenol) 650 mg PO Q4H PRN PRN Reason: Pain MILD(1-3)/Fever >100.5/VAZQUEZ Diltiazem HCl (Cardizem/D5w 100mg/100ml) 100 mg in 100 mls @ 5 mls/hr IV TITR ANGÉLICA; Protocol Last Titration: 01/18/19 20:30 Dose: 15 mg/hr, 15 mls/hr Documented by: Ondansetron HCl (Zofran) 4 mg IV Q8H PRN PRN Reason: Nausea And Vomiting Sodium Chloride (Sodium Chloride Flush Syringe 10 Ml) 10 ml IV BID ANGÉLICA Sodium Chloride (Sodium Chloride Flush Syringe 10 Ml) 10 ml IV PRN PRN PRN Reason: LINE FLUSH Exam - Physical Exam Narrative exam: General Apperance: The patient lying in bed, breathing comfortable HEENT: Normocephalic, atraumatic. Pupils equally round and reactive to light, EOMI, no sclericterus or JVD or thyromegaly or nodule. , no carotid bruit, mucous membranes moist, no exudate or erythema Heart: S1-S2, irregular rhythm Lungs: Clear to auscultation bilaterally, breathing comfortable Abdomen: Positive bowel sounds, soft, nontender, nondistended, no organomegaly Extremities: No edema cyanosis clubbing Skin: no rash, nodule, warm and dry Neuro: cranial nerves 2-12 intact, speech is fluent, motor/sensory intact - Constitutional Vitals: Temp Pulse Resp BP Pulse Ox 99.2 F 104 H 28 H 98/67 93 01/18/19 19:00 01/18/19 21:00 01/18/19 21:00 01/18/19 21:00 01/18/19 20:45 Results - Labs CBC & Chem 7: 01/18/19 Unknown 01/18/19 Unknown Labs: Abnormal lab results 01/18/19 01/18/19 01/18/19 Range/Units Unknown Unknown Unknown MCH 33 H (28-32) pg MCHC 35 H (30-34) % Plt Count 107 L (140-440) K/mm3 [place] % (Auto) 9.9 H (0.0-7.3) % Lymph # 1.1 L (1.2-5.4) K/mm3 Carbon Dioxide 18 L (22-30) mmol/L BUN 24 H (7-17) mg/dL Creatinine 1.3 H (0.7-1.2) mg/dL Glucose 129 H (65-100) mg/dL AST 83 H (5-40) units/L ALT 60 H (7-56) units/L NT-Pro-B Natriuret Pep (0-900) pg/mL TSH 5.450 H (0.270-4.200) mlU/mL 01/18/19 Range/Units Unknown MCH (28-32) pg MCHC (30-34) % Plt Count (140-440) K/mm3 [place] % (Auto) (0.0-7.3) % Lymph # (1.2-5.4) K/mm3 Carbon Dioxide (22-30) mmol/L BUN (7-17) mg/dL Creatinine (0.7-1.2) mg/dL Glucose (65-100) mg/dL AST (5-40) units/L ALT (7-56) units/L NT-Pro-B Natriuret Pep 37497 H (0-900) pg/mL TSH (0.270-4.200) mlU/mL Assessment and Plan Assessment A. fib with RVR COPD CHF, stable Coronary artery disease Hypertension Chronic renal insufficiency Depression Plan Admit medicine Continue Cardizem drip Check cardiac enzymes, recent echo done in October Elevated TSH, check t4 levels Consult cardiology, critical care continue appropriate outpatient medications DVT prophylaxis with eliquis
[2019-01-18 22:04] LABS: Creatine Kinase MB 2.7 ng/mL (0.0-4.0)
[2019-01-18] MEDS: SODIUM CHLORIDE FLUSH SYRINGE 10 ML IV SCH (22:05)
[2019-01-19] MEDS: CARDIZEM/D5W 100MG/100ML 100 MG/100 ML BAG IV SCH (00:47)
[2019-01-19 04:17] LABS: Basophils % (Auto) 0.3 % (0.0-1.8); Eosinophils % (Auto) 0.1 % (0.0-4.3); Hematocrit 37.2 % (30.3-42.9); Hemoglobin 12.9 gm/dl (10.1-14.3); Lymphocytes # (Auto) 1.5 K/mm3 (1.2-5.4); Lymphocytes % (Auto) 30.9 % (13.4-35.0); Mean Corpuscular HGB Conc 35 % (30-34); Mean Corpuscular Volume 94 fl (79-97); Monocytes # (Auto) 0.6 K/mm3 (0.0-0.8); Monocytes % (Auto) 11.7 % (0.0-7.3); Platelet Count 96 K/mm3 (140-440); Red Blood Count 3.98 M/mm3 (3.65-5.03); Red Cell Distribution Width 13.7 % (13.2-15.2)
[2019-01-19 04:22] LABS: Calcium 8.8 mg/dL (8.4-10.2)
[2019-01-19 04:37] LABS: Creatine Kinase MB 3.2 ng/mL (0.0-4.0)
[2019-01-19] MEDS ORDERED: NACL 0.9% 500 ML 500 ML IV ONE (07:06)
[2019-01-19] MEDS ORDERED: NACL 0.9% 500 ML 500 ML ONE (07:12)
[2019-01-19] MEDS ORDERED: NON-FORMULARY (Rosuvastatin Calcium [Crestor] 20 MG) PO SCH (10:00)
[2019-01-19] MEDS: SODIUM CHLORIDE FLUSH SYRINGE 10 ML IV SCH (10:10)
[2019-01-19] MEDS ORDERED: celeXA ONE (12:11)
[2019-01-19] MEDS ORDERED: LASIX ONE (12:11)
[2019-01-19] MEDS: LASIX PO SCH (12:14)
[2019-01-19] MEDS: celeXA PO SCH (12:14)
--- NOTE | 2019-01-19 14:17 | Consultation ---
History of Present Illness Consult date: 01/19/19 Requesting physician: LUIS RICHARDSON Reason for consult: other (Atrial Fibrillation with RVR) History of present illness: PULMONARY CONSULT NOTE (Full dictation # [id number]) Please see dictated notes for full details Medications and Allergies Allergies Allergy/AdvReac Type Severity Reaction Status Date / Time No Known Allergies Allergy Verified 10/19/18 14:21 Home Medications Medication Instructions Recorded Confirmed Last Taken Type Citalopram [Celexa] 20 mg PO QDAY #30 tablet 10/25/18 01/18/19 01/11/19 Rx Furosemide [Lasix TAB] 20 mg PO QDAY #10 tablet 10/25/18 01/18/19 01/11/19 Rx Rosuvastatin Calcium [Crestor] 20 mg PO DAILY #30 tablet 10/25/18 01/18/19 01/11/19 Rx Apixaban [Eliquis] 5 mg PO HS 01/18/19 01/18/19 01/11/19 History Carvedilol [Coreg] 6.25 mg PO DAILY 01/18/19 01/18/19 01/11/19 History Lisinopril [Zestril TAB] 10 mg PO DAILY 01/18/19 01/18/19 01/11/19 History Spironolactone [Aldactone] 25 mg PO DAILY 01/18/19 01/18/19 01/11/19 History Active Meds: Active Medications Acetaminophen (Tylenol) 650 mg PO Q4H PRN PRN Reason: Pain MILD(1-3)/Fever >100.5/VAZQUEZ Apixaban (Eliquis) 5 mg PO HS [facility]; Protocol Atorvastatin Calcium (Lipitor) 40 mg PO QHS ANGÉLICA Citalopram Hydrobromide (Celexa) 20 mg PO QDAY [facility] Last Admin: 01/19/19 12:14 Dose: 20 mg Documented by: Furosemide (Lasix) 20 mg PO QDAY ANGÉLICA Last Admin: 01/19/19 12:14 Dose: 20 mg Documented by: Ondansetron HCl (Zofran) 4 mg IV Q8H PRN PRN Reason: Nausea And Vomiting Sodium Chloride (Sodium Chloride Flush Syringe 10 Ml) 10 ml IV BID ANGÉLICA Last Admin: 01/19/19 10:10 Dose: 10 ml Documented by: Sodium Chloride (Sodium Chloride Flush Syringe 10 Ml) 10 ml IV PRN PRN PRN Reason: LINE FLUSH Physical Examination Vital signs: Vital Signs Pulse Resp BP Pulse Ox 56 L 19 146/92 97 01/18/19 16:19 01/18/19 16:19 01/18/19 16:19 01/18/19 16:19 Results - Laboratory Findings CBC and BMP: 01/19/19 03:41 01/19/19 03:41 Abnormal lab findings: Abnormal Labs 01/18/19 01/18/19 01/18/19 Unknown Unknown Unknown MCH 33 H MCHC 35 H Plt Count 107 L [place] % (Auto) 9.9 H Lymph # 1.1 L Carbon Dioxide 18 L BUN 24 H Creatinine 1.3 H Glucose 129 H AST 83 H ALT 60 H NT-Pro-B Natriuret Pep TSH 5.450 H 01/18/19 01/19/19 01/19/19 Unknown 03:41 03:41 MCH MCHC 35 H Plt Count 96 L [place] % (Auto) 11.7 H Lymph # Carbon Dioxide 20 L BUN 24 H Creatinine Glucose AST ALT NT-Pro-B Natriuret Pep 95459 H TSH
--- NOTE | 2019-01-19 14:48 | Consultation ---
History of Present Illness Consult date: 01/19/19 Requesting physician: LUIS RICHARDSON Consult reason: atrial fibrillation History of present illness: The pt is a 73 YO female with a past medical history of chronic atrial fibrillation, anticoagulated on Eliquis, HFrEF, NICMP, HTN, LBBB, CVA, COPD, tobacco use. She has been seen by our practice on prior hospitalizations but has admittedly not been compliant with OP follow up. She only regularly sees her PCP, Dr. Salgado. She presented with c/o palpitations and SOB since yesterday morning. She states that she was having some dizziness and low BPs and thus her home medications were discontinued a couple of weeks ago by her PCP. The only medication she has been taking is Eliquis. Following arrival to ED, pt found to be in AFib RVR and was initiated on cardizem gtt. On evaluation, she is in AFib with HR 100s, cardizem gtt weaned off, BPs currently intermittently hypotensive. Pt denies any current complaints. She denies any occurrence of chest pain, n/v, diaphoresis or syncope. LHC done 07/2017 showed mildly dilated LV, EF 40-45%, minimal coronary irregularities. Echo done 01/2018 showed EF 20-25%, mod LVH, LA mod to severely dilated, mild to mod MR, mild to mod TR. Past History Past Medical History: atrial fib, heart failure, hypertension, stroke Social history: smoking Medications and Allergies Allergies Allergy/AdvReac Type Severity Reaction Status Date / Time No Known Allergies Allergy Verified 10/19/18 14:21 Home Medications Medication Instructions Recorded Confirmed Last Taken Type Citalopram [Celexa] 20 mg PO QDAY #30 tablet 10/25/18 01/18/19 01/11/19 Rx Furosemide [Lasix TAB] 20 mg PO QDAY #10 tablet 10/25/18 01/18/19 01/11/19 Rx Rosuvastatin Calcium [Crestor] 20 mg PO DAILY #30 tablet 10/25/18 01/18/19 01/11/19 Rx Apixaban [Eliquis] 5 mg PO HS 01/18/19 01/18/19 01/11/19 History Carvedilol [Coreg] 6.25 mg PO DAILY 01/18/19 01/18/19 01/11/19 History Lisinopril [Zestril TAB] 10 mg PO DAILY 01/18/19 01/18/19 01/11/19 History Spironolactone [Aldactone] 25 mg PO DAILY 01/18/19 01/18/19 01/11/19 History Active Meds: Active Medications Acetaminophen (Tylenol) 650 mg PO Q4H PRN PRN Reason: Pain MILD(1-3)/Fever >100.5/VAZQUEZ Apixaban (Eliquis) 5 mg PO HS [facility]; Protocol Atorvastatin Calcium (Lipitor) 40 mg PO QHS [facility] Citalopram Hydrobromide (Celexa) 20 mg PO QDAY [facility] Last Admin: 01/19/19 12:14 Dose: 20 mg Documented by: Furosemide (Lasix) 20 mg PO QDAY [facility] Last Admin: 01/19/19 12:14 Dose: 20 mg Documented by: Ondansetron HCl (Zofran) 4 mg IV Q8H PRN PRN Reason: Nausea And Vomiting Sodium Chloride (Sodium Chloride Flush Syringe 10 Ml) 10 ml IV BID [facility] Last Admin: 01/19/19 10:10 Dose: 10 ml Documented by: Sodium Chloride (Sodium Chloride Flush Syringe 10 Ml) 10 ml IV PRN PRN PRN Reason: LINE FLUSH Review of Systems Constitutional: no weight loss, no weight gain, no fever, no chills, no sweats Ears, nose, mouth and throat: no ear pain, no nose pain, no sinus pressure, no sinus pain Cardiovascular: palpitations, lightheadedness, shortness of breath, dyspnea on exertion, no chest pain, no orthopnea, no rapid/irregular heart beat, no edema, no syncope, no high blood pressure, no leg edema Respiratory: shortness of breath, dyspnea on exertion, no cough, no congestion, no wheezing, no pain on inspiration Gastrointestinal: no abdominal pain, no nausea, no vomiting, no diarrhea, no constipation, no change in bowel habits Genitourinary Female: no pelvic pain, no flank pain, no dysuria, no urinary frequency, no urgency Musculoskeletal: no neck stiffness, no neck pain, no shooting arm pain, no arm numbness/tingling, no low back pain, no shooting leg pain Integumentary: no rash, no pruritis, no redness, no sores, no wounds Neurological: no head injury, no paralysis, no weakness, no parathesias, no numbness, no tingling, no seizures, no syncope Psychiatric: no anxiety Endocrine: no cold intolerance, no heat intolerance Hematologic/Lymphatic: no easy bruising, no easy bleeding Allergic/Immunologic: no urticaria, no wheezing Physical Examination Vital Signs Pulse Resp BP Pulse Ox 56 L 19 146/92 97 01/18/19 16:19 01/18/19 16:19 01/18/19 16:19 01/18/19 16:19 General appearance: no acute distress HEENT: Positive: PERRL, Normocephaly, Mucus Membranes Moist Neck: Positive: neck supple, trachea midline Cardiac: Positive: irregularly irregular, S1/S2, Tachycardia Lungs: Positive: Decreased Breath Sounds Neuro: Positive: Grossly Intact Abdomen: Negative: Tender Skin: Negative: Rash, Wound Musculoskeletal: No Pain Extremities: Absent: edema Results 01/19/19 03:41 01/19/19 03:41 Cardiac Enzymes 01/18/19 01/18/19 01/19/19 Range/Units 21:32 Unknown 03:41 AST 83 H (5-40) units/L CK-MB (CK-2) 2.7 3.2 (0.0-4.0) ng/mL CBC 01/18/19 01/19/19 Range/Units Unknown 03:41 WBC 5.0 4.9 (4.5-11.0) K/mm3 RBC 3.96 3.98 (3.65-5.03) M/mm3 Hgb 13.1 12.9 (10.1-14.3) gm/dl Hct 37.2 37.2 (30.3-42.9) % Plt Count 107 L 96 L (140-440) K/mm3 Lymph # 1.1 L 1.5 (1.2-5.4) K/mm3 [place] # 0.5 0.6 (0.0-0.8) K/mm3 Eos # 0.0 0.0 (0.0-0.4) K/mm3 Baso # 0.1 0.0 (0.0-0.1) K/mm3 Comprehensive Metabolic Panel 01/18/19 01/19/19 Range/Units Unknown 03:41 Sodium 138 138 (137-145) mmol/L Potassium 4.6 3.8 (3.6-5.0) mmol/L Chloride 102.7 99.5 (98-107) mmol/L Carbon Dioxide 18 L 20 L (22-30) mmol/L BUN 24 H 24 H (7-17) mg/dL Creatinine 1.3 H 1.2 (0.7-1.2) mg/dL Glucose 129 H 100 (65-100) mg/dL Calcium 9.3 8.8 (8.4-10.2) mg/dL AST 83 H (5-40) units/L ALT 60 H (7-56) units/L Alkaline Phosphatase 115 (35-129) units/L Total Protein 6.9 (6.3-8.2) g/dL Albumin 4.0 (3.9-5) g/dL - Imaging and Cardiology Echo: report reviewed (01/2018 showed EF 20-25%, mod LVH, LA mod to severely dilated, mild to mod MR, mild to mod TR. ) Cardiac cath: report reviewed (07/2017 showed mildly dilated LV, EF 40-45%, minimal coronary irregularities. ) EKG: report reviewed, image reviewed EKG interpretations - Telemetry EKG Rhythm: Atrial Fibrillation - EKG Supraventricular dysrhythmia: atrial fibrillation Assessment and Plan Optimize HR - initiate PO amio in setting of hypotension and f/u LFTs in AM. Cont Eliquis. TSH elevated - further [place]/management per primary. F/u echo. Can consider resuming home coreg (6.25mg BID) and/or lisinopril (10mg daily), aldactone (25mg daily) if/when BPs permit. The patient has been seen in conjunction with Dr. Nguyen who agrees with the assessment and plan of care. - Patient Problems (1) Atrial fibrillation with RVR Current Visit: Yes Status: Acute (2) Hypotension Current Visit: Yes Status: Acute (3) Chronic HFrEF (heart failure with reduced ejection fraction) Current Visit: Yes Status: Chronic (4) Nonischemic dilated cardiomyopathy Current Visit: Yes Status: Chronic (5) COPD (chronic obstructive pulmonary disease) Current Visit: Yes Status: Acute (6) History of CVA (cerebrovascular accident) Current Visit: Yes Status: Chronic (7) Tobacco use Current Visit: Yes Status: Chronic
--- NOTE | 2019-01-19 15:51 | Progress Note ---
Assessment and Plan Atrial fibrillation, and acute on chronic Related hypotension CHFrEF 20-25%, compensated History of CVA History of COPD without any exacerbation Tobacco abuse - Downgraded to telemetry - Monitor clinically, follow cardiology recommendation - Continue eliquis, started on amiodarone, monitor vitals, cardiac diet - Continue to monitor overnight, if BP stable possible d/c tomorrow Brief History: The pt is a 73 YO female with a past medical history of chronic atrial fibrillation, anticoagulated on Eliquis, HFrEF, NICMP, HTN, LBBB, CVA, COPD, tobacco use presented with c/o palpitations and SOB since yesterday morning. She states that she was having some dizziness and low BPs and thus her home medications were discontinued a couple of weeks ago by her PCP. The only medication she has been taking is Eliquis. Following arrival to ED, pt found to be in AFib RVR and was initiated on cardizem gtt. On evaluation, she is in AFib with HR 100s, cardizem gtt weaned off, BPs currently intermittently hypotensive. She was downgraded to telemetry. Previous workup LHC done 07/2017 showed mildly dilated LV, EF 40-45%, minimal coronary irregularities. Echo done 01/2018 showed EF 20-25%, mod LVH, LA mod to severely dilated, mild to mod MR, mild to mod TR. Radiological data: Chest x-ray no infiltrates Hospitalist Physical exam: GENERAL: well-developed elderly female lying on bed appeared to be in no discomfort. HEENT: Normocephalic. Atraumatic. No conjunctival congestion or icterus. Patient has moist mucous membranes. NECK: Supple. Trachea midline. CHEST/LUNGS: Clear to auscultated bilaterally, breathing nonlabored. No wheezes crackles or rhonchi. HEART/CARDIOVASCULAR: Irregular in rate and rhythm. S1 and S2 positive. ABDOMEN: Abdomen is soft, nontender. Patient has normal bowel sounds. SKIN: There is no rash. Warm and dry. NEURO: No focal motor deficit. Follows command. MUSCULOSKELETAL: No joint effusion or tenderness. EXTRIMITY: No edema, no cyanosis or clubbing. PSYCH: Cooperative. Subjective Date of service: 01/19/19 Interval history: Patient seen and examined. Medical records and medication list reviewed. No acute event overnight noted by the RN. Patient denies any chest pain or difficulty breathing. Patient is tolerating diet. Discussed plan of care at bedside with patient. Objective - Constitutional Vitals: Vital Signs - 12hr 01/19/19 01/19/19 01/19/19 04:00 04:30 04:45 Temperature Pulse Rate 92 H 93 H 89 Pulse Rate [ Apical] Pulse Rate [ Left Radial] Pulse Rate [ Right Radial] Respiratory 30 H 28 H Rate Blood Pressure 94/61 101/63 Blood Pressure [Left] O2 Sat by Pulse 94 93 94 Oximetry 01/19/19 01/19/19 01/19/19 05:15 05:30 06:00 Temperature Pulse Rate 94 H 89 91 H Pulse Rate [ Apical] Pulse Rate [ Left Radial] Pulse Rate [ Right Radial] Respiratory 26 H 24 23 Rate Blood Pressure 95/51 102/67 Blood Pressure [Left] O2 Sat by Pulse 96 95 94 Oximetry 01/19/19 01/19/19 01/19/19 06:15 06:30 07:31 Temperature Pulse Rate 85 93 H 92 H Pulse Rate [ Apical] Pulse Rate [ Left Radial] Pulse Rate [ Right Radial] Respiratory 24 21 16 Rate Blood Pressure 102/67 97/67 Blood Pressure 94/57 [Left] O2 Sat by Pulse 94 95 96 Oximetry 01/19/19 01/19/19 10:47 13:00 Temperature 98.2 F Pulse Rate 104 H 112 H Pulse Rate [ 112 H Apical] Pulse Rate [ 112 H Left Radial] Pulse Rate [ 112 H Right Radial] Respiratory 16 24 Rate Blood Pressure Blood Pressure 99/87 82/51 [Left] O2 Sat by Pulse 95 97 Oximetry - Labs CBC & Chem 7: 01/19/19 03:41 01/19/19 03:41 Labs: Abnormal lab results 01/18/19 01/18/19 01/18/19 Range/Units Unknown Unknown Unknown MCH 33 H (28-32) pg MCHC 35 H (30-34) % Plt Count 107 L (140-440) K/mm3 [place] % (Auto) 9.9 H (0.0-7.3) % Lymph # 1.1 L (1.2-5.4) K/mm3 Carbon Dioxide 18 L (22-30) mmol/L BUN 24 H (7-17) mg/dL Creatinine 1.3 H (0.7-1.2) mg/dL Glucose 129 H (65-100) mg/dL AST 83 H (5-40) units/L ALT 60 H (7-56) units/L NT-Pro-B Natriuret Pep (0-900) pg/mL TSH 5.450 H (0.270-4.200) mlU/mL 01/18/19 01/19/19 01/19/19 Range/Units Unknown 03:41 03:41 MCH (28-32) pg MCHC 35 H (30-34) % Plt Count 96 L (140-440) K/mm3 [place] % (Auto) 11.7 H (0.0-7.3) % Lymph # (1.2-5.4) K/mm3 Carbon Dioxide 20 L (22-30) mmol/L BUN 24 H (7-17) mg/dL Creatinine (0.7-1.2) mg/dL Glucose (65-100) mg/dL AST (5-40) units/L ALT (7-56) units/L NT-Pro-B Natriuret Pep 53140 H (0-900) pg/mL TSH (0.270-4.200) mlU/mL
[2019-01-19] MEDS: PULMICORT IH SCH (21:37)
[2019-01-19] MEDS: BROVANA NEBU IH SCH (21:41)
[2019-01-19] MEDS ORDERED: CORDARONE PO SCH (22:00)
[2019-01-19] MEDS ORDERED: ELIQUIS PO SCH (22:00)
[2019-01-19] MEDS: PEPCID PO SCH (22:11)
[2019-01-20] MEDS: SODIUM CHLORIDE FLUSH SYRINGE 10 ML IV SCH ×3 (00:36→21:17)
--- NOTE | 2019-01-20 04:44 | Consultation ---
PULMONARY CONSULT NOTE CONSULTING PHYSICIAN: Dr. Thibodeaux. REASON FOR CONSULTATION: Critical care management, atrial fibrillation with rapid ventricular response, need for ICU management. CHIEF COMPLAINT AND HISTORY OF PRESENT ILLNESS: As follows: The patient is a 73-year-old -[place] female with past medical history significant for diagnosis of CHF and apparently atrial fibrillation, although she says she did not know about it, came into the Emergency Room complaining of just not feeling right. She was complaining of generalized malaise, dyspnea on exertion, symptoms began on the day of presentation. She admitted to some palpitations. She denied nausea, vomiting, or overt aspiration. Denied any sick contacts. She stated that she had been in atrial fibrillation in the past, but that was fixed and that she was taken off her medications at that time. It seems like she was taken off Lasix, Aldactone, Coreg, and lisinopril secondary to a bout of hypotension. Anyway in the Emergency Room, she was found to be in atrial fibrillation with rapid ventricular response. Cardiology was consulted. She was started on a Cardizem drip, ICU admission was requested. When I stopped by to see her, she was doing better. She was off the Cardizem drip. She denied any palpitations. She denied any persistent chest pain. She was on supplemental oxygen at 2 liters nasal cannula, which was new. This really is as much of the history of presentation as I have. When asked about tobacco use/abuse history, she gave me a less than [id number] smoking history of more than 30 years ago. PAST MEDICAL HISTORY: Again, significant for diagnosis of coronary artery disease, atrial fibrillation, chronic obstructive lung disease, hypertension, CHF, depression. PAST SURGICAL HISTORY: She has had a cyst removed from her breast. MEDICATIONS: She was on at the time I stopped by to see were reviewed. Pertinent medications included the following: Tylenol 650 mg p.o. q. 4 hours p.r.n. mild pain or fevers, amiodarone 200 mg p.o. b.i.d., Eliquis 5 mg p.o. at bedtime, baby aspirin 81 mg p.o. daily, Lipitor 40 mg p.o. at bedtime, Celexa 20 mg p.o. daily, Lasix 20 mg p.o. daily, Zofran 4 mg IV q. 8 hours p.r.n. nausea and vomiting. ALLERGIES: No known drug allergies. DIET: Thin lady. Denies acute weight loss or gain in the preceding few weeks to months. FAMILY AND SOCIAL HISTORY: Lives in the community, good family support. Denies alcohol, tobacco, illicit drug use or abuse, but in the ER, she admitted to still smoking up to 10 cigarettes a day. There is a family history of hypertension. REVIEW OF SYSTEMS: No loss of consciousness. No new onset seizures. No new onset focal weakness. Denied gross hematochezia or melena. Denies gross hematuria or dysuria. No bleeding diathesis. Denied any ecchymosis. Denied any new rashes on her body. She denies any nasal congestion, nasal pain. No sinus pressure, no back pain. She denies heat or cold intolerance. No polydipsia, no polyuria. No paresthesias. Complete 13-system review of systems obtained. Pertinent positives and/or negatives are as in body of history above, otherwise they are noncontributory. PHYSICAL EXAMINATION: VITAL SIGNS: At presentation, she was afebrile, temperature 97.8 degrees Fahrenheit, pulse 165, respiratory rate of 25, blood pressure 138/82, O2 sats were 97%, inspired oxygen concentration at that time was not recorded. When I stopped by to see her, O2 sats were 96% that was on 2 liters nasal cannula. GENERAL: She is a thin, elderly looking -[place] female, normocephalic, atraumatic, talking to me in mostly full sentences with mildly increased respiratory effort at rest. HEAD, EYES, EARS, NOSE, AND THROAT: She is anicteric. No conjunctival erythema. Oropharynx is moist. Mallampati #2 oropharynx. No gross jugular venous distention. No thyromegaly. Grossly, there were no palpable lymph nodes in the supraclavicular or submandibular lymph node chains. LUNGS: Auscultation of both lung jimenez revealed slightly diminished bilateral breath sounds with a prolonged expiratory phase. She also had some bilateral bibasilar inspiratory rales. No active wheezing. HEART: Heart sounds 1 and 2 are heard. They were irregular, irregular at the time I evaluated her, but no overt tachycardia. No rubs or murmurs. ABDOMEN: Flat, soft, bowel sounds are positive, nontender. No palpable hepatosplenomegaly. EXTREMITIES: Without overt digital clubbing or cyanosis. No pedal edema. Pedal pulses are strong bilaterally. NEUROLOGIC: Pupils are equal, round, about 4 mm, reactive to light. Extraocular muscle movements are intact. She moves all 4 extremities spontaneously. The skin is of normal turgor without overt cellulitis or rash. Her mood is normal. Her affect is appropriate. LABORATORY DATA: From my review are as follows: Admission white cell count 5000 with a hemoglobin of 13.1, hematocrit of 37.2, platelet count of 107. Serum sodium was 138, potassium 4.6, chloride 103, bicarbonate 18, BUN 24, creatinine 1.3, glucose was 129. AST elevated at 83, ALT 60. Troponin within normal limits. BNP significantly elevated at 51,879. TSH was elevated at 5.45. No microbiology studies for my review. A chest x-ray was done at presentation. I have reviewed the chest x-ray. I have also reviewed the radiologist's interpretation. Essentially, she has gross cardiomegaly, mildly increased interstitial markings, no overt effusions. She has a flattening of the right hemidiaphragm consistent with hyperinflation. No gross bony fractures. ASSESSMENT: 1. Acute hypoxemic respiratory failure. 2. Atrial fibrillation with a rapid ventricular response, paroxysmal. 3. Acute chronic obstructive pulmonary disease exacerbation. 4. Congestive heart failure. 5. Coronary artery disease. 6. Hypertension. 7. History of depression. PLAN: We will continue supplemental oxygen, wean to keep O2 sats greater than or equal to about 90%. I will hold on systemic steroids at this point; however, just based on her x-ray picture and clinically I think she will benefit from inhaled corticosteroids and long acting bronchodilators. I will put her on p.r.n. short-acting bronchodilators. Tobacco abstinence has been counseled strongly. She is fully anticoagulated. I will be putting her on GI prophylaxis, especially with her fully anticoagulated. Flu and pneumonia vaccination will be addressed per protocol. I do feel the CHF is the likely culprit here and I will hold on empiric antibiotics at this time. Thank you very much for the consult. We will follow along. We will make further recommendations as picture progresses/becomes clearer. JOB# [id number] AJM/NTS
[2019-01-20 06:26] LABS: Albumin 3.2 g/dL (3.9-5); Calcium 8.5 mg/dL (8.4-10.2)
--- NOTE | 2019-01-20 07:05 | Progress Note ---
Assessment and Plan Atrial fibrillation, and acute on chronic Related hypotension CHFrEF 20-25%, compensated History of CVA History of COPD without any exacerbation Tobacco use disorder/Nicotine dependence Subjective Date of service: 01/20/19 Interval history: Patient is seen today for: Seen and examined at bedside; 24hour events reviewed; nursing and respiratory care staff consulted; no adverse overnight events reported to me; Objective - Exam Narrative Exam: General Apperance: The patient lying in bed, breathing comfortably HEENT: Normocephalic, atraumatic. Pupils equally round and reactive to light, EOMI, no JVD or thyromegaly or nodule. No carotid bruit, mucous membranes moist, no exudate or erythema Heart: S1-S2, irregular rhythm Lungs: Clear to auscultation bilaterally, breathing comfortable Abdomen: Positive bowel sounds, soft, non tender, non distended, no organomegaly Extremities: No edema cyanosis clubbing Skin: no rash, nodule, warm and dry Neuro: cranial nerves 2-12 intact, speech is fluent, motor/sensory intact Vital Signs - 12hr 01/19/19 01/19/19 01/19/19 20:28 20:30 21:41 Temperature 98.3 F Pulse Rate 89 Pulse Rate [ 80 Anterior Bilateral] Respiratory 20 Rate Respiratory 20 Rate [Anterior Bilateral] Blood Pressure 116/72 O2 Sat by Pulse 97 Oximetry 01/19/19 01/20/19 01/20/19 21:50 00:02 00:03 Temperature 98.1 F Pulse Rate 122 H Pulse Rate [ 82 Anterior Bilateral] Respiratory 20 Rate Respiratory 20 Rate [Anterior Bilateral] Blood Pressure 128/77 O2 Sat by Pulse 96 Oximetry 01/20/19 01/20/19 05:03 05:04 Temperature 98.4 F Pulse Rate 114 H Pulse Rate [ Anterior Bilateral] Respiratory 18 Rate Respiratory Rate [Anterior Bilateral] Blood Pressure 117/69 O2 Sat by Pulse 96 Oximetry CBC and BMP: 01/19/19 03:41 01/20/19 05:32 Abnormal lab findings: Abnormal Labs 01/18/19 01/18/19 01/18/19 Unknown Unknown Unknown MCH 33 H MCHC 35 H Plt Count 107 L [place] % (Auto) 9.9 H Lymph # 1.1 L Potassium Chloride Carbon Dioxide 18 L BUN 24 H Creatinine 1.3 H Glucose 129 H AST 83 H ALT 60 H NT-Pro-B Natriuret Pep Total Protein Albumin TSH 5.450 H 01/18/19 01/19/19 01/19/19 Unknown 03:41 03:41 MCH MCHC 35 H Plt Count 96 L [place] % (Auto) 11.7 H Lymph # Potassium Chloride Carbon Dioxide 20 L BUN 24 H Creatinine Glucose AST ALT NT-Pro-B Natriuret Pep 80438 H Total Protein Albumin TSH 01/20/19 05:32 MCH MCHC Plt Count [place] % (Auto) Lymph # Potassium 3.5 L Chloride 109.0 H Carbon Dioxide BUN 25 H Creatinine Glucose AST ALT NT-Pro-B Natriuret Pep Total Protein 6.0 L Albumin 3.2 L TSH
[2019-01-20] MEDS: BROVANA NEBU IH SCH ×2 (07:52→20:21)
[2019-01-20] MEDS: PULMICORT IH SCH ×2 (07:53→20:21)
--- NOTE | 2019-01-20 09:21 | Progress Note ---
Assessment and Plan in view of gfr less than 60 and weight less than 60 kg will reduce elquis 2.5mg bid and afib is not controlled will start lopressor 25mg q6 and stop amio and start iv dig and cont lasix hold monica/arb secondary to low bp and cont to monitor and pt needs better compliance with meds. - Patient Problems (1) Acute respiratory failure Current Visit: Yes Status: Acute Qualifiers: Respiratory failure complication: hypoxia Qualified Code(s): J96.01 - Acute respiratory failure with hypoxia (2) Acute renal insufficiency Current Visit: Yes Status: Acute (3) Atrial fibrillation with RVR Current Visit: Yes Status: Acute (4) COPD (chronic obstructive pulmonary disease) Current Visit: Yes Status: Chronic (5) Chronic HFrEF (heart failure with reduced ejection fraction) Current Visit: Yes Status: Chronic (6) Dilated cardiomyopathy Current Visit: Yes Status: Chronic (7) History of CVA (cerebrovascular accident) Current Visit: Yes Status: Chronic (8) Nonischemic dilated cardiomyopathy Current Visit: Yes Status: Chronic (9) Tobacco use Current Visit: Yes Status: Chronic (10) Acute systolic CHF (congestive heart failure), NYHA class 4 Current Visit: Yes Status: Acute Subjective Date of service: 01/20/19 Principal diagnosis: chf and afib Interval history: pt sob has improved no palpations Objective Vital Signs Temp Pulse Pulse Pulse Pulse Pulse Resp 01/20/19 05:04 98.4 F 01/20/19 05:03 114 H 18 01/20/19 00:03 98.1 F 01/20/19 00:02 122 H 20 01/19/19 21:50 82 01/19/19 21:41 80 01/19/19 20:30 98.3 F 01/19/19 20:28 89 20 01/19/19 19:00 106 H 22 01/19/19 18:20 98.1 F 126 H 22 01/19/19 18:18 124 H 01/19/19 17:02 97.8 F 120 H 01/19/19 17:00 114 H 01/19/19 13:53 103 H 01/19/19 13:00 98.2 F 112 H 112 H 112 H 112 H 24 01/19/19 12:58 01/19/19 12:41 98 H 21 01/19/19 12:30 96 H 20 01/19/19 12:21 87 22 01/19/19 12:11 98 H 20 01/19/19 12:01 100 H 18 01/19/19 11:51 110 H 30 H 01/19/19 11:41 109 H 25 H 01/19/19 11:31 102 H 22 01/19/19 11:21 102 H 21 01/19/19 11:11 109 H 26 H 01/19/19 11:00 98 H 24 01/19/19 10:51 110 H 29 H 01/19/19 10:47 104 H 16 01/19/19 10:41 101 H 28 H 01/19/19 10:31 106 H 29 H 01/19/19 10:21 105 H 31 H 01/19/19 10:11 112 H 27 H 01/19/19 10:01 106 H 27 H 01/19/19 09:51 100 H 29 H 01/19/19 09:41 104 H 30 H 01/19/19 09:31 106 H 27 H 01/19/19 09:21 107 H 31 H Resp BP BP Pulse Ox 01/20/19 05:04 01/20/19 05:03 117/69 96 01/20/19 00:03 01/20/19 00:02 128/77 96 01/19/19 21:50 20 01/19/19 21:41 20 01/19/19 20:30 01/19/19 20:28 116/72 97 01/19/19 19:00 96 01/19/19 18:20 144/94 01/19/19 18:18 144/94 97 01/19/19 17:02 105/70 98 01/19/19 17:00 01/19/19 13:53 82/51 99 01/19/19 13:00 138/70 82/51 97 01/19/19 12:58 150/63 01/19/19 12:41 89/55 98 01/19/19 12:30 89/55 98 01/19/19 12:21 86/20 99 01/19/19 12:11 86/20 98 01/19/19 12:01 86/20 98 01/19/19 11:51 87/59 97 01/19/19 11:41 87/59 97 01/19/19 11:31 87/59 98 01/19/19 11:21 87/56 98 01/19/19 11:11 87/56 97 01/19/19 11:00 87/56 98 01/19/19 10:51 88/55 98 01/19/19 10:47 99/87 95 01/19/19 10:41 99/77 98 01/19/19 10:31 99/77 97 01/19/19 10:21 99/77 97 01/19/19 10:11 99/77 96 01/19/19 10:01 99/77 97 01/19/19 09:51 99/77 96 01/19/19 09:41 99/77 95 01/19/19 09:31 99/77 95 01/19/19 09:21 105/69 96 - Physical Examination HEENT: Positive: PERRL, Normocephaly, Mucus Membranes Moist Neck: Positive: neck supple, trachea midline Cardiac: Positive: Irregularly Regular, Tachycardia Lungs: Positive: Decreased Breath Sounds Neuro: Positive: Grossly Intact Abdomen: Negative: Tender Skin: Negative: Rash, Wound Musculoskeletal: No Pain Extremities: Absent: edema - Labs and Meds Cardiac Enzymes 01/20/19 Range/Units 05:32 AST 31 (5-40) units/L Comprehensive Metabolic Panel 01/20/19 Range/Units 05:32 Sodium 143 (137-145) mmol/L Potassium 3.5 L (3.6-5.0) mmol/L Chloride 109.0 H (98-107) mmol/L Carbon Dioxide 22 (22-30) mmol/L BUN 25 H (7-17) mg/dL Creatinine 1.1 (0.7-1.2) mg/dL Glucose 100 (65-100) mg/dL Calcium 8.5 (8.4-10.2) mg/dL AST 31 (5-40) units/L ALT 38 (7-56) units/L Alkaline Phosphatase 85 (35-129) units/L Total Protein 6.0 L (6.3-8.2) g/dL Albumin 3.2 L (3.9-5) g/dL - Imaging and Cardiology EKG: report reviewed, image reviewed Echo: report reviewed (01/2018 showed EF 20-25%, mod LVH, LA mod to severely dilated, mild to mod MR, mild to mod TR. ) Cardiac cath: report reviewed (07/2017 showed mildly dilated LV, EF 40-45%, minimal coronary irregularities. ) - Telemetry EKG Rhythm: Atrial Fibrillation (afib 110-130)
[2019-01-20] MEDS ORDERED: COREG PO SCH (10:00)
[2019-01-20] MEDS ORDERED: BABY ASPIRIN PO SCH (10:00)
[2019-01-20] MEDS ORDERED: ELIQUIS PO SCH (10:00)
[2019-01-20] MEDS: ELIQUIS PO SCH ×2 (10:41→21:17)
[2019-01-20] MEDS: celeXA PO SCH (10:42)
[2019-01-20] MEDS: PEPCID PO SCH ×2 (10:42→21:17)
[2019-01-20] MEDS: LASIX PO SCH (10:42)
[2019-01-20] MEDS: LOPRESSOR PO SCH ×3 (10:42→20:40)
[2019-01-20] MEDS: LANOXIN IV SCH ×2 (12:43→18:33)
--- NOTE | 2019-01-20 12:46 | Progress Note ---
Assessment and Plan Atrial fibrillation, and acute on chronic Related hypotension CHFrEF 20-25%, compensated History of CVA History of COPD without any exacerbation Tobacco abuse - monitor at telemetry, follow cardiology recommendation - Continue eliquis, reduced elquis 2.5mg bid and started lopressor 25mg q6 and iv dig and stop amiodarone - cont lasix, hold monica/arb secondary to low bp and cont to monitor - monitor vitals, cardiac diet - Continue to monitor overnight, if BP stable and HR better control then possible d/c tomorrow Brief History: The pt is a 73 YO female with a past medical history of chronic atrial fibrillation, anticoagulated on Eliquis, HFrEF, NICMP, HTN, LBBB, CVA, COPD, tobacco use presented with c/o palpitations and SOB since yesterday morning. She states that she was having some dizziness and low BPs and thus her home medications were discontinued a couple of weeks ago by her PCP. The only medication she has been taking is Eliquis. Following arrival to ED, pt found to be in AFib RVR and was initiated on cardizem gtt. On evaluation, she is in AFib with HR 100s, cardizem gtt weaned off, BPs currently intermittently hypotensive. She was downgraded to telemetry. Previous workup LHC done 07/2017 showed mildly dilated LV, EF 40-45%, minimal coronary irregularities. Echo done 01/2018 showed EF 20-25%, mod LVH, LA mod to severely dilated, mild to mod MR, mild to mod TR. Radiological data: Chest x-ray no infiltrates Hospitalist Physical exam: GENERAL: well-developed elderly female lying on bed appeared to be in no discomfort. HEENT: Normocephalic. Atraumatic. No conjunctival congestion or icterus. [place] ent has moist mucous membranes. NECK: Supple. Trachea midline. CHEST/LUNGS: Clear to auscultated bilaterally, breathing nonlabored. No wheezes crackles or rhonchi. HEART/CARDIOVASCULAR: Irregular in rate and rhythm. S1 and S2 positive. ABDOMEN: Abdomen is soft, nontender. Patient has normal bowel sounds. SKIN: There is no rash. Warm and dry. NEURO: No focal motor deficit. Follows command. MUSCULOSKELETAL: No joint effusion or tenderness. EXTRIMITY: No edema, no cyanosis or clubbing. PSYCH: Cooperative. Subjective Date of service: 01/20/19 Principal diagnosis: chf and afib Interval history: Patient seen and examined. Medical records and medication list reviewed. No acute event overnight noted by the RN. Patient denies any chest pain or difficulty breathing. Patient is tolerating diet. HR at 120s Discussed plan of care at bedside with patient. Objective - Constitutional Vitals: Vital Signs - 12hr 01/20/19 01/20/19 01/20/19 05:03 05:04 07:53 Temperature 98.4 F Pulse Rate 114 H Pulse Rate [ 109 H Anterior Bilateral] Respiratory 18 Rate Respiratory 20 Rate [Anterior Bilateral] Blood Pressure 117/69 Blood Pressure [Left] O2 Sat by Pulse 96 98 Oximetry 01/20/19 01/20/19 01/20/19 08:03 09:22 10:00 Temperature 98.1 F Pulse Rate 132 H 108 H Pulse Rate [ 114 H Anterior Bilateral] Respiratory 16 Rate Respiratory 20 Rate [Anterior Bilateral] Blood Pressure 130/89 Blood Pressure [Left] O2 Sat by Pulse 94 Oximetry 01/20/19 01/20/19 01/20/19 10:42 12:27 12:28 Temperature 98.2 F Pulse Rate 132 H 104 H Pulse Rate [ Anterior Bilateral] Respiratory Rate Respiratory Rate [Anterior Bilateral] Blood Pressure 130/89 127/85 Blood Pressure 127/85 [Left] O2 Sat by Pulse Oximetry 01/20/19 12:43 Temperature Pulse Rate 104 H Pulse Rate [ Anterior Bilateral] Respiratory Rate Respiratory Rate [Anterior Bilateral] Blood Pressure 127/85 Blood Pressure [Left] O2 Sat by Pulse Oximetry - Labs CBC & Chem 7: 01/19/19 03:41 01/20/19 05:32 Labs: Abnormal lab results 01/20/19 Range/Units 05:32 Potassium 3.5 L (3.6-5.0) mmol/L Chloride 109.0 H (98-107) mmol/L BUN 25 H (7-17) mg/dL Total Protein 6.0 L (6.3-8.2) g/dL Albumin 3.2 L (3.9-5) g/dL
[2019-01-21] MEDS: LANOXIN IV SCH ×2 (00:19→06:03)
[2019-01-21] MEDS: SODIUM CHLORIDE FLUSH SYRINGE 10 ML IV PRN ×2 (00:24→06:05)
[2019-01-21] MEDS: LOPRESSOR PO SCH ×2 (01:47→08:07)
[2019-01-21] MEDS: BROVANA NEBU IH SCH (08:23)
[2019-01-21 08:31] VITALS: BP 170/86
[2019-01-21] MEDS: PULMICORT IH SCH (08:41)
[2019-01-21] MEDS: PEPCID PO SCH (10:03)
[2019-01-21] MEDS: ELIQUIS PO SCH (10:03)
[2019-01-21] MEDS: celeXA PO SCH (10:03)
[2019-01-21] MEDS: LASIX PO SCH (10:04)
[2019-01-21] MEDS: SODIUM CHLORIDE FLUSH SYRINGE 10 ML IV SCH (10:04)
[2019-01-21 10:45] LABS: Basophils % (Auto) 0.3 % (0.0-1.8); Eosinophils % (Auto) 1.1 % (0.0-4.3); Hematocrit 39.3 % (30.3-42.9); Hemoglobin 13.1 gm/dl (10.1-14.3); Lymphocytes # (Auto) 0.7 K/mm3 (1.2-5.4); Lymphocytes % (Auto) 22.7 % (13.4-35.0); Mean Corpuscular HGB Conc 33 % (30-34); Mean Corpuscular Volume 96 fl (79-97); Monocytes # (Auto) 0.2 K/mm3 (0.0-0.8); Monocytes % (Auto) 6.8 % (0.0-7.3); Platelet Count 112 K/mm3 (140-440); Red Blood Count 4.09 M/mm3 (3.65-5.03); Red Cell Distribution Width 14.1 % (13.2-15.2)
[2019-01-21 10:50] LABS: Calcium 8.7 mg/dL (8.4-10.2)
--- NOTE | 2019-01-21 12:07 | Progress Note ---
Assessment and Plan Patient's heart rate has improved we'll make metoprolol 50 twice a day patient heart rate in the 60s and 70 patient had one episode of +2.3 second while sleeping will continue with low dose dig for tomorrow as patient has finished dig loading continue Lopressor 50 twice a for BP control low dose Lasix is on [place] was 2.5 mg twice a day in view of mild renal sufficiency will hold Chema and arb patient may be discharged this p.m. if stable - Patient Problems (1) Acute respiratory failure Current Visit: Yes Status: Acute Qualifiers: Respiratory failure complication: hypoxia Qualified Code(s): J96.01 - Acute respiratory failure with hypoxia (2) Acute renal insufficiency Current Visit: Yes Status: Acute (3) Atrial fibrillation with RVR Current Visit: Yes Status: Acute (4) COPD (chronic obstructive pulmonary disease) Current Visit: Yes Status: Chronic (5) Chronic HFrEF (heart failure with reduced ejection fraction) Current Visit: Yes Status: Chronic (6) Dilated cardiomyopathy Current Visit: Yes Status: Chronic (7) History of CVA (cerebrovascular accident) Current Visit: Yes Status: Chronic (8) Nonischemic dilated cardiomyopathy Current Visit: Yes Status: Chronic (9) Tobacco use Current Visit: Yes Status: Chronic (10) Acute systolic CHF (congestive heart failure), NYHA class 4 Current Visit: Yes Status: Acute Subjective Date of service: 01/21/19 Principal diagnosis: chf and afib Interval history: sob has improved and wants to go home Objective Vital Signs Temp Pulse Pulse Pulse Resp Resp BP 01/21/19 09:03 40 L 01/21/19 08:29 98.3 F 82 18 170/86 01/21/19 06:03 69 151/77 01/21/19 05:10 97.5 F L 01/21/19 05:08 72 18 151/77 01/21/19 04:30 66 01/21/19 01:47 79 147/79 01/21/19 01:44 147/79 01/21/19 00:19 87 106/51 01/21/19 00:07 75 01/20/19 23:26 97.6 F 01/20/19 23:25 98 H 18 106/51 01/20/19 20:40 77 147/82 01/20/19 20:33 82 20 01/20/19 20:24 01/20/19 20:22 97.9 F 83 20 01/20/19 20:20 95 H 18 147/82 01/20/19 19:35 82 01/20/19 18:33 88 145/88 01/20/19 17:47 98.2 F 88 18 145/88 01/20/19 12:43 104 H 127/85 01/20/19 12:28 98.2 F 104 H 01/20/19 12:27 127/85 BP Pulse Ox 01/21/19 09:03 01/21/19 08:29 100 01/21/19 06:03 01/21/19 05:10 01/21/19 05:08 97 01/21/19 04:30 01/21/19 01:47 01/21/19 01:44 01/21/19 00:19 01/21/19 00:07 01/20/19 23:26 01/20/19 23:25 95 01/20/19 20:40 01/20/19 20:33 01/20/19 20:24 99 01/20/19 20:22 01/20/19 20:20 98 01/20/19 19:35 01/20/19 18:33 01/20/19 17:47 99 01/20/19 12:43 01/20/19 12:28 127/85 01/20/19 12:27 - Physical Examination General: Appears Well HEENT: Positive: PERRL, Normocephaly, Mucus Membranes Moist Neck: Positive: neck supple, trachea midline Cardiac: Positive: Irregularly Regular Lungs: Positive: Decreased Breath Sounds Neuro: Positive: Grossly Intact Abdomen: Positive: Soft. Negative: Tender Skin: Negative: Rash, Wound Musculoskeletal: No Pain Extremities: Absent: edema - Labs and Meds CBC 01/21/19 Range/Units 09:14 WBC 3.0 L (4.5-11.0) K/mm3 RBC 4.09 (3.65-5.03) M/mm3 Hgb 13.1 (10.1-14.3) gm/dl Hct 39.3 (30.3-42.9) % Plt Count 112 L (140-440) K/mm3 Lymph # 0.7 L (1.2-5.4) K/mm3 [place] # 0.2 (0.0-0.8) K/mm3 Eos # 0.0 (0.0-0.4) K/mm3 Baso # 0.0 (0.0-0.1) K/mm3 Comprehensive Metabolic Panel 01/21/19 Range/Units 09:14 Sodium 143 (137-145) mmol/L Potassium 3.6 (3.6-5.0) mmol/L Chloride 104.8 (98-107) mmol/L Carbon Dioxide 25 (22-30) mmol/L BUN 24 H (7-17) mg/dL Creatinine 1.1 (0.7-1.2) mg/dL Glucose 82 (65-100) mg/dL Calcium 8.7 (8.4-10.2) mg/dL - Imaging and Cardiology EKG: report reviewed, image reviewed Echo: report reviewed (01/2018 showed EF 20-25%, mod LVH, LA mod to severely dilated, mild to mod MR, mild to mod TR. ) Cardiac cath: report reviewed (07/2017 showed mildly dilated LV, EF 40-45%, minimal coronary irregularities. ) - Telemetry EKG Rhythm: Atrial Fibrillation (in 60-70 one pause of 2.3 second while sleeping)
[2019-01-21] MEDS ORDERED: LOPRESSOR PO SCH (13:00)
--- NOTE | 2019-01-21 15:57 | Discharge Summary ---
Providers - Providers Date of Admission: 01/18/19 21:21 Date of discharge: 01/21/19 Attending physician: RALPH MURPHY 01/18/19 21:21 Consult to Physician [CONS] Routine Comment: Consulting Provider: AVA CAZARES Physician Instructions: Reason For Exam: afib/rvr 01/18/19 21:23 Consult to Physician [CONS] Routine Comment: Consulting Provider: DAKOTAH PAVON Physician Instructions: Reason For Exam: cc [facility] Condition: Stable Hospital course: The pt is a 73 YO female with a past medical history of chronic atrial fibrillation, anticoagulated on Eliquis, HFrEF, NICMP, HTN, LBBB, CVA, COPD, tobacco use presented with c/o palpitations and SOB for one day duratioj. She stated that she was having some dizziness and low BPs and thus her home medications were discontinued a couple of weeks ago by her PCP. The only medication she had been taking was Eliquis. Following arrival to ED, pt found to be in AFib RVR and was initiated on cardizem gtt and admitted for further management. Previous workup: LHC done 07/2017 showed mildly dilated LV, EF 40-45%, minimal coronary irregularities. Echo done 01/2018 showed EF 20-25%, mod LVH, LA mod to severely dilated, mild to mod MR, mild to mod TR. She was monitored at telemetry, cardiology was consulted, reduced elquis 2.5mg bid and started lopressor and amiodarone then changed to digoxin. She was continued on lasix, held juan/arb secondary to low bp, monitored vitals/ins/os, placed on cardiac diet.. She improved clinically, BP and HR stabilized. She was then discharged home in stable condition with outpt followup. Radiological data: Chest x-ray no infiltrates Discharge diagnosis: Atrial fibrillation, and acute on chronic Related hypotension, resolved/improved CHFrEF 20-25%, compensated History of CVA History of COPD without any exacerbation Tobacco abuse Hospitalist Physical exam: GENERAL: well-developed elderly female lying on bed appeared to be in no discomfort. HEENT: Normocephalic. Atraumatic. No conjunctival congestion or icterus. Patient has moist mucous membranes. NECK: Supple. Trachea midline. CHEST/LUNGS: Clear to auscultated bilaterally, breathing nonlabored. No wheezes crackles or rhonchi. HEART/CARDIOVASCULAR: Irregular in rate and rhythm. S1 and S2 positive. ABDOMEN: Abdomen is soft, nontender. Patient has normal bowel sounds. SKIN: There is no rash. Warm and dry. NEURO: No focal motor deficit. Follows command. MUSCULOSKELETAL: No joint effusion or tenderness. EXTRIMITY: No edema, no cyanosis or clubbing. PSYCH: Cooperative. Disposition: DC/TX-06 HOME UNDER HOME [facility] Time spent for discharge: 34 minutes Core Measure Documentation - Palliative Care Palliative Care/ Comfort Measures: Not Applicable - Core Measures Any of the following diagnoses?: heart failure - Heart Failure Discharge Requirements JUAN/ARB for LVSD if EF <40%: Not Applicable Reason for no JUAN/ARB: Hypotension Beta frederick at discharge: Yes Exam - Constitutional Vitals: Temp Pulse Resp BP Pulse Ox 98.3 F 44 L 18 170/86 100 01/21/19 08:29 01/21/19 10:00 01/21/19 08:29 01/21/19 08:29 01/21/19 08:29 Plan Activity: fall precautions Weight Bearing Status: Non-Weight Bearing Diet: low fat, low salt Follow up with: JAMAL KELLER MD [Primary Care Provider] - 7 Days RIDDHI JIMENEZ MD [Staff Physician] - 7 Days
--- NOTE | 2019-01-21 17:25 | Progress Note ---
Assessment and Plan - Patient Problems (1) Acute respiratory failure Status: Acute Qualifiers: Respiratory failure complication: hypoxia Qualified Code(s): J96.01 - Acute respiratory failure with hypoxia (2) COPD (chronic obstructive pulmonary disease) Status: Chronic (3) Acute systolic CHF (congestive heart failure), NYHA class 4 Status: Acute (4) HTN (hypertension) Status: Chronic Qualifiers: Hypertension type: essential hypertension Qualified Code(s): I10 - Essential (primary) hypertension (5) History of CVA (cerebrovascular accident) Status: Chronic (6) Tobacco use Status: Chronic Subjective Date of service: 01/21/19 Principal diagnosis: chf and afib Interval history: Patient left before I see the patient. Objective Vital Signs - 12hr 01/21/19 01/21/19 01/21/19 06:03 08:29 09:03 Temperature 98.3 F Pulse Rate 69 82 Pulse Rate [ 40 L From Monitor] Respiratory 18 Rate Blood Pressure 151/77 170/86 O2 Sat by Pulse 100 Oximetry 01/21/19 10:00 Temperature Pulse Rate 44 L Pulse Rate [ From Monitor] Respiratory Rate Blood Pressure O2 Sat by Pulse Oximetry CBC and BMP: 01/21/19 09:14 01/21/19 09:14 Abnormal lab findings: Abnormal Labs 01/18/19 01/18/19 01/18/19 Unknown Unknown Unknown WBC MCH 33 H MCHC 35 H Plt Count 107 L [place] % (Auto) 9.9 H Lymph # 1.1 L Potassium Chloride Carbon Dioxide 18 L BUN 24 H Creatinine 1.3 H Glucose 129 H AST 83 H ALT 60 H NT-Pro-B Natriuret Pep Total Protein Albumin TSH 5.450 H 01/18/19 01/19/19 01/19/19 Unknown 03:41 03:41 WBC MCH MCHC 35 H Plt Count 96 L [place] % (Auto) 11.7 H Lymph # Potassium Chloride Carbon Dioxide 20 L BUN 24 H Creatinine Glucose AST ALT NT-Pro-B Natriuret Pep 63342 H Total Protein Albumin TSH 01/20/19 01/21/19 01/21/19 05:32 09:14 09:14 WBC 3.0 L MCH MCHC Plt Count 112 L [place] % (Auto) Lymph # 0.7 L Potassium 3.5 L Chloride 109.0 H Carbon Dioxide BUN 25 H 24 H Creatinine Glucose AST ALT NT-Pro-B Natriuret Pep Total Protein 6.0 L Albumin 3.2 L TSH Chest x-ray: report reviewed (REPORTED STABLE CARDIOMEGALY, nO ACUTE PULMONARY PROCESS.), image reviewed
[2019-01-22] MEDS ORDERED: LANOXIN PO SCH (17:00)
== END 2019-01-21 18:00 | disposition home health service (06) | DRG 291 ==
LOC: ED 16:11 → CC1 21:21 → 4A 01-19 09:56
PROVIDERS: ADMIT Internal Medicine; ATTEND Internal Medicine
DX: I13.0 Hypertensive heart and chronic kidney disease with heart failure and stage 1 through stage 4 chronic kidney disease, or unspecified chronic kidney disease (principal); J96.01 Acute respiratory failure with hypoxia; I50.23 Acute on chronic systolic (congestive) heart failure; J44.1 Chronic obstructive pulmonary disease with (acute) exacerbation; I48.0 Paroxysmal atrial fibrillation; I42.0 Dilated cardiomyopathy; E78.5 Hyperlipidemia, unspecified; K21.9 Gastro-esophageal reflux disease without esophagitis; F32.9 Major depressive disorder, single episode, unspecified; I25.2 Old myocardial infarction; F17.210 Nicotine dependence, cigarettes, uncomplicated; I25.10 Atherosclerotic heart disease of native coronary artery without angina pectoris; N18.9 Chronic kidney disease, unspecified; Z79.01 Long term (current) use of anticoagulants; Z86.73 Personal history of transient ischemic attack (TIA), and cerebral infarction without residual deficits
CPT/HCPCS: 36415; 71045; 80048; 80053; 82550; 82553; 83735; 83880; 84436; 84443; 84484; 85025; 93005; 93010; 94640; 94760; 96374; 96375; G0378; A9270-GY; J1160; J7040

== ENCOUNTER 2019-01-27 20:27 | Inpatient (IN) | payer MEDICARE ==
--- NOTE | 2019-01-27 21:26 | Emergency Department Report ---
HPI - General Chief Complaint: Weakness Time Seen by Provider: 01/27/19 21:07 - HPI HPI: Room 22 The patient is a 73-year-old female presenting with a chief complaint of shortness of breath. Patient states this morning she developed substernal chest pressure has been intermittent and associated with shortness of breath and diaphoresis. Patient denies nausea or vomiting. Patient denies any other forms of pain. Patient states she has a hard time explaining how she is actually feeling. Location: Chest Duration: [See above] Quality: Pressure Severity: [See above] Modifying factors: [see above] Context: [see above] Mode of transportation: [not driving] ED Past Medical Hx - Past Medical History Hx Hypertension: Yes Hx Heart Attack/AMI: Yes Hx Congestive Heart Failure: Yes (card cath ef 40-45%, minimal coronary irregularities) Hx COPD: Yes Additional medical history: pneumonia. Atrial fibrillation. Dilated cardiomyopathy - Surgical History Hx Breast Surgery: Yes Additional Surgical History: breast surgery - Family History Family history: no significant - Social History Smoking Status: Current Every Day Smoker (1/2 pack per day) Substance Use Type: None (denies illicit drug use) - Medications Home Medications: Home Medications Medication Instructions Recorded Confirmed Last Taken Type Citalopram [Celexa] 20 mg PO QDAY #30 tablet 10/25/18 01/18/19 01/11/19 Rx Rosuvastatin Calcium [Crestor] 20 mg PO DAILY #30 tablet 10/25/18 01/18/19 01/11/19 Rx Apixaban [Eliquis] 2.5 mg PO Q12HR #60 tablet 01/21/19 Unknown Rx AtorvaSTATin [Lipitor] 40 mg PO QHS #30 tablet 01/21/19 Unknown Rx Digoxin [Lanoxin] 0.125 mg PO DAILY@1700 #1 tablet 01/21/19 Unknown Rx Furosemide [Lasix TAB] 20 mg PO QDAY #10 tablet 01/21/19 Unknown Rx Metoprolol [Lopressor TAB] 50 mg PO BID #60 tablet 01/21/19 Unknown Rx ED Review of Systems ROS: Stated complaint: MALAISE Other details as noted in HPI Constitutional: diaphoresis Eyes: denies: eye pain ENT: denies: throat pain Respiratory: shortness of breath Cardiovascular: chest pain Endocrine: no symptoms reported Gastrointestinal: denies: abdominal pain, nausea, vomiting Genitourinary: denies: dysuria Musculoskeletal: denies: back pain Neurological: denies: headache Physical Exam - Physical Exam Vital Signs: Vital Signs 01/27/19 20:52 Temperature 98.3 F Pulse Rate 77 Respiratory 28 H Rate Blood Pressure 127/95 O2 Sat by Pulse 96 Oximetry Physical Exam: GENERAL: The patient is well-developed well-nourished female lying on stretcher not appearing to be in acute distress. [] HEENT: Normocephalic. Atraumatic. Extraocular motions are intact. Patient has moist mucous membranes. NECK: Supple. Trachea midline CHEST/LUNGS: Clear to auscultation. There is no respiratory distress noted. HEART/CARDIOVASCULAR: Irregularly irregular. There is no tachycardia. There is no gallop rub or murmur. ABDOMEN: Abdomen is soft, nontender. Patient has normal bowel sounds. There is no abdominal distention. SKIN: There is no rash. There is no edema. There is no diaphoresis. NEURO: The patient is awake, alert, and oriented. The patient is cooperative. The patient has normal speech MUSCULOSKELETAL: There is no evidence of acute injury. ED Course Vital Signs 01/27/19 20:52 Temperature 98.3 F Pulse Rate 77 Respiratory 28 H Rate Blood Pressure 127/95 O2 Sat by Pulse 96 Oximetry ED Medical Decision Making - Lab Data Result diagrams: 01/27/19 21:21 01/27/19 21:21 Laboratory Tests 01/27/19 01/27/19 01/27/19 21:21 21:21 21:21 WBC 5.1 RBC 3.82 Hgb 12.2 Hct 36.3 MCV 95 MCH 32 MCHC 34 RDW 13.9 Plt Count 148 Lymph % (Auto) 31.0 [place] % (Auto) 10.1 H Eos % (Auto) 0.7 Baso % (Auto) 1.1 Lymph # 1.6 [place] # 0.5 Eos # 0.0 Baso # 0.1 Seg Neutrophils % 57.1 Seg Neutrophils # 2.9 PT INR APTT Sodium 138 Potassium 4.2 Chloride 98.8 Carbon Dioxide 24 Anion Gap 19 BUN 26 H Creatinine 1.2 Estimated GFR 44 BUN/Creatinine Ratio 22 Glucose 104 H Calcium 8.8 Magnesium 2.00 Total Bilirubin 0.60 AST 90 H ALT 102 H Alkaline Phosphatase 168 H Ammonia Total Creatine Kinase 61 CK-MB (CK-2) 2.6 CK-MB (CK-2) Rel Index 4.2 H Troponin T < 0.010 Total Protein 6.9 Albumin 3.8 L Albumin/Globulin Ratio 1.2 TSH Free T4 Digoxin Plasma/Serum Alcohol 01/27/19 01/27/19 01/27/19 21:21 21:21 21:21 WBC RBC Hgb Hct MCV MCH MCHC RDW Plt Count Lymph % (Auto) [place] % (Auto) Eos % (Auto) Baso % (Auto) Lymph # [place] # Eos # Baso # Seg Neutrophils % Seg Neutrophils # PT INR APTT Sodium Potassium Chloride Carbon Dioxide Anion Gap BUN Creatinine Estimated GFR BUN/Creatinine Ratio Glucose Calcium Magnesium Total Bilirubin AST ALT Alkaline Phosphatase Ammonia 37.0 Total Creatine Kinase CK-MB (CK-2) CK-MB (CK-2) Rel Index Troponin T Total Protein Albumin Albumin/Globulin Ratio TSH 6.020 H Free T4 1.16 Digoxin 0.8 L Plasma/Serum Alcohol 01/27/19 01/27/19 21:21 21:21 WBC RBC Hgb Hct MCV MCH MCHC RDW Plt Count Lymph % (Auto) [place] % (Auto) Eos % (Auto) Baso % (Auto) Lymph # [place] # Eos # Baso # Seg Neutrophils % Seg Neutrophils # PT 14.4 INR 1.15 H APTT 24.8 Sodium Potassium Chloride Carbon Dioxide Anion Gap BUN Creatinine Estimated GFR BUN/Creatinine Ratio Glucose Calcium Magnesium Total Bilirubin AST ALT Alkaline Phosphatase Ammonia Total Creatine Kinase CK-MB (CK-2) CK-MB (CK-2) Rel Index Troponin T Total Protein Albumin Albumin/Globulin Ratio TSH Free T4 Digoxin Plasma/Serum Alcohol < 0.01 - EKG Data -: EKG Interpreted by Me EKG shows normal: sinus rhythm Rate: normal - EKG Data When compared to previous EKG there are: changes noted Interpretation: nonspecific ST-T wave gala (ST depression, V5, V6) - Radiology Data Radiology results: image reviewed (chest x-ray) interpreted by me: Chest [id number]. No pneumothorax. - Differential Diagnosis ACS, pericarditis, GERD, CHF Critical care attestation.: If time is entered above; I have spent that time in minutes in the direct care of this critically ill patient, excluding procedure time. ED Disposition Clinical Impression: Chest pain, Fatigue Disposition: OP ADMIT IP TO THIS HOSP Is pt being admited?: Yes Does the pt Need Aspirin: Yes Condition: Stable Instructions: Chest Pain (ED) Time of Disposition: 22:35 (hospitalist paged (Dr Navarrete))
[2019-01-27 21:33] LABS: Basophils # (Auto) 0.1 K/mm3 (0.0-0.1); Basophils % (Auto) 1.1 % (0.0-1.8); Eosinophils % (Auto) 0.7 % (0.0-4.3); Hematocrit 36.3 % (30.3-42.9); Hemoglobin 12.2 gm/dl (10.1-14.3); Lymphocytes # (Auto) 1.6 K/mm3 (1.2-5.4); Mean Corpuscular HGB Conc 34 % (30-34); Mean Corpuscular Volume 95 fl (79-97); Monocytes # (Auto) 0.5 K/mm3 (0.0-0.8); Monocytes % (Auto) 10.1 % (0.0-7.3); Platelet Count 148 K/mm3 (140-440); Red Blood Count 3.82 M/mm3 (3.65-5.03); Red Cell Distribution Width 13.9 % (13.2-15.2)
[2019-01-27 21:44] LABS: INR 1.15 (0.87-1.13); Partial Thromboplastin Time 24.8 Sec. (24.2-36.6)
[2019-01-27 21:53] LABS: Creatine Kinase MB 2.6 ng/mL (0.0-4.0)
[2019-01-27 21:54] LABS: Albumin 3.8 g/dL (3.9-5); Calcium 8.8 mg/dL (8.4-10.2)
[2019-01-27 22:07] LABS: Free T4 (Free Thyroxine) 1.16 ng/dL (0.76-1.46)
[2019-01-27] MEDS ORDERED: ASPIRIN PO ONE (22:35)
--- NOTE | 2019-01-27 22:58 | XRay Report ---
PROCEDURE: XR CHEST 1V AP TECHNIQUE: Chest radiograph single view. HISTORY: chest pain COMPARISONS: CXR 01/18/2019 . FINDINGS: Heart: Enlarged but stable. Mediastinum/Vessels: Calcification of the aorta is again noted. Lungs/Pleural space: Small left pleural effusion is noted laterally.. Bony thorax: No acute osseous abnormality. Life support devices: None. IMPRESSION: Small left pleural effusion. This document is electronically signed by Romy Womack MD., January 27 2019 10:56:35 PM ET
[2019-01-27] MEDS ORDERED: ZOFRAN IV PRN (23:26)
[2019-01-27] MEDS ORDERED: MORPHINE IV PRN (23:26)
[2019-01-27] MEDS ORDERED: TYLENOL PO PRN (23:26)
[2019-01-27] MEDS ORDERED: SODIUM CHLORIDE FLUSH SYRINGE 10 ML IV PRN (23:26)
--- NOTE | 2019-01-27 23:32 | History and Physical Report ---
History of Present Illness Date of examination: 01/27/19 Chief complaint: "I couldn't breathe" History of present illness: Patient is a 73-year-old female with history of CHF and atrial fibrillation who presented to the ED on account of few hours history of shortness of breath at rest and on mild exertion. She has associated chest pressure, chills without fever and leg swelling. She denies palpitation, diaphoresis, cough, orthopnea, PND, headaches, nausea, vomiting, lightheade dness, syncope or loss of consciousness. Past History Past Medical History: atrial fib, CAD, COPD, heart failure, hypertension, hyperlipidemia, renal failure Past Surgical History: Other (breast cyst removal) Social history: smoking (patient has more than 50 years history of cigarette smoking. She currently smokes half pack per day. She denies alcohol or illicit drug use.) Family history: other (2 sisters from unknown cancer.) Medications and Allergies Allergies Allergy/AdvReac Type Severity Reaction Status Date / Time No Known Allergies Allergy Verified 10/19/18 14:21 Home Medications Medication Instructions Recorded Confirmed Last Taken Type Citalopram [Celexa] 20 mg PO QDAY #30 tablet 10/25/18 01/18/19 01/11/19 Rx Rosuvastatin Calcium [Crestor] 20 mg PO DAILY #30 tablet 10/25/18 01/18/19 01/11/19 Rx Apixaban [Eliquis] 2.5 mg PO Q12HR #60 tablet 01/21/19 Unknown Rx AtorvaSTATin [Lipitor] 40 mg PO QHS #30 tablet 01/21/19 Unknown Rx Digoxin [Lanoxin] 0.125 mg PO DAILY@1700 #1 tablet 01/21/19 Unknown Rx Furosemide [Lasix TAB] 20 mg PO QDAY #10 tablet 01/21/19 Unknown Rx Metoprolol [Lopressor TAB] 50 mg PO BID #60 tablet 01/21/19 Unknown Rx Active Meds: Active Medications Acetaminophen (Tylenol) 650 mg PO Q4H PRN PRN Reason: Pain MILD(1-3)/Fever >100.5/VAZQUEZ Aspirin (Halfprin Ec) 81 mg PO QDAY ANGÉLICA Famotidine (Pepcid) 10 mg PO BID ANGÉLICA Morphine Sulfate (Morphine) 2 mg IV Q4H PRN PRN Reason: Pain , Severe (7-10) Ondansetron HCl (Zofran) 4 mg IV Q8H PRN PRN Reason: Nausea And Vomiting Oxycodone/Acetaminophen (Percocet 5/325) 1 tab PO Q6H PRN PRN Reason: Pain, Moderate (4-6) Sodium Chloride (Sodium Chloride Flush Syringe 10 Ml) 10 ml IV BID ANGÉLICA Sodium Chloride (Sodium Chloride Flush Syringe 10 Ml) 10 ml IV PRN PRN PRN Reason: LINE FLUSH Review of Systems All systems: negative (except as documented in the HPI, 14 point system reviewed were negative) Exam - Constitutional Vitals: Temp Pulse Resp BP Pulse Ox 98.3 F 77 28 H 127/95 96 01/27/19 20:52 01/27/19 20:52 01/27/19 20:52 01/27/19 20:52 01/27/19 20:52 General appearance: Present: no acute distress - EENT Eyes: Present: PERRL, EOM intact ENT: hearing intact, clear oral mucosa - Neck Neck: Present: supple, normal ROM - Respiratory Respiratory effort: normal Respiratory: bilateral: diminished - Cardiovascular Rhythm: irregularly irregular Heart Sounds: Present: S1 & S2 - Extremities Extremities: pulses symmetrical, No edema Peripheral Pulses: within normal limits - Abdominal General gastrointestinal: Present: soft, non-tender, non-distended, normal bowel sounds Female genitourinary: Present: deferred - Integumentary Integumentary: Present: clear, warm, dry - Musculoskeletal Musculoskeletal: gait normal, strength equal bilaterally - Psychiatric Psychiatric: cooperative - Neurologic Neurologic: CNII-XII intact, moves all extremities Results - Labs CBC & Chem 7: 01/27/19 21:21 01/27/19 21:21 Labs: Laboratory Last Values WBC 5.1 K/mm3 (4.5-11.0) 01/27/19 21: RBC 3.82 M/mm3 (3.65-5.03) 01/27/19 21:21 Hgb 12.2 gm/dl (10.1-14.3) 01/27/19 21:21 Hct 36.3 % (30.3-42.9) 01/27/19 21:21 MCV 95 fl (79-97) 01/27/19 21: MCH 32 pg (28-32) 01/27/19 21:21 MCHC 34 % (30-34) 01/27/19 21:21 RDW 13.9 % (13.2-15.2) 01/27/19 21:21 Plt Count 148 K/mm3 (140-440) 01/27/19 21:21 Lymph % (Auto) 31.0 % (13.4-35.0) 01/27/19 21:21 [place] % (Auto) 10.1 % (0.0-7.3) H 01/27/19 21:21 Eos % (Auto) 0.7 % (0.0-4.3) 01/27/19 21:21 Baso % (Auto) 1.1 % (0.0-1.8) 01/27/19 21:21 Lymph # 1.6 K/mm3 (1.2-5.4) 01/27/19 21:21 [place] # 0.5 K/mm3 (0.0-0.8) 01/27/19 21:21 Eos # 0.0 K/mm3 (0.0-0.4) 01/27/19 21:21 Baso # 0.1 K/mm3 (0.0-0.1) 01/27/19 21:21 Seg Neutrophils % 57.1 % (40.0-70.0) 01/27/19 21:21 Seg Neutrophils # 2.9 K/mm3 (1.8-7.7) 01/27/19 21:21 PT 14.4 Sec. (12.2-14.9) 01/27/19 21:21 INR 1.15 (0.87-1.13) H 01/27/19 21:21 APTT 24.8 Sec. (24.2-36.6) 01/27/19 21:21 Sodium 138 mmol/L (137-145) 01/27/19 21:21 Potassium 4.2 mmol/L (3.6-5.0) 01/27/19 21:21 Chloride 98.8 mmol/L (98-107) 01/27/19 21:21 Carbon Dioxide 24 mmol/L (22-30) 01/27/19 21:21 19 mmol/L 01/27/19 21:21 BUN 26 mg/dL (7-17) H 01/27/19 21:21 1.2 mg/dL (0.7-1.2) 01/27/19 21:21 Estimated GFR 44 ml/min 01/27/19 21:21 22 % 01/27/19 21:21 Glucose 104 mg/dL (65-100) H 01/27/19 21:21 Calcium 8.8 mg/dL (8.4-10.2) 01/27/19 21:21 Magnesium 2.00 mg/dL (1.7-2.3) 01/27/19 21:21 0.60 mg/dL (0.1-1.2) 01/27/19 21:21 AST 90 units/L (5-40) H 01/27/19 21:21 ALT 102 units/L (7-56) H 01/27/19 21:21 168 units/L (35-129) H 01/27/19 21:21 37.0 umol/L (25-60) 01/27/19 21:21 61 units/L (30-135) 01/27/19 21:21 CK-MB (CK-2) 2.6 ng/mL (0.0-4.0) 01/27/19 21:21 CK-MB (CK-2) Rel Index 4.2 (0-4) H 01/27/19 21:21 < 0.010 ng/mL (0.00-0.029) 01/27/19 21:21 6.9 g/dL (6.3-8.2) 01/27/19 21:21 3.8 g/dL (3.9-5) L 01/27/19 21:21 1.2 % 01/27/19 21:21 TSH 6.020 mlU/mL (0.270-4.200) H 01/27/19 21:21 Free T4 1.16 ng/dL (0.76-1.46) 01/27/19 21:21 Digoxin 0.8 ng/mL (0.9-2.0) L 01/27/19 21:21 Plasma/Serum Alcohol < 0.01 % (0-0.07) 01/27/19 21:21 Assessment and Plan Assessment and plan: Acute on chronic combined systolic and diastolic heart failure -On CHF protocol -Last echocardiogram was in 10/24 which showed EF of 20-25% with diastolic dysfunction Chest pressure -Continue serial troponin level monitoring -Consider stress test before discharge since patient's last evaluation with cardiac catheterization was in 2017 Transaminitis -Probably liver congestion from right heart failure -We'll monitor LFT Chronic atrial fibrillation -Heart rate controlled -Continue home medications including oral anticoagulation with Eliquis Hypertension -Controlled History of COPD -No acute exacerbation -On nebulizer breathing treatments History of CAD -Stable CKD stage III -Renal functional level at baseline HLD -Continue statin History of tobacco abuse -Patient counseled on cessation DVT prophylaxis: patient is on Eliquis Disposition: Patient will be placed in inpatient status with plan for discharge when medically stable Time spent: 40 minutes
[2019-01-28] MEDS: DUONEB *Not for PRN Use IH SCH ×4 (02:00→21:36)
[2019-01-28] MEDS ORDERED: LASIX ONE (04:09)
[2019-01-28] MEDS: LASIX IV SCH ×2 (04:31→10:22)
[2019-01-28 05:00] LABS: Alanine Aminotransferase 93 units/L (7-56); Albumin 3.7 g/dL (3.9-5); BUN/Creatinine Ratio 23; Blood Urea Nitrogen 28 mg/dL (7-17); Calcium 8.6 mg/dL (8.4-10.2); Hemolysis Index 13
[2019-01-28] MEDS: SODIUM CHLORIDE FLUSH SYRINGE 10 ML IV SCH (10:23)
[2019-01-28] MEDS: PEPCID PO SCH (10:23)
[2019-01-28] MEDS: HALFPRIN EC PO SCH (10:23)
--- NOTE | 2019-01-28 14:10 | Progress Note ---
Subjective Date of service: 01/28/19 Principal diagnosis: acute on chronic systolic and diastolic HF, chest pain, chronic afeb, CKD Interval history: Patient seen and examined. Laying quietly in bed. No visual distress. Denies any orthopnea. No chest pain at time. Objective - Exam Narrative Exam: Constitutional: Well-nourished well-developed. In no distress Head: Normocephalic atraumatic Eyes: Pupils are equal round and reactive to light Nose: No enlarged turbinates, no septal deviation. Mouth: Moist mucous membranes. Neck: Supple no thyromegaly. No bruit. No JVD Heart: Regular rate and rhythm, S1-S2 normal. No rubs murmurs or gallop Lungs: Decreased breath sounds to auscultation bilaterally. no rales or rhonchi Abdomen: Soft, nontender. Bowel sound are present. Extremities: No edema, no cyanosis, no clubbing. Neuro: Alert oriented Oriented x3. No focal sensory or motor deficit. Skin: No rashes or hyperpigmented spots Musculoskeletal system: No joint pain or swelling Hematological: No petechia or subcutanous hemorrhages. Immunological: No multiple septic spots on the skin Lymphatic: No generalized lymphadenopathy Psychiatry: Euthymic. Calm. - Constitutional Vitals: Vital Signs - 12hr 01/28/19 01/28/19 01/28/19 02:20 02:30 02:40 Temperature Pulse Rate Pulse Rate [ Anterior Throughout] Respiratory Rate Respiratory Rate [Anterior Throughout] Blood Pressure 153/88 153/88 153/88 Blood Pressure [Left] O2 Sat by Pulse 92 91 95 Oximetry 01/28/19 01/28/19 01/28/19 02:50 03:00 03:10 Temperature Pulse Rate Pulse Rate [ Anterior Throughout] Respiratory Rate Respiratory Rate [Anterior Throughout] Blood Pressure 153/88 153/88 153/88 Blood Pressure [Left] O2 Sat by Pulse 95 93 92 Oximetry 01/28/19 01/28/19 01/28/19 03:20 03:30 03:40 Temperature Pulse Rate Pulse Rate [ Anterior Throughout] Respiratory Rate Respiratory Rate [Anterior Throughout] Blood Pressure 153/88 153/88 153/88 Blood Pressure [Left] O2 Sat by Pulse 92 97 92 Oximetry 01/28/19 01/28/19 01/28/19 03:49 03:50 04:01 Temperature Pulse Rate 84 Pulse Rate [ Anterior Throughout] Respiratory 22 Rate Respiratory Rate [Anterior Throughout] Blood Pressure 124/88 117/90 Blood Pressure 124/98 [Left] O2 Sat by Pulse 96 93 92 Oximetry 01/28/19 01/28/19 01/28/19 04:10 04:20 04:30 Temperature Pulse Rate Pulse Rate [ Anterior Throughout] Respiratory Rate Respiratory Rate [Anterior Throughout] Blood Pressure 117/90 119/78 119/78 Blood Pressure [Left] O2 Sat by Pulse 95 94 92 Oximetry 01/28/19 01/28/19 01/28/19 04:52 04:53 04:56 Temperature 97.5 F L Pulse Rate 90 87 Pulse Rate [ Anterior Throughout] Respiratory 20 16 Rate Respiratory Rate [Anterior Throughout] Blood Pressure 124/82 Blood Pressure [Left] O2 Sat by Pulse 99 Oximetry 01/28/19 01/28/19 01/28/19 08:03 08:11 09:41 Temperature 98.5 F Pulse Rate 89 Pulse Rate [ 92 H 94 H Anterior Throughout] Respiratory 16 Rate Respiratory 18 18 Rate [Anterior Throughout] Blood Pressure 157/78 Blood Pressure [Left] O2 Sat by Pulse 98 Oximetry - Labs CBC & Chem 7: 01/27/19 21:21 01/28/19 03:31 Labs: Abnormal lab results 01/27/19 01/27/19 01/27/19 Range/Units 21:21 21:21 21:21 [place] % (Auto) 10.1 H (0.0-7.3) % INR (0.87-1.13) BUN 26 H (7-17) mg/dL Glucose 104 H (65-100) mg/dL AST 90 H (5-40) units/L ALT 102 H (7-56) units/L Alkaline Phosphatase 168 H (35-129) units/L CK-MB (CK-2) Rel Index 4.2 H (0-4) NT-Pro-B Natriuret Pep (0-900) pg/mL Albumin 3.8 L (3.9-5) g/dL TSH (0.270-4.200) mlU/mL Digoxin (0.9-2.0) ng/mL 01/27/19 01/27/19 01/27/19 Range/Units 21:21 21:21 21:21 [place] % (Auto) (0.0-7.3) % INR 1.15 H (0.87-1.13) BUN (7-17) mg/dL Glucose (65-100) mg/dL AST (5-40) units/L ALT (7-56) units/L Alkaline Phosphatase (35-129) units/L CK-MB (CK-2) Rel Index (0-4) NT-Pro-B Natriuret Pep (0-900) pg/mL Albumin (3.9-5) g/dL TSH 6.020 H (0.270-4.200) mlU/mL Digoxin 0.8 L (0.9-2.0) ng/mL 01/27/19 01/28/19 Range/Units 23:31 03:31 [place] % (Auto) (0.0-7.3) % INR (0.87-1.13) BUN 28 H (7-17) mg/dL Glucose 102 H (65-100) mg/dL AST 71 H (5-40) units/L ALT 93 H (7-56) units/L Alkaline Phosphatase 164 H (35-129) units/L CK-MB (CK-2) Rel Index (0-4) NT-Pro-B Natriuret Pep > 92033 H (0-900) pg/mL Albumin 3.7 L (3.9-5) g/dL TSH (0.270-4.200) mlU/mL Digoxin (0.9-2.0) ng/mL
[2019-01-28 20:18] LABS: Bilirubin,Urine NEG (Negative); Blood,Urine SM (Negative); Color,Urine Straw (Yellow); Protein,Urine <15 mg/dL mg/dL (Negative); Urobilinogen,Urine < 2.0 mg/dL (<2.0); WBC,Urine < 1.0 /HPF (0.0-6.0)
[2019-01-29] MEDS: PEPCID PO SCH ×3 (00:08→22:28)
[2019-01-29] MEDS: LASIX IV SCH ×2 (00:08→10:33)
[2019-01-29] MEDS: SODIUM CHLORIDE FLUSH SYRINGE 10 ML IV SCH ×3 (00:09→22:30)
[2019-01-29] MEDS: DUONEB *Not for PRN Use IH SCH ×4 (03:29→20:59)
--- NOTE | 2019-01-29 08:54 | Progress Note ---
Assessment and Plan Patient is a 73-year-old female with history of CHF and atrial fibrillation who presented to the ED on account of few hours history of shortness of breath at rest and on mild exertion. She has associated chest pressure, chills without fever and leg swelling. She denies palpitation, diaphoresis, cough, orthopnea, PND, headaches, nausea, vomiting, lightheadedness, syncope or loss of consciousness. Acute on chronic combined systolic and diastolic heart failure -On CHF protocol Strict I's and O's, daily weights, diuresis, beta blockers, acei. -Last echocardiogram was in 01/23 which showed EF of 20-25% with dilated cardio myopathy Chest pressure -Continue serial troponin level monitoring -Consider stress test before discharge since patient's last evaluation with cardiac catheterization was in 2017 Transaminitis -Probably liver congestion from right heart failure -We'll monitor LFT Chronic atrial fibrillation - rate controlled -Heart rate controlled -Continue home medications including oral anticoagulation with Eliquis Hypertension -Controlled History of COPD -No acute exacerbation -On nebulizer breathing treatments History of CAD -Stable CKD stage III -Renal functional level at baseline HLD -Continue statin History of tobacco abuse -Patient counseled on cessation DVT prophylaxis: patient is on Eliquis Disposition: Patient will be placed in inpatient status with plan for discharge when medically stable Subjective Date of service: 01/29/19 Principal diagnosis: acute on chronic systolic and diastolic HF, chest pain, chronic afeb, CKD Interval history: Patient seen and examined. Laying quietly in bed. No visual distress. Denies any orthopnea. No chest pain at time. Objective - Exam Narrative Exam: Constitutional: Well-nourished well-developed.In no distress Head: Normocephalic atraumatic Eyes: Pupils are equal round and reactive to light Nose: No enlarged turbinates, no septal deviation. Mouth: Moist mucous membranes. Neck: Supple no thyromegaly. No bruit. No JVD Heart: Regular rate and rhythm, S1-S2 normal. No rubs murmurs or gallop Lungs: Decreased breath sounds to auscultation bilaterally. no rales or rhonchi Abdomen: Soft, nontender. Bowel sound are present. Extremities: No edema, no cyanosis, no clubbing. Neuro: Alert oriented Oriented x3. No focal sensory or motor deficit. Skin: No rashes or hyperpigmented spots Musculoskeletal system: No joint pain or swelling Hematological: No petechia or subcutanous hemorrhages. Immunological: No multiple septic spots on the skin Lymphatic: No generalized lymphadenopathy Psychiatry: Euthymic. Calm. - Constitutional Vitals: Vital Signs - 12hr 01/28/19 01/29/19 01/29/19 21:38 00:16 00:30 Temperature Pulse Rate 84 Pulse Rate [ Anterior Throughout] Respiratory 18 18 Rate Respiratory Rate [Anterior Throughout] Blood Pressure 140/73 Blood Pressure [Left] O2 Sat by Pulse 100 99 Oximetry 01/29/19 01/29/19 01/29/19 00:32 04:00 04:33 Temperature 98.3 F 97.7 F Pulse Rate 77 66 Pulse Rate [ Anterior Throughout] Respiratory 18 Rate Respiratory Rate [Anterior Throughout] Blood Pressure Blood Pressure 117/79 [Left] O2 Sat by Pulse 96 Oximetry 01/29/19 01/29/19 08:07 08:24 Temperature Pulse Rate Pulse Rate [ 85 73 Anterior Throughout] Respiratory Rate Respiratory 18 20 Rate [Anterior Throughout] Blood Pressure Blood Pressure [Left] O2 Sat by Pulse 97 Oximetry - Labs CBC & Chem 7: 01/27/19 21:21 01/28/19 03:31
[2019-01-29 09:55] LABS: Basophils % (Auto) 0.6 % (0.0-1.8); Eosinophils % (Auto) 0.8 % (0.0-4.3); Hematocrit 39.9 % (30.3-42.9); Hemoglobin 13.8 gm/dl (10.1-14.3); Lymphocytes # (Auto) 1.3 K/mm3 (1.2-5.4); Lymphocytes % (Auto) 30.8 % (13.4-35.0); Mean Corpuscular HGB Conc 35 % (30-34); Mean Corpuscular Volume 93 fl (79-97); Monocytes # (Auto) 0.4 K/mm3 (0.0-0.8); Monocytes % (Auto) 8.8 % (0.0-7.3); Platelet Count 131 K/mm3 (140-440); Red Blood Count 4.28 M/mm3 (3.65-5.03); Red Cell Distribution Width 13.7 % (13.2-15.2)
[2019-01-29] MEDS ORDERED: NON-FORMULARY (Rosuvastatin Calcium [Crestor] 20 MG) PO SCH (10:00)
[2019-01-29] MEDS ORDERED: LOPRESSOR PO SCH (10:00)
[2019-01-29 10:18] LABS: Albumin 3.9 g/dL (3.9-5); Calcium 8.4 mg/dL (8.4-10.2)
[2019-01-29] MEDS: HALFPRIN EC PO SCH (10:32)
[2019-01-29] MEDS: celeXA PO SCH (10:33)
[2019-01-29] MEDS: ELIQUIS PO SCH ×2 (10:33→22:28)
--- NOTE | 2019-01-29 12:56 | Consultation ---
History of Present Illness Consult date: 01/29/19 Requesting physician: NA LAURENT Consult reason: atrial fibrillation, congestive heart failure History of present illness: The pt is a 73 YO female with a past medical history of chronic atrial fibrillation, anticoagulated on Eliquis, HFrEF, NICMP, HTN, LBBB, CVA, COPD, tobacco use. She has been seen by our practice on prior hospitalizations but has admittedly not been compliant with OP follow up. She only regularly sees her PCP, Dr. Salgado. She presented with c/o generalized weakness. She is a rather poor historian and does not report any other symptoms. Per the chart, she presented with c/o shortness of breath and substernal chest pressure. No palpitations, n/v, dizziness or syncope.Patient denies nausea or vomiting. Pt found to be in AFib RVR. LHC done 07/2017 showed mildly dilated LV, EF 40-45%, minimal coronary irregularities. Echo done 10/2018 showed EF 20-25%, septal wall hypertrophy, impaired relaxation, LA mildly dilated, RV systolic function mildly reduced, trivial pericardial effusion. Past History Past Medical History: atrial fib, COPD, heart failure, hypertension, hyperlipidemia Past Surgical History: Other (breast cyst removal) Social history: smoking (patient has more than 50 years history of cigarette smoking. She currently smokes half pack per day. She denies alcohol or illicit drug use.) Family history: other (2 sisters from unknown cancer.) Medications and Allergies Allergies Allergy/AdvReac Type Severity Reaction Status Date / Time No Known Allergies Allergy Verified 10/19/18 14:21 Home Medications Medication Instructions Recorded Confirmed Last Taken Type Citalopram [Celexa] 20 mg PO QDAY #30 tablet 10/25/18 01/28/19 01/11/19 Rx Rosuvastatin Calcium [Crestor] 20 mg PO DAILY #30 tablet 10/25/18 01/28/19 01/11/19 Rx Apixaban [Eliquis] 2.5 mg PO Q12HR #60 tablet 01/21/19 01/28/19 01/08/19 08:00 Rx AtorvaSTATin [Lipitor] 40 mg PO QHS #30 tablet 01/21/19 01/28/19 01/08/19 08:00 Rx Digoxin [Lanoxin] 0.125 mg PO DAILY@1700 #1 tablet 01/21/19 01/28/19 01/08/19 08:00 Rx Furosemide [Lasix TAB] 20 mg PO QDAY #10 tablet 01/21/19 01/28/19 01/08/19 08:00 Rx Metoprolol [Lopressor TAB] 50 mg PO BID #60 tablet 01/21/19 01/28/19 01/08/19 08:00 Rx Active Meds: Active Medications Acetaminophen (Tylenol) 650 mg PO Q4H PRN PRN Reason: Pain MILD(1-3)/Fever >100.5/VAZQUEZ Albuterol/Ipratropium (Duoneb *Not For Prn Use*) 1 ampul IH Q6HRT [facility] Last Admin: 01/29/19 08:07 Dose: 1 ampul Documented by: Apixaban (Eliquis) 2.5 mg PO Q12HR [facility]; Protocol Last Admin: 01/29/19 10:33 Dose: 2.5 mg Documented by: Aspirin (Halfprin Ec) 81 mg PO QDAY [facility] Last Admin: 01/29/19 10:32 Dose: 81 mg Documented by: Atorvastatin Calcium (Lipitor) 40 mg PO QHS [facility] Citalopram Hydrobromide (Celexa) 20 mg PO QDAY [facility] Last Admin: 01/29/19 10:33 Dose: 20 mg Documented by: Digoxin (Lanoxin) 0.125 mg PO DAILY@1700 [facility] Famotidine (Pepcid) 10 mg PO BID [facility] Last Admin: 01/29/19 10:33 Dose: 10 mg Documented by: Furosemide (Lasix) 40 mg IV BID [facility] Last Admin: 01/29/19 10:33 Dose: 40 mg Documented by: Metoprolol Tartrate (Lopressor) 50 mg PO BID [facility] Last Admin: 01/29/19 10:32 Dose: 50 mg Documented by: Morphine Sulfate (Morphine) 2 mg IV Q4H PRN PRN Reason: Pain , Severe (7-10) Ondansetron HCl (Zofran) 4 mg IV Q8H PRN PRN Reason: Nausea And Vomiting Oxycodone/Acetaminophen (Percocet 5/325) 1 tab PO Q6H PRN PRN Reason: Pain, Moderate (4-6) Sodium Chloride (Sodium Chloride Flush Syringe 10 Ml) 10 ml IV BID [facility] Last Admin: 01/29/19 10:34 Dose: 10 ml Documented by: Sodium Chloride (Sodium Chloride Flush Syringe 10 Ml) 10 ml IV PRN PRN PRN Reason: LINE FLUSH Review of Systems Constitutional: weakness (generalized), no weight loss, no weight gain, no fev er, no chills, no sweats Ears, nose, mouth and throat: no ear pain, no nose pain, no sinus pressure, no sinus pain Cardiovascular: chest pain (per the chart, pt currently denies), shortness of breath, dyspnea on exertion, no orthopnea, no palpitations, no rapid/irregular heart beat, no edema, no syncope, no lightheadedness, no leg edema Respiratory: shortness of breath, dyspnea on exertion, no cough, no congestion, no wheezing, no pain on inspiration Gastrointestinal: no abdominal pain, no nausea, no vomiting, no diarrhea, no constipation, no change in bowel habits Genitourinary Female: no pelvic pain, no flank pain, no dysuria, no urinary frequency, no urgency Rectal: no pain Musculoskeletal: no neck stiffness, no neck pain Integumentary: no rash, no pruritis, no redness, no sores, no wounds Neurological: weakness (generalized ), no head injury, no paralysis, no parathesias, no numbness, no tingling, no seizures, no syncope Psychiatric: no anxiety Endocrine: no cold intolerance, no heat intolerance Hematologic/Lymphatic: no easy bruising, no easy bleeding Allergic/Immunologic: no urticaria, no wheezing Physical Examination Vital Signs Temp Pulse Resp BP Pulse Ox 98.3 F 77 28 H 127/95 96 01/27/19 20:52 01/27/19 20:52 01/27/19 20:52 01/27/19 20:52 01/27/19 20:52 General appearance: no acute distress HEENT: Positive: PERRL, Normocephaly, Mucus Membranes Moist Neck: Positive: neck supple, trachea midline Cardiac: Positive: irregularly irregular, S1/S2, Tachycardia Lungs: Positive: Decreased Breath Sounds Neuro: Positive: Grossly Intact Abdomen: Positive: Soft. Negative: Tender Skin: Negative: Rash, Wound Musculoskeletal: No Pain Extremities: Absent: edema Results 01/29/19 09:38 01/29/19 09:38 Cardiac Enzymes 06/24/19 Range/Units 09:38 AST 39 (5-40) units/L CBC 01/29/19 Range/Units 09:38 WBC 4.3 L (4.5-11.0) K/mm3 RBC 4.28 (3.65-5.03) M/mm3 Hgb 13.8 (10.1-14.3) gm/dl Hct 39.9 (30.3-42.9) % Plt Count 131 L (140-440) K/mm3 Lymph # 1.3 (1.2-5.4) K/mm3 [place] # 0.4 (0.0-0.8) K/mm3 Eos # 0.0 (0.0-0.4) K/mm3 Baso # 0.0 (0.0-0.1) K/mm3 Comprehensive Metabolic Panel 01/29/19 Range/Units 09:38 Sodium 143 (137-145) mmol/L Potassium 3.3 L D (3.6-5.0) mmol/L Chloride 94.4 L (98-107) mmol/L Carbon Dioxide 33 H D (22-30) mmol/L BUN 28 H (7-17) mg/dL Creatinine 1.5 H (0.7-1.2) mg/dL Glucose 182 H (65-100) mg/dL Calcium 8.4 (8.4-10.2) mg/dL AST 39 (5-40) units/L ALT 68 H (7-56) units/L Alkaline Phosphatase 136 H (35-129) units/L Total Protein 7.1 (6.3-8.2) g/dL Albumin 3.9 (3.9-5) g/dL - Imaging and Cardiology Echo: report reviewed (10/2018 showed EF 20-25%, septal wall hypertrophy, impaired relaxation, LA mildly dilated, RV systolic function mildly reduced, trivial pericardial effusion.) Cardiac cath: report reviewed (07/2017 showed mildly dilated LV, EF 40-45%, minimal coronary irregularities. ) EKG: report reviewed, image reviewed EKG interpretations - Telemetry EKG Rhythm: Atrial Fibrillation - EKG Supraventricular dysrhythmia: atrial fibrillation Assessment and Plan Optimize HR. Cont Eliquis. TSH elevated - further [place]/management per primary. The patient has been seen in conjunction with Dr. Nguyen who agrees with the assessment and plan of care. - Patient Problems (1) Atrial fibrillation with RVR Current Visit: Yes Status: Acute (2) BUTCH Current Visit: Yes Status: Acute (3) Chronic HFrEF (heart failure with reduced ejection fraction) Current Visit: Yes Status: Chronic (4) Nonischemic dilated cardiomyopathy Current Visit: Yes Status: Chronic (5) COPD (chronic obstructive pulmonary disease) Current Visit: Yes Status: Acute (6) History of CVA (cerebrovascular accident) Current Visit: Yes Status: Chronic (7) Tobacco use Current Visit: Yes Status: Chronic
[2019-01-29] MEDS: LOPRESSOR PO SCH ×2 (14:30→21:40)
[2019-01-29] MEDS: LANOXIN PO SCH (17:45)
[2019-01-29] MEDS ORDERED: PROVENTIL IH PRN (21:29)
[2019-01-30] MEDS: PERCOCET 5/325 PO PRN ×3 (08:20→18:20)
[2019-01-30] MEDS: LOPRESSOR PO SCH ×3 (08:43→21:14)
[2019-01-30] MEDS: DUONEB *Not for PRN Use IH SCH ×3 (08:48→20:03)
[2019-01-30] MEDS: PEPCID PO SCH ×2 (09:58→21:14)
[2019-01-30] MEDS: HALFPRIN EC PO SCH (09:58)
[2019-01-30] MEDS: celeXA PO SCH (09:58)
[2019-01-30] MEDS: SODIUM CHLORIDE FLUSH SYRINGE 10 ML IV SCH ×2 (09:59→21:15)
[2019-01-30] MEDS: ELIQUIS PO SCH ×2 (09:59→21:14)
[2019-01-30 10:38] LABS: Basophils % (Auto) 0.5 % (0.0-1.8); Eosinophils # (Auto) 0.1 K/mm3 (0.0-0.4); Eosinophils % (Auto) 2.1 % (0.0-4.3); Hematocrit 41.6 % (30.3-42.9); Lymphocytes # (Auto) 1.2 K/mm3 (1.2-5.4); Lymphocytes % (Auto) 27.1 % (13.4-35.0); Mean Corpuscular HGB Conc 34 % (30-34); Mean Corpuscular Volume 94 fl (79-97); Monocytes # (Auto) 0.4 K/mm3 (0.0-0.8); Monocytes % (Auto) 9.7 % (0.0-7.3); Platelet Count 137 K/mm3 (140-440); Red Blood Count 4.44 M/mm3 (3.65-5.03); Red Cell Distribution Width 13.6 % (13.2-15.2)
[2019-01-30 11:04] LABS: Albumin 3.8 g/dL (3.9-5); Calcium 9.2 mg/dL (8.4-10.2)
--- NOTE | 2019-01-30 11:14 | Progress Note ---
Assessment and Plan Assessment and plan: Hypokalemia: Replace with KCl and monitor levels Acute on chronic combined systolic and diastolic heart failure -On CHF protocol Strict I's and O's, daily weights, diuresis, beta blockers, acei. -Last echocardiogram was in 01/23 which showed EF of 20-25% with dilated cardiomyopathy Chest pressure -Continue serial troponin level monitoring -Consider stress test before discharge since patient's last evaluation with cardiac catheterization was in 2017 Transaminitis -Probably liver congestion from right heart failure -We'll monitor LFT Chronic atrial fibrillation - rate controlled -Heart rate controlled -Continue home medications including oral anticoagulation with Eliquis Hypertension -Controlled History of COPD -No acute exacerbation -On nebulizer breathing treatments History of CAD -Stable CKD stage III -Renal functional level at baseline HLD -Continue statin --Hypothyroidism : synthroid low dose History of tobacco abuse -Patient counseled on cessation DVT prophylaxis: patient is on Eliquis Disposition: Patient will be placed in inpatient status with plan for discharge when medically stable History Interval history: Patient seen and examined medical records reviewed Patient feels slightly better still complaints of shortness of breath Denies chest pain Alert awake oriented 3 Vital signs noted Hospitalist Physical - Constitutional Vitals: Temp Pulse Resp BP Pulse Ox 98.0 F 94 H 16 123/67 97 01/30/19 08:06 01/30/19 08:59 01/30/19 08:59 01/30/19 08:06 01/30/19 08:47 General appearance: Present: no acute distress, well-nourished - EENT Eyes: Present: PERRL, EOM intact - Neck Neck: Present: supple, normal ROM - Respiratory Respiratory effort: normal Respiratory: bilateral: diminished, rales, negative: rhonchi, wheezing - Cardiovascular Rhythm: regular Heart Sounds: Present: S1 & S2 - Extremities Extremities: no ischemia, No edema - Abdominal General gastrointestinal: soft, non-tender, non-distended, normal bowel sounds - Integumentary Integumentary: Present: clear, warm - Psychiatric Psychiatric: appropriate mood/affect - Neurologic Neurologic: CNII-XII intact, moves all extremities Results - Labs CBC & Chem 7: 01/30/19 09:43 01/31/19 05:21 Labs: Laboratory Last Values WBC 4.3 K/mm3 (4.5-11.0) L 01/30/19 09:43 RBC 4.44 M/mm3 (3.65-5.03) 01/30/19 09:43 Hgb 14.0 gm/dl (10.1-14.3) 01/30/19 09:43 Hct 41.6 % (30.3-42.9) 01/30/19 09:43 MCV 94 fl (79-97) 01/30/19 09:43 MCH 32 pg (28-32) 01/30/19 09:43 MCHC 34 % (30-34) 01/30/19 09:43 RDW 13.6 % (13.2-15.2) 01/30/19 09:43 Plt Count 137 K/mm3 (140-440) L 01/30/19 09:43 Lymph % (Auto) 27.1 % (13.4-35.0) 01/30/19 09:43 [place] % (Auto) 9.7 % (0.0-7.3) H 01/30/19 09:43 Eos % (Auto) 2.1 % (0.0-4.3) 01/30/19 09:43 Baso % (Auto) 0.5 % (0.0-1.8) 01/30/19 09:43 Lymph # 1.2 K/mm3 (1.2-5.4) 01/30/19 09:43 [place] # 0.4 K/mm3 (0.0-0.8) 01/30/19 09:43 Eos # 0.1 K/mm3 (0.0-0.4) 01/30/19 09:43 Baso # 0.0 K/mm3 (0.0-0.1) 01/30/19 09:43 Seg Neutrophils % 60.6 % (40.0-70.0) 01/30/19 09:43 Seg Neutrophils # 2.6 K/mm3 (1.8-7.7) 01/30/19 09:43 PT 14.4 Sec. (12.2-14.9) 01/27/19 21:21 INR 1.15 (0.87-1.13) H 01/27/19 21:21 APTT 24.8 Sec. (24.2-36.6) 01/27/19 21:21 Sodium 143 mmol/L (137-145) 01/30/19 09:43 Potassium 3.0 mmol/L (3.6-5.0) L 01/30/19 09:43 Chloride 96.0 mmol/L (98-107) L 01/30/19 09:43 Carbon Dioxide 31 mmol/L (22-30) H 01/30/19 09:43 19 mmol/L 01/30/19 09:43 BUN 29 mg/dL (7-17) H 01/30/19 09:43 1.3 mg/dL (0.7-1.2) H 01/30/19 09:43 Estimated GFR 40 ml/min 01/30/19 09:43 22 % 01/30/19 09:43 Glucose 117 mg/dL (65-100) H 01/30/19 09:43 Calcium 9.2 mg/dL (8.4-10.2) 01/30/19 09:43 Magnesium 2.00 mg/dL (1.7-2.3) 01/28/19 03:31 0.70 mg/dL (0.1-1.2) 01/30/19 09:43 AST 23 units/L (5-40) 01/30/19 09:43 ALT 49 units/L (7-56) 01/30/19 09:43 124 units/L (35-129) 01/30/19 09:43 37.0 umol/L (25-60) 01/27/19 21:21 61 units/L (30-135) 01/27/19 21:21 CK-MB (CK-2) 2.6 ng/mL (0.0-4.0) 01/27/19 21:21 CK-MB (CK-2) Rel Index 4.2 (0-4) H 01/27/19 21:21 < 0.010 ng/mL (0.00-0.029) 01/28/19 03:31 NT-Pro-B Natriuret Pep > 29871 pg/mL (0-900) H 01/27/19 23:31 6.8 g/dL (6.3-8.2) 01/30/19 09:43 3.8 g/dL (3.9-5) L 01/30/19 09:43 1.3 % 01/30/19 09:43 TSH 6.020 mlU/mL (0.270-4.200) H 01/27/19 21:21 Free T4 1.16 ng/dL (0.76-1.46) 01/27/19 21:21 Straw (Yellow) 01/28/19 19:30 Clear (Clear) 01/28/19 19:30 6.0 (5.0-7.0) 01/28/19 19:30 Ur Specific [place] 1.008 (1.003-1.030) 01/28/19 19:30 <15 mg/dl mg/dL (Negative) 01/28/19 19:30 Neg mg/dL (Negative) 01/28/19 19:30 Neg mg/dL (Negative) 01/28/19 19:30 Sm (Negative) 01/28/19 19:30 Neg (Negative) 01/28/19 19:30 Neg (Negative) 01/28/19 19:30 < 2.0 mg/dL (<2.0) 01/28/19 19:30 Ur Leukocyte Esterase Neg (Negative) 01/28/19 19:30 < 1.0 /HPF (0.0-6.0) 01/28/19 19:30 1.0 /HPF (0.0-6.0) 01/28/19 19:30 Digoxin 0.8 ng/mL (0.9-2.0) L 01/27/19 21:21 Plasma/Serum Alcohol < 0.01 % (0-0.07) 01/27/19 21:21 Active Medications - Current Medications Current Medications: Generic Name Dose Route Start Last Admin Trade Name Freq PRN Reason Stop Dose Admin Acetaminophen 650 mg 01/27/19 23:26 Tylenol PO Q4H PRN Pain MILD(1-3)/Fever >100.5/VAZQUEZ Albuterol 2.5 mg 01/29/19 21:29 Proventil IH Q4HRT PRN Shortness Of Breath Albuterol/Ipratropium 1 ampul 01/30/19 08:00 01/30/19 08:48 Duoneb *Not For Prn Use* IH 1 ampul TIDRT ANGÉLICA Administration Apixaban 2.5 mg 01/29/19 10:00 01/30/19 09:59 Eliquis PO 2.5 mg Q12HR ANGÉLICA Administration Protocol Aspirin 81 mg 01/28/19 10:00 01/30/19 09:58 Halfprin Ec PO 81 mg QDAY ANGÉLICA Administration Atorvastatin Calcium 40 mg 01/29/19 22:00 01/29/19 22:28 Lipitor PO 40 mg QHS ANGÉLICA Administration Citalopram Hydrobromide 20 mg 01/29/19 10:00 01/30/19 09:58 Celexa PO 20 mg QDAY ANGÉLICA Administration Digoxin 0.125 mg 01/29/19 17:00 01/29/19 17:45 Lanoxin PO 0.125 mg DAILY@1700 [facility] Administration Famotidine 10 mg 01/28/19 10:00 01/30/19 09:58 Pepcid PO 10 mg BID [facility] Administration Levothyroxine Sodium 50 mcg 01/31/19 06:00 Synthroid PO DAILY@0600 [facility] Metoprolol Tartrate 50 mg 01/29/19 14:00 01/30/19 08:43 Lopressor PO 50 mg TID [facility] Administration Morphine Sulfate 2 mg 01/27/19 23:26 Morphine IV Q4H PRN Pain , Severe (7-10) Ondansetron HCl 4 mg 01/27/19 23:26 Zofran IV Q8H PRN Nausea And Vomiting Oxycodone/Acetaminophen 1 tab 01/27/19 23:26 01/30/19 08:20 Percocet 5/325 PO 1 tab Q6H PRN Administration Pain, Moderate (4-6) Sodium Chloride 10 ml 01/28/19 10:00 01/30/19 09:59 Sodium Chloride Flush Syringe 10 Ml IV 10 ml BID ANGÉLICA Administration Sodium Chloride 10 ml 01/27/19 23:26 Sodium Chloride Flush Syringe 10 Ml IV PRN PRN LINE FLUSH Nutrition/Malnutrition Assess - Dietary Evaluation Nutrition/Malnutrition Findings: Nutrition Notes Start: 01/29/19 14:46 Freq: Status: Active Protocol: Document 01/29/19 14:46 TIERA (Rec: 01/29/19 14:48 TIERA [email or web address]) Nutrition Notes Need for Assessment generated from: Low BMI Initial or Follow up Brief Note Subjective/Other Information Pt screened for low BMI. Consumed 50% lunch yesterday. She reports "pretty good" appetite and denies need for ONS at this time. Nutrition Intervention Follow-Up By: 02/02/19 Additional Comments F/U: intakes
--- NOTE | 2019-01-30 12:44 | Progress Note ---
Assessment and Plan HR improving. Cont present cardiac management. The patient has been seen in conjunction with Dr. Nguyen who agrees with the assessment and plan of care. - Patient Problems (1) Atrial fibrillation with RVR Current Visit: Yes Status: Acute (2) BUTCH Current Visit: Yes Status: Acute (3) Chronic HFrEF (heart failure with reduced ejection fraction) Current Visit: Yes Status: Chronic (4) Nonischemic dilated cardiomyopathy Current Visit: Yes Status: Chronic (5) COPD (chronic obstructive pulmonary disease) Current Visit: Yes Status: Acute (6) History of CVA (cerebrovascular accident) Current Visit: Yes Status: Chronic (7) Tobacco use Current Visit: Yes Status: Chronic Subjective Date of service: 01/30/19 Principal diagnosis: acute on chronic systolic and diastolic HF, chest pain, chronic afeb, CKD Interval history: pt resting in bed, no current complaints. in AFib HR 80s on telemetry. Objective Last Vital Signs Temp 98.0 F 01/30/19 08:06 Pulse 94 H 01/30/19 08:59 Resp 16 01/30/19 08:59 BP 123/67 01/30/19 08:06 Pulse Ox 97 01/30/19 08:47 - Physical Examination General: No Apparent Distress HEENT: Positive: PERRL, Normocephaly, Mucus Membranes Moist Neck: Positive: neck supple, trachea midline Cardiac: Positive: irregularly irregular, S1/S2 Lungs: Positive: Decreased Breath Sounds Neuro: Positive: Grossly Intact Abdomen: Positive: Soft. Negative: Tender Skin: Negative: Rash, Wound Musculoskeletal: No Pain Extremities: Absent: edema - Labs and Meds Cardiac Enzymes 01/30/19 Range/Units 09:43 AST 23 (5-40) units/L CBC 01/30/19 Range/Units 09:43 WBC 4.3 L (4.5-11.0) K/mm3 RBC 4.44 (3.65-5.03) M/mm3 Hgb 14.0 (10.1-14.3) gm/dl Hct 41.6 (30.3-42.9) % Plt Count 137 L (140-440) K/mm3 Lymph # 1.2 (1.2-5.4) K/mm3 [place] # 0.4 (0.0-0.8) K/mm3 Eos # 0.1 (0.0-0.4) K/mm3 Baso # 0.0 (0.0-0.1) K/mm3 Comprehensive Metabolic Panel 01/30/19 Range/Units 09:43 Sodium 143 (137-145) mmol/L Potassium 3.0 L (3.6-5.0) mmol/L Chloride 96.0 L (98-107) mmol/L Carbon Dioxide 31 H (22-30) mmol/L BUN 29 H (7-17) mg/dL Creatinine 1.3 H (0.7-1.2) mg/dL Glucose 117 H (65-100) mg/dL Calcium 9.2 (8.4-10.2) mg/dL AST 23 (5-40) units/L ALT 49 (7-56) units/L Alkaline Phosphatase 124 (35-129) units/L Total Protein 6.8 (6.3-8.2) g/dL Albumin 3.8 L (3.9-5) g/dL - Imaging and Cardiology EKG: report reviewed, image reviewed Echo: report reviewed (10/2018 showed EF 20-25%, septal wall hypertrophy, impaired relaxation, LA mildly dilated, RV systolic function mildly reduced, trivial pericardial effusion.) Cardiac cath: report reviewed (07/2017 showed mildly dilated LV, EF 40-45%, minimal coronary irregularities. )
[2019-01-30] MEDS: K-DUR PO SCH ×2 (17:04→21:15)
[2019-01-30] MEDS: LANOXIN PO SCH (17:04)
[2019-01-31] MEDS: SYNTHROID PO SCH (05:26)
[2019-01-31] MEDS: DUONEB *Not for PRN Use IH SCH ×3 (08:32→20:52)
[2019-01-31] MEDS: LOPRESSOR PO SCH ×3 (08:45→21:17)
[2019-01-31] MEDS: HALFPRIN EC PO SCH (09:02)
[2019-01-31] MEDS: ELIQUIS PO SCH ×2 (09:02→21:17)
[2019-01-31] MEDS: celeXA PO SCH (09:02)
[2019-01-31] MEDS: SODIUM CHLORIDE FLUSH SYRINGE 10 ML IV SCH ×2 (09:03→21:17)
[2019-01-31] MEDS: PEPCID PO SCH ×2 (09:03→21:17)
--- NOTE | 2019-01-31 09:06 | Progress Note ---
Assessment and Plan Assessment and plan: Patient is a 73-year-old female with history of CHF and atrial fibrillation who presented to the ED on account of few hours history of shortness of breath at rest and on mild exertion. She has associated chest pressure, chills without fever and leg swelling. She denies palpitation, diaphoresis, cough, orthopnea, PND, headaches, nausea, vomiting, lightheadedness, syncope or loss of consciousness. --Hypokalemia: Corrected ,Ac monitor electrolytes --A. fib with rapid ventricular rate; normal rate controlled Continue digoxin, metoprolol,Eliquis --Mild hypothyroidism; low-dose Synthroid --Acute on chronic combined systolic and diastolic heart failure Continue anti-failure medications Strict I's and O's, daily weights EF of 20-25% with dilated cardiomyopathy --Chest pressure Serial cardiac enzymes negative Cardiology following, patient had cardiac In 2017 --Transaminitis Probably liver congestion , resolved --Hypertension -Controlled --History of COPD -No acute exacerbation -On nebulizer breathing treatments --History of CAD -Stable --CKD stage III -Renal functional level at baseline HLD -Continue statin History of tobacco abuse -Patient counseled on cessation DVT prophylaxis: patient is on Eliquis Disposition: Patient will be placed in inpatient status with plan for discharge when medically stable History Interval history: Patient seen and examined medical records reviewed No new events reported by nursing staff Pains of mild shortness of breath Vital signs noted Hospitalist Physical - Constitutional Vitals: Temp Pulse Resp BP Pulse Ox 97.7 F 76 20 143/82 98 01/31/19 08:03 01/31/19 08:56 01/31/19 08:56 01/31/19 08:45 01/31/19 08:58 General appearance: Present: no acute distress, well-nourished - EENT Eyes: Present: PERRL, EOM intact - Neck Neck: Present: supple, normal ROM - Respiratory Respiratory effort: normal Respiratory: bilateral: diminished, rales, negative: rhonchi, wheezing - Cardiovascular Rhythm: regular Heart Sounds: Present: S1 & S2 - Extremities Extremities: no ischemia, No edema - Abdominal General gastrointestinal: soft, non-tender, non-distended, normal bowel sounds - Integumentary Integumentary: Present: clear, warm - Psychiatric Psychiatric: appropriate mood/affect, cooperative - Neurologic Neurologic: CNII-XII intact, moves all extremities Results - Labs CBC & Chem 7: 01/30/19 09:43 01/31/19 05:21 Labs: Laboratory Last Values WBC 4.3 K/mm3 (4.5-11.0) L 01/30/19 09:43 RBC 4.44 M/mm3 (3.65-5.03) 01/30/19 09:43 Hgb 14.0 gm/dl (10.1-14.3) 01/30/19 09:43 Hct 41.6 % (30.3-42.9) 01/30/19 09:43 MCV 94 fl (79-97) 01/30/19 09:43 MCH 32 pg (28-32) 01/30/19 09:43 MCHC 34 % (30-34) 01/30/19 09:43 RDW 13.6 % (13.2-15.2) 01/30/19 09:43 Plt Count 137 K/mm3 (140-440) L 01/30/19 09:43 Lymph % (Auto) 27.1 % (13.4-35.0) 01/30/19 09:43 [place] % (Auto) 9.7 % (0.0-7.3) H 01/30/19 09:43 Eos % (Auto) 2.1 % (0.0-4.3) 01/30/19 09:43 Baso % (Auto) 0.5 % (0.0-1.8) 01/30/19 09:43 Lymph # 1.2 K/mm3 (1.2-5.4) 01/30/19 09:43 [place] # 0.4 K/mm3 (0.0-0.8) 01/30/19 09:43 Eos # 0.1 K/mm3 (0.0-0.4) 01/30/19 09:43 Baso # 0.0 K/mm3 (0.0-0.1) 01/30/19 09:43 Seg Neutrophils % 60.6 % (40.0-70.0) 01/30/19 09:43 Seg Neutrophils # 2.6 K/mm3 (1.8-7.7) 01/30/19 09:43 PT 14.4 Sec. (12.2-14.9) 01/27/19 21:21 INR 1.15 (0.87-1.13) H 01/27/19 21:21 APTT 24.8 Sec. (24.2-36.6) 01/27/19 21:21 Sodium 143 mmol/L (137-145) 01/31/19 05:21 Potassium 5.0 mmol/L (3.6-5.0) D 01/31/19 05:21 Chloride 100.9 mmol/L (98-107) 01/31/19 05:21 Carbon Dioxide 32 mmol/L (22-30) H 01/31/19 05:21 15 mmol/L 01/31/19 05:21 BUN 29 mg/dL (7-17) H 01/31/19 05:21 1.3 mg/dL (0.7-1.2) H 01/31/19 05:21 Estimated GFR 40 ml/min 01/31/19 05:21 22 % 01/31/19 05:21 Glucose 85 mg/dL (65-100) 01/31/19 05:21 Calcium 9.0 mg/dL (8.4-10.2) 01/31/19 05:21 Magnesium 2.20 mg/dL (1.7-2.3) 01/31/19 05:21 0.70 mg/dL (0.1-1.2) 01/30/19 09:43 AST 23 units/L (5-40) 01/30/19 09:43 ALT 49 units/L (7-56) 01/30/19 09:43 124 units/L (35-129) 01/30/19 09:43 37.0 umol/L (25-60) 01/27/19 21:21 61 units/L (30-135) 01/27/19 21:21 CK-MB (CK-2) 2.6 ng/mL (0.0-4.0) 01/27/19 21:21 CK-MB (CK-2) Rel Index 4.2 (0-4) H 01/27/19 21:21 < 0.010 ng/mL (0.00-0.029) 01/28/19 03:31 NT-Pro-B Natriuret Pep > 87973 pg/mL (0-900) H 01/27/19 23:31 6.8 g/dL (6.3-8.2) 01/30/19 09:43 3.8 g/dL (3.9-5) L 01/30/19 09:43 1.3 % 01/30/19 09:43 TSH 6.020 mlU/mL (0.270-4.200) H 01/27/19 21:21 Free T4 1.16 ng/dL (0.76-1.46) 01/27/19 21:21 Straw (Yellow) 01/28/19 19:30 Clear (Clear) 01/28/19 19:30 6.0 (5.0-7.0) 01/28/19 19:30 Ur Specific [place] 1.008 (1.003-1.030) 01/28/19 19:30 <15 mg/dl mg/dL (Negative) 01/28/19 19:30 Neg mg/dL (Negative) 01/28/19 19:30 Neg mg/dL (Negative) 01/28/19 19:30 Sm (Negative) 01/28/19 19:30 Neg (Negative) 01/28/19 19:30 Neg (Negative) 01/28/19 19:30 < 2.0 mg/dL (<2.0) 01/28/19 19:30 Ur Leukocyte Esterase Neg (Negative) 01/28/19 19:30 < 1.0 /HPF (0.0-6.0) 01/28/19 19:30 1.0 /HPF (0.0-6.0) 01/28/19 19:30 Digoxin 0.8 ng/mL (0.9-2.0) L 01/27/19 21:21 Plasma/Serum Alcohol < 0.01 % (0-0.07) 01/27/19 21:21 Active Medications - Current Medications Current Medications: Generic Name Dose Route Start Last Admin Trade Name Freq PRN Reason Stop Dose Admin Acetaminophen 650 mg 01/27/19 23:26 Tylenol PO Q4H PRN Pain MILD(1-3)/Fever >100.5/VAZQUEZ Albuterol 2.5 mg 01/29/19 21:29 Proventil IH Q4HRT PRN Shortness Of Breath Albuterol/Ipratropium 1 ampul 01/30/19 08:00 01/31/19 08:32 Duoneb *Not For Prn Use* IH 1 ampul TIDRT ANGÉLICA Administration Apixaban 2.5 mg 01/29/19 10:00 01/31/19 09:02 Eliquis PO 2.5 mg Q12HR ANGÉLICA Administration Protocol Aspirin 81 mg 01/28/19 10:00 01/31/19 09:02 Halfprin Ec PO 81 mg QDAY ANGÉLICA Administration Atorvastatin Calcium 40 mg 01/29/19 22:00 01/30/19 21:14 Lipitor PO 40 mg QHS ANGÉLICA Administration Citalopram Hydrobromide 20 mg 01/29/19 10:00 01/31/19 09:02 Celexa PO 20 mg QDAY ANGÉLICA Administration Digoxin 0.125 mg 01/29/19 17:00 01/30/19 17:04 Lanoxin PO 0.125 mg DAILY@1700 ANGÉLICA Administration Famotidine 10 mg 01/28/19 10:00 01/31/19 09:03 Pepcid PO 10 mg BID ANGÉLICA Administration Levothyroxine Sodium 50 mcg 01/31/19 06:00 01/31/19 05:26 Synthroid PO 50 mcg DAILY@0600 ANGÉLICA Administration Metoprolol Tartrate 50 mg 01/29/19 14:00 01/31/19 08:45 Lopressor PO 50 mg TID ANGÉLICA Administration Morphine Sulfate 2 mg 01/27/19 23:26 Morphine IV Q4H PRN Pain , Severe (7-10) Ondansetron HCl 4 mg 01/27/19 23:26 Zofran IV Q8H PRN Nausea And Vomiting Oxycodone/Acetaminophen 1 tab 01/27/19 23:26 01/30/19 18:20 Percocet 5/325 PO 1 tab Q6H PRN Administration Pain, Moderate (4-6) Sodium Chloride 10 ml 01/28/19 10:00 01/31/19 09:03 Sodium Chloride Flush Syringe 10 Ml IV 10 ml BID ANGÉLICA Administration Sodium Chloride 10 ml 01/27/19 23:26 Sodium Chloride Flush Syringe 10 Ml IV PRN PRN LINE FLUSH Nutrition/Malnutrition Assess - Dietary Evaluation Nutrition/Malnutrition Findings: Nutrition Notes Start: 01/29/19 14:46 Freq: Status: Active Protocol: Document 01/29/19 14:46 NHALL (Rec: 01/29/19 14:48 TIERA CHAVEZ-FNS [email or web address]) Nutrition Notes Need for Assessment generated from: Low BMI Initial or Follow up Brief Note Subjective/Other Information Pt screened for low BMI. Consumed 50% lunch yesterday. She reports "pretty good" appetite and denies need for ONS at this time. Nutrition Intervention Follow-Up By: 02/02/19 Additional Comments F/U: intakes
--- NOTE | 2019-01-31 11:21 | Progress Note ---
Assessment and Plan Currently stable cardiac status. Cont present cardiac management. Pt may discharge from cardiology standpoint. Recommend pt follow up with Dr. Nguyen within 1-2 weeks of hospital discharge ([phone]). The patient has been seen in conjunction with Dr. Gina Benjamin who agrees with the assessment and plan of care. - Patient Problems (1) Atrial fibrillation with RVR Current Visit: Yes Status: Acute (2) BUTCH Current Visit: Yes Status: Acute (3) Chronic HFrEF (heart failure with reduced ejection fraction) Current Visit: Yes Status: Chronic (4) Nonischemic dilated cardiomyopathy Current Visit: Yes Status: Chronic (5) COPD (chronic obstructive pulmonary disease) Current Visit: Yes Status: Acute (6) History of CVA (cerebrovascular accident) Current Visit: Yes Status: Chronic (7) Tobacco use Current Visit: Yes Status: Chronic Subjective Date of service: 01/31/19 Principal diagnosis: acute on chronic systolic and diastolic HF, chest pain, chronic afeb, CKD Interval history: pt resting in bed, no current complaints. in AFib HR 70s- 80s on telemetry. Objective Last Vital Signs Temp 97.7 F 01/31/19 08:03 Pulse 76 01/31/19 08:56 Resp 20 01/31/19 08:56 BP 143/82 01/31/19 08:45 Pulse Ox 98 01/31/19 08:58 - Physical Examination General: No Apparent Distress HEENT: Positive: PERRL, Normocephaly, Mucus Membranes Moist Neck: Positive: neck supple, trachea midline Cardiac: Positive: irregularly irregular, S1/S2 Neuro: Positive: Grossly Intact Abdomen: Positive: Soft. Negative: Tender Skin: Negative: Rash, Wound Musculoskeletal: No Pain Extremities: Absent: edema - Labs and Meds Comprehensive Metabolic Panel 01/31/19 Range/Units 05:21 Sodium 143 (137-145) mmol/L Potassium 5.0 D (3.6-5.0) mmol/L Chloride 100.9 (98-107) mmol/L Carbon Dioxide 32 H (22-30) mmol/L BUN 29 H (7-17) mg/dL Creatinine 1.3 H (0.7-1.2) mg/dL Glucose 85 (65-100) mg/dL Calcium 9.0 (8.4-10.2) mg/dL - Imaging and Cardiology EKG: report reviewed, image reviewed Echo: report reviewed (10/2018 showed EF 20-25%, septal wall hypertrophy, impaired relaxation, LA mildly dilated, RV systolic function mildly reduced, trivial pericardial effusion.) Cardiac cath: report reviewed (07/2017 showed mildly dilated LV, EF 40-45%, minimal coronary irregularities. )
[2019-01-31] MEDS: LANOXIN PO SCH (16:10)
[2019-02-01] MEDS: SYNTHROID PO SCH (05:09)
--- NOTE | 2019-02-01 08:19 | Discharge Summary ---
Providers - Providers Date of Admission: 01/28/19 03:35 Date of discharge: 02/01/19 Attending physician: AMANDO ARNDT 01/29/19 08:54 Consult to Physician [CONS] Routine Comment: Consulting Provider: BOLA MADRID Physician Instructions: Reason For Exam: chf, monik Primary care physician: RADHA ROBLES Hospitalization Reason for admission: Shortness of breath/chest pressure/Afib with RVR Condition: Stable Pertinent studies: CXR : small left pl effusion Hospital course: 73-year-old female with history of CHF and atrial fibrillation who presented to the ED on account of few hours history of shortness of breath at rest and on mild exertion, associated chest pressure, chills without fever and leg swelling. She denies palpitation, diaphoresis, cough, orthopnea, PND, headaches, nausea, vomiting, lightheadedness, syncope or loss of consciousness.Evaluated,noted to be in afib with rapid ventricular rate as well as in acute on chronic systolic CHF. Managed appropriately with betablockers,digoxin and Eliquis as well as antifailure meds. Patient was evaluated by supervisor cd area and medications optimised. Symptoms significantly improved.Today patient comfortable,no new complaints Vital signs stable,Physical exam at discharge is stable. Discharge Diagnosis: --A. fib with rapid ventricular rate; normal rate controlled Continue digoxin, metoprolol,Eliquis --Acute on chronic combined systolic and diastolic heart failure anti-failure medications, Strict I's and O's, daily weights EF of 20-25% with dilated cardiomyopathy --Chest pressure; resolved, Serial cardiac enzymes negative Cardiology evaluated, patient had cardiac In 2017 --Hypokalemia: Corrected --Transaminitis: Probably liver congestion , resolved --Hypertension: Controlled --Mild hypothyroidism; low-dose Synthroid --History of COPD: stable --History of CAD --CKD stage III :Renal function at baseline --HLD: on statin --History of tobacco abuse: Patient counseled on cessation --DVT prophylaxis: patient is on Eliquis Disposition: Stable to discharge home Disposition: TO HOME OR SELFCARE Time spent for discharge: 32 min Core Measure Documentation - Palliative Care Palliative Care/ Comfort Measures: Not Applicable - Core Measures Any of the following diagnoses?: heart failure - Heart Failure Discharge Requirements JUAN/ARB for LVSD if EF <40%: Yes Beta frederick at discharge: Yes Exam - Constitutional Vitals: Temp Pulse Resp BP Pulse Ox 98.1 F 82 18 152/78 99 01/31/19 23:41 02/01/19 04:00 01/31/19 23:41 01/31/19 23:41 01/31/19 23:41 General appearance: Present: no acute distress, cachectic, disheveled - EENT Eyes: Present: PERRL, EOM intact - Neck Neck: Present: supple, normal ROM - Respiratory Respiratory effort: normal Respiratory: bilateral: diminished, negative: rales, rhonchi, wheezing - Cardiovascular Rhythm: regular Heart Sounds: Present: S1 & S2 - Extremities Extremities: no ischemia, No edema - Abdominal General gastrointestinal: Present: soft, non-tender, non-distended, normal bowel sounds - Integumentary Integumentary: Present: clear, warm - Musculoskeletal Musculoskeletal: strength equal bilaterally, generalized weakness - Psychiatric Psychiatric: appropriate mood/affect, cooperative - Neurologic Neurologic: CNII-XII intact, moves all extremities Plan Activity: advance as tolerated, fall precautions Diet: other (cardiac diet) Special Instructions: smoking cessation Additional Instructions: Fall precautions. Smoking cessation. If you have chest pain or shortness of breath contacting MD or go to emergency room Follow up with: RADHA ROBLES MD [Primary Care Provider] - 3-5 Days BOLA MADRID MD [Staff Physician] - 7 Days
[2019-02-01] MEDS: LOPRESSOR PO SCH ×2 (08:34→14:42)
[2019-02-01] MEDS ORDERED: CLARITIN-D 24HR PO SCH (10:00)
[2019-02-01] MEDS ORDERED: LEVAQUIN PO SCH (10:00)
[2019-02-01] MEDS: celeXA PO SCH (10:59)
[2019-02-01] MEDS: ELIQUIS PO SCH (11:01)
[2019-02-01] MEDS: HALFPRIN EC PO SCH (11:01)
[2019-02-01] MEDS: PEPCID PO SCH (11:01)
[2019-02-01] MEDS: SODIUM CHLORIDE FLUSH SYRINGE 10 ML IV SCH (11:02)
[2019-02-01] MEDS ORDERED: TESSALON PERLES PO SCH (14:00)
[2019-02-01 14:43] VITALS: BP 140/65
== END 2019-02-01 16:30 | disposition home or self-care (01) | DRG 291 ==
LOC: ED 20:27 → 4A 01-28 03:35
PROVIDERS: ADMIT Internal Medicine; ATTEND Internal Medicine
DX: I13.0 Hypertensive heart and chronic kidney disease with heart failure and stage 1 through stage 4 chronic kidney disease, or unspecified chronic kidney disease (principal); I50.43 Acute on chronic combined systolic (congestive) and diastolic (congestive) heart failure; N17.9 Acute kidney failure, unspecified; I42.0 Dilated cardiomyopathy; N18.3 Chronic kidney disease, stage 3 (moderate); I48.2 Chronic atrial fibrillation; I25.2 Old myocardial infarction; J44.9 Chronic obstructive pulmonary disease, unspecified; F17.210 Nicotine dependence, cigarettes, uncomplicated; I25.10 Atherosclerotic heart disease of native coronary artery without angina pectoris; E78.5 Hyperlipidemia, unspecified; I44.7 Left bundle-branch block, unspecified; E87.6 Hypokalemia; E03.9 Hypothyroidism, unspecified; Z79.01 Long term (current) use of anticoagulants
CPT/HCPCS: 36415; 71045; 80048; 80053; 80162; 80320; 81001; 82140; 82550; 82553; 83735; 83880; 84439; 84443; 84484; 85025; 85610; 85730; 93005; 93010; 94640; 94760; 99406; G0378; A9270-GY; G0480; J1940

== ENCOUNTER 2019-02-11 17:41 | Inpatient (IN) | payer MEDICARE ==
[2019-02-11] MEDS ORDERED: XOPENEX IH ONE (18:51)
--- NOTE | 2019-02-11 19:00 | Emergency Department Report ---
HPI - General Chief Complaint: Weakness Time Seen by Provider: 02/11/19 18:39 - HPI HPI: Room 6 The patient is a 73-year-old female presenting with chief complaint of shortness of breath. The patient states she's had constant shortness of breath for one week. Patient admits to an occasional cough is occasionally productive. Patient denies chest pain, nausea/vomiting or fever. Location: Lungs Duration: [See above] Quality: [See above] Severity: [See above] Modifying factors: [see above] Context: [see above] Mode of transportation: [not driving] ED Past Medical Hx - Past Medical History Previous Medical History?: Yes Hx Hypertension: Yes Hx Heart Attack/AMI: Yes Hx Congestive Heart Failure: Yes Hx COPD: Yes Additional medical history: pneumonia. Atrial fibrillation. Dilated cardiomyopathy - Surgical History Past Surgical History?: Yes Hx Breast Surgery: Yes Additional Surgical History: breast surgery - Family History Family history: no significant - Social History Smoking Status: Former Smoker (none 1 week) Substance Use Type: None - Medications Home Medications: Home Medications Medication Instructions Recorded Confirmed Last Taken Type Citalopram [Celexa] 20 mg PO QDAY #30 tablet 10/25/18 01/28/19 01/11/19 Rx Rosuvastatin Calcium [Crestor] 20 mg PO DAILY #30 tablet 10/25/18 01/28/19 01/11/19 Rx Apixaban [Eliquis] 2.5 mg PO Q12HR #60 tablet 01/21/19 01/28/19 01/08/19 08:00 Rx AtorvaSTATin [Lipitor] 40 mg PO QHS #30 tablet 01/21/19 01/28/19 01/08/19 08:00 Rx Digoxin [Lanoxin] 0.125 mg PO DAILY@1700 #1 tablet 01/21/19 01/28/19 01/08/19 08:00 Rx Furosemide [Lasix TAB] 20 mg PO QDAY #10 tablet 01/21/19 01/28/19 01/08/19 08:00 Rx Metoprolol [Lopressor TAB] 50 mg PO BID #60 tablet 01/21/19 01/28/19 01/08/19 08:00 Rx Aspirin EC 81 mg PO QDAY #30 tablet 02/01/19 Unknown Rx Benzonatate [Tessalon Perles] 100 mg PO Q8HR #21 capsule 02/01/19 Unknown Rx Levothyroxine [Synthroid] 50 mcg PO DAILY@0600 #30 tablet 02/01/19 Unknown Rx Lisinopril [Zestril TAB] 2.5 mg PO QDAY #30 tab 02/01/19 Unknown Rx Loratadine/Pseudoephedrine 1 each PO Q24HR #10 tablet 02/01/19 Unknown Rx [Claritin-D 24HR] Nicotine [Habitrol] 14 mg TD DAILY #30 patch 02/01/19 Unknown Rx levoFLOXacin [Levaquin TAB] 500 mg PO Q24HR #4 tablet 02/01/19 Unknown Rx ED Review of Systems ROS: Stated complaint: WEAKNESS Other details as noted in HPI Constitutional: denies: fever Eyes: denies: eye pain ENT: denies: throat pain Respiratory: cough, shortness of breath Cardiovascular: denies: chest pain Endocrine: no symptoms reported Gastrointestinal: denies: nausea, vomiting Genitourinary: denies: dysuria Musculoskeletal: denies: back pain Neurological: denies: headache Physical Exam - Physical Exam Vital Signs: Vital Signs 02/11/19 18:13 Temperature 98.3 F Pulse Rate 88 Respiratory 20 Rate Blood Pressure 100/72 O2 Sat by Pulse 98 Oximetry Physical Exam: GENERAL: The patient is well-developed well-nourished female lying on stretcher not appearing to be in acute distress. [] HEENT: Normocephalic. Atraumatic. Extraocular motions are intact. Patient has moist mucous membranes. NECK: Supple. Trachea midline CHEST/LUNGS: Clear to auscultation. There is no respiratory distress noted. HEART/CARDIOVASCULAR: Regular. There is no tachycardia. There is no gallop rub or murmur. ABDOMEN: Abdomen is soft, nontender. Patient has normal bowel sounds. There is no abdominal distention. SKIN: There is no rash. There is no edema. There is no diaphoresis. NEURO: The patient is awake, alert, and oriented. The patient is cooperative. The patient has normal speech MUSCULOSKELETAL: There is no evidence of acute injury. ED Course Vital Signs 02/11/19 18:13 Temperature 98.3 F Pulse Rate 88 Respiratory 20 Rate Blood Pressure 100/72 O2 Sat by Pulse 98 Oximetry ED Medical Decision Making - Lab Data Result diagrams: 02/11/19 19:05 02/11/19 19:05 Laboratory Tests 02/11/19 02/11/19 02/11/19 19:05 19:05 19:05 WBC 4.2 L RBC 4.08 Hgb 13.3 Hct 39.8 MCV 98 H MCH 33 H MCHC 33 RDW 16.1 H Plt Count 138 L Lymph % (Auto) 34.4 [place] % (Auto) 12.6 H Eos % (Auto) 1.1 Baso % (Auto) 0.9 Lymph # 1.5 [place] # 0.5 Eos # 0.0 Baso # 0.0 Seg Neutrophils % 51.0 Seg Neutrophils # 2.2 PT 16.1 H INR 1.33 H APTT 25.2 D-Dimer 356.91 H Sodium 141 Potassium 5.0 Chloride 108.6 H Carbon Dioxide 22 Anion Gap 15 BUN 31 H Creatinine 1.3 H Estimated GFR 40 BUN/Creatinine Ratio 24 Glucose 128 H Calcium 9.0 Total Bilirubin 0.50 AST 52 H ALT 83 H Alkaline Phosphatase 105 Total Creatine Kinase 79 CK-MB (CK-2) 5.0 H CK-MB (CK-2) Rel Index 6.3 H Troponin T Total Protein 6.3 Albumin 3.6 L Albumin/Globulin Ratio 1.3 TSH Free T4 Digoxin 02/11/19 02/11/19 02/11/19 19:05 19:05 19:05 WBC RBC Hgb Hct MCV MCH MCHC RDW Plt Count Lymph % (Auto) [place] % (Auto) Eos % (Auto) Baso % (Auto) Lymph # [place] # Eos # Baso # Seg Neutrophils % Seg Neutrophils # PT INR APTT D-Dimer Sodium Potassium Chloride Carbon Dioxide Anion Gap BUN Creatinine Estimated GFR BUN/Creatinine Ratio Glucose Calcium Total Bilirubin AST ALT Alkaline Phosphatase Total Creatine Kinase CK-MB (CK-2) CK-MB (CK-2) Rel Index Troponin T < 0.010 Total Protein Albumin Albumin/Globulin Ratio TSH 5.530 H Free T4 1.55 H Digoxin 0.3 L - EKG Data -: EKG Interpreted by Me EKG shows normal: sinus rhythm Rate: normal - EKG Data When compared to previous EKG there are: no significant change Interpretation: nonspecific ST-T wave gala - Radiology Data Radiology results: report reviewed (chest x-ray, VQ scan), image reviewed (chest x-ray, VQ scan) [facility] [address] [place] [address] XRay Report Signed Patient: JAYCEE MALDONADO MR#: [id number] 76 : 1945 Acct:[id number] Age/Sex: 73 / F ADM Date: 02/11/19 Loc: ED Attending Dr: Ordering Physician: REED SEVILLA MD Date of Service: 02/11/19 Procedure(s): XR chest 1V ap Accession Number(s): [id number] cc: REED SEVILLA MD Fluoro Time In Minutes: CHEST 1 VIEW 7:24 PM INDICATION / CLINICAL INFORMATION: Shortness of breath for one week. COMPARISON: 01/27/2019. FINDINGS: SUPPORT DEVICES: None. HEART / MEDIASTINUM: Cardiomegaly and pulmonary vascular congestion are again identified. LUNGS / PLEURA: Mild diffuse interstitial edema has not changed. Trace bilateral pleural effusions appear new or are larger. No pneumothorax. ADDITIONAL FINDINGS: No significant additional findings. IMPRESSION: 1. Mild persistent or recurrent congestive heart failure. Signer Name: Yong Hernández MD Signed: 02/11/2019 8:09 PM Workstation Name: [id number] Transcribed By: RT Dictated By: Yong Hernández MD Electronically Authenticated By: Yong Hernández MD Signed Date/Time: 02/11/192008 DD/ 06 TD/TT: [address] [address] Nuclear Medicine Report Signed Patient: JAYCEE MALDONADO MR#: [id number] 76 : 1945 Acct:[id number] Age/Sex: 73 / F ADM Date: 02/11/19 Loc: ED Attending Dr: Ordering Physician: REED SEVILLA MD Date of Service: 02/11/19 Procedure(s): NM lung scan perf/vent Accession Number(s): [id number] cc: REED SEVILLA MD V/Q Scan HISTORY: shortness of breath. TECHNIQUE: Patient was given 10.1 mCi of xenon-133 and 4.5 mCi of technetium MAA. COMPARISON: Chest x-ray from today FINDINGS: Chest x-ray shows cardiomegaly which accounts for relative photopenia in the left lung base. On the VQ scan, there is no significant mismatch between ventilation and perfusion imaging. IMPRESSION: Low probability for PTE. Signer Name: Taqueria Park MD Signed: 02/11/2019 10:17 PM Workstation Name: [id number] Transcribed By: VIKI Dictated By: Taqueria Park MD Electronically Authenticated By: Taqueria Park MD Signed Date/Time: 02/11/192216 DD/ 15 TD/TT: - Differential Diagnosis bronchitis, pneumonia, CHF exacerbation, PE Critical care attestation.: If time is entered above; I have spent that time in minutes in the direct care of this critically ill patient, excluding procedure time. ED Disposition Clinical Impression: Shortness of breath, Atrial fibrillation with RVR, CHF exacerbation Disposition: OP ADMIT IP TO THIS HOSP Is pt being admited?: Yes Does the pt Need Aspirin: Yes Condition: Fair Referrals: [facility] MD KENNY [Primary Care Provider] - 3-5 Days Time of Disposition: 23:28 (hospitalist paged (Dr. Sophie Thibodeaux))
[2019-02-11 19:24] LABS: Basophils % (Auto) 0.9 % (0.0-1.8); Eosinophils % (Auto) 1.1 % (0.0-4.3); Hematocrit 39.8 % (30.3-42.9); Hemoglobin 13.3 gm/dl (10.1-14.3); Lymphocytes # (Auto) 1.5 K/mm3 (1.2-5.4); Lymphocytes % (Auto) 34.4 % (13.4-35.0); Mean Corpuscular HGB Conc 33 % (30-34); Mean Corpuscular Volume 98 fl (79-97); Monocytes # (Auto) 0.5 K/mm3 (0.0-0.8); Monocytes % (Auto) 12.6 % (0.0-7.3); Platelet Count 138 K/mm3 (140-440); Red Blood Count 4.08 M/mm3 (3.65-5.03); Red Cell Distribution Width 16.1 % (13.2-15.2)
[2019-02-11 19:41] LABS: INR 1.33 (0.87-1.13)
[2019-02-11 19:42] LABS: Partial Thromboplastin Time 25.2 Sec. (24.2-36.6)
[2019-02-11 19:51] LABS: Albumin 3.6 g/dL (3.9-5)
[2019-02-11 19:57] LABS: Free T4 (Free Thyroxine) 1.55 ng/dL (0.76-1.46)
--- NOTE | 2019-02-11 20:13 | XRay Report ---
CHEST 1 VIEW 7:24 PM INDICATION / CLINICAL INFORMATION: Shortness of breath for one week. COMPARISON: 01/27/2019. FINDINGS: SUPPORT DEVICES: None. HEART / MEDIASTINUM: Cardiomegaly and pulmonary vascular congestion are again identified. LUNGS / PLEURA: Mild diffuse interstitial edema has not changed. Trace bilateral pleural effusions ap pear new or are larger. No pneumothorax. ADDITIONAL FINDINGS: No significant additional findings. IMPRESSION: 1. Mild persistent or recurrent congestive heart failure. Signer Name: Yong Hernández MD Signed: 02/11/2019 8:09 PM Workstation Name: [id number]
--- NOTE | 2019-02-11 22:22 | Nuclear Medicine Report ---
V/Q Scan HISTORY: shortness of breath. TECHNIQUE: Patient was given 10.1 mCi of xenon-133 and 4.5 mCi of technetium MAA. COMPARISON: Chest x-ray from today FINDINGS: Chest x-ray shows cardiomegaly which accounts for relative photopenia in the left lung bas e. On the VQ scan, there is no significant mismatch between ventilation and perfusion imaging. IMPRESSION: Low probability for PTE. Signer Name: Taqueria Park MD Signed: 02/11/2019 10:17 PM Workstation Name: [id number]
[2019-02-11] MEDS ORDERED: LASIX IV ONE (23:15)
[2019-02-11] MEDS ORDERED: ASPIRIN PO ONE (23:29)
--- NOTE | 2019-02-11 23:53 | History and Physical Report ---
History of Present Illness Date of examination: 02/11/19 History of present illness: 73 -year-old woman with history of CHF, coronary artery disease, A. fib, depression, COPD, hypertension,comes to the emergency room with complaints of shortness of breath 1 week, descending exertion, orthopnea, unable to sleep Review of systems Constitutional: no weight loss, chills, fever Ears, eyes, nose, mouth and throat: no nasal congestion, no nasal discharge, no sinus pressure, no vision change, no red eye. Neck: No neck pain or rigidity. Cardiovascular: no palpitations, no chest pain Respiratory: no cough Gastrointestinal: no hematochezia, abdominal pain Genitourinary : no frequency , no hematuria Musculoskeletal: no joint swelling or muscle ache Integumentary: no rash, no pruritis Neurological: no parathesias, no focal weakness Endocrine: no cold or heat intolerance, no polyuria or polydipsia Hematologic/Lymphatic: no easy bruising, no easy bleeding, no gland swelling Allergic/Immunologic: no urticaria, no angioedema. PAST MEDICAL HISTORY:coronary artery disease, A. fib, COPD, hypertension, CHF, depression PAST SURGICAL HISTORY: cyst removed from breast SOCIAL HISTORY: Denies alcohol, drugs, quit smoking FAMILY HISTORY: Hypertension Medications and Allergies Allergies Allergy/AdvReac Type Severity Reaction Status Date / Time No Known Allergies Allergy Verified 10/19/18 14:21 Home Medications Medication Instructions Recorded Confirmed Last Taken Type Apixaban [Eliquis] 5 mg PO HS 02/11/19 02/11/19 Unknown History AtorvaSTATin [Lipitor] 40 mg PO QHS 02/11/19 02/11/19 Unknown History Benzonatate [Tessalon Perles] 100 mg PO Q8HR 02/11/19 02/11/19 Unknown History Citalopram [celeXA] 20 mg PO QDAY 02/11/19 02/11/19 Unknown History Levothyroxine [Synthroid] 0.5 mg PO DAILY 02/11/19 02/11/19 Unknown History Lisinopril [Zestril TAB] 2.5 mg PO QDAY 02/11/19 02/11/19 Unknown History Metoprolol [Lopressor TAB] 50 mg PO BID 02/11/19 02/11/19 Unknown History levoFLOXacin [Levaquin TAB] 500 mg PO QDAY 02/11/19 02/11/19 Unknown History Exam - Physical Exam Narrative exam: General Apperance: The patient lying in bed, breathing comfortable HEENT: Normocephalic, atraumatic. Pupils equally round and reactive to light, EOMI, no sclericterus or JVD or thyromegaly or nodule. , no carotid bruit, mucous membranes moist, no exudate or erythema Heart: S1-S2, irregular rhythm Lungs: Crackles bilaterally, breathing comfortable Abdomen: Positive bowel sounds, soft, nontender, nondistended, no organomegaly Extremities: + edema cyanosis clubbing Skin: no rash, nodule, warm and dry Neuro: cranial nerves 2-12 intact, speech is fluent, motor/sensory intact - Constitutional Vitals: Temp Pulse Resp BP Pulse Ox 98.1 F 96 H 30 H 125/95 97 02/11/19 19:05 02/11/19 23:00 02/11/19 23:00 02/11/19 23:00 02/11/19 23:00 Results - Labs CBC & Chem 7: 02/11/19 19:05 02/11/19 19:05 Labs: Abnormal lab results 02/11/19 02/11/19 02/11/19 Range/Units 19:05 19:05 19:05 WBC 4.2 L (4.5-11.0) K/mm3 MCV 98 H (79-97) fl MCH 33 H (28-32) pg RDW 16.1 H (13.2-15.2) % Plt Count 138 L (140-440) K/mm3 [place] % (Auto) 12.6 H (0.0-7.3) % PT 16.1 H (12.2-14.9) Sec. INR 1.33 H (0.87-1.13) D-Dimer 356.91 H (0-234) ng/mlDDU Chloride 108.6 H (98-107) mmol/L BUN 31 H (7-17) mg/dL Creatinine 1.3 H (0.7-1.2) mg/dL Glucose 128 H (65-100) mg/dL AST 52 H (5-40) units/L ALT 83 H (7-56) units/L CK-MB (CK-2) 5.0 H (0.0-4.0) ng/mL CK-MB (CK-2) Rel Index 6.3 H (0-4) Albumin 3.6 L (3.9-5) g/dL TSH (0.270-4.200) mlU/mL Free T4 (0.76-1.46) ng/dL Digoxin (0.9-2.0) ng/mL 02/11/19 02/11/19 Range/Units 19:05 19:05 WBC (4.5-11.0) K/mm3 MCV (79-97) fl MCH (28-32) pg RDW (13.2-15.2) % Plt Count (140-440) K/mm3 [place] % (Auto) (0.0-7.3) % PT (12.2-14.9) Sec. INR (0.87-1.13) D-Dimer (0-234) ng/mlDDU Chloride (98-107) mmol/L BUN (7-17) mg/dL Creatinine (0.7-1.2) mg/dL Glucose (65-100) mg/dL AST (5-40) units/L ALT (7-56) units/L CK-MB (CK-2) (0.0-4.0) ng/mL CK-MB (CK-2) Rel Index (0-4) Albumin (3.9-5) g/dL TSH 5.530 H (0.270-4.200) mlU/mL Free T4 1.55 H (0.76-1.46) ng/dL Digoxin 0.3 L (0.9-2.0) ng/mL - Imaging and Cardiology EKG: image reviewed Chest x-ray: report reviewed Assessment and Plan v/q low probability Assessment Acute on chronic combined systolic heart failure A. fib with rvr COPD Coronary artery disease Hypertension Chronic renal insufficiency Depression Thrombocytopenia Plan Admit medicine Diurese with IV Lasix Monitor I's and O's, daily weights Check cardiac enzymes, echo, consult cardiology Start beta frederick, aspirin, JUAN inhibitor give a dose of lopressor now, HR elevated continue appropriate outpatient medications DVT prophylaxis with eliquis
[2019-02-12] MEDS ORDERED: LOPRESSOR PO SCH (01:00)
[2019-02-12] MEDS ORDERED: ZOFRAN IV PRN (02:06)
[2019-02-12] MEDS ORDERED: PROVENTIL IH PRN (02:06)
[2019-02-12] MEDS ORDERED: TYLENOL PO PRN (02:06)
[2019-02-12] MEDS ORDERED: SODIUM CHLORIDE FLUSH SYRINGE 10 ML IV PRN (02:06)
[2019-02-12] MEDS: LASIX IV SCH (06:05)
[2019-02-12] MEDS: SYNTHROID PO SCH (06:05)
[2019-02-12] MEDS ORDERED: LOVENOX SUB-Q SCH (10:00)
[2019-02-12] MEDS ORDERED: NON-FORMULARY (Lisinopril [Zestril Tab] 2.5 MG) PO SCH (10:00)
[2019-02-12] MEDS: celeXA PO SCH (10:21)
[2019-02-12] MEDS: SODIUM CHLORIDE FLUSH SYRINGE 10 ML IV SCH ×2 (10:22→23:20)
[2019-02-12] MEDS: LOPRESSOR PO SCH (10:22)
--- NOTE | 2019-02-12 12:30 | Consultation ---
History of Present Illness Consult date: 02/12/19 Requesting physician: LUIS RICHARDSON Consult reason: congestive heart failure History of present illness: The pt is a 73 YO female with a past medical history of chronic atrial fibrillation, anticoagulated on Eliquis, HFrEF, NICMP, HTN, LBBB, CVA, COPD, tobacco use (says she quit smoking 15 days ago). She has been seen by our practice on prior hospitalizations but has admittedly not been compliant with OP follow up. She only regularly sees her PCP, Dr. Salgado. She presented with c/o SOB and minimal BLE swelling for 3 days prior to arrival. She denies any chest pain, palpitations, n/v, dizziness or syncope. LHC done 07/2017 showed mildly dilated LV, EF 40-45%, minimal coronary irregularities. Echo done 10/2018 showed EF 20-25%, septal wall hypertrophy, impaired relaxation, LA mildly dilated, RV systolic function mildly reduced, trivial pericardial effusion. Past History Past Medical History: other (as per HPI) Medications and Allergies Allergies Allergy/AdvReac Type Severity Reaction Status Date / Time No Known Allergies Allergy Verified 10/19/18 14:21 Home Medications Medication Instructions Recorded Confirmed Last Taken Type Apixaban [Eliquis] 5 mg PO HS 02/11/19 02/11/19 Unknown History AtorvaSTATin [Lipitor] 40 mg PO QHS 02/11/19 02/11/19 Unknown History Benzonatate [Tessalon Perles] 100 mg PO Q8HR 02/11/19 02/11/19 Unknown History Citalopram [celeXA] 20 mg PO QDAY 02/11/19 02/11/19 Unknown History Levothyroxine [Synthroid] 0.5 mg PO DAILY 02/11/19 02/11/19 Unknown History Lisinopril [Zestril TAB] 2.5 mg PO QDAY 02/11/19 02/11/19 Unknown History Metoprolol [Lopressor TAB] 50 mg PO BID 02/11/19 02/11/19 Unknown History levoFLOXacin [Levaquin TAB] 500 mg PO QDAY 02/11/19 02/11/19 Unknown History Active Meds: Active Medications Acetaminophen (Tylenol) 650 mg PO Q4H PRN PRN Reason: Pain MILD(1-3)/Fever >100.5/VAZQUEZ Albuterol (Proventil) 2.5 mg IH Q4HRT PRN PRN Reason: Shortness Of Breath Apixaban (Eliquis) 5 mg PO HS [facility]; Protocol Atorvastatin Calcium (Lipitor) 40 mg PO QHS [facility] Citalopram Hydrobromide (Celexa) 20 mg PO QDAY [facility] Last Admin: 02/12/19 10:21 Dose: 20 mg Documented by: Furosemide (Lasix) 40 mg IV BID@0600,1800 [facility] Last Admin: 02/12/19 06:05 Dose: 40 mg Documented by: Levothyroxine Sodium (Synthroid) 50 mcg PO DAILY@0600 [facility] Last Admin: 02/12/19 06:05 Dose: 50 mcg Documented by: Lisinopril (Zestril) 2.5 mg PO QDAY [facility] Metoprolol Tartrate (Lopressor) 50 mg PO BID [facility] Last Admin: 02/12/19 10:22 Dose: 50 mg Documented by: Ondansetron HCl (Zofran) 4 mg IV Q8H PRN PRN Reason: Nausea And Vomiting Sodium Chloride (Sodium Chloride Flush Syringe 10 Ml) 10 ml IV BID [facility] Last Admin: 02/12/19 10:22 Dose: 10 ml Documented by: Sodium Chloride (Sodium Chloride Flush Syringe 10 Ml) 10 ml IV PRN PRN PRN Reason: LINE FLUSH Review of Systems Constitutional: no weight loss, no weight gain, no fever, no chills, no sweats Ears, nose, mouth and throat: no ear pain, no nose pain, no sinus pressure, no sinus pain Cardiovascular: edema, shortness of breath, dyspnea on exertion, leg edema, no chest pain, no orthopnea, no palpitations, no rapid/irregular heart beat, no syncope, no lightheadedness Respiratory: shortness of breath, dyspnea on exertion, no cough, no congestion, no pain on inspiration Gastrointestinal: no abdominal pain, no nausea, no vomiting, no diarrhea, no constipation, no change in bowel habits Genitourinary Female: no pelvic pain, no flank pain, no dysuria, no urinary frequency, no urgency Musculoskeletal: no neck stiffness, no neck pain, no shooting arm pain, no arm numbness/tingling, no low back pain, no shooting leg pain Integumentary: no rash, no pruritis, no redness, no sores, no wounds Neurological: no head injury, no paralysis, no weakness, no parathesias, no numbness, no tingling, no seizures, no syncope Psychiatric: no anxiety Endocrine: no cold intolerance, no heat intolerance Hematologic/Lymphatic: no easy bruising, no easy bleeding Allergic/Immunologic: no urticaria, no wheezing Physical Examination Vital Signs Temp Pulse Resp BP Pulse Ox 98.3 F 88 20 100/72 98 02/11/19 18:13 02/11/19 18:13 02/11/19 18:13 02/11/19 18:13 02/11/19 18:13 General appearance: no acute distress HEENT: Positive: PERRL, Normocephaly, Mucus Membranes Moist Neck: Positive: neck supple, trachea midline Cardiac: Positive: irregularly irregular, S1/S2 Lungs: Positive: Decreased Breath Sounds Neuro: Positive: Grossly Intact Abdomen: Negative: Tender Skin: Negative: Rash Musculoskeletal: No Pain Extremities: Present: edema (trace BLE) Results 02/11/19 19:05 02/11/19 19:05 Cardiac Enzymes 02/11/19 Range/Units 19:05 AST 52 H (5-40) units/L CK-MB (CK-2) 5.0 H (0.0-4.0) ng/mL Coagulation 02/11/19 Range/Units 19:05 PT 16.1 H (12.2-14.9) Sec. INR 1.33 H (0.87-1.13) APTT 25.2 (24.2-36.6) Sec. CBC 02/11/19 Range/Units 19:05 WBC 4.2 L (4.5-11.0) K/mm3 RBC 4.08 (3.65-5.03) M/mm3 Hgb 13.3 (10.1-14.3) gm/dl Hct 39.8 (30.3-42.9) % Plt Count 138 L (140-440) K/mm3 Lymph # 1.5 (1.2-5.4) K/mm3 [place] # 0.5 (0.0-0.8) K/mm3 Eos # 0.0 (0.0-0.4) K/mm3 Baso # 0.0 (0.0-0.1) K/mm3 Comprehensive Metabolic Panel 02/11/19 Range/Units 19:05 Sodium 141 (137-145) mmol/L Potassium 5.0 (3.6-5.0) mmol/L Chloride 108.6 H (98-107) mmol/L Carbon Dioxide 22 (22-30) mmol/L BUN 31 H (7-17) mg/dL Creatinine 1.3 H (0.7-1.2) mg/dL Glucose 128 H (65-100) mg/dL Calcium 9.0 (8.4-10.2) mg/dL AST 52 H (5-40) units/L ALT 83 H (7-56) units/L Alkaline Phosphatase 105 (35-129) units/L Total Protein 6.3 (6.3-8.2) g/dL Albumin 3.6 L (3.9-5) g/dL - Imaging and Cardiology Echo: report reviewed (10/2018 showed EF 20-25%, septal wall hypertrophy, impaired relaxation, LA mildly dilated, RV systolic function mildly reduced, trivial pericardial effusion.) EKG: report reviewed, image reviewed EKG interpretations - Telemetry EKG Rhythm: Atrial Fibrillation - EKG Supraventricular dysrhythmia: atrial fibrillation Assessment and Plan DDimer elevated - VQ scan low prob for PE. Agree with present cardiac management. Monitor renal indices. The patient has been seen in conjunction with Dr. Campos who agrees with the assessment and plan of care. - Patient Problems (1) Acute on chronic HFrEF (heart failure with reduced ejection fraction) Current Visit: Yes Status: Acute (2) Renal insufficiency Current Visit: Yes Status: Acute (3) Atrial fibrillation Current Visit: Yes Status: Chronic (4) Nonischemic dilated cardiomyopathy Current Visit: Yes Status: Chronic (5) COPD (chronic obstructive pulmonary disease) Current Visit: Yes Status: Acute (6) History of CVA (cerebrovascular accident) Current Visit: Yes Status: Chronic (7) Tobacco use Current Visit: Yes Status: Chronic
--- NOTE | 2019-02-12 13:54 | Progress Note ---
Assessment and Plan Assessment and plan: Acute on chronic combined systolic heart failure A. fib with RVR COPD Coronary artery disease Hypertension Chronic renal insufficiency Depression Thrombocytopenia Plan Admitted to Tele Continue Lasix 40mg iv bid, Lopressor, Lisinopril Monitor I's and O's, daily weights Check cardiac enzymes, echo, consult cardiology Start beta frederick, aspirin, JUAN inhibitor Continue Eliquis for afib continue appropriate outpatient medications DVT prophylaxis On Eliquis History Interval history: Shortness of breath, improved No chest pain Hospitalist Physical - Physical exam Narrative exam: Gen: Not in acute distress, lying in bed,obese HEENT: Normocephalic, atraumatic Neck: supple, no JVD Heart: S1 and S2 reg, no murmurs, rubs or gallop Lungs: Bilateral basal crackles, no wheeze Abd: soft, non tender, non distended, normal BS Ext: No edema, no clubbing, no cyanosis, Neuro: Awake,alert, moves all ext, non focal - Constitutional Vitals: Temp Pulse Resp BP Pulse Ox 97.7 F 94 H 18 98/67 99 02/12/19 11:52 02/12/19 11:52 02/12/19 11:52 02/12/19 11:52 02/12/19 11:52 General appearance: Present: no acute distress Results - Labs CBC & Chem 7: 02/11/19 19:05 02/11/19 19:05 Labs: Laboratory Last Values WBC 4.2 K/mm3 (4.5-11.0) L 02/11/19 19:05 RBC 4.08 M/mm3 (3.65-5.03) 02/11/19 19:05 Hgb 13.3 gm/dl (10.1-14.3) 02/11/19 19:05 Hct 39.8 % (30.3-42.9) 02/11/19 19:05 MCV 98 fl (79-97) H 02/11/19 19:05 MCH 33 pg (28-32) H 02/11/19 19:05 MCHC 33 % (30-34) 02/11/19 19:05 RDW 16.1 % (13.2-15.2) H 02/11/19 19:05 Plt Count 138 K/mm3 (140-440) L 02/11/19 19:05 Lymph % (Auto) 34.4 % (13.4-35.0) 02/11/19 19:05 [place] % (Auto) 12.6 % (0.0-7.3) H 02/11/19 19:05 Eos % (Auto) 1.1 % (0.0-4.3) 02/11/19 19:05 Baso % (Auto) 0.9 % (0.0-1.8) 02/11/19 19:05 Lymph # 1.5 K/mm3 (1.2-5.4) 02/11/19 19:05 [place] # 0.5 K/mm3 (0.0-0.8) 02/11/19 19:05 Eos # 0.0 K/mm3 (0.0-0.4) 02/11/19 19:05 Baso # 0.0 K/mm3 (0.0-0.1) 02/11/19 19:05 Seg Neutrophils % 51.0 % (40.0-70.0) 02/11/19 19:05 Seg Neutrophils # 2.2 K/mm3 (1.8-7.7) 02/11/19 19:05 PT 16.1 Sec. (12.2-14.9) H 02/11/19 19:05 INR 1.33 (0.87-1.13) H 02/11/19 19:05 APTT 25.2 Sec. (24.2-36.6) 02/11/19 19:05 356.91 ng/mlDDU (0-234) H 02/11/19 19:05 Sodium 141 mmol/L (137-145) 02/11/19 19:05 Potassium 5.0 mmol/L (3.6-5.0) 02/11/19 19:05 Chloride 108.6 mmol/L (98-107) H 02/11/19 19:05 Carbon Dioxide 22 mmol/L (22-30) 02/11/19 19:05 15 mmol/L 02/11/19 19:05 BUN 31 mg/dL (7-17) H 02/11/19 19:05 1.3 mg/dL (0.7-1.2) H 02/11/19 19:05 Estimated GFR 40 ml/min 02/11/19 19:05 24 % 02/11/19 19:05 Glucose 128 mg/dL (65-100) H 02/11/19 19:05 Calcium 9.0 mg/dL (8.4-10.2) 02/11/19 19:05 0.50 mg/dL (0.1-1.2) 02/11/19 19:05 AST 52 units/L (5-40) H 02/11/19 19:05 ALT 83 units/L (7-56) H 02/11/19 19:05 105 units/L (35-129) 02/11/19 19:05 79 units/L (30-135) 02/11/19 19:05 CK-MB (CK-2) 5.0 ng/mL (0.0-4.0) H 02/11/19 19:05 CK-MB (CK-2) Rel Index 6.3 (0-4) H 02/11/19 19:05 < 0.010 ng/mL (0.00-0.029) 02/11/19 19:05 6.3 g/dL (6.3-8.2) 02/11/19 19:05 3.6 g/dL (3.9-5) L 02/11/19 19:05 1.3 % 02/11/19 19:05 TSH 5.530 mlU/mL (0.270-4.200) H 02/11/19 19:05 Free T4 1.55 ng/dL (0.76-1.46) H 02/11/19 19:05 Digoxin 0.3 ng/mL (0.9-2.0) L 02/11/19 19:05 Active Medications - Current Medications Current Medications: Generic Name Dose Route Start Last Admin Trade Name Freq PRN Reason Stop Dose Admin Acetaminophen 650 mg 02/12/19 02:06 Tylenol PO Q4H PRN Pain MILD(1-3)/Fever >100.5/VAZQUEZ Albuterol 2.5 mg 02/12/19 02:06 Proventil IH Q4HRT PRN Shortness Of Breath Apixaban 2.5 mg 02/12/19 22:00 Eliquis PO Q12HR ANGÉLICA Protocol Atorvastatin Calcium 40 mg 02/12/19 22:00 Lipitor PO QHS ANGÉLICA Citalopram Hydrobromide 20 mg 02/12/19 10:00 02/12/19 10:21 Celexa PO 20 mg QDAY ANGÉLICA Administration Furosemide 40 mg 02/12/19 06:00 02/12/19 06:05 Lasix IV 40 mg BID@0600,1800 ANGÉLICA Administration Levothyroxine Sodium 50 mcg 02/12/19 06:00 02/12/19 06:05 Synthroid PO 50 mcg DAILY@0600 ANGÉLICA Administration Lisinopril 2.5 mg 02/12/19 10:00 Zestril PO QDAY ANGÉLICA Metoprolol Tartrate 50 mg 02/12/19 10:00 02/12/19 10:22 Lopressor PO 50 mg BID ANGÉLICA Administration Ondansetron HCl 4 mg 02/12/19 02:06 Zofran IV Q8H PRN Nausea And Vomiting Sodium Chloride 10 ml 02/12/19 10:00 02/12/19 10:22 Sodium Chloride Flush Syringe 10 Ml IV 10 ml BID ANGÉLICA Administration Sodium Chloride 10 ml 02/12/19 02:06 Sodium Chloride Flush Syringe 10 Ml IV PRN PRN LINE FLUSH
[2019-02-12] MEDS: ZESTRIL PO SCH (14:08)
[2019-02-12] MEDS ORDERED: ELIQUIS PO SCH (22:00)
[2019-02-12] MEDS: ELIQUIS PO SCH (23:19)
[2019-02-13] MEDS: LOPRESSOR PO SCH ×3 (01:28→22:17)
[2019-02-13] MEDS: SYNTHROID PO SCH (05:15)
[2019-02-13] MEDS: LASIX IV SCH ×2 (05:15→07:45)
[2019-02-13 07:46] LABS: Eosinophils # (Auto) 0.1 K/mm3 (0.0-0.4); Eosinophils % (Auto) 2.3 % (0.0-4.3); Hematocrit 43.1 % (30.3-42.9); Hemoglobin 14.3 gm/dl (10.1-14.3); Lymphocytes # (Auto) 1.4 K/mm3 (1.2-5.4); Lymphocytes % (Auto) 28.6 % (13.4-35.0); Mean Corpuscular HGB Conc 33 % (30-34); Mean Corpuscular Volume 96 fl (79-97); Monocytes # (Auto) 0.5 K/mm3 (0.0-0.8); Monocytes % (Auto) 10.3 % (0.0-7.3); Red Blood Count 4.48 M/mm3 (3.65-5.03)
[2019-02-13 08:09] LABS: Calcium 8.7 mg/dL (8.4-10.2)
[2019-02-13 08:32] LABS: Platelet Count 133 K/mm3 (140-440)
[2019-02-13] MEDS: ELIQUIS PO SCH ×2 (10:36→22:20)
[2019-02-13] MEDS: SODIUM CHLORIDE FLUSH SYRINGE 10 ML IV SCH ×2 (10:36→22:21)
[2019-02-13] MEDS: ZESTRIL PO SCH (10:36)
[2019-02-13] MEDS: celeXA PO SCH (10:39)
--- NOTE | 2019-02-13 12:56 | Progress Note ---
Assessment and Plan Pt appears euvolemic - d/c IV lasix. Optimize HR - resume home digoxin. The patient has been seen in conjunction with Dr. Campos who agrees with the assessment and plan of care. - Patient Problems (1) Acute on chronic HFrEF (heart failure with reduced ejection fraction) Current Visit: Yes Status: Acute (2) Renal insufficiency Current Visit: Yes Status: Acute (3) Atrial fibrillation Current Visit: Yes Status: Chronic (4) Nonischemic dilated cardiomyopathy Current Visit: Yes Status: Chronic (5) COPD (chronic obstructive pulmonary disease) Current Visit: Yes Status: Acute (6) History of CVA (cerebrovascular accident) Current Visit: Yes Status: Chronic (7) Tobacco use Current Visit: Yes Status: Chronic Subjective Date of service: 02/13/19 Principal diagnosis: AFib Interval history: pt resting in bed, no current complaints. in AFib on tele with HR 100s, bout of RVR HR 130s noted overnight. Objective Last Vital Signs Temp 98.5 F 02/13/19 08:09 Pulse 98 H 02/13/19 11:37 Resp 18 02/13/19 08:09 BP 109/77 02/13/19 08:09 Pulse Ox 93 02/13/19 08:09 - Physical Examination General: No Apparent Distress HEENT: Positive: PERRL, Normocephaly, Mucus Membranes Moist Neck: Positive: neck supple, trachea midline Cardiac: Positive: irregularly irregular, S1/S2 Lungs: Positive: Decreased Breath Sounds Neuro: Positive: Grossly Intact Abdomen: Negative: Tender Skin: Negative: Rash Musculoskeletal: No Pain Extremities: Present: edema (trace BLE) - Labs and Meds CBC 02/13/19 Range/Units 07:08 WBC 4.9 (4.5-11.0) K/mm3 RBC 4.48 (3.65-5.03) M/mm3 Hgb 14.3 (10.1-14.3) gm/dl Hct 43.1 H (30.3-42.9) % Plt Count 133 L (140-440) K/mm3 Lymph # 1.4 (1.2-5.4) K/mm3 [place] # 0.5 (0.0-0.8) K/mm3 Eos # 0.1 (0.0-0.4) K/mm3 Baso # 0.0 (0.0-0.1) K/mm3 Comprehensive Metabolic Panel 02/13/19 Range/Units 07:08 Sodium 143 (137-145) mmol/L Potassium 3.5 L D (3.6-5.0) mmol/L Chloride 102.1 (98-107) mmol/L Carbon Dioxide 28 (22-30) mmol/L BUN 34 H (7-17) mg/dL Creatinine 1.3 H (0.7-1.2) mg/dL Glucose 97 (65-100) mg/dL Calcium 8.7 (8.4-10.2) mg/dL - Imaging and Cardiology EKG: report reviewed, image reviewed Echo: report reviewed (10/2018 showed EF 20-25%, septal wall hypertrophy, impaired relaxation, LA mildly dilated, RV systolic function mildly reduced, trivial pericardial effusion.)
[2019-02-13] MEDS ORDERED: K-DUR PO ONE (13:10)
--- NOTE | 2019-02-13 14:22 | Progress Note ---
Assessment and Plan Acute on chronic combined systolic heart failure A. fib with RVR COPD Coronary artery disease Hypertension Chronic renal insufficiency Depression Thrombocytopenia Plan Admitted to Tele Continue Lasix 40mg iv bid, aspirin, Lopressor, Lisinopril Monitor I's and O's, daily weights Follow cardiac enzymes, 2-D echo, consulted cardiology Continue Eliquis for afib continue appropriate outpatient medications DVT prophylaxis On Eliquis Disposition: When patient clinically stable and cleared by cardiology Brief history: The pt is a 73 YO female with a past medical history of chronic atrial fibrillation, anticoagulated on Eliquis, HFrEF, NICMP, HTN, LBBB, CVA, COPD, tobacco use (says she quit smoking 15 days ago) presented with c/o SOB and minimal BLE swelling for 3 days prior to arrival. She denies any chest pain, palpitations, n/v, dizziness or syncope. LHC done 07/2017 showed mildly dilated LV, EF 40-45%, minimal coronary irregularities. Echo done 10/2018 showed EF 20-25%, septal wall hypertrophy, impaired relaxation, LA mildly dilated, RV systolic function mildly reduced, trivial pericardial effusion. Hospitalist Physical Gen: Not in acute distress, lying in bed,obese HEENT: Normocephalic, atraumatic Neck: supple, no JVD Heart: S1 and S2 reg, no murmurs, rubs or gallop Lungs: Bilateral basal crackles, no wheeze Abd: soft, non tender, non distended, normal BS Ext: No edema, no clubbing, no cyanosis, Neuro: Awake,alert, moves all ext, non focal Subjective Date of service: 02/13/19 Principal diagnosis: AFib Interval history: Patient seen and examined. Medical records and medication list reviewed. No acute event overnight noted by the RN. Patient denies any chest pain but complains of difficulty breathing with exertion. Patient is tolerating diet. Discussed plan of care at bedside with patient. Objective - Constitutional Vitals: Vital Signs - 12hr 02/13/19 02/13/19 02/13/19 04:43 04:47 07:43 Temperature 97.2 F L Pulse Rate 98 H Pulse Rate [ Apical] Respiratory 16 Rate Blood Pressure 105/66 O2 Sat by Pulse 100 Oximetry 02/13/19 02/13/19 02/13/19 08:09 11:37 12:55 Temperature 98.5 F Pulse Rate 51 L Pulse Rate [ 98 H Apical] Respiratory 18 Rate Blood Pressure 109/77 O2 Sat by Pulse 93 96 Oximetry - Labs CBC & Chem 7: 02/13/19 07:08 02/14/19 06:54 Labs: Abnormal lab results 02/13/19 02/13/19 Range/Units 07:08 07:08 Hct 43.1 H (30.3-42.9) % RDW 16.0 H (13.2-15.2) % Plt Count 133 L (140-440) K/mm3 [place] % (Auto) 10.3 H (0.0-7.3) % Potassium 3.5 L D (3.6-5.0) mmol/L BUN 34 H (7-17) mg/dL Creatinine 1.3 H (0.7-1.2) mg/dL
[2019-02-13] MEDS ORDERED: LANOXIN PO SCH (17:00)
[2019-02-14] MEDS: SYNTHROID PO SCH (05:22)
[2019-02-14 07:41] LABS: Calcium 8.2 mg/dL (8.4-10.2)
[2019-02-14 08:53] VITALS: BP 110/74
[2019-02-14] MEDS ORDERED: ZESTRIL PO SCH (10:00)
[2019-02-14] MEDS: LOPRESSOR PO SCH (10:39)
[2019-02-14] MEDS: celeXA PO SCH (10:40)
[2019-02-14] MEDS: SODIUM CHLORIDE FLUSH SYRINGE 10 ML IV SCH (10:42)
[2019-02-14] MEDS: ELIQUIS PO SCH (10:42)
--- NOTE | 2019-02-14 11:07 | Progress Note ---
Assessment and Plan HR improved with addition of digoxin. Currently stable cardiac status. Pt may discharge from cardiology standpoint on current cardiac regimen. Recommend pt follow up in our office with Dr. aCmpos within 3-5 days of hospital discharge ([phone]). The patient has been seen in conjunction with Dr. Campos who agrees with the assessment and plan of care. - Patient Problems (1) Acute on chronic HFrEF (heart failure with reduced ejection fraction) Current Visit: Yes Status: Acute (2) Renal insufficiency Current Visit: Yes Status: Acute (3) Atrial fibrillation Current Visit: Yes Status: Chronic (4) Nonischemic dilated cardiomyopathy Current Visit: Yes Status: Chronic (5) COPD (chronic obstructive pulmonary disease) Current Visit: Yes Status: Acute (6) History of CVA (cerebrovascular accident) Current Visit: Yes Status: Chronic (7) Tobacco use Current Visit: Yes Status: Chronic Subjective Date of service: 02/14/19 Principal diagnosis: AFib Interval history: pt resting in bed, no current complaints. in AFib on tele with HR 90s - 100s, no RVR noted overnight. Objective Last Vital Signs Temp 98.4 F 02/14/19 08:27 Pulse 86 02/14/19 10:40 Resp 18 02/14/19 08:27 BP 110/74 02/14/19 08:27 Pulse Ox 94 02/14/19 09:48 - Physical Examination General: No Apparent Distress HEENT: Positive: PERRL, Normocephaly, Mucus Membranes Moist Neck: Positive: neck supple, trachea midline Cardiac: Positive: irregularly irregular, S1/S2 Lungs: Positive: Decreased Breath Sounds Neuro: Positive: Grossly Intact Abdomen: Negative: Tender Skin: Negative: Rash Musculoskeletal: No Pain Extremities: Present: edema (trace BLE) - Labs and Meds Comprehensive Metabolic Panel 02/14/19 Range/Units 06:54 Sodium 144 (137-145) mmol/L Potassium 3.5 L (3.6-5.0) mmol/L Chloride 106.9 (98-107) mmol/L Carbon Dioxide 28 (22-30) mmol/L BUN 30 H (7-17) mg/dL Creatinine 1.2 (0.7-1.2) mg/dL Glucose 84 (65-100) mg/dL Calcium 8.2 L (8.4-10.2) mg/dL - Imaging and Cardiology EKG: report reviewed, image reviewed Echo: report reviewed (10/2018 showed EF 20-25%, septal wall hypertrophy, impaired relaxation, LA mildly dilated, RV systolic function mildly reduced, trivial pericardial effusion.)
--- NOTE | 2019-02-14 14:59 | Discharge Summary ---
Providers - Providers Date of Admission: 02/11/19 23:52 Date of discharge: 02/14/19 Attending physician: RALPH MURPHY 02/12/19 02:06 Consult to Physician [CONS] Routine Comment: Consulting Provider: STAN HUTCHISON Physician Instructions: Reason For Exam: chf Primary care physician: [facility], Hospitalization Condition: Fair Pertinent studies: cxr VQ scan Hospital course: Brief history: The pt is a 73 YO female with a past medical history of chronic atrial fibril lation, anticoagulated on Eliquis, HFrEF, NICMP, HTN, LBBB, CVA, COPD, tobacco use (says she quit smoking 15 days ago) presented with c/o SOB and minimal BLE swelling for 3 days prior to arrival. She denied any chest pain, palpitations, n/v, dizziness or syncope. Patient was Admitted to [facility], placed on Lasix 40mg iv bid, aspirin, Lopressor, Lisinopril, Monitored I's and O's and daily weights, Followed cardiac enzymes, consulted cardiology. Continued appropriate outpatient medications including Eliquis for afib. Previous data: LHC done 07/2017 showed mildly dilated LV, EF 40-45%, minimal coronary irregularities. Echo done 10/2018 showed EF 20-25%, septal wall hypertrophy, impaired relaxation, LA mildly dilated, RV systolic function mildly reduced, trivial pericardial effusion. Her symptoms improved with medical management, cardiology cleared for discharge with outpt followup. Patient was then discharged home in stable condition. Discharge diagnosis: Acute on chronic combined systolic heart failure, EF 20-25% A. fib with RVR COPD Coronary artery disease Hypertension Chronic renal insufficiency Depression Thrombocytopenia Hospitalist Physical Gen: Not in acute distress, lying in bed,obese HEENT: Normocephalic, atraumatic Neck: supple, no JVD Heart: S1 and S2 reg, no murmurs, rubs or gallop Lungs: Bilateral basal crackles, no wheeze Abd: soft, non tender, non distended, normal BS Ext: No edema, no clubbing, no cyanosis, Neuro: Awake,alert, moves all ext, non focal Disposition: [id number]/[place]-06 HOME UNDER HOME [facility] Time spent for discharge: 34 minutes Core Measure Documentation - Palliative Care Palliative Care/ Comfort Measures: Not Applicable - Core Measures Any of the following diagnoses?: none Exam - Constitutional Vitals: Temp Pulse Resp BP Pulse Ox 98.4 F 86 18 110/74 94 02/14/19 08:27 02/14/19 10:40 02/14/19 08:27 02/14/19 08:27 02/14/19 09:48 Plan Activity: advance as tolerated Weight Bearing Status: Weight Bear as Tolerated Diet: low fat, low salt Special Instructions: restrict fluid intake to (1.2 L daily ), record daily weights, record daily BP diary Follow up with: MACARENA MOSSHARVEY MD KENNY [Primary Care Provider] - 3-5 Days Prescriptions: Aspirin EC 81 mg PO QDAY #30 tablet. Potassium Chloride [K-Dur] 10 meq PO QDAY #30 tablet Furosemide [Lasix TAB] 40 mg PO QDAY #30 tablet
== END 2019-02-14 17:30 | disposition home health service (06) | DRG 291 ==
LOC: ED 17:41 → 4A 23:52
PROVIDERS: ADMIT Internal Medicine; ATTEND Internal Medicine
DX: I13.0 Hypertensive heart and chronic kidney disease with heart failure and stage 1 through stage 4 chronic kidney disease, or unspecified chronic kidney disease (principal); I50.23 Acute on chronic systolic (congestive) heart failure; I25.2 Old myocardial infarction; J44.9 Chronic obstructive pulmonary disease, unspecified; I42.0 Dilated cardiomyopathy; I48.2 Chronic atrial fibrillation; I25.10 Atherosclerotic heart disease of native coronary artery without angina pectoris; F32.9 Major depressive disorder, single episode, unspecified; N18.9 Chronic kidney disease, unspecified; D69.6 Thrombocytopenia, unspecified; Z79.01 Long term (current) use of anticoagulants; Z87.891 Personal history of nicotine dependence; Z79.82 Long term (current) use of aspirin; Z86.73 Personal history of transient ischemic attack (TIA), and cerebral infarction without residual deficits
CPT/HCPCS: 36415; 71045; 78582; 80048; 80053; 80162; 82550; 82553; 82962; 84439; 84443; 84484; 85025; 85379; 85610; 85730; 93005; 93010; 94640; 94760; G0378; A9270-GY; A9540; A9558; J1940

== ENCOUNTER 2019-04-02 19:26 | Emergency (ER) | payer MEDICARE ==
--- NOTE | 2019-04-02 20:57 | XRay Report ---
CHEST PA AND LATERAL VIEWS INDICATION: cough. COMPARISON: 02/11/2019 FINDINGS: Support devices: None Heart: Cardiomegaly, unchanged Lungs/Pleura: Pulmonary edema is improved but not completely resolved. Pleural effusions have resolve d. IMPRESSION: 1. Significant improvement in the congestive failure. Signer Name: Geoff Espinal MD Signed: 04/02/2019 8:52 PM Workstation Name: [id number]
--- NOTE | 2019-04-02 20:58 | Emergency Department Report ---
ED Shortness of Breath HPI - General Chief Complaint: Dyspnea/Respdistress Stated Complaint: PIERO Time Seen by Provider: 04/02/19 20:06 Source: EMS Mode of arrival: Stretcher Limitations: No Limitations - History of Present Illness Initial Comments: 73 yo F with hx of CHF, COPD presents to ED with SOB with wheezing x 3 days. Pt reports productive cough, denies fever or chest pain. Reports swelling to bilateral feet that has now resolved. Pt states used her inhaler at home without relief. Reports she ran out of medication for her nebulizer machine. EMS was called tonight for difficulty breathing. Pt was given solumedrol and albuterol/atrovent nebs. Pt states she is currently feeling much better. Reports tobacco use. MD Complaint: shortness of breath, cough -: days(s) (3) Severity: moderate Consistency: constant Improves With: nothing Worsens With: exertion Known History Of: COPD Associated Symptoms: cough, sputum production Treatments Prior to Arrival: bronchodilator, other (solumedrol) - Related Data Home Oxygen Therapy: No Home Medications Medication Instructions Recorded Confirmed Last Taken Apixaban [Eliquis] 5 mg PO HS 02/11/19 02/11/19 Unknown AtorvaSTATin [Lipitor] 40 mg PO QHS 02/11/19 02/11/19 Unknown Benzonatate [Tessalon Perles] 100 mg PO Q8HR 02/11/19 02/11/19 Unknown Citalopram [Celexa] 20 mg PO QDAY 02/11/19 02/11/19 Unknown Levothyroxine [Synthroid] 0.5 mg PO DAILY 02/11/19 02/11/19 Unknown Lisinopril [Zestril TAB] 2.5 mg PO QDAY 02/11/19 02/11/19 Unknown Metoprolol [Lopressor TAB] 50 mg PO BID 02/11/19 02/11/19 Unknown Previous Rx's Medication Instructions Recorded Last Taken Type Aspirin EC [Halfprin EC] 81 mg PO QDAY #30 tablet. 02/14/19 Unknown Rx Furosemide [Lasix TAB] 40 mg PO QDAY #30 tablet 02/14/19 Unknown Rx Potassium Chloride [K-Dur] 10 meq PO QDAY #30 tablet 02/14/19 Unknown Rx Albuterol Sulfate [Albuterol 0.63% 0.63 mg IH TID PRN #100 ml 04/02/19 Unknown R x NEBS] Albuterol Sulfate [Proventil Hfa] 2 puff IH Q4HR PRN #1 hfa.aer.ad 04/02/19 Unknown Rx Benzonatate [Tessalon Perles] 100 mg PO Q8HR PRN #20 capsule 04/02/19 Unknown Rx predniSONE [Deltasone] 50 mg PO QDAY #5 tab 04/02/19 Unknown Rx Allergies Allergy/AdvReac Type Severity Reaction Status Date / Time No Known Allergies Allergy Verified 10/19/18 14:21 ED Review of Systems ROS: Stated complaint: PIERO Other details as noted in HPI Comment: All other systems reviewed and negative Constitutional: denies: chills, fever Respiratory: cough, shortness of breath, SOB with exertion, wheezing Cardiovascular: denies: chest pain Musculoskeletal: other (reports pedal edema) ED Past Medical Hx - Past Medical History Previous Medical History?: Yes Hx Hypertension: Yes Hx Heart Attack/AMI: Yes Hx Congestive Heart Failure: Yes Hx COPD: Yes Additional medical history: pneumonia. Atrial fibrillation. Dilated cardiomyopathy - Surgical History Past Surgical History?: Yes Hx Breast Surgery: Yes Additional Surgical History: breast surgery - Social History Smoking Status: Never Smoker Substance Use Type: None - Medications Home Medications: Home Medications Medication Instructions Recorded Confirmed Last Taken Type Apixaban [Eliquis] 5 mg PO HS 02/11/19 02/11/19 Unknown History AtorvaSTATin [Lipitor] 40 mg PO QHS 02/11/19 02/11/19 Unknown History Benzonatate [Tessalon Perles] 100 mg PO Q8HR 02/11/19 02/11/19 Unknown History Citalopram [Celexa] 20 mg PO QDAY 02/11/19 02/11/19 Unknown History Levothyroxine [Synthroid] 0.5 mg PO DAILY 02/11/19 02/11/19 Unknown History Lisinopril [Zestril TAB] 2.5 mg PO QDAY 02/11/19 02/11/19 Unknown History Metoprolol [Lopressor TAB] 50 mg PO BID 02/11/19 02/11/19 Unknown History Aspirin EC [Halfprin EC] 81 mg PO QDAY #30 tablet. 02/14/19 Unknown Rx Furosemide [Lasix TAB] 40 mg PO QDAY #30 tablet 02/14/19 Unknown Rx Potassium Chloride [K-Dur] 10 meq PO QDAY #30 tablet 02/14/19 Unknown Rx Albuterol Sulfate [Albuterol 0.63% 0.63 mg IH TID PRN #100 ml 04/02/19 Unknown Rx NEBS] Albuterol Sulfate [Proventil Hfa] 2 puff IH Q4HR PRN #1 hfa.aer.ad 04/02/19 Unknown Rx Benzonatate [Tessalon Perles] 100 mg PO Q8HR PRN #20 capsule 04/02/19 Unknown Rx predniSONE [Deltasone] 50 mg PO QDAY #5 tab 04/02/19 Unknown Rx ED Physical Exam - General Limitations: No Limitations General appearance: alert, in no apparent distress - Head Head exam: Present: atraumatic, normocephalic - Eye Eye exam: Present: normal appearance, PERRL, EOMI - ENT ENT exam: Present: mucous membranes moist - Neck Neck exam: Present: normal inspection - Respiratory Respiratory exam: Present: normal lung sounds bilaterally. Absent: respiratory distress - Cardiovascular Cardiovascular Exam: Present: regular rate, normal rhythm - GI/Abdominal GI/Abdominal exam: Present: soft. Absent: distended, tenderness - Extremities Exam Extremities exam: Present: normal inspection. Absent: pedal edema, calf tenderness - Neurological Exam Neurological exam: Present: alert, oriented X3 - Psychiatric Psychiatric exam: Present: normal affect, normal mood - Skin Skin exam: Present: warm, dry, intact, normal color ED Course Vital Signs 04/02/19 04/02/19 04/02/19 19:52 21:58 22:34 Temperature 98.1 F 98.0 F Pulse Rate 101 H 109 H Pulse Rate [ 90 Bilateral Throughout] Respiratory 16 20 Rate Respiratory 18 Rate [Bilateral Throughout] Blood Pressure 129/67 Blood Pressure 141/89 [Right] O2 Sat by Pulse 97 97 Oximetry - Reevaluation(s) Reevaluation #1: 04/02/19 22:09 Pt states feels like wheezing is coming back. Will give another neb treatment. Reevaluation #2: 04/02/19 23:45 Pt ambulated without difficulty to bathroom. Currently asleep on stretcher. States is feeling much better. O2 sats normal. Lungs clear. ED Medical Decision Making - Lab Data Result diagrams: 04/02/19 20:46 04/02/19 20:46 - EKG Data -: EKG Interpreted by Me EKG shows normal: ST-T waves Rate: tachycardia (rate 115) - EKG Data When compared to previous EKG there are: no significant change (compared to 02/11/2019) Interpretation: other (afib, LBBB) - Radiology Data Radiology results: report reviewed, image reviewed - Medical Decision Making 73 yo F w/ COPD exacerbation. Hx CHF, with chronic elevation of BNP. Pt does not show any signs of fluid overload at this time. Pt has no extremity edema present, pulm edema on CXR is minimal compared to last CXR. O2 sats are normal. No rales on exam. EKG is unchanged, no ST changes. Pt feeling much better following neb treatments and steroids. Creatnine slightly increased from last time, currently 1.8. Was 1.2 on 02/14/19, has been as high as 1.5 in January 2019. Potassium is normal. Hx of CKD, states she was told that she would be needing to f/u with a experience specialist but does not have one at this time. Will provide nephology information for outpt f/u. Will d/c at this time. Pt given return precautions. - Differential Diagnosis COPD, pneumonia, CHF Critical care attestation.: If time is entered above; I have spent that time in minutes in the direct care of this critically ill patient, excluding procedure time. ED Disposition Clinical Impression: COPD exacerbation, Renal insufficiency Disposition: TO HOME OR SELFCARE Is pt being admited?: No Condition: Stable Instructions: Chronic Obstructive Pulmonary Disease (ED), Impaired Kidney Function (ED) Prescriptions: Albuterol Sulfate [Albuterol 0.63% NEBS] 0.63 mg IH TID PRN #100 ml PRN Reason: Wheezing predniSONE [Deltasone] 50 mg PO QDAY #5 tab Albuterol Sulfate [Proventil Hfa] 2 puff IH Q4HR PRN #1 hfa.aer.ad PRN Reason: Wheezing Benzonatate [Tessalon Perles] 100 mg PO Q8HR PRN #20 capsule PRN Reason: Cough Referrals: PRIMARY CARE, [Primary Care Provider] - 3-5 Days JOSE DE JESUS ELMORE MD [Staff Physician] - 3-5 Days Time of Disposition: 23:46
[2019-04-02 21:07] LABS: Eosinophils % (Auto) 0.1 % (0.0-4.3); Monocytes # (Auto) 0.2 K/mm3 (0.0-0.8); Monocytes % (Auto) 6.3 % (0.0-7.3)
[2019-04-02 21:16] LABS: Basophils % (Auto) 0.3 % (0.0-1.8); Hematocrit 39.7 % (30.3-42.9); Hemoglobin 13.2 gm/dl (10.1-14.3); Lymphocytes # (Auto) 1.4 K/mm3 (1.2-5.4); Lymphocytes % (Auto) 37.5 % (13.4-35.0); Mean Corpuscular HGB Conc 33 % (30-34); Mean Corpuscular Volume 93 fl (79-97); Red Blood Count 4.29 M/mm3 (3.65-5.03); Red Cell Distribution Width 14.7 % (13.2-15.2)
[2019-04-02 21:21] LABS: Platelet Count 90 K/mm3 (140-440)
[2019-04-02 21:26] LABS: BUN/Creatinine Ratio 19; Blood Urea Nitrogen 34 mg/dL (7-17); Hemolysis Index 4
[2019-04-02] MEDS ORDERED: PROVENTIL IH ONE (22:02)
[2019-04-02] MEDS ORDERED: ATROVENT IH ONE (22:02)
[2019-04-03 01:38] VITALS: BP 132/89
== END 2019-04-03 02:42 | disposition home or self-care (01) ==
LOC: ED 19:26
DX: J44.1 Chronic obstructive pulmonary disease with (acute) exacerbation (principal); I13.0 Hypertensive heart and chronic kidney disease with heart failure and stage 1 through stage 4 chronic kidney disease, or unspecified chronic kidney disease; I50.9 Heart failure, unspecified; N18.9 Chronic kidney disease, unspecified; I48.91 Unspecified atrial fibrillation; I42.0 Dilated cardiomyopathy; Z87.01 Personal history of pneumonia (recurrent); Z79.899 Other long term (current) drug therapy; Z79.82 Long term (current) use of aspirin
CPT/HCPCS: 36415; 71046; 80048; 83880; 85025; 93005; 93010; 94640; 94644

== ENCOUNTER 2019-04-05 15:49 | Inpatient (IN) | payer MEDICARE ==
[2019-04-05 16:23] LABS: Basophils % (Auto) 0.2 % (0.0-1.8); Hematocrit 38.8 % (30.3-42.9); Hemoglobin 12.8 gm/dl (10.1-14.3); Lymphocytes # (Auto) 1.9 K/mm3 (1.2-5.4); Lymphocytes % (Auto) 33.6 % (13.4-35.0); Mean Corpuscular HGB Conc 33 % (30-34); Mean Corpuscular Volume 94 fl (79-97); Monocytes # (Auto) 0.5 K/mm3 (0.0-0.8); Monocytes % (Auto) 8.6 % (0.0-7.3); Red Blood Count 4.11 M/mm3 (3.65-5.03); Red Cell Distribution Width 15.1 % (13.2-15.2)
[2019-04-05 16:36] LABS: Platelet Count 100 K/mm3 (140-440)
[2019-04-05] MEDS ORDERED: PROVENTIL IH ONE ×2 (16:36→16:41)
[2019-04-05] MEDS ORDERED: ATROVENT IH ONE ×2 (16:37→16:40)
[2019-04-05 16:45] LABS: INR 1.44 (0.87-1.13)
[2019-04-05 16:46] LABS: Partial Thromboplastin Time 24.7 Sec. (24.2-36.6)
[2019-04-05 16:49] LABS: Alanine Aminotransferase 67 units/L (7-56); Albumin 3.7 g/dL (3.9-5); BUN/Creatinine Ratio 26; Blood Urea Nitrogen 49 mg/dL (7-17); Calcium 9.1 mg/dL (8.4-10.2); Hemolysis Index 3
--- NOTE | 2019-04-05 17:00 | XRay Report ---
CHEST 2 VIEWS INDICATION: sob. COMPARISON: 04/02/2019 and 02/11/2019 FINDINGS: Support devices: None. Heart: Stable cardiomegaly. Pulmonary vasculature: Increased with indistinct vessels. Lungs/pleura: Mild bilateral perihilar reticular interstitial opacities. No pulmonary consolidation. No pleural effusion. No pneumothorax. Additional findings: None. IMPRESSION: 1. Worsened CHF with mild perihilar interstitial pulmonary edema. Signer Name: Matias Akbar MD Signed: 04/05/2019 4:56 PM Workstation Name: [id number]
--- NOTE | 2019-04-05 18:00 | Emergency Department Report ---
ED Shortness of Breath HPI - General Chief Complaint: Dyspnea/Respdistress Stated Complaint: PIERO Time Seen by Provider: 04/05/19 15:57 Source: EMS, old records reviewed Mode of arrival: Stretcher Limitations: No Limitations - History of Present Illness Initial Comments: 73 yo female with a past medical history of chronic atrial fibrillation anticoagulated on Eliquis, COPD without oxygen, hypertension, and left bundle branch block presents to the Hospital complains of shortness of breath 2 days. Patient seen and evaluated here April 02 with similar symptoms. Symptoms improved with ED treatment and she was discharged on nebs, prednisone, and cough medicine. Symptoms worsened today. Patient noted to be hypoxic upon their arrival with respiratory distress. Patient was treated with albuterol 5 mg, Atrovent 0.5 mg, IM Solu-Medrol 125 mg, IV 2 g of mag, and CPAP was initiated. Patient's oxygenation and respiratory distress improved with this treatment in route. Patient was transitioned to BiPAP upon arrival. She denies previous intubations. She denies chest pain. - Related Data Home Medications Medication Instructions Recorded Confirmed Last Taken Apixaban [Eliquis] 5 mg PO HS 02/11/19 02/11/19 Unknown AtorvaSTATin [Lipitor] 40 mg PO QHS 02/11/19 02/11/19 Unknown Benzonatate [Tessalon Perles] 100 mg PO Q8HR 02/11/19 02/11/19 Unknown Citalopram [Celexa] 20 mg PO QDAY 02/11/19 02/11/19 Unknown Levothyroxine [Synthroid] 0.5 mg PO DAILY 02/11/19 02/11/19 Unknown Lisinopril [Zestril TAB] 2.5 mg PO QDAY 02/11/19 02/11/19 Unknown Metoprolol [Lopressor TAB] 50 mg PO BID 02/11/19 02/11/19 Unknown Previous Rx's Medication Instructions Recorded Last Taken Type Aspirin EC [Halfprin EC] 81 mg PO QDAY #30 tablet. 02/14/19 Unknown Rx Furosemide [Lasix TAB] 40 mg PO QDAY #30 tablet 02/14/19 Unknown Rx Potassium Chloride [K-Dur] 10 meq PO QDAY #30 tablet 02/14/19 Unknown Rx Albuterol Sulfate [Albuterol 0.63% 0.63 mg IH TID PRN #100 ml 04/02/19 Unknown Rx NEBS] Albuterol Sulfate [Proventil Hfa] 2 puff IH Q4HR PRN #1 hfa.aer.ad 04/02/19 Unknown Rx Benzonatate [Tessalon Perles] 100 mg PO Q8HR PRN #20 capsule 04/02/19 Unknown Rx predniSONE [Deltasone] 50 mg PO QDAY #5 tab 04/02/19 Unknown Rx Allergies Allergy/AdvReac Type Severity Reaction Status Date / Time No Known Allergies Allergy Verified 10/19/18 14:21 ED Review of Systems ROS: Stated complaint: PIERO Other details as noted in HPI Comment: All other systems reviewed and negative ED Past Medical Hx - Past Medical History Hx Hypertension: Yes Hx Heart Attack/AMI: Yes Hx Congestive Heart Failure: Yes Hx COPD: Yes Additional medical history: pneumonia. Atrial fibrillation. Dilated cardiomyopathy - Surgical History Hx Breast Surgery: Yes Additional Surgical History: breast surgery - Social History Smoking Status: Former Smoker Substance Use Type: None - Medications Home Medications: Home Medications Medication Instructions Recorded Confirmed Last Taken Type Apixaban [Eliquis] 5 mg PO HS 02/11/19 02/11/19 Unknown History AtorvaSTATin [Lipitor] 40 mg PO QHS 02/11/19 02/11/19 Unknown History Benzonatate [Tessalon Perles] 100 mg PO Q8HR 02/11/19 02/11/19 Unknown History Citalopram [Celexa] 20 mg PO QDAY 02/11/19 02/11/19 Unknown History Levothyroxine [Synthroid] 0.5 mg PO DAILY 02/11/19 02/11/19 Unknown History Lisinopril [Zestril TAB] 2.5 mg PO QDAY 02/11/19 02/11/19 Unknown History Metoprolol [Lopressor TAB] 50 mg PO BID 02/11/19 02/11/19 Unknown History Aspirin EC [Halfprin EC] 81 mg PO QDAY #30 tablet. 02/14/19 Unknown Rx Furosemide [Lasix TAB] 40 mg PO QDAY #30 tablet 02/14/19 Unknown Rx Potassium Chloride [K-Dur] 10 meq PO QDAY #30 tablet 02/14/19 Unknown Rx Albuterol Sulfate [Albuterol 0.63% 0.63 mg IH TID PRN #100 ml 04/02/19 Unknown Rx NEBS] Albuterol Sulfate [Proventil Hfa] 2 puff IH Q4HR PRN #1 hfa.aer.ad 04/02/19 Unknown Rx Benzonatate [Tessalon Perles] 100 mg PO Q8HR PRN #20 capsule 04/02/19 Unknown Rx predniSONE [Deltasone] 50 mg PO QDAY #5 tab 04/02/19 Unknown Rx ED Physical Exam - General Limitations: No Limitations - Other Other exam information: General: No acute distress Head: Atraumatic Eyes: Normal appearance, Pupils equal and reactive to light, extraocular movements intact ENT: Normal oropharynx Neck: Normal appearance, no posterior or midline tenderness, no meningismus Chest: Tachypnea, accessory muscle use, bilateral wheezing, CPAP in progress CV: Irregular rhythm, mild tachycardia Abdomen: soft, normal bowel sounds, nontender, nondistended, no rebound or guarding Back: Nontender Extremity: Lower extremity pitting edema 1+ bilaterally. No calf tenderness., full range of motion Neuro: Alert and oriented 3, speech clear, no gross motor or sensory deficit Skin: No rash, redness, warmth ED Course Vital Signs 04/05/19 04/05/19 04/05/19 16:02 16:04 16:31 Temperature 97.4 F L Pulse Rate 107 H 113 H Pulse Rate [ Anterior Bilateral Throughout] Respiratory 18 29 H Rate Respiratory Rate [Anterior Bilateral Throughout] Blood Pressure 145/94 145/94 Blood Pressure [Left] O2 Sat by Pulse 100 100 Oximetry 04/05/19 04/05/19 16:42 19:00 Temperature 97.8 F Pulse Rate 125 H Pulse Rate [ 114 H Anterior Bilateral Throughout] Respiratory 22 Rate Respiratory 18 Rate [Anterior Bilateral Throughout] Blood Pressure Blood Pressure 151/89 [Left] O2 Sat by Pulse 99 Oximetry ED Medical Decision Making - Lab Data Result diagrams: 04/05/19 16:01 04/05/19 16:01 Lab Results 04/05/19 04/05/19 04/05/19 Range/Units 16:01 16:01 16:41 WBC 5.6 (4.5-11.0) K/mm3 RBC 4.11 (3.65-5.03) M/mm3 Hgb 12.8 (10.1-14.3) gm/dl Hct 38.8 (30.3-42.9) % MCV 94 (79-97) fl MCH 31 (28-32) pg MCHC 33 (30-34) % RDW 15.1 (13.2-15.2) % Plt Count 100 L (140-440) K/mm3 Lymph % (Auto) 33.6 (13.4-35.0) % [place] % (Auto) 8.6 H (0.0-7.3) % Eos % (Auto) 0.0 (0.0-4.3) % Baso % (Auto) 0.2 (0.0-1.8) % Lymph # 1.9 (1.2-5.4) K/mm3 [place] # 0.5 (0.0-0.8) K/mm3 Eos # 0.0 (0.0-0.4) K/mm3 Baso # 0.0 (0.0-0.1) K/mm3 Seg Neutrophils % 57.6 (40.0-70.0) % Seg Neutrophils # 3.2 (1.8-7.7) K/mm3 PT (12.2-14.9) Sec. INR (0.87-1.13) APTT (24.2-36.6) Sec. POC ABG pH 7.389 (7.35-7.45) POC ABG pCO2 32.7 L (35-45) POC ABG pO2 313 H (80-105) POC ABG HCO3 19.7 (22-26 mml/L) POC ABG Total CO2 21 (23-27mmol/L) POC ABG O2 Sat 100 POC ABG Base Excess -5 ((-2) - (+3)mmol/L) FiO2 55 % Sodium 141 (137-145) mmol/L Potassium 4.0 (3.6-5.0) mmol/L Chloride 100.8 (98-107) mmol/L Carbon Dioxide 20 L (22-30) mmol/L Anion Gap 24 mmol/L BUN 49 H (7-17) mg/dL Creatinine 1.9 H (0.7-1.2) mg/dL Estimated GFR 26 ml/min BUN/Creatinine Ratio 26 % Glucose 139 H (65-100) mg/dL Calcium 9.1 (8.4-10.2) mg/dL Total Bilirubin 0.90 (0.1-1.2) mg/dL AST 76 H (5-40) units/L ALT 67 H (7-56) units/L Alkaline Phosphatase 112 (35-129) units/L Troponin T 0.013 (0.00-0.029) ng/mL NT-Pro-B Natriuret Pep > 04240 H (0-900) pg/mL Total Protein 6.5 (6.3-8.2) g/dL Albumin 3.7 L (3.9-5) g/dL Albumin/Globulin Ratio 1.3 % 04/05/19 Range/Units Unknown WBC (4.5-11.0) K/mm3 RBC (3.65-5.03) M/mm3 Hgb (10.1-14.3) gm/dl Hct (30.3-42.9) % MCV (79-97) fl MCH (28-32) pg MCHC (30-34) % RDW (13.2-15.2) % Plt Count (140-440) K/mm3 Lymph % (Auto) (13.4-35.0) % [place] % (Auto) (0.0-7.3) % Eos % (Auto) (0.0-4.3) % Baso % (Auto) (0.0-1.8) % Lymph # (1.2-5.4) K/mm3 [place] # (0.0-0.8) K/mm3 Eos # (0.0-0.4) K/mm3 Baso # (0.0-0.1) K/mm3 Seg Neutrophils % (40.0-70.0) % Seg Neutrophils # (1.8-7.7) K/mm3 PT 17.2 H (12.2-14.9) Sec. INR 1.44 H (0.87-1.13) APTT 24.7 (24.2-36.6) Sec. POC ABG pH (7.35-7.45) POC ABG pCO2 (35-45) POC ABG pO2 (80-105) POC ABG HCO3 (22-26 mml/L) POC ABG Total CO2 (23-27mmol/L) POC ABG O2 Sat POC ABG Base Excess ((-2) - (+3)mmol/L) FiO2 % Sodium (137-145) mmol/L Potassium (3.6-5.0) mmol/L Chloride (98-107) mmol/L Carbon Dioxide (22-30) mmol/L Anion Gap mmol/L BUN (7-17) mg/dL Creatinine (0.7-1.2) mg/dL Estimated GFR ml/min BUN/Creatinine Ratio % Glucose (65-100) mg/dL Calcium (8.4-10.2) mg/dL Total Bilirubin (0.1-1.2) mg/dL AST (5-40) units/L ALT (7-56) units/L Alkaline Phosphatase (35-129) units/L Troponin T (0.00-0.029) ng/mL NT-Pro-B Natriuret Pep (0-900) pg/mL Total Protein (6.3-8.2) g/dL Albumin (3.9-5) g/dL Albumin/Globulin Ratio % - EKG Data -: EKG Interpreted by Me (A. fib rate 103 left bundle branch block) - EKG Data When compared to previous EKG there are: no significant change - Radiology Data Radiology results: report reviewed CHEST 2 VIEWS INDICATION: sob. COMPARISON: 04/02/2019 and 02/11/2019 FINDINGS: Support devices: None. Heart: Stable cardiomegaly. Pulmonary vasculature: Increased with indistinct vessels. Lungs/pleura: Mild bilateral perihilar reticular interstitial opacities. No pulmonary consolidation. No pleural effusion. No pneumothorax. Additional findings: None. IMPRESSION: 1. Worsened CHF with mild perihilar interstitial pulmonary edema. - Medical Decision Making Patient improving with ED treatment which included additional neb treatment and BiPAP support. ABG does not show any CO2 retention and oxygen was adjusted (decreased). Hospitalist informed for admission. - Differential Diagnosis pneumonia, bronchitis, COPD, pneumothorax, CHF, PE Critical Care Time: No Critical care attestation.: If time is entered above; I have spent that time in minutes in the direct care of this critically ill patient, excluding procedure time. ED Disposition Clinical Impression: CHF (congestive heart failure), COPD exacerbation, Chronic atrial fibrillation, Current use of detention anticoagulation Disposition: OP ADMIT IP TO THIS HOSP Is pt being admited?: Yes Condition: Stable Time of Disposition: 18:52 (dR [facility]/HOSP)
[2019-04-05] MEDS ORDERED: CARDIZEM IV ONE (19:34)
[2019-04-05] MEDS ORDERED: ZOFRAN IV PRN (19:46)
[2019-04-05] MEDS ORDERED: TYLENOL PO PRN (19:46)
[2019-04-05] MEDS ORDERED: SODIUM CHLORIDE FLUSH SYRINGE 10 ML IV PRN (19:46)
--- NOTE | 2019-04-05 20:49 | History and Physical Report ---
History of Present Illness Date of examination: 04/05/19 Date of admission: 04/05/2019 Chief complaint: Difficulty breathing History of present illness: 63-year-old female who is a former smoker with history of HTN, COPD, CHF, A. fib with RVR , CVA, nonischemic dilated cardiomyopathy, hypothyroidism who presents to [facility] ED with complaints of difficulty breathing and for the past 2 days. Of note pt was seen in ED on three days ago (04/02) with similar com plaints. She was treat with nebulizer tx and IV steriods with improvement in symptoms. She was discharge on nebulizer tx, oral prednisone, and Tessalon Perles. One day later her symptoms began to worsened. She continued with nebs and oral steriods with no relief. Upon arrival to ED she was noted to be hypoxic and placed on BiPaP. Also complains of cough with occasional sputum production. Denies: n/v/d, dizziness, fever, headache, CP, recent tobacco use, or recent sick contact Past History Past Medical History: atrial fib (with RVR on Eliquis), COPD, heart failure (EF 20-25%), hypertension, stroke, other (hypothyroidism, non ischemic dilated cardiomyopathy) Past Surgical History: Other (breast sx) Social history: other (former smoker) Medications and Allergies Allergies Allergy/AdvReac Type Severity Reaction Status Date / Time No Known Allergies Allergy Verified 10/19/18 14:21 Home Medications Medication Instructions Recorded Confirmed Last Taken Type Apixaban [Eliquis] 2.5 mg PO HS 02/11/19 04/05/19 Unknown History Citalopram [Celexa] 20 mg PO QDAY 02/11/19 04/05/19 Unknown History Levothyroxine [Synthroid] 0.05 mg PO DAILY 02/11/19 04/05/19 Unknown History Lisinopril [Zestril TAB] 2.5 mg PO QDAY 02/11/19 04/05/19 Unknown History Metoprolol [Lopressor TAB] 25 mg PO BID 02/11/19 04/05/19 Unknown History Aspirin EC [Halfprin EC] 81 mg PO QDAY #30 tablet. 02/14/19 04/05/19 Unknown Rx Furosemide [Lasix TAB] 40 mg PO QDAY #30 tablet 02/14/19 04/05/19 Unknown Rx Potassium Chloride [K-Dur] 10 meq PO QDAY #30 tablet 02/14/19 04/05/19 Unknown Rx Albuterol Sulfate [Proventil Hfa] 2 puff IH Q4HR PRN #1 hfa.aer.ad 04/02/19 04/05/19 Unknown Rx Megestrol Acetate 400 mg PO BID 04/05/19 04/05/19 Unknown History Rosuvastatin Calcium 40 mg PO QDAY 04/05/19 04/05/19 Unknown History Tiotropium [place] [Spiriva 2.5 mcg IH DAILY 04/05/19 04/05/19 Unknown History Respimat] Active Meds: Active Medications Acetaminophen (Tylenol) 650 mg PO Q4H PRN PRN Reason: Pain MILD(1-3)/Fever >100.5/VAZQUEZ Albuterol (Proventil) 2.5 mg IH Q3HRT PRN PRN Reason: Shortness Of Breath Albuterol/Ipratropium (Duoneb *Not For Prn Use*) 1 ampul IH Q6HRT [facility] Apixaban (Eliquis) 2.5 mg PO HS ANGÉLICA; Protocol Aspirin (Halfprin Ec) 81 mg PO QDAY ANÉGLICA Budesonide (Pulmicort) 0.5 mg IH Q12HRT [facility] Citalopram Hydrobromide (Celexa) 20 mg PO QDAY ANG[facility]LICA Docusate Sodium (Colace) 100 mg PO BID [facility] Furosemide (Lasix) 40 mg IV DAILY [facility] Levothyroxine Sodium (Synthroid) 50 mcg PO DAILY [facility] Megestrol Acetate (Megace) 400 mg PO BID [facility] Methylprednisolone Sodium Succinate (Solu-Medrol) 60 mg IV Q8HR [facility] Metoprolol Tartrate (Lopressor) 25 mg PO BID [facility] Miscellaneous Medication (Rosuvastatin Calcium [Rosuvastatin Calcium]) 40 mg PO QDAY [facility] Miscellaneous Medication (Tiotropium [place] [Spiriva Respimat]) 2.5 mcg IH DAILY [facility] Ondansetron HCl (Zofran) 4 mg IV Q8H PRN PRN Reason: Nausea And Vomiting Potassium Chloride (K-Dur) 10 meq PO QDAY [facility] Sodium Chloride (Sodium Chloride Flush Syringe 10 Ml) 10 ml IV BID [facility] Sodium Chloride (Sodium Chloride Flush Syringe 10 Ml) 10 ml IV PRN PRN PRN Reason: LINE FLUSH Review of Systems All systems: negative Cardiovascular: orthopnea, edema, shortness of breath, dyspnea on exertion, leg edema Respiratory: cough, shortness of breath, dyspnea on exertion, congestion, wheezing Exam - Physical Exam Narrative exam: Physical exam General appearance: Present: Mild discomfort, alert and oriented 3, looks older than stated age, chronically ill-appearing, older adult female - EENT Eyes: Present: PERRL, EOM intact ENT: hearing intact, 17th - Neck Neck: Present: supple, normal ROM - Respiratory Respiratory effort: Labored, on BiPAP Respiratory: Wheezing throughout with diminished bases - Cardiovascular Heart rate: 113 (bpm) Rhythm: Afib Heart Sounds: Present: S1 & S2. Absent: rub, click - Extremities Extremities: no ischemia, pulses intact, abnormal (lateral lower extremity edema R>L) - Peripheral Assessment Peripheral Pulses: within normal limits - Abdominal General gastrointestinal: soft, non-tender, normal bowel sounds - Integumentary Integumentary: Present: warm, dry - Musculoskeletal Musculoskeletal: generalized weakness -Neurological Neurological: CN II-XII grossly intact - Psychiatric Psychiatric: cooperative - Constitutional Vitals: Temp Pulse Resp BP Pulse Ox 97.8 F 112 H 19 153/77 100 04/05/19 19:00 04/05/19 20:15 04/05/19 20:15 04/05/19 20:15 04/05/19 20:15 Results - Labs CBC & Chem 7: 04/05/19 16:01 04/05/19 16:01 Labs: Laboratory Last Values WBC 5.6 K/mm3 (4.5-11.0) 04/05/19 16:01 RBC 4.11 M/mm3 (3.65-5.03) 04/05/19 16:01 Hgb 12.8 gm/dl (10.1-14.3) 04/05/19 16:01 Hct 38.8 % (30.3-42.9) 04/05/19 16:01 MCV 94 fl (79-97) 04/05/19 16:01 MCH 31 pg (28-32) 04/05/19 16:01 MCHC 33 % (30-34) 04/05/19 16:01 RDW 15.1 % (13.2-15.2) 04/05/19 16:01 Plt Count 100 K/mm3 (140-440) L 04/05/19 16:01 Lymph % (Auto) 33.6 % (13.4-35.0) 04/05/19 16:01 Hunt % (Auto) 8.6 % (0.0-7.3) H 04/05/19 16:01 Eos % (Auto) 0.0 % (0.0-4.3) 04/05/19 16:01 Baso % (Auto) 0.2 % (0.0-1.8) 04/05/19 16:01 Lymph # 1.9 K/mm3 (1.2-5.4) 04/05/19 16:01 Hunt # 0.5 K/mm3 (0.0-0.8) 04/05/19 16:01 Eos # 0.0 K/mm3 (0.0-0.4) 04/05/19 16:01 Baso # 0.0 K/mm3 (0.0-0.1) 04/05/19 16:01 Seg Neutrophils % 57.6 % (40.0-70.0) 04/05/19 16:01 Seg Neutrophils # 3.2 K/mm3 (1.8-7.7) 04/05/19 16:01 PT 17.2 Sec. (12.2-14.9) H 04/05/19 Unknown INR 1.44 (0.87-1.13) H 04/05/19 Unknown APTT 24.7 Sec. (24.2-36.6) 04/05/19 Unknown POC ABG pH 7.389 (7.35-7.45) 04/05/19 16:41 POC ABG pCO2 32.7 (35-45) L 04/05/19 16:41 POC ABG pO2 313 (80-105) H 04/05/19 16:41 POC ABG HCO3 19.7 (22-26 mml/L) 04/05/19 16:41 POC ABG Total CO2 21 (23-27mmol/L) 04/05/19 16:41 POC ABG O2 Sat 100 04/05/19 16:41 POC ABG Base Excess -5 ((-2) - (+3)mmol/L) 04/05/19 16:41 55 % 04/05/19 16:41 Sodium 141 mmol/L (137-145) 04/05/19 16:01 Potassium 4.0 mmol/L (3.6-5.0) 04/05/19 16:01 Chloride 100.8 mmol/L (98-107) 04/05/19 16:01 Carbon Dioxide 20 mmol/L (22-30) L 04/05/19 16:01 24 mmol/L 04/05/19 16:01 BUN 49 mg/dL (7-17) H 04/05/19 16:01 1.9 mg/dL (0.7-1.2) H 04/05/19 16:01 Estimated GFR 26 ml/min 04/05/19 16:01 26 % 04/05/19 16:01 Glucose 139 mg/dL (65-100) H 04/05/19 16:01 Calcium 9.1 mg/dL (8.4-10.2) 04/05/19 16:01 0.90 mg/dL (0.1-1.2) 04/05/19 16:01 AST 76 units/L (5-40) H 04/05/19 16:01 ALT 67 units/L (7-56) H 04/05/19 16:01 112 units/L (35-129) 04/05/19 16:01 0.013 ng/mL (0.00-0.029) 04/05/19 16:01 NT-Pro-B Natriuret Pep > 78188 pg/mL (0-900) H 04/05/19 16:01 6.5 g/dL (6.3-8.2) 04/05/19 16:01 3.7 g/dL (3.9-5) L 04/05/19 16:01 1.3 % 04/05/19 16:01 - Imaging and Cardiology Imaging and Cardiology: CXR: FINDINGS: Support devices: None. Heart: Stable cardiomegaly. Pulmonary vasculature: Increased with indistinct vessels. Lungs/pleura: Mild bilateral perihilar reticular interstitial opacities. No pulmonary consolidation. No pleural effusion. No pneumothorax. Additional findings: None. IMPRESSION: 1. Worsened CHF with mild perihilar interstitial pulmonary edema. Assessment and Plan Assessment and plan: 63-year-old female who is a former smoker with history of HTN, COPD, C HF, A. fib with RVR , CVA, nonischemic dilated cardiomyopathy, hypothyroidism who presents to [facility] ED with complaints of difficulty breathing and for the past 2 days. Acute exacerbation of COPD -Scheduled DuoNebs and Pulmicort, Albuterol prn -Systemic steriods -Mucinex Acute Hypoxic Respiratory Failure -No baseline oxygen requirements -hypoxic on RA -Currently on BiPAP -ABG 7.389/32.7/313/19.7 (done on 55% FiO2) -Monitor saturations wean as tolerate Acute on chronic heart failure -Initiate CHF protocol -CXR showed: Worsened CHF with mild perihilar interstitial [place] [address] -EF 20-25% on Echo (10/2018) -Diurese with IV diuretics -Cardiology consulted Acute kidney injury -Cr 1.9 with GFR 26 on this admission -Baseline Cr 1.1 - 1.2 (01/2019) -Gentle hyrdration with IVF -Avoid nephrotoxic agents -Renal dose all meds -Nephrology consulted Atrial fibrillation with RVR -On anticoagulation with Eliquis -Continuous telemetry monitoring Hypertension -Continue to monitor BP -Hold JUAN -Resume home antihypertensive meds -IV hydralazine when necessary DVT PPX -on Eliquis -SCD's
[2019-04-05] MEDS: DUONEB *Not for PRN Use IH SCH (20:57)
[2019-04-05] MEDS: PULMICORT IH SCH (20:57)
[2019-04-05] MEDS ORDERED: APRESOLINE IV PRN (21:16)
[2019-04-05] MEDS ORDERED: NACL 0.9% 1000 ML 1,000 ML IV SCH (22:00)
[2019-04-05] MEDS ORDERED: COLACE ONE (22:06)
[2019-04-05] MEDS ORDERED: LOPRESSOR ONE (22:07)
[2019-04-05] MEDS ORDERED: SOLU-Medrol ONE ×2 (22:08→22:11)
[2019-04-05] MEDS ORDERED: MUCINEX ER PO ONE (22:08)
[2019-04-05] MEDS: SODIUM CHLORIDE FLUSH SYRINGE 10 ML IV SCH (22:16)
[2019-04-05] MEDS: COLACE PO SCH (22:16)
[2019-04-05] MEDS: SOLU-Medrol IV SCH (22:16)
[2019-04-05] MEDS: LOPRESSOR PO SCH (22:16)
[2019-04-05] MEDS: MUCINEX ER PO SCH (22:16)
[2019-04-05] MEDS: MEGACE PO SCH (23:11)
[2019-04-05] MEDS: ELIQUIS PO SCH (23:22)
[2019-04-06] MEDS: DUONEB *Not for PRN Use IH SCH ×4 (02:12→19:28)
[2019-04-06] MEDS: SOLU-Medrol IV SCH ×3 (06:06→22:11)
[2019-04-06 06:15] LABS: Hematocrit 37.5 % (30.3-42.9); Hemoglobin 12.6 gm/dl (10.1-14.3); Mean Corpuscular HGB Conc 34 % (30-34); Mean Corpuscular Volume 93 fl (79-97); Red Blood Count 4.04 M/mm3 (3.65-5.03); Red Cell Distribution Width 15.1 % (13.2-15.2)
[2019-04-06 06:38] LABS: Calcium 8.9 mg/dL (8.4-10.2)
[2019-04-06 07:57] LABS: Basophils % (Manual) 0 % (0.0-1.8); Eosinophils % (Manual) 0 % (0.0-4.3); Total Cells Counted 100
[2019-04-06 07:58] LABS: Large Platelets Rare
[2019-04-06 07:59] LABS: Platelet Estimate Cons
[2019-04-06] MEDS: PULMICORT IH SCH ×2 (08:08→19:28)
[2019-04-06 08:19] LABS: Platelet Count 91 K/mm3 (140-440)
[2019-04-06] MEDS: LASIX IV SCH (09:35)
[2019-04-06] MEDS: K-DUR PO SCH (09:38)
[2019-04-06] MEDS: celeXA PO SCH (09:38)
[2019-04-06] MEDS: COLACE PO SCH ×2 (09:38→22:09)
[2019-04-06] MEDS: SYNTHROID PO SCH (09:38)
[2019-04-06] MEDS: LOPRESSOR PO SCH ×2 (09:38→22:11)
[2019-04-06] MEDS: HALFPRIN EC PO SCH (09:38)
[2019-04-06] MEDS: MUCINEX ER PO SCH ×2 (09:39→22:09)
[2019-04-06] MEDS: SODIUM CHLORIDE FLUSH SYRINGE 10 ML IV SCH (09:39)
[2019-04-06] MEDS: MEGACE PO SCH ×2 (09:39→22:10)
[2019-04-06] MEDS ORDERED: NON-FORMULARY (Rosuvastatin Calcium [Rosuvastatin Calcium] 40 MG) PO SCH (10:00)
[2019-04-06] MEDS ORDERED: LASIX PO SCH (10:00)
[2019-04-06] MEDS ORDERED: TIOTROPIUM BROMIDE 2.5 MCG IH SCH (10:00)
--- NOTE | 2019-04-06 10:28 | Consultation ---
History of Present Illness - Reason for Consult Consult date: 04/06/19 acute renal failure - History of Present Illness This is a 73 y/o F with PMH of HTN for past 10 yrs, COPD, CHF (EF 20-25%), non- ischemic dilated cardiomyopathy, CVA, AFib with RVR on Eliquis, and hypothyroidism who presented to [facility] ED with c/o worsening shortness of breath and productive cough with white sputum. Pt was previously seen in the ED on 04/02/19 and was treated with IV steroids, Nebs, and discharged on oral prednisone, Nebs, and Tessalon Perles per medical record. On admission, SCr level was 1.9, today's SCr level was 1.8. Pt states she was told by her PCP she had abnormal renal function and needed to see a systems engineering manager, but she hadn't seen a systems engineering manager yet. Pt denies NSAIDs use. Pt states she has been eating ok, denies nausea or vomiting. BNP >35,000. Cardiology consulted, f/u recs. We were consulted to evaluate this pt who has BUTCH. . Past History Past Medical History: atrial fib (with RVR on Eliquis), COPD, heart failure (EF 20-25%), hypertension, stroke, other (hypothyroidism, non ischemic dilated cardiomyopathy) Past Surgical History: Other (breast sx) Social history: other (former smoker) Medications and Allergies Allergies Allergy/AdvReac Type Severity Reaction Status Date / Time No Known Allergies Allergy Verified 10/19/18 14:21 Home Medications Medication Instructions Recorded Confirmed Last Taken Type Apixaban [Eliquis] 2.5 mg PO HS 02/11/19 04/05/19 Unknown History Citalopram [Celexa] 20 mg PO QDAY 02/11/19 04/05/19 Unknown History Levothyroxine [Synthroid] 0.05 mg PO DAILY 02/11/19 04/05/19 Unknown History Lisinopril [Zestril TAB] 2.5 mg PO QDAY 02/11/19 04/05/19 Unknown History Metoprolol [Lopressor TAB] 25 mg PO BID 02/11/19 04/05/19 Unknown History Aspirin EC [Halfprin EC] 81 mg PO QDAY #30 tablet. 02/14/19 04/05/19 Unknown Rx Furosemide [Lasix TAB] 40 mg PO QDAY #30 tablet 02/14/19 04/05/19 Unknown Rx Potassium Chloride [K-Dur] 10 meq PO QDAY #30 tablet 02/14/19 04/05/19 Unknown Rx Albuterol Sulfate [Proventil Hfa] 2 puff IH Q4HR PRN #1 hfa.aer.ad 04/02/19 04/05/19 Unknown Rx Megestrol Acetate 400 mg PO BID 04/05/19 04/05/19 Unknown History Rosuvastatin Calcium 40 mg PO QDAY 04/05/19 04/05/19 Unknown History Tiotropium [place] [Spiriva 2.5 mcg IH DAILY 04/05/19 04/05/19 Unknown History Respimat] Active Meds: Active Medications Acetaminophen (Tylenol) 650 mg PO Q4H PRN PRN Reason: Pain MILD(1-3)/Fever >100.5/VAZQUEZ Albuterol (Proventil) 2.5 mg IH Q3HRT PRN PRN Reason: Shortness Of Breath Albuterol/Ipratropium (Duoneb *Not For Prn Use*) 1 ampul IH Q6HRT [facility] Last Admin: 04/06/19 08:08 Dose: 1 ampul Documented by: Apixaban (Eliquis) 2.5 mg PO HS [facility]; Protocol Last Admin: 04/05/19 23:22 Dose: 2.5 mg Documented by: Aspirin (Halfprin Ec) 81 mg PO QDAY [facility] Last Admin: 04/06/19 09:38 Dose: 81 mg Documented by: Atorvastatin Calcium (Lipitor) 40 mg PO QHS [facility] Last Admin: 04/05/19 22:16 Dose: 40 mg Documented by: Budesonide (Pulmicort) 0.5 mg IH Q12HRT [facility] Last Admin: 04/06/19 08:08 Dose: 0.5 mg Documented by: Citalopram Hydrobromide (Celexa) 20 mg PO QDAY [facility] Last Admin: 04/06/19 09:38 Dose: 20 mg Documented by: Docusate Sodium (Colace) 100 mg PO BID [facility] Last Admin: 04/06/19 09:38 Dose: 100 mg Documented by: Furosemide (Lasix) 40 mg IV DAILY [facility] Last Admin: 04/06/19 09:35 Dose: 40 mg Documented by: Guaifenesin (Mucinex Er) 600 mg PO BID [facility] Last Admin: 04/06/19 09:39 Dose: 600 mg Documented by: Hydralazine HCl (Apresoline) 10 mg IV Q4HR PRN PRN Reason: Blood Pressure Sodium Chloride (Nacl 0.9% 1000 Ml) 1,000 mls @ 42 mls/hr IV DIRECT [facility] Last Admin: 04/05/19 23:21 Dose: 42 mls/hr Documented by: Levothyroxine Sodium (Synthroid) 50 mcg PO DAILY [facility] Last Admin: 04/06/19 09:38 Dose: 50 mcg Documented by: Megestrol Acetate (Megace) 400 mg PO BID [facility] Last Admin: 04/06/19 09:39 Dose: 400 mg Documented by: Methylprednisolone Sodium Succinate (Solu-Medrol) 60 mg IV Q8HR [facility] Last Admin: 04/06/19 06:06 Dose: 60 mg Documented by: Metoprolol Tartrate (Lopressor) 25 mg PO BID [facility] Last Admin: 04/06/19 09:38 Dose: 25 mg Documented by: Ondansetron HCl (Zofran) 4 mg IV Q8H PRN PRN Reason: Nausea And Vomiting Potassium Chloride (K-Dur) 10 meq PO QDAY [facility] Last Admin: 04/06/19 09:38 Dose: 10 meq Documented by: Sodium Chloride (Sodium Chloride Flush Syringe 10 Ml) 10 ml IV BID [facility] Last Admin: 04/06/19 09:39 Dose: 10 ml Documented by: Sodium Chloride (Sodium Chloride Flush Syringe 10 Ml) 10 ml IV PRN PRN PRN Reason: LINE FLUSH Last Admin: 04/06/19 06:07 Dose: 10 ml Documented by: Review of Systems Constitutional: fatigue, weakness Cardiovascular: shortness of breath, dyspnea on exertion Respiratory: cough with sputum, shortness of breath, dyspnea on exertion Gastrointestinal: no abdominal pain, no nausea, no vomiting, no diarrhea, no constipation Integumentary: no wounds Neurological: weakness Exam - Vital Signs Vital signs: Vital Signs Pulse Resp 110 H 24 04/05/19 15:56 04/05/19 15:56 - General Appearance General appearance: other (awake) EENT: ATNC Neck: Present: neck supple Respiratory: Decreased Breath Sounds Heart: regular, S1S2 Gastrointestinal: Present: normoactive bowel sounds. Absent: tenderness Integumentary: warm and dry Neurologic: alert and oriented x3 Musculoskeletal: Present: other (1+ edema to BLE) Psychiatric: cooperative Results - Lab Results 04/06/19 05:36 04/06/19 05:36 Most recent lab results Calcium 8.9 mg/dL (8.4-10.2) 04/06/19 05:36 Assessment and Plan Acute hypoxic respiratory failure Acute Exacerbation of COPD Acute Kidney Injury possibly secondary to prerenal, cardiorenal syndrome, on underlying CKD, r/o obstruction Acute on chronic systolic CHF Essential HTN Atrial Fibrillation with RVR on Eliquis Hypothyroidism Hx of CVA Plan: -Renal function reviewed, SCr level was 1.8 today, yesterday's SCr level was 1.9 -Review of labs in [facility] labs from 2016-March of 2019 showed SCr level between 0.8-1.8 -Obtain Renal US -CXR showed worsening CHF with perihilar interstitial pulmonary edema -D/C IV fluids -Currently on Lasix 40 mg IV daily for now, will adjust as needed -Holding lisinopril for now -Check PTH and phosphorus -Check UA -Check urine lytes/protein -Monitor blood pressures closely -Renally dose meds -Dominguez Catheter: No -Renal plan d/w Dr Piña
--- NOTE | 2019-04-06 11:39 | Consultation ---
History of Present Illness Consult date: 04/06/19 Requesting physician: DORI FREEMAN Consult reason: atrial fibrillation History of present illness: The pt is a 73 YO female with a past medical history of chronic atrial fibrillation, anticoagulated on Eliquis, HFrEF, NICMP, HTN, LBBB, CVA, COPD, tobacco use (says she quit smoking 1 month ago). She has been seen by our practice on prior hospitalizations but has admittedly not been compliant with OP follow up. She only regularly sees her PCP, Dr. Salgado. She presented with c/o SOB, wheezing and occasionally productive cough for 3-4 days prior to arrival. She also reports intermittent palpitations. She denies any chest pain, n/v, dizziness or syncope. Of note, pt was seen in ED on 04/02 with similar complaint s. She was treated with nebulizer and IV steriods with improvement in symptoms. She was discharged on nebulizer tx, oral prednisone, and Tessalon Perles. One day later her symptoms began to worsen and thus decided to return to ED. Upon arrival to ED she was noted to be hypoxic and placed on BiPaP. She has been weaned down to O2 via nasal cannula on evaluation. LHC done 07/2017 showed mildly dilated LV, EF 40-45%, minimal coronary irregularities. Echo done 10/2018 showed EF 20-25%, septal wall hypertrophy, impaired relaxation, LA mildly dilated, RV systolic function mildly reduced, trivial pericardial effusion. Past History Past Medical History: atrial fib (with RVR on Eliquis), COPD, heart failure (EF 20-25%), hypertension, stroke, other (hypothyroidism, non ischemic dilated cardiomyopathy) Past Surgical History: Other (breast sx) Social history: other (former smoker) Medications and Allergies Allergies Allergy/AdvReac Type Severity Reaction Status Date / Time No Known Allergies Allergy Verified 10/19/18 14:21 Home Medications Medication Instructions Recorded Confirmed Last Taken Type Apixaban [Eliquis] 2.5 mg PO HS 02/11/19 04/05/19 Unknown History Citalopram [Celexa] 20 mg PO QDAY 02/11/19 04/05/19 Unknown History Levothyroxine [Synthroid] 0.05 mg PO DAILY 02/11/19 04/05/19 Unknown History Lisinopril [Zestril TAB] 2.5 mg PO QDAY 02/11/19 04/05/19 Unknown History Metoprolol [Lopressor TAB] 25 mg PO BID 02/11/19 04/05/19 Unknown History Aspirin EC [Halfprin EC] 81 mg PO QDAY #30 tablet. 02/14/19 04/05/19 Unknown Rx Furosemide [Lasix TAB] 40 mg PO QDAY #30 tablet 02/14/19 04/05/19 Unknown Rx Potassium Chloride [K-Dur] 10 meq PO QDAY #30 tablet 02/14/19 04/05/19 Unknown Rx Albuterol Sulfate [Proventil Hfa] 2 puff IH Q4HR PRN #1 hfa.aer.ad 04/02/19 04/05/19 Unknown Rx Megestrol Acetate 400 mg PO BID 04/05/19 04/05/19 Unknown History Rosuvastatin Calcium 40 mg PO QDAY 04/05/19 04/05/19 Unknown History Tiotropium [place] [Spiriva 2.5 mcg IH DAILY 04/05/19 04/05/19 Unknown History Respimat] Active Meds: Active Medications Acetaminophen (Tylenol) 650 mg PO Q4H PRN PRN Reason: Pain MILD(1-3)/Fever >100.5/VAZQUEZ Albuterol (Proventil) 2.5 mg IH Q3HRT PRN PRN Reason: Shortness Of Breath Albuterol/Ipratropium (Duoneb *Not For Prn Use*) 1 ampul IH Q6HRT [facility] Last Admin: 04/06/19 08:08 Dose: 1 ampul Documented by: Apixaban (Eliquis) 2.5 mg PO [facility]; Protocol Last Admin: 04/05/19 23:22 Dose: 2.5 mg Documented by: Aspirin (Halfprin Ec) 81 mg PO QDAY [facility] Last Admin: 04/06/19 09:38 Dose: 81 mg Documented by: Atorvastatin Calcium (Lipitor) 40 mg PO QHS [facility] Last Admin: 04/05/19 22:16 Dose: 40 mg Documented by: Budesonide (Pulmicort) 0.5 mg IH Q12HRT [facility] Last Admin: 04/06/19 08:08 Dose: 0.5 mg Documented by: Citalopram Hydrobromide (Celexa) 20 mg PO QDAY [facility] Last Admin: 04/06/19 09:38 Dose: 20 mg Documented by: Docusate Sodium (Colace) 100 mg PO BID [facility] Last Admin: 04/06/19 09:38 Dose: 100 mg Documented by: Furosemide (Lasix) 40 mg IV DAILY [facility] Last Admin: 04/06/19 09:35 Dose: 40 mg Documented by: Guaifenesin (Mucinex Er) 600 mg PO BID [facility] Last Admin: 04/06/19 09:39 Dose: 600 mg Documented by: Hydralazine HCl (Apresoline) 10 mg IV Q4HR PRN PRN Reason: Blood Pressure Sodium Chloride (Nacl 0.9% 1000 Ml) 1,000 mls @ 42 mls/hr IV DIRECT [facility] Last Admin: 04/05/19 23:21 Dose: 42 mls/hr Documented by: Levothyroxine Sodium (Synthroid) 50 mcg PO DAILY [facility] Last Admin: 04/06/19 09:38 Dose: 50 mcg Documented by: Megestrol Acetate (Megace) 400 mg PO BID [facility] Last Admin: 04/06/19 09:39 Dose: 400 mg Documented by: Methylprednisolone Sodium Succinate (Solu-Medrol) 60 mg IV Q8HR [facility] Last Admin: 04/06/19 06:06 Dose: 60 mg Documented by: Metoprolol Tartrate (Lopressor) 25 mg PO BID [facility] Last Admin: 04/06/19 09:38 Dose: 25 mg Documented by: Ondansetron HCl (Zofran) 4 mg IV Q8H PRN PRN Reason: Nausea And Vomiting Potassium Chloride (K-Dur) 10 meq PO QDAY [facility] Last Admin: 04/06/19 09:38 Dose: 10 meq Documented by: Sodium Chloride (Sodium Chloride Flush Syringe 10 Ml) 10 ml IV BID [facility] Last Admin: 04/06/19 09:39 Dose: 10 ml Documented by: Sodium Chloride (Sodium Chloride Flush Syringe 10 Ml) 10 ml IV PRN PRN PRN Reason: LINE FLUSH Last Admin: 04/06/19 06:07 Dose: 10 ml Documented by: Review of Systems Constitutional: no weight loss, no weight gain, no fever, no chills, no sweats Ears, nose, mouth and throat: no ear pain, no nose pain, no sinus pressure, no sinus pain Cardiovascular: palpitations, rapid/irregular heart beat, shortness of breath, dyspnea on exertion, no chest pain, no orthopnea, no edema, no syncope, no lightheadedness, no high blood pressure Respiratory: cough, cough with sputum, shortness of breath, dyspnea on exertion, congestion, wheezing, no pain on inspiration Gastrointestinal: no abdominal pain, no nausea, no vomiting, no diarrhea, no constipation, no change in bowel habits Genitourinary Female: no pelvic pain, no flank pain, no dysuria, no urinary frequency, no urgency Musculoskeletal: no neck stiffness, no neck pain, no shooting arm pain, no arm numbness/tingling, no low back pain, no shooting leg pain Integumentary: no rash, no pruritis, no redness, no sores, no wounds Neurological: no head injury, no paralysis, no weakness, no parathesias, no numbness, no tingling, no seizures, no syncope Psychiatric: no anxiety Endocrine: no cold intolerance, no heat intolerance Hematologic/Lymphatic: no easy bruising, no easy bleeding Allergic/Immunologic: wheezing, no urticaria Physical Examination Vital Signs Pulse Resp 110 H 24 04/05/19 15:56 04/05/19 15:56 General appearance: no acute distress HEENT: Positive: PERRL, Normocephaly, Mucus Membranes Moist Neck: Positive: neck supple, trachea midline Cardiac: Positive: irregularly irregular, S1/S2, Tachycardia Lungs: Positive: Wheezes Neuro: Positive: Grossly Intact Abdomen: Negative: Tender Skin: Negative: Rash Musculoskeletal: No Pain Extremities: Absent: edema Results 04/06/19 05:36 04/06/19 05:36 Cardiac Enzymes 04/05/19 Range/Units 16:01 AST 76 H (5-40) units/L Coagulation 04/05/19 Range/Units Unknown PT 17.2 H (12.2-14.9) Sec. INR 1.44 H (0.87-1.13) APTT 24.7 (24.2-36.6) Sec. CBC 04/05/19 04/06/19 Range/Units 16:01 05:36 WBC 5.6 2.2 L (4.5-11.0) K/mm3 RBC 4.11 4.04 (3.65-5.03) M/mm3 Hgb 12.8 12.6 (10.1-14.3) gm/dl Hct 38.8 37.5 (30.3-42.9) % Plt Count 100 L 91 L (140-440) K/mm3 Lymph # 1.9 (1.2-5.4) K/mm3 [place] # 0.5 0.0 (0.0-0.8) K/mm3 Eos # 0.0 0.0 (0.0-0.4) K/mm3 Baso # 0.0 0.0 (0.0-0.1) K/mm3 Comprehensive Metabolic Panel 04/05/19 04/06/19 Range/Units 16:01 05:36 Sodium 141 142 (137-145) mmol/L Potassium 4.0 4.0 (3.6-5.0) mmol/L Chloride 100.8 103.4 (98-107) mmol/L Carbon Dioxide 20 L 20 L (22-30) mmol/L BUN 49 H 53 H (7-17) mg/dL Creatinine 1.9 H 1.8 H (0.7-1.2) mg/dL Glucose 139 H 185 H (65-100) mg/dL Calcium 9.1 8.9 (8.4-10.2) mg/dL AST 76 H (5-40) units/L ALT 67 H (7-56) units/L Alkaline Phosphatase 112 (35-129) units/L Total Protein 6.5 (6.3-8.2) g/dL Albumin 3.7 L (3.9-5) g/dL - Imaging and Cardiology Echo: report reviewed (10/2018 showed EF 20-25%, septal wall hypertrophy, impaired relaxation, LA mildly dilated, RV systolic function mildly reduced, trivial pericardial effusion.) Cardiac cath: report reviewed ( 07/2017 showed mildly dilated LV, EF 40-45%, minimal coronary irregularities. ) EKG: report reviewed, image reviewed EKG interpretations - Telemetry EKG Rhythm: Atrial Fibrillation - EKG Supraventricular dysrhythmia: atrial fibrillation Assessment and Plan Optimize HR - cont lopressor and initiate PO amio as BPs are marginally low (will load with 400mg TID today and reduce dosage to 200mg BID from tomorrow). LFTs are noted to be minimally elevated - repeat CMP in AM. Pt has h/o digoxin toxicity in setting of renal insufficiency. Continue Eliquis. Agree with holding ACEI/ARB in setting of renal insufficiency. The patient has been seen in conjunction with Dr. Moss who agrees with the assessment and plan of care. - Patient Problems (1) Permanent atrial fibrillation with RVR Current Visit: Yes Status: Acute (2) COPD exacerbation Current Visit: Yes Status: Acute (3) Acute respiratory failure Current Visit: Yes Status: Acute Qualifiers: Respiratory failure complication: hypoxia Qualified Code(s): J96.01 - Acute respiratory failure with hypoxia (4) Nonischemic dilated cardiomyopathy Current Visit: Yes Status: Chronic (5) Renal insufficiency Current Visit: Yes Status: Chronic (6) HTN (hypertension) Current Visit: Yes Status: Chronic Qualifiers: Hypertension type: essential hypertension Qualified Code(s): I10 - Essential (primary) hypertension (7) History of CVA (cerebrovascular accident) Current Visit: Yes Status: Chronic (8) Tobacco use Current Visit: Yes Status: Chronic
[2019-04-06] MEDS: CORDARONE PO SCH ×3 (13:00→21:10)
--- NOTE | 2019-04-06 17:25 | Progress Note ---
Assessment and Plan Assessment and plan: Patient is a 63-year-old female who is a former smoker with history of HTN, COPD, CHF, A. fib with RVR , CVA, nonischemic dilated cardiomyopathy, hypothyroidism who presents to [facility] ED with complaints of difficulty breathing and for the past 2 days. Of note pt was seen in ED on three days ago (04/02) with similar complaints. She was treat with nebulizer tx and IV steriods with improvement in symptoms. She was discharge on nebulizer tx, oral prednisone, and Tessalon Perles. One day later her symptoms began to worsened. She continued with nebs and oral steriods with no relief. Upon arrival to ED she was noted to be hypoxic and placed on BiPaP. Also complains of cough with occasional sputum production. * Echo: report reviewed (10/2018 showed EF 20-25%, septal wall hypertrophy, impaired relaxation, LA mildly dilated, RV systolic function mildly reduced, trivial pericardial effusion.) * Cardiac cath 07/2017 showed mildly dilated LV, EF 40-45%, minimal coronary irregularities * EKG: report reviewed, image reviewed: Atrial Fibrillation Acute exacerbation of COPD -Scheduled DuoNebs and Pulmicort, Albuterol prn -Systemic steriods -Mucinex Acute Hypoxic Respiratory Failure -No baseline oxygen requirements -hypoxic on RA -Currently off BiPAP -ABG 7.389/32.7/313/19.7 (done on 55% FiO2) -Monitor saturations wean as tolerate Acute on chronic systolic heart failure -Initiate CHF protocol -CXR showed: Worsened CHF with mild perihilar [place] [address] -EF 20-25% on Echo (10/2018) -Diurese with IV diuretics -Cardiology consulted Acute kidney injury, vasomotor nephropathy -Cr 1.9 with GFR 26 on this admission -Baseline Cr 1.1 - 1.2 (01/2019) -Gentle hyrdration with IVF -Avoid nephrotoxic agents -Renal dose all meds -Nephrology consulted Atrial fibrillation with RVR -On anticoagulation with Eliquis -Continuous telemetry monitoring start Amiodarone per Cardiology Hypertension -Continue to monitor BP -Hold JUAN -Resume home antihypertensive meds -IV hydralazine when necessary DVT PPX -on Eliquis -SCD's History Interval history: Patient was seen and examined. Follow-up on current diagnosis of AE COPD. No Overnight events reported to me. Patient denies any chest pain, nausea/vomiting or severe headaches. Imaging, nursing note, chart, labs and old chart reviewed. Discussed with patient. Hospitalist Physical - Physical exam Narrative exam: Gen: cachetic bmi 17.4, chronically ill appearing, on 4liters O2 (new to O2), bipap on standby at bedside, nad a/o x 3 HEENT: NCAT, EOMI, PERRL, OP Clear Neck: supple, no adenopathy, no thyromegaly, no JVD CVS/Heart: irregular irregular, normal S1S2, pulses present bilaterally Chest/Lungs: diminished bs bilateral, Symmetrical chest expansion, good air entry bilaterally GI/Abdomen: soft, NTND, good bowel sounds, no guarding or rebound /Bladder: no suprapubic tenderness, no CVA or paraspinal tenderness Extermity/Skin: trace ble MSK: FROM x 4 Neuro: CN 2-12 grossly intact, no new focal deficits Psych: calm - Constitutional Vitals: Temp Pulse Resp BP Pulse Ox 97.9 F 93 H 20 132/89 3 L 04/06/19 11:30 04/06/19 15:44 04/06/19 13:26 04/06/19 11:30 04/06/19 11:30 General appearance: Present: no acute distress Results - Labs CBC & Chem 7: 04/06/19 05:36 04/06/19 05:36 Labs: Laboratory Last Values WBC 2.2 K/mm3 (4.5-11.0) L 04/06/19 05:36 RBC 4.04 M/mm3 (3.65-5.03) 04/06/19 05:36 Hgb 12.6 gm/dl (10.1-14.3) 04/06/19 05:36 Hct 37.5 % (30.3-42.9) 04/06/19 05:36 MCV 93 fl (79-97) 04/06/19 05:36 MCH 31 pg (28-32) 04/06/19 05:36 MCHC 34 % (30-34) 04/06/19 05:36 RDW 15.1 % (13.2-15.2) 04/06/19 05:36 Plt Count 91 K/mm3 (140-440) L 04/06/19 05:36 Lymph % (Auto) 33.6 % (13.4-35.0) 04/05/19 16:01 [place] % (Auto) 2.0 % (0.0-7.3) 04/06/19 05:36 Eos % (Auto) 0.0 % (0.0-4.3) 04/06/19 05:36 Baso % (Auto) 0.2 % (0.0-1.8) 04/05/19 16:01 Lymph # 1.9 K/mm3 (1.2-5.4) 04/05/19 16:01 [place] # 0.0 K/mm3 (0.0-0.8) 04/06/19 05:36 Eos # 0.0 K/mm3 (0.0-0.4) 04/06/19 05:36 Baso # 0.0 K/mm3 (0.0-0.1) 04/06/19 05:36 Add Manual Diff Complete 04/06/19 05:36 Total Counted 100 04/06/19 05:36 Seg Neutrophils % 71.9 % (40.0-70.0) H 04/06/19 05:36 Seg Neuts % (Manual) 76.0 % (40.0-70.0) H 04/06/19 05:36 0 % 04/06/19 05:36 22.0 % (13.4-35.0) 04/06/19 05:36 Reactive Lymphs % (Man) 0 % 04/06/19 05:36 2.0 % (0.0-7.3) 04/06/19 05:36 0 % (0.0-4.3) 04/06/19 05:36 0 % (0.0-1.8) 04/06/19 05:36 0 % 04/06/19 05:36 0 % 04/06/19 05:36 0 % 04/06/19 05:36 0 % 04/06/19 05:36 Nucleated RBC % Not Reportable 04/06/19 05:36 Seg Neutrophils # 1.6 K/mm3 (1.8-7.7) L 04/06/19 05:36 Seg Neutrophils # Man 1.7 K/mm3 (1.8-7.7) L 04/06/19 05:36 Band Neutrophils # 0.0 K/mm3 04/06/19 05:36 0.5 K/mm3 (1.2-5.4) L 04/06/19 05:36 Abs React Lymphs (Man) 0.0 K/mm3 04/06/19 05:36 0.0 K/mm3 (0.0-0.8) 04/06/19 05:36 0.0 K/mm3 (0.0-0.4) 04/06/19 05:36 0.0 K/mm3 (0.0-0.1) 04/06/19 05:36 0.0 K/mm3 04/06/19 05:36 0.0 K/mm3 04/06/19 05:36 0.0 K/mm3 04/06/19 05:36 Blast Cells # 0.0 K/mm3 04/06/19 05:36 WBC Morphology Not Reportable 04/06/19 05:36 Hypersegmented Neuts Not Reportable 04/06/19 05:36 Hyposegmented Neuts Not Reportable 04/06/19 05:36 Hypogranular Neuts Not Reportable 04/06/19 05:36 Not Reportable 04/06/19 05:36 Not Reportable 04/06/19 05:36 Not Reportable 04/06/19 05:36 Not Reportable 04/06/19 05:36 Not Reportable 04/06/19 05:36 Not Reportable 04/06/19 05:36 Cons 04/06/19 05:36 Not Reportable 04/06/19 05:36 Plt Clumps, EDTA Not Reportable 04/06/19 05:36 Rare 04/06/19 05:36 Not Reportable 04/06/19 05:36 Not Reportable 04/06/19 05:36 Plt Morphology Comment Not Reportable 04/06/19 05:36 RBC Morphology Not Reportable 04/06/19 05:36 Dimorphic RBCs Not Reportable 04/06/19 05:36 Not Reportable 04/06/19 05:36 Not Reportable 04/06/19 05:36 Not Reportable 04/06/19 05:36 Not Reportable 04/06/19 05:36 Not Reportable 04/06/19 05:36 Not Reportable 04/06/19 05:36 Not Reportable 04/06/19 05:36 Not Reportable 04/06/19 05:36 Not Reportable 04/06/19 05:36 Not Reportable 04/06/19 05:36 Not Reportable 04/06/19 05:36 Not Reportable 04/06/19 05:36 Not Reportable 04/06/19 05:36 Not Reportable 04/06/19 05:36 Not Reportable 04/06/19 05:36 Not Reportable 04/06/19 05:36 Not Reportable 04/06/19 05:36 Not Reportable 04/06/19 05:36 Not Reportable 04/06/19 05:36 Acanthocytes (Spur) Not Reportable 04/06/19 05:36 Rouleaux Not Reportable 04/06/19 05:36 Not Reportable 04/06/19 05:36 Not Reportable 04/06/19 05:36 Not Reportable 04/06/19 05:36 Not Reportable 04/06/19 05:36 Hem Pathologist Commnt No 04/06/19 05:36 PT 17.2 Sec. (12.2-14.9) H 04/05/19 Unknown INR 1.44 (0.87-1.13) H 04/05/19 Unknown APTT 24.7 Sec. (24.2-36.6) 04/05/19 Unknown POC ABG pH 7.389 (7.35-7.45) 04/05/19 16:41 POC ABG pCO2 32.7 (35-45) L 04/05/19 16:41 POC ABG pO2 313 (80-105) H 04/05/19 16:41 POC ABG HCO3 19.7 (22-26 mml/L) 04/05/19 16:41 POC ABG Total CO2 21 (23-27mmol/L) 04/05/19 16:41 POC ABG O2 Sat 100 04/05/19 16:41 POC ABG Base Excess -5 ((-2) - (+3)mmol/L) 04/05/19 16:41 55 % 04/05/19 16:41 Sodium 142 mmol/L (137-145) 04/06/19 05:36 Potassium 4.0 mmol/L (3.6-5.0) 04/06/19 05:36 Chloride 103.4 mmol/L (98-107) 04/06/19 05:36 Carbon Dioxide 20 mmol/L (22-30) L 04/06/19 05:36 23 mmol/L 04/06/19 05:36 BUN 53 mg/dL (7-17) H 04/06/19 05:36 1.8 mg/dL (0.7-1.2) H 04/06/19 05:36 Estimated GFR 28 ml/min 04/06/19 05:36 29 % 04/06/19 05:36 Glucose 185 mg/dL (65-100) H 04/06/19 05:36 Calcium 8.9 mg/dL (8.4-10.2) 04/06/19 05:36 0.90 mg/dL (0.1-1.2) 04/05/19 16:01 AST 76 units/L (5-40) H 04/05/19 16:01 ALT 67 units/L (7-56) H 04/05/19 16:01 112 units/L (35-129) 04/05/19 16:01 0.013 ng/mL (0.00-0.029) 04/05/19 16:01 NT-Pro-B Natriuret Pep > 84472 pg/mL (0-900) H 04/05/19 16:01 6.5 g/dL (6.3-8.2) 04/05/19 16:01 3.7 g/dL (3.9-5) L 04/05/19 16:01 1.3 % 04/05/19 16:01 Active Medications - Current Medications Current Medications: Generic Name Dose Route Start Last Admin Trade Name Freq PRN Reason Stop Dose Admin Acetaminophen 650 mg 04/05/19 19:46 Tylenol PO Q4H PRN Pain MILD(1-3)/Fever >100.5/VAZQUEZ Albuterol 2.5 mg 04/05/19 19:46 Proventil IH Q3HRT PRN Shortness Of Breath Albuterol/Ipratropium 1 ampul 04/05/19 20:00 04/06/19 13:25 Duoneb *Not For Prn Use* IH 1 ampul Q6HRT ANGÉLICA Administration Amiodarone HCl 400 mg 04/06/19 12:30 04/06/19 16:00 Cordarone PO 04/06/19 20:01 400 mg TID ANGÉLICA Administration Amiodarone HCl 200 mg 04/07/19 10:00 Cordarone PO BID ANGÉLICA Apixaban 2.5 mg 04/05/19 22:00 04/05/19 23:22 Eliquis PO 2.5 mg HS ANGÉLICA Administration Protocol Aspirin 81 mg 04/06/19 10:00 04/06/19 09:38 Halfprin Ec PO 81 mg QDAY ANGÉLICA Administration Atorvastatin Calcium 40 mg 04/05/19 22:00 04/05/19 22:16 Lipitor PO 40 mg QHS ANGÉLICA Administration Budesonide 0.5 mg 04/05/19 20:00 04/06/19 08:08 Pulmicort IH 0.5 mg Q12HRT ANGÉLICA Administration Citalopram Hydrobromide 20 mg 04/06/19 10:00 04/06/19 09:38 Celexa PO 20 mg QDAY ANGÉLICA Administration Docusate Sodium 100 mg 04/05/19 22:00 04/06/19 09:38 Colace PO 100 mg BID ANGÉLICA Administration Furosemide 40 mg 04/06/19 10:00 04/06/19 09:35 Lasix IV 40 mg DAILY ANGÉLICA Administration Guaifenesin 600 mg 04/05/19 22:00 04/06/19 09:39 Mucinex Er PO 600 mg BID ANGÉLICA Administration Hydralazine HCl 10 mg 04/05/19 21:16 Apresoline IV Q4HR PRN Blood Pressure Levothyroxine Sodium 50 mcg 04/06/19 10:00 04/06/19 09:38 Synthroid PO 50 mcg DAILY ANGÉLICA Administration Megestrol Acetate 400 mg 04/05/19 22:00 04/06/19 09:39 Megace PO 400 mg BID ANGÉLICA Administration Methylprednisolone Sodium Succinate 60 mg 04/05/19 22:00 04/06/19 13:41 Solu-Medrol IV 60 mg Q8HR ANGÉLICA Administration Metoprolol Tartrate 25 mg 04/05/19 22:00 04/06/19 09:38 Lopressor PO 25 mg BID ANGÉLICA Administration Ondansetron HCl 4 mg 04/05/19 19:46 Zofran IV Q8H PRN Nausea And Vomiting Potassium Chloride 10 meq 04/06/19 10:00 04/06/19 09:38 K-Dur PO 10 meq QDAY ANGÉLICA Administration Sodium Chloride 10 ml 04/05/19 22:00 04/06/19 09:39 Sodium Chloride Flush Syringe 10 Ml IV 10 ml BID ANGÉLICA Administration Sodium Chloride 10 ml 04/05/19 19:46 04/06/19 06:07 Sodium Chloride Flush Syringe 10 Ml IV 10 ml PRN PRN Administration LINE FLUSH Nutrition/Malnutrition Assess - Dietary Evaluation Nutrition/Malnutrition Findings: Nutrition Notes Start: 04/06/19 16:00 Freq: Status: Active Protocol: Document 04/06/19 16:00 RM (Rec: 04/06/19 16:09 RM [id number]) Nutrition Notes 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 No PEG or office assistant receptionist of TPN in record. 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 Pt stated that her appetite is good now and that she eats most of her meals. Stated UBW was 95 lbs last week. Percent of energy/protein needs met: 100%/100% Burn Absent Trauma Absent #1 Nutrition Diagnosis Underweight Etiology decreased appetite, COPD As Evidenced by Signs and Symptoms BMI 17.4 Is patient on ventilator? No Is Patient Ambulatory and/or Out of Bed Yes REE-([facility]-ambulatory/OOB) [ 1155.908 [id number]] Kcal/Kg value to use for calculation 34 Approximate Energy Requirements Using 1465 kcal/Kg Calculation Used for Recommendations Kcal/kg Additional Notes Protein Needs: 52-65g (1.2-1. 5g/kg) Fluid Needs:1 ml/kcal Nutrition Intervention Change Diet Order: Continue current Add Supplement/Snack (indicate name/kcal Ensure Clear Apple 1 daily /protein ) Provides kCal: 240 Provides Protein (gm) 8 Goal #1 Continue to meet at least 75% of calorie and protein needs via PO and ONS intakes Goal #2 Wt gain/maintenance Anticipated Discharge Needs: Cardiac diet Follow-Up By: 04/10/19 Additional Comments Follow for PO and ONS intakes
--- NOTE | 2019-04-06 17:59 | Ultrasound Report ---
ULTRASOUND RENAL INDICATION: BUTCH. COMPARISON: No relevant prior imaging study available. FINDINGS: RIGHT KIDNEY: Size: 9.7 cm. Echogenicity: Increased. Cortical thickness: Normal. Stones: None. Hydronephrosis: None. Cyst or mass: There is a 1.3 cm upper pole cyst. LEFT KIDNEY: Size: 7.5 cm. Echogenicity: Mildly increased. Cortical thickness: Normal. Stones: None. Hydronephrosis: None. Cyst or mass: None. Urinary Bladder: No significant abnormality. Free Fluid: None. Additional Findings: None. IMPRESSION 1. No acute sonographic abnormality of the kidneys. 2. Mild increased echogenicity in the cortex of both kidneys can be seen in the setting of medical re nal disease. Signer Name: Pj Julio MD Signed: 04/06/2019 5:54 PM Workstation Name: [id number]
[2019-04-06 19:19] LABS: Bacteria,Urine 1+ /HPF (Negative); Mucus,Urine FEW /HPF
[2019-04-06 19:29] LABS: Chloride, Urine 47.6 mmolL (110-250); Creatinine,Urine 36.8 mg/dL (0.1-20.0); Microalbumin/Creatinine Ratio 864.1 ug/mg; Protein/Creatinine Ratio,Urine 1.98
[2019-04-06] MEDS: ELIQUIS PO SCH (22:10)
[2019-04-07] MEDS: SODIUM CHLORIDE FLUSH SYRINGE 10 ML IV SCH ×3 (00:18→22:42)
[2019-04-07] MEDS: DUONEB *Not for PRN Use IH SCH ×4 (01:09→19:46)
[2019-04-07 04:47] LABS: Hematocrit 38.4 % (30.3-42.9); Hemoglobin 12.8 gm/dl (10.1-14.3); Mean Corpuscular HGB Conc 33 % (30-34); Mean Corpuscular Volume 93 fl (79-97); Red Blood Count 4.12 M/mm3 (3.65-5.03); Red Cell Distribution Width 15.4 % (13.2-15.2)
[2019-04-07 05:13] LABS: Calcium 8.3 mg/dL (8.4-10.2)
[2019-04-07 05:18] LABS: Albumin 3.7 g/dL (3.9-5); Calcium 8.3 mg/dL (8.4-10.2)
[2019-04-07] MEDS: SOLU-Medrol IV SCH ×3 (05:29→22:41)
[2019-04-07 06:25] LABS: Mean Platelet Volume 11.1 fl (6-12); Platelet Count 103 K/mm3 (140-440)
[2019-04-07] MEDS: PULMICORT IH SCH ×2 (07:45→19:47)
[2019-04-07] MEDS: COLACE PO SCH ×2 (10:12→22:40)
[2019-04-07] MEDS: celeXA PO SCH (10:12)
[2019-04-07] MEDS: CORDARONE PO SCH ×2 (10:12→22:40)
[2019-04-07] MEDS: K-DUR PO SCH (10:13)
[2019-04-07] MEDS: SYNTHROID PO SCH (10:13)
[2019-04-07] MEDS: MUCINEX ER PO SCH ×2 (10:13→22:40)
[2019-04-07] MEDS: HALFPRIN EC PO SCH (10:13)
[2019-04-07] MEDS: LASIX IV SCH (10:13)
[2019-04-07] MEDS: LOPRESSOR PO SCH ×2 (10:13→22:38)
[2019-04-07] MEDS: MEGACE PO SCH ×2 (10:13→22:42)
--- NOTE | 2019-04-07 12:34 | Progress Note ---
Assessment and Plan Continue amiodarone for rate control. She is unable to tolerate digoxin, and diltiazem contraindicated d/t borderline blood pressures. Continue other cardiac management. The patient was evaluated by Dr. Gina Benjamin. - Patient Problems (1) Nonischemic dilated cardiomyopathy Current Visit: Yes Status: Chronic (2) Permanent atrial fibrillation with RVR Current Visit: Yes Status: Acute (3) HTN (hypertension) Current Visit: Yes Status: Chronic Qualifiers: Hypertension type: essential hypertension Qualified Code(s): I10 - Essential (primary) hypertension (4) History of CVA (cerebrovascular accident) Current Visit: Yes Status: Chronic (5) Renal insufficiency Current Visit: Yes Status: Chronic (6) Tobacco use Current Visit: Yes Status: Chronic (7) Acute respiratory failure Current Visit: No Status: Acute Qualifiers: Respiratory failure complication: hypoxia Qualified Code(s): J96.01 - Acute respiratory failure with hypoxia (8) COPD exacerbation Current Visit: No Status: Acute Subjective Date of service: 04/07/19 Interval history: Patient resting comfortably in no acute distress. Currently in atrial fibrillation with borderline blood pressures. Objective Vital Signs Last Vital Signs Temp 97.4 F L 04/07/19 11:31 Pulse 100 H 04/07/19 11:31 Resp 22 04/07/19 11:31 BP 101/77 04/07/19 11:31 Pulse Ox 100 04/07/19 11:31 - Physical Examination General: No Apparent Distress HEENT: Positive: PERRL, Normocephaly, Mucus Membranes Moist Neck: Positive: neck supple, trachea midline Cardiac: Positive: irregularly irregular Lungs: Positive: Normal Exam Neuro: Positive: Grossly Intact Abdomen: Positive: Unremarkable. Negative: Tender /Rectal: Other (deferred) Skin: Positive: Clear. Negative: Rash Musculoskeletal: No Pain Extremities: Present: normal. Absent: edema - Labs and Meds Cardiac Enzymes 04/07/19 Range/Units 04:25 AST 55 H (5-40) units/L CBC 04/07/19 Range/Units 04:25 WBC 6.6 (4.5-11.0) K/mm3 RBC 4.12 (3.65-5.03) M/mm3 Hgb 12.8 (10.1-14.3) gm/dl Hct 38.4 (30.3-42.9) % Plt Count 103 L (140-440) K/mm3 Comprehensive Metabolic Panel 04/07/19 04/07/19 Range/Units 04:25 04:25 Sodium 140 140 (137-145) mmol/L Potassium 4.3 4.3 (3.6-5.0) mmol/L Chloride 102.5 102.2 (98-107) mmol/L Carbon Dioxide 16 L 16 L (22-30) mmol/L BUN 64 H 64 H (7-17) mg/dL Creatinine 2.2 H 2.2 H (0.7-1.2) mg/dL Glucose 226 H 227 H (65-100) mg/dL Calcium 8.3 L 8.3 L (8.4-10.2) mg/dL AST 55 H (5-40) units/L ALT 80 H (7-56) units/L Alkaline Phosphatase 123 (35-129) units/L Total Protein 6.3 (6.3-8.2) g/dL Albumin 3.7 L (3.9-5) g/dL - Imaging and Cardiology EKG: report reviewed, image reviewed Echo: report reviewed (10/2018 showed EF 20-25%, septal wall hypertrophy, impaired relaxation, LA mildly dilated, RV systolic function mildly reduced, trivial pericardial effusion.) Cardiac cath: report reviewed ( 07/2017 showed mildly dilated LV, EF 40-45%, minimal coronary irregularities. ) - Telemetry EKG Rhythm: Atrial Fibrillation
--- NOTE | 2019-04-07 13:41 | Progress Note ---
Assessment and Plan Acute hypoxic respiratory failure Acute Exacerbation of COPD Acute Kidney Injury possibly secondary to prerenal, cardiorenal syndrome, on u nderlying CKD, r/o obstruction Acute on chronic systolic CHF Essential HTN Atrial Fibrillation with RVR on Eliquis Hypothyroidism Hx of CVA Plan: -Renal function reviewed, SCr level slightly up. Monitor. Urine Cr low signalling ATN. -Review of labs in [facility] labs from 2016-March of 2019 showed SCr level between 0.8-1.8 -Renal US showed no hydronephrosis, shows signs of CKD -CXR showed worsening CHF with perihilar interstitial pulmonary edema -D/Ermias IV fluids -Currently on Lasix 40 mg IV daily for now, will adjust as needed -Holding lisinopril for now -Monitor blood pressures closely -Renally dose meds Subjective Date of service: 04/07/19 Interval history: Making urine. Objective - Exam Narrative Exam: General appearance: other (awake) EENT: ATNC Neck: Present: neck supple Respiratory: Decreased Breath Sounds Heart: regular, S1S2 Gastrointestinal: Present: normoactive bowel sounds. Absent: tenderness Integumentary: warm and dry Neurologic: alert and oriented x3 Musculoskeletal: Present: other (1+ edema to BLE) Psychiatric: cooperative - Vital Signs Vital signs: Vital Signs - 12hr 04/07/19 04/07/19 04/07/19 05:14 05:16 07:42 Temperature 97.7 F 97.4 F L Pulse Rate 61 108 H Pulse Rate [ Anterior Bilateral Throughout] Respiratory 20 18 Rate Respiratory Rate [Anterior Bilateral Throughout] Blood Pressure 116/82 106/80 O2 Sat by Pulse 94 98 Oximetry 04/07/19 04/07/19 04/07/19 07:46 07:47 10:13 Temperature Pulse Rate 108 H Pulse Rate [ 96 H Anterior Bilateral Throughout] Respiratory Rate Respiratory 23 Rate [Anterior Bilateral Throughout] Blood Pressure 106/80 O2 Sat by Pulse 98 Oximetry 04/07/19 04/07/19 10:28 11:31 Temperature 97.4 F L Pulse Rate 100 H 100 H Pulse Rate [ Anterior Bilateral Throughout] Respiratory 18 22 Rate Respiratory Rate [Anterior Bilateral Throughout] Blood Pressure 106/80 101/77 O2 Sat by Pulse 98 100 Oximetry - Lab 04/07/19 04:25 04/07/19 04:25 Most recent lab results Calcium 8.3 mg/dL (8.4-10.2) L 04/07/19 04:25 Calcium 8.3 mg/dL (8.4-10.2) L 04/07/19 04:25 Phosphorus 4.90 mg/dL (2.5-4.5) H 04/07/19 04:25 36.8 mg/dL (0.1-20.0) H 04/06/19 18:00 43 mmol/L 04/06/19 18:00 73 mg/dL (5-11.8) H 04/06/19 18:00 Medications & Allergies - Medications Allergies/Adverse Reactions: Allergies No Known Allergies Allergy (Verified 10/19/18 14:21) Home Medications: Home Medications Medication Instructions Recorded Confirmed Last Taken Type Apixaban [Eliquis] 2.5 mg PO HS 02/11/19 04/05/19 Unknown History Citalopram [Celexa] 20 mg PO QDAY 02/11/19 04/05/19 Unknown History Levothyroxine [Synthroid] 0.05 mg PO DAILY 02/11/19 04/05/19 Unknown History Lisinopril [Zestril TAB] 2.5 mg PO QDAY 02/11/19 04/05/19 Unknown History Metoprolol [Lopressor TAB] 25 mg PO BID 02/11/19 04/05/19 Unknown History Aspirin EC [Halfprin EC] 81 mg PO QDAY #30 tablet.dr 02/14/19 04/05/19 Unknown Rx Furosemide [Lasix TAB] 40 mg PO QDAY #30 tablet 02/14/19 04/05/19 Unknown Rx Potassium Chloride [K-Dur] 10 meq PO QDAY #30 tablet 02/14/19 04/05/19 Unknown Rx Albuterol Sulfate [Proventil Hfa] 2 puff IH Q4HR PRN #1 hfa.aer.ad 04/02/19 04/05/19 Unknown Rx Megestrol Acetate 400 mg PO BID 04/05/19 04/05/19 Unknown History Rosuvastatin Calcium 40 mg PO QDAY 04/05/19 04/05/19 Unknown History Tiotropium [place] [Spiriva 2.5 mcg IH DAILY 04/05/19 04/05/19 Unknown History Respimat] Active Medications: Generic Name Dose Route Start Last Admin Trade Name Freq PRN Reason Stop Dose Admin Acetaminophen 650 mg 04/05/19 19:46 Tylenol PO Q4H PRN Pain MILD(1-3)/Fever >100.5/VAZQUEZ Albuterol 2.5 mg 04/05/19 19:46 Proventil IH Q3HRT PRN Shortness Of Breath Albuterol/Ipratropium 1 ampul 04/05/19 20:00 04/07/19 07:45 Duoneb *Not For Prn Use* IH 1 ampul Q6HRT ANGÉLICA Administration Amiodarone HCl 200 mg 04/07/19 10:00 04/07/19 10:12 Cordarone PO 200 mg BID ANGÉLICA Administration Apixaban 2.5 mg 04/05/19 22:00 04/06/19 22:10 Eliquis PO 2.5 mg HS ANGÉLICA Administration Protocol Aspirin 81 mg 04/06/19 10:00 04/07/19 10:13 Halfprin Ec PO 81 mg QDAY ANGÉLICA Administration Atorvastatin Calcium 40 mg 04/05/19 22:00 04/06/19 22:11 Lipitor PO 40 mg QHS ANGÉLICA Administration Budesonide 0.5 mg 04/05/19 20:00 04/07/19 07:45 Pulmicort IH 0.5 mg Q12HRT ANGÉLICA Administration Citalopram Hydrobromide 20 mg 04/06/19 10:00 04/07/19 10:12 Celexa PO 20 mg QDAY ANGÉLICA Administration Docusate Sodium 100 mg 04/05/19 22:00 04/07/19 10:12 Colace PO 100 mg BID ANGÉLICA Administration Furosemide 40 mg 04/06/19 10:00 04/07/19 10:13 Lasix IV 40 mg DAILY ANGÉLICA Administration Guaifenesin 600 mg 04/05/19 22:00 04/07/19 10:13 Mucinex Er PO 600 mg BID ANGÉLICA Administration Hydralazine HCl 10 mg 04/05/19 21:16 Apresoline IV Q4HR PRN Blood Pressure Levothyroxine Sodium 50 mcg 04/06/19 10:00 04/07/19 10:13 Synthroid PO 50 mcg DAILY ANGÉLICA Administration Megestrol Acetate 400 mg 04/05/19 22:00 04/07/19 10:13 Megace PO 400 mg BID ANGÉLICA Administration Methylprednisolone Sodium Succinate 60 mg 04/05/19 22:00 04/07/19 05:29 Solu-Medrol IV 60 mg Q8HR ANGÉLICA Administration Metoprolol Tartrate 25 mg 04/05/19 22:00 04/07/19 10:13 Lopressor PO Not Given BID ANGÉLICA Ondansetron HCl 4 mg 04/05/19 19:46 Zofran IV Q8H PRN Nausea And Vomiting Potassium Chloride 10 meq 04/06/19 10:00 04/07/19 10:13 K-Dur PO 10 meq QDAY ANGÉLICA Administration Sodium Chloride 10 ml 04/05/19 22:00 04/07/19 10:14 Sodium Chloride Flush Syringe 10 Ml IV 10 ml BID ANGÉLICA Administration Sodium Chloride 10 ml 04/05/19 19:46 04/06/19 06:07 Sodium Chloride Flush Syringe 10 Ml IV 10 ml PRN PRN Administration LINE FLUSH
--- NOTE | 2019-04-07 17:27 | Progress Note ---
Assessment and Plan - Patient Problems (1) Acute respiratory failure Current Visit: Yes Status: Acute Qualifiers: Respiratory failure complication: hypoxia Qualified Code(s): J96.01 - Acute respiratory failure with hypoxia Plan to address problem: 2 respiratory failure multifactorial secondary to COPD and underlying congestive heart failure. Physical continue BiPAP at this particular time. Nebulizer treatments and steroids. Continue diuretics for acute on chronic congestive heart failure. Would titrate Lasix JUAN inhibitor on hold for acute kidney injury. Continue beta frederick diuretic. (2) COPD exacerbation Current Visit: Yes Status: Acute Plan to address problem: As mentioned previously continue nebulizers impaired antibiotics steroids and BiPAP. Pulmonology following. (3) Permanent atrial fibrillation with RVR Current Visit: Yes Status: Acute Plan to address problem: Patient rate much better control. On amiodarone cannot tolerate digoxin. Unable to tolerate diltiazem as well. Continue Elaquis (4) Renal insufficiency Current Visit: Yes Status: Chronic Plan to address problem: Secondary to prerenal azotemia. (5) Tobacco use Current Visit: Yes Status: Chronic (6) Acute on chronic combined systolic (congestive) and diastolic (congestive) heart failure Current Visit: No Status: Acute History Interval history: Patient at bedside no new concerns. Has CPAP going. No chest pain his platelet time. Hospitalist Physical - Constitutional Vitals: Temp Pulse Resp BP Pulse Ox 97.4 F L 101 H 23 101/77 100 04/07/19 11:31 04/07/19 15:00 04/07/19 14:00 04/07/19 11:31 04/07/19 11:31 General appearance: Present: no acute distress, mild distress - EENT Eyes: Present: PERRL, EOM intact ENT: hearing intact, clear oral mucosa, dentition normal - Respiratory Respiratory: bilateral: diminished, rhonchi (bilateral bases.) - Cardiovascular Rhythm: irregularly irregular - Extremities Extremities: no ischemia, pulses intact, pulses symmetrical, normal temperature, normal color Extremity abnormal: edema Peripheral Pulses: abnormal - Abdominal General gastrointestinal: soft, non-tender, non-distended, other (scaphoid abd omen) - Integumentary Integumentary: Present: clear, warm, dry - Psychiatric Psychiatric: appropriate mood/affect, intact judgment & insight - Neurologic Neurologic: CNII-XII intact, moves all extremities Results - Labs CBC & Chem 7: 04/07/19 04:25 04/07/19 04:25 Labs: Laboratory Last Values WBC 6.6 K/mm3 (4.5-11.0) 04/07/19 04:25 RBC 4.12 M/mm3 (3.65-5.03) 04/07/19 04:25 Hgb 12.8 gm/dl (10.1-14.3) 04/07/19 04:25 Hct 38.4 % (30.3-42.9) 04/07/19 04:25 MCV 93 fl (79-97) 04/07/19 04:25 MCH 31 pg (28-32) 04/07/19 04:25 MCHC 33 % (30-34) 04/07/19 04:25 RDW 15.4 % (13.2-15.2) H 04/07/19 04:25 Plt Count 103 K/mm3 (140-440) L 04/07/19 04:25 Lymph % (Auto) 33.6 % (13.4-35.0) 04/05/19 16:01 [place] % (Auto) 2.0 % (0.0-7.3) 04/06/19 05:36 Eos % (Auto) 0.0 % (0.0-4.3) 04/06/19 05:36 Baso % (Auto) 0.2 % (0.0-1.8) 04/05/19 16:01 Lymph # 1.9 K/mm3 (1.2-5.4) 04/05/19 16:01 [place] # 0.0 K/mm3 (0.0-0.8) 04/06/19 05:36 Eos # 0.0 K/mm3 (0.0-0.4) 04/06/19 05:36 Baso # 0.0 K/mm3 (0.0-0.1) 04/06/19 05:36 Add Manual Diff Complete 04/06/19 05:36 Total Counted 100 04/06/19 05:36 Seg Neutrophils % 71.9 % (40.0-70.0) H 04/06/19 05:36 Seg Neuts % (Manual) 76.0 % (40.0-70.0) H 04/06/19 05:36 0 % 04/06/19 05:36 22.0 % (13.4-35.0) 04/06/19 05:36 Reactive Lymphs % (Man) 0 % 04/06/19 05:36 2.0 % (0.0-7.3) 04/06/19 05:36 0 % (0.0-4.3) 04/06/19 05:36 0 % (0.0-1.8) 04/06/19 05:36 0 % 04/06/19 05:36 0 % 04/06/19 05:36 0 % 04/06/19 05:36 0 % 04/06/19 05:36 Nucleated RBC % Not Reportable 04/06/19 05:36 Seg Neutrophils # 1.6 K/mm3 (1.8-7.7) L 04/06/19 05:36 Seg Neutrophils # Man 1.7 K/mm3 (1.8-7.7) L 04/06/19 05:36 Band Neutrophils # 0.0 K/mm3 04/06/19 05:36 0.5 K/mm3 (1.2-5.4) L 04/06/19 05:36 Abs React Lymphs (Man) 0.0 K/mm3 04/06/19 05:36 0.0 K/mm3 (0.0-0.8) 04/06/19 05:36 0.0 K/mm3 (0.0-0.4) 04/06/19 05:36 0.0 K/mm3 (0.0-0.1) 04/06/19 05:36 0.0 K/mm3 04/06/19 05:36 0.0 K/mm3 04/06/19 05:36 0.0 K/mm3 04/06/19 05:36 Blast Cells # 0.0 K/mm3 04/06/19 05:36 WBC Morphology Not Reportable 04/06/19 05:36 Hypersegmented Neuts Not Reportable 04/06/19 05:36 Hyposegmented Neuts Not Reportable 04/06/19 05:36 Hypogranular Neuts Not Reportable 04/06/19 05:36 Not Reportable 04/06/19 05:36 Not Reportable 04/06/19 05:36 Not Reportable 04/06/19 05:36 Not Reportable 04/06/19 05:36 Not Reportable 04/06/19 05:36 Not Reportable 04/06/19 05:36 Cons 04/06/19 05:36 Not Reportable 04/06/19 05:36 Plt Clumps, EDTA Not Reportable 04/06/19 05:36 Rare 04/06/19 05:36 Not Reportable 04/06/19 05:36 Not Reportable 04/06/19 05:36 Plt Morphology Comment Not Reportable 04/06/19 05:36 RBC Morphology Not Reportable 04/06/19 05:36 Dimorphic RBCs Not Reportable 04/06/19 05:36 Not Reportable 04/06/19 05:36 Not Reportable 04/06/19 05:36 Not Reportable 04/06/19 05:36 Not Reportable 04/06/19 05:36 Not Reportable 04/06/19 05:36 Not Reportable 04/06/19 05:36 Not Reportable 04/06/19 05:36 Not Reportable 04/06/19 05:36 Not Reportable 04/06/19 05:36 Not Reportable 04/06/19 05:36 Not Reportable 04/06/19 05:36 Not Reportable 04/06/19 05:36 Not Reportable 04/06/19 05:36 Not Reportable 04/06/19 05:36 Not Reportable 04/06/19 05:36 Not Reportable 04/06/19 05:36 Not Reportable 04/06/19 05:36 Not Reportable 04/06/19 05:36 Not Reportable 04/06/19 05:36 Acanthocytes (Spur) Not Reportable 04/06/19 05:36 Rouleaux Not Reportable 04/06/19 05:36 Not Reportable 04/06/19 05:36 Not Reportable 04/06/19 05:36 Not Reportable 04/06/19 05:36 Not Reportable 04/06/19 05:36 Hem Pathologist Commnt No 04/06/19 05:36 PT 17.2 Sec. (12.2-14.9) H 04/05/19 Unknown INR 1.44 (0.87-1.13) H 04/05/19 Unknown APTT 24.7 Sec. (24.2-36.6) 04/05/19 Unknown POC ABG pH 7.389 (7.35-7.45) 04/05/19 16:41 POC ABG pCO2 32.7 (35-45) L 04/05/19 16:41 POC ABG pO2 313 (80-105) H 04/05/19 16:41 POC ABG HCO3 19.7 (22-26 mml/L) 04/05/19 16:41 POC ABG Total CO2 21 (23-27mmol/L) 04/05/19 16:41 POC ABG O2 Sat 100 04/05/19 16:41 POC ABG Base Excess -5 ((-2) - (+3)mmol/L) 04/05/19 16:41 55 % 04/05/19 16:41 Sodium 140 mmol/L (137-145) 04/07/19 04:25 Sodium 140 mmol/L (137-145) 04/07/19 04:25 Potassium 4.3 mmol/L (3.6-5.0) 04/07/19 04:25 Potassium 4.3 mmol/L (3.6-5.0) 04/07/19 04:25 Chloride 102.2 mmol/L (98-107) 04/07/19 04:25 Chloride 102.5 mmol/L (98-107) 04/07/19 04:25 Carbon Dioxide 16 mmol/L (22-30) L 04/07/19 04:25 Carbon Dioxide 16 mmol/L (22-30) L 04/07/19 04:25 26 mmol/L 04/07/19 04:25 26 mmol/L 04/07/19 04:25 BUN 64 mg/dL (7-17) H 04/07/19 04:25 BUN 64 mg/dL (7-17) H 04/07/19 04:25 2.2 mg/dL (0.7-1.2) H 04/07/19 04:25 2.2 mg/dL (0.7-1.2) H 04/07/19 04:25 Estimated GFR 22 ml/min 04/07/19 04:25 Estimated GFR 22 ml/min 04/07/19 04:25 29 % 04/07/19 04:25 29 % 04/07/19 04:25 Glucose 226 mg/dL (65-100) H 04/07/19 04:25 Glucose 227 mg/dL (65-100) H 04/07/19 04:25 Calcium 8.3 mg/dL (8.4-10.2) L 04/07/19 04:25 Calcium 8.3 mg/dL (8.4-10.2) L 04/07/19 04:25 Phosphorus 4.90 mg/dL (2.5-4.5) H 04/07/19 04:25 0.80 mg/dL (0.1-1.2) 04/07/19 04:25 AST 55 units/L (5-40) H 04/07/19 04:25 ALT 80 units/L (7-56) H 04/07/19 04:25 123 units/L (35-129) 04/07/19 04:25 0.013 ng/mL (0.00-0.029) 04/05/19 16:01 NT-Pro-B Natriuret Pep > 50716 pg/mL (0-900) H 04/05/19 16:01 6.3 g/dL (6.3-8.2) 04/07/19 04:25 3.7 g/dL (3.9-5) L 04/07/19 04:25 1.4 % 04/07/19 04:25 PTH Intact 197.4 pg/mL (15-65) H 04/07/19 04:25 1.0 /HPF (0.0-6.0) 04/06/19 18:00 2.0 /HPF (0.0-6.0) 04/06/19 18:00 U Epithel Cells (Auto) 1.0 /HPF (0-13.0) 04/06/19 18:00 1+ /HPF (Negative) 04/06/19 18:00 Few /HPF 04/06/19 18:00 Few /HPF 04/06/19 18:00 36.8 mg/dL (0.1-20.0) H 04/06/19 18:00 31.8 mg/dL (0.1-34.0) 04/06/19 18:00 Microalb/Creat Ratio 864.1 ug/mg 04/06/19 18:00 Protein/Creatinin Ratio 1.98 04/06/19 18:00 43 mmol/L 04/06/19 18:00 47.6 mmolL (110-250) L 04/06/19 18:00 73 mg/dL (5-11.8) H 04/06/19 18:00 - Imaging and Cardiology Chest x-ray: image reviewed US - abdomen: report reviewed, image reviewed Active Medications - Current Medications Current Medications: Generic Name Dose Route Start Last Admin Trade Name Freq PRN Reason Stop Dose Admin Acetaminophen 650 mg 04/05/19 19:46 Tylenol PO Q4H PRN Pain MILD(1-3)/Fever >100.5/VAZQUEZ Albuterol 2.5 mg 04/05/19 19:46 Proventil IH Q3HRT PRN Shortness Of Breath Albuterol/Ipratropium 1 ampul 04/05/19 20:00 04/07/19 14:18 Duoneb *Not For Prn Use* IH 1 ampul Q6HRT ANGÉLICA Administration Amiodarone HCl 200 mg 04/07/19 10:00 04/07/19 10:12 Cordarone PO 200 mg BID ANGÉLICA Administration Apixaban 2.5 mg 04/05/19 22:00 04/06/19 22:10 Eliquis PO 2.5 mg HS ANGÉLICA Administration Protocol Aspirin 81 mg 04/06/19 10:00 04/07/19 10:13 Halfprin Ec PO 81 mg QDAY ANGÉLICA Administration Atorvastatin Calcium 40 mg 04/05/19 22:00 04/06/19 22:11 Lipitor PO 40 mg QHS ANGÉLICA Administration Budesonide 0.5 mg 04/05/19 20:00 04/07/19 07:45 Pulmicort IH 0.5 mg Q12HRT ANGÉLICA Administration Citalopram Hydrobromide 20 mg 04/06/19 10:00 04/07/19 10:12 Celexa PO 20 mg QDAY ANGÉLICA Administration Docusate Sodium 100 mg 04/05/19 22:00 04/07/19 10:12 Colace PO 100 mg BID ANGÉLICA Administration Furosemide 40 mg 04/06/19 10:00 04/07/19 10:13 Lasix IV 40 mg DAILY ANGÉLICA Administration Guaifenesin 600 mg 04/05/19 22:00 04/07/19 10:13 Mucinex Er PO 600 mg BID ANGÉLICA Administration Hydralazine HCl 10 mg 04/05/19 21:16 Apresoline IV Q4HR PRN Blood Pressure Levothyroxine Sodium 50 mcg 04/06/19 10:00 04/07/19 10:13 Synthroid PO 50 mcg DAILY ANGÉLICA Administration Megestrol Acetate 400 mg 04/05/19 22:00 04/07/19 10:13 Megace PO 400 mg BID ANGÉLICA Administration Methylprednisolone Sodium Succinate 60 mg 04/05/19 22:00 04/07/19 15:05 Solu-Medrol IV 60 mg Q8HR ANGÉLICA Administration Metoprolol Tartrate 25 mg 04/05/19 22:00 04/07/19 10:13 Lopressor PO Not Given BID ANGÉLICA Ondansetron HCl 4 mg 04/05/19 19:46 Zofran IV Q8H PRN Nausea And Vomiting Potassium Chloride 10 meq 04/06/19 10:00 04/07/19 10:13 K-Dur PO 10 meq QDAY ANGÉLICA Administration Sodium Chloride 10 ml 04/05/19 22:00 04/07/19 10:14 Sodium Chloride Flush Syringe 10 Ml IV 10 ml BID ANGÉLICA Administration Sodium Chloride 10 ml 04/05/19 19:46 04/06/19 06:07 Sodium Chloride Flush Syringe 10 Ml IV 10 ml PRN PRN Administration LINE FLUSH Nutrition/Malnutrition Assess - Dietary Evaluation Nutrition/Malnutrition Findings: Nutrition Notes Start: 04/06/19 16:00 Freq: Status: Active Protocol: Document 04/06/19 16:00 RM (Rec: 04/06/19 16:09 RM [id number]) Nutrition Notes 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 No PEG or call center receptionist of TPN in record. 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 Pt stated that her appetite is good now and that she eats most of her meals. Stated UBW was 95 lbs last week. Percent of energy/protein needs met: 100%/100% Burn Absent Trauma Absent #1 Nutrition Diagnosis Underweight Etiology decreased appetite, COPD As Evidenced by Signs and Symptoms BMI 17.4 Is patient on ventilator? No Is Patient Ambulatory and/or Out of Bed Yes REE-([place] or-ambulatory/OOB) [ 1155.908 [id number]] Kcal/Kg value to use for calculation 34 Approximate Energy Requirements Using 1465 kcal/Kg Calculation Used for Recommendations Kcal/kg Additional Notes Protein Needs: 52-65g (1.2-1. 5g/kg) Fluid Needs:1 ml/kcal Nutrition Intervention Change Diet Order: Continue current Add Supplement/Snack (indicate name/kcal Ensure Clear Apple 1 daily /protein ) Provides kCal: 240 Provides Protein (gm) 8 Goal #1 Continue to meet at least 75% of calorie and protein needs via PO and ONS intakes Goal #2 Wt gain/maintenance Anticipated Discharge Needs: Cardiac diet Follow-Up By: 04/10/19 Additional Comments Follow for PO and ONS intakes
[2019-04-07] MEDS: ELIQUIS PO SCH (22:40)
[2019-04-08] MEDS: DUONEB *Not for PRN Use IH SCH ×4 (01:58→20:43)
[2019-04-08] MEDS: SOLU-Medrol IV SCH ×3 (06:02→21:19)
[2019-04-08] MEDS: PULMICORT IH SCH ×2 (07:55→20:43)
--- NOTE | 2019-04-08 10:16 | Progress Note ---
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 Current Visit: Yes Status: Acute (4) Permanent atrial fibrillation with RVR Current Visit: Yes Status: Acute (5) Chronic a-fib Current Visit: Yes Status: Chronic (6) HTN (hypertension) Current Visit: Yes Status: Chronic Qualifiers: Hypertension type: essential hypertension Qualified Code(s): I10 - Essential (primary) hypertension (7) History of CVA (cerebrovascular accident) Current Visit: Yes Status: Chronic (8) Tobacco use Current Visit: Yes Status: Chronic (9) COPD exacerbation Current Visit: No Status: Acute (10) GERD (gastroesophageal reflux disease) Current Visit: No Status: Chronic Qualifiers: Esophagitis presence: without esophagitis Qualified Code(s): K21.9 - Gastro-esophageal reflux disease without esophagitis (11) HLD (hyperlipidemia) Current Visit: No Status: Chronic Qualifiers: Hyperlipidemia type: mixed hyperlipidemia Qualified Code(s): E78.2 - Mixed hyperlipidemia Subjective Date of service: 04/08/19 Interval history: feels a lot better Objective Vital Signs Temp Pulse Pulse Resp Resp BP BP 04/08/19 08:20 97.4 F L 94 H 16 115/83 04/08/19 07:56 04/08/19 07:55 95 H 19 04/08/19 03:45 97.1 F L 88 18 108/75 04/07/19 22:54 97.5 F L 108 H 18 109/76 04/07/19 22:38 50 L 106/77 04/07/19 19:51 04/07/19 19:50 97 H 20 04/07/19 19:29 95 H 04/07/19 19:00 97.4 F L 50 L 20 106/77 04/07/19 18:48 97.4 F L 104 H 18 109/49 04/07/19 15:00 101 H 04/07/19 14:00 96 H 23 04/07/19 11:31 97.4 F L 100 H 22 101/77 04/07/19 10:28 100 H 18 106/80 Pulse Ox 04/08/19 08:20 96 04/08/19 07:56 97 04/08/19 07:55 04/08/19 03:45 97 04/07/19 22:54 97 04/07/19 22:38 04/07/19 19:51 100 04/07/19 19:50 04/07/19 19:29 04/07/19 19:00 100 04/07/19 18:48 100 04/07/19 15:00 04/07/19 14:00 04/07/19 11:31 100 04/07/19 10:28 98 - Physical Examination General: No Apparent Distress HEENT: Positive: PERRL, Normocephaly, Mucus Membranes Moist Neck: Positive: neck supple, trachea midline Neuro: Positive: Grossly Intact Abdomen: Positive: Unremarkable. Negative: Tender /Rectal: Other (deferred) Skin: Positive: Clear. Negative: Rash Musculoskeletal: No Pain Extremities: Present: normal. Absent: edema - Imaging and Cardiology EKG: report reviewed, image reviewed Echo: report reviewed (10/2018 showed EF 20-25%, septal wall hypertrophy, impaired relaxation, LA mildly dilated, RV systolic function mildly reduced, trivial pericardial effusion.) Cardiac cath: report reviewed ( 07/2017 showed mildly dilated LV, EF 40-45%, minimal coronary irregularities. )
[2019-04-08] MEDS ORDERED: LASIX PO ONE (10:26)
[2019-04-08] MEDS: MEGACE PO SCH ×2 (11:07→21:18)
[2019-04-08] MEDS: HALFPRIN EC PO SCH (11:08)
[2019-04-08] MEDS: K-DUR PO SCH (11:08)
[2019-04-08] MEDS: CORDARONE PO SCH ×2 (11:08→21:20)
[2019-04-08] MEDS: COLACE PO SCH ×2 (11:08→21:20)
[2019-04-08] MEDS: celeXA PO SCH (11:08)
[2019-04-08] MEDS: LASIX IV SCH (11:08)
[2019-04-08] MEDS: MUCINEX ER PO SCH ×2 (11:08→21:19)
[2019-04-08] MEDS: SYNTHROID PO SCH (11:08)
[2019-04-08] MEDS: LOPRESSOR PO SCH ×2 (11:09→21:22)
[2019-04-08 12:38] LABS: Calcium 8.4 mg/dL (8.4-10.2)
--- NOTE | 2019-04-08 14:04 | Progress Note ---
Assessment and Plan Acute hypoxic respiratory failure Acute Exacerbation of COPD Acute Kidney Injury possibly secondary to prerenal, cardiorenal syndrome, on u nderlying CKD, r/o obstruction Acute on chronic systolic CHF Essential HTN Atrial Fibrillation with RVR on Eliquis Hypothyroidism Hx of CVA Plan: -Renal function reviewed, SCr level worsening. Hold lasix for now. High BUN may also have some contribution from steroids. Urine Cr low signalling ATN. -Review of labs in [facility] labs from 2016-March of 2019 showed SCr level between 0.8-1.8 -Renal US showed no hydronephrosis, shows signs of CKD -Start bicarb tabs for acidosis -Check CXR in am for VS. -Holding lisinopril for now -Monitor blood pressures closely -Renally dose meds Subjective Date of service: 04/08/19 Interval history: Making urine. Objective - Exam Narrative Exam: General appearance: other (awake) EENT: ATNC Neck: Present: neck supple Respiratory: Decreased Breath Sounds Heart: regular, S1S2 Gastrointestinal: Present: normoactive bowel sounds. Absent: tenderness Integumentary: warm and dry Neurologic: alert and oriented x3 Musculoskeletal: Present: other (1+ edema to BLE) Psychiatric: cooperative - Vital Signs Vital signs: Vital Signs - 12hr 04/08/19 04/08/19 04/08/19 03:45 07:55 07:56 Temperature 97.1 F L Pulse Rate 88 Pulse Rate [ 95 H Anterior Bilateral Throughout] Respiratory 18 Rate Respiratory 19 Rate [Anterior Bilateral Throughout] Blood Pressure 108/75 O2 Sat by Pulse 97 97 Oximetry 04/08/19 04/08/19 04/08/19 08:20 11:09 11:14 Temperature 97.4 F L Pulse Rate 94 H Pulse Rate [ Anterior Bilateral Throughout] Respiratory 16 20 Rate Respiratory Rate [Anterior Bilateral Throughout] Blood Pressure 115/83 104/77 104/77 O2 Sat by Pulse 96 Oximetry 04/08/19 13:53 Temperature Pulse Rate Pulse Rate [ 92 H Anterior Bilateral Throughout] Respiratory Rate Respiratory 19 Rate [Anterior Bilateral Throughout] Blood Pressure O2 Sat by Pulse Oximetry - Lab 04/07/19 04:25 04/08/19 11:17 Most recent lab results Calcium 8.4 mg/dL (8.4-10.2) 04/08/19 11:17 Phosphorus 4.90 mg/dL (2.5-4.5) H 04/07/19 04:25 36.8 mg/dL (0.1-20.0) H 04/06/19 18:00 43 mmol/L 04/06/19 18:00 73 mg/dL (5-11.8) H 04/06/19 18:00 Medications & Allergies - Medications Allergies/Adverse Reactions: Allergies No Known Allergies Allergy (Verified 10/19/18 14:21) Home Medications: Home Medications Medication Instructions Recorded Confirmed Last Taken Type Apixaban [Eliquis] 2.5 mg PO HS 02/11/19 04/05/19 Unknown History Citalopram [Celexa] 20 mg PO QDAY 02/11/19 04/05/19 Unknown History Levothyroxine [Synthroid] 0.05 mg PO DAILY 02/11/19 04/05/19 Unknown History Lisinopril [Zestril TAB] 2.5 mg PO QDAY 02/11/19 04/05/19 Unknown History Metoprolol [Lopressor TAB] 25 mg PO BID 02/11/19 04/05/19 Unknown History Aspirin EC [Halfprin EC] 81 mg PO QDAY #30 tablet. 02/14/19 04/05/19 Unknown Rx Furosemide [Lasix TAB] 40 mg PO QDAY #30 tablet 02/14/19 04/05/19 Unknown Rx Potassium Chloride [K-Dur] 10 meq PO QDAY #30 tablet 02/14/19 04/05/19 Unknown Rx Albuterol Sulfate [Proventil Hfa] 2 puff IH Q4HR PRN #1 hfa.aer.ad 04/02/19 04/05/19 Unknown Rx Megestrol Acetate 400 mg PO BID 04/05/19 04/05/19 Unknown History Rosuvastatin Calcium 40 mg PO QDAY 04/05/19 04/05/19 Unknown History Tiotropium [place] [Spiriva 2.5 mcg IH DAILY 04/05/19 04/05/19 Unknown History Respimat] Active Medications: Generic Name Dose Route Start Last Admin Trade Name Freq PRN Reason Stop Dose Admin Acetaminophen 650 mg 04/05/19 19:46 Tylenol PO Q4H PRN Pain MILD(1-3)/Fever >100.5/VAZQUEZ Albuterol 2.5 mg 04/05/19 19:46 Proventil IH Q3HRT PRN Shortness Of Breath Albuterol/Ipratropium 1 ampul 04/05/19 20:00 04/08/19 13:52 Duoneb *Not For Prn Use* IH 1 ampul Q6HRT ANGÉLICA Administration Amiodarone HCl 200 mg 04/07/19 10:00 04/08/19 11:08 Cordarone PO 200 mg BID ANGÉLICA Administration Apixaban 2.5 mg 04/05/19 22:00 04/07/19 22:40 Eliquis PO 2.5 mg HS ANGÉLICA Administration Protocol Aspirin 81 mg 04/06/19 10:00 04/08/19 11:08 Halfprin Ec PO 81 mg QDAY ANGÉLICA Administration Atorvastatin Calcium 40 mg 04/05/19 22:00 04/07/19 22:40 Lipitor PO 40 mg QHS ANGÉLICA Administration Budesonide 0.5 mg 04/05/19 20:00 04/08/19 07:55 Pulmicort IH 0.5 mg Q12HRT ANGÉLICA Administration Citalopram Hydrobromide 20 mg 04/06/19 10:00 04/08/19 11:08 Celexa PO 20 mg QDAY ANGÉLICA Administration Docusate Sodium 100 mg 04/05/19 22:00 04/08/19 11:08 Colace PO 100 mg BID ANGÉLICA Administration Furosemide 40 mg 04/06/19 10:00 04/08/19 11:08 Lasix IV 40 mg DAILY ANGÉLICA Administration Guaifenesin 600 mg 04/05/19 22:00 04/08/19 11:08 Mucinex Er PO 600 mg BID ANGÉLICA Administration Hydralazine HCl 10 mg 04/05/19 21:16 Apresoline IV Q4HR PRN Blood Pressure Levothyroxine Sodium 50 mcg 04/06/19 10:00 04/08/19 11:08 Synthroid PO 50 mcg DAILY ANGÉLICA Administration Megestrol Acetate 400 mg 04/05/19 22:00 04/08/19 11:07 Megace PO 400 mg BID ANGÉLICA Administration Methylprednisolone Sodium Succinate 60 mg 04/05/19 22:00 04/08/19 06:02 Solu-Medrol IV 60 mg Q8HR ANGÉLICA Administration Metoprolol Tartrate 25 mg 04/05/19 22:00 04/08/19 11:09 Lopressor PO Not Given BID ANGÉLICA Ondansetron HCl 4 mg 04/05/19 19:46 04/08/19 06:02 Zofran IV 4 mg Q8H PRN Administration Nausea And Vomiting Potassium Chloride 10 meq 04/06/19 10:00 04/08/19 11:08 K-Dur PO 10 meq QDAY ANGÉLICA Administration Sodium Chloride 10 ml 04/05/19 22:00 04/07/19 22:42 Sodium Chloride Flush Syringe 10 Ml IV 10 ml BID ANGÉLICA Administration Sodium Chloride 10 ml 04/05/19 19:46 04/06/19 06:07 Sodium Chloride Flush Syringe 10 Ml IV 10 ml PRN PRN Administration LINE FLUSH
[2019-04-08] MEDS ORDERED: CEPACOL X STRENGTH MM PRN (14:31)
--- NOTE | 2019-04-08 19:01 | Progress Note ---
Assessment and Plan - Patient Problems (1) Acute respiratory failure Current Visit: Yes Status: Acute Qualifiers: Respiratory failure complication: hypoxia Qualified Code(s): J96.01 - Acute respiratory failure with hypoxia Plan to address problem: Agent acute respiratory failure improving. She nebulizes albuterol. (2) COPD exacerbation Current Visit: Yes Status: Acute Plan to address problem: As mentioned previously continue nebulizers impaired antibiotics steroids and BiPAP. Pulmonology following. (3) Permanent atrial fibrillation with RVR Current Visit: Yes Status: Acute Plan to address problem: Patient rate much better control. On amiodarone cannot tolerate digoxin. Unable to tolerate diltiazem as well. Continue Elaquis heart rate currently in the 100s a lower. (4) Renal insufficiency Current Visit: Yes Status: Chronic Plan to address problem: Will decrease Lasix to 20 units. Patient had an increase in creatinine. lasix was decreased and Chema was held. (5) Tobacco use Current Visit: Yes Status: Chronic (6) Acute on chronic combined systolic (congestive) and diastolic (congestive) heart failure Current Visit: No Status: Acute History Interval history: Patient at bedside no new concerns. Is off his off BiPAP machine. Resting comfortably. Much better breathing than yesterday. Hospitalist Physical - Constitutional Vitals: Temp Pulse Resp BP Pulse Ox 97.3 F L 101 H 16 90/63 95 04/08/19 16:20 04/08/19 16:20 04/08/19 16:20 04/08/19 16:20 04/08/19 16:20 General appearance: Present: no acute distress, mild distress - EENT Eyes: Present: PERRL, EOM intact ENT: hearing intact, clear oral mucosa, dentition normal, no oropharyngeal erythema, no poor dentition - Neck Neck: Present: supple, normal ROM - Respiratory Respiratory: bilateral: diminished - Cardiovascular Rhythm: regular (laterally) - Extremities Extremities: no ischemia, pulses intact, pulses symmetrical, No edema, normal temperature, normal color Peripheral Pulses: within normal limits - Abdominal General gastrointestinal: soft, non-tender, non-distended, no hypoactive bowel sounds - Integumentary Integumentary: Present: clear, warm, dry. Absent: jaundice, rash, clammy - Psychiatric Psychiatric: appropriate mood/affect, intact judgment & insight, memory intact - Neurologic Neurologic: CNII-XII intact, moves all extremities Results - Labs CBC & Chem 7: 04/07/19 04:25 04/08/19 11:17 Labs: Laboratory Last Values WBC 6.6 K/mm3 (4.5-11.0) 04/07/19 04:25 RBC 4.12 M/mm3 (3.65-5.03) 04/07/19 04:25 Hgb 12.8 gm/dl (10.1-14.3) 04/07/19 04:25 Hct 38.4 % (30.3-42.9) 04/07/19 04:25 MCV 93 fl (79-97) 04/07/19 04:25 MCH 31 pg (28-32) 04/07/19 04:25 MCHC 33 % (30-34) 04/07/19 04:25 RDW 15.4 % (13.2-15.2) H 04/07/19 04:25 Plt Count 103 K/mm3 (140-440) L 04/07/19 04:25 Lymph % (Auto) 33.6 % (13.4-35.0) 04/05/19 16:01 [place] % (Auto) 2.0 % (0.0-7.3) 04/06/19 05:36 Eos % (Auto) 0.0 % (0.0-4.3) 04/06/19 05:36 Baso % (Auto) 0.2 % (0.0-1.8) 04/05/19 16:01 Lymph # 1.9 K/mm3 (1.2-5.4) 04/05/19 16:01 [place] # 0.0 K/mm3 (0.0-0.8) 04/06/19 05:36 Eos # 0.0 K/mm3 (0.0-0.4) 04/06/19 05:36 Baso # 0.0 K/mm3 (0.0-0.1) 04/06/19 05:36 Add Manual Diff Complete 04/06/19 05:36 Total Counted 100 04/06/19 05:36 Seg Neutrophils % 71.9 % (40.0-70.0) H 04/06/19 05:36 Seg Neuts % (Manual) 76.0 % (40.0-70.0) H 04/06/19 05:36 0 % 04/06/19 05:36 22.0 % (13.4-35.0) 04/06/19 05:36 Reactive Lymphs % (Man) 0 % 04/06/19 05:36 2.0 % (0.0-7.3) 04/06/19 05:36 0 % (0.0-4.3) 04/06/19 05:36 0 % (0.0-1.8) 04/06/19 05:36 0 % 04/06/19 05:36 0 % 04/06/19 05:36 0 % 04/06/19 05:36 0 % 04/06/19 05:36 Nucleated RBC % Not Reportable 04/06/19 05:36 Seg Neutrophils # 1.6 K/mm3 (1.8-7.7) L 04/06/19 05:36 Seg Neutrophils # Man 1.7 K/mm3 (1.8-7.7) L 04/06/19 05:36 Band Neutrophils # 0.0 K/mm3 04/06/19 05:36 0.5 K/mm3 (1.2-5.4) L 04/06/19 05:36 Abs React Lymphs (Man) 0.0 K/mm3 04/06/19 05:36 0.0 K/mm3 (0.0-0.8) 04/06/19 05:36 0.0 K/mm3 (0.0-0.4) 04/06/19 05:36 0.0 K/mm3 (0.0-0.1) 04/06/19 05:36 0.0 K/mm3 04/06/19 05:36 0.0 K/mm3 04/06/19 05:36 0.0 K/mm3 04/06/19 05:36 Blast Cells # 0.0 K/mm3 04/06/19 05:36 WBC Morphology Not Reportable 04/06/19 05:36 Hypersegmented Neuts Not Reportable 04/06/19 05:36 Hyposegmented Neuts Not Reportable 04/06/19 05:36 Hypogranular Neuts Not Reportable 04/06/19 05:36 Not Reportable 04/06/19 05:36 Not Reportable 04/06/19 05:36 Not Reportable 04/06/19 05:36 Not Reportable 04/06/19 05:36 Not Reportable 04/06/19 05:36 Not Reportable 04/06/19 05:36 Cons 04/06/19 05:36 Not Reportable 04/06/19 05:36 Plt Clumps, EDTA Not Reportable 04/06/19 05:36 Rare 04/06/19 05:36 Not Reportable 04/06/19 05:36 Not Reportable 04/06/19 05:36 Plt Morphology Comment Not Reportable 04/06/19 05:36 RBC Morphology Not Reportable 04/06/19 05:36 Dimorphic RBCs Not Reportable 04/06/19 05:36 Not Reportable 04/06/19 05:36 Not Reportable 04/06/19 05:36 Not Reportable 04/06/19 05:36 Not Reportable 04/06/19 05:36 Not Reportable 04/06/19 05:36 Not Reportable 04/06/19 05:36 Not Reportable 04/06/19 05:36 Not Reportable 04/06/19 05:36 Not Reportable 04/06/19 05:36 Not Reportable 04/06/19 05:36 Not Reportable 04/06/19 05:36 Not Reportable 04/06/19 05:36 Not Reportable 04/06/19 05:36 Not Reportable 04/06/19 05:36 Not Reportable 04/06/19 05:36 Not Reportable 04/06/19 05:36 Not Reportable 04/06/19 05:36 Not Reportable 04/06/19 05:36 Not Reportable 04/06/19 05:36 Acanthocytes (Spur) Not Reportable 04/06/19 05:36 Rouleaux Not Reportable 04/06/19 05:36 Not Reportable 04/06/19 05:36 Not Reportable 04/06/19 05:36 Not Reportable 04/06/19 05:36 Not Reportable 04/06/19 05:36 Hem Pathologist Commnt No 04/06/19 05:36 PT 17.2 Sec. (12.2-14.9) H 04/05/19 Unknown INR 1.44 (0.87-1.13) H 04/05/19 Unknown APTT 24.7 Sec. (24.2-36.6) 04/05/19 Unknown POC ABG pH 7.389 (7.35-7.45) 04/05/19 16:41 POC ABG pCO2 32.7 (35-45) L 04/05/19 16:41 POC ABG pO2 313 (80-105) H 04/05/19 16:41 POC ABG HCO3 19.7 (22-26 mml/L) 04/05/19 16:41 POC ABG Total CO2 21 (23-27mmol/L) 04/05/19 16:41 POC ABG O2 Sat 100 04/05/19 16:41 POC ABG Base Excess -5 ((-2) - (+3)mmol/L) 04/05/19 16:41 55 % 04/05/19 16:41 Sodium 140 mmol/L (137-145) 04/08/19 11:17 Potassium 4.5 mmol/L (3.6-5.0) 04/08/19 11:17 Chloride 102.9 mmol/L (98-107) 04/08/19 11:17 Carbon Dioxide 15 mmol/L (22-30) L 04/08/19 11:17 27 mmol/L 04/08/19 11:17 BUN 82 mg/dL (7-17) H 04/08/19 11:17 2.9 mg/dL (0.7-1.2) H 04/08/19 11:17 Estimated GFR 16 ml/min 04/08/19 11:17 28 % 04/08/19 11:17 Glucose 217 mg/dL (65-100) H 04/08/19 11:17 Calcium 8.4 mg/dL (8.4-10.2) 04/08/19 11:17 Phosphorus 4.90 mg/dL (2.5-4.5) H 04/07/19 04:25 0.80 mg/dL (0.1-1.2) 04/07/19 04:25 AST 55 units/L (5-40) H 04/07/19 04:25 ALT 80 units/L (7-56) H 04/07/19 04:25 123 units/L (35-129) 04/07/19 04:25 0.013 ng/mL (0.00-0.029) 04/05/19 16:01 NT-Pro-B Natriuret Pep > 00993 pg/mL (0-900) H 04/05/19 16:01 6.3 g/dL (6.3-8.2) 04/07/19 04:25 3.7 g/dL (3.9-5) L 04/07/19 04:25 1.4 % 04/07/19 04:25 PTH Intact 197.4 pg/mL (15-65) H 04/07/19 04:25 1.0 /HPF (0.0-6.0) 04/06/19 18:00 2.0 /HPF (0.0-6.0) 04/06/19 18:00 U Epithel Cells (Auto) 1.0 /HPF (0-13.0) 04/06/19 18:00 1+ /HPF (Negative) 04/06/19 18:00 Few /HPF 04/06/19 18:00 Few /HPF 04/06/19 18:00 36.8 mg/dL (0.1-20.0) H 04/06/19 18:00 31.8 mg/dL (0.1-34.0) 04/06/19 18:00 Microalb/Creat Ratio 864.1 ug/mg 04/06/19 18:00 Protein/Creatinin Ratio 1.98 04/06/19 18:00 43 mmol/L 04/06/19 18:00 47.6 mmolL (110-250) L 04/06/19 18:00 73 mg/dL (5-11.8) H 04/06/19 18:00 Active Medications - Current Medications Current Medications: Generic Name Dose Route Start Last Admin Trade Name Freq PRN Reason Stop Dose Admin Acetaminophen 650 mg 04/05/19 19:46 Tylenol PO Q4H PRN Pain MILD(1-3)/Fever >100.5/VAZQUEZ Albuterol 2.5 mg 04/05/19 19:46 Proventil IH Q3HRT PRN Shortness Of Breath Albuterol/Ipratropium 1 ampul 04/05/19 20:00 04/08/19 13:52 Duoneb *Not For Prn Use* IH 1 ampul Q6HRT ANGÉLICA Administration Amiodarone HCl 200 mg 04/07/19 10:00 04/08/19 11:08 Cordarone PO 200 mg BID ANGÉLICA Administration Apixaban 2.5 mg 04/05/19 22:00 04/07/19 22:40 Eliquis PO 2.5 mg HS ANGÉLICA Administration Protocol Aspirin 81 mg 04/06/19 10:00 04/08/19 11:08 Halfprin Ec PO 81 mg QDAY ANGÉLICA Administration Atorvastatin Calcium 40 mg 04/05/19 22:00 04/07/19 22:40 Lipitor PO 40 mg QHS ANGÉLICA Administration Benzocaine/Menthol 1 each 04/08/19 14:31 Cepacol X Strength MM Q2H PRN Sore Throat Budesonide 0.5 mg 04/05/19 20:00 04/08/19 07:55 Pulmicort IH 0.5 mg Q12HRT ANGÉLICA Administration Citalopram Hydrobromide 20 mg 04/06/19 10:00 04/08/19 11:08 Celexa PO 20 mg QDAY ANGÉLICA Administration Docusate Sodium 100 mg 04/05/19 22:00 04/08/19 11:08 Colace PO 100 mg BID ANGÉLICA Administration Guaifenesin 600 mg 04/05/19 22:00 04/08/19 11:08 Mucinex Er PO 600 mg BID ANGÉLICA Administration Hydralazine HCl 10 mg 04/05/19 21:16 Apresoline IV Q4HR PRN Blood Pressure Levothyroxine Sodium 50 mcg 04/06/19 10:00 04/08/19 11:08 Synthroid PO 50 mcg DAILY ANGÉLICA Administration Megestrol Acetate 400 mg 04/05/19 22:00 04/08/19 11:07 Megace PO 400 mg BID ANGÉLICA Administration Methylprednisolone Sodium Succinate 60 mg 04/05/19 22:00 04/08/19 15:33 Solu-Medrol IV 60 mg Q8HR ANGÉLICA Administration Metoprolol Tartrate 25 mg 04/05/19 22:00 04/08/19 11:09 Lopressor PO Not Given BID ANGÉLICA Ondansetron HCl 4 mg 04/05/19 19:46 04/08/19 06:02 Zofran IV 4 mg Q8H PRN Administration Nausea And Vomiting Potassium Chloride 10 meq 04/06/19 10:00 04/08/19 11:08 K-Dur PO 10 meq QDAY ANGÉLICA Administration Sodium Bicarbonate 650 mg 04/08/19 20:00 Sodium Bicarbonate PO TID ANGÉLICA Sodium Chloride 10 ml 04/05/19 22:00 04/07/19 22:42 Sodium Chloride Flush Syringe 10 Ml IV 10 ml BID ANGÉLICA Administration Sodium Chloride 10 ml 04/05/19 19:46 04/06/19 06:07 Sodium Chloride Flush Syringe 10 Ml IV 10 ml PRN PRN Administration LINE FLUSH Nutrition/Malnutrition Assess - Dietary Evaluation Nutrition/Malnutrition Findings: Nutrition Notes Start: 04/06/19 16:00 Freq: Status: Active Protocol: Document 04/06/19 16:00 RM (Rec: 04/06/19 16:09 RM [id number]) Nutrition Notes 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 No PEG or radiology receptionist of TPN in record. 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 Pt stated that her appetite is good now and that she eats most of her meals. Stated UBW was 95 lbs last week. Percent of energy/protein needs met: 100%/100% Burn Absent Trauma Absent #1 Nutrition Diagnosis Underweight Etiology decreased appetite, COPD As Evidenced by Signs and Symptoms BMI 17.4 Is patient on ventilator? No Is Patient Ambulatory and/or Out of Bed Yes REE-([place]-ambulatory/OOB) [ 1155.908 [id number]] Kcal/Kg value to use for calculation 34 Approximate Energy Requirements Using 1465 kcal/Kg Calculation Used for Recommendations Kcal/kg Additional Notes Protein Needs: 52-65g (1.2-1. 5g/kg) Fluid Needs:1 ml/kcal Nutrition Intervention Change Diet Order: Continue current Add Supplement/Snack (indicate name/kcal Ensure Clear Apple 1 daily /protein ) Provides kCal: 240 Provides Protein (gm) 8 Goal #1 Continue to meet at least 75% of calorie and protein needs via PO and ONS intakes Goal #2 Wt gain/maintenance Anticipated Discharge Needs: Cardiac diet Follow-Up By: 04/10/19 Additional Comments Follow for PO and ONS intakes
[2019-04-08] MEDS: SODIUM BICARBONATE PO SCH (21:18)
[2019-04-08] MEDS: ELIQUIS PO SCH (21:20)
[2019-04-08] MEDS: SODIUM CHLORIDE FLUSH SYRINGE 10 ML IV SCH (21:23)
[2019-04-09] MEDS: SOLU-Medrol IV SCH ×3 (05:17→21:11)
[2019-04-09] MEDS: PULMICORT IH SCH ×2 (07:44→19:26)
[2019-04-09] MEDS: DUONEB *Not for PRN Use IH SCH ×3 (07:44→19:25)
--- NOTE | 2019-04-09 09:44 | XRay Report ---
CHEST 1 VIEW INDICATION / CLINICAL INFORMATION: congestion. COMPARISON: 04/05/2019 FINDINGS: SUPPORT DEVICES: None. HEART / MEDIASTINUM: Cardiomegaly LUNGS / PLEURA: Mild interstitial pulmonary edema persists. A small right pleural effusion has develo ped No pneumothorax. ADDITIONAL FINDINGS: No significant additional findings. IMPRESSION: Mild interstitial pulmonary edema unchanged from 04/05/2019. A small right pleural effusion has develo ped Signer Name: Teddy Horn MD FACR Signed: 04/09/2019 9:39 AM Workstation Name: [id number]
[2019-04-09] MEDS: celeXA PO SCH (10:05)
[2019-04-09] MEDS: COLACE PO SCH ×2 (10:05→21:13)
[2019-04-09] MEDS: HALFPRIN EC PO SCH (10:05)
[2019-04-09] MEDS: MUCINEX ER PO SCH ×2 (10:05→21:12)
[2019-04-09] MEDS: CORDARONE PO SCH ×2 (10:05→21:12)
[2019-04-09] MEDS: SYNTHROID PO SCH (10:05)
[2019-04-09] MEDS: SODIUM CHLORIDE FLUSH SYRINGE 10 ML IV SCH ×2 (10:06→21:14)
[2019-04-09] MEDS: LOPRESSOR PO SCH ×2 (10:09→21:28)
[2019-04-09] MEDS: SODIUM BICARBONATE PO SCH ×3 (10:13→21:12)
[2019-04-09] MEDS: MEGACE PO SCH ×2 (10:13→21:17)
[2019-04-09] MEDS: K-DUR PO SCH (10:13)
--- NOTE | 2019-04-09 11:33 | Progress Note ---
Assessment and Plan Patient's cardiac status is improving. Continue to hold Lasix and lisinopril per nephrology. Rate control options are limited - unable to utilize digoxin and blood pressures are borderline. Continue amiodarone at current dose and will continue to monitor. The patient has been seen in conjunction with Dr. Gina Benjamin, who agrees with the assessment and plan. - Patient Problems (1) Nonischemic dilated cardiomyopathy Current Visit: Yes Status: Chronic (2) Permanent atrial fibrillation with RVR Current Visit: Yes Status: Acute (3) HTN (hypertension) Current Visit: Yes Status: Chronic Qualifiers: Hypertension type: essential hypertension Qualified Code(s): I10 - Essential (primary) hypertension (4) History of CVA (cerebrovascular accident) Current Visit: Yes Status: Chronic (5) Renal insufficiency Current Visit: Yes Status: Chronic (6) Tobacco use Current Visit: Yes Status: Chronic (7) Acute respiratory failure Current Visit: No Status: Acute Qualifiers: Respiratory failure complication: hypoxia Qualified Code(s): J96.01 - Acute respiratory failure with hypoxia (8) COPD exacerbation Current Visit: No Status: Acute Subjective Date of service: 04/09/19 Interval history: Patient is lying in bed in [facility]. Breathing is improved. She has no complaints presently. Telemetry reviewed - episodes of afib with RVR noted overnight, which were apparently asymptomatic. Objective Last Vital Signs Temp 97.1 F L 04/09/19 08:16 Pulse 112 H 04/09/19 10:09 Resp 18 04/09/19 08:16 BP 87/61 04/09/19 08:16 Pulse Ox 96 04/09/19 08:16 - Physical Examination General: No Apparent Distress HEENT: Positive: PERRL, Normocephaly, Mucus Membranes Moist Neck: Positive: neck supple, trachea midline Cardiac: Positive: irregularly irregular Lungs: Positive: Decreased Breath Sounds Neuro: Positive: Grossly Intact Abdomen: Positive: Unremarkable. Negative: Tender /Rectal: Other (deferred) Skin: Positive: Clear. Negative: Rash Musculoskeletal: No Pain Extremities: Present: normal. Absent: edema - Labs and Meds Comprehensive Metabolic Panel 04/08/19 Range/Units 11:17 Sodium 140 (137-145) mmol/L Potassium 4.5 (3.6-5.0) mmol/L Chloride 102.9 (98-107) mmol/L Carbon Dioxide 15 L (22-30) mmol/L BUN 82 H (7-17) mg/dL Creatinine 2.9 H (0.7-1.2) mg/dL Glucose 217 H (65-100) mg/dL Calcium 8.4 (8.4-10.2) mg/dL - Imaging and Cardiology EKG: report reviewed, image reviewed Echo: report reviewed (10/2018 showed EF 20-25%, septal wall hypertrophy, impaired relaxation, LA mildly dilated, RV systolic function mildly reduced, trivial pericardial effusion.) Cardiac cath: report reviewed ( 07/2017 showed mildly dilated LV, EF 40-45%, minimal coronary irregularities. )
[2019-04-09 11:41] LABS: Calcium 7.9 mg/dL (8.4-10.2)
--- NOTE | 2019-04-09 14:10 | Progress Note ---
Assessment and Plan Acute hypoxic respiratory failure Acute Exacerbation of COPD Acute Kidney Injury possibly secondary to prerenal, ATN on underlying CKD, r/o obstruction Acute on chronic systolic CHF Essential HTN Atrial Fibrillation with RVR on Eliquis Hypothyroidism Hx of CVA Plan: -Renal function reviewed, SCr level worsening. BP low as well. Hold lasix for now. High BUN may also have some contribution from steroids. Urine Cr low signalling ATN. -Start NS at 50 mls/hr for 1 day as well as midodrine to boast up BP and for BUTCH. Keep close eye on volume status while on IVFs as CXR mildly congested. -Review of labs in [facility] labs from 2016-March of 2019 showed SCr level between 0.8-1.8 -Renal US showed no hydronephrosis, shows signs of CKD -Continue bicarb tabs for acidosis -Holding lisinopril for now -Monitor blood pressures closely -Renally dose meds Subjective Date of service: 04/09/19 Interval history: Making urine. Objective - Exam Narrative Exam: General appearance: other (awake) EENT: ATNC Neck: Present: neck supple Respiratory: Decreased Breath Sounds Heart: regular, S1S2 Gastrointestinal: Present: normoactive bowel sounds. Absent: tenderness Integumentary: warm and dry Neurologic: alert and oriented x3 Musculoskeletal: Present: other (1+ edema to BLE) Psychiatric: cooperative - Vital Signs Vital signs: Vital Signs - 12hr 04/09/19 04/09/19 04/09/19 05:03 05:04 08:16 Temperature 97.9 F 97.1 F L Pulse Rate 106 H 112 H Respiratory 20 18 Rate Blood Pressure 94/69 87/61 O2 Sat by Pulse 96 96 Oximetry 04/09/19 04/09/19 10:09 11:26 Temperature 98.3 F Pulse Rate 112 H 104 H Respiratory 18 Rate Blood Pressure 99/63 O2 Sat by Pulse 95 Oximetry - Lab 04/07/19 04:25 04/09/19 10:49 Most recent lab results Calcium 7.9 mg/dL (8.4-10.2) L 04/09/19 10:49 Phosphorus 4.90 mg/dL (2.5-4.5) H 04/07/19 04:25 36.8 mg/dL (0.1-20.0) H 04/06/19 18:00 43 mmol/L 04/06/19 18:00 73 mg/dL (5-11.8) H 04/06/19 18:00 Medications & Allergies - Medications Allergies/Adverse Reactions: Allergies No Known Allergies Allergy (Verified 10/19/18 14:21) Home Medications: Home Medications Medication Instructions Recorded Confirmed Last Taken Type Apixaban [Eliquis] 2.5 mg PO HS 02/11/19 04/05/19 Unknown History Citalopram [Celexa] 20 mg PO QDAY 02/11/19 04/05/19 Unknown History Levothyroxine [Synthroid] 0.05 mg PO DAILY 02/11/19 04/05/19 Unknown History Lisinopril [Zestril TAB] 2.5 mg PO QDAY 02/11/19 04/05/19 Unknown History Metoprolol [Lopressor TAB] 25 mg PO BID 02/11/19 04/05/19 Unknown History Aspirin EC [Halfprin EC] 81 mg PO QDAY #30 tablet. 02/14/19 04/05/19 Unknown Rx Furosemide [Lasix TAB] 40 mg PO QDAY #30 tablet 02/14/19 04/05/19 Unknown Rx Potassium Chloride [K-Dur] 10 meq PO QDAY #30 tablet 02/14/19 04/05/19 Unknown Rx Albuterol Sulfate [Proventil Hfa] 2 puff IH Q4HR PRN #1 hfa.aer.ad 04/02/19 04/05/19 Unknown Rx Megestrol Acetate 400 mg PO BID 04/05/19 04/05/19 Unknown History Rosuvastatin Calcium 40 mg PO QDAY 04/05/19 04/05/19 Unknown History Tiotropium [place] [Spiriva 2.5 mcg IH DAILY 04/05/19 04/05/19 Unknown History Respimat] Active Medications: Generic Name Dose Route Start Last Admin Trade Name Freq PRN Reason Stop Dose Admin Acetaminophen 650 mg 04/05/19 19:46 Tylenol PO Q4H PRN Pain MILD(1-3)/Fever >100.5/VAZQUEZ Albuterol 2.5 mg 04/05/19 19:46 Proventil IH Q3HRT PRN Shortness Of Breath Albuterol/Ipratropium 1 ampul 04/08/19 20:00 04/09/19 13:28 Duoneb *Not For Prn Use* IH 1 ampul TIDRT ANGÉLICA Administration Amiodarone HCl 200 mg 04/07/19 10:00 04/09/19 10:05 Cordarone PO 200 mg BID ANGÉLICA Administration Apixaban 2.5 mg 04/05/19 22:00 04/08/19 21:20 Eliquis PO 2.5 mg HS ANGÉLICA Administration Protocol Aspirin 81 mg 04/06/19 10:00 04/09/19 10:05 Halfprin Ec PO 81 mg QDAY ANGÉLICA Administration Atorvastatin Calcium 40 mg 04/05/19 22:00 04/08/19 21:21 Lipitor PO 40 mg QHS ANGÉLICA Administration Benzocaine/Menthol 1 each 04/08/19 14:31 Cepacol X Strength MM Q2H PRN Sore Throat Budesonide 0.5 mg 04/05/19 20:00 04/09/19 07:44 Pulmicort IH 0.5 mg Q12HRT ANGÉLICA Administration Citalopram Hydrobromide 20 mg 04/06/19 10:00 04/09/19 10:05 Celexa PO 20 mg QDAY ANGÉLICA Administration Docusate Sodium 100 mg 04/05/19 22:00 04/09/19 10:05 Colace PO 100 mg BID ANGÉLICA Administration Guaifenesin 600 mg 04/05/19 22:00 04/09/19 10:05 Mucinex Er PO 600 mg BID ANGÉLICA Administration Hydralazine HCl 10 mg 04/05/19 21:16 Apresoline IV Q4HR PRN Blood Pressure Levothyroxine Sodium 50 mcg 04/06/19 10:00 04/09/19 10:05 Synthroid PO 50 mcg DAILY ANGÉLICA Administration Megestrol Acetate 400 mg 04/05/19 22:00 04/09/19 10:13 Megace PO 400 mg BID ANGÉLICA Administration Methylprednisolone Sodium Succinate 60 mg 04/05/19 22:00 04/09/19 05:17 Solu-Medrol IV 60 mg Q8HR ANGÉLICA Administration Metoprolol Tartrate 25 mg 04/05/19 22:00 04/09/19 10:09 Lopressor PO 25 mg BID ANGÉLICA Administration Ondansetron HCl 4 mg 04/05/19 19:46 04/08/19 06:02 Zofran IV 4 mg Q8H PRN Administration Nausea And Vomiting Potassium Chloride 10 meq 04/06/19 10:00 04/09/19 10:13 K-Dur PO 10 meq QDAY ANGÉLICA Administration Sodium Bicarbonate 650 mg 04/08/19 20:00 04/09/19 10:13 Sodium Bicarbonate PO 650 mg TID ANGÉLICA Administration Sodium Chloride 10 ml 04/05/19 22:00 04/09/19 10:06 Sodium Chloride Flush Syringe 10 Ml IV 10 ml BID ANGÉLICA Administration Sodium Chloride 10 ml 04/05/19 19:46 04/06/19 06:07 Sodium Chloride Flush Syringe 10 Ml IV 10 ml PRN PRN Administration LINE FLUSH
--- NOTE | 2019-04-09 14:28 | Progress Note ---
Assessment and Plan Assessment and plan: Patient is a 63-year-old female who is a former smoker with history of HTN, COPD, CHF, A. fib with RVR , CVA, nonischemic dilated cardiomyopathy, hypothyroidism who presents to [facility] ED with complaints of difficulty breathing and for the past 2 days. Of note pt was seen in ED on three days ago (04/02) with similar complaints. She was treat with nebulizer tx and IV steriods with improvement in symptoms. She was discharge on nebulizer tx, oral prednisone, and Tessalon Perles. One day later her symptoms began to worsened. She continued with nebs and oral steriods with no relief. Upon arrival to ED she was noted to be hypoxic and placed on BiPaP. Also complains of cough with occasional sputum production. * Echo: report reviewed (10/2018 showed EF 20-25%, septal wall hypertrophy, impaired relaxation, LA mildly dilated, RV systolic function mildly reduced, trivial pericardial effusion.) * Cardiac cath 07/2017 showed mildly dilated LV, EF 40-45%, minimal coronary irregularities * EKG: report reviewed, image reviewed: Atrial Fibrillation Acute exacerbation of COPD -Scheduled DuoNebs and Pulmicort, Albuterol prn -Systemic steriods -Mucinex Acute Hypoxic Respiratory Failure -No baseline oxygen requirements -hypoxic on RA -Currently off BiPAP -ABG 7.389/32.7/313/19.7 (done on 55% FiO2) -Monitor saturations wean as tolerate Acute on chronic systolic heart failure -Initiate CHF protocol -CXR showed: Worsened CHF with mild perihilar [place] [address] -EF 20-25% on Echo (10/2018) -Diurese with IV diuretics -Cardiology consulted Acute kidney injury, vasomotor nephropathy -Cr 1.9 with GFR 26 on this admission -Baseline Cr 1.1 - 1.2 (01/2019) -Gentle hyrdration with IVF -Avoid nephrotoxic agents -Renal dose all meds -Nephrology consulted Atrial fibrillation with RVR -On anticoagulation with Eliquis -Continuous telemetry monitoring start Amiodarone per Cardiology Hypertension -Continue to monitor BP -Hold JUAN -Resume home antihypertensive meds -IV hydralazine when necessary DVT PPX -on Eliquis -SCD's disposition; continue inpatient care, once renal function stabilizes, CR up to 3.7 now. Also pt was initially 84% with mild exertion on o2 and came up to 94% at rest, so patient will most likely need home O2 History Interval history: Patient was seen and examined. Follow-up on current diagnosis of AE COPD. No Ov ernight events reported to me. Patient denies any chest pain, nausea/vomiting or severe headaches. Imaging, nursing note, chart, labs and old chart reviewed. Discussed with patient. Hospitalist Physical - Physical exam Narrative exam: Gen: cachetic bmi 17.4, chronically ill appearing, on 4liters O2 (new to O2), bipap on standby at bedside, nad a/o x 3 HEENT: NCAT, EOMI, PERRL, OP Clear Neck: supple, no adenopathy, no thyromegaly, no JVD CVS/Heart: irregular irregular, normal S1S2, pulses present bilaterally Chest/Lungs: diminished bs bilateral, Symmetrical chest expansion, good air entry bilaterally GI/Abdomen: soft, NTND, good bowel sounds, no guarding or rebound /Bladder: no suprapubic tenderness, no CVA or paraspinal tenderness Extermity/Skin: trace ble MSK: FROM x 4 Neuro: CN 2-12 grossly intact, no new focal deficits Psych: calm - Constitutional Vitals: Temp Pulse Resp BP Pulse Ox 98.3 F 104 H 18 99/63 95 04/09/19 11:26 04/09/19 11:26 04/09/19 11:26 04/09/19 11:26 04/09/19 11:26 General appearance: Present: no acute distress. Absent: mild distress Results - Labs CBC & Chem 7: 04/07/19 04:25 04/09/19 10:49 Labs: Laboratory Last Values WBC 6.6 K/mm3 (4.5-11.0) 04/07/19 04:25 RBC 4.12 M/mm3 (3.65-5.03) 04/07/19 04:25 Hgb 12.8 gm/dl (10.1-14.3) 04/07/19 04:25 Hct 38.4 % (30.3-42.9) 04/07/19 04:25 MCV 93 fl (79-97) 04/07/19 04:25 MCH 31 pg (28-32) 04/07/19 04:25 MCHC 33 % (30-34) 04/07/19 04:25 RDW 15.4 % (13.2-15.2) H 04/07/19 04:25 Plt Count 103 K/mm3 (140-440) L 04/07/19 04:25 Lymph % (Auto) 33.6 % (13.4-35.0) 04/05/19 16:01 Rooks % (Auto) 2.0 % (0.0-7.3) 04/06/19 05:36 Eos % (Auto) 0.0 % (0.0-4.3) 04/06/19 05:36 Baso % (Auto) 0.2 % (0.0-1.8) 04/05/19 16:01 Lymph # 1.9 K/mm3 (1.2-5.4) 04/05/19 16:01 Rooks # 0.0 K/mm3 (0.0-0.8) 04/06/19 05:36 Eos # 0.0 K/mm3 (0.0-0.4) 04/06/19 05:36 Baso # 0.0 K/mm3 (0.0-0.1) 04/06/19 05:36 Add Manual Diff Complete 04/06/19 05:36 Total Counted 100 04/06/19 05:36 Seg Neutrophils % 71.9 % (40.0-70.0) H 04/06/19 05:36 Seg Neuts % (Manual) 76.0 % (40.0-70.0) H 04/06/19 05:36 0 % 04/06/19 05:36 22.0 % (13.4-35.0) 04/06/19 05:36 Reactive Lymphs % (Man) 0 % 04/06/19 05:36 2.0 % (0.0-7.3) 04/06/19 05:36 0 % (0.0-4.3) 04/06/19 05:36 0 % (0.0-1.8) 04/06/19 05:36 0 % 04/06/19 05:36 0 % 04/06/19 05:36 0 % 04/06/19 05:36 0 % 04/06/19 05:36 Nucleated RBC % Not Reportable 04/06/19 05:36 Seg Neutrophils # 1.6 K/mm3 (1.8-7.7) L 04/06/19 05:36 Seg Neutrophils # Man 1.7 K/mm3 (1.8-7.7) L 04/06/19 05:36 Band Neutrophils # 0.0 K/mm3 04/06/19 05:36 0.5 K/mm3 (1.2-5.4) L 04/06/19 05:36 Abs React Lymphs (Man) 0.0 K/mm3 04/06/19 05:36 0.0 K/mm3 (0.0-0.8) 04/06/19 05:36 0.0 K/mm3 (0.0-0.4) 04/06/19 05:36 0.0 K/mm3 (0.0-0.1) 04/06/19 05:36 0.0 K/mm3 04/06/19 05:36 0.0 K/mm3 04/06/19 05:36 0.0 K/mm3 04/06/19 05:36 Blast Cells # 0.0 K/mm3 04/06/19 05:36 WBC Morphology Not Reportable 04/06/19 05:36 Hypersegmented Neuts Not Reportable 04/06/19 05:36 Hyposegmented Neuts Not Reportable 04/06/19 05:36 Hypogranular Neuts Not Reportable 04/06/19 05:36 Not Reportable 04/06/19 05:36 Not Reportable 04/06/19 05:36 Not Reportable 04/06/19 05:36 Not Reportable 04/06/19 05:36 Not Reportable 04/06/19 05:36 Not Reportable 04/06/19 05:36 Cons 04/06/19 05:36 Not Reportable 04/06/19 05:36 Plt Clumps, EDTA Not Reportable 04/06/19 05:36 Rare 04/06/19 05:36 Not Reportable 04/06/19 05:36 Not Reportable 04/06/19 05:36 Plt Morphology Comment Not Reportable 04/06/19 05:36 RBC Morphology Not Reportable 04/06/19 05:36 Dimorphic RBCs Not Reportable 04/06/19 05:36 Not Reportable 04/06/19 05:36 Not Reportable 04/06/19 05:36 Not Reportable 04/06/19 05:36 Not Reportable 04/06/19 05:36 Not Reportable 04/06/19 05:36 Not Reportable 04/06/19 05:36 Not Reportable 04/06/19 05:36 Not Reportable 04/06/19 05:36 Not Reportable 04/06/19 05:36 Not Reportable 04/06/19 05:36 Not Reportable 04/06/19 05:36 Not Reportable 04/06/19 05:36 Not Reportable 04/06/19 05:36 Not Reportable 04/06/19 05:36 Not Reportable 04/06/19 05:36 Not Reportable 04/06/19 05:36 Not Reportable 04/06/19 05:36 Not Reportable 04/06/19 05:36 Not Reportable 04/06/19 05:36 Acanthocytes (Spur) Not Reportable 04/06/19 05:36 Rouleaux Not Reportable 04/06/19 05:36 Not Reportable 04/06/19 05:36 Not Reportable 04/06/19 05:36 Not Reportable 04/06/19 05:36 Not Reportable 04/06/19 05:36 Hem Pathologist Commnt No 04/06/19 05:36 PT 17.2 Sec. (12.2-14.9) H 04/05/19 Unknown INR 1.44 (0.87-1.13) H 04/05/19 Unknown APTT 24.7 Sec. (24.2-36.6) 04/05/19 Unknown POC ABG pH 7.389 (7.35-7.45) 04/05/19 16:41 POC ABG pCO2 32.7 (35-45) L 04/05/19 16:41 POC ABG pO2 313 (80-105) H 04/05/19 16:41 POC ABG HCO3 19.7 (22-26 mml/L) 04/05/19 16:41 POC ABG Total CO2 21 (23-27mmol/L) 04/05/19 16:41 POC ABG O2 Sat 100 04/05/19 16:41 POC ABG Base Excess -5 ((-2) - (+3)mmol/L) 04/05/19 16:41 55 % 04/05/19 16:41 Sodium 137 mmol/L (137-145) 04/09/19 10:49 Potassium 4.4 mmol/L (3.6-5.0) 04/09/19 10:49 Chloride 94.2 mmol/L (98-107) L 04/09/19 10:49 Carbon Dioxide 19 mmol/L (22-30) L 04/09/19 10:49 28 mmol/L 04/09/19 10:49 BUN 98 mg/dL (7-17) H 04/09/19 10:49 3.7 mg/dL (0.7-1.2) H 04/09/19 10:49 Estimated GFR 12 ml/min 04/09/19 10:49 26 % 04/09/19 10:49 Glucose 216 mg/dL (65-100) H 04/09/19 10:49 Calcium 7.9 mg/dL (8.4-10.2) L 04/09/19 10:49 Phosphorus 4.90 mg/dL (2.5-4.5) H 04/07/19 04:25 0.80 mg/dL (0.1-1.2) 04/07/19 04:25 AST 55 units/L (5-40) H 04/07/19 04:25 ALT 80 units/L (7-56) H 04/07/19 04:25 123 units/L (35-129) 04/07/19 04:25 0.013 ng/mL (0.00-0.029) 04/05/19 16:01 NT-Pro-B Natriuret Pep > 19002 pg/mL (0-900) H 04/05/19 16:01 6.3 g/dL (6.3-8.2) 04/07/19 04:25 3.7 g/dL (3.9-5) L 04/07/19 04:25 1.4 % 04/07/19 04:25 PTH Intact 197.4 pg/mL (15-65) H 04/07/19 04:25 1.0 /HPF (0.0-6.0) 04/06/19 18:00 2.0 /HPF (0.0-6.0) 04/06/19 18:00 U Epithel Cells (Auto) 1.0 /HPF (0-13.0) 04/06/19 18:00 1+ /HPF (Negative) 04/06/19 18:00 Few /HPF 04/06/19 18:00 Few /HPF 04/06/19 18:00 36.8 mg/dL (0.1-20.0) H 04/06/19 18:00 31.8 mg/dL (0.1-34.0) 04/06/19 18:00 Microalb/Creat Ratio 864.1 ug/mg 04/06/19 18:00 Protein/Creatinin Ratio 1.98 04/06/19 18:00 43 mmol/L 04/06/19 18:00 47.6 mmolL (110-250) L 04/06/19 18:00 73 mg/dL (5-11.8) H 04/06/19 18:00 Active Medications - Current Medications Current Medications: Generic Name Dose Route Start Last Admin Trade Name Freq PRN Reason Stop Dose Admin Acetaminophen 650 mg 04/05/19 19:46 Tylenol PO Q4H PRN Pain MILD(1-3)/Fever >100.5/VAZQUEZ Albuterol 2.5 mg 04/05/19 19:46 Proventil IH Q3HRT PRN Shortness Of Breath Albuterol/Ipratropium 1 ampul 04/08/19 20:00 04/09/19 13:28 Duoneb *Not For Prn Use* IH 1 ampul TIDRT ANGÉLICA Administration Amiodarone HCl 200 mg 04/07/19 10:00 04/09/19 10:05 Cordarone PO 200 mg BID ANGÉLICA Administration Apixaban 2.5 mg 04/05/19 22:00 04/08/19 21:20 Eliquis PO 2.5 mg HS ANGÉLICA Administration Protocol Aspirin 81 mg 04/06/19 10:00 04/09/19 10:05 Halfprin Ec PO 81 mg QDAY ANGÉLICA Administration Atorvastatin Calcium 40 mg 04/05/19 22:00 04/08/19 21:21 Lipitor PO 40 mg QHS ANGÉLICA Administration Benzocaine/Menthol 1 each 04/08/19 14:31 Cepacol X Strength MM Q2H PRN Sore Throat Budesonide 0.5 mg 04/05/19 20:00 04/09/19 07:44 Pulmicort IH 0.5 mg Q12HRT ANGÉLICA Administration Citalopram Hydrobromide 20 mg 04/06/19 10:00 04/09/19 10:05 Celexa PO 20 mg QDAY ANGÉLICA Administration Docusate Sodium 100 mg 04/05/19 22:00 04/09/19 10:05 Colace PO 100 mg BID ANGÉLICA Administration Guaifenesin 600 mg 04/05/19 22:00 04/09/19 10:05 Mucinex Er PO 600 mg BID ANGÉLICA Administration Hydralazine HCl 10 mg 04/05/19 21:16 Apresoline IV Q4HR PRN Blood Pressure Sodium Chloride 1,000 mls @ 50 mls/hr 04/09/19 15:00 Nacl 0.9% 1000 Ml IV 04/10/19 16:00 DIRECT ANGÉLICA Levothyroxine Sodium 50 mcg 04/06/19 10:00 04/09/19 10:05 Synthroid PO 50 mcg DAILY ANGÉLICA Administration Megestrol Acetate 400 mg 04/05/19 22:00 04/09/19 10:13 Megace PO 400 mg BID ANGÉLICA Administration Methylprednisolone Sodium Succinate 60 mg 04/05/19 22:00 04/09/19 14:12 Solu-Medrol IV 60 mg Q8HR ANGÉLICA Administration Metoprolol Tartrate 25 mg 04/05/19 22:00 04/09/19 10:09 Lopressor PO 25 mg BID ANGÉLICA Administration Midodrine 10 mg 04/09/19 16:00 Proamatine PO TID@0800,1200,1600 ANGÉLICA Ondansetron HCl 4 mg 04/05/19 19:46 04/08/19 06:02 Zofran IV 4 mg Q8H PRN Administration Nausea And Vomiting Potassium Chloride 10 meq 04/06/19 10:00 04/09/19 10:13 K-Dur PO 10 meq QDAY ANGÉLICA Administration Sodium Bicarbonate 650 mg 04/08/19 20:00 04/09/19 14:15 Sodium Bicarbonate PO 650 mg TID ANGÉLICA Administration Sodium Chloride 10 ml 04/05/19 22:00 04/09/19 10:06 Sodium Chloride Flush Syringe 10 Ml IV 10 ml BID ANGÉLICA Administration Sodium Chloride 10 ml 04/05/19 19:46 04/06/19 06:07 Sodium Chloride Flush Syringe 10 Ml IV 10 ml PRN PRN Administration LINE FLUSH Nutrition/Malnutrition Assess - Dietary Evaluation Nutrition/Malnutrition Findings: Nutrition Notes Start: 04/06/19 16:00 Freq: Status: Active Protocol: Document 04/06/19 16:00 RM (Rec: 04/06/19 16:09 RM [email or web address]) Nutrition Notes 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 No PEG or reception clerk of TPN in record. Pt stated that [employer] her appetite was poor and that she was not eating X 2-3 days. Pt stated that her appetite is good now and that she eats most of her meals. Stated UBW was 95 lbs last week. Percent of energy/protein needs met: 100%/100% Burn Absent Trauma Absent #1 Nutrition Diagnosis Underweight Etiology decreased appetite, COPD As Evidenced by Signs and Symptoms BMI 17.4 Is patient on ventilator? No Is Patient Ambulatory and/or Out of Bed Yes REE-([facility]-ambulatory/OOB) [ 1155.908 [id number]] Kcal/Kg value to use for calculation 34 Approximate Energy Requirements Using 1465 kcal/Kg Calculation Used for Recommendations Kcal/kg Additional Notes Protein Needs: 52-65g (1.2-1. 5g/kg) Fluid Needs:1 ml/kcal Nutrition Intervention Change Diet Order: Continue current Add Supplement/Snack (indicate name/kcal Ensure Clear Apple 1 daily /protein ) Provides kCal: 240 Provides Protein (gm) 8 Goal #1 Continue to meet at least 75% of calorie and protein needs via PO and ONS intakes Goal #2 Wt gain/maintenance Anticipated Discharge Needs: Cardiac diet Follow-Up By: 04/10/19 Additional Comments Follow for PO and ONS intakes
[2019-04-09] MEDS ORDERED: NACL 0.9% 1000 ML 1,000 ML IV SCH (15:00)
[2019-04-09] MEDS: PROVENTIL IH PRN (16:19)
[2019-04-09] MEDS: PROAMATINE PO SCH (16:34)
[2019-04-09] MEDS ORDERED: LASIX IV STA (19:45)
[2019-04-09] MEDS: ELIQUIS PO SCH (21:12)
[2019-04-10] MEDS: PROVENTIL IH PRN (03:46)
[2019-04-10] MEDS: SOLU-Medrol IV SCH ×3 (04:59→23:11)
[2019-04-10] MEDS: PULMICORT IH SCH ×2 (08:26→20:49)
[2019-04-10] MEDS: DUONEB *Not for PRN Use IH SCH ×3 (08:26→20:49)
[2019-04-10] MEDS: HALFPRIN EC PO SCH (09:58)
[2019-04-10] MEDS: PROAMATINE PO SCH ×3 (09:58→18:10)
[2019-04-10] MEDS: MUCINEX ER PO SCH ×2 (09:59→23:06)
[2019-04-10] MEDS: celeXA PO SCH (09:59)
[2019-04-10] MEDS: COLACE PO SCH ×2 (09:59→23:06)
[2019-04-10] MEDS: K-DUR PO SCH (09:59)
[2019-04-10] MEDS: CORDARONE PO SCH ×2 (09:59→23:06)
[2019-04-10] MEDS: SYNTHROID PO SCH (09:59)
[2019-04-10] MEDS: SODIUM BICARBONATE PO SCH ×3 (10:00→23:52)
[2019-04-10] MEDS: SODIUM CHLORIDE FLUSH SYRINGE 10 ML IV SCH ×2 (10:00→23:13)
[2019-04-10] MEDS: LOPRESSOR PO SCH ×3 (10:02→23:52)
[2019-04-10] MEDS: MEGACE PO SCH ×2 (10:07→23:06)
--- NOTE | 2019-04-10 10:12 | Progress Note ---
Assessment and Plan Acute hypoxic respiratory failure Acute Exacerbation of COPD Acute Kidney Injury possibly secondary to prerenal, ATN on underlying CKD, r/o obstruction Acute on chronic systolic CHF Essential HTN Atrial Fibrillation with RVR on Eliquis Hypothyroidism Hx of CVA Plan: -Cr cont to rise, decreased UOP -no indication for [employer] but may need to be initiated this visit, repeated CXR is pending, can be treated lasix PRN -will d/c IVF -secondary GN ordered for elevated protein to creatinine ratio in the urine -Review of labs in [facility] labs from 2016-March of 2019 showed SCr level between 0.8-1.8 -Renal US showed no hydronephrosis, shows signs of CKD -Continue bicarb tabs for acidosis -Holding lisinopril for now -Monitor blood pressures closely -Renally dose meds Lenny Hernandez MD [phone] Subjective Date of service: 04/10/19 Principal diagnosis: BUTCH Interval history: on BIPAP, follows simple commands Objective - Vital Signs Vital signs: Vital Signs - 12hr 04/09/19 04/10/19 04/10/19 23:00 00:02 00:13 Temperature Pulse Rate 108 H 80 62 Pulse Rate [ Anterior Bilateral Throughout] Respiratory 24 22 Rate Respiratory Rate [Anterior Bilateral Throughout] Blood Pressure 87/58 96/69 Blood Pressure [Left] O2 Sat by Pulse 100 98 Oximetry 04/10/19 04/10/19 04/10/19 00:14 03:48 04:43 Temperature 97.9 F Pulse Rate 59 L Pulse Rate [ 70 Anterior Bilateral Throughout] Respiratory Rate Respiratory 26 H Rate [Anterior Bilateral Throughout] Blood Pressure Blood Pressure [Left] O2 Sat by Pulse 83 L Oximetry 04/10/19 04/10/19 04/10/19 04:51 08:28 08:34 Temperature 97.4 F L Pulse Rate 78 87 Pulse Rate [ 32 L Anterior Bilateral Throughout] Respiratory 34 H 31 H Rate Respiratory 109 H Rate [Anterior Bilateral Throughout] Blood Pressure Blood Pressure 133/92 [Left] O2 Sat by Pulse 99 Oximetry 04/10/19 04/10/19 08:44 10:02 Temperature 97.5 F L Pulse Rate 93 H Pulse Rate [ Anterior Bilateral Throughout] Respiratory 24 Rate Respiratory Rate [Anterior Bilateral Throughout] Blood Pressure 133/69 133/69 Blood Pressure [Left] O2 Sat by Pulse 100 Oximetry - General Appearance General appearance: well-developed, well-nourished, appears stated age EENT: ATNC, PERRL, mucous membranes moist Neck: no JVD, no carotid bruit Respiratory: Present: Clear to Ascultation Cardiology: regular, S1S2 Gastrointestinal: normoactive bowel sounds, no tenderness, no distended Integumentary: no rash, warm and dry Neurologic: other (follows simple commands) Musculoskeletal: other (no edema in BLE) Psychiatric: other - Lab 04/07/19 04:25 04/09/19 10:49 Most recent lab results Calcium 7.9 mg/dL (8.4-10.2) L 04/09/19 10:49 Phosphorus 4.90 mg/dL (2.5-4.5) H 04/07/19 04:25 36.8 mg/dL (0.1-20.0) H 04/06/19 18:00 43 mmol/L 04/06/19 18:00 73 mg/dL (5-11.8) H 04/06/19 18:00 Medications & Allergies - Medications Allergies/Adverse Reactions: Allergies No Known Allergies Allergy (Verified 10/19/18 14:21) Home Medications: Home Medications Medication Instructions Recorded Confirmed Last Taken Type Apixaban [Eliquis] 2.5 mg PO HS 02/11/19 04/05/19 Unknown History Citalopram [Celexa] 20 mg PO QDAY 02/11/19 04/05/19 Unknown History Levothyroxine [Synthroid] 0.05 mg PO DAILY 02/11/19 04/05/19 Unknown History Lisinopril [Zestril TAB] 2.5 mg PO QDAY 02/11/19 04/05/19 Unknown History Metoprolol [Lopressor TAB] 25 mg PO BID 02/11/19 04/05/19 Unknown History Aspirin EC [Halfprin EC] 81 mg PO QDAY #30 tablet. 02/14/19 04/05/19 Unknown Rx Furosemide [Lasix TAB] 40 mg PO QDAY #30 tablet 02/14/19 04/05/19 Unknown Rx Potassium Chloride [K-Dur] 10 meq PO QDAY #30 tablet 02/14/19 04/05/19 Unknown Rx Albuterol Sulfate [Proventil Hfa] 2 puff IH Q4HR PRN #1 hfa.aer.ad 04/02/19 08/2 04/26 Unknown Rx Megestrol Acetate 400 mg PO BID 04/05/19 04/05/19 Unknown History Rosuvastatin Calcium 40 mg PO QDAY 04/05/19 04/05/19 Unknown History Tiotropium [place] [Spiriva 2.5 mcg IH DAILY 04/05/19 04/05/19 Unknown History Respimat] Active Medications: Generic Name Dose Route Start Last Admin Trade Name Freq PRN Reason Stop Dose Admin Acetaminophen 650 mg 04/05/19 19:46 Tylenol PO Q4H PRN Pain MILD(1-3)/Fever >100.5/AVZQUEZ Albuterol 2.5 mg 04/05/19 19:46 04/10/19 03:46 Proventil IH 2.5 mg Q3HRT PRN Administration Shortness Of Breath Albuterol/Ipratropium 1 ampul 04/08/19 20:00 04/10/19 08:26 Duoneb *Not For Prn Use* IH 1 ampul TIDRT ANGÉLICA Administration Amiodarone HCl 200 mg 04/07/19 10:00 04/10/19 09:59 Cordarone PO 200 mg BID ANGÉLICA Administration Apixaban 2.5 mg 04/05/19 22:00 04/09/19 21:12 Eliquis PO 2.5 mg HS ANGÉLICA Administration Protocol Aspirin 81 mg 04/06/19 10:00 04/10/19 09:58 Halfprin Ec PO 81 mg QDAY ANGÉLICA Administration Atorvastatin Calcium 40 mg 04/05/19 22:00 04/09/19 21:14 Lipitor PO 40 mg QHS ANGÉLICA Administration Benzocaine/Menthol 1 each 04/08/19 14:31 Cepacol X Strength MM Q2H PRN Sore Throat Budesonide 0.5 mg 04/05/19 20:00 04/10/19 08:26 Pulmicort IH 0.5 mg Q12HRT ANGÉLICA Administration Citalopram Hydrobromide 20 mg 04/06/19 10:00 04/10/19 09:59 Celexa PO 20 mg QDAY ANGÉLICA Administration Docusate Sodium 100 mg 04/05/19 22:00 04/10/19 09:59 Colace PO 100 mg BID ANGÉLICA Administration Guaifenesin 600 mg 04/05/19 22:00 04/10/19 09:59 Mucinex Er PO 600 mg BID ANGÉLICA Administration Hydralazine HCl 10 mg 04/05/19 21:16 Apresoline IV Q4HR PRN Blood Pressure Sodium Chloride 1,000 mls @ 50 mls/hr 04/09/19 15:00 Nacl 0.9% 1000 Ml IV 04/10/19 16:00 DIRECT ANGÉLICA Levothyroxine Sodium 50 mcg 04/06/19 10:00 04/10/19 09:59 Synthroid PO 50 mcg DAILY ANGÉLICA Administration Megestrol Acetate 400 mg 04/05/19 22:00 04/10/19 10:07 Megace PO 400 mg BID ANGÉLICA Administration Methylprednisolone Sodium Succinate 60 mg 04/05/19 22:00 04/10/19 04:59 Solu-Medrol IV 60 mg Q8HR ANGÉLICA Administration Metoprolol Tartrate 25 mg 04/05/19 22:00 04/10/19 10:02 Lopressor PO 25 mg BID ANGÉLICA Administration Midodrine 10 mg 04/09/19 16:00 04/10/19 09:58 Proamatine PO 10 mg TID@0800,1200,1600 ANGÉLICA Administration Ondansetron HCl 4 mg 04/05/19 19:46 04/08/19 06:02 Zofran IV 4 mg Q8H PRN Administration Nausea And Vomiting Potassium Chloride 10 meq 04/06/19 10:00 04/10/19 09:59 K-Dur PO 10 meq QDAY ANGÉLICA Administration Sodium Bicarbonate 650 mg 04/08/19 20:00 04/10/19 10:00 Sodium Bicarbonate PO 650 mg TID ANGÉLICA Administration Sodium Chloride 10 ml 04/05/19 22:00 04/10/19 10:00 Sodium Chloride Flush Syringe 10 Ml IV 10 ml BID ANGÉLICA Administration Sodium Chloride 10 ml 04/05/19 19:46 04/06/19 06:07 Sodium Chloride Flush Syringe 10 Ml IV 10 ml PRN PRN Administration LINE FLUSH
--- NOTE | 2019-04-10 10:46 | Discharge Summary ---
Providers - Providers Date of Admission: 04/05/19 19:09 Attending physician: SEVERINO PORTILLO MD 04/05/19 19:46 Consult to Physician [CONS] Routine Comment: Consulting Provider: JOHAN ALVAREZ Physician Instructions: Reason For Exam: AE CHF, A-fib RVR 04/05/19 20:32 Consult to Physician [CONS] Routine Comment: Consulting Provider: MUNIR MAN Physician Instructions: Reason For Exam: David ?? CKD 04/10/19 09:22 Consult to Physician [CONS] Routine Comment: Consulting Provider: DAKOTAH PAVON Physician Instructions: Reason For Exam: respiratory failure [facility] Condition: Stable Hospital course: Patient is a 63-year-old female who is a former smoker with history of HTN, COPD, CHF, A. fib with RVR , CVA, nonischemic dilated cardiomyopathy, hypothyroidism who presents to [facility] ED with complaints of difficulty breathing and for the past 2 days. Of note pt was seen in ED on three days ago (04/02) with similar complaints. She was treat with nebulizer tx and IV steriods with improvement in symptoms. She was discharge on nebulizer tx, oral prednisone, and Tessalon Perles. One day later her symptoms began to worsened. She continued with nebs and oral steriods with no relief. Upon arrival to ED she was noted to be hypoxic and placed on BiPaP. Also complains of cough with occasional sputum production. * Echo: report reviewed (10/2018 showed EF 20-25%, septal wall hypertrophy, impaired relaxation, LA mildly dilated, RV systolic function mildly reduced, trivial pericardial effusion.) * Cardiac cath 07/2017 showed mildly dilated LV, EF 40-45%, minimal coronary irregularities * EKG: report reviewed, image reviewed: Atrial Fibrillation Acute exacerbation of COPD -Scheduled DuoNebs and Pulmicort, Albuterol prn -Systemic steriods -Mucinex Acute Hypoxic Respiratory Failure -No baseline oxygen requirements -hypoxic on RA -Currently off BiPAP -ABG 7.389/32.7/313/19.7 (done on 55% FiO2) -Monitor saturations wean as tolerate Acute on chronic systolic heart failure -Initiate CHF protocol -CXR showed: Worsened CHF with mild perihilar [place] [address] -EF 20-25% on Echo (10/2018) -Diurese with IV diuretics -Cardiology consulted Acute kidney injury, vasomotor nephropathy -Cr 1.9 with GFR 26 on this admission -Baseline Cr 1.1 - 1.2 (01/2019) -Gentle hyrdration with IVF -Avoid nephrotoxic agents -Renal dose all meds -Nephrology consulted Atrial fibrillation with RVR -On anticoagulation with Eliquis -Continuous telemetry monitoring start Amiodarone per Cardiology Hypertension -Continue to monitor BP -Hold JUAN -Resume home antihypertensive meds -IV hydralazine when necessary DVT PPX -on Eliquis -SCD's disposition; continue inpatient care, once renal function stabilizes, CR up to 3.7 now. Also pt was initially 84% with mild exertion on o2 and came up to 94% at rest, so patient will most likely need home O2 History Interval history: Patient was seen and examined. Follow-up on current diagnosis of AE COPD. No Overnight events reported to me. Patient denies any chest pain, nausea/vomiting or severe headaches. Imaging, nursing note, chart, labs and old chart reviewed. Discussed with patient. Hospitalist Physical - Physical exam Narrative exam: Gen: cachetic bmi 17.4, chronically ill appearing, on 4liters O2 (new to O2), bipap on standby at bedside, nad a/o x 3 HEENT: NCAT, EOMI, PERRL, OP Clear Neck: supple, no adenopathy, no thyromegaly, no JVD CVS/Heart: irregular irregular, normal S1S2, pulses present bilaterally Chest/Lungs: diminished bs bilateral, Symmetrical chest expansion, good air entry bilaterally GI/Abdomen: soft, NTND, good bowel sounds, no guarding or rebound /Bladder: no suprapubic tenderness, no CVA or paraspinal tenderness Extermity/Skin: trace ble MSK: FROM x 4 Neuro: CN 2-12 grossly intact, no new focal deficits Psych: calm Exam - Constitutional Vitals: Temp Pulse Resp BP Pulse Ox 97.5 F L 93 H 24 133/69 100 04/10/19 08:44 04/10/19 10:02 04/10/19 08:44 04/10/19 10:02 04/10/19 08:44 Plan Follow up with: JAMAL KELLER MD [Primary Care Provider] - 7 Days
--- NOTE | 2019-04-10 10:53 | Progress Note ---
Assessment and Plan Assessment and plan: Patient is a 63-year-old female who is a former smoker with history of HTN, COPD, CHF, A. fib with RVR , CVA, nonischemic dilated cardiomyopathy, hypothyroidism who presents to [facility] ED with complaints of difficulty breathing and for the past 2 days. Of note pt was seen in ED on three days ago (04/02) with similar complaints. She was treat with nebulizer tx and IV steriods with improvement in symptoms. She was discharge on nebulizer tx, oral prednisone, and Tessalon Perles. One day later her symptoms began to worsened. She continued with nebs and oral steriods with no relief. Upon arrival to ED she was noted to be hypoxic and placed on BiPaP. Also complains of cough with occasional sputum production. * Echo: report reviewed (10/2018 showed EF 20-25%, septal wall hypertrophy, impaired relaxation, LA mildly dilated, RV systolic function mildly reduced, trivial pericardial effusion.) * Cardiac cath 07/2017 showed mildly dilated LV, EF 40-45%, minimal coronary irregularities * EKG: report reviewed, image reviewed: Atrial Fibrillation * Patient still acutely short of breath with increased work of breathing- Transfer order placed to [facility], pulmonary consult placed Acute exacerbation of COPD -Scheduled DuoNebs and Pulmicort, Albuterol prn -Systemic steriods -Pulmonary consulted -Mucinex Acute Hypoxic Respiratory Failure -No baseline oxygen requirements -hypoxic on RA -Currently off BiPAP -ABG 7.389/32.7/313/19.7 (done on 55% FiO2) -Monitor saturations wean as tolerate Acute on chronic systolic heart failure -Initiate CHF protocol -CXR showed: Worsened CHF with mild perihilar interstitial [place] [address] -EF 20-25% on Echo (10/2018) -Diurese with IV diuretics -Cardiology consulted, Discussed with Cardiology team, agree to move patient to [facility] Acute kidney injury, vasomotor nephropathy -Cr NOW 3.7 with GFR 26 on this admission -Baseline Cr 1.1 - 1.2 (01/2019) -Discussed with Gauge Maker, Patient may need Dialysis, ok for diuresis but patient appears dry -Avoid nephrotoxic agents -Renal dose all meds -Nephrology consulted Atrial fibrillation with RVR -On anticoagulation with Eliquis -Continuous telemetry monitoring start Amiodarone per Cardiology Hypertension -Continue to monitor BP -Hold JUAN -Resume home antihypertensive meds -IV hydralazine when necessary DVT PPX -on Eliquis -SCD's Discussed with Audrey on the phone about need to move patient to the IMCU No new lab work noted today, Will order for AM The high probability of a clinically significant, sudden or life threatening deterioration of the [Pulmonary] system(s) required my full and direct attenti on, intervention and personal management. The aggregate critical care time was [35] minutes. This time is in addition to time spent performing reported procedures but includes the following: [x] Data Review and interpretation [x] Patient assessment and monitoring of vital signs [x] Documentation [x] Medication orders and management History Interval history: Patient was seen and examined, noted in tripod positioning, still on Bipap, no nausea, vomiting, no abdominal pain on initial exam Hospitalist Physical - Physical exam Narrative exam: Gen: Cachetic bmi 19.4, chronically ill appearing, Bipap, Moderate distress HEENT: NCAT, EOMI, PERRL, OP Clear Neck: supple, no adenopathy, no thyromegaly, no JVD CVS/Heart: irregular irregular, normal S1S2, pulses present bilaterally Chest/Lungs: diminished bs bilateral, Symmetrical chest expansion, Increased work of breathing GI/Abdomen: soft, NTND, +bowel sounds, no guarding or rebound /Bladder: no suprapubic tenderness, no CVA or paraspinal tenderness Extermity/Skin: trace ble MSK: FROM x 4 Neuro: CN 2-12 grossly intact, no new focal deficits Psych: Anxious - Constitutional Vitals: Temp Pulse Resp BP Pulse Ox 97.5 F L 93 H 24 133/69 100 04/10/19 08:44 04/10/19 10:02 04/10/19 08:44 04/10/19 10:02 04/10/19 08:44 General appearance: Present: no acute distress. Absent: mild distress Results - Labs CBC & Chem 7: 04/10/19 Unknown 04/10/19 23:23 Labs: Laboratory Last Values WBC 6.6 K/mm3 (4.5-11.0) 04/07/19 04:25 RBC 4.12 M/mm3 (3.65-5.03) 04/07/19 04:25 Hgb 12.8 gm/dl (10.1-14.3) 04/07/19 04:25 Hct 38.4 % (30.3-42.9) 04/07/19 04:25 MCV 93 fl (79-97) 04/07/19 04:25 MCH 31 pg (28-32) 04/07/19 04:25 MCHC 33 % (30-34) 04/07/19 04:25 RDW 15.4 % (13.2-15.2) H 04/07/19 04:25 Plt Count 103 K/mm3 (140-440) L 04/07/19 04:25 Lymph % (Auto) 33.6 % (13.4-35.0) 04/05/19 16:01 [place] % (Auto) 2.0 % (0.0-7.3) 04/06/19 05:36 Eos % (Auto) 0.0 % (0.0-4.3) 04/06/19 05:36 Baso % (Auto) 0.2 % (0.0-1.8) 04/05/19 16:01 Lymph # 1.9 K/mm3 (1.2-5.4) 04/05/19 16:01 [place] # 0.0 K/mm3 (0.0-0.8) 04/06/19 05:36 Eos # 0.0 K/mm3 (0.0-0.4) 04/06/19 05:36 Baso # 0.0 K/mm3 (0.0-0.1) 04/06/19 05:36 Add Manual Diff Complete 04/06/19 05:36 Total Counted 100 04/06/19 05:36 Seg Neutrophils % 71.9 % (40.0-70.0) H 04/06/19 05:36 Seg Neuts % (Manual) 76.0 % (40.0-70.0) H 04/06/19 05:36 0 % 04/06/19 05:36 22.0 % (13.4-35.0) 04/06/19 05:36 Reactive Lymphs % (Man) 0 % 04/06/19 05:36 2.0 % (0.0-7.3) 04/06/19 05:36 0 % (0.0-4.3) 04/06/19 05:36 0 % (0.0-1.8) 04/06/19 05:36 0 % 04/06/19 05:36 0 % 04/06/19 05:36 0 % 04/06/19 05:36 0 % 04/06/19 05:36 Nucleated RBC % Not Reportable 04/06/19 05:36 Seg Neutrophils # 1.6 K/mm3 (1.8-7.7) L 04/06/19 05:36 Seg Neutrophils # Man 1.7 K/mm3 (1.8-7.7) L 04/06/19 05:36 Band Neutrophils # 0.0 K/mm3 04/06/19 05:36 0.5 K/mm3 (1.2-5.4) L 04/06/19 05:36 Abs React Lymphs (Man) 0.0 K/mm3 04/06/19 05:36 0.0 K/mm3 (0.0-0.8) 04/06/19 05:36 0.0 K/mm3 (0.0-0.4) 04/06/19 05:36 0.0 K/mm3 (0.0-0.1) 04/06/19 05:36 0.0 K/mm3 04/06/19 05:36 0.0 K/mm3 04/06/19 05:36 0.0 K/mm3 04/06/19 05:36 Blast Cells # 0.0 K/mm3 04/06/19 05:36 WBC Morphology Not Reportable 04/06/19 05:36 Hypersegmented Neuts Not Reportable 04/06/19 05:36 Hyposegmented Neuts Not Reportable 04/06/19 05:36 Hypogranular Neuts Not Reportable 04/06/19 05:36 Not Reportable 04/06/19 05:36 Not Reportable 04/06/19 05:36 Not Reportable 04/06/19 05:36 Not Reportable 04/06/19 05:36 Not Reportable 04/06/19 05:36 Not Reportable 04/06/19 05:36 Cons 04/06/19 05:36 Not Reportable 04/06/19 05:36 Plt Clumps, EDTA Not Reportable 04/06/19 05:36 Rare 04/06/19 05:36 Not Reportable 04/06/19 05:36 Not Reportable 04/06/19 05:36 Plt Morphology Comment Not Reportable 04/06/19 05:36 RBC Morphology Not Reportable 04/06/19 05:36 Dimorphic RBCs Not Reportable 04/06/19 05:36 Not Reportable 04/06/19 05:36 Not Reportable 04/06/19 05:36 Not Reportable 04/06/19 05:36 Not Reportable 04/06/19 05:36 Not Reportable 04/06/19 05:36 Not Reportable 04/06/19 05:36 Not Reportable 04/06/19 05:36 Not Reportable 04/06/19 05:36 Not Reportable 04/06/19 05:36 Not Reportable 04/06/19 05:36 Not Reportable 04/06/19 05:36 Not Reportable 04/06/19 05:36 Not Reportable 04/06/19 05:36 Not Reportable 04/06/19 05:36 Not Reportable 04/06/19 05:36 Not Reportable 04/06/19 05:36 Not Reportable 04/06/19 05:36 Not Reportable 04/06/19 05:36 Not Reportable 04/06/19 05:36 Acanthocytes (Spur) Not Reportable 04/06/19 05:36 Rouleaux Not Reportable 04/06/19 05:36 Not Reportable 04/06/19 05:36 Not Reportable 04/06/19 05:36 Not Reportable 04/06/19 05:36 Not Reportable 04/06/19 05:36 Hem Pathologist Commnt No 04/06/19 05:36 PT 17.2 Sec. (12.2-14.9) H 04/05/19 Unknown INR 1.44 (0.87-1.13) H 04/05/19 Unknown APTT 24.7 Sec. (24.2-36.6) 04/05/19 Unknown POC ABG pH 7.289 (7.35-7.45) L 04/10/19 09:21 POC ABG pCO2 32.7 (35-45) L 04/05/19 16:41 POC ABG pO2 326 (80-105) H 04/10/19 09:21 POC ABG HCO3 13.3 (22-26 mml/L) 04/10/19 09:21 POC ABG Total CO2 14 (23-27mmol/L) 04/10/19 09:21 POC ABG O2 Sat 100 04/10/19 09:21 POC ABG Base Excess -13 ((-2) - (+3)mmol/L) 04/10/19 09:21 100 % 04/10/19 09:21 Sodium 137 mmol/L (137-145) 04/09/19 10:49 Potassium 4.4 mmol/L (3.6-5.0) 04/09/19 10:49 Chloride 94.2 mmol/L (98-107) L 04/09/19 10:49 Carbon Dioxide 19 mmol/L (22-30) L 04/09/19 10:49 28 mmol/L 04/09/19 10:49 BUN 98 mg/dL (7-17) H 04/09/19 10:49 3.7 mg/dL (0.7-1.2) H 04/09/19 10:49 Estimated GFR 12 ml/min 04/09/19 10:49 26 % 04/09/19 10:49 Glucose 216 mg/dL (65-100) H 04/09/19 10:49 Calcium 7.9 mg/dL (8.4-10.2) L 04/09/19 10:49 Phosphorus 4.90 mg/dL (2.5-4.5) H 04/07/19 04:25 0.80 mg/dL (0.1-1.2) 04/07/19 04:25 AST 55 units/L (5-40) H 04/07/19 04:25 ALT 80 units/L (7-56) H 04/07/19 04:25 123 units/L (35-129) 04/07/19 04:25 0.013 ng/mL (0.00-0.029) 04/05/19 16:01 NT-Pro-B Natriuret Pep > 18731 pg/mL (0-900) H 04/05/19 16:01 6.3 g/dL (6.3-8.2) 04/07/19 04:25 3.7 g/dL (3.9-5) L 04/07/19 04:25 1.4 % 04/07/19 04:25 PTH Intact 197.4 pg/mL (15-65) H 04/07/19 04:25 1.0 /HPF (0.0-6.0) 04/06/19 18:00 2.0 /HPF (0.0-6.0) 04/06/19 18:00 U Epithel Cells (Auto) 1.0 /HPF (0-13.0) 04/06/19 18:00 1+ /HPF (Negative) 04/06/19 18:00 Few /HPF 04/06/19 18:00 Few /HPF 04/06/19 18:00 36.8 mg/dL (0.1-20.0) H 04/06/19 18:00 31.8 mg/dL (0.1-34.0) 04/06/19 18:00 Microalb/Creat Ratio 864.1 ug/mg 04/06/19 18:00 Protein/Creatinin Ratio 1.98 04/06/19 18:00 43 mmol/L 04/06/19 18:00 47.6 mmolL (110-250) L 04/06/19 18:00 73 mg/dL (5-11.8) H 04/06/19 18:00 Active Medications - Current Medications Current Medications: Generic Name Dose Route Start Last Admin Trade Name Freq PRN Reason Stop Dose Admin Acetaminophen 650 mg 04/05/19 19:46 Tylenol PO Q4H PRN Pain MILD(1-3)/Fever >100.5/VAZQUEZ Albuterol 2.5 mg 04/05/19 19:46 04/10/19 03:46 Proventil IH 2.5 mg Q3HRT PRN Administration Shortness Of Breath Albuterol/Ipratropium 1 ampul 04/08/19 20:00 04/10/19 08:26 Duoneb *Not For Prn Use* IH 1 ampul TIDRT ANGÉLICA Administration Amiodarone HCl 200 mg 04/07/19 10:00 04/10/19 09:59 Cordarone PO 200 mg BID ANGÉLICA Administration Apixaban 2.5 mg 04/05/19 22:00 04/09/19 21:12 Eliquis PO 2.5 mg HS ANGÉLICA Administration Protocol Aspirin 81 mg 04/06/19 10:00 04/10/19 09:58 Halfprin Ec PO 81 mg QDAY ANGÉLICA Administration Atorvastatin Calcium 40 mg 04/05/19 22:00 04/09/19 21:14 Lipitor PO 40 mg QHS ANGÉLICA Administration Benzocaine/Menthol 1 each 04/08/19 14:31 Cepacol X Strength MM Q2H PRN Sore Throat Budesonide 0.5 mg 04/05/19 20:00 04/10/19 08:26 Pulmicort IH 0.5 mg Q12HRT ANGÉLICA Administration Citalopram Hydrobromide 20 mg 04/06/19 10:00 04/10/19 09:59 Celexa PO 20 mg QDAY ANGÉLICA Administration Docusate Sodium 100 mg 04/05/19 22:00 04/10/19 09:59 Colace PO 100 mg BID ANGÉLICA Administration Guaifenesin 600 mg 04/05/19 22:00 04/10/19 09:59 Mucinex Er PO 600 mg BID ANGÉLICA Administration Hydralazine HCl 10 mg 04/05/19 21:16 Apresoline IV Q4HR PRN Blood Pressure Sodium Chloride 1,000 mls @ 50 mls/hr 04/09/19 15:00 Nacl 0.9% 1000 Ml IV 04/10/19 16:00 DIRECT ANGÉLICA Levothyroxine Sodium 50 mcg 04/06/19 10:00 04/10/19 09:59 Synthroid PO 50 mcg DAILY ANGÉLICA Administration Megestrol Acetate 400 mg 04/05/19 22:00 04/10/19 10:07 Megace PO 400 mg BID ANGÉLICA Administration Methylprednisolone Sodium Succinate 60 mg 04/05/19 22:00 04/10/19 04:59 Solu-Medrol IV 60 mg Q8HR ANGÉLICA Administration Metoprolol Tartrate 25 mg 04/05/19 22:00 04/10/19 10:02 Lopressor PO 25 mg BID ANGÉLICA Administration Midodrine 10 mg 04/09/19 16:00 04/10/19 09:58 Proamatine PO 10 mg TID@0800,1200,1600 ANGÉLICA Administration Ondansetron HCl 4 mg 04/05/19 19:46 04/08/19 06:02 Zofran IV 4 mg Q8H PRN Administration Nausea And Vomiting Potassium Chloride 10 meq 04/06/19 10:00 04/10/19 09:59 K-Dur PO 10 meq QDAY ANGÉLICA Administration Sodium Bicarbonate 650 mg 04/08/19 20:00 04/10/19 10:00 Sodium Bicarbonate PO 650 mg TID ANGÉLICA Administration Sodium Chloride 10 ml 04/05/19 22:00 04/10/19 10:00 Sodium Chloride Flush Syringe 10 Ml IV 10 ml BID ANGÉLICA Administration Sodium Chloride 10 ml 04/05/19 19:46 04/06/19 06:07 Sodium Chloride Flush Syringe 10 Ml IV 10 ml PRN PRN Administration LINE FLUSH Nutrition/Malnutrition Assess - Dietary Evaluation Nutrition/Malnutrition Findings: Nutrition Notes Start: 04/06/19 16:00 Freq: Status: Active Protocol: Document 04/06/19 16:00 RM (Rec: 04/06/19 16:09 RM [email or web address]) Nutrition Notes 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 No PEG or retail center receptionist of TPN in record. 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 Pt stated that her appetite is good now and that she eats most of her meals. Stated UBW was 95 lbs last week. Percent of energy/protein needs met: 100%/100% Burn Absent Trauma Absent #1 Nutrition Diagnosis Underweight Etiology decreased appetite, COPD As Evidenced by Signs and Symptoms BMI 17.4 Is patient on ventilator? No Is Patient Ambulatory and/or Out of Bed Yes REE-([facility]-ambulatory/OOB) [ 1155.908 [id number]] Kcal/Kg value to use for calculation 34 Approximate Energy Requirements Using 1465 kcal/Kg Calculation Used for Recommendations Kcal/kg Additional Notes Protein Needs: 52-65g (1.2-1. 5g/kg) Fluid Needs:1 ml/kcal Nutrition Intervention Change Diet Order: Continue current Add Supplement/Snack (indicate name/kcal Ensure Clear Apple 1 daily /protein ) Provides kCal: 240 Provides Protein (gm) 8 Goal #1 Continue to meet at least 75% of calorie and protein needs via PO and ONS intakes Goal #2 Wt gain/maintenance Anticipated Discharge Needs: Cardiac diet Follow-Up By: 04/10/19 Additional Comments Follow for PO and ONS intakes
--- NOTE | 2019-04-10 11:06 | Progress Note ---
Assessment and Plan Pt noted to be lethargic, on BiPAP, acidosis noted on ABGs. She is pending tx to CCU for respiratory failure. F/u CXR. She is noted to be in AFib/AFlutter with HR 100s - 115s. Cont PO amio and increase lopressor as BPs permit. Pt has h/o digoxin toxicity in setting of renal insufficiency. Continue low dose Eliquis. Agree with holding ACEI/ARB in setting of renal insufficiency. Overall guarded prognosis. The patient has been seen in conjunction with Dr. Nielsen who agrees with the assessment and plan of care. - Patient Problems (1) Permanent atrial fibrillation with RVR Current Visit: Yes Status: Acute (2) COPD exacerbation Current Visit: Yes Status: Acute (3) Acute respiratory failure Current Visit: Yes Status: Acute Qualifiers: Respiratory failure complication: hypoxia Qualified Code(s): J96.01 - Acute respiratory failure with hypoxia (4) Acute HFrEF (heart failure with reduced ejection fraction) Current Visit: Yes Status: Acute (5) Nonischemic dilated cardiomyopathy Current Visit: Yes Status: Chronic (6) Acute renal failure Current Visit: Yes Status: Acute (7) HTN (hypertension) Current Visit: Yes Status: Chronic Qualifiers: Hypertension type: essential hypertension Qualified Code(s): I10 - Essential (primary) hypertension (8) History of CVA (cerebrovascular accident) Current Visit: Yes Status: Chronic (9) Tobacco use Current Visit: Yes Status: Chronic Subjective Date of service: 04/10/19 Principal diagnosis: BUTCH Interval history: pt resting in bed, lethargic, on BiPAP, ABGs with acidosis this AM. tele reviewed - in AFib/AFlutter with HR 100s - 115s. Objective Last Vital Signs Temp 97.5 F L 04/10/19 08:44 Pulse 93 H 04/10/19 10:02 Resp 24 04/10/19 08:44 BP 133/69 04/10/19 10:02 Pulse Ox 100 04/10/19 08:44 - Physical Examination General: Other (lethargic, on bipap) HEENT: Positive: PERRL, Normocephaly, Mucus Membranes Moist Neck: Positive: neck supple, trachea midline Cardiac: Positive: irregularly irregular, S1/S2, Tachycardia Lungs: Positive: Decreased Breath Sounds, Oxygen Neuro: Positive: Other (lethargic, on bipap) Abdomen: Negative: Tender Skin: Positive: Clear. Negative: Rash Musculoskeletal: No Pain Extremities: Present: normal. Absent: edema - Labs and Meds Comprehensive Metabolic Panel 04/09/19 Range/Units 10:49 Sodium 137 (137-145) mmol/L Potassium 4.4 (3.6-5.0) mmol/L Chloride 94.2 L (98-107) mmol/L Carbon Dioxide 19 L (22-30) mmol/L BUN 98 H (7-17) mg/dL Creatinine 3.7 H (0.7-1.2) mg/dL Glucose 216 H (65-100) mg/dL Calcium 7.9 L (8.4-10.2) mg/dL - Imaging and Cardiology EKG: report reviewed, image reviewed Echo: report reviewed (10/2018 showed EF 20-25%, septal wall hypertrophy, impaired relaxation, LA mildly dilated, RV systolic function mildly reduced, trivial pericardial effusion.) Cardiac cath: report reviewed ( 07/2017 showed mildly dilated LV, EF 40-45%, minimal coronary irregularities. ) - Telemetry EKG Rhythm: Atrial Fibrillation
[2019-04-10] MEDS ORDERED: LOPRESSOR PO SCH (14:00)
--- NOTE | 2019-04-10 17:48 | Consultation ---
History of Present Illness Consult date: 04/10/19 Reason for consult: dyspnea, cough, COPD History of present illness: PULMONARY AND CRITICAL CARE CONSULTATION Dr. Vasquez thank you for asking us to participate in the care of this patient. 63-year-old female who is a former smoker with history of HTN, COPD, CHF, A. fib with RVR , CVA, nonischemic dilated cardiomyopathy, hypothyroidism who presents to [facility] ED with complaints of difficulty breathing and for the past 2 days. Of note pt was seen in ED on three days ago (04/02) with similar complaints. She was treat with nebulizer tx and IV steriods with improvement in symptoms. She was discharge on nebulizer tx, oral prednisone, and Tessalon Perles. One day later her symptoms began to worsened. She continued with nebs and oral steriods with no relief. Upon arrival to ED she was noted to be hypoxic and placed on BiPaP. Also complains of cough with occasional sputum production. Denies: n/v/d, dizziness, fever, headache, CP, recent tobacco use, or recent sick contact Patient presently resting on BIPAP 20/8, rate 30, FiO2 50%. Patient arterial blood gases reported pH 7.29, pO2 326, HCO3- 13.3, O2 sat 100% on 100% FiO2. PCO2 not reported. Decrease FiO2 to 40% and repeat blood gases in AM. CXR reported Mild interstitial pulmonary edema unchanged from 04/05/2019. A small right pleural effusion has developed Past History Past Medical History: atrial fib (with RVR on Eliquis), COPD, heart failure (EF 20-25%), hypertension, stroke, other (hypothyroidism, non ischemic dilated cardiomyopathy) Past Surgical History: Other (breast sx) Social history: other (former smoker) Medications and Allergies Allergies Allergy/AdvReac Type Severity Reaction Status Date / Time No Known Allergies Allergy Verified 10/19/18 14:21 Home Medications Medication Instructions Recorded Confirmed Last Taken Type Apixaban [Eliquis] 2.5 mg PO HS 02/11/19 04/05/19 Unknown History Citalopram [Celexa] 20 mg PO QDAY 02/11/19 04/05/19 Unknown History Levothyroxine [Synthroid] 0.05 mg PO DAILY 02/11/19 04/05/19 Unknown History Lisinopril [Zestril TAB] 2.5 mg PO QDAY 02/11/19 04/05/19 Unknown History Metoprolol [Lopressor TAB] 25 mg PO BID 02/11/19 04/05/19 Unknown History Aspirin EC [Halfprin EC] 81 mg PO QDAY #30 tablet. 02/14/19 04/05/19 Unknown Rx Furosemide [Lasix TAB] 40 mg PO QDAY #30 tablet 02/14/19 04/05/19 Unknown Rx Potassium Chloride [K-Dur] 10 meq PO QDAY #30 tablet 02/14/19 04/05/19 Unknown Rx Albuterol Sulfate [Proventil Hfa] 2 puff IH Q4HR PRN #1 hfa.aer.ad 04/02/19 04/05/19 Unknown Rx Megestrol Acetate 400 mg PO BID 04/05/19 04/05/19 Unknown History Rosuvastatin Calcium 40 mg PO QDAY 04/05/19 04/05/19 Unknown History Tiotropium [place] [Spiriva 2.5 mcg IH DAILY 04/05/19 04/05/19 Unknown History Respimat] Active Meds: Active Medications Acetaminophen (Tylenol) 650 mg PO Q4H PRN PRN Reason: Pain MILD(1-3)/Fever >100.5/VAZQUEZ Last Admin: 04/10/19 16:05 Dose: 650 mg Documented by: Albuterol (Proventil) 2.5 mg IH Q3HRT PRN PRN Reason: Shortness Of Breath Last Admin: 04/10/19 03:46 Dose: 2.5 mg Documented by: Albuterol/Ipratropium (Duoneb *Not For Prn Use*) 1 ampul IH TIDRT [facility] Last Admin: 04/10/19 14:01 Dose: 1 ampul Documented by: Amiodarone HCl (Cordarone) 200 mg PO BID [facility] Last Admin: 04/10/19 09:59 Dose: 200 mg Documented by: Apixaban (Eliquis) 2.5 mg PO HS [facility]; Protocol Last Admin: 04/09/19 21:12 Dose: 2.5 mg Documented by: Aspirin (Halfprin Ec) 81 mg PO QDAY [facility] Last Admin: 04/10/19 09:58 Dose: 81 mg Documented by: Atorvastatin Calcium (Lipitor) 40 mg PO QHS [facility] Last Admin: 04/09/19 21:14 Dose: 40 mg Documented by: Benzocaine/Menthol (Cepacol X Strength) 1 each MM Q2H PRN PRN Reason: Sore Throat Budesonide (Pulmicort) 0.5 mg IH Q12HRT [facility] Last Admin: 04/10/19 08:26 Dose: 0.5 mg Documented by: Citalopram Hydrobromide (Celexa) 20 mg PO QDAY [facility] Last Admin: 04/10/19 09:59 Dose: 20 mg Documented by: Docusate Sodium (Colace) 100 mg PO BID [facility] Last Admin: 04/10/19 09:59 Dose: 100 mg Documented by: Guaifenesin (Mucinex Er) 600 mg PO BID [facility] Last Admin: 04/10/19 09:59 Dose: 600 mg Documented by: Hydralazine HCl (Apresoline) 10 mg IV Q4HR PRN PRN Reason: Blood Pressure Levothyroxine Sodium (Synthroid) 50 mcg PO DAILY [facility] Last Admin: 04/10/19 09:59 Dose: 50 mcg Documented by: Megestrol Acetate (Megace) 400 mg PO BID [facility] Last Admin: 04/10/19 10:07 Dose: 400 mg Documented by: Methylprednisolone Sodium Succinate (Solu-Medrol) 60 mg IV Q8HR [facility] Last Admin: 04/10/19 14:45 Dose: 60 mg Documented by: Metoprolol Tartrate (Lopressor) 25 mg PO TID [facility] Last Admin: 04/10/19 14:56 Dose: Not Given Documented by: Midodrine (Proamatine) 10 mg PO TID@0800,1200,1600 [facility] Last Admin: 04/10/19 14:44 Dose: 10 mg Documented by: Ondansetron HCl (Zofran) 4 mg IV Q8H PRN PRN Reason: Nausea And Vomiting Last Admin: 04/08/19 06:02 Dose: 4 mg Documented by: Potassium Chloride (K-Dur) 10 meq PO QDAY [facility] Last Admin: 04/10/19 09:59 Dose: 10 meq Documented by: Sodium Bicarbonate (Sodium Bicarbonate) 650 mg PO TID [facility] Last Admin: 04/10/19 14:44 Dose: 650 mg Documented by: Sodium Chloride (Sodium Chloride Flush Syringe 10 Ml) 10 ml IV BID [facility] Last Admin: 04/10/19 10:00 Dose: 10 ml Documented by: Sodium Chloride (Sodium Chloride Flush Syringe 10 Ml) 10 ml IV PRN PRN PRN Reason: LINE FLUSH Last Admin: 04/06/19 06:07 Dose: 10 ml Documented by: Review of Systems All systems: negative Physical Examination Vital signs: Vital Signs Pulse Resp 110 H 24 04/05/19 15:56 04/05/19 15:56 General appearance: no acute distress, other (resting on BIPAP, somewhat sleepy) Eyes: non-icteric ENT: oropharynx moist Neck: supple Effort: mildly labored Ascultation: Bilateral: diminished breath sounds, other (prolonged expiratory phase) Cardiovascular: regular rate and rhythm Gastrointestinal: normoactive bowel sounds, soft Integumentary: normal Extremities: no cyanosis, no edema Musculoskeletal: no deformities Gait: other (presently resting in the bed) non-focal exam, pupils equal and round other (patient is sleepy) Results - Laboratory Findings CBC and BMP: 04/07/19 04:25 04/09/19 10:49 ABG POC ABG pH 7.289 (7.35-7.45) L 04/10/19 09:21 POC ABG pO2 326 (80-105) H 04/10/19 09:21 POC ABG HCO3 13.3 (22-26 mml/L) 04/10/19 09:21 POC ABG Total CO2 14 (23-27mmol/L) 04/10/19 09:21 POC ABG O2 Sat 100 04/10/19 09:21 PT/INR, D-dimer PT 17.2 Sec. (12.2-14.9) H 04/05/19 Unknown INR 1.44 (0.87-1.13) H 04/05/19 Unknown Abnormal lab findings: Abnormal Labs 04/05/19 04/05/19 04/05/19 16:01 16:01 16:41 WBC RDW Plt Count 100 L [place] % (Auto) 8.6 H Seg Neutrophils % Seg Neuts % (Manual) Seg Neutrophils # Seg Neutrophils # Man Lymphocytes # (Manual) PT INR POC ABG pH POC ABG pCO2 32.7 L POC ABG pO2 313 H Chloride Carbon Dioxide 20 L BUN 49 H Creatinine 1.9 H Glucose 139 H Calcium Phosphorus AST 76 H ALT 67 H NT-Pro-B Natriuret Pep > 56668 H Albumin 3.7 L PTH Intact Urine Creatinine Urine Chloride Urine Total Protein 04/05/19 04/06/19 04/06/19 Unknown 05:36 05:36 WBC 2.2 L RDW Plt Count 91 L [place] % (Auto) Seg Neutrophils % 71.9 H Seg Neuts % (Manual) 76.0 H Seg Neutrophils # 1.6 L Seg Neutrophils # Man 1.7 L Lymphocytes # (Manual) 0.5 L PT 17.2 H INR 1.44 H POC ABG pH POC ABG pCO2 POC ABG pO2 Chloride Carbon Dioxide 20 L BUN 53 H Creatinine 1.8 H Glucose 185 H Calcium Phosphorus AST ALT NT-Pro-B Natriuret Pep Albumin PTH Intact Urine Creatinine Urine Chloride Urine Total Protein 04/06/19 04/07/19 04/07/19 18:00 04:25 04:25 WBC RDW 15.4 H Plt Count 103 L [place] % (Auto) Seg Neutrophils % Seg Neuts % (Manual) Seg Neutrophils # Seg Neutrophils # Man Lymphocytes # (Manual) PT INR POC ABG pH POC ABG pCO2 POC ABG pO2 Chloride Carbon Dioxide 16 L BUN 64 H Creatinine 2.2 H Glucose 226 H Calcium 8.3 L Phosphorus 4.90 H AST ALT NT-Pro-B Natriuret Pep Albumin PTH Intact Urine Creatinine 36.8 H Urine Chloride 47.6 L Urine Total Protein 73 H 04/07/19 04/07/19 04/08/19 04:25 04:25 11:17 WBC RDW Plt Count [place] % (Auto) Seg Neutrophils % Seg Neuts % (Manual) Seg Neutrophils # Seg Neutrophils # Man Lymphocytes # (Manual) PT INR POC ABG pH POC ABG pCO2 POC ABG pO2 Chloride Carbon Dioxide 16 L 15 L BUN 64 H 82 H Creatinine 2.2 H 2.9 H Glucose 227 H 217 H Calcium 8.3 L Phosphorus AST 55 H ALT 80 H NT-Pro-B Natriuret Pep Albumin 3.7 L PTH Intact 197.4 H Urine Creatinine Urine Chloride Urine Total Protein 04/09/19 04/10/19 10:49 09:21 WBC RDW Plt Count [place] % (Auto) Seg Neutrophils % Seg Neuts % (Manual) Seg Neutrophils # Seg Neutrophils # Man Lymphocytes # (Manual) PT INR POC ABG pH 7.289 L POC ABG pCO2 POC ABG pO2 326 H Chloride 94.2 L Carbon Dioxide 19 L BUN 98 H Creatinine 3.7 H Glucose 216 H Calcium 7.9 L Phosphorus AST ALT NT-Pro-B Natriuret Pep Albumin PTH Intact Urine Creatinine Urine Chloride Urine Total Protein - Diagnostic Findings Chest x-ray: report reviewed, image reviewed Additional studies: CXR 04/09/19 CHEST 1 VIEW INDICATION / CLINICAL INFORMATION: congestion. COMPARISON: 04/05/2019 FINDINGS: SUPPORT DEVICES: None. HEART / MEDIASTINUM: Cardiomegaly LUNGS / PLEURA: Mild interstitial pulmonary edema persists. A small right pleural effusion has developed No pneumothorax. ADDITIONAL FINDINGS: No significant additional findings. IMPRESSION: Mild interstitial pulmonary edema unchanged from 04/05/2019. A small right pleural effusion has developed Assessment and Plan 63-year-old female who is a former smoker with history of HTN, COPD, CHF, A. fib with RVR , CVA, nonischemic dilated cardiomyopathy, hypothyroidism who presents to [facility] ED with complaints of difficulty breathing and for the past 2 days. Of note pt was seen in ED on three days ago (04/02) with similar complaints. She was treat with nebulizer tx and IV steriods with improvement in symptoms. She was discharge on nebulizer tx, oral prednisone, and Tessalon Perles. One day later her symptoms began to worsened. She continued with nebs and oral steriods with no relief. Upon arrival to ED she was noted to be hypoxic and placed on BiPaP. Also complains of cough with occasional sputum production. Denies: n/v/d, dizziness, fever, headache, CP, recent tobacco use, or recent sick contact Patient presently resting on BIPAP 20/8, rate 30, FiO2 50%. Patient arterial blood gases reported pH 7.29, pO2 326, HCO3- 13.3, O2 sat 100% on 100% FiO2. PCO2 not reported. Decrease FiO2 to 40% and repeat blood gases in AM. CXR reported Mild interstitial pulmonary edema unchanged from 04/05/2019. A small right pleural effusion has developed - Patient Problems (1) Acute respiratory failure Current Visit: Yes Status: Acute Qualifiers: Respiratory failure complication: hypoxia Qualified Code(s): J96.01 - Acute respiratory failure with hypoxia Plan to address problem: 1. BIPAP 20/8, rate 30, FiO2 40%. 2. Albuterol and Atrovent q 6 hr 3. Continue IV solu-medrol. 4. Patient is on Apixaban. 5. Recommend GI prophylaxis. 6. Repeat ABG in AM. (2) COPD exacerbation Current Visit: Yes Status: Acute Plan to address problem: 1. BIPAP 20/8, rate 30, FiO2 40%. 2. Albuterol and Atrovent q 6 hr 3. Continue IV solu-medrol. 4. Patient is on Apixaban. 5. Recommend GI prophylaxis. 6. Repeat ABG in AM. 7. Recommend PFTs as outpatient. (3) Acute HFrEF (heart failure with reduced ejection fraction) Current Visit: Yes Status: Acute Plan to address problem: Management as per cardiology. (4) Acute renal failure Current Visit: Yes Status: Acute Plan to address problem: Management as per nephrology. (5) HTN (hypertension) Current Visit: Yes Status: Chronic Qualifiers: Hypertension type: essential hypertension Qualified Code(s): I10 - Essential (primary) hypertension Plan to address problem: Management as per primary care. (6) History of CVA (cerebrovascular accident) Current Visit: Yes Status: Chronic Plan to address problem: Management as per primary care.
--- NOTE | 2019-04-10 18:10 | Event Note ---
Date: 04/10/19 Came to bedside at Request of Nurse. Patient still on the floor. Family at bedside. Discussed with the daughter who appears irate and wants mother transfered to [facility]. Observed Grand daughter about to give patient fluids, asked her to stop, Patients daughter said 'dont you know patient can from dehydration" despite my objection and discussion of risk including aspiration, grand daughter proceeded to give fluids. I discussed intubation with the patient and daughter, initially the daughter objected to the discussion then later said she believes this will happen also at [facility], I proceeded to discuss the risk to which the patients daughter said "I know, i have watched enough movies and its like in the movies" I advised her that while the movies may appear to show similar, the risk however needs to be discussed including possibility of trach and peg and also decompensation following intubation. Patient and daughter agrees to intubation. Patient will be transfered to ICU, discussed with intensivisit and also ED doc, along with ICU nurse and the floor team. Charge nurse and patients Nurse supportive of efforts [facility] called back and said they are on diversion and will not accept patient. Family advised. 45 MINS IN CRITICAL CARE TIME AND COORDINATION OF CARE
[2019-04-10] MEDS: NACL 0.9% 500 ML 500 ML ONE ×2 (18:50→19:59)
--- NOTE | 2019-04-10 19:13 | Progress Note ---
Subjective Date of service: 04/10/19 (Emergent intubation) Principal diagnosis: Acute Respiratory Failure Interval history: Called to ICU for patient with impending respiratory failure. Discussed brief history with hospitalist and reviewed most recent labs. Upon arrival to bedside, patient was noted to be awake and cooperative with exam, increased WOB with tachypnea, SpO2 100% on BiPAP, tachycardic, and hypotensive. RT, hospitalist, and ICU nursing staff at bedside. Patient and family member advised of plan to intubate, to which both agreed. Patient preoxygenated on BiPAP then sedated with etomidate 10mg IV and succinylcholine 100mg IV. Intubation achieved with direct laryngoscopy with MAC 3 blade, grade 2 view (with BURP maneuver), 7.5 oETT passed easily through cords on first attempt. Placement confirmed with BBS, + CO2 color change. Dry mucus membranes noted. Atraumatic, no obvious aspiration. SpO2 100%, baseline tachycardia and hypotension throughout. Placed on vent by RT and CXR ordered. IVF bolus initiated and vasopressors ordered per ICU staff. Consuelo Dey MD Anesthesiologist Objective - Constitutional Vitals: Vital Signs - 12hr 04/10/19 04/10/19 04/10/19 08:28 08:34 08:44 Temperature 97.5 F L Pulse Rate 87 Pulse Rate [ 32 L Anterior Bilateral Throughout] Respiratory 31 H 24 Rate Respiratory 109 H Rate [Anterior Bilateral Throughout] Blood Pressure 133/69 O2 Sat by Pulse 99 100 Oximetry 04/10/19 04/10/19 04/10/19 10:02 14:06 14:08 Temperature Pulse Rate 93 H 70 Pulse Rate [ 70 Anterior Bilateral Throughout] Respiratory 26 H Rate Respiratory 28 H Rate [Anterior Bilateral Throughout] Blood Pressure 133/69 O2 Sat by Pulse 95 Oximetry 04/10/19 04/10/19 04/10/19 16:06 16:45 16:55 Temperature 97.5 F L Pulse Rate 91 H 75 Pulse Rate [ Anterior Bilateral Throughout] Respiratory 36 H 24 Rate Respiratory Rate [Anterior Bilateral Throughout] Blood Pressure 99/44 O2 Sat by Pulse 96 98 95 Oximetry - Labs CBC & Chem 7: 04/07/19 04:25 04/09/19 10:49 Labs: Abnormal lab results 04/10/19 Range/Units 09:21 POC ABG pH 7.289 L (7.35-7.45) POC ABG pO2 326 H (80-105)
[2019-04-10] MEDS ORDERED: PHENYLEPHRINE/NS Syringe 1,000 MCG/10 ML IV ONE (19:21)
[2019-04-10] MEDS: LEVOPHED DRIP 4 MG/NS 250 ML 4 MG/250 ML BAG IV SCH ×3 (20:04→23:51)
[2019-04-10] MEDS ORDERED: NACL 0.9% 250ML 250 ML IV ONE (20:35)
[2019-04-10] MEDS ORDERED: SUBLIMAZE IV PRN (20:47)
--- NOTE | 2019-04-10 20:48 | XRay Report ---
CHEST 1 VIEW 7:46 PM INDICATION / CLINICAL INFORMATION: ET tube and OG tube placement. COMPARISON: Earlier today at 11:45 AM. FINDINGS: SUPPORT DEVICES: There is a new endotracheal tube with the tip 4.5 cm above the bart. There is an o rogastric tube coursing in the stomach with the tip not seen but the proximal sidehole below the kike roesophageal junction. There is a new right jugular CVL with the tip overlying the proximal SVC. HEART / MEDIASTINUM: Cardiomegaly is stable. LUNGS / PLEURA: Mild, diffuse interstitial edema is present, but has improved. No pneumothorax. ADDITIONAL FINDINGS: There is unusual lucency in the visualized upper abdomen could be partially rela gordy to free air. IMPRESSION: 1. Possible pneumoperitoneum and/or bowel obstruction. Supine and left lateral decubitus views of the abdomen or CT of the abdomen/pelvis a be helpful in further evaluation. 2. Improving interstitial edema. 3. Multiple tubes and catheters are in good position. CRITICAL RESULT: Time of Discovery: 7:40 PM Central time Time of Communication: 7:43 PM Central time Licensed Practitioner Receiving Report: Yuko, the patient's nurse in the CCU. Read Back Performed: Yes. Signer Name: Yong Hernández MD Signed: 04/10/2019 8:44 PM Workstation Name: [id number]
[2019-04-10 20:59] LABS: ABG Base Excess -11.5 mmol/L (-2.0-3.0); ABG Methemoglobin 0.6 % (0.0-1.5); ABG Oxygen Saturation 99.4 % (95.0-99.0); ABG PCO2 30.3 mm Hg; ABG PH 7.281 pH Units (7.350-7.450); ABG PO2 267.1 mm Hg (80.0-90.0)
[2019-04-10] MEDS ORDERED: fentaNYL DRIP Premix 2,000 MCG/100 ML BAG IV SCH (21:00)
--- NOTE | 2019-04-10 21:11 | XRay Report ---
CHEST 1 VIEW 11:45 AM INDICATION / CLINICAL INFORMATION: Shortness of breath. COMPARISON: Yesterday. FINDINGS: SUPPORT DEVICES: None. HEART / MEDIASTINUM: Cardiomegaly is stable. LUNGS / PLEURA: Diffuse interstitial edema has shown slight improvement on the right. Minimal right p leural effusion has resolved. No pneumothorax. ADDITIONAL FINDINGS: No significant additional findings. IMPRESSION: Slight improvement in congestive heart failure since yesterday. Signer Name: Yong Hernández MD Signed: 04/10/2019 9:07 PM Workstation Name: [id number]
[2019-04-10] MEDS ORDERED: SODIUM BICARBONATE 150 MEQ in D5W 1,000 ML IV SCH (22:00)
[2019-04-10 22:02] LABS: Hematocrit 34.2 % (30.3-42.9); Hemoglobin 10.7 gm/dl (10.1-14.3)
--- NOTE | 2019-04-10 22:20 | Event Note ---
Date: 04/10/19 Discussed the case with the nurse practitioner. Pt is admitted for primarily respiratory issues. After being on BiPap, patient was noted to have abdominal distention. She did have 2 Bms on the 1st and she was taking in some PO over the last few days. After patient was intubated earlier today, CXR was done per normal protocol, and the report suggested a possible pneumoperitoneum or bowel obstruction. It was also reported by the nurse practitioner that the NGT had blood return. I suggested that we get a stat CT to confirm that there is actual ly free air as the history does not support that she was having any GI issues at any time before this CXR. They will let me know the results when it is available. In the meantime, I have recommended that they continue to resuscitate the patient.
[2019-04-10] MEDS ORDERED: ADRENALIN ONE (22:24)
[2019-04-10] MEDS ORDERED: D50W (25GM) Syringe IV ONE (22:24)
[2019-04-10] MEDS ORDERED: CORDARONE IV ONE (22:24)
[2019-04-10] MEDS ORDERED: CALCIUM CHLORIDE IV ONE (22:24)
[2019-04-10] MEDS ORDERED: ADRENALIN IV ONE (22:24)
[2019-04-10] MEDS: NEO-SYNEPHRINE 100 MG in NACL 0.9% 90 ML IV SCH (22:28)
[2019-04-10] MEDS ORDERED: PROTONIX 80 MG in NACL 0.9% 100 ML IV SCH (23:00)
[2019-04-10] MEDS ORDERED: QUELICIN ONE (23:00)
[2019-04-10] MEDS ORDERED: AMIDATE IV ONE (23:00)
[2019-04-10] MEDS: ELIQUIS PO SCH (23:06)
--- NOTE | 2019-04-10 23:14 | Event Note ---
CODE BLUE initial rhythm PEA, ACLS protocol was initiated She received several rounds of epi, shocked several times for V. tach, given amiodarone She was also treated for presumed hyperkalemia given peaked T waves There was ROSC, refer to code sheet for details Is given IV fluid boluses, started on pressors She had 1 L of coffee-ground emesis, given Protonix GI was consulted to see the patient, serial hemoglobin Check labs Addendum Patient coded a second time Potassium came back at 6.7, she was given further treatments ACLS protocol initiated, referred to the code sheet for details Prognosis discussed with family at bedside results of the CT was reviewed, discussed with Dr. Charles The patient had received Zosyn, vancomycin, add Flagyl There was ROS see however the patient coded again She has been maxed out on 5 pressors ACLS protocol was initiated, time of 0244 Family at bedside CC 90 minutes
[2019-04-10] MEDS ORDERED: PROTONIX IV ONE (23:25)
[2019-04-10] MEDS ORDERED: Vasostrict 20 UNIT in NACL 0.9% 100 ML IV SCH (23:45)
[2019-04-10 23:47] LABS: ABG Base Excess -16.2 mmol/L (-2.0-3.0); ABG HCO3 10.8 mmol/L (20.0-26.0); ABG Methemoglobin 0.6 % (0.0-1.5); ABG Oxygen Saturation 99.3 % (95.0-99.0); ABG PCO2 29.9 mm Hg
[2019-04-10 23:52] LABS: ABG PH 7.176 pH Units (7.350-7.450)
[2019-04-11 00:20] LABS: Calcium 7.9 mg/dL (8.4-10.2)
--- NOTE | 2019-04-11 00:25 | Event Note ---
Date: 04/11/19 LATE ENTRY Called by hospitalist about transfer of very sick patient to ICU. Patient with severe metabolic acidosis, uncompensated. I recommended intubation, and treatment per severe sepsis protocol. I have managed her remotely overnight... multiple calls from RN re severe acidosis, hypotension. ABG done- shows uncompensated metabolic acidosis- ordered lactic acid. Made adjustments to minute ventilation for better gas exchange, asked for hospitalist service to physically evaluate the patient Bicarb infusion started, accuchecks with hypoglycemic protocol initiated Vasopressor for MAP<65 Keep strict npo for now VAP bundle addressed, lung protective strategies
[2019-04-11 00:28] LABS: Hemoglobin 8.1 gm/dl (10.1-14.3); Mean Corpuscular HGB Conc 30 % (30-34); Mean Corpuscular Volume 100 fl (79-97); Red Cell Distribution Width 16.7 % (13.2-15.2)
[2019-04-11 00:29] LABS: Platelet Count 57 K/mm3 (140-440)
[2019-04-11] MEDS ORDERED: VANCOMYCIN IV ONE (00:35)
[2019-04-11] MEDS ORDERED: NACL 0.9% IV ONE (00:35)
[2019-04-11] MEDS ORDERED: ZOSYN/NS 2.25 GM/50ML 2.25 GM/50 ML BAG IV SCH (01:00)
[2019-04-11] MEDS ORDERED: ZOSYN/NS 4.5GM/100ML 4.5 GM/100 ML VIAL IV SCH (01:00)
[2019-04-11] MEDS ORDERED: KIONEX PR ONE (01:08)
[2019-04-11] MEDS ORDERED: ATROPINE 0.1% (CARDIAC) ONE ×2 (01:10→02:32)
[2019-04-11] MEDS ORDERED: CALCIUM GLUCONATE 1,000 MG in NACL 0.9% 100 ML IV ONE (01:11)
[2019-04-11] MEDS ORDERED: D50W (25GM) Syringe IV PRN (01:11)
[2019-04-11] MEDS ORDERED: HumuLIN R IV ONE (01:16)
[2019-04-11] MEDS ORDERED: CALCIUM CHLORIDE 1,000 MG in NACL 0.9% 100 ML IV ONE (01:17)
[2019-04-11] MEDS ORDERED: DOBUTREX DRIP 500MG/D5W 250ML 500 MG/250 ML BAG IV ONE (01:17)
[2019-04-11] MEDS ORDERED: CALCIUM CHLORIDE IV ONE ×2 (01:21→02:32)
--- NOTE | 2019-04-11 01:30 | Cat Scan Report ---
CT ABDOMEN AND PELVIS WITHOUT CONTRAST INDICATION: MAIN: AMS. bowel obstruction. TECHNIQUE: Axial CT images were obtained through the abdomen and pelvis without IV contrast. All CT [facility] are performed using CT dose reduction for ALARA by means of automated exposure control. COMPARISON: None available. FINDINGS: LOWER CHEST: Airspace consolidation both lower lobes, right greater than left characteristic for bron chopneumonia. Small amount of nondependent gas within the right atrium likely secondary to recent IV infusion. LIVER: No significant abnormality. GALLBLADDER: No significant abnormality. BILE DUCTS: Hyperdense gallstones versus gallbladder sludge. PANCREAS: No significant abnormality. SPLEEN: No significant abnormality. ADRENALS: No significant abnormality. RIGHT KIDNEY and URETER: No significant abnormality. LEFT KIDNEY and URETER: No significant abnormality. STOMACH and SMALL BOWEL: NG tube tip in body of stomach fluid-filled moderately dilated loops of prox imal and mid small bowel with transition point in distal small bowel with collapse of ileum. Small ramón wel pneumatosis seen best on axial images 127 through 133 with small amount of possible mesenteric ve nous gas noted. COLON: Probable bowel wall thickening of cecum suggestive for colitis. APPENDIX: No significant abnormality. PERITONEUM: Small amount of free fluid/ascites. No free air. No fluid collection. LYMPH NODES: No significant adenopathy. AORTA and ARTERIES: Extensive vascular calcifications within nonaneurysmal abdominal aorta and iliac arteries. IVC and VEINS: No significant abnormality. URINARY BLADDER: Collapsed with Dominguez catheter in place. REPRODUCTIVE ORGANS: Enlarged leiomyomatous uterus containing several partially calcified leiomyomas. ADDITIONAL FINDINGS: None. SKELETAL SYSTEM: Chronic L5 spondylolysis with grade 1 anterolisthesis and moderate degenerative ramirez ges at L5-S1. Diffuse osteopenia. IMPRESSION: 1. Moderate grade distal small bowel obstruction. 2. Extensive small bowel ischemia/right-sided colitis with pneumatosis and possible small amount of g as seen within the mesenteric veins. 3. Bilateral lower lobe pneumonia 4. Probable cholelithiasis. 5. Small amount of ascites characteristic for small bowel weeping. CRITICAL RESULT: Ischemic small bowel and right colitis with pneumatosis and distal small bowel obstr uction. Recommend immediate surgical consultation. Time of Discovery: 12:10 AM central time 04/11/2019 Time of Communication: 12:22 AM central time 04/11/2019 Licensed Practitioner Receiving Report: Nurse Leiva Read Back Performed: Yes. Signer Name: Dwight Chappell MD Signed: 04/11/2019 1:25 AM Workstation Name: [id number]
[2019-04-11] MEDS ORDERED: NACL 0.9% 1000 ML 1,000 ML ONE (01:39)
[2019-04-11] MEDS: NEO-SYNEPHRINE 100 MG in NACL 0.9% 90 ML IV SCH (01:44)
[2019-04-11] MEDS: LEVOPHED DRIP 4 MG/NS 250 ML 4 MG/250 ML BAG IV SCH (01:47)
[2019-04-11] MEDS ORDERED: DOBUTREX DRIP 500MG/D5W 250ML 500 MG/250 ML BAG IV SCH (02:00)
[2019-04-11] MEDS ORDERED: FLAGYL 500 MG/100 ML 500 MG/100 ML BAG IV SCH (02:00)
[2019-04-11 02:15] LABS: INR TNR (0.87-1.13); Partial Thromboplastin Time TNR Sec. (24.2-36.6)
[2019-04-11] MEDS ORDERED: CORDARONE IV ONE (02:32)
[2019-04-11] MEDS ORDERED: D50W (25GM) Syringe IV ONE (02:32)
[2019-04-11] MEDS ORDERED: ADRENALIN ONE (02:32)
[2019-04-11] MEDS ORDERED: INTROPIN DRIP 800 MG/D5W 250 ML IV ONE (02:32)
--- NOTE | 2019-04-11 02:32 | Event Note ---
Date: 04/11/[address] findings. Discussed case with Dr. Thibodeaux. Since I spoke with the nurse practitioner, the patient has coded twice and is about to code again. Pt has a GI bleed and is now on 4 pressors. Patient is not able to be moved to OR. No free air noted on CT, but has many other significant findings. Dr. Thibodeaux does not feel that it is necessary for me to come at this point. She will call if something changes.
[2019-04-11] MEDS ORDERED: INTROPIN DRIP 800 MG/D5W 250 ML 800 MG/250 ML BAG IV SCH (03:00)
[2019-04-11] MEDS ORDERED: ADRENALIN 8 MG in NACL 0.9% 250ML 242 ML IV SCH (03:00)
[2019-04-11 03:24] LABS: Band Neutrophils # (Manual) 0.2 K/mm3; Basophils % (Manual) 0 % (0.0-1.8); Eosinophils % (Manual) 0 % (0.0-4.3); Total Cells Counted 100
[2019-04-11 03:25] LABS: Anisocytosis Few
[2019-04-11 03:26] LABS: Platelet Estimate Consistent w Auto
[2019-04-11 04:05] VITALS: BP 86/35
--- NOTE | 2019-04-11 07:15 | Death Summary ---
Summary - Providers Date of service: 04/11/19 Consults: 04/05/19 19:46 Consult to Physician [CONS] Routine Comment: Consulting Provider: JOHAN ALVAREZ Physician Instructions: Reason For Exam: AE CHF, A-fib RVR 04/05/19 20:32 Consult to Physician [CONS] Routine Comment: Consulting Provider: MUNIR MAN Physician Instructions: Reason For Exam: David ?? CKD 04/10/19 09:22 Consult to Physician [CONS] Routine Comment: Consulting Provider: DAKOTAH PAVON Physician Instructions: Reason For Exam: respiratory failure 04/10/19 18:51 Consult to PICC Line RN [CONS] Routine Reason For Exam: shock Type Line:: PICC 04/10/19 21:45 Consult to Physician [CONS] Stat Comment: Consulting Provider: ORTEGA GAITAN Physician Instructions: Reason For Exam: possible perforated bowel 04/10/19 23:30 Consult to Physician [CONS] Stat Comment: Consulting Provider: OTF CHANDRA Physician Instructions: Reason For Exam: GIB Attending: SEVERINO PORTILLO MD - summary Date of admission: 04/05/19 19:09 Date of : 04/11/19 Significant findings: Patient is a 63-year-old female who is a former smoker with history of HTN, COPD, CHF, A. fib with RVR , CVA, nonischemic dilated cardiomyopathy, hypothyroidism who presents to [facility] ED with complaints of difficulty breathing and for the past 2 days. Of note pt was seen in ED on three days ago (04/02) with similar complaints. She was treat with nebulizer tx and IV steriods with improvement in symptoms. She was discharge on nebulizer tx, oral prednisone, and Tessalon Perles. One day later her symptoms began to worsened. She continued with nebs and oral steriods with no relief. Upon arrival to ED she was noted to be hypoxic and placed on BiPaP. Also complains of cough with occasional sputum production. * Echo: report reviewed (10/2018 showed EF 20-25%, septal wall hypertrophy, impaired relaxation, LA mildly dilated, RV systolic function mildly reduced, trivial pericardial effusion.) * Cardiac cath 07/2017 showed mildly dilated LV, EF 40-45%, minimal coronary irregularities * EKG: report reviewed, image reviewed: Atrial Fibrillation * Patient still acutely short of breath with increased work of breathing- Transfer order placed to [facility], pulmonary consult placed * On arrival today 04/10/19, patient acutely short of breath, on BIPAP. Discussed with family about moving the patient to [facility], initially family wanted patient moved to [facility] and initiated call. [place] denied the request, stating they where on Diversion. * Patient on reevaluation on the floor, appeared to be with worsening Respiration, after discussion with family and associated risk, decision was made to Intubate the patient * She was started on Pressors, Central line placed. * The patient later in the evening decompensated, there was concern for GI bleed, small bowel obstruction and questionable perforation. * Despite all efforts to resusciate the patient, she and was pronounced by my collegue. Acute Hypoxic Respiratory Failure Acute exacerbation of COPD Severe Metabolic Acidosis Severe Sepsis Ischemic Bowel Small Bowl Obstruction Bilateal Lower lobe pneumonia Acute on chronic systolic heart failure Acute kidney injury, vasomotor nephropathy Atrial fibrillation with RVR Hypertension
[2019-04-11] MEDS ORDERED: PROTONIX IV SCH (10:00)
[2019-04-11] MEDS ORDERED: NACL 0.9% 1000 ML ONE (17:12)
--- NOTE | 2019-04-11 20:50 | Event Note ---
Date: 04/10/19 I was called by pt's nurse to reports an abnormal abdominal x-ray result,
== END 2019-04-11 05:29 | DRG 871 ==
LOC: ED 15:49 → 4A 19:09 → UNDODISIN 04-07 21:45 → CC1 04-10 18:27
PROVIDERS: ADMIT Internal Medicine; ATTEND Internal Medicine
PROC: 4A033R1 Measurement of Arterial Saturation, Peripheral, Percutaneous Approach (ICD-10-PCS; principal; 2019-04-05)
PROC: 5A09357 Assistance with Respiratory Ventilation, Less than 24 Consecutive Hours, Continuous Positive Airway Pressure (ICD-10-PCS; 2019-04-05)
PROC: 5A09357 Assistance with Respiratory Ventilation, Less than 24 Consecutive Hours, Continuous Positive Airway Pressure (ICD-10-PCS; 2019-04-06)
PROC: 5A09357 Assistance with Respiratory Ventilation, Less than 24 Consecutive Hours, Continuous Positive Airway Pressure (ICD-10-PCS; 2019-04-07)
PROC: 5A09357 Assistance with Respiratory Ventilation, Less than 24 Consecutive Hours, Continuous Positive Airway Pressure (ICD-10-PCS; 2019-04-09)
PROC: 5A1935Z Respiratory Ventilation, Less than 24 Consecutive Hours (ICD-10-PCS; 2019-04-10)
PROC: 0BH17EZ Insertion of Endotracheal Airway into Trachea, Via Natural or Artificial Opening (ICD-10-PCS; 2019-04-10)
PROC: 5A09357 Assistance with Respiratory Ventilation, Less than 24 Consecutive Hours, Continuous Positive Airway Pressure (ICD-10-PCS; 2019-04-10)
DX: A41.9 Sepsis, unspecified organism (principal); N17.0 Acute kidney failure with tubular necrosis; J96.01 Acute respiratory failure with hypoxia; J18.1 Lobar pneumonia, unspecified organism; I50.43 Acute on chronic combined systolic (congestive) and diastolic (congestive) heart failure; I47.2 Ventricular tachycardia; K55.9 Vascular disorder of intestine, unspecified; I42.0 Dilated cardiomyopathy; J44.1 Chronic obstructive pulmonary disease with (acute) exacerbation; K56.609 Unspecified intestinal obstruction, unspecified as to partial versus complete obstruction; J44.0 Chronic obstructive pulmonary disease with (acute) lower respiratory infection; I48.92 Unspecified atrial flutter; K92.2 Gastrointestinal hemorrhage, unspecified; R65.20 Severe sepsis without septic shock; I11.0 Hypertensive heart disease with heart failure; E03.9 Hypothyroidism, unspecified; I48.2 Chronic atrial fibrillation; F17.200 Nicotine dependence, unspecified, uncomplicated; K21.9 Gastro-esophageal reflux disease without esophagitis; E78.2 Mixed hyperlipidemia; Z79.01 Long term (current) use of anticoagulants; Z86.73 Personal history of transient ischemic attack (TIA), and cerebral infarction without residual deficits; Z79.899 Other long term (current) drug therapy; I25.2 Old myocardial infarction; Z79.82 Long term (current) use of aspirin
CPT/HCPCS: 36415; 36600; 71045; 74176; 76770; 80048; 80053; 81015; 82043; 82140; 82436; 82570; 82803; 82962; 83735; 83880; 83970; 84100; 84156; 84300; 84484; 85007; 85014; 85018; 85025; 85027; 85610; 85730; 86706; 86803; 87070; 87205; 89050; 92950; 93005; 93010; 94002; 94640; 94644; 94660; 94760; 96374; G0378; A9270-GY; C9113; J0171; J0282; J0330; J0461; J1250; J1265; J1815; J1940; J2370; J2405; J2543; J2920; J2930; J3010; J3370; J7030; J7040; J7050; J7070